=== PATIENT | male | born 1990 | race Caucasian/White ===

== ENCOUNTER 2023-03-13 07:34 | Emergency (ER) | payer OTHER, SELFPAY ==
[2023-03-13 07:37] VITALS: BP 122/94; PULSE 76; RESP 18; TEMP 36.7; O2SAT 99; BMI 24.9
--- NOTE | 2023-03-13 07:55 | XR_ITS ---
The [address] [address] Patient Name: ROSALINE WOODSON MRN: [id number] date: 1990 Sex: M Assigned Patient Location: ED.MAIN Current Patient Location: ER Accession/Order Number: [id number] Exam Date: 03/13/2023 07:48 Report Date: 03/13/2023 08:09 At the request of: MERT PACHECO Procedure: XR hand RT min 3V PROCEDURE: XR hand RT min 3V COMPARISON: None. HISTORY: injury attention rt thumb FINDINGS: BONES:No fracture, acute abnormality, or significant arthropathy. SOFT TISSUES:Negative. No visible soft tissue swelling. EFFUSION:None visible. OTHER: Negative. XR/XR hand RT min 3V IMPRESSION: No acute fracture Electronically authenticated by: GIOVANNA LOZA Date: 03/13/2023 08:09
[2023-03-13] MEDS: IBUPROFEN 600 MG TABLET PO (07:56)
--- NOTE | 2023-03-13 08:48 | ED_ITS ---
HPI - General Adult General Chief complaint: Extremity Injury, Upper Stated complaint: INJURED R THUMB IN CAR DOOR Time Seen by Provider: 03/13/23 08:48 Source: patient Mode of arrival: walk-in Limitations: no limitations History of Present Illness HPI narrative: Patient is a 32-year-old male who is presenting to the Emergency Room today with chief complaint of right thumb pain. At approximately 7 PM last night, patient had a close his right thumb In a car. Patient is right-hand dominant. 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 Patient is taken nothing today for pain. Patient is not been icing it. Patient does have a small subungual hematomas well. Patient had done research on the Internet, and patient was wondering if we really do trephination. Education on the this injury happened at 7 PM last night. The area is small, approximately 2 mm x 4 mm at the base of the nail. Mild swelling. No indication for trephination at this time. Patient understands. . All systems are negative except as noted/marked. All systems reviewed and otherwise negative. . Nurses note and vital signs reviewed and patient is not hypoxic. General: The patient appears well and in no apparent distress. Patient is resting comfortably on cart. Patient is not toxic, lethargic, or listless Skin: Warm, dry, no pallor noted. There is no rash noted. No petechiae, purpura. Head: Normocephalic, atraumatic Eye: Normal conjunctiva, no drainage, EOMI. PERRL Ears, Nose, Mouth, and Throat: oral mucosa is moist. Cardiovascular: Regular Rate and Rhythm, no murmur, gallop, rub Respiratory: Patient is in no distress, no accessory muscle use, lungs are clear to auscultation, no wheezing, rales or rhonchi Musculoskeletal: Patient has full range of motion of all of the extremities Except to the right thumb. Patient has mild pain over the proximal phalanx, moderate test palpation over the distal phalanx of the right thumb. Patient has a small subungual hematoma to the base of the right fingernail, approximately 4 x 2 mm. There is small. This is a 7 PM last night. Patient does have range of motion of the IP joint of the right thumb with mild to moderate pain. No motor, sensory, or focal neurological deficits. Neurological: A&O x3, normal speech Psychiatric: Cooperative Related Data Home Medications Medication Instructions Recorded Confirmed amitriptyline 50 mg tablet 50 mg PO .qhs 03/13/23 03/13/23 Allergies Allergy/AdvReac Type Severity Reaction Status Date / Time No Known Drug Intolerances AdvReac Intermediate Verified 03/13/23 07:37 PFSH PFSH Social History Smoking status: Current every day smoker Exam Constitutional Vital Signs, click to edit/add: Last Vital Signs Temp 98.1 F 03/13/23 07:37 Pulse 76 03/13/23 07:37 Resp 18 03/13/23 07:37 BP 122/94 H 03/13/23 07:37 Pulse Ox 99 03/13/23 07:37 Course Vital Signs Vital signs: Vital Signs Temperature 98.1 F 03/13/23 07:37 Pulse Rate 76 03/13/23 07:37 Respiratory Rate 18 03/13/23 07:37 Blood Pressure 122/94 H 03/13/23 07:37 Pulse Oximetry 99 03/13/23 07:37 Temperature 98.1 F 03/13/23 07:37 Pulse Rate 76 03/13/23 07:37 Respiratory Rate 18 03/13/23 07:37 Blood Pressure 122/94 H 03/13/23 07:37 Pulse Oximetry 99 03/13/23 07:37 Medical Decision Making MDM Narrative Medical decision making narrative: Patient's right thumb x-ray shows no acute fracture, dislocation, or acute abnormality. Patient was placed in a aluminum finger splint to the right thumb. Splint was assisted with . the patient was neurovascularly intact before and after the splint was placed. the affected bones/injured area had proper alignment in a splint. Education on splint care at home was given at bedside. Patient and family have no questions at discharge. Education was done at bedside on trephination on subungual hematoma. This injury occurred at 7 PM last night, the areas very small Subungual hematoma, no indication for trephination at this time. Patient understands. Patient will use anti-inflammatories and ice. Patient will follow-up with PCP, work restriction are given, no questions at discharge. Discharge Plan Discharge Chief Complaint: Extremity Injury, Upper Clinical Impression: Subungual hematoma, Contusion of right thumb Time of Disposition Decision: 08:54 Condition: Fair Prescriptions / Home Meds: No Action amitriptyline 50 mg tablet 50 mg PO .qhs Instructions: Subungual Hematoma (ED), Contusion in Adults (ED) Additional Instructions: Use ice 20 minutes on, 20 minutes off. Alternate Tylenol and Motrin every 6 hours to help with pain. He is aluminum finger splint for the next 2-3 days. A fter 3 days, start performing normal range of motion of flexion and extension of right thumb to get back to normal activity. Work restriction note given. Stand Alone Forms: Portal Instructions Referrals: Kai Lares MD [Primary Care Provider] - 1 week
== END 2023-03-13 09:04 | disposition home or self-care (01) ==
PROVIDERS: Emergency Provider Emergency Medicine; PCP Family Medicine
DX: S60.111A Contusion of right thumb with damage to nail, initial encounter (principal); W23.0XXA Caught, crushed, jammed, or pinched between moving objects, initial encounter; F17.210 Nicotine dependence, cigarettes, uncomplicated
CPT/HCPCS: 29130; 73130; 99283

== ENCOUNTER 2023-04-12 14:08 | Emergency (ER) | payer OTHER, SELFPAY ==
[2023-04-12 14:21] VITALS: BP 139/92; PULSE 94; RESP 20; TEMP 36.9; O2SAT 96; BMI 24.1
[2023-04-12] MEDS: 0.9 % SODIUM CHLORIDE 1,000 ML 1000 ML IV (15:37)
[2023-04-12 15:41] LABS: Basophils Absolute Auto 0.1 10^3/uL (0.0-0.1); Basophils Percent Auto 0.4 % (0.2-2.0); Eosinophils Percent Auto 0.3 % (0.9-7.0); Hematocrit 42.3 % (42.0-54.0); Hemoglobin 14.5 g/dL (14.0-18.0); Immature Granulocytes Abs Auto 0.05 10^3/uL (0.00-0.03); Immature Granulocytes Pct Auto 0.4 % (0.0-0.5); Lymphocytes Absolute Auto 1.8 10^3/uL (1.2-3.8); Lymphocytes Percent Auto 14.4 % (20.5-60.0); Mean Corpuscular HGB Conc 34.3 g/dL (29.9-35.2); Mean Corpuscular Hemoglobin 31.1 pg (25.9-34.0); Mean Corpuscular Volume 90.8 fL (80.0-94.0); Mean Platelet Volume 9.3 fL (9.5-13.5); Monocytes Absolute Auto 0.8 10^3/uL (0.3-0.8); Monocytes Percent Auto 6.3 % (1.7-12.0); Neutrophils Absolute Auto 9.7 10^3/uL (1.4-6.5); Neutrophils Percent Auto 78.2 % (43.0-75.0); Platelet Count 280 10^3/uL (150-450); Red Blood Count 4.66 10^6/uL (4.70-6.10); Red Cell Distribution Width 13.4 % (11.0-15.0); White Blood Count 12.5 10^3/uL (4.0-11.0)
--- NOTE | 2023-04-12 15:44 | PC.NURSE ---
pt presents to ED c/o epigastric pain for the last 3 days and nausea/vomiting. pt states he has thrown up twice today. 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 pt states he has had similar episodes in the past.
--- NOTE | 2023-04-12 15:45 | ED.ABDPAIN1 ---
HPI - Abdominal Pain General Chief Complaint: Abdominal Pain Stated Complaint: ABDOMINAL PAIN Time Seen by Provider: 04/12/23 15:19 Source: patient Mode of arrival: walk-in Limitations: no limitations History of Present Illness HPI narrative: 32-year-old male presents for generalized abdominal pain that started 5 days ago. He states it is getting worse. He complains of nausea no vomiting. Denies frequent alcohol intake. Denies radiation of pain. Denies fever, back pain, v/d, SOB or CP Related Data Home Medications Medication Instructions Recorded Confirmed amitriptyline 50 mg tablet 50 mg PO .qhs 03/13/23 03/13/23 Previous Rx's Medication Instructions Recorded lactulose 10 gram/15 mL (15 mL) 20 g (30 mL) PO DAILY PRN 04/12/23 oral solution constipation 5 days #150 mL Allergies Allergy/AdvReac Type Severity Reaction Status Date / Time No Known Drug Intolerances AdvReac Intermediate Verified 03/13/23 07:37 Review of Systems ROS Status of ROS 10 or more systems reviewed and unremarkable except as noted in history and below [facility] Social History Smoking status: Heavy tobacco smoker Exam Narrative Exam Narrative: General: alert, moderate distress due to pain, talking in full an complete sentences skin: warm, dry, intact head: normocephalic, atraumatic eyes: EOMI nose: nares patent neck: supple, trachea midline respiratory: non-labored extremities: FROM x 4, strength +5/5 abd: soft, generalized tenderness, no guarding or rigidity, no peritoneal signs, normal BS neuro: A&Ox3 psych: appropriate mood and affect, cooperative Constitutional Vital Signs, click to edit/add: Last Vital Signs Temp 98.5 F 04/12/23 14:21 Pulse 115 H 04/12/23 17:55 Resp 20 04/12/23 14:21 BP 115/88 04/12/23 17:55 Pulse Ox 95 04/12/23 17:55 O2 Del Method Room Air 04/12/23 14:21 Course Vital Signs Vital signs: Vital Signs Temperature 98.5 F 04/12/23 14:21 Pulse Rate 94 H 04/12/23 14:21 Respiratory Rate 20 04/12/23 14:21 Blood Pressure 139/92 H 04/12/23 14:21 Pulse Oximetry 96 04/12/23 14:21 Oxygen Delivery Method Room Air 04/12/23 14:21 Temperature 98.5 F 04/12/23 14:21 Pulse Rate 115 H 04/12/23 17:55 Respiratory Rate 20 04/12/23 14:21 Blood Pressure 115/88 04/12/23 17:55 Pulse Oximetry 95 04/12/23 17:55 Oxygen Delivery Method Room Air 04/12/23 14:21 MDM - Abdominal Pain MDM Narrative Medical decision making narrative: Patient's lips appear dry will be given IV fluids and Toradol. Nurse informs me that he declined the Toradol and states that this does not work and the only things that work for him is morphine and Dilaudid. He states that if he does not receive either of these narcotic medications that he is leaving. [facility] reviewed. CAT scan came to get patient and he declined and is requesting nausea medication will be given Zofran. WBC 12.5. Patient is now in agreements to take the Toradol. Patient is continuing to complain of pain and is continuing to threaten to leave if he does not get narcotics. Patient states Dr. Lares had him admitted for a week in the past and gave him narcotics. He states that he knows what works and what does not. I did order Bentyl. He declined this. No acute findings on final read of CT, other than constipation. Dose of lactulose is ordered. Records reviewed from previous admission 6 months ago when he was admitted for dehydration due to hyperemesis secondary to cyclic vomiting syndrome as he does smoke cannabis. Normal lactic and no signs of problems related to SMA. Upon recheck, he is sitting on the bed comfortably and will be given a prescription for lactulose and follow-up with family doctor. repeat pulse 90. afebrile, not tachypneic, not tachycardic, tolerating p.o., not hypoxic, non toxic appearing and hemodynamically stable to be d/c. answered all questions. pt in agreement with tx. educated when to return to ER. Medical Records Attestation: I reviewed the patient's medical records. Lab Data Labs: Lab Results 04/12/23 04/12/23 Range/Units 15:32 17:15 WBC 12.5 H (4.0-11.0) 10^3/uL RBC 4.66 L (4.70-6.10) 10^6/uL Hgb 14.5 (14.0-18.0) g/dL Hct 42.3 (42.0-54.0) % MCV 90.8 (80.0-94.0) fL MCH 31.1 (25.9-34.0) pg MCHC 34.3 (29.9-35.2) g/dL RDW 13.4 (11.0-15.0) % Plt Count 280 (150-450) 10^3/uL MPV 9.3 L (9.5-13.5) fL Neut % (Auto) 78.2 H (43.0-75.0) % Lymph % (Auto) 14.4 L (20.5-60.0) % Luce % (Auto) 6.3 (1.7-12.0) % Eos % (Auto) 0.3 L (0.9-7.0) % Baso % (Auto) 0.4 (0.2-2.0) % Neut # (Auto) 9.7 H (1.4-6.5) 10^3/uL Lymph # (Auto) 1.8 (1.2-3.8) 10^3/uL Luce # (Auto) 0.8 (0.3-0.8) 10^3/uL Eos # (Auto) 0.0 (0.0-0.7) 10^3/uL Baso # (Auto) 0.1 (0.0-0.1) 10^3/uL Abs Immat Gran (auto) 0.05 H (0.00-0.03) 10^3/uL Imm/Tot Granulo (auto) 0.4 (0.0-0.5) % Sodium 136 (136-145) mmol/L Potassium 4.5 (3.5-5.1) mmol/L Chloride 102 (98-107) mmol/L Carbon Dioxide 26.6 (21.0-32.0) mmol/L Anion Gap 11.9 BUN 16.0 (7.0-18.0) mg/dL Creatinine 0.79 (0.70-1.30) mg/dL Est GFR ( Amer) >60 (>=60) Est GFR (Non-Af Amer) >60 (>=60) BUN/Creatinine Ratio 20.3 Glucose 112 H (74-106) mg/dL Lactate 0.5 (0.4-2.0) mmol/L Calcium 10.1 (8.5-10.1) mg/dL Magnesium 2.3 (1.8-2.4) mg/dL Total Bilirubin 0.5 (0.2-1.0) mg/dL AST 20 (15-37) U/L ALT 37 (16-63) U/L Alkaline Phosphatase 94 (46-116) U/L Total Protein 8.1 (6.4-8.2) g/dL Albumin 4.4 (3.4-5.0) g/dL Globulin 3.7 g/dL Albumin/Globulin Ratio 1.2 Urine Color Yellow (YELLOW) Urine Clarity Clear (CLEAR) Urine pH 7.0 (5.0-9.0) Ur Specific [place] 1.015 (1.005-1.025) Urine Protein Trace (NEG/TRACE) mg/dL Urine Glucose (UA) Negative (NEGATIVE) mg/dL Urine Ketones 15 A (NEGATIVE) mg/dL Urine Occult Blood Negative (NEGATIVE) Urine Nitrite Negative (NEGATIVE) Urine Bilirubin Negative (NEGATIVE) Urine Urobilinogen 0.2 (0.2-1.0) EU/dL Ur Leukocyte Esterase Negative (NEGATIVE) Urine RBC 0-2 (0-2) #/HPF Urine WBC None seen (NONE SEEN) #/HPF Ur Squamous Epith Cells None seen (NONE/RARE) #/LPF Urine Crystals None seen (None Seen) #/HPF Urine Bacteria Trace A (NONE SEEN) #/HPF Urine Casts None seen (NONE SEEN) #/LPF Urine Mucus Moderate A (NONE SEEN) Urine Opiates Screen Negative (NEGATIVE) Ur Buprenorphine Scrn Negative (NEGATIVE) Ur Oxycodone Screen Negative (NEGATIVE) Urine Methadone Screen Negative (NEGATIVE) Ur Propoxyphene Screen Negative (NEGATIVE) Ur Barbiturates Screen Negative (NEGATIVE) U Tricyclic Antidepress Positive A (NEGATIVE) Ur Phencyclidine Scrn Negative (NEGATIVE) Ur Amphetamines Screen Negative (NEGATIVE) U Methamphetamines Scrn Negative (NEGATIVE) U Benzodiazepines Scrn Negative (NEGATIVE) Urine Cocaine Screen Negative (NEGATIVE) U Cannabinoids Screen Positive A (NEGATIVE) Discharge Plan Discharge Chief Complaint: Abdominal Pain Clinical Impression: Abdominal pain Qualifiers: Abdominal location: generalized Qualified Code(s): R10.84 - Generalized abdominal pain Constipation Qualifiers: Constipation type: unspecified constipation type Qualified Code(s): K59.00 - Constipation, unspecified Patient Disposition: Home, Self-Care Time of Disposition Decision: 17:59 Condition: Good Mode of Transportation: Private Vehicle Prescriptions / Home Meds: New lactulose 10 gram/15 mL (15 mL) solution 20 g PO DAILY PRN (Reason: constipation) 5 Days Qty: 150 0RF No Action amitriptyline 50 mg tablet 50 mg PO .qhs Instructions: Constipation (ED), Abdominal Pain (ED) Stand Alone Forms: Portal Instructions Referrals: Kai Lares MD [Primary Care Provider] - 1 week
[2023-04-12 15:53] LABS: Anion Gap 11.9; Carbon Dioxide 26.6 mmol/L (21.0-32.0); Chloride 102 mmol/L (98-107); Glucose 112 mg/dL (74-106); Magnesium 2.3 mg/dL (1.8-2.4); Potassium 4.5 mmol/L (3.5-5.1); Sodium 136 mmol/L (136-145)
[2023-04-12 15:54] LABS: Alanine Aminotransferase 37 U/L (16-63); Albumin Globulin Ratio 1.2; Albumin Level 4.4 g/dL (3.4-5.0); Alkaline Phosphatase 94 U/L (46-116); Aspartate Amino Transferase 20 U/L (15-37); BUN Creatinine Ratio 20.3; Bilirubin Total 0.5 mg/dL (0.2-1.0); Calcium 10.1 mg/dL (8.5-10.1); Estimated GFR (African America >60 (>=60); Estimated GFR (Non-African Ame >60 (>=60); Globulin 3.7 g/dL; Total Protein 8.1 g/dL (6.4-8.2)
[2023-04-12 16:27] LABS: Lactate/Lactic Acid 0.5 mmol/L (0.4-2.0)
[2023-04-12 16:30] VITALS: BP 137/93
[2023-04-12] MEDS: KETOROLAC TROMETHAMINE 30 MG/ML VIAL 15 MG IVP (16:30)
[2023-04-12] MEDS: ONDANSETRON PF 4 MG/2 ML VIAL IV (16:30)
--- NOTE | 2023-04-12 16:53 | CT_ITS ---
The [address] [address] Patient Name: ROSALINE WOODSON MRN: [id number] date: 1990 Sex: M Assigned Patient Location: ER Current Patient Location: ER Accession/Order Number: [id number] Exam Date: 04/12/2023 16:48 Report Date: 04/12/2023 17:18 At the request of: MATY SANCHEZ Procedure: CT abdomen pelvis w con EXAM: CT abdomen pelvis w con HISTORY: pain COMPARISON: 08/12/2022 TECHNIQUE: Axial CT imaging was performed through the abdomen and pelvis with intravenous contrast. Multiplanar reformats were performed. Dose reduction techniques were achieved by using automated exposure control and/or adjustment of mA and/or kV according to patient size and/or use of iterative reconstruction technique. FINDINGS: Lung bases: Lung bases are clear. No pleural effusion. GI upper: Unremarkable. Liver: Normal size and contour. Gallbladder: No significant abnormality. No cholelithiasis. Biliary system: No intra or extrahepatic biliary ductal dilatation. Spleen: Normal size. Pancreas: Unremarkable. Adrenal glands: Normal adrenal glands. Kidneys/ureters: Normal contours. No hydronephrosis. No nephrolithiasis or ureterolithiasis. Vessels: No aneurysm. Lymph Nodes: No lymphadenopathy. Small bowel: No wall thickening or dilatation. Colon: No wall thickening or dilatation. Constipation. Appendix: No findings of appendicitis. Peritoneal cavity: No free fluid or pneumoperitoneum. Lower : Unremarkable. Bones: No acute bony abnormality. Soft tissues: No acute finding. Additional findings: None. CT/CT abdomen pelvis w con IMPRESSION: No acute abnormality. Constipation. Electronically authenticated by: RAJENDRA ELLIS Date: 04/12/2023 17:18
[2023-04-12] MEDS: DICYCLOMINE HCL 20 MG/2 ML VIAL IM (17:25)
[2023-04-12 17:36] LABS: Amphetamine Screen Urine NEGATIVE (NEGATIVE); Barbiturates Screen Urine NEGATIVE (NEGATIVE); Benzodiazepines Screen Urine NEGATIVE (NEGATIVE); Buprenorphine Screen Urine NEGATIVE (NEGATIVE); Cannabinoid Screen Urine POSITIVE (NEGATIVE); Cocaine Screen Urine NEGATIVE (NEGATIVE); Methadone Screen Urine NEGATIVE (NEGATIVE); Methamphetamines Screen Urine NEGATIVE (NEGATIVE); Opiate Screen Urine NEGATIVE (NEGATIVE); Oxycodone Screen Urine NEGATIVE (NEGATIVE); Phencyclidine Screen Urine NEGATIVE (NEGATIVE); Tricyclic Antidepressant Urine POSITIVE (NEGATIVE)
[2023-04-12 17:39] LABS: Bilirubin Urine NEGATIVE (NEGATIVE); Blood Urine NEGATIVE (NEGATIVE); Clarity Urine CLEAR (CLEAR); Color Urine YELLOW (YELLOW); Glucose Urine UA NEGATIVE (NEGATIVE); Ketones Urine 15 mg/dL (NEGATIVE); Leukocyte Esterase Urine NEGATIVE (NEGATIVE); Nitrite Urine NEGATIVE (NEGATIVE); Protein Urine TRACE mg/dL (NEG/TRACE); Specific Gravity Urine 1.015 (1.005-1.025); Urobilinogen Urine 0.2 EU/dL (0.2-1.0)
[2023-04-12] MEDS: LACTULOSE 10 GM/15 ML UD CUP 30 GM PO (17:51)
[2023-04-12 17:54] LABS: Bacteria Urine TRACE #/HPF (NONE SEEN); Mucus Urine MODERATE (NONE SEEN); RBC Urine 0-2 #/HPF (0-2); WBC Urine NONE SEEN #/HPF (NONE SEEN)
[2023-04-12 17:55] VITALS: BP 115/88; PULSE 115; O2SAT 95
[2023-04-12 17:55] LABS: Cast Seen? NONE SEEN #/LPF (NONE SEEN); Crystals Seen? None Seen #/HPF (None Seen); Squamous Epithelial Cell Urine NONE SEEN #/LPF (NONE/RARE)
[2023-04-12 18:11] VITALS: PULSE 113
== END 2023-04-12 18:12 | disposition home or self-care (01) ==
PROVIDERS: Physician Assistant; Emergency Provider Emergency Medicine; PCP Family Medicine
DX: R10.84 Generalized abdominal pain (principal); K59.00 Constipation, unspecified; Z79.899 Other long term (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 therapy; F17.210 Nicotine dependence, cigarettes, uncomplicated
CPT/HCPCS: 36415; 74177; 80053; 80307; 81001; 83605; 83735; 85025; 96372; 96374; 96375; 99285; J0500; Q9967

== ENCOUNTER 2023-04-13 02:23 | Observation (INO) | payer OTHER, SELFPAY ==
[2023-04-13 02:24] VITALS: BP 130/70; PULSE 92; RESP 18; TEMP 37.4; O2SAT 99
--- NOTE | 2023-04-13 02:49 | PC.NURSE ---
pt brought in by ems. pt was recently here in ER around 4pm yesterday for similar symptoms nausea/vomiting, and abdominal pain. 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 when patient was here earlier he was given toradol and bentyl and states that they didn't do anything for his pain. patient was diagnosed with constipation and sent home with prescription for lactulose. patient states ever since he got home he has had continuous n/v and abdominal pain. patient is rolling around in bed in pain. patient states he has not had a bowel movement since being discharged.
--- NOTE | 2023-04-13 02:53 | ED_ITS ---
Documented by User: Elsy Aguillon MD 04/13/23 06:30 HPI - Abdominal Pain General Chief Complaint: Abdominal Pain Stated Complaint: ab pain Time Seen by Provider: 04/13/23 02:48 Source: patient Mode of arrival: ambulance Limitations: no limitations History of Present Illness HPI narrative: This 32-year-old male presents for reevaluation. He was seen earlier in this emergency department for abdominal pain with nausea vomiting. When he was not offered morphine or Dilaudid for his pain he threatened to sign out several times. He was given Toradol and Bentyl. He was also given IV fluids and Zofran. He was discharged in stable condition after having a normal CT scan and labs with a normal lactic acid. CT scan showed constipation. 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 He states to me I am not drug-seeking but I need morphine or Dilaudid to control my pain Related Data Home Medications Medication Instructions Recorded Confirmed amitriptyline 50 mg tablet 50 mg PO .qhs 03/13/23 03/13/23 Previous Rx's Medication Instructions Recorded lactulose 10 gram/15 mL (15 mL) 20 g (30 mL) PO DAILY PRN 04/12/23 oral solution constipation 5 days #150 mL Allergies Allergy/AdvReac Type Severity Reaction Status Date / Time No Known Drug Intolerances AdvReac Intermediate Verified 03/13/23 07:37 Review of Systems ROS Status of ROS 10 or more systems reviewed and unremarkable except as noted in history and below PFS PFS Social History Smoking status: Current every day smoker Exam Narrative Exam Narrative: Nurses note and vital signs reviewed and patient is not hypoxic. General: Nontoxic male, he is sitting at the end of the bed dry heaving into an emesis bag, no respiratory distress Skin: Warm, dry, no pallor noted. There is no rash noted. Head: Normocephalic, atraumatic Eye: Normal conjunctiva, no drainage, EOMI. PERRL Cardiovascular: Regular Rate and Rhythm Respiratory: Patient is in no distress, no accessory muscle use, lungs are clear to auscultation, no wheezing, rales or rhonchi Back: non-tender, no CVA tenderness bilaterally to percussion. GI: Soft, flat, generalized abdominal tenderness, no pulsatile masses, mildly hypoactive bowel sounds Musculoskeletal: The patient has no evidence of calf tenderness, no pitting edema, symmetrical pulses noted bilaterally Neurological: A&O x4, normal speech Psychiatric: anxious, demanding Constitutional Vital Signs, click to edit/add: Last Vital Signs Temp 99.4 F 04/13/23 02:24 Pulse 92 H 04/13/23 02:24 Resp 18 04/13/23 02:24 BP 130/70 04/13/23 02:24 Pulse Ox 99 04/13/23 02:24 O2 Del Method Room Air 04/13/23 02:24 Course Vital Signs Vital signs: Vital Signs Temperature 99.4 F 04/13/23 02:24 Pulse Rate 92 H 04/13/23 02:24 Respiratory Rate 18 04/13/23 02:24 Blood Pressure 130/70 04/13/23 02:24 Pulse Oximetry 99 04/13/23 02:24 Oxygen Delivery Method Room Air 04/13/23 02:24 Temperature 99.4 F 04/13/23 02:24 Pulse Rate 92 H 04/13/23 02:24 Respiratory Rate 18 04/13/23 02:24 Blood Pressure 130/70 04/13/23 02:24 Pulse Oximetry 99 04/13/23 02:24 Oxygen Delivery Method Room Air 04/13/23 02:24 MDM - Abdominal Pain MDM Narrative Medical decision making narrative: This 32-year-old male presents for evaluation of ongoing abdominal pain. He was seen in this emergency department yesterday foor abdominal pain with nausea and vomiting. He was demanding narcotics at that time. He does not receive narcotics and was discharged home after he had normal labs and a normal CT scan that otherwise showed constipation. His urine tox was positive for marijuana and tri cyclic antidepressants. He has been prescribed amitriptyline. He was prescribed lactulose for his constipation. He did not fill that prescription. He called EMS in the middle of the night for ongoing abdominal pain with nausea vomiting. Upon arrival he was taken to room 9 and seen and evaluated. His abdomen is soft, bowel sounds are minimally hypoactive, there are no pulsatile masses. The patient is insistent that he has SMA syndrome. I explained to him that the likelihood is that he does not have SMA syndrome in light of the fact that he had a normal lactic acid but I agreed to repeat a lactic acid, routine labs and medicate him with what I felt was appropriate for his presentation including a recent diagnosis of constipation. I explained to him that narcotic analgesics are going to make his constipation worse. The patient has been on the call light approximately every 15-20 minutes demanding medication for his pain. I again explained to him that if I find something in his workup that is indicative of requiring necrotic analgesics I will give him narcotic analgesics. He was given IV Phenergan and IV fluids, IV Zofran, and Levsin. Routine labs were repeated and again are normal with a lactic acid 0.8. He has a normal BUN/Cr and CO2, indicating that he is not severely dehydrated despite his insistence that he cannot stop vomiting. CT angiogram was ordered to rule out SMA syndrome. The CTA is included in the body of this report and does not show any findings that are consistent with her concerning for SMA syndrome, however again it does show a large amount of stool consistent with constipation.. This was extending to the patient. He is still writhing around stating that he does not have any relief of his face. He also states he is having ongoing nausea and vomiting. He does have a history of cyclic vomiting in the past. He has had very minimal vomiting in the emergency department but requested several emesis bags stating that he had filled them up. This was notably not true. I ordered an EKG to review the QT intervals and they are 324ms and QTc 380 ms. He was then medicated for his cyclic vomiting with IM Haldol. Medical Records Medical records narrative: The [address] [address] [address] Scan Report Signed Patient: ROSALINE WOODSON MR#: [id number] : 1990 Acct:[id number] Age/Sex: 32 / M ADM Date: 04/13/23 Loc: ER Attending Dr: Ordering Physician: Elsy Aguillon Date of Service: 04/13/23 Procedure(s): CT angio abdomen pelvis Accession Number(s): [id number] cc: Kai Lares M.D.~ The [address] [address] Patient Name: ROSALINE WOODSON MRN: [id number] date: 1990 Sex: M Assigned Patient Location: ER Current Patient Location: Accession/Order Number: [id number] Exam Date: 04/13/2023 03:25 Report Date: 04/13/2023 05:44 At the request of: ELSY MARKER Procedure: CT angio abdomen pelvis EXAM: CT angio abdomen pelvis HISTORY: Abdominal pain for 4 days; 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 COMPARISON: CT abdomen/pelvis dated 04/12/2023, CTA abdomen/pelvis dated 08/12/[address] abdomen/pelvis dated 08/11/2022. TECHNIQUE: Routine CTA abdomen/pelvis with intravenous contrast. FINDINGS: The abdominal aorta is unremarkable. There is no aneurysm or dissection. The celiac trunk, common hepatic artery, left gastric artery and splenic artery are unremarkable. The aortomesenteric angle is 50 degrees which falls within the realm of normal (normal range 28 to 65 degrees). The aortomesenteric distance is diminished measuring 0.6 cm (normal range 1.0 to 3.4 cm). There is no distention/dilatation of the first and second portions of the duodenum. The renal arteries are unremarkable with a small accessory renal artery bilaterally. The DOLORES is unremarkable. The iliac and common femoral arteries are unremarkable. The IVC is unremarkable. Stable 0.3 cm noncalcified pleural-based nodule lateral right lower chest (series 4 image 20). The liver is unremarkable. There is vicarious excretion of contrast within the gallbladder. The biliary tree is unremarkable. The pancreas and spleen are unremarkable. The bilateral adrenal glands and bilateral kidneys are unremarkable. Nonobstructive bowel gas pattern. There is a moderately large amount of stool within the ascending, transverse and proximal descending colon. The colon, appendix, distal esophagus, stomach and small bowel are unremarkable. As previously indicated there is no distention or dilatation of the duodenum. There is no free air, free fluid or inflammatory reaction. There are no pathologically enlarged lymph nodes within the abdomen/pelvis. The unopacified urinary bladder is unremarkable. The prostate gland is unremarkable. Small fibrocyst proximal femur bilaterally. CT/CT angio abdomen pelvis IMPRESSION: The aortomesenteric distance is diminished measuring 0.6 cm however the aortomesenteric angle is normal and there is no distention/dilatation of the duodenum. Correlate with clinical findings to further assess for SMA syndrome. Nonobstructive bowel gas pattern with a moderately large amount of stool within the ascending, transverse and proximal descending colon. There is no free air, free fluid or inflammatory reaction. Vicarious excretion of contrast within the gallbladder. Lab Data Labs: Lab Results 04/13/23 Range/Units 03:00 Sodium 137 (136-145) mmol/L Potassium 3.7 (3.5-5.1) mmol/L Chloride 103 (98-107) mmol/L Carbon Dioxide 27.3 (21.0-32.0) mmol/L Anion Gap 10.4 BUN 18.0 (7.0-18.0) mg/dL Creatinine 0.85 (0.70-1.30) mg/dL Est GFR ( Amer) >60 (>=60) Est GFR (Non-Af Amer) >60 (>=60) BUN/Creatinine Ratio 21.2 Glucose 131 H (74-106) mg/dL Lactate 0.8 (0.4-2.0) mmol/L Calcium 9.6 (8.5-10.1) mg/dL Total Bilirubin 0.5 (0.2-1.0) mg/dL AST 18 (15-37) U/L ALT 28 (16-63) U/L Alkaline Phosphatase 85 (46-116) U/L Total Protein 7.6 (6.4-8.2) g/dL Albumin 4.2 (3.4-5.0) g/dL Globulin 3.4 g/dL Albumin/Globulin Ratio 1.2 ECG Data Attestation: I personally reviewed and interpreted this ECG as follows: (Sinus rhythm at 99 bpm, normal axis, interpretation limited by patient movement, ID interval 136 ms QT RS duration 114 ms QT intervals 324 ms QTC [address] segment elevation or T-wave inversion) Discharge Plan Discharge Chief Complaint: Abdominal Pain Clinical Impression: Cyclic vomiting syndrome, Constipation Patient Disposition: Still a Patient Time of Disposition Decision: 07:40 Condition: Good Mode of Transportation: Private Vehicle Prescriptions / Home Meds: No Action amitriptyline 50 mg tablet 50 mg PO .qhs lactulose 10 gram/15 mL (15 mL) solution 20 g PO DAILY PRN (Reason: constipation) 5 Days Qty: 150 0RF Instructions: Constipation (ED) Additional Instructions: [id number] MiraLAX. Stand Alone Forms: Portal Instructions Referrals: Kai Lares MD [Primary Care Provider] - 1 week Documented by User: Ernesto Mathias MD 04/13/23 07:41 HPI - Abdominal Pain General Chief Complaint: Abdominal Pain Stated Complaint: ab pain Time Seen by Provider: 04/13/23 02:48 Related Data Home Medications Medication Instructions Recorded Confirmed amitriptyline 50 mg tablet 50 mg PO .qhs 03/13/23 03/13/23 Previous Rx's Medication Instructions Recorded lactulose 10 gram/15 mL (15 mL) 20 g (30 mL) PO DAILY PRN 04/12/23 oral solution constipation 5 days #150 mL Allergies Allergy/AdvReac Type Severity Reaction Status Date / Time No Known Drug Intolerances AdvReac Intermediate Verified 03/13/23 07:37 PFSH PFSH Social History Smoking status: Current every day smoker Exam Constitutional Vital Signs, click to edit/add: Last Vital Signs Temp 99.4 F 04/13/23 02:24 Pulse 92 H 04/13/23 02:24 Resp 18 04/13/23 02:24 BP 130/70 04/13/23 02:24 Pulse Ox 99 04/13/23 02:24 O2 Del Method Room Air 04/13/23 02:24 Course Vital Signs Vital signs: Vital Signs Temperature 99.4 F 04/13/23 02:24 Pulse Rate 92 H 04/13/23 02:24 Respiratory Rate 18 04/13/23 02:24 Blood Pressure 130/70 04/13/23 02:24 Pulse Oximetry 99 04/13/23 02:24 Oxygen Delivery Method Room Air 04/13/23 02:24 Temperature 99.4 F 04/13/23 02:24 Pulse Rate 92 H 04/13/23 02:24 Respiratory Rate 18 04/13/23 02:24 Blood Pressure 130/70 04/13/23 02:24 Pulse Oximetry 99 04/13/23 02:24 Oxygen Delivery Method Room Air 04/13/23 02:24 MDM - Abdominal Pain MDM Narrative Medical decision making narrative: This 32-year-old male presents for evaluation of ongoing abdominal pain. He was seen in this emergency department yesterday foor abdominal pain with nausea and vomiting. He was demanding narcotics at that time. He does not receive narcotics and was discharged home after he had normal labs and a normal CT scan that otherwise showed constipation. His urine tox was positive for marijuana and tricyclic antidepressants. He has been prescribed amitriptyline. He was prescribed lactulose for his constipation. He did not fill that prescription. He called EMS in the middle of the night for ongoing abdominal pain with nausea vomiting. Upon arrival he was taken to room 9 and seen and evaluated. His abdomen is soft, bowel sounds are minimally hypoactive, there are no pulsatile masses. The patient is insistent that he has SMA syndrome. I explained to him that the likelihood is that he does not have SMA syndrome in light of the fact that he had a normal lactic acid but I agreed to repeat a lactic acid, routine labs and medicate him with what I felt was appropriate for his presentation inc luding a recent diagnosis of constipation. I explained to him that narcotic analgesics are going to make his constipation worse. The patient has been on the call light approximately every 15-20 minutes demanding medication for his pain. I again explained to him that if I find something in his workup that is indicative of requiring necrotic analgesics I will give him narcotic analgesics. He was given IV Phenergan and IV fluids, IV Zofran, and Levsin. Routine labs were repeated and again are normal with a lactic acid 0.8. He has a normal BUN/Cr and CO2, indicating that he is not severely dehydrated despite his insistence that he cannot stop vomiting. CT angiogram was ordered to rule out SMA syndrome. The CTA is included in the body of this report and does not show any findings that are consistent with her concerning for SMA syndrome, however again it does show a large amount of stool consistent with constipation.. This was extending to the patient. He is still writhing around stating that he does not have any relief of his face. He also states he is having ongoing nausea and vomiting. He does have a history of cyclic vomiting in the past. He has had very minimal vomiting in the emergency department but requested several emesis bags stating that he had filled them up. This was notably not true. I ordered an EKG to review the QT intervals and they are 324ms and QTc 380 ms. He was then medicated for his cyclic vomiting with IM Haldol. JK 7:[address] from yesterday and CT scan from today were reviewed. It shows significant constipation. He was advised that narcotics are not indicated. He is already been given Haldol here, ordered by Dr. Aguillon. He is being given Dulcolax here and a bottle of magnesium citrate and was recommended MiraLAX as well. Treatment diagnosis and follow-up were discussed with the patient. He was given Dulcolax here and sent home with magnesium citrate. Differential Diagnosis Differential diagnosis: Likely abdominal pain, calculus of kidney, constipation, diverticulitis, gastroenteritis, pancreatitis and small bowel obstruction Lab Data Attestation: I reviewed the patient's lab results. Labs: Lab Results 04/13/23 Range/Units 03:00 Sodium 137 (136-145) mmol/L Potassium 3.7 (3.5-5.1) mmol/L Chloride 103 (98-107) mmol/L Carbon Dioxide 27.3 (21.0-32.0) mmol/L Anion Gap 10.4 BUN 18.0 (7.0-18.0) mg/dL Creatinine 0.85 (0.70-1.30) mg/dL Est GFR ( Amer) >60 (>=60) Est GFR (Non-Af Amer) >60 (>=60) BUN/Creatinine Ratio 21.2 Glucose 131 H (74-106) mg/dL Lactate 0.8 (0.4-2.0) mmol/L Calcium 9.6 (8.5-10.1) mg/dL Total Bilirubin 0.5 (0.2-1.0) mg/dL AST 18 (15-37) U/L ALT 28 (16-63) U/L Alkaline Phosphatase 85 (46-116) U/L Total Protein 7.6 (6.4-8.2) g/dL Albumin 4.2 (3.4-5.0) g/dL Globulin 3.4 g/dL Albumin/Globulin Ratio 1.[address] scan - abdomen: Radiologist's impression: Procedure: CT angio abdomen pelvis EXAM: CT angio abdomen pelvis HISTORY: Abdominal pain for 4 days; 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 COMPARISON: CT abdomen/pelvis dated 04/12/2023, CTA abdomen/pelvis dated 08/12/[address] abdomen/pelvis dated 08/11/2022. TECHNIQUE: Routine CTA abdomen/pelvis with intravenous contrast. FINDINGS: The abdominal aorta is unremarkable. There is no aneurysm or dissection. The celiac trunk, common hepatic artery, left gastric artery and splenic artery are unremarkable. The aortomesenteric angle is 50 degrees which falls within the realm of normal (normal range 28 to 65 degrees). The aortomesenteric distance is diminished measuring 0.6 cm (normal range 1.0 to 3.4 cm). There is no distention/dilatation of the first and second portions of the duodenum. The renal arteries are unremarkable with a small accessory renal artery bilaterally. The DOLORES is unremarkable. The iliac and common femoral arteries are unremarkable. The IVC is unremarkable. Stable 0.3 cm noncalcified pleural-based nodule lateral right lower chest (series 4 image 20). The liver is unremarkable. There is vicarious excretion of contrast within the gallbladder. The biliary tree is unremarkable. The pancreas and spleen are unremarkable. The bilateral adrenal glands and bilateral kidneys are unremarkable. Nonobstructive bowel gas pattern. There is a moderately large amount of stool within the ascending, transverse and proximal descending colon. The colon, appendix, distal esophagus, stomach and small bowel are unremarkable. As previously indicated there is no distention or dilatation of the duodenum. There is no free air, free fluid or inflammatory reaction. There are no pathologically enlarged lymph nodes within the abdomen/pelvis. The unopacified urinary bladder is unremarkable. The prostate gland is unremarkable. Small fibrocyst proximal femur bilaterally. IMPRESSION: The aortomesenteric distance is diminished measuring 0.6 cm however the aortomesenteric angle is normal and there is no distention/dilatation of the duodenum. Correlate with clinical findings to further assess for SMA syndrome. Nonobstructive bowel gas pattern with a moderately large amount of stool within the ascending, transverse and proximal descending colon. There is no free air, free fluid or inflammatory reaction. Vicarious excretion of contrast within the gallbladder. Electronically authenticated by: SAVANNAH STONE Date: 04/13/2023 05:44 Discharge Plan Discharge Chief Complaint: Abdominal Pain Clinical Impression: Cyclic vomiting syndrome, Constipation Patient Disposition: Still a Patient Time of Disposition Decision: 07:40 Condition: Good Mode of Transportation: Private Vehicle Prescriptions / Home Meds: No Action amitriptyline 50 mg tablet 50 mg PO .qhs lactulose 10 gram/15 mL (15 mL) solution 20 g PO DAILY PRN (Reason: constipation) 5 Days Qty: 150 0RF Instructions: Constipation (ED) Additional Instructions: [id number] MiraLAX. Stand Alone Forms: Portal Instructions Referrals: Kai Lares MD [Primary Care Provider] - 1 week
[2023-04-13] MEDS: PROMETHAZINE HCL 25 MG/ML VIAL IV (03:23)
[2023-04-13] MEDS: LACTATED RINGER'S SOLUTION 1,000 ML 1000 ML IV (03:23)
[2023-04-13 03:32] LABS: Alanine Aminotransferase 28 U/L (16-63); Albumin Globulin Ratio 1.2; Albumin Level 4.2 g/dL (3.4-5.0); Alkaline Phosphatase 85 U/L (46-116); Anion Gap 10.4; Aspartate Amino Transferase 18 U/L (15-37); BUN Creatinine Ratio 21.2; Bilirubin Total 0.5 mg/dL (0.2-1.0); Calcium 9.6 mg/dL (8.5-10.1); Carbon Dioxide 27.3 mmol/L (21.0-32.0); Chloride 103 mmol/L (98-107); Estimated GFR (African America >60 (>=60); Estimated GFR (Non-African Ame >60 (>=60); Globulin 3.4 g/dL; Glucose 131 mg/dL (74-106); Potassium 3.7 mmol/L (3.5-5.1); Sodium 137 mmol/L (136-145); Total Protein 7.6 g/dL (6.4-8.2)
[2023-04-13 03:35] LABS: Lactate/Lactic Acid 0.8 mmol/L (0.4-2.0)
[2023-04-13] MEDS: HYOSCYAMINE SULFATE 0.125 MG TAB.SUBL PO (04:02)
--- NOTE | 2023-04-13 05:49 | ECG_ITS ---
The [facility] Test Date: 2023-04-13 Pat Name: ROSALINE WOODSON Department: Room: - Gender: Male [employer]: : 1990 Requested By: ANKUSH CARROLL Order Number: [id number] Reading MD: ANKUSH CARROLL Measurements Intervals [place] Rate: 99 P: 69 IA: 136 QRS: 91 QRSD: 114 T: 61 QT: 324 QTc: 380 Interpretive Statements 1100 Sinus rhythm 2320 Nonspecific intraventricular conduction delay [address] elevation [address] & Twave abnormality 7102 Moderate right axis deviation 0102 ARTIFACT PRESENT 9130 borderline ECG No previous ECG available for comparison Electronically Signed On 04-14-2023 7:25:24 EDT by ANKUSH CARROLL
[2023-04-13] MEDS: ONDANSETRON PF 4 MG/2 ML VIAL IV (06:21)
[2023-04-13] MEDS: HALOPERIDOL LACTATE 5 MG/ML VIAL IM (06:21)
[2023-04-13] MEDS: MAGNESIUM CITRATE 296 ML SOLUTION PO (07:49)
[2023-04-13] MEDS: BISACODYL 5 MG TABLET 10 MG PO (07:49)
--- NOTE | 2023-04-13 08:04 | ED.ABDPAIN1 ---
HPI - Abdominal Pain General Chief Complaint: Abdominal Pain Stated Complaint: ab pain Time Seen by Provider: 04/13/23 02:48 Source: patient Mode of arrival: ambulance Limitations: no limitations History of Present Illness HPI narrative: 32-year-old male presented to the emergency department and was initially seen by Dr. Aguillon. Please see her full history and physical. Related Data Home Medications Medication Instructions Recorded Confirmed amitriptyline 50 mg tablet 50 mg PO .qhs 03/13/23 03/13/23 Previous Rx's Medication Instructions Recorded lactulose 10 gram/15 mL (15 mL) 20 g (30 mL) PO DAILY PRN 04/12/23 oral solution constipation 5 days #150 mL Allergies Allergy/AdvReac Type Severity Reaction Status Date / Time No Known Drug Intolerances AdvReac Intermediate Verified 03/13/23 07:37 PFSH PFSH Social History Smoking status: Current every day smoker Exam Constitutional Vital Signs, click to edit/add: Last Vital Signs Temp 99.4 F 04/13/23 02:24 Pulse 92 H 04/13/23 02:24 Resp 18 04/13/23 02:24 BP 130/70 04/13/23 02:24 Pulse Ox 99 04/13/23 02:24 O2 Del Method Room Air 04/13/23 02:24 Course Vital Signs Vital signs: Vital Signs Temperature 99.4 F 04/13/23 02:24 Pulse Rate 92 H 04/13/23 02:24 Respiratory Rate 18 04/13/23 02:24 Blood Pressure 130/70 04/13/23 02:24 Pulse Oximetry 99 04/13/23 02:24 Oxygen Delivery Method Room Air 04/13/23 02:24 Temperature 99.4 F 04/13/23 02:24 Pulse Rate 92 H 04/13/23 02:24 Respiratory Rate 18 04/13/23 02:24 Blood Pressure 130/70 04/13/23 02:24 Pulse Oximetry 99 04/13/23 02:24 Oxygen Delivery Method Room Air 04/13/23 02:24 MDM - Abdominal Pain MDM Narrative Medical decision making narrative: CAT scan shows constipation and no other acute findings. The rest of his workup is negative. Initial plan was to discharge him home but the patient states that he can't go home side spoken to Dr. Lares and the patient will be admitted for observation. Differential Diagnosis Differential diagnosis: Likely abdominal pain, constipation, diverticulitis, gastroenteritis, pancreatitis and small bowel obstruction Lab Data Attestation: I reviewed the patient's lab results. Labs: Lab Results 04/13/23 Range/Units 03:00 Sodium 137 (136-145) mmol/L Potassium 3.7 (3.5-5.1) mmol/L Chloride 103 (98-107) mmol/L Carbon Dioxide 27.3 (21.0-32.0) mmol/L Anion Gap 10.4 BUN 18.0 (7.0-18.0) mg/dL Creatinine 0.85 (0.70-1.30) mg/dL Est GFR ( Amer) >60 (>=60) Est GFR (Non-Af Amer) >60 (>=60) BUN/Creatinine Ratio 21.2 Glucose 131 H (74-106) mg/dL Lactate 0.8 (0.4-2.0) mmol/L Calcium 9.6 (8.5-10.1) mg/dL Total Bilirubin 0.5 (0.2-1.0) mg/dL AST 18 (15-37) U/L ALT 28 (16-63) U/L Alkaline Phosphatase 85 (46-116) U/L Total Protein 7.6 (6.4-8.2) g/dL Albumin 4.2 (3.4-5.0) g/dL Globulin 3.4 g/dL Albumin/Globulin Ratio 1.[address] scan - abdomen: Radiologist's impression: Procedure: CT angio abdomen pelvis EXAM: CT angio abdomen pelvis HISTORY: Abdominal pain for 4 days; 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 COMPARISON: CT abdomen/pelvis dated 04/12/2023, CTA abdomen/pelvis dated 08/12/[address] abdomen/pelvis dated 08/11/2022. TECHNIQUE: Routine CTA abdomen/pelvis with intravenous contrast. FINDINGS: The abdominal aorta is unremarkable. There is no aneurysm or dissection. The celiac trunk, common hepatic artery, left gastric artery and splenic artery are unremarkable. The aortomesenteric angle is 50 degrees which falls within the realm of normal (normal range 28 to 65 degrees). The aortomesenteric distance is diminished measuring 0.6 cm (normal range 1.0 to 3.4 cm). There is no distention/dilatation of the first and second portions of the duodenum. The renal arteries are unremarkable with a small accessory renal artery bilaterally. The DOLORES is unremarkable. The iliac and common femoral arteries are unremarkable. The IVC is unremarkable. Stable 0.3 cm noncalcified pleural-based nodule lateral right lower chest (series 4 image 20). The liver is unremarkable. There is vicarious excretion of contrast within the gallbladder. The biliary tree is unremarkable. The pancreas and spleen are unremarkable. The bilateral adrenal glands and bilateral kidneys are unremarkable. Nonobstructive bowel gas pattern. There is a moderately large amount of stool within the ascending, transverse and proximal descending colon. The colon, appendix, distal esophagus, stomach and small bowel are unremarkable. As previously indicated there is no distention or dilatation of the duodenum. There is no free air, free fluid or inflammatory reaction. There are no pathologically enlarged lymph nodes within the abdomen/pelvis. The unopacified urinary bladder is unremarkable. The prostate gland is unremarkable. Small fibrocyst proximal femur bilaterally. IMPRESSION: The aortomesenteric distance is diminished measuring 0.6 cm however the aortomesenteric angle is normal and there is no distention/dilatation of the duodenum. Correlate with clinical findings to further assess for SMA syndrome. Nonobstructive bowel gas pattern with a moderately large amount of stool within the ascending, transverse and proximal descending colon. There is no free air, free fluid or inflammatory reaction. Vicarious excretion of contrast within the gallbladder. Electronically authenticated by: SAVANNAH STONE Date: 04/13/2023 05:44 Discharge Plan Discharge Chief Complaint: Abdominal Pain Clinical Impression: Cyclic vomiting syndrome, Constipation Patient Disposition: Admitted as Observation Time of Disposition Decision: 07:40 Condition: Good Mode of Transportation: Private Vehicle Prescriptions / Home Meds: No Action amitriptyline 50 mg tablet 50 mg PO .qhs lactulose 10 gram/15 mL (15 mL) solution 20 g PO DAILY PRN (Reason: constipation) 5 Days Qty: 150 0RF Instructions: Constipation (ED) Stand Alone Forms: Portal Instructions Referrals: Kai Lares MD [Primary Care Provider] - 1 week
--- NOTE | 2023-04-13 08:26 | PM.HP ---
H&P: HPI History of Present Illness Chief complaint: ab pain, constipation, cyclic vomiting Narrative: Patient seen and evaluated and treated in the emergency room on 2 occasions. Increasing nausea vomiting. He does have a history of superior mesenteric artery syndrome. CTA and at of abdomen did show short segment but no change in angle. Patient also tested for marijuana so likely superior mesenteric artery syndrome on top of cyclic vomiting syndrome. Patient will be admitted for work-up and treatment of same Review of Systems ROS Constitutional Denies: fever Eyes Denies: change in vision Ears, nose, mouth, and throat Denies: throat pain Cardiovascular Denies: chest pain Respiratory Denies: shortness of breath Gastrointestinal Reports: abdominal pain, nausea and vomiting PFSH [facility] Social History (Updated 04/13/23 @ 09:13 by Dariela Small) Within the past year, how often did you have a drink containing alcohol: never Score interpretation: A score less than 4 is consistent with normal alcohol consumption. Smoking status: Current every day smoker Non-prescribed substance use: cannabis (any form) Previous occupational history: [employer] Highest level of school completed/degree received: 10th grade Little interest or pleasure in doing things: not at all Feeling down, depressed, or hopeless: not at all Feel stressed/tense/nervous/anxious/difficulty sleeping: not at all Gender Identity: male Meds Home Medications and Allergies Home Medications Medication Instructions Recorded Confirmed Type amitriptyline 50 mg tablet 50 mg PO BEDTIME 03/13/23 04/13/23 History Allergies Allergy/AdvReac Type Severity Reaction Status Date / Time No Known Drug Intolerances AdvReac Intermediate Verified 03/13/23 07:37 Exam Constitutional Vital Signs, click to edit/add: Last Vital Signs Temp 99.4 F 04/13/23 02:24 Pulse 92 H 04/13/23 02:24 Resp 18 04/13/23 02:24 BP 130/70 04/13/23 02:24 Pulse Ox 99 04/13/23 02:24 O2 Del Method Room Air 04/13/23 02:24 Documenting provider has reviewed patient's vital signs: yes Common normals: apparent distress Exam limitations: no altered mental status General appearance: not cooperative HENKY Common normals: normocephalic Chest Common normals: inspection of chest normal Respiratory Common normals: normal respiratory effort Cardio Common normals: regular rate, regular rhythm and no murmurs Results Labs Labs: BMP 04/13/23 03:00 Sodium 137 Potassium 3.7 Chloride 103 Carbon Dioxide 27.3 BUN 18.0 Creatinine 0.85 Glucose 131 H Calcium 9.6 Liver Function 04/13/23 Range/Units 03:00 Total Bilirubin 0.5 (0.2-1.0) mg/dL AST 18 (15-37) U/L ALT 28 (16-63) U/L Alkaline Phosphatase 85 (46-116) U/L Albumin 4.2 (3.4-5.0) g/dL Assessment and Plan Assessment and Plan (1) Abdominal pain: Qualifiers: Abdominal location: generalized Qualified Code(s): R10.84 - Generalized abdominal pain (2) Constipation: Qualifiers: Constipation type: unspecified constipation type Qualified Code(s): K59.00 - Constipation, unspecified (3) Cyclic vomiting syndrome: (4) Superior mesenteric artery syndrome: Plan Tachycardia, low-grade fever, leukocytosis, positive likely secondary to cyclic vomiting syndrome, possible exacerbation of superior mesenteric artery syndrome although CT scan did not show anything significant. Just some mild changes that would be consistent with superior mesenteric artery syndrome but no ischemia. With leukocytosis and low-grade fever we will start patient on IV antibiotics, start patient on routine medications for cyclic vomiting syndrome. Fluid bolus. If improved tomorrow possible discharge.
[2023-04-13 08:30] LABS: Basophils Percent Auto 0.3 % (0.2-2.0); Hematocrit 38.9 % (42.0-54.0); Hemoglobin 13.2 g/dL (14.0-18.0); Immature Granulocytes Abs Auto 0.04 10^3/uL (0.00-0.03); Immature Granulocytes Pct Auto 0.3 % (0.0-0.5); Lymphocytes Absolute Auto 1.5 10^3/uL (1.2-3.8); Mean Corpuscular HGB Conc 33.9 g/dL (29.9-35.2); Mean Corpuscular Hemoglobin 31.1 pg (25.9-34.0); Mean Corpuscular Volume 91.5 fL (80.0-94.0); Mean Platelet Volume 10.6 fL (9.5-13.5); Monocytes Absolute Auto 0.8 10^3/uL (0.3-0.8); Monocytes Percent Auto 5.4 % (1.7-12.0); Neutrophils Absolute Auto 11.6 10^3/uL (1.4-6.5); Platelet Count 273 10^3/uL (150-450); Red Blood Count 4.25 10^6/uL (4.70-6.10); Red Cell Distribution Width 13.6 % (11.0-15.0)
[2023-04-13 08:49] VITALS: BP 137/70; PULSE 69; RESP 20; TEMP 37.3; O2SAT 95; BMI 25.6
--- NOTE | 2023-04-13 08:49 | PC.NURSE ---
pt instructed not to get in shower so can be admitted. Pt does go ahead and get in shower. Nurse opens bathroom door slightly and asks pt to please stop shower and get in gown. Pt verbalizes OK but continues to shower.
[2023-04-13 08:51] LABS: Amylase 63 U/L (25-115)
[2023-04-13] MEDS: PANTOPRAZOLE SODIUM 40 MG VIAL IV (09:44)
[2023-04-13] MEDS: METOCLOPRAMIDE HCL 10 MG/2 ML VIAL IVP ×3 (09:44→21:06)
[2023-04-13] MEDS: 0.9 % SODIUM CHLORIDE 1,000 ML 1000 ML IV (09:44)
[2023-04-13] MEDS: KETOROLAC TROMETHAMINE 30 MG/ML VIAL IVP (09:44)
[2023-04-13] MEDS: DIPHENHYDRAMINE HCL 50 MG/ML (1ML) VIAL 25 MG IV ×3 (09:45→21:05)
[2023-04-13] MEDS: HALOPERIDOL LACTATE 5 MG/ML VIAL 1 MG IV ×4 (10:09→21:06)
[2023-04-13] MEDS: 0.9 % SODIUM CHLORIDE 1,000 ML 999 ML IV (10:46)
[2023-04-13] MEDS: LACTATED RINGER'S SOLUTION 1,000 ML 100 ML IV ×2 (11:43→22:17)
[2023-04-13] MEDS: HYOSCYAMINE SULFATE 0.125 MG TAB.SUBL 0.25 MG SL (11:43)
[2023-04-13] MEDS: AMPICILLIN SODIUM/SULBACTAM NA 1.5 GM in 0.9 % SODIUM CHLORIDE 50 ML IV ×3 (11:43→23:03)
[2023-04-13] MEDS: LACTULOSE 10 GM/15 ML (237ML) SOLUTION 30 GM PO ×2 (13:23→21:06)
[2023-04-13 13:30] VITALS: BP 147/74; PULSE 66; RESP 20; TEMP 36.3; O2SAT 97
--- NOTE | 2023-04-13 14:04 | SWNOTE1 ---
SW met with pt to discuss dc needs. Pt was positive for THC on admission. SW spoke with him in regards to THC use. Pt was able to answer questions, was somewhat lethargic. Pt admits to marijuana use. He does not have his medical marijuana card. Pt smokes marijuana occassionally. SW asked what he uses for, pain? socializing? Pt just closed his eyes and did not really answer that question. SW then asked him if he has ever been to any kind of counseling/rehab before? He stated no. SW asked if he interested in any kind of counseling/rehab? Pt stated no, pt then fell back asleep. At this time pt denies any needs and does not want any resources.
[2023-04-13 19:51] VITALS: O2SAT 96
[2023-04-13] MEDS: AMITRIPTYLINE HCL 50 MG TABLET PO (21:05)
[2023-04-13 21:06] VITALS: BP 134/75
[2023-04-13] MEDS: CLONIDINE HCL 0.1 MG TABLET PO (21:06)
[2023-04-13 21:07] VITALS: BP 134/75; PULSE 97; RESP 18; TEMP 37.3; O2SAT 94
[2023-04-14] MEDS: HALOPERIDOL LACTATE 5 MG/ML VIAL 1 MG IV ×2 (02:13→05:50)
[2023-04-14] MEDS: METOCLOPRAMIDE HCL 10 MG/2 ML VIAL IVP ×2 (02:13→08:10)
[2023-04-14] MEDS: DIPHENHYDRAMINE HCL 50 MG/ML (1ML) VIAL 25 MG IV ×2 (02:13→08:09)
[2023-04-14 04:11] VITALS: O2SAT 95
[2023-04-14 05:12] LABS: Basophils Percent Auto 0.3 % (0.2-2.0); Hematocrit 33.2 % (42.0-54.0); Hemoglobin 11.1 g/dL (14.0-18.0); Immature Granulocytes Abs Auto 0.02 10^3/uL (0.00-0.03); Immature Granulocytes Pct Auto 0.2 % (0.0-0.5); Lymphocytes Absolute Auto 1.5 10^3/uL (1.2-3.8); Lymphocytes Percent Auto 15.1 % (20.5-60.0); Mean Corpuscular HGB Conc 33.4 g/dL (29.9-35.2); Mean Corpuscular Hemoglobin 30.7 pg (25.9-34.0); Monocytes Absolute Auto 0.9 10^3/uL (0.3-0.8); Monocytes Percent Auto 9.1 % (1.7-12.0); Neutrophils Absolute Auto 7.5 10^3/uL (1.4-6.5); Neutrophils Percent Auto 75.3 % (43.0-75.0); Platelet Count 192 10^3/uL (150-450); Red Blood Count 3.61 10^6/uL (4.70-6.10); Red Cell Distribution Width 13.6 % (11.0-15.0); White Blood Count 9.9 10^3/uL (4.0-11.0)
[2023-04-14 05:17] VITALS: BP 113/64; PULSE 86; RESP 18; TEMP 37; O2SAT 93
[2023-04-14 05:34] LABS: Alanine Aminotransferase 29 U/L (16-63); Albumin Globulin Ratio 1.1; Albumin Level 3.2 g/dL (3.4-5.0); Alkaline Phosphatase 62 U/L (46-116); Anion Gap 11.3; Aspartate Amino Transferase 21 U/L (15-37); BUN Creatinine Ratio 14.7; Bilirubin Total 0.4 mg/dL (0.2-1.0); Calcium 7.8 mg/dL (8.5-10.1); Carbon Dioxide 24.5 mmol/L (21.0-32.0); Chloride 107 mmol/L (98-107); Estimated GFR (African America >60 (>=60); Estimated GFR (Non-African Ame >60 (>=60); Globulin 2.8 g/dL; Glucose 119 mg/dL (74-106); Potassium 3.8 mmol/L (3.5-5.1); Sodium 139 mmol/L (136-145)
[2023-04-14] MEDS: LACTULOSE 10 GM/15 ML (237ML) SOLUTION 30 GM PO (05:49)
[2023-04-14] MEDS: AMPICILLIN SODIUM/SULBACTAM NA 1.5 GM in 0.9 % SODIUM CHLORIDE 50 ML IV (05:50)
[2023-04-14] MEDS: LACTATED RINGER'S SOLUTION 1,000 ML 100 ML IV (08:09)
[2023-04-14 08:10] VITALS: BP 133/77
[2023-04-14] MEDS: CLONIDINE HCL 0.1 MG TABLET PO (08:10)
--- NOTE | 2023-04-14 08:20 | P.PN_ITS ---
Progress Note: Subjective Subjective Interval history: Pain is down from 100 down now to 6. No further emesis so far last night or this morning. Exam Constitutional Vital Signs, click to edit/add: Last Vital Signs Temp 98.6 F 04/14/23 05:17 Pulse 86 04/14/23 05:17 Resp 18 04/14/23 05:17 BP 133/77 04/14/23 08:10 Pulse Ox 93 L 04/14/23 05:17 O2 Del Method Room Air 04/14/23 05:17 Documenting provider has reviewed patient's vital signs: yes Common normals: apparent distress Exam limitations: no altered mental status General appearance: not cooperative HENAZ Common normals: normocephalic Chest Common normals: inspection of chest normal Respiratory Common normals: normal respiratory effort Cardio Common normals: regular rate, regular rhythm and no murmurs GI Common normals: soft to palpation Palpation: tender (Improved from previous day) and guarding Progress Note: Objective Labs Labs: Short CBC 04/13/23 04/14/23 Range/Units 03:00 04:35 WBC 14.0 H 9.9 (4.0-11.0) 10^3/uL Hgb 13.2 L 11.1 L (14.0-18.0) g/dL Hct 38.9 L 33.2 L (42.0-54.0) % Plt Count 273 192 (150-450) 10^3/uL BMP 04/14/23 04:35 Sodium 139 Potassium 3.8 Chloride 107 Carbon Dioxide 24.5 BUN 10.0 Creatinine 0.68 L Glucose 119 H Calcium 7.8 L Liver Function 04/14/23 Range/Units 04:35 Total Bilirubin 0.4 (0.2-1.0) mg/dL AST 21 (15-37) U/L ALT 29 (16-63) U/L Alkaline Phosphatase 62 (46-116) U/L Albumin 3.2 L (3.4-5.0) g/dL Progress Note: A&P Assessment and Plan (1) Abdominal pain: Qualifiers: Abdominal location: generalized Qualified Code(s): R10.84 - Generalized abdominal pain (2) Constipation: Qualifiers: Constipation type: unspecified constipation type Qualified Code(s): K59.00 - Constipation, unspecified (3) Cyclic vomiting syndrome: (4) Superior mesenteric artery syndrome: Plan Tachycardia, low-grade fever, leukocytosis, secondary to cyclic vomiting syndrome, possible exacerbation of superior mesenteric artery syndrome although CT scan did not show anything significant. Just some mild changes that would be consistent with superior mesenteric artery syndrome but no ischemia. Patient overall improved. Maintain current antibiotics although will not discharge to home if he is stable later today on antibiotics. He is able to tolerate breakfast or breakfast and lunch he can be discharged home in improving condition. Medications see list. Follow-up in the office as needed. 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 When heme maintain patient as observation status. If unable to be discharged later today secondary to all of the above, will change patient to inpatient status
[2023-04-14 09:45] VITALS: O2SAT 93
--- NOTE | 2023-04-17 12:09 | CM.DCFOLLOWU ---
Called the number [phone], dee answered phone, I asked, is this Tim, dee states It is . I state This is Hoda as social work case manager calling from [facility] to see how you were doing since you were discharged from the hospital? Dee states I don't believe I was ever in your hospital . I confirmed this was Tim and phone number was [phone], person on other end confirmed. I said, ok sorry and ended the call without asking any specific questions.
== END 2023-04-14 11:38 | disposition home or self-care (01) ==
LOC: ER 08:06 → MS 08:34
PROVIDERS: Emergency Medicine; Admitting Provider Family Medicine; Emergency Provider Emergency Medicine; PCP Family Medicine; Visit Provider Family Medicine
DX: R11.15 Cyclical vomiting syndrome unrelated to migraine (principal); K55.1 Chronic vascular disorders of intestine; K59.00 Constipation, unspecified; F17.210 Nicotine dependence, cigarettes, uncomplicated; F12.90 Cannabis use, unspecified, uncomplicated; Z79.899 Other long term (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 therapy; R10.84 Generalized abdominal pain; R00.0 Tachycardia, unspecified; R50.9 Fever, unspecified; D72.829 Elevated white blood cell count, unspecified; E83.51 Hypocalcemia; E44.1 Mild protein-calorie malnutrition; D64.9 Anemia, unspecified; Z68.25 Body mass index [BMI] 25.0-25.9, adult
CPT/HCPCS: 36415; 74174; 80053; 82150; 83605; 83690; 85025; 93005; 94761; 96361; 96365; 96366; 96372; 96375; 96376; 99285; G0378; Q9967

== ENCOUNTER 2023-04-16 03:10 | Emergency (ER) | payer OTHER, SELFPAY ==
[2023-04-16 03:13] VITALS: BP 124/86; PULSE 99; RESP 16; TEMP 37; O2SAT 93; BMI 22.6
--- NOTE | 2023-04-16 03:21 | XR_ITS ---
The [address] [address] Patient Name: ROSALINE WOODSON MRN: [id number] date: 1990 Sex: M Assigned Patient Location: ED.MAIN Current Patient Location: ED.MAIN Accession/Order Number: [id number] Exam Date: 04/16/2023 03:35 Report Date: 04/16/2023 04:40 At the request of: LUCIA POST Procedure: XR abdomen 1V EXAMINATION: XR abdomen 1V HISTORY: possible constipation COMPARISON: XR abdomen with PA chest 10/13/2022 FINDINGS: BOWEL GAS PATTERN: No abnormal dilation or deviation. Moderate amount of stool throughout colon. CALCIFICATIONS: None significant. OTHER: Negative. No abnormal gaseous collections. XR/XR abdomen 1V IMPRESSION: 1. Moderate stool burden. 2. No bowel obstruction, ileus, or suspicious findings. Electronically authenticated by: MISAEL DENNY Date: 04/16/2023 04:40
--- NOTE | 2023-04-16 03:21 | ED_ITS ---
HPI - Abdominal Pain General Chief Complaint: Abdominal Pain Stated Complaint: Abdominal Pain Time Seen by Provider: 04/16/23 03:11 Source: patient Mode of arrival: ambulance Limitations: no limitations History of Present Illness HPI narrative: 32-year-old male presents for abdominal pain. His whole abdomen hurts and he thinks it might be due to constipation. He was admitted here days ago after several emergency department visits and was kept overnight and released the next day. He states he really hasn't had a bowel movement but he's been taking lactulose. No trauma or fever. Related Data Home Medications Medication Instructions Recorded Confirmed amitriptyline 50 mg tablet 50 mg PO BEDTIME 03/13/23 04/16/23 Previous Rx's Medication Instructions Recorded lactulose 10 gram/15 mL oral 30 g (45 mL) PO BID 10 days #900 mL 04/14/23 solution (Constulose) Allergies Allergy/AdvReac Type Severity Reaction Status Date / Time No Known Drug Intolerances AdvReac Intermediate Verified 04/16/23 03:17 Review of Systems ROS Narrative A ten point review of systems is negative except as noted above. [facility] Medical History (Updated 04/16/23 @ 04:45 by Ernesto Mathias MD) Abdominal pain ?R10.9 - Unspecified abdominal pain (ICD-10) Constipation ?K59.00 - Constipation, unspecified (ICD-10) Constipation ?K59.00 - Constipation, unspecified (ICD-10) Cyclic vomiting syndrome ?R11.15 - Cyclical vomiting syndrome unrelated to migraine (ICD-10) Superior mesenteric artery syndrome ?K55.1 - Chronic vascular disorders of intestine (ICD-10) Social History (Updated 04/13/23 @ 09:13 by Dariela Small) Within the past year, how often did you have a drink containing alcohol: never Score interpretation: A score less than 4 is consistent with normal alcohol consumption. Smoking status: Current every day smoker Non-prescribed substance use: cannabis (any form) Previous occupational history: [employer] Highest level of school completed/degree received: 10th grade Little interest or pleasure in doing things: not at all Feeling down, depressed, or hopeless: not at all Feel stressed/tense/nervous/anxious/difficulty sleeping: not at all Gender Identity: male Exam Narrative Exam Narrative: Nurses note and vital signs reviewed and patient is not hypoxic. General: The patient appears well and in no apparent distress. Patient is resting comfortably on cart. Skin: Warm, dry, no pallor noted. There is no rash noted. Head: Normocephalic, atraumatic Eye: Normal conjunctiva, no drainage Ears, Nose, Mouth, and Throat: oral mucosa is moist. Nares patent. Cardiovascular: Regular Rate and Rhythm Respiratory: Patient is in no distress, no accessory muscle use, lungs are clear to auscultation, no wheezing, rales or rhonchi Back: non-tender GI: Normal bowel sounds, mild tenderness to palpation with no distention or mass. Musculoskeletal: The patient has no evidence of calf tenderness, no pitting edema, symmetrical pulses noted bilaterally Neurological: A&O, normal speech Psychiatric: Cooperative Constitutional Vital Signs, click to edit/add: Last Vital Signs Temp 98.6 F 04/16/23 03:13 Pulse 99 H 04/16/23 03:13 Resp 16 04/16/23 03:13 BP 124/86 04/16/23 03:13 Pulse Ox 93 L 04/16/23 03:13 O2 Del Method Room Air 04/16/23 03:13 Course Vital Signs Vital signs: Vital Signs Temperature 98.6 F 04/16/23 03:13 Pulse Rate 99 H 04/16/23 03:13 Respiratory Rate 16 04/16/23 03:13 Blood Pressure 124/86 04/16/23 03:13 Pulse Oximetry 93 L 04/16/23 03:13 Oxygen Delivery Method Room Air 04/16/23 03:13 Temperature 98.6 F 04/16/23 03:13 Pulse Rate 99 H 04/16/23 03:13 Respiratory Rate 16 04/16/23 03:13 Blood Pressure 124/86 04/16/23 03:13 Pulse Oximetry 93 L 04/16/23 03:13 Oxygen Delivery Method Room Air 04/16/23 03:13 MDM - Abdominal Pain MDM Narrative Medical decision making narrative: bloodwork is normal including his WBC and lactic acid. X-ray continues to show constipation. He was given Dulcolax here and was encouraged to drink the bottle of magnesium citrate that he has a home. There is no indication for admission the hospital. Treatment diagnosis and follow-up were discussed with the patient. Differential Diagnosis Differential diagnosis: Likely abdominal pain, constipation, diverticulitis, gastroenteritis and small bowel obstruction Medical Records Attestation: I reviewed the patient's medical records. Lab Data Attestation: I reviewed the patient's lab results. Labs: Lab Results 04/16/23 Range/Units 03:32 WBC 11.4 H (4.0-11.0) 10^3/uL RBC 4.18 L (4.70-6.10) 10^6/uL Hgb 13.1 L (14.0-18.0) g/dL Hct 38.0 L (42.0-54.0) % MCV 90.9 (80.0-94.0) fL MCH 31.3 (25.9-34.0) pg MCHC 34.5 (29.9-35.2) g/dL RDW 13.4 (11.0-15.0) % Plt Count 260 (150-450) 10^3/uL MPV 9.6 (9.5-13.5) fL Neut % (Auto) 82.3 H (43.0-75.0) % Lymph % (Auto) 12.2 L (20.5-60.0) % Bibb % (Auto) 4.5 (1.7-12.0) % Eos % (Auto) 0.2 L (0.9-7.0) % Baso % (Auto) 0.4 (0.2-2.0) % Neut # (Auto) 9.4 H (1.4-6.5) 10^3/uL Lymph # (Auto) 1.4 (1.2-3.8) 10^3/uL Bibb # (Auto) 0.5 (0.3-0.8) 10^3/uL Eos # (Auto) 0.0 (0.0-0.7) 10^3/uL Baso # (Auto) 0.1 (0.0-0.1) 10^3/uL Abs Immat Gran (auto) 0.05 H (0.00-0.03) 10^3/uL Imm/Tot Granulo (auto) 0.4 (0.0-0.5) % Sodium 138 (136-145) mmol/L Potassium 4.1 (3.5-5.1) mmol/L Chloride 102 (98-107) mmol/L Carbon Dioxide 27.5 (21.0-32.0) mmol/L Anion Gap 12.6 BUN 9.0 (7.0-18.0) mg/dL Creatinine 0.71 (0.70-1.30) mg/dL Est GFR ( Amer) >60 (>=60) Est GFR (Non-Af Amer) >60 (>=60) BUN/Creatinine Ratio 12.7 Glucose 118 H (74-106) mg/dL Lactate 0.6 (0.4-2.0) mmol/L Calcium 8.6 (8.5-10.1) mg/dL Imaging Data Abdominal x-ray: Radiologist's impression: Procedure: XR abdomen 1V EXAMINATION: XR abdomen 1V HISTORY: possible constipation COMPARISON: XR abdomen with PA chest 10/13/2022 FINDINGS: BOWEL GAS PATTERN: No abnormal dilation or deviation. Moderate amount of stool throughout colon. CALCIFICATIONS: None significant. OTHER: Negative. No abnormal gaseous collections. IMPRESSION: 1. Moderate stool burden. 2. No bowel obstruction, ileus, or suspicious findings. Electronically authenticated by: MISAEL DENNY Date: 04/16/2023 04:40 Discharge Plan Discharge Chief Complaint: Abdominal Pain Clinical Impression: Constipation Patient Disposition: Home, Self-Care Time of Disposition Decision: 04:45 Condition: Good Mode of Transportation: Private Vehicle Prescriptions / Home Meds: No Action amitriptyline 50 mg tablet 50 mg PO BEDTIME lactulose [Constulose] 10 gram/15 mL Solution 30 g PO BID 10 Days Qty: 900 0RF Instructions: Constipation (ED), High Fiber Diet (ED) Additional Instructions: drink the bottle of magnesium citrate that you have at home. Stand Alone Forms: Portal Instructions Referrals: Kai Laers MD [Primary Care Provider] - 1 week
[2023-04-16 04:00] LABS: Basophils Absolute Auto 0.1 10^3/uL (0.0-0.1); Basophils Percent Auto 0.4 % (0.2-2.0); Eosinophils Percent Auto 0.2 % (0.9-7.0); Hemoglobin 13.1 g/dL (14.0-18.0); Immature Granulocytes Abs Auto 0.05 10^3/uL (0.00-0.03); Immature Granulocytes Pct Auto 0.4 % (0.0-0.5); Lymphocytes Absolute Auto 1.4 10^3/uL (1.2-3.8); Lymphocytes Percent Auto 12.2 % (20.5-60.0); Mean Corpuscular HGB Conc 34.5 g/dL (29.9-35.2); Mean Corpuscular Hemoglobin 31.3 pg (25.9-34.0); Mean Corpuscular Volume 90.9 fL (80.0-94.0); Mean Platelet Volume 9.6 fL (9.5-13.5); Monocytes Absolute Auto 0.5 10^3/uL (0.3-0.8); Monocytes Percent Auto 4.5 % (1.7-12.0); Neutrophils Absolute Auto 9.4 10^3/uL (1.4-6.5); Neutrophils Percent Auto 82.3 % (43.0-75.0); Platelet Count 260 10^3/uL (150-450); Red Blood Count 4.18 10^6/uL (4.70-6.10); Red Cell Distribution Width 13.4 % (11.0-15.0); White Blood Count 11.4 10^3/uL (4.0-11.0)
[2023-04-16 04:03] LABS: Anion Gap 12.6; BUN Creatinine Ratio 12.7; Calcium 8.6 mg/dL (8.5-10.1); Carbon Dioxide 27.5 mmol/L (21.0-32.0); Chloride 102 mmol/L (98-107); Estimated GFR (African America >60 (>=60); Estimated GFR (Non-African Ame >60 (>=60); Glucose 118 mg/dL (74-106); Potassium 4.1 mmol/L (3.5-5.1); Sodium 138 mmol/L (136-145)
[2023-04-16] MEDS: KETOROLAC TROMETHAMINE 60 MG/2 ML VIAL IM (04:07)
[2023-04-16] MEDS: DICYCLOMINE HCL 20 MG/2 ML VIAL IM (04:07)
[2023-04-16 04:11] LABS: Lactate/Lactic Acid 0.6 mmol/L (0.4-2.0)
[2023-04-16] MEDS: BISACODYL 5 MG TABLET 10 MG PO (05:01)
== END 2023-04-16 05:12 | disposition home or self-care (01) ==
PROVIDERS: Emergency Provider Emergency Medicine; PCP Family Medicine
DX: K59.00 Constipation, unspecified (principal); K55.1 Chronic vascular disorders of intestine; F17.210 Nicotine dependence, cigarettes, uncomplicated; Z79.899 Other long term (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 therapy; F12.90 Cannabis use, unspecified, uncomplicated
CPT/HCPCS: 36415; 74018; 80048; 83605; 85025; 96372; 99285; J0500

== ENCOUNTER 2023-10-19 11:46 | Outpatient (OUT) | payer OTHER, SELFPAY ==
--- NOTE | 2023-10-19 11:53 | US_ITS ---
The [address] [address] Patient Name: ROSALINE WOODSON MRN: [id number] date: 1990 Sex: M Assigned Patient Location: RAD Current Patient Location: [facility] Accession/Order Number: [id number] Exam Date: 10/19/2023 11:55 Report Date: 10/19/2023 13:40 At the request of: TITUS HILARIO Procedure: US venous doppler LE LT EXAMINATION: US venous doppler LE LT HISTORY: calf pain, left COMPARISON: No relevant comparison available. FINDINGS: REGION: Left lower extremity THROMBI: None. COMPRESSIBILITY: Normal compressibility. FLOW: Normal waveform and antegrade flow between 5 and 20 cm/s. OTHER: None. US/US venous doppler LE LT IMPRESSION: 1. No deep vein thrombus within the left lower extremity. Electronically authenticated by: MISAEL DENNY Date: 10/19/2023 13:40
== END 2023-10-19 11:47 | disposition home or self-care (01) ==
LOC: RAD 11:48
PROVIDERS: PCP Nurse Practitioner Family; Visit Provider Nurse Practitioner Family
DX: M79.662 Pain in left lower leg (principal)
CPT/HCPCS: 93971

== ENCOUNTER 2023-11-24 00:35 | Observation (INO) | payer SELFPAY ==
[2023-11-24] VITALS (11 sets, daily range): BP systolic 119–169; BP diastolic 67–97; PULSE 42–96; TEMP 36.5–36.9; O2SAT 95–99; BMI 25.7; BMI 23.7
--- NOTE | 2023-11-24 00:42 | ECG_ITS ---
[facility] Test Date: 2023-11-24 Pat Name: ROSALINE WOODSON Department: Room: - Gender: Male [employer]: : 1990 Requested By: TITUS HILARIO Order Number: [id number] Reading MD: NASRA ROSAS Measurements Intervals [place] Rate: 76 P: 64 WA: 128 QRS: 87 QRSD: 98 T: 37 QT: 356 QTc: 387 Interpretive Statements 1100 Sinus rhythm 0102 ARTIFACT PRESENT 9110 normal ECG Compared to ECG 04/13/2023 05:54:49 ST (T wave) deviation no longer present Right-axis deviation no longer present Electronically Signed On 11-24-2023 6:48:03 EDT by NASRA ROSAS
--- NOTE | 2023-11-24 01:05 | ED_ITS ---
HPI - Abdominal Pain General Chief Complaint: Abdominal Pain Stated Complaint: ABD PAIN Time Seen by Provider: 11/24/23 00:45 Source: patient Mode of arrival: ambulance Limitations: no limitations History of Present Illness HPI narrative: patient states he has SMA syndrome. presents complaining of pain for a couple of days and has been vomiting several times tonight. No fever. No diarrhea Related Data Home Medications ?Medication ?Instructions ?Recorded ?Confirmed amitriptyline 50 mg tablet 50 mg PO BEDTIME 03/13/23 11/24/23 Previous Rx's ?Medication ?Instructions ?Recorded lactulose 10 gram/15 mL oral 30 g (45 mL) PO BID 10 days #900 mL 04/14/23 solution (Constulose) Allergies Allergy/AdvReac Type Severity Reaction Status Date / Time No Known Drug Intolerances AdvReac Intermediate Verified 11/24/23 00:37 Review of Systems ROS Status of ROS 10 or more systems reviewed and unremark able except as noted in history and below [facility] Medical History (Updated 11/24/23 @ 12:50 by Basia Kapadia NP) Cannabinoid hyperemesis syndrome ?R11.2 - Nausea with vomiting, unspecified (ICD-10) ?F12.90 - Cannabis use, unspecified, uncomplicated (ICD-10) Superior mesenteric artery syndrome ?K55.1 - Chronic vascular disorders of intestine (ICD-10) Cyclic vomiting syndrome ?R11.15 - Cyclical vomiting syndrome unrelated to migraine (ICD-10) Constipation ?K59.00 - Constipation, unspecified (ICD-10) Abdominal pain ?R10.9 - Unspecified abdominal pain (ICD-10) Social History (Updated 04/13/23 @ 09:13 by Dariela Small) Within the past year, how often did you have a drink containing alcohol: never Score interpretation: A score less than 4 is consistent with normal alcohol consumption. Smoking status: Current every day smoker Non-prescribed substance use: cannabis (any form) Previous occupational history: [employer] Highest level of school completed/degree received: 10th grade Little interest or pleasure in doing things: not at all Feeling down, depressed, or hopeless: not at all Feel stressed/tense/nervous/anxious/difficulty sleeping: not at all Gender Identity: male Exam Constitutional Vital Signs, click to edit/add: Last Vital Signs Temp 97.7 F 11/24/23 07:58 Pulse 57 L 05/24/24 11:56 Resp 18 11/24/23 07:58 BP 119/67 11/24/23 07:58 Pulse Ox 97 11/24/23 11:56 O2 Del Method Room Air 11/24/23 09:21 Common normals: average body habitus, oriented x3, healthy appearing, alert and well nourished General appearance: in distress (mild distress) HENMT Common normals: normocephalic and head/scalp atraumatic Eye Common normals: EOMs intact bilaterally and conjunctivae normal Respiratory Common normals: normal respiratory effort, no retractions, no use of accessory muscles and clear to auscultation bilaterally Cardio Common normals: regular rate, regular rhythm, S1 normal heart sound and S2 normal heart sound GI Other: gen. nonspecific tenderness Extremity Common normals: normal to inspection and full ROM Neuro Common normals: oriented x3, CN's II-XII intact bilaterally, moves all extremities and no focal motor deficits Course Vital Signs Vital signs: Vital Signs Temperature 97.8 F 11/24/23 00:37 Pulse Rate 73 11/24/23 00:37 Respiratory Rate 22 H 11/24/23 00:37 Blood Pressure 158/91 H 11/24/23 00:37 Pulse Oximetry 97 11/24/23 00:37 Oxygen Delivery Method Room Air 11/24/23 00:37 Temperature 97.7 F 11/24/23 07:58 Pulse Rate 57 L 11/24/23 11:56 Respiratory Rate 18 11/24/23 07:58 Blood Pressure 119/67 11/24/23 07:58 Pulse Oximetry 97 11/24/23 11:56 Oxygen Delivery Method Room Air 11/24/23 09:21 MDM - Abdominal Pain MDM Narrative Medical decision making narrative: patient presents complaining of abdominal pain and vomiting. Has history of cyclical vomiting from use of marijuana. States he has pain and vomiting from SMA. CT with findings supporting SMA syndrome. Patient continues to complain of pain. Discussed with the hospitalist and will admit to observation med surgery. High index of suspicion that his presentation is from cyclical vomiting given his past history of marijuana use. Lab Data Labs: Lab Results 11/24/23 Range/Units 01:09 WBC 11.8 H (4.0-11.0) 10^3/uL RBC 4.25 L (4.70-6.10) 10^6/uL Hgb 13.1 L (14.0-18.0) g/dL Hct 38.3 L (42.0-54.0) % MCV 90.1 (80.0-94.0) fL MCH 30.8 (25.9-34.0) pg MCHC 34.2 (29.9-35.2) g/dL RDW 13.1 (11.0-15.0) % Plt Count 262 (150-450) 10^3/uL MPV 10.1 (9.5-13.5) fL Neut % (Auto) 83.5 H (43.0-75.0) % Lymph % (Auto) 11.4 L (20.5-60.0) % [place] % (Auto) 3.9 (1.7-12.0) % Eos % (Auto) 0.4 L (0.9-7.0) % Baso % (Auto) 0.5 (0.2-2.0) % Neut # (Auto) 9.8 H (1.4-6.5) 10^3/uL Lymph # (Auto) 1.3 (1.2-3.8) 10^3/uL [place] # (Auto) 0.5 (0.3-0.8) 10^3/uL Eos # (Auto) 0.1 (0.0-0.7) 10^3/uL Baso # (Auto) 0.1 (0.0-0.1) 10^3/uL Abs Immat Gran (auto) 0.04 H (0.00-0.03) 10^3/uL Imm/Tot Granulo (auto) 0.3 (0.0-0.5) % Sodium 138 (136-145) mmol/L Potassium 3.6 (3.5-5.1) mmol/L Chloride 104 (98-107) mmol/L Carbon Dioxide 25.7 (21.0-32.0) mmol/L Anion Gap 11.9 BUN 13.0 (7.0-18.0) mg/dL Creatinine 0.96 (0.70-1.30) mg/dL Est GFR ( Amer) >60 (>=60) Est GFR (Non-Af Amer) >60 (>=60) BUN/Creatinine Ratio 13.5 Glucose 120 H (74-106) mg/dL Lactate 0.9 (0.4-2.0) mmol/L Calcium 9.0 (8.5-10.1) mg/dL Total Bilirubin 0.6 (0.2-1.0) mg/dL AST 19 (15-37) U/L ALT 35 (16-63) U/L Alkaline Phosphatase 99 (46-116) U/L Total Protein 7.1 (6.4-8.2) g/dL Albumin 4.0 (3.4-5.0) g/dL Globulin 3.1 g/dL Albumin/Globulin Ratio 1.3 Lipase 19.0 (16.0-77.0) U/L Imaging Data Abdominal x-ray: Radiologist's impression: ITS Impressions Abdomen/Pelvis CT 11/24/23 01:08 IMPRESSION: 1. Reduced aortomesenteric distance of 6 mm and aortomesenteric angle of 37 degrees (reference range 28-65 degree). The reduced aortomesenteric distance suggests SMA syndrome in the appropriate clinical presentation. Focal mild narrowing of the left proximal renal vein and the third portion duodenum without yosvany bowel obstruction. 2. Moderate amount of liquid stool and gas scattered throughout the colon. Correlate for any underlying diarrhea. 3. Mild sigmoid diverticula without pericolonic inflammatory stranding. Electronically authenticated by: ALEXX JOHNSON Date: 11/24/2023 03:02 Discharge Plan Discharge Chief Complaint: Abdominal Pain Clinical Impression: Abdominal pain, Vomiting Patient Disposition: Admitted as Observation Discharge Date/Time: 11/24/23 05:20
--- NOTE | 2023-11-24 01:08 | CT_ITS ---
The [address] [address] Patient Name: ROSALINE WOODSON MRN: [id number] date: 1990 Sex: M Assigned Patient Location: ER Current Patient Location: ER Accession/Order Number: [id number] Exam Date: 11/24/2023 01:30 Report Date: 11/24/2023 03:02 At the request of: ERVIN CHAO Procedure: CT abdomen pelvis w con EXAM: CT abdomen pelvis w con HISTORY: abdominal pain. Reports SMA syndrome history COMPARISON: CT abdomen pelvis 04/12/2023, CT angiogram abdomen pelvis 04/13/2023 TECHNIQUE: Multiple axial views CT abdomen pelvis performed after administration of 99 cc Omnipaque 300 IV contrast. Coronal sagittal reformats performed. FINDINGS: Visualized lung bases and cardiac apex are unremarkable. Mild hepatic steatosis. Gallbladder, pancreas, spleen, adrenal glands, kidneys, underdistended urinary bladder, and appendix are unremarkable. Prostate measures 3.7 cm transverse diameter. Moderate amount of liquid stool and gas scattered throughout the colon. Mild sigmoid diverticula without pericolonic inflammatory stranding. Minimal hiatal hernia. Stomach is underdistended. No perigastric extraluminal free fluid/free air. No large ascites or free air. Reduced aortomesenteric distance of 6 mm and aortomesenteric angle of 37 degrees (image 49 series 6). Focal mild narrowing of the left proximal renal vein and the third portion duodenum without yosvany bowel obstruction. Abdominal aorta and inferior vena cava are unremarkable. No acute bony abnormality. CT/CT abdomen pelvis w con IMPRESSION: 1. Reduced aortomesenteric distance of 6 mm and aortomesenteric angle of 37 degrees (reference range 28-65 degree). The reduced aortomesenteric distance suggests SMA syndrome in the appropriate clinical presentation. Focal mild narrowing of the left proximal renal vein and the third portion duodenum without yosvany bowel obstruction. 2. Moderate amount of liquid stool and gas scattered throughout the colon. Correlate for any underlying diarrhea. 3. Mild sigmoid diverticula without pericolonic inflammatory stranding. Electronically authenticated by: ALEXX JOHNSON Date: 11/24/2023 03:02
[2023-11-24 01:20] LABS: Basophils Absolute Auto 0.1 10^3/uL (0.0-0.1); Basophils Percent Auto 0.5 % (0.2-2.0); Eosinophils Absolute Auto 0.1 10^3/uL (0.0-0.7); Eosinophils Percent Auto 0.4 % (0.9-7.0); Hematocrit 38.3 % (42.0-54.0); Hemoglobin 13.1 g/dL (14.0-18.0); Immature Granulocytes Abs Auto 0.04 10^3/uL (0.00-0.03); Immature Granulocytes Pct Auto 0.3 % (0.0-0.5); Lymphocytes Absolute Auto 1.3 10^3/uL (1.2-3.8); Lymphocytes Percent Auto 11.4 % (20.5-60.0); Mean Corpuscular HGB Conc 34.2 g/dL (29.9-35.2); Mean Corpuscular Hemoglobin 30.8 pg (25.9-34.0); Mean Corpuscular Volume 90.1 fL (80.0-94.0); Mean Platelet Volume 10.1 fL (9.5-13.5); Monocytes Absolute Auto 0.5 10^3/uL (0.3-0.8); Monocytes Percent Auto 3.9 % (1.7-12.0); Neutrophils Absolute Auto 9.8 10^3/uL (1.4-6.5); Neutrophils Percent Auto 83.5 % (43.0-75.0); Platelet Count 262 10^3/uL (150-450); Red Blood Count 4.25 10^6/uL (4.70-6.10); Red Cell Distribution Width 13.1 % (11.0-15.0); White Blood Count 11.8 10^3/uL (4.0-11.0)
[2023-11-24 01:34] LABS: Alanine Aminotransferase 35 U/L (16-63); Albumin Globulin Ratio 1.3; Alkaline Phosphatase 99 U/L (46-116); Anion Gap 11.9; Aspartate Amino Transferase 19 U/L (15-37); BUN Creatinine Ratio 13.5; Bilirubin Total 0.6 mg/dL (0.2-1.0); Carbon Dioxide 25.7 mmol/L (21.0-32.0); Chloride 104 mmol/L (98-107); Estimated GFR (African America >60 (>=60); Estimated GFR (Non-African Ame >60 (>=60); Globulin 3.1 g/dL; Glucose 120 mg/dL (74-106); Potassium 3.6 mmol/L (3.5-5.1); Sodium 138 mmol/L (136-145); Total Protein 7.1 g/dL (6.4-8.2)
[2023-11-24 01:36] LABS: Lactate/Lactic Acid 0.9 mmol/L (0.4-2.0)
[2023-11-24] MEDS: 0.9 % SODIUM CHLORIDE 1,000 ML 999 ML IV (01:36)
[2023-11-24] MEDS: DIPHENHYDRAMINE HCL 50 MG/ML VIAL IV (01:38)
[2023-11-24] MEDS: METOCLOPRAMIDE HCL 10 MG/2 ML VIAL IVP ×2 (01:39→06:20)
[2023-11-24] MEDS: FENTANYL CITRATE/PF 100 MCG/2 ML VIAL 50 MCG IV (02:16)
--- NOTE | 2023-11-24 05:49 | PC.NURSE ---
Patient thrashing about bed stating he is in pain. Will not maintain eye contact and is reluctant to answer questions. Abrasions notice on bilateral shins. Questioned patient about them and he said I don't know does it matter
[2023-11-24] MEDS: 0.9 % SODIUM CHLORIDE 1,000 ML 125 ML IV (06:20)
[2023-11-24] MEDS: MORPHINE SULFATE 2 MG/ML SYRINGE IV ×2 (06:28→09:20)
--- NOTE | 2023-11-24 08:32 | CM.NOTE ---
Rounds made with Dr. Lares, pt c/o continued abdominal pain and nausea. Dr. Lares will change medications, no discharge today. Verified with pt that he is true self-pay, no insurance at this time.
[2023-11-24] MEDS: KETOROLAC TROMETHAMINE 30 MG/ML VIAL IVP (09:20)
--- NOTE | 2023-11-24 12:22 | P.HP_ITS ---
<Statement entered by Kai Lares MD - 11/29/23 06:46> This documentation has been reviewed and approved. This documentation has been reviewed and approved. Pt seen and examined at the bedside. No complaints Agree with input and finding s from nurse practitioner Disucsed need to avoid narcotics in SMA and [facility] HPI H&P: HPI History of Present Illness Chief complaint: ABD PAIN Narrative: 11/24/23 0905 This is a 32-year-old male patient with a past medical history significant for SMA syndrome and cannabis hyperemesis syndrome; who presented to the ED early this morning complaining of acute onset of abdominal pain and nausea and vomiting about 3 days ago. He presented to the ED for further evaluation as his symptoms were persistent. Workup in the ED revealed mild leukocytosis (11.8),, labs were otherwise unremarkable. CT of the abdomen and pelvis confirmed SMA syndrome with associated focal mild narrowing of the left proximal renal vein and the third portion of the duodenum without yosvany bowel obstruction. The patient was admitted in observation for symptom management of his abdominal pain and persistent nausea and vomiting. At the time of my exam the patient is resting in bed comfortably with his eyes closed and the covers pulled over his face. Once I began to speak with the patient he began to writhe on the bed in reported pain. He admits to improvement of his pain with frequent hot showers. He reports every other day cannabis use. He adamantly insists that his pain and nausea are due to his SMA syndrome rather than cannabis hyperemesis syndrome. He was advised to pursue complete cessation of cannabis products as they are likely contributing to his symptoms. We will attempt to control his pain with scheduled Toradol and capsaicin cream, with morphine IV push for breakthrough pain. ADDENDUM 0945: After discussing the patient's plan of care with Dr. Lares, attending physician, all narcotic pain medications will be removed from the patient's med regimen. We will give IVP Haldol for improvement of his nausea and pain. We will cancel narcotic pain medications from the MAR that were ordered on admission early this morning. IV Toradol, Capsaicin, Zofran and Reglan will be continued. ADDENDUM 1230: The patient was dissatisfied with the order to discontinue all narcotic pain med administration. He has signed out AGAINST MEDICAL ADVICE and is leaving the hospital. Opioid HPI Opioid Management Most Recent Opioid Data: Last Pain Scale 10 11/24/23 09:20 Last Pain Assessment 11/24/23 11:42 Last MAR Pain Assessment 11/24/23 11:08 Last ORT Total Score 4 11/24/23 05:47 Last ORT Risk Category Moderate Risk 11/24/23 05:47 Ur Phencyclidine Scrn Negative (NEGATIVE) 04/12/23 17:15 Review of Systems ROS Status of ROS 10 or more systems reviewed and unremark able except as noted in history and below PFSH PFS Medical History (Updated 11/24/23 @ 12:50 by Basia Kapadia NP) Cannabinoid hyperemesis syndrome ?R11.2 - Nausea with vomiting, unspecified (ICD-10) ?F12.90 - Cannabis use, unspecified, uncomplicated (ICD-10) Superior mesenteric artery syndrome ?K55.1 - Chronic vascular disorders of intestine (ICD-10) Cyclic vomiting syndrome ?R11.15 - Cyclical vomiting syndrome unrelated to migraine (ICD-10) Constipation ?K59.00 - Constipation, unspecified (ICD-10) Abdominal pain ?R10.9 - Unspecified abdominal pain (ICD-10) Social History (Updated 04/13/23 @ 09:13 by Dariela Small) Within the past year, how often did you have a drink containing alcohol: never Score interpretation: A score less than 4 is consistent with normal alcohol consumption. Smoking status: Current every day smoker Non-prescribed substance use: cannabis (any form) Previous occupational history: [employer] Highest level of school completed/degree received: 10th grade Little interest or pleasure in doing things: not at all Feeling down, depressed, or hopeless: not at all Feel stressed/tense/nervous/anxious/difficulty sleeping: not at all Gender Identity: male Meds Home Medications and Allergies Home Medications ?Medication ?Instructions ?Recorded ?Confirmed ?Type amitriptyline 50 mg tablet 50 mg PO BEDTIME 03/13/23 11/24/23 History lactulose 10 gram/15 mL oral 30 g (45 mL) PO BID 10 days #900 mL 04/14/23 04/16/23 Rx solution (Constulose) Allergies Allergy/AdvReac Type Severity Reaction Status Date / Time No Known Drug Intolerances AdvReac Intermediate Verified 11/24/23 00:37 Exam Constitutional Vital Signs, click to edit/add: Last Vital Signs Temp 97.7 F 11/24/23 07:58 Pulse 57 L 11/24/23 11:56 Resp 18 11/24/23 07:58 BP 119/67 11/24/23 07:58 Pulse Ox 97 11/24/23 11:56 O2 Del Method Room Air 11/24/23 09:21 Common normals: no apparent distress, oriented x3, alert and well nourished General appearance: cooperative Orientation/consciousness: Yes awake HENMT Common normals: normocephalic, head/scalp atraumatic, hearing grossly normal bilaterally, external nose normal and moist oral mucous membranes Eye Common normals: PERRL, EOMs intact bilaterally, conjunctivae normal and no scleral icterus Alignment: alignment normal Eyelid: eyelids normal Neck & C-Spine Common normals: full ROM, supple and no JVD Chest Common normals: inspection of chest normal Chest: symmetrical chest wall rise Respiratory Common normals: normal respiratory effort, no retractions, no use of accessory muscles and clear to auscultation bilaterally Effort & inspection: able to speak in complete sentences Auscultation: diminished lung sounds (BLL) Cardio Common normals: no JVD, regular rate, regular rhythm, S1 normal heart sound, S2 normal heart sound, no gallops, no clicks, no murmurs, no rub and peripheral pulses 2+ throughout GI Common normals: Normal to inspection, nondistended, normoactive bowel sounds present, soft to palpation, no hepatosplenomegaly, no masses and no bruits Palpation: tender (diffuse throughout); no guarding and not rigid Bladder/kidney exam: bladder normal to palpation Back & Pelvis Common normals: thoracic and lumbar spine normal to inspection Extremity Common normals: normal capillary refill and no pedal edema General: normal exam except as noted; no clubbing and no cyanosis Neuro Daiana Coma Scale: GCS not evaluated Common normals: CN's II-XII intact bilaterally, moves all extremities, no focal motor deficits and no sensory deficits noted Speech: speech normal Motor exam: strength 5/5 throughout Psych Common normals: mental status grossly normal, thought process normal and activity/motor behavior normal; negative for affect normal (Flat) Results Labs Labs: Short CBC 11/24/23 Range/Units 01:09 WBC 11.8 H (4.0-11.0) 10^3/uL Hgb 13.1 L (14.0-18.0) g/dL Hct 38.3 L (42.0-54.0) % Plt Count 262 (150-450) 10^3/uL BMP 11/24/23 01:09 Sodium 138 Potassium 3.6 Chloride 104 Carbon Dioxide 25.7 BUN 13.0 Creatinine 0.96 Glucose 120 H Calcium 9.0 Liver Function 11/24/23 Range/Units 01:09 Total Bilirubin 0.6 (0.2-1.0) mg/dL AST 19 (15-37) U/L ALT 35 (16-63) U/L Alkaline Phosphatase 99 (46-116) U/L Albumin 4.0 (3.4-5.0) g/dL Pulse Oximetry Attestation: I have reviewed the pertinent pulse oximetry results. Imaging CT scan - abdomen: Attestation: I have reviewed the pertinent imaging results. Radiologist's impression: IMPRESSION: 1. Reduced aortomesenteric distance of 6 mm and aortomesenteric angle of 37 degrees (reference range 28-65 degree). The reduced aortomesenteric distance suggests SMA syndrome in the appropriate clinical presentation. Focal mild narrowing of the left proximal renal vein and the third portion duodenum without yosvany bowel obstruction. 2. Moderate amount of liquid stool and gas scattered throughout the colon. Correlate for any underlying diarrhea. 3. Mild sigmoid diverticula without pericolonic inflammatory stranding. Assessment and Plan Assessment and Plan (1) Abdominal pain: Assessment and Plan: Acute on chronic * Adm observation * Suspect 2/2 to cannabinoid hyperemesis syndrome (CHS) vs SMA syndrome * As hot showers significantly improve his pain, this is clinically more consistent with CHS * The pt insists his sx are d/t SMA syndrome and that cannabis use is not the source of his pain/vomiting * Toradol IV scheduled q6h * Capsaicin creme QID PRN * Haldol 2.5 mg IVP x 1 * MS IVP initially ordered on admission overnight for breakthrough pain * DC per Dr Lares - narcotics are to be avoided * Cannabis use cessation advised * CBC, CMP daily (2) Vomiting: Assessment and Plan: Acute on Chronic * 2/2 to CHS vs SMA syndrome as above * PRN Zofran and Reglan * Add IVP Haldol for improved symptom control * NS IVF at 125/hr for hydration * clear liquid diet (3) Leukocytosis: Assessment and Plan: Acute on Chronic * Mild, 11.8 * Likely reactive. No evidence of infectious process to date, pt remains afebrile (4) Superior mesenteric artery syndrome: Assessment and Plan: Chronic * Confirmed on CT abdomen imaging, with mild narrowing of the duodenum and no evidence of SBO (5) Cannabinoid hyperemesis syndrome: Assessment and Plan: Chronic * see above
== END 2023-11-24 12:30 | disposition left against medical advice (07) ==
LOC: ER 04:48 → MS 05:26
PROVIDERS: Admitting Provider Family Medicine; Emergency Provider Internal Medicine; PCP Nurse Practitioner Family; Visit Provider Nurse Practitioner
DX: R10.9 Unspecified abdominal pain (principal); G89.29 Other chronic pain; R11.2 Nausea with vomiting, unspecified; F12.90 Cannabis use, unspecified, uncomplicated; K55.1 Chronic vascular disorders of intestine; F17.210 Nicotine dependence, cigarettes, uncomplicated; D72.829 Elevated white blood cell count, unspecified; Z53.29 Procedure and treatment not carried out because of patient's decision for other reasons
CPT/HCPCS: 36415; 74177; 80053; 80307; 83605; 83690; 85025; 93005; 94761; 96361; 96374; 96375; 96376; 99285; G0378; Q9967

== ENCOUNTER 2024-03-26 04:18 | Inpatient (IN) | payer SELFPAY ==
[2024-03-26] VITALS (8 sets, daily range): BP systolic 123–162; BP diastolic 61–99; PULSE 57–128; TEMP 36.7–37.2; O2SAT 94–98; BMI 24.2; BMI 24.0
--- OUTSIDE RECORDS SUMMARY | 2024-03-26 04:24 | XMS_ITS | CCD ---
Author Organization [facility] Care Team Providers Care Wound Care Coordinator Name Role Phone GLEN ., DR LECHUGA Attending Unavailable HOY ., DR LECHUGA Consulting Unavailable HOY ., DR LECHUGA Primary Care Unavailable HOY ., DR LECHUGA Admitting Unavailable ZIEBER, DR MISAEL Laboy Consulting Unavailable HAY ., DR FRAGA Consulting Unavailable ZIEBER, DR MISAEL Laboy Consulting Unavailable HOY ., DR LECHUGA Primary Care Unavailable TITUS HILARIO Admitting Unavailable SULAIMAN, TITUS Attending Unavailable TITUS HILARIO Consulting Unavailable PAY ., DR PAINTING Admitting Unavailable HOY ., DR LECHUGA Primary Care Unavailable PAY ., DR PAINTING Attending Unavailable PAY ., DR PAINTING Consulting Unavailable HOY ., DR LECHUGA Attending Unavailable HOY ., DR LECHUGA Consulting Unavailable HOY ., DR LECHUGA Primary Care Unavailable HOY ., DR LECHUGA Admitting Unavailable MARKER ., DR KELLY Consulting Unavailable ALIYAH LAL Consulting Unavailable HOY ., DR LECHUGA Admanna Unavailable HOY ., DR LECHUGA Attending Unavailable HOY ., DR LECHUGA Consulting Unavailable HOY ., DR LECHUGA Primary Care Unavailable HAY ., DR FRAGA Consulting Unavailable ERVIN CHAO Consulting Unavailable EMILE CRAIG Consulting Unavailable LI SINGH Consulting Unavailable HOY ., DR LECHUGA Attending Unavailable HOY ., DR LECHUGA Consulting Unavailable HOY ., DR LECHUGA Primary Care Unavailable HOY ., DR LECHUGA Admitting Unavailable YANNICK, DR MANUELA Willard Consulting Unavailable ERVIN CHAO Consulting Unavailable GUERA HUNTER Consulting Unavailable Problems Active Problems Problem Classification Problem Date Documented Da te Episodic/Chronic Abdominal pain (1 source) Unspecified abdominal pain; Translations: [UNSPECIFIED ABDOMINAL PAIN] Onset: 10-19-2022 Episodic Diseases of white blood cells (1 source) Elevated white blood cell count, unspecified; Translations: [ELEVATED WHITE BLOOD CELL COUNT UNS] Onset: 10-19-2022 Chronic Essential hypertension (1 source) Essential (primary) hypertension; Translations: [ESSENTIAL PRIMARY HYPERTENSION] Onset: 10-19-2022 Chronic Fluid and electrolyte disorders (1 source) Dehydration; Translations: [DEHYDRATION] Onset: 10-19-2022 Episodic Nausea and vomiting (4 sources) Nausea with vomiting, unspecified; Translations: [NAUSEA WITH VOMITING UNSPECIFIED] Onset: 08-12-2022 Episodic Other aftercare (1 source) Other mcc (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 therapy; Translations: [OTH GROUP HOME CURRENT DRUG THERAPY] Onset: 10-19-2022 Episodic Other aftercare (1 source) intermediate (current) use of aspirin; Translations: [[place]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] Onset: 10-19-2022 Episodic Other connective tissue disease (4 sources) Pain in right forearm; Translations: [PAIN IN RIGHT FOREARM] Onset: 10-07-2022 Episodic Other nervous system disorders (1 source) Other chronic pain; Translations: [OTHER CHRONIC PAIN] Onset: 09-12-2022 Chronic Other nutritional; endocrine; and metabolic disorders (1 source) Disorder of urea cycle metabolism, unspecified; Translations: [DISORDER UREA CYCLE METABOLISM UNS] Onset: 09-12-2022 Chronic Peripheral and visceral atherosclerosis (2 sources) Chronic vascular disorders of intestine; Translations: [Other vascular disorders of intestine] Onset: 09-12-2022 Chronic Substance-related disorders (2 sources) Nicotine dependence, cigarettes, uncomplicated; Translations: [Cannabis abuse, uncomplicated] Onset: 10-19-2022 Chronic Substance-related disorders (1 source) Cannabis use, unspecified, uncomplicated; Translations: [CANNABIS USE UNS UNCOMPLICATED] Onset: 10-18-2022 Episodic Unclassified (4 sources) Cyclical vomiting syndrome unrelated to migraine; Translations: [CYCLICL VOMTNG SYN UNRELTD MIGRAINE] Onset: 10-12-2022 Unclassified (1 source) CONTACT W/AND (SUSP) EXPOS COVID-19; Translations: [CONTACT W/AND (SUSP) EXPOS COVID-19] Onset: 10-19-2022 Past or Other Problems Problem Classification Problem Date Documented Da te Episodic/Chronic Disorders of teeth and jaw (5 sources) Other specified disorders of teeth and supporting structures; Translations: [Dental caries, unspecified] Onset: 08-07-2022 Episodic Other nervous system disorders (1 source) Atypical facial pain; Translations: [ATYPICAL FACIAL PAIN] Onset: 02-07-2022 Episodic Results Test Name Value Interpretation Reference Range Facility COMPLIANCE DRUG SCREENon PDF . [facility] Comment on above: Performed By: #### C VDTB #### [facility] [address] [address] [address] Rosa Tran Summary FINAL Normal [facility] Comment on above: Result Comment: TOXASSURE COMP DRUG ANALYSIS,UR Test Result Flag Units Drug Present Carboxy-THC >546 ng/mg creat Carboxy-THC is a metabolite of tetrahydrocannabinol (THC). Source of THC is most commonly herbal marijuana or marijuana-based products, but THC is also present in a scheduled prescription medication. Trace amounts of THC can be present in hemp and cannabidiol (CBD) products. This test is not intended to distinguish between vrfts-6-luzvlpqwgqofupdjsenn, the predominant form of THC in most herbal or marijuana-based products, and wirsk-2-abmtnfjfklvtdfnftljz. Amitriptyline PRESENT Nortriptyline PRESENT Nortriptyline may be administered as a prescription drug; it is also an expected metabolite of amitriptyline. Acetaminophen PRESENT Diphenhydramine PRESENT Test Result Flag Units Ref Range Creatinine 183 mg/dL >=20 Declared Medications: Medication list was not provided. For clinical consultation, please call . Performed By: #### C VDTBH #### [facility] [address] [place] [address] Dr. Rosa Tran CBC AUTO DIFFon 10-14-2022 BASO # 0.0 103/ul Normal 0.0-0.1 [facility] Comment on above: Performed By: #### C VDTBH #### [facility] [address] [place] [address] Dr. Rosa Tran Basophils/100 WBC (Bld) 0.5 % Normal 0.2-2.0 [facility] Comment on above: Performed By: #### C VDTBH #### [facility] [address] [place] [address] Dr. Rosa Tran EO # 0.0 103/ul Normal 0.0-0.7 [facility] Comment on above: Performed By: #### C VDTBH #### [facility] [address] [place] [address] Dr. Rosa Tran Eosinophils/100 WBC (Bld) 0.2 % Critically low 0.9-7.0 [facility] Comment on above: Performed By: #### C VDTBH #### [facility] [address] [place] [address] Dr. Rosa Tran Erythrocyte distribution width (RBC) [Ratio] 12.5 % Normal 11.0-15.0 [facility] Comment on above: Performed By: #### C VDTBH #### [facility] [address] [place] [address] Dr. Rosa Tran Hematocrit (Bld) [Volume fraction] 39.7 % Critically low 42.0-54.0 [facility] Comment on above: Performed By: #### C VDTBH #### [facility] [address] [place] [address] Dr. Rosa Tran Hemoglobin (Bld) [Mass/Vol] 13.9 g/dL Critically low 14.0-18.0 [facility] Comment on above: Performed By: #### C VDTBH #### [facility] [address] [place] [address] Dr. Rosa Tran IG # 0.02 10e3/ul Normal 0.00-0.03 [facility] Comment on above: Performed By: #### C VDTBH #### [facility] [address] [place] [address] Dr. Rosa Tran IG % 0.2 % Normal 0.0-0.5 [facility] Comment on above: Performed By: #### C VDTBH #### [facility] [address] [place] [address] Dr. Rosa Tran LYMPH # 1.7 103/ul Normal 1.2-3.8 [facility] Comment on above: Performed By: #### C VDTBH #### [facility] [address] [place] [address] Dr. Rosa Tran Lymphocytes/100 WBC (Bld) 19.2 % Critically low 20.5-60.0 [facility] Comment on above: Performed By: #### C VDTBH #### [facility] [address] [place] [address] Dr. Rosa Tran MANUAL DIFF REQ NO Normal [facility] Comment on above: Performed By: #### C VDTBH #### [facility] [address] [place] [address] Dr. Rosa Tran MCH (RBC) [Entitic mass] 30.5 pg Normal 25.9-34.0 [facility] Comment on above: Performed By: #### C VDTBH #### [facility] [address] [place] [address] Dr. Rosa Tran MCHC (RBC) [Mass/Vol] 35.0 g/dL Normal 29.9-35.2 [facility] Comment on above: Performed By: #### C VDTBH #### [facility] [address] [place] [address] Dr. Rosa Tran MCV (RBC) [Entitic vol] 87.1 fL Normal 80.0-94.0 [facility] Comment on above: Performed By: #### C VDTBH #### [facility] [address] [place] [address] Dr. Rosa Tran MONO # 0.6 103/ul Normal 0.3-0.8 [facility] Comment on above: Performed By: #### C VDTBH #### [facility] [address] [place] [address] Dr. Rosa Tran Monocytes/100 WBC (Bld) 7.2 % Normal 1.7-12.0 [facility] Comment on above: Performed By: #### C VDTBH #### [facility] [address] [place] [address] Dr. Rosa Tran NEUT # 6.4 103/ul Normal 1.4-6.5 [facility] Comment on above: Performed By: #### C VDTBH #### [facility] [address] [place] [address] Dr. Rosa Tran Neutrophils/100 WBC (Bld) 72.7 % Normal 43.0-75.0 [facility] Comment on above: Performed By: #### C VDTBH #### [facility] [address] [place] [address] Dr. Rosa Tran Platelet mean volume (Bld) [Entitic vol] 9.6 fL Normal 9.5-13.5 [facility] Comment on above: Performed By: #### C VDTBH #### [facility] [address] [address] [address] Rosa Tran PLT 255 103/ul Normal 150-450 [facility] Comment on above: Performed By: #### C VDTBH #### [facility] [address] [place] [address] Dr. Rosa Tran RBC 4.56 106/ul Critically low 4.70-6.10 [facility] Comment on above: Performed By: #### C VDTBH #### [facility] [address] [place] [address] Dr. Rosa Tran WBC 8.8 103/ul Normal 4.0-11.0 [facility] Comment on above: Performed By: #### C VDTBH #### [facility] [address] [place] [address] Dr. Rosa Tran PROF CHEM 8 (BAS METB)on Anion gap [Moles/Vol] 12.0 mmol/L Normal [facility] Comment on above: Performed By: #### C VDTBH #### [facility] [address] [place] [address] Dr. Rosa Tran Calcium [Mass/Vol] 9.1 mg/dL Normal 8.5-10.1 [facility] Comment on above: Performed By: #### C VDTBH #### [facility] [address] [place] [address] Dr. Rosa Tran Chloride [Moles/Vol] 104 mmol/L Normal 98-107 [facility] Comment on above: Performed By: #### C VDTBH #### [facility] [address] [place] [address] Dr. Rosa Tran CO2 [Moles/Vol] 27.1 mmol/L Normal 21.0-32.0 [facility] Comment on above: Performed By: #### C VDTBH #### [facility] [address] [place] [address] Dr. Rosa Tran Creatinine [Mass/Vol] 0.71 mg/dL Normal 0.70-1.30 [facility] Comment on above: Performed By: #### C VDTBH #### [facility] [address] [place] [address] Dr. Rosa Tran EGFR-AF SENEGALESE >60 Normal >=60 [facility] Comment on above: Performed By: #### C VDTBH #### [facility] [address] [place] [address] Dr. Rosa Tran EGFR-NON AF SENEGALESE >60 Normal >=60 [facility] Comment on above: Performed By: #### C VDTBH #### [facility] [address] [place] [address] Dr. Rosa Tran Glucose [Mass/Vol] 116 mg/dL Critically high 74-106 [facility] Comment on above: Performed By: #### C VDTBH #### [facility] [address] [place] [address] Dr. Rosa Tran Potassium [Moles/Vol] 3.1 mmol/L Critically low 3.5-5.1 [facility] Comment on above: Performed By: #### C VDTBH #### [facility] [address] [place] [address] Dr. Rosa Tran Sodium [Moles/Vol] 140 mmol/L Normal 136-145 [facility] Comment on above: Performed By: #### C VDTBH #### [facility] [address] [place] [address] Dr. Rosa Tran Urea nitrogen [Mass/Vol] 10.0 mg/dL Normal 7.0-18.0 [facility] Comment on above: Performed By: #### C VDTBH #### [facility] [address] [place] [address] Dr. Rosa Tran Urea nitrogen/Creatini ne [Mass ratio] 14.1 mg/mg Normal [facility] Comment on above: Performed By: #### C VDTBH #### [facility] [address] [place] [address] Dr. Rosa Tran CBC AUTO DIFFon 10-13-2022 BASO # 0.1 103/ul Normal 0.0-0.1 [facility] Comment on above: Performed By: #### C BC ####[facility] [address] [address]Dr. Rosa Tran Basophils/100 WBC (Bld) 0.7 % Normal 0.2-2.0 [facility] Comment on above: Performed By: #### C BC ####[facility] [address] [place], [place] [address]Dr. Rosa Tran EO # 0.0 103/ul Normal 0.0-0.7 [facility] Comment on above: Performed By: #### C BC ####[facility] [address] [place], [place] [address]Dr. Rosa Tran Eosinophils/100 WBC (Bld) 0.1 % Critically low 0.9-7.0 [facility] Comment on above: Performed By: #### C BC ####[facility] [address] [place], [place] [address]Dr. Rosa Tran Erythrocyte distribution width (RBC) [Ratio] 12.8 % Normal 11.0-15.0 [facility] Comment on above: Performed By: #### C BC ####[facility] [address] [place], [place] [address]Dr. Rosa Tran Hematocrit (Bld) [Volume fraction] 37.8 % Critically low 42.0-54.0 [facility] Comment on above: Performed By: #### C BC ####[facility] [address] [place], [place] [address]Dr. Rosa Tran Hemoglobin (Bld) [Mass/Vol] 12.7 g/dL Critically low 14.0-18.0 [facility] Comment on above: Performed By: #### C BC ####[facility] [address] [place], [place] [address]Dr. Rosa Tran IG # 0.04 10e3/ul Critically high 0.00-0.03 [facility] Comment on above: Performed By: #### C BC ####[facility] [address] [place], [place] [address]DrArgelia Tran IG % 0.5 % Normal 0.0-0.5 [facility] Comment on above: Performed By: #### C BC ####[facility] [address] [address]DrArgelia Tran LYMPH # 1.8 103/ul Normal 1.2-3.8 [facility] Comment on above: Performed By: #### C BC ####[facility] [address] [address]DrArgelia Tran Lymphocytes/100 WBC (Bld) 23.3 % Normal 20.5-60.0 [facility] Comment on above: Performed By: #### C BC ####[facility] [address] [place], [place] [address]DrArgelia Tran MANUAL DIFF REQ NO Normal [facility] Comment on above: Performed By: #### C BC ####[facility] [address] [place], [place] [address]DrArgelia Tran MCH (RBC) [Entitic mass] 30.4 pg Normal 25.9-34.0 [facility] Comment on above: Performed By: #### C BC ####[facility] [address] [place], [place] [address]DrArgelia Rosa Marc MCHC (RBC) [Mass/Vol] 33.6 g/dL Normal 29.9-35.2 [facility] Comment on above: Performed By: #### C BC ####[facility] [address] [place], [place] [address]DrArgelia Tran MCV (RBC) [Entitic vol] 90.4 fL Normal 80.0-94.0 [facility] Comment on above: Performed By: #### C BC ####[facility] [address] [place], [place] [address]DrArgelia Tran MONO # 0.5 103/ul Normal 0.3-0.8 [facility] Comment on above: Performed By: #### C BC ####[facility] [address] [place], [place] [address]DrArgelia Tran Monocytes/100 WBC (Bld) 6.7 % Normal 1.7-12.0 [facility] Comment on above: Performed By: #### C BC ####[facility] [address] [address]DrArgelia Carlsonyoselin Tran NEUT # 5.3 103/ul Normal 1.4-6.5 [facility] Comment on above: Performed By: #### C BC ####[facility] [address] [address]DrArgelia Tran Neutrophils/100 WBC (Bld) 68.7 % Normal 43.0-75.0 [facility] Comment on above: Performed By: #### C BC ####[facility] [address] [place], [place] [address]DrArgelia Tran Platelet mean volume (Bld) [Entitic vol] 9.4 fL Critically low 9.5-13.5 [facility] Comment on above: Performed By: #### C BC ####[facility] [address] [place], [place] [address]DrArgelia Tran PLT 221 103/ul Normal 150-450 [facility] Comment on above: Performed By: #### C BC ####[facility] [address] [place], [place] [address]DrArgelia Tran RBC 4.18 106/ul Critically low 4.70-6.10 [facility] Comment on above: Performed By: #### C BC ####[facility] [address] [address]DrArgelia Tran WBC 7.6 103/ul Normal 4.0-11.0 [facility] Comment on above: Performed By: #### C BC ####[facility] [address] [place], [place] [address]DrArgelia Tran PROF CHEM 8 (BAS METB)on Anion gap [Moles/Vol] 9.4 mmol/L Normal [facility] Comment on above: Performed By: #### B MP ####[facility] [address] [place], [place] [address]DrArgelia Tran Calcium [Mass/Vol] 8.6 mg/dL Normal 8.5-10.1 [facility] Comment on above: Performed By: #### B MP ####[facility] [address] [address]Dr. Rosa Tran Chloride [Moles/Vol] 105 mmol/L Normal 98-107 [facility] Comment on above: Performed By: #### B MP ####[facility] [address] [address]Dr. Rosa Tran CO2 [Moles/Vol] 26.9 mmol/L Normal 21.0-32.0 [facility] Comment on above: Performed By: #### B MP ####[facility] [address] [place], [place] [address]Dr. Rosa Tran Creatinine [Mass/Vol] 0.61 mg/dL Critically low 0.70-1.30 [facility] Comment on above: Performed By: #### B MP ####[facility] [address] [place], [place] [address]Dr. Rosa Tran EGFR-AF SENEGALESE >60 Normal >=60 [facility] Comment on above: Performed By: #### B MP ####[facility] [address] [place], [place] [address]Dr. Rosa Marc EGFR-NON AF SENEGALESE >60 Normal >=60 [facility] Comment on above: Performed By: #### B MP ####[facility] [address] [address]Dr. Rosa Marc Glucose [Mass/Vol] 124 mg/dL Critically high 74-106 [facility] Comment on above: Performed By: #### B MP ####[facility] [address] [place], [place] [address]Dr. Robynyoselin Marc Potassium [Moles/Vol] 3.3 mmol/L Critically low 3.5-5.1 [facility] Comment on above: Performed By: #### B MP ####[facility] [address] [place], [place] [address]Dr. Rosa Tran Sodium [Moles/Vol] 138 mmol/L Normal 136-145 [facility] Comment on above: Performed By: #### B MP ####[facility] [address] [id number]. Rosa Tran Urea nitrogen [Mass/Vol] 5.0 mg/dL Critically low 7.0-18.0 [facility] Comment on above: Performed By: #### B MP ####[facility] [address] [id number]. Rosa Tran Urea nitrogen/Creatini ne [Mass ratio] 8.2 mg/mg Normal [facility] Comment on above: Performed By: #### B MP ####[facility] [address] [id number]. Rosa Tran XR ABD FLAT UP_PA [facility] 10-13 XR ABD FLAT UP_PA CH EXAM: Acute abdomen series: HISTORY: Abdominal pain with nausea and vomiting. History of SMA syndrome. COMPARISON STUDY: 10/10/2022 FINDINGS: The upright frontal view of the chest shows clear and well-inflated lungs. The heart and mediastinum are normal. Flat and upright views of the abdomen and pelvis show a normal bowel gas pattern. There is mild to moderate amount of stool in the colon. No abnormal calcifications are seen. Osseous structures are normal. IMPRESSION: Grossly negative for an acute intra-abdominal process. Electronically authenticated by: EMILE CRAIG Date: 2022-10-13 09:07 Normal The [facility] CBC AUTO DIFFon 10-12-2022 BASO # 0.0 103/ul Normal 0.0-0.1 The [facility] Comment on above: Performed By: #### C BC #### [facility] Laboratory [address] [address] [address] Rosa Tran Basophils/100 WBC (Bld) 0.4 % Normal 0.2-2.0 The [facility] Comment on above: Performed By: #### C BC #### [facility] Laboratory [address] [address] [address] Rosa Tran EO # 0.0 103/ul Normal 0.0-0.7 The [facility] Comment on above: Performed By: #### C BC #### [facility] Laboratory [address] [place] [address] Dr. Rosa Tran Eosinophils/100 WBC (Bld) 0.0 % Critically low 0.9-7.0 The [facility] Comment on above: Performed By: #### C BC #### [facility] Laboratory [address] [place] [address] Dr. Rosa Tran Erythrocyte distribution width (RBC) [Ratio] 13.2 % Normal 11.0-15.0 The [facility] Comment on above: Performed By: #### C BC #### [facility] Laboratory [address] [place] [address] Dr. Rosa Tran Hematocrit (Bld) [Volume fraction] 34.9 % Critically low 42.0-54.0 The [facility] Comment on above: Performed By: #### C BC #### [facility] Laboratory [address] [place] [address] Dr. Rosa Tran Hemoglobin (Bld) [Mass/Vol] 11.9 g/dL Critically low 14.0-18.0 [facility] Comment on above: Performed By: #### C BC #### [facility] Laboratory [address] [place] [address] Dr. Rosa Tran IG # 0.02 10e3/ul Normal 0.00-0.03 The [facility] Comment on above: Performed By: #### C BC #### [facility] Laboratory [address] [place] [address] Dr. Rosa Tran IG % 0.2 % Normal 0.0-0.5 The [facility] Comment on above: Performed By: #### C BC #### [facility] Laboratory [address] [place] [address] Dr. Rosa Tran LYMPH # 1.3 103/ul Normal 1.2-3.8 The [facility] Comment on above: Performed By: #### C BC #### [facility] Laboratory [address] [place] [address] Dr. Rosa Tran Lymphocytes/100 WBC (Bld) 15.5 % Critically low 20.5-60.0 The [facility] Comment on above: Performed By: #### C BC #### [facility] Laboratory [address] [place] [address] Dr. Rosa Tran MANUAL DIFF REQ NO Normal [facility] Comment on above: Performed By: #### C BC #### [facility] Laboratory [address] [place] [address] Dr. Rosa Tran MCH (RBC) [Entitic mass] 31.0 pg Normal 25.9-34.0 [facility] Comment on above: Performed By: #### C BC #### [facility] Laboratory [address] [place] [address] Dr. Rosa Tran MCHC (RBC) [Mass/Vol] 34.1 g/dL Normal 29.9-35.2 The [facility] Comment on above: Performed By: #### C BC #### [facility] Laboratory [address] [place] [address] Dr. Rosa Tran MCV (RBC) [Entitic vol] 90.9 fL Normal 80.0-94.0 [facility] Comment on above: Performed By: #### C BC #### [facility] Laboratory [address] [place] [address] Dr. Rosa Tran MONO # 0.4 103/ul Normal 0.3-0.8 [facility] Comment on above: Performed By: #### C BC #### [facility] Laboratory [address] [place] [address] Dr. Rosa Tran Monocytes/100 WBC (Bld) 4.9 % Normal 1.7-12.0 [facility] Comment on above: Performed By: #### C BC #### [facility] Laboratory [address] [place] [address] Dr. Rosa Tran NEUT # 6.6 103/ul Critically high 1.4-6.5 [facility] Comment on above: Performed By: #### C BC #### [facility] Laboratory [address] [place] [address] Dr. Rosa Tran Neutrophils/100 WBC (Bld) 79.0 % Critically high 43.0-75.0 [facility] Comment on above: Performed By: #### C BC #### [facility] Laboratory [address] [place] [address] Dr. Rosa Tran Platelet mean volume (Bld) [Entitic vol] 9.9 fL Normal 9.5-13.5 [facility] Comment on above: Performed By: #### C BC #### [facility] Laboratory [address] [address] [address] Rosa Tran PLT 196 103/ul Normal 150-450 [facility] Comment on above: Performed By: #### C BC #### [facility] Laboratory [address] [address] [address] Rosa Tran RBC 3.84 106/ul Critically low 4.70-6.10 [facility] Comment on above: Performed By: #### C BC #### [facility] Laboratory [address] [address] [address] Rosa Tran WBC 8.4 103/ul Normal 4.0-11.0 [facility] Comment on above: Performed By: #### C BC #### [facility] Laboratory [address] [address] [address] Rosa Tran PROF CHEM 8 (BAS METB)on Anion gap [Moles/Vol] 12.1 mmol/L Normal [facility] Comment on above: Performed By: #### B MP ####[facility] [address] [address]DrArgelia Tran Calcium [Mass/Vol] 8.1 mg/dL Critically low 8.5-10.1 [facility] Comment on above: Performed By: #### B MP ####[facility] [address] [address]DrArgelia Tran Chloride [Moles/Vol] 108 mmol/L Critically high 98-107 The [facility] Comment on above: Performed By: #### B MP ####[facility] [address] [address]DrArgelia Tran CO2 [Moles/Vol] 24.5 mmol/L Normal 21.0-32.0 The [facility] Comment on above: Performed By: #### B MP ####[facility] [address] [address]Dr[address] Rosa Tran Creatinine [Mass/Vol] 0.64 mg/dL Critically low 0.70-1.30 [facility] Comment on above: Performed By: #### B MP ####[facility] [address] [address] Robynyoselin Marc EGFR-AF SENEGALESE >60 Normal >=60 The [facility] Comment on above: Performed By: #### B MP ####[facility] [address] [address]Dr. Rosa Tran EGFR-NON AF SENEGALESE >60 Normal >=60 The [facility] Comment on above: Performed By: #### B MP ####[facility] [address] [place], [place] [address]Dr. Rosa Tran Glucose [Mass/Vol] 132 mg/dL Critically high 74-106 The [facility] Comment on above: Performed By: #### B MP ####[facility] [address] [place], [place] [address]Dr. Rosa Tran Potassium [Moles/Vol] 3.6 mmol/L Normal 3.5-5.1 The [facility] Comment on above: Performed By: #### B MP ####[facility] [address] [place], [place] [address]Dr. Rosa Tran Sodium [Moles/Vol] 141 mmol/L Normal 136-145 The [facility] Comment on above: Performed By: #### B MP ####[facility] [address] [place], [place] [address]Dr. Rosa Tran Urea nitrogen [Mass/Vol] 7.0 mg/dL Normal 7.0-18.0 The [facility] Comment on above: Performed By: #### B MP ####[facility] [address] [place], [place] [address]Dr. Rosa Tran Urea nitrogen/Creatini ne [Mass ratio] 10.9 mg/mg Normal The [facility] Comment on above: Performed By: #### B MP ####[facility] [address] [place], [place] [address]Dr. Rosa Tran CBC AUTO DIFFon 10-11-2022 BASO # 0.0 103/ul Normal 0.0-0.1 The [facility] Comment on above: Performed By: #### C VDTBH #### [facility] Laboratory [address] [place] [address] Dr. Rosa Tran Basophils/100 WBC (Bld) 0.4 % Normal 0.2-2.0 [facility] Comment on above: Performed By: #### C VDTBH #### [facility] Laboratory [address] [place] [address] Dr. Rosa Tran EO # 0.0 103/ul Normal 0.0-0.7 [facility] Comment on above: Performed By: #### C VDTBH #### [facility] Laboratory [address] [place] [address] Dr. Rosa Tran Eosinophils/100 WBC (Bld) 0.1 % Critically low 0.9-7.0 [facility] Comment on above: Performed By: #### C VDTBH #### [facility] Laboratory [address] [place] [address] Dr. Rosa Tran Erythrocyte distribution width (RBC) [Ratio] 13.2 % Normal 11.0-15.0 [facility] Comment on above: Performed By: #### C VDTBH #### [facility] Laboratory [address] [place] [address] Dr. Rosa Tran Hematocrit (Bld) [Volume fraction] 36.5 % Critically low 42.0-54.0 [facility] Comment on above: Performed By: #### C VDTBH #### [facility] Laboratory [address] [place] [address] Dr. Rosa Tran Hemoglobin (Bld) [Mass/Vol] 12.5 g/dL Critically low 14.0-18.0 [facility] Comment on above: Performed By: #### C VDTBH #### [facility] Laboratory [address] [place] [address] Dr. Rosa Tran IG # 0.03 10e3/ul Normal 0.00-0.03 [facility] Comment on above: Performed By: #### C VDTBH #### [facility] Laboratory [address] [address] [address] Rosa Tran IG % 0.3 % Normal 0.0-0.5 [facility] Comment on above: Performed By: #### C VDTBH #### [facility] Laboratory [address] [address] [address] Rosa Tran LYMPH # 1.7 103/ul Normal 1.2-3.8 [facility] Comment on above: Performed By: #### C VDTBH #### [facility] Laboratory [address] [address] [address] Rosa Tran Lymphocytes/100 WBC (Bld) 16.2 % Critically low 20.5-60.0 [facility] Comment on above: Performed By: #### C VDTBH #### [facility] Laboratory [address] [place] [address] Dr. Rosa Tran MANUAL DIFF REQ NO Normal [facility] Comment on above: Performed By: #### C VDTBH #### [facility] Laboratory [address] [place] [address] Dr. Rosa Tran MCH (RBC) [Entitic mass] 30.8 pg Normal 25.9-34.0 [facility] Comment on above: Performed By: #### C VDTBH #### [facility] Laboratory [address] [place] [address] Dr. Rosa Tran MCHC (RBC) [Mass/Vol] 34.2 g/dL Normal 29.9-35.2 [facility] Comment on above: Performed By: #### C VDTBH #### [facility] Laboratory [address] [place] [address] Dr. Rosa Tran MCV (RBC) [Entitic vol] 89.9 fL Normal 80.0-94.0 [facility] Comment on above: Performed By: #### C VDTBH #### [facility] Laboratory [address] [place] [address] Dr. Rosa Tran MONO # 0.7 103/ul Normal 0.3-0.8 [facility] Comment on above: Performed By: #### C VDTB #### [facility] Laboratory [address] [place] [address] Dr. Rosa Tran Monocytes/100 WBC (Bld) 7.2 % Normal 1.7-12.0 [facility] Comment on above: Performed By: #### C VDTBH #### [facility] Laboratory [address] [place] [address] Dr. Rosa Tran NEUT # 7.7 103/ul Critically high 1.4-6.5 [facility] Comment on above: Performed By: #### C VDTBH #### [facility] Laboratory [address] [place] [address] Dr. Rosa Tran Neutrophils/100 WBC (Bld) 75.8 % Critically high 43.0-75.0 [facility] Comment on above: Performed By: #### C VDTBH #### [facility] Laboratory [address] [place] [address] Dr. Rosa Tran Platelet mean volume (Bld) [Entitic vol] 9.1 fL Critically low 9.5-13.5 [facility] Comment on above: Performed By: #### C VDTBH #### [facility] Laboratory [address] [place] [address] Dr. Rosa Tran PLT 223 103/ul Normal 150-450 [facility] Comment on above: Performed By: #### C VDTBH #### [facility] Laboratory [address] [place] [address] Dr. Rosa Tran RBC 4.06 106/ul Critically low 4.70-6.10 [facility] Comment on above: Performed By: #### C VDTBH #### [facility] Laboratory [address] [place] [address] Dr. Rosa Tran WBC 10.2 103/ul Normal 4.0-11.0 [facility] Comment on above: Performed By: #### C VDTBH #### [facility] Laboratory [address] [place] [address] Dr. Rosa Tran BASO # 0.0 103/ul Normal 0.0-0.1 [facility] Comment on above: Performed By: #### C BC #### [facility] Laboratory [address] [address] [address] Rosa Tran Basophils/100 WBC (Bld) 0.2 % Normal 0.2-2.0 [facility] Comment on above: Performed By: #### C BC #### [facility] Laboratory [address] [place] [address] Dr. Rosa Tran EO # 0.0 103/ul Normal 0.0-0.7 [facility] Comment on above: Performed By: #### C BC #### [facility] Laboratory [address] [place] [address] Dr. Rosa Tran Eosinophils/100 WBC (Bld) 0.0 % Critically low 0.9-7.0 [facility] Comment on above: Performed By: #### C BC #### [facility] Laboratory [address] [place] [address] Dr. Rosa Tran Erythrocyte distribution width (RBC) [Ratio] 13.2 % Normal 11.0-15.0 [facility] Comment on above: Performed By: #### C BC #### [facility] Laboratory [address] [place] [address] Dr. Rosa Tran Hematocrit (Bld) [Volume fraction] 35.1 % Critically low 42.0-54.0 [facility] Comment on above: Performed By: #### C BC #### [facility] Laboratory [address] [place] [address] Dr. Rosa Tran Hemoglobin (Bld) [Mass/Vol] 11.9 g/dL Critically low 14.0-18.0 [facility] Comment on above: Performed By: #### C BC #### [facility] Laboratory [address] [place] [address] Dr. Rosa Tran IG # 0.03 10e3/ul Normal 0.00-0.03 [facility] Comment on above: Performed By: #### C BC #### [facility] Laboratory [address] [place] [address] Dr. Rosa Tran IG % 0.3 % Normal 0.0-0.5 [facility] Comment on above: Performed By: #### C BC #### [facility] Laboratory [address] [address] [address] Rosa Tran LYMPH # 1.2 103/ul Normal 1.2-3.8 [facility] Comment on above: Performed By: #### C BC #### [facility] Laboratory [address] [place] [address] Dr. Rosa Tran Lymphocytes/100 WBC (Bld) 13.3 % Critically low 20.5-60.0 [facility] Comment on above: Performed By: #### C BC #### [facility] Laboratory [address] [place] [address] Dr. Rosa Tran MANUAL DIFF REQ NO Normal [facility] Comment on above: Performed By: #### C BC #### [facility] Laboratory [address] [place] [address] Dr. Rosa Tran MCH (RBC) [Entitic mass] 30.6 pg Normal 25.9-34.0 [facility] Comment on above: Performed By: #### C BC #### [facility] Laboratory [address] [place] [address] Dr. Rosa Tran MCHC (RBC) [Mass/Vol] 33.9 g/dL Normal 29.9-35.2 [facility] Comment on above: Performed By: #### C BC #### [facility] Laboratory [address] [place] [address] Dr. Rosa Tran MCV (RBC) [Entitic vol] 90.2 fL Normal 80.0-94.0 [facility] Comment on above: Performed By: #### C BC #### [facility] Laboratory [address] [place] [address] Dr. Rosa Tran MONO # 0.5 103/ul Normal 0.3-0.8 [facility] Comment on above: Performed By: #### C BC #### [facility] Laboratory [address] [place] [address] Dr. Rosa Tran Monocytes/100 WBC (Bld) 5.4 % Normal 1.7-12.0 [facility] Comment on above: Performed By: #### C BC #### [facility] Laboratory [address] [place], [place] [address] Dr. Rosa Tran NEUT # 7.3 103/ul Critically high 1.4-6.5 [facility] Comment on above: Performed By: #### C BC #### [facility] Laboratory [address] [place] [address] Dr. Rosa Tran Neutrophils/100 WBC (Bld) 80.8 % Critically high 43.0-75.0 [facility] Comment on above: Performed By: #### C BC #### [facility] Laboratory [address] [place] [address] Dr. Rosa Tran Platelet mean volume (Bld) [Entitic vol] 10.0 fL Normal 9.5-13.5 [facility] Comment on above: Performed By: #### C BC #### [facility] Laboratory [address] [place] [address] Dr. Rosa Tran PLT 225 103/ul Normal 150-450 [facility] Comment on above: Performed By: #### C BC #### [facility] Laboratory [address] [place] [address] Dr. Rosa Tran RBC 3.89 106/ul Critically low 4.70-6.10 [facility] Comment on above: Performed By: #### C BC #### [facility] Laboratory [address] [place] [address] Dr. Rosa Tran WBC 9.1 103/ul Normal 4.0-11.0 [facility] Comment on above: Performed By: #### C BC #### [facility] Laboratory [address] [place] [address] Dr. Rosa Tran [facility]on 10-01 SARS-CoV-2 (COVID-19) RNA VIKAS+probe Ql (Unsp spec) Not detected Normal NOT DETECTED The [facility] Comment on above: Result Comment: When diagnostic testing is negative, the possibility of a false negative should be considered in the context of a patient's recent exposures and the presence of clinical signs and symptoms consistent with SARS-CoV-2. This test is not yet approved or cleared by the [place] FDA. When there are no FDA-approved or cleared tests available, and other criteria are met, FDA can make tests available under an emergency access mechanism called an Emergency Use Authorization (EUA). The EUA for this test is supported by the [employer] of Health and Human Service's declaration that circumstances exist to justify the emergency use of in vitro diagnostics for the detection and/or diagnosis of the virus that causes COVID-19. This EUA will remain in effect for the duration of the COVID-19 declaration justifying emergency of IVDs, unless it is terminated or revoked by the FDA (after which the test may no longer be used). Performed By: #### C VDTBH #### [facility] Laboratory [address] [place] [address] Dr. Rosa Tran DRUG SCREEN RAPID (URINE)on 10-11-2022 AMP Negative Normal NEGATIVE [facility] Comment on above: Performed By: #### C VDTBH #### [facility] Laboratory [address] [place] [address] Dr. Rosa Tran BAR Negative Normal NEGATIVE [facility] Comment on above: Performed By: #### C VDTBH #### [facility] Laboratory [address] [place] [address] Dr. Rosa Tran BUP Negative Normal NEGATIVE [facility] Comment on above: Performed By: #### C VDTBH #### [facility] Laboratory [address] [place] [address] Dr. Rosa Tran BZO Negative Normal NEGATIVE [facility] Comment on above: Performed By: #### C VDTBH #### [facility] Laboratory [address] [place] [address] Dr. Rosa Tran JOSE LUIS Negative Normal NEGATIVE [facility] [facility] Comment on above: Performed By: #### C VDTBH #### [facility] Laboratory [address] [place] [address] Dr. Rosa Tran CUT-OFFS SEE BELOW Normal The [facility] Comment on above: Result Comment: AMP (Amphetamine): 500ng/mL, BAR (Barbituates): 200 ng/mL, BZO (Benzodiazepines): 150 ng/mL, BUP (Buprenorphine): 10 ng/mL, JOSE LUIS (Cocaine): 150 ng/mL, mAMP (Methamphetamine): 500 ng/mL, MTD (Methadone): 200 ng/mL, OPI (Opiates): 100 ng/mL, OXY (Oxycodone): 100 ng/mL, PCP (Phencyclidine): 25 ng/mL, PPX (Propoxyphene): 300 ng/mL, THC (Cannabinoids): 50 ng/mL, TCA (Trycyclic Antidepressants): 300 ng/mL Performed By: #### C VDTBH #### [facility] [address] [place] [address] Dr. Rosa Tran DRUG CUT HEADER DRUG CLASS TEST SYST EM CUT-OFF CONCENTRATIONS ARE FOLLOWS: Normal [facility] Comment on above: Performed By: #### C VDTBH #### [facility] [address] [place] [address] Dr. Rosa Tran mAMP Negative Normal NEGATIVE [facility] Comment on above: Performed By: #### C VDTBH #### [facility] [address] [place] [address] Dr. Rosa Tran MTD Negative Normal NEGATIVE [facility] Comment on above: Performed By: #### C VDTBH #### [facility] [address] [place] [address] Dr. Rosa Tran OPI Negative Normal NEGATIVE [facility] Comment on above: Performed By: #### C VDTBH #### [facility] [address] [place] [address] Dr. Rosa Tran OXY Negative Normal NEGATIVE The [facility] Comment on above: Performed By: #### C VDTBH #### [facility] [address] [place] [address] Dr. Rosa Tran PCP Negative Normal NEGATIVE [facility] Comment on above: Performed By: #### C VDTBH #### [facility] [address] [place] [address] Dr. Rosa Tran PPX Negative Normal NEGATIVE [facility] Comment on above: Performed By: #### C VDTBH #### [facility] [address] [place] [address] Dr. Rosa Tran TCA Positive Abnormal NEGATIVE [facility] Comment on above: Performed By: #### C VDTBH #### [facility] [address] [address] [address] Rosa Tran THC Positive Abnormal NEGATIVE The [facility] Comment on above: Performed By: #### C VDTBH #### [facility] [address] [address] [address] Rosa Tran LACTATE/LACTIC ACIDon 2022 Lactate [Moles/Vol] 1.4 mmol/L Normal 0.4-2.0 The [facility] Comment on above: Performed By: #### C VDTBH #### [facility] [address] [address] [address] Rosa Tran LIPASEon 10-11-2022 Lipase [Catalytic activity/Vol] 56.0 U/L Critically low 73.0-393.0 The [facility] Comment on above: Performed By: #### C MP, LIPA ####[facility] [address] [address]DrArgelia Tran PROF 14(COMP METB)on 023 Albumin [Mass/Vol] 3.5 g/dL Normal 3.4-5.0 The [facility] Comment on above: Performed By: #### C MP, LIPA ####[facility] [address] [address]DrArgelia Tran Albumin/Globulin [Mass ratio] 1.2 {ratio} Normal The [facility] Comment on above: Performed By: #### C MP, LIPA ####[facility] [address] [address]Dr. Rosa Tran ALP [Catalytic activity/Vol] 72 U/L Normal 46-116 The [facility] Comment on above: Performed By: #### C MP, LIPA ####[facility] [address] [address]Dr. Rosa Tran ALT [Catalytic activity/Vol] 27 U/L Normal 16-63 The [facility] Comment on above: Performed By: #### C MP, LIPA ####[facility] [address] [address]DrArgelia Tran Anion gap [Moles/Vol] 11.9 mmol/L Normal The [facility] Comment on above: Performed By: #### C MP, LIPA ####[facility] [address] [place], [place] [address]Dr. Rosa Tran AST [Catalytic activity/Vol] 22 U/L Normal 15-37 The [facility] Comment on above: Performed By: #### C MP, LIPA ####[facility] [address] [place], [place] [address]Dr. Rosa Tran Bilirubin [Mass/Vol] 0.3 mg/dL Normal 0.2-1.0 The [facility] Comment on above: Performed By: #### C MP, LIPA ####[facility] [address] [place], [place] [address]Dr. Rosa Tran Calcium [Mass/Vol] 8.5 mg/dL Normal 8.5-10.1 The [facility] Comment on above: Performed By: #### C LEYDI, LIPA ####[facility] [address] [place], [place] [address]Dr. Rosa Tran Chloride [Moles/Vol] 108 mmol/L Critically high 98-107 The [facility] Comment on above: Performed By: #### C LEYDI, LIPA ####[facility] [address] [place], [place] [address]Dr. Rosa Tran CO2 [Moles/Vol] 26.9 mmol/L Normal 21.0-32.0 The [facility] Comment on above: Performed By: #### C MP, LIPA ####[facility] [address] [place], [place] [address]Dr. Rosa Tran Creatinine [Mass/Vol] 0.69 mg/dL Critically low 0.70-1.30 The [facility] Comment on above: Performed By: #### C MP, LIPA ####[facility] [address] [place], [place] [address]Dr. Rosa Tran EGFR-AF SENEGALESE >60 Normal >=60 The [facility] Comment on above: Performed By: #### C MP, LIPA ####[facility] [address] [place], [place] [address]Dr. Rosa Tran EGFR-NON AF SENEGALESE >60 Normal >=60 The [facility] Comment on above: Performed By: #### C LEYDI, LIPA ####[facility] [address] [address]Dr. Rosa Tran Globulin (S) [Mass/Vol] 2.9 g/dL Normal The [facility] Comment on above: Performed By: #### C MP, LIPA ####[facility] [address] [place], [place] [address]Dr. Rosa Tran Glucose [Mass/Vol] 113 mg/dL Critically high 74-106 The [facility] Comment on above: Performed By: #### C LEYDI, LIPA ####[facility] [address] [place], [place] [address]Dr. Rosa Tran Potassium [Moles/Vol] 3.8 mmol/L Normal 3.5-5.1 The [facility] Comment on above: Performed By: #### C LEYDI, LIPA ####[facility] [address] [place], [place] [address]Dr. Rosa Tran Protein [Mass/Vol] 6.4 g/dL Normal 6.4-8.2 The [facility] Comment on above: Performed By: #### C LEYDI, LIPA ####[facility] [address] [place], [place] [address]Dr. Rosa Tran Sodium [Moles/Vol] 143 mmol/L Normal 136-145 The [facility] Comment on above: Performed By: #### C MP, LIPA ####[facility] [address] [place], [place] [address]Dr. Rosa Tran Urea nitrogen [Mass/Vol] 8.0 mg/dL Normal 7.0-18.0 The [facility] Comment on above: Performed By: #### C MP, LIPA ####[facility] [address] [place], [place] [address]Dr. Rosa Tran Urea nitrogen/Creatini ne [Mass ratio] 11.6 mg/mg Normal The [facility] Comment on above: Performed By: #### C MP, LIPA ####[facility] [address] [place], [place] [address]Dr. Rosa Tran Albumin [Mass/Vol] 3.2 g/dL Critically low 3.4-5.0 The [facility] Comment on above: Performed By: #### C VDTBH #### [facility] [address] [address] [address] Rosa Tran Albumin/Globulin [Mass ratio] 1.2 {ratio} Normal The [facility] Comment on above: Performed By: #### C VDTBH #### [facility] [address] [address] [address] Rosa Tarn ALP [Catalytic activity/Vol] 75 U/L Normal 46-116 The [facility] Comment on above: Performed By: #### C VDTBH #### [facility] [address] [address] [address] Rosa Tran ALT [Catalytic activity/Vol] 24 U/L Normal 16-63 The [facility] Comment on above: Performed By: #### C VDTBH #### [facility] [address] [address] [address] Rosa Tran Anion gap [Moles/Vol] 10.7 mmol/L Normal [facility] Comment on above: Performed By: #### C VDTBH #### [facility] [address] [address] [address] Rosa Tran AST [Catalytic activity/Vol] 18 U/L Normal 15-37 The [facility] Comment on above: Performed By: #### C VDTBH #### [facility] [address] [address] [address] Rosa Tran Bilirubin [Mass/Vol] 0.4 mg/dL Normal 0.2-1.0 The [facility] Comment on above: Performed By: #### C VDTBH #### [facility] [address] [address] [address] Rosa Tran Calcium [Mass/Vol] 8.2 mg/dL Critically low 8.5-10.1 The [facility] Comment on above: Performed By: #### C VDTBH #### [facility] [address] [address] [address] Rosa Tran Chloride [Moles/Vol] 106 mmol/L Normal 98-107 The [facility] Comment on above: Performed By: #### C VDTBH #### [facility] [address] [place] [address] Dr. Rosa Tran CO2 [Moles/Vol] 24.8 mmol/L Normal 21.0-32.0 The [facility] Comment on above: Performed By: #### C VDTBH #### [facility] [address] [place] [address] Dr. Rosa Tran Creatinine [Mass/Vol] 0.74 mg/dL Normal 0.70-1.30 The [facility] Comment on above: Performed By: #### C VDTBH #### [facility] [address] [place] [address] Dr. Rosa Tran EGFR-AF SENEGALESE >60 Normal >=60 The [facility] Comment on above: Performed By: #### C VDTBH #### [facility] [address] [place] [address] Dr. Rosa Tran EGFR-NON AF SENEGALESE >60 Normal >=60 The [facility] Comment on above: Performed By: #### C VDTBH #### [facility] [address] [place] [address] Dr. Rosa Tran Globulin (S) [Mass/Vol] 2.7 g/dL Normal The [facility] Comment on above: Performed By: #### C VDTBH #### [facility] [address] [place] [address] Dr. Rosa Tran Glucose [Mass/Vol] 111 mg/dL Critically high 74-106 The [facility] Comment on above: Performed By: #### C VDTBH #### [facility] [address] [place] [address] Dr. Rosa Tran Potassium [Moles/Vol] 3.5 mmol/L Normal 3.5-5.1 The [facility] Comment on above: Performed By: #### C VDTBH #### [facility] [address] [place] [address] Dr. Rosa Tran Protein [Mass/Vol] 5.9 g/dL Critically low 6.4-8.2 [facility] Comment on above: Performed By: #### C VDTBH #### [facility] [address] [address] [address] Rosa Tran Sodium [Moles/Vol] 138 mmol/L Normal 136-145 The [facility] Comment on above: Performed By: #### C VDTBH #### [facility] [address] [address] [address] Rosa Tran Urea nitrogen [Mass/Vol] 9.0 mg/dL Normal 7.0-18.0 [facility] Comment on above: Performed By: #### C VDTBH #### [facility] [address] [place] [address] Dr. Rosa Tran Urea nitrogen/Creatini ne [Mass ratio] 12.2 mg/mg Normal [facility] Comment on above: Performed By: #### C VDTBH #### [facility] [address] [place] [address] Dr. Rosa Tran AMYLASEon 10-10-2022 Amylase [Catalytic activity/Vol] 75 U/L Normal 25-115 The [facility] Comment on above: Performed By: #### A MY, CMP, LIPA ####[facility] [address] [address]Dr. Rosa Tran CBC AUTO DIFFon 10-10-2022 BASO # 0.1 103/ul Normal 0.0-0.1 [facility] Comment on above: Performed By: #### C BC #### [facility] [address] [place] [address] Dr. Rosa Tran Basophils/100 WBC (Bld) 0.5 % Normal 0.2-2.0 The [facility] Comment on above: Performed By: #### C BC #### [facility] [address] [place] [address] Dr. Rosa Tran EO # 0.2 103/ul Normal 0.0-0.7 The [facility] Comment on above: Performed By: #### C BC #### [facility] [address] [place] [address] Dr. Rosa Tran Eosinophils/100 WBC (Bld) 1.4 % Normal 0.9-7.0 The [facility] Comment on above: Performed By: #### C BC #### [facility] [address] [place] [address] Dr. Rosa Tran Erythrocyte distribution width (RBC) [Ratio] 13.2 % Normal 11.0-15.0 The [facility] Comment on above: Performed By: #### C BC #### [facility] [address] [place] [address] Dr. Rosa Tran Hematocrit (Bld) [Volume fraction] 42.7 % Normal 42.0-54.0 The [facility] Comment on above: Performed By: #### C BC #### [facility] [address] [place] [address] Dr. Rosa Tran Hemoglobin (Bld) [Mass/Vol] 14.5 g/dL Normal 14.0-18.0 The [facility] Comment on above: Performed By: #### C BC #### [facility] [address] [place] [address] Dr. Rosa Tran IG # 0.03 10e3/ul Normal 0.00-0.03 The [facility] Comment on above: Performed By: #### C BC #### [facility] [address] [place] [address] Dr. Rosa Tran IG % 0.2 % Normal 0.0-0.5 The [facility] Comment on above: Performed By: #### C BC #### [facility] [address] [place] [address] Dr. Rosa Tran LYMPH # 2.0 103/ul Normal 1.2-3.8 The [facility] Comment on above: Performed By: #### C BC #### [facility] [address] [place] [address] Dr. Rosa Tran Lymphocytes/100 WBC (Bld) 16.1 % Critically low 20.5-60.0 The [facility] Comment on above: Performed By: #### C BC #### [facility] [address] [place] [address] Dr. Rosa Tran MANUAL DIFF REQ NO Normal [facility] Comment on above: Performed By: #### C BC #### [facility] [address] [place] [address] Dr. Rosa Tran MCH (RBC) [Entitic mass] 30.4 pg Normal 25.9-34.0 [facility] Comment on above: Performed By: #### C BC #### [facility] [address] [place] [address] Dr. Rosa Tran MCHC (RBC) [Mass/Vol] 34.0 g/dL Normal 29.9-35.2 The [facility] Comment on above: Performed By: #### C BC #### [facility] [address] [place] [address] Dr. Rosa Tran MCV (RBC) [Entitic vol] 89.5 fL Normal 80.0-94.0 [facility] Comment on above: Performed By: #### C BC #### [facility] [address] [place] [address] Dr. Rosa Tran MONO # 0.6 103/ul Normal 0.3-0.8 The [facility] Comment on above: Performed By: #### C BC #### [facility] [address] [place] [address] Dr. Rosa Tran Monocytes/100 WBC (Bld) 4.6 % Normal 1.7-12.0 The [facility] Comment on above: Performed By: #### C BC #### [facility] [address] [place] [address] Dr. Rosa Tran NEUT # 9.7 103/ul Critically high 1.4-6.5 The [facility] Comment on above: Performed By: #### C BC #### [facility] [address] [place] [address] Dr. Rosa Tran Neutrophils/100 WBC (Bld) 77.2 % Critically high 43.0-75.0 The [facility] Comment on above: Performed By: #### C BC #### [facility] [address] [place] [address] Dr. Rosa Tran Platelet mean volume (Bld) [Entitic vol] 9.7 fL Normal 9.5-13.5 The [facility] Comment on above: Performed By: #### C BC #### [facility] [address] [place] [address] Dr. Rosa Tran PLT 284 103/ul Normal 150-450 The [facility] Comment on above: Performed By: #### C BC #### [facility] [address] [address] [address] Rosa Tran RBC 4.77 106/ul Normal 4.70-6.10 The [facility] Comment on above: Performed By: #### C BC #### [facility] [address] [place] [address] Dr. Rosa Tran WBC 12.5 103/ul Critically high 4.0-11.0 The [facility] Comment on above: Performed By: #### C BC #### [facility] [address] [place] [address] Dr. Rosa Tran Covid-19 PCR (CVDTB)on 10-01 SARS-CoV-2 (COVID-19) RNA VIKAS+probe Ql (Unsp spec) Not detected Normal NOT DETECTED The [facility] Comment on above: Result Comment: When diagnostic testing is negative, the possibility of a false negative should be considered in the context of a patient's recent exposures and the presence of clinical signs and symptoms consistent with SARS-CoV-2. This test is not yet approved or cleared by the [place] FDA. When there are no FDA-approved or cleared tests available, and other criteria are met, FDA can make tests available under an emergency access mechanism called an Emergency Use Authorization (EUA). The EUA for this test is supported by the [place] of Health and Human Service's declaration that circumstances exist to justify the emergency use of in vitro diagnostics for the detection and/or diagnosis of the virus that causes COVID-19. This EUA will remain in effect for the duration of the COVID-19 declaration justifying emergency of IVDs, unless it is terminated or revoked by the FDA (after which the test may no longer be used). Performed By: #### C VDTBH #### [facility] [address] [address] [address] Rosa Tran DRUG SCREEN RAPID (URINE)on 10-10-2022 AMP Negative Normal NEGATIVE The [facility] Comment on above: Performed By: #### D RUGRPD ####[facility] [address] [address]Dr[address] Rosa Tran BAR Negative Normal NEGATIVE The [facility] Comment on above: Performed By: #### D RUGRPD ####[facility] [address] [address]Dr[address] Rosa Tran BUP Negative Normal NEGATIVE The [facility] Comment on above: Performed By: #### D RUGRPD ####[facility] [address] [address]Dr. Rosa Tran BZO Negative Normal NEGATIVE The [facility] Comment on above: Performed By: #### D RUGRPD ####[facility] [address] [address]Dr. Rosa Tran JOSE LUIS Negative Normal NEGATIVE The [facility] Comment on above: Performed By: #### D RUGRPD ####[facility] [address] [address]Dr[address] Rosa Tran CUT-OFFS SEE BELOW Normal The [facility] Comment on above: Result Comment: AMP (Amphetamine): 500ng/mL, BAR (Barbituates): 200 ng/mL, BZO (Benzodiazepines): 150 ng/mL, BUP (Buprenorphine): 10 ng/mL, JOSE LUIS (Cocaine): 150 ng/mL, mAMP (Methamphetamine): 500 ng/mL, MTD (Methadone): 200 ng/mL, OPI (Opiates): 100 ng/mL, OXY (Oxycodone): 100 ng/mL, PCP (Phencyclidine): 25 ng/mL, PPX (Propoxyphene): 300 ng/mL, THC (Cannabinoids): 50 ng/mL, TCA (Trycyclic Antidepressants): 300 ng/mL Performed By: #### D RUGRPD ####[facility] Kfldrfmu[address] [place], [place] [address]Dr. Rosa Tran DRUG CUT HEADER DRUG CLASS TEST SYST EM CUT-OFF CONCENTRATIONS ARE FOLLOWS: Normal The [facility] Comment on above: Performed By: #### D RUGRPD ####[facility] [address] [address]Dr. Rosa Tran mAMP Negative Normal NEGATIVE The [facility] Comment on above: Performed By: #### D RUGRPD ####[facility] [address] [address]Dr. Rosa Tran MTD Negative Normal NEGATIVE The [facility] Comment on above: Performed By: #### D RUGRPD ####[facility] [address]or[address] [address]Dr. Rosa Tran OPI Negative Normal NEGATIVE The [facility] Comment on above: Performed By: #### D RUGRPD ####[facility] [address] [place], [place] [address]Dr. Rosa Tran OXY Negative Normal NEGATIVE The [facility] Comment on above: Performed By: #### D RUGRPD ####[facility] Gbeeblpnqw[address] [place], [place] [address]Dr. Rosa Tran PCP Negative Normal NEGATIVE The [facility] Comment on above: Performed By: #### D RUGRPD ####[facility] [address] [place], [place] [address]Dr. Rosa Tran PPX Negative Normal NEGATIVE The [facility] Comment on above: Performed By: #### D RUGRPD ####[facility] [address] [place], [place] [address]Dr. Rosa Tran TCA Positive Abnormal NEGATIVE The [facility] Comment on above: Performed By: #### D RUGRPD ####[facility] [address] [address]Dr. Rosa Tran THC Positive Abnormal NEGATIVE The [facility] Comment on above: Performed By: #### D RUGRPD ####[facility] [address] [place], [place] [address]Dr. Rosa Tran LACTATE/LACTIC ACIDon 2022 Lactate [Moles/Vol] 1.8 mmol/L Normal 0.4-2.0 The [facility] Comment on above: Performed By: #### L ACT ####[facility] [address] [address]Dr. Rosa Tran LIPASEon 10-10-2022 Lipase [Catalytic activity/Vol] 84.0 U/L Normal 73.0-393.0 [facility] Comment on above: Performed By: #### A MY, CMP, LIPA ####[facility] [address] [address]Dr. Rosa Tran PROF 14(COMP METB)on 023 Albumin [Mass/Vol] 4.2 g/dL Normal 3.4-5.0 [facility] Comment on above: Performed By: #### C VDTBH #### [facility] Laboratory [address] [place] [address] Dr. Rosa Tran Albumin/Globulin [Mass ratio] 1.3 {ratio} Normal [facility] Comment on above: Performed By: #### C VDTBH #### [facility] Laboratory [address] [place] [address] Dr. Rosa Tran ALP [Catalytic activity/Vol] 104 U/L Normal 46-116 The [facility] Comment on above: Performed By: #### C VDTBH #### [facility] Laboratory [address] [place] [address] Dr. Rosa Tran ALT [Catalytic activity/Vol] 32 U/L Normal 16-63 The [facility] Comment on above: Performed By: #### C VDTBH #### [facility] Laboratory [address] [address] [address] Rosa Tran Anion gap [Moles/Vol] 12.6 mmol/L Normal [facility] Comment on above: Performed By: #### C VDTBH #### [facility] Laboratory [address] [place] [address] Dr. Rosa Tran AST [Catalytic activity/Vol] 18 U/L Normal 15-37 [facility] Comment on above: Performed By: #### C VDTBH #### [facility] Laboratory [address] [place] [address] Dr. Rosa Tran Bilirubin [Mass/Vol] 0.3 mg/dL Normal 0.2-1.0 [facility] Comment on above: Performed By: #### C VDTBH #### [facility] Laboratory [address] [place] [address] Dr. Rosa Tran Calcium [Mass/Vol] 9.3 mg/dL Normal 8.5-10.1 The [facility] Comment on above: Performed By: #### C VDTBH #### [facility] Laboratory [address] [place] [address] Dr. Rosa Tran Chloride [Moles/Vol] 104 mmol/L Normal 98-107 The [facility] Comment on above: Performed By: #### C VDTBH #### [facility] Laboratory [address] [place] [address] Dr. Rosa Tran CO2 [Moles/Vol] 26.2 mmol/L Normal 21.0-32.0 The [facility] Comment on above: Performed By: #### C VDTBH #### [facility] Laboratory [address] [place] [address] Dr. Rosa Tran Creatinine [Mass/Vol] 1.00 mg/dL Normal 0.70-1.30 The [facility] Comment on above: Performed By: #### C VDTBH #### [facility] Laboratory [address] [place] [address] Dr. Rosa Tran EGFR-AF SENEGALESE >60 Normal >=60 The [facility] Comment on above: Performed By: #### C VDTBH #### [facility] Laboratory [address] [place] [address] Dr. Rosa Tran EGFR-NON AF S[place]ESE >60 Normal >=60 The [facility] Comment on above: Performed By: #### C VDTBH #### [facility] Laboratory [address] [place] [address] Dr. Rosa Tran Globulin (S) [Mass/Vol] 3.3 g/dL Normal The [facility] Comment on above: Performed By: #### C VDTBH #### [facility] Laboratory [address] [place] [address] Dr. Rosa Tran Glucose [Mass/Vol] 136 mg/dL Critically high 74-106 The [facility] Comment on above: Performed By: #### C VDTBH #### [facility] Laboratory [address] [address] [address] Rosa Tran Potassium [Moles/Vol] 3.8 mmol/L Normal 3.5-5.1 [facility] Comment on above: Performed By: #### C VDTBH #### [facility] Laboratory [address] [place] [address] Dr. Rosa Tran Protein [Mass/Vol] 7.5 g/dL Normal 6.4-8.2 [facility] Comment on above: Performed By: #### C VDTBH #### [facility] Laboratory [address] [place] [address] Dr. Rosa Tran Sodium [Moles/Vol] 139 mmol/L Normal 136-145 [facility] Comment on above: Performed By: #### C VDTBH #### [facility] Laboratory [address] [place] [address] Dr. Rosa Tran Urea nitrogen [Mass/Vol] 11.0 mg/dL Normal 7.0-18.0 [facility] Comment on above: Performed By: #### C VDTBH #### [facility] Laboratory [address] [place] [address] Dr. Rosa Tran Urea nitrogen/Creatini ne [Mass ratio] 11.0 mg/mg Normal [facility] Comment on above: Performed By: #### C VDTBH #### [facility] Laboratory [address] [place] [address] Dr. Rosa Tran XR ABD FLAT UP_PA Parish 10-10 XR ABD FLAT UP_PA CH EXAM: XR ABD FLAT UP_PA CH HISTORY: NAUSEA WITH VOMITING, UNSPECIFIED COMPARISON: 08/12/2022.. TECHNIQUE: Chest X-ray, 1 view. Abdominal x-ray, 1 view. FINDINGS: Support devices: None. Bowel: Unremarkable bowel gas pattern. No bowel dilatation. Moderate volume stool throughout much the colon. Additional findings: None. IMPRESSION: No acute abnormality on radiographic exam. Moderate volume stool throughout colon. Electronically authenticated by: GUERA HUNTER Date: 2022-10-10 05:31 Normal The [facility] US VENOUS DOPPLER R Jerry US VENOUS DOPPLER R ARM EXAMINATION: US VENOUS DOPPLER R ARM HISTORY: Pain of right forearm ; right forearm pain and swelling since having IV 2 months ago COMPARISON: No relevant comparison available. FINDINGS: REGION: Right upper extremity THROMBI: None within deep system. COMPRESSIBILITY: Normal compressibility of deep system. FLOW: Normal waveform and antegrade flow between 5 and 20 cm/s. OTHER: Small, difficult to evaluate basilic vein within the upper forearm, but suspected to be thrombosed. IMPRESSION: 1. No deep vein thrombus within the right upper extremity. 2. Suspect thrombosis of superficial basilic vein within forearm. Electronically authenticated by: MISAEL DENNY Date: 2022-10-07 11:01 Normal The [facility] AMMONIAon 08-14-2022 Ammonia (P) [Moles/Vol] 50 umol/L Critically high The [facility] Comment on above: Performed By: #### A MM #### [facility] Laboratory [address] [address] [address] Rosa Tran AMYLASEon 08-14-2022 Amylase [Catalytic activity/Vol] 39 U/L Normal 25-115 The [facility] Comment on above: Performed By: #### A MY, CMP, LIPA ####[facility] [address] [address]Dr. Rosa Tran CBC AUTO DIFFon 08-14-2022 BASO # 0.1 103/ul Normal 0.0-0.1 The [facility] Comment on above: Performed By: #### C BC ####[facility] [address] [address]Dr. Rosa Tran Basophils/100 WBC (Bld) 0.7 % Normal 0.2-2.0 The [facility] Comment on above: Performed By: #### C BC ####[facility] [address] [address]Dr. Rosa Tran EO # 0.1 103/ul Normal 0.0-0.7 The [facility] Comment on above: Performed By: #### C BC ####[facility] [address] [address]Dr. Rosa Tran Eosinophils/100 WBC (Bld) 0.7 % Critically low 0.9-7.0 The [facility] Comment on above: Performed By: #### C BC ####[facility] [address] [address]Dr. Rosa Tran Erythrocyte distribution width (RBC) [Ratio] 13.2 % Normal 11.0-15.0 The [facility] Comment on above: Performed By: #### C BC ####[facility] [address] [address]Dr. Rosa Tran Hematocrit (Bld) [Volume fraction] 33.1 % Critically low 42.0-54.0 The [facility] Comment on above: Performed By: #### C BC ####[facility] [address] [place], [place] [address]Dr. Rosa Tran Hemoglobin (Bld) [Mass/Vol] 11.2 g/dL Critically low 14.0-18.0 The [facility] Comment on above: Performed By: #### C BC ####[facility] [address]vwp[address] [place], [place] [address]Dr. Rosa Tran IG # 0.02 10e3/ul Normal 0.00-0.03 The [facility] Comment on above: Performed By: #### C BC ####[facility] Cdqvnzelaf[address] [place], [place] [address]Dr. Rosa Tran IG % 0.3 % Normal 0.0-0.5 The [facility] Comment on above: Performed By: #### C BC ####[facility] Q[address]rzxtj[address] [place], [place] [address]Dr. Rosa Tran LYMPH # 2.9 103/ul Normal 1.2-3.8 The [facility] Comment on above: Performed By: #### C BC ####[facility] [address] [place], [place] [address]Dr. Rosa Tran Lymphocytes/100 WBC (Bld) 39.6 % Normal 20.5-60.0 The [facility] Comment on above: Performed By: #### C BC ####[facility] [address] [address]Dr. Rosa Marc MANUAL DIFF REQ NO Normal [facility] Comment on above: Performed By: #### C BC ####[facility] [address]xcakuz[address] [address]Dr. Rosa Tran MCH (RBC) [Entitic mass] 30.6 pg Normal 25.9-34.0 The [facility] Comment on above: Performed By: #### C BC ####[facility] [address]hrn[address] [place], [place] [address]Dr. Rosa Marc MCHC (RBC) [Mass/Vol] 33.8 g/dL Normal 29.9-35.2 The [facility] Comment on above: Performed By: #### C BC ####[facility] [address]ffx[address] [place], [place] [address]Dr. Robynyoselin Tran MCV (RBC) [Entitic vol] 90.4 fL Normal 80.0-94.0 The [facility] Comment on above: Performed By: #### C BC ####[facility] [address]ow[address] [place], [place] [address]Dr. Rosa Marc MONO # 0.6 103/ul Normal 0.3-0.8 The [facility] Comment on above: Performed By: #### C BC ####[facility] [address] [place], [place] [address]Dr. Rosa Tran Monocytes/100 WBC (Bld) 7.6 % Normal 1.7-12.0 The [facility] Comment on above: Performed By: #### C BC ####[facility] [address] [place], [place] [address]Dr. Robynyoselin Marc NEUT # 3.8 103/ul Normal 1.4-6.5 The [facility] Comment on above: Performed By: #### C BC ####[facility] Ltrnolmmmy[address] [place], [place] [address]Dr. Rosa Tran Neutrophils/100 WBC (Bld) 51.1 % Normal 43.0-75.0 The [facility] Comment on above: Performed By: #### C BC ####[facility] [address] [place], [place] [address]Dr. Rosa Tran Platelet mean volume (Bld) [Entitic vol] 9.7 fL Normal 9.5-13.5 The [facility] Comment on above: Performed By: #### C BC ####[facility] [address] [address]Dr. Rosa Tran PLT 208 103/ul Normal 150-450 The [facility] Comment on above: Performed By: #### C BC ####[facility] [address] [address]Dr. Rosa Tran RBC 3.66 106/ul Critically low 4.70-6.10 [facility] Comment on above: Performed By: #### C BC ####[facility] [address] [address]Dr. Rosa Tran WBC 7.3 103/ul Normal 4.0-11.0 The [facility] Comment on above: Performed By: #### C BC ####[facility] [address]is[address] [address]Dr. Rosa Marc LIPASEon 08-14-2022 Lipase [Catalytic activity/Vol] 60.0 U/L Critically low 73.0-393.0 The [facility] Comment on above: Performed By: #### A MY, CMP, LIPA ####[facility] [address] [address]Dr. Robynyoselin Tran PROF 14(COMP METB)on 023 Albumin [Mass/Vol] 2.9 g/dL Critically low 3.4-5.0 The [facility] Comment on above: Performed By: #### A MY, CMP, LIPA ####[facility] [address] [address]Dr. Rosa Tran Albumin/Globulin [Mass ratio] 1.2 {ratio} Normal The [facility] Comment on above: Performed By: #### A MY, CMP, LIPA ####[facility] [address]rp[address] [address]Dr. Robynyoselin Tran ALP [Catalytic activity/Vol] 64 U/L Normal 46-116 The [facility] Comment on above: Performed By: #### A MY, CMP, LIPA ####[facility] [address] [address]Dr. Rosa Tran ALT [Catalytic activity/Vol] 41 U/L Normal 16-63 The [facility] Comment on above: Performed By: #### A MY, CMP, LIPA ####[facility] [address] [address]Dr. Rosa Tran Anion gap [Moles/Vol] 8.7 mmol/L Normal The [facility] Comment on above: Performed By: #### A MY, CMP, LIPA ####[facility] [address]ip[address] [place], [place] [address]Dr. Rosa Tran AST [Catalytic activity/Vol] 31 U/L Normal 15-37 The [facility] Comment on above: Performed By: #### A MY, CMP, LIPA ####[facility] [address] [place], [place] [address]Dr. Rosa Tran Bilirubin [Mass/Vol] 0.5 mg/dL Normal 0.2-1.0 The [facility] Comment on above: Performed By: #### A MY, CMP, LIPA ####[facility] [address] [place], [place] [address]Dr. Rosa Tran Calcium [Mass/Vol] 8.3 mg/dL Critically low 8.5-10.1 The [facility] Comment on above: Performed By: #### A MY, CMP, LIPA ####[facility] [address] [address]Dr. Rosa Tran Chloride [Moles/Vol] 110 mmol/L Critically high 98-107 The [facility] Comment on above: Performed By: #### A MY, CMP, LIPA ####[facility] [address]ur[address] [place], [place] [address]Dr. Rosa Tran CO2 [Moles/Vol] 27.0 mmol/L Normal 21.0-32.0 The [facility] Comment on above: Performed By: #### A MY, CMP, LIPA ####[facility] [address]bzqsq[address] [place], [place] [address]Dr. Rosa Tran Creatinine [Mass/Vol] 0.77 mg/dL Normal 0.70-1.30 The [facility] Comment on above: Performed By: #### A MY, CMP, LIPA ####[facility] [address] [address]Dr. Rosa Tran EGFR-AF SENEGALESE >60 Normal >=60 The [facility] Comment on above: Performed By: #### A MY, CMP, LIPA ####[facility] [address]irts[address] [address]Dr. Rosa Tran EGFR-NON AF S[place]ESE >60 Normal >=60 The [facility] Comment on above: Performed By: #### A MY, CMP, LIPA ####[facility] [address]we[address] [address]Dr. Rosa Tran Globulin (S) [Mass/Vol] 2.4 g/dL Normal The [facility] Comment on above: Performed By: #### A MY, CMP, LIPA ####[facility] [address]qt[address] [address]Dr. Rosa Tran Glucose [Mass/Vol] 128 mg/dL Critically high 74-106 The [facility] Comment on above: Performed By: #### A MY, CMP, LIPA ####[facility] [address] [address]Dr. Rosa Tran Potassium [Moles/Vol] 3.6 mmol/L Normal 3.5-5.1 The [facility] Comment on above: Performed By: #### A MY, CMP, LIPA ####[facility] [address] [address]Dr. Rosa Tran Protein [Mass/Vol] 5.3 g/dL Critically low 6.4-8.2 The [facility] Comment on above: Performed By: #### A MY, CMP, LIPA ####[facility] [address]ts[address] [address]Dr. Rosa Tran Sodium [Moles/Vol] 142 mmol/L Normal 136-145 The [facility] Comment on above: Performed By: #### A MY, CMP, LIPA ####[facility] [address]fu[address] [address]Dr. Rosa Tran Urea nitrogen [Mass/Vol] 6.0 mg/dL Critically low 7.0-18.0 The [facility] Comment on above: Performed By: #### A MY, CMP, LIPA ####[facility] [address]ies[address] [address]Dr. Rosa Tran Urea nitrogen/Creatini ne [Mass ratio] 7.8 mg/mg Normal The [facility] Comment on above: Performed By: #### A MY, CMP, LIPA ####[facility] [address] [address]Dr. Rosa Tran AMMONIAon 08-13-2022 Ammonia (P) [Moles/Vol] 37 umol/L Critically high -32 [facility] Comment on above: Performed By: #### C VDTB #### [facility] Laboratory [address] [place] [address] Dr. Rosa Tran AMYLASEon 08-13-2022 Amylase [Catalytic activity/Vol] 42 U/L Normal 25-115 The [facility] Comment on above: Performed By: #### A MY, LIPA, CMP ####[facility] [address] [place], [place] [address]Dr. Rosa Tran CBC AUTO DIFFon 08-13-2022 BASO # 0.0 103/ul Normal 0.0-0.1 The [facility] Comment on above: Performed By: #### C VDTBH #### [facility] Laboratory [address] [place] [address] Dr. Rosa Tran Basophils/100 WBC (Bld) 0.3 % Normal 0.2-2.0 The [facility] Comment on above: Performed By: #### C VDTBH #### [facility] Laboratory [address] [place] [address] Dr. Rosa Tran EO # 0.0 103/ul Normal 0.0-0.7 The [facility] Comment on above: Performed By: #### C VDTBH #### [facility] Laboratory [address] [place] [address] Dr. Rosa Tran Eosinophils/100 WBC (Bld) 0.1 % Critically low 0.9-7.0 [facility] Comment on above: Performed By: #### C VDTBH #### [facility] Laboratory [address] [place] [address] Dr. Rosa Tran Erythrocyte distribution width (RBC) [Ratio] 13.2 % Normal 11.0-15.0 The [facility] Comment on above: Performed By: #### C VDTBH #### [facility] Laboratory [address] [place] [address] Dr. Rosa Tran Hematocrit (Bld) [Volume fraction] 32.5 % Critically low 42.0-54.0 [facility] Comment on above: Performed By: #### C VDTBH #### [facility] Laboratory [address] [place] [address] Dr. Rosa Tran Hemoglobin (Bld) [Mass/Vol] 11.3 g/dL Critically low 14.0-18.0 [facility] Comment on above: Performed By: #### C VDTBH #### [facility] Laboratory [address] [place] [address] Dr. Rosa Tran IG # 0.02 10e3/ul Normal 0.00-0.03 [facility] Comment on above: Performed By: #### C VDTBH #### [facility] Laboratory [address] [place] [address] Dr. Rosa Tran IG % 0.3 % Normal 0.0-0.5 The [facility] Comment on above: Performed By: #### C VDTBH #### [facility] Laboratory [address] [place] [address] Dr. Rosa Tran LYMPH # 1.8 103/ul Normal 1.2-3.8 The [facility] Comment on above: Performed By: #### C VDTBH #### [facility] Laboratory [address] [place] [address] Dr. Rosa Tran Lymphocytes/100 WBC (Bld) 23.0 % Normal 20.5-60.0 The [facility] Comment on above: Performed By: #### C VDTBH #### [facility] Laboratory [address] [place] [address] Dr. Rosa Tran MANUAL DIFF REQ NO Normal [facility] Comment on above: Performed By: #### C VDTBH #### [facility] Laboratory [address] [place] [address] Dr. Rosa Tran MCH (RBC) [Entitic mass] 31.5 pg Normal 25.9-34.0 [facility] Comment on above: Performed By: #### C VDTBH #### [facility] Laboratory [address] [place] [address] Dr. Rosa Tran MCHC (RBC) [Mass/Vol] 34.8 g/dL Normal 29.9-35.2 The [facility] Comment on above: Performed By: #### C VDTBH #### [facility] Laboratory [address] [place] [address] Dr. Rosa Tran MCV (RBC) [Entitic vol] 90.5 fL Normal 80.0-94.0 [facility] Comment on above: Performed By: #### C VDTBH #### [facility] Laboratory [address] [place] [address] Dr. Rosa Tran MONO # 0.5 103/ul Normal 0.3-0.8 [facility] Comment on above: Performed By: #### C VDTBH #### [facility] Laboratory [address] [place] [address] Dr. Rosa Tran Monocytes/100 WBC (Bld) 6.8 % Normal 1.7-12.0 [facility] Comment on above: Performed By: #### C VDTBH #### [facility] Laboratory [address] [place] [address] Dr. Rosa Tran NEUT # 5.4 103/ul Normal 1.4-6.5 The [facility] Comment on above: Performed By: #### C VDTBH #### [facility] Laboratory [address] [place] [address] Dr. Rosa Tran Neutrophils/100 WBC (Bld) 69.5 % Normal 43.0-75.0 The [facility] Comment on above: Performed By: #### C VDTBH #### [facility] Laboratory [address] [address] [address] Rosa Tran Platelet mean volume (Bld) [Entitic vol] 9.9 fL Normal 9.5-13.5 [facility] Comment on above: Performed By: #### C VDTBH #### [facility] Laboratory [address] [address] [address] Rosa Tran PLT 197 103/ul Normal 150-450 [facility] Comment on above: Performed By: #### C VDTBH #### [facility] Laboratory [address] [address] [address] Rosa Tran RBC 3.59 106/ul Critically low 4.70-6.10 [facility] Comment on above: Performed By: #### C VDTBH #### [facility] Laboratory [address] [address] [address] Rosa Tran WBC 7.8 103/ul Normal 4.0-11.0 [facility] Comment on above: Performed By: #### C VDTBH #### [facility] Laboratory [address] [address] [address] Rosa Tran LIPASEon 08-13-2022 Lipase [Catalytic activity/Vol] 52.0 U/L Critically low 73.0-393.0 [facility] Comment on above: Performed By: #### A CARMEN LIPA, CMP ####[facility] [address] [address]Dr. Rosa Tran PROF 14(COMP METB)on 023 Albumin [Mass/Vol] 3.3 g/dL Critically low 3.4-5.0 [facility] Comment on above: Performed By: #### A MY, LIPA, CMP ####[facility] [address] [address]Dr. Rosa Tran Albumin/Globulin [Mass ratio] 1.4 {ratio} Normal [facility] Comment on above: Performed By: #### A MY, LIPA, CMP ####[facility] [address] [address]Dr. Rosa Tran ALP [Catalytic activity/Vol] 70 U/L Normal 46-116 The [facility] Comment on above: Performed By: #### A ADRIANO MORALES, CMP ####[facility] [address] [address]Dr. Rosa Tran ALT [Catalytic activity/Vol] 31 U/L Normal 16-63 The [facility] Comment on above: Performed By: #### A CARMEN LIPA, CMP ####[facility] [address] [address]Dr. Rosa Tran Anion gap [Moles/Vol] 12.0 mmol/L Normal The [facility] Comment on above: Performed By: #### A CARMEN LIPA, CMP ####[facility] [address] [address]Dr. Rosa Tran AST [Catalytic activity/Vol] 30 U/L Normal 15-37 The [facility] Comment on above: Performed By: #### A CARMEN LIPA, CMP ####[facility] [address] [address]Dr. Rosa Tran Bilirubin [Mass/Vol] 0.5 mg/dL Normal 0.2-1.0 The [facility] Comment on above: Performed By: #### A ADRIANO MORALES, CMP ####[facility] [address] [address]Dr. Rosa Tran Calcium [Mass/Vol] 8.2 mg/dL Critically low 8.5-10.1 The [facility] Comment on above: Performed By: #### A CARMEN LIPA, CMP ####[facility] [address] [address]Dr. Rosa Tran Chloride [Moles/Vol] 108 mmol/L Critically high 98-107 The [facility] Comment on above: Performed By: #### A CARMEN LIPA, CMP ####[facility] [address] [address]Dr. Rosa Tran CO2 [Moles/Vol] 25.5 mmol/L Normal 21.0-32.0 The [facility] Comment on above: Performed By: #### A CARMEN LIPA, CMP ####[facility] [address] [id number]. Rosa Tran Creatinine [Mass/Vol] 0.68 mg/dL Critically low 0.70-1.30 The [facility] Comment on above: Performed By: #### A MY, LIPA, CMP ####[facility] [address] [id number]. Rosa Tran EGFR-AF SENEGALESE >60 Normal >=60 The [facility] Comment on above: Performed By: #### A MY, LIPA, CMP ####[facility] [address] [id number]. Rosa Tran EGFR-NON AF SENEGALESE >60 Normal >=60 The [facility] Comment on above: Performed By: #### A MY, LIPA, CMP ####[facility] [address] [place], [place] [address]Dr. Rosa Tran Globulin (S) [Mass/Vol] 2.4 g/dL Normal The [facility] Comment on above: Performed By: #### A MY, LIPA, CMP ####[facility] [address] [address]Dr. Rosa Tran Glucose [Mass/Vol] 109 mg/dL Critically high 74-106 The [facility] Comment on above: Performed By: #### A MY, LIPA, CMP ####[facility] [address] [place], [place] [address]Dr. Rosa Tran Potassium [Moles/Vol] 3.5 mmol/L Normal 3.5-5.1 The [facility] Comment on above: Performed By: #### A MY, LIPA, CMP ####[facility] [address] [place], [place] [address]Dr. Rosa Tran Protein [Mass/Vol] 5.7 g/dL Critically low 6.4-8.2 The [facility] Comment on above: Performed By: #### A MY, LIPA, CMP ####[facility] [address] [address]Dr. Rosa Tran Sodium [Moles/Vol] 142 mmol/L Normal 136-145 The [facility] Comment on above: Performed By: #### A CARMEN LIPA, CMP ####[facility] [address] [address]Dr. Rosa Tran Urea nitrogen [Mass/Vol] 9.0 mg/dL Normal 7.0-18.0 [facility] Comment on above: Performed By: #### A MY LIPA, CMP ####[facility] [address] [address]DrArgelia Tran Urea nitrogen/Creatini ne [Mass ratio] 13.2 mg/mg Normal [facility] Comment on above: Performed By: #### A ADRIANO MORALES, CMP ####[facility] [address] [address]DrArgelia Tran CBC AUTO DIFFon 08-12-2022 BASO # 0.0 103/ul Normal 0.0-0.1 [facility] Comment on above: Performed By: #### C VDTB #### [facility] Laboratory [address] [place] [address] Dr. Rosa Tran Basophils/100 WBC (Bld) 0.3 % Normal 0.2-2.0 [facility] Comment on above: Performed By: #### C VDTBH #### [facility] Laboratory [address] [place] [address] Dr. Rosa Tran EO # 0.0 103/ul Normal 0.0-0.7 The [facility] Comment on above: Performed By: #### C VDTBH #### [facility] Laboratory [address] [place] [address] Dr. Rosa Tran Eosinophils/100 WBC (Bld) 0.0 % Critically low 0.9-7.0 [facility] Comment on above: Performed By: #### C VDTBH #### [facility] Laboratory [address] [place] [address] Dr. Rosa Tran Erythrocyte distribution width (RBC) [Ratio] 13.0 % Normal 11.0-15.0 [facility] Comment on above: Performed By: #### C VDTBH #### [facility] Laboratory [address] [place] [address] Dr. Rosa Tran Hematocrit (Bld) [Volume fraction] 36.9 % Critically low 42.0-54.0 [facility] Comment on above: Performed By: #### C VDTBH #### [facility] Laboratory [address] [place] [address] Dr. Rosa Tran Hemoglobin (Bld) [Mass/Vol] 12.9 g/dL Critically low 14.0-18.0 [facility] Comment on above: Performed By: #### C VDTBH #### [facility] Laboratory [address] [place] [address] Dr. Rosa Tran IG # 0.04 10e3/ul Critically high 0.00-0.03 [facility] Comment on above: Performed By: #### C VDTBH #### [facility] Laboratory [address] [place] [address] Dr. Rosa Tran IG % 0.3 % Normal 0.0-0.5 [facility] Comment on above: Performed By: #### C VDTBH #### [facility] Laboratory [address] [place] [address] Dr. Rosa Tran LYMPH # 1.4 103/ul Normal 1.2-3.8 [facility] Comment on above: Performed By: #### C VDTBH #### [facility] Laboratory [address] [place] [address] Dr. Rosa Tran Lymphocytes/100 WBC (Bld) 11.4 % Critically low 20.5-60.0 [facility] Comment on above: Performed By: #### C VDTBH #### [facility] Laboratory [address] [place] [address] Dr. Rosa Tran MANUAL DIFF REQ NO Normal [facility] Comment on above: Performed By: #### C VDTBH #### [facility] Laboratory [address] [place] [address] Dr. Rosa Tran MCH (RBC) [Entitic mass] 30.8 pg Normal 25.9-34.0 [facility] Comment on above: Performed By: #### C VDTBH #### [facility] Laboratory [address] [place] [address] Dr. Rosa Tran MCHC (RBC) [Mass/Vol] 35.0 g/dL Normal 29.9-35.2 [facility] Comment on above: Performed By: #### C VDTBH #### [facility] Laboratory [address] [place] [address] Dr. Rosa Tran MCV (RBC) [Entitic vol] 88.1 fL Normal 80.0-94.0 [facility] Comment on above: Performed By: #### C VDTBH #### [facility] Laboratory [address] [place] [address] Dr. Rosa Tran MONO # 0.3 103/ul Normal 0.3-0.8 [facility] Comment on above: Performed By: #### C VDTBH #### [facility] Laboratory [address] [place] [address] Dr. Rosa Tran Monocytes/100 WBC (Bld) 2.7 % Normal 1.7-12.0 [facility] Comment on above: Performed By: #### C VDTBH #### [facility] Laboratory [address] [place] [address] Dr. Rosa Tran NEUT # 10.1 103/ul Critically high 1.4-6.5 [facility] Comment on above: Performed By: #### C VDTBH #### [facility] Laboratory [address] [place] [address] Dr. Rosa Tran Neutrophils/100 WBC (Bld) 85.3 % Critically high 43.0-75.0 [facility] Comment on above: Performed By: #### C VDTBH #### [facility] Laboratory [address] [place] [address] Dr. Rosa Tran Platelet mean volume (Bld) [Entitic vol] 10.2 fL Normal 9.5-13.5 [facility] Comment on above: Performed By: #### C VDTBH #### [facility] Laboratory [address] [place] [address] Dr. Rosa Tran PLT 248 103/ul Normal 150-450 The [facility] Comment on above: Performed By: #### C VDTBH #### [facility] Laboratory [address] [place], [place] [address] Dr. Rosa Tran RBC 4.19 106/ul Critically low 4.70-6.10 [facility] Comment on above: Performed By: #### C VDTBH #### [facility] Laboratory [address] [place], [place] [address] Dr. Rosa Tran WBC 11.8 103/ul Critically high 4.0-11.0 [facility] Comment on above: Performed By: #### C VDTBH #### [facility] Laboratory [address] [place], [place] [address] Dr. Rosa Tran CTA ABD/PELVIS WO W CONon CTA ABD/PELVIS WO W CON EXAMINATION: CTA ABD/PELVIS WO W CON, 08/12/2022 7:51 AM EST HISTORY: Superior mesenteric artery syndrome COMPARISON: 08/11/2022 TECHNIQUE: CTA of the abdomen, and pelvis was performed following administration of IV contrast. Oral contrast was not administered prior to the examination. Coronal and sagittal MIPS, and three-dimensional reconstructions were created on separate workstation and saved to PACS. Dose reduction techniques were achieved by using automated exposure control and/or adjustment of mA and/or kV according to patient size and/or use of iterative reconstruction technique. FINDINGS: Lung Bases: Few pulmonary nodules include a 4 mm right lower lobe pulmonary nodule (image 2 series 9), not definitely changed since 08/27/2020 suggesting benignity. Liver: Normal. Biliary tree: Normal. Gallbladder: No findings of acute cholecystitis. Intraluminal density likely relates to vicarious contrast excretion. Spleen: Normal. Pancreas: Normal. Adrenal glands: Normal. Kidneys and ureters: Normal. Bladder: Normal. Reproductive organs: Prostate and seminal vesicles are grossly unremarkable. Gastrointestinal tract: Nondilated. The appendix is normal. Peritoneum/retroperitoneu m: No free fluid or gas. Vasculature: Patent. No abdominal aortic aneurysm. There is a normal aortomesenteric angle of approximately 50 degrees, although reduced aortomesenteric distance of approximately 7 mm. Lymph nodes: Normal. Abdominal wall: No acute findings Musculoskeletal: No acute findings IMPRESSION: 1. No acute findings within the abdomen and pelvis. Specifically, no findings of small bowel/duodenal obstruction. 2. Reduced aortomesenteric distance is a nonspecific finding that can be seen in superior mesenteric artery syndrome in the appropriate clinical context. Electronically authenticated by: ALIYAH LAL Date: 2022-08-12 08:48 Normal The [facility] Covid-19 PCR (CVDTB)on 08-03 SARS-CoV-2 (COVID-19) RNA VIKAS+probe Ql (Unsp spec) Not detected Normal NOT DETECTED The [facility] Comment on above: Result Comment: When diagnostic testing is negative, the possibility of a false negative should be considered in the context of a patient's recent exposures and the presence of clinical signs and symptoms consistent with SARS-CoV-2. This test is not yet approved or cleared by the [place] FDA. When there are no FDA-approved or cleared tests available, and other criteria are met, FDA can make tests available under an emergency access mechanism called an Emergency Use Authorization (EUA). The EUA for this test is supported by the [place] of Health and Human Service's declaration that circumstances exist to justify the emergency use of in vitro diagnostics for the detection and/or diagnosis of the virus that causes COVID-19. This EUA will remain in effect for the duration of the COVID-19 declaration justifying emergency of IVDs, unless it is terminated or revoked by the FDA (after which the test may no longer be used). Performed By: #### C VDTBH #### [facility] Laboratory [address] [place] [address] Dr. Rosa Tran DRUG SCREEN RAPID (URINE)on 08-12-2022 AMP Negative Normal NEGATIVE The [facility] Comment on above: Performed By: #### D RUGRPD #### [facility] Laboratory [address] [address] [address] Rosa Tran BAR Negative Normal NEGATIVE The [facility] Comment on above: Performed By: #### D RUGRPD #### [facility] Laboratory [address] [address] [address] Rosa Tran BUP Negative Normal NEGATIVE The [facility] Comment on above: Performed By: #### D RUGRPD #### [facility] Laboratory [address] [address] [address] Rosa Tran BZO Negative Normal NEGATIVE The [facility] Comment on above: Performed By: #### D RUGRPD #### [facility] Laboratory [address] [address] [address] Rosa Tran JOSE LUIS Negative Normal NEGATIVE The [facility] Comment on above: Performed By: #### D RUGRPD #### [facility] Laboratory [address] [place] [address] Dr. Rosa Tran CUT-OFFS SEE BELOW Normal [facility] Comment on above: Result Comment: AMP (Amphetamine): 500ng/mL, BAR (Barbituates): 200 ng/mL, BZO (Benzodiazepines): 150 ng/mL, BUP (Buprenorphine): 10 ng/mL, JOSE LUIS (Cocaine): 150 ng/mL, mAMP (Methamphetamine): 500 ng/mL, MTD (Methadone): 200 ng/mL, OPI (Opiates): 100 ng/mL, OXY (Oxycodone): 100 ng/mL, PCP (Phencyclidine): 25 ng/mL, PPX (Propoxyphene): 300 ng/mL, THC (Cannabinoids): 50 ng/mL, TCA (Trycyclic Antidepressants): 300 ng/mL Performed By: #### D RUGRPD #### [facility] Laboratory [address] [place] [address] Dr. Rosa Tran DRUG CUT HEADER DRUG CLASS TEST SYST EM CUT-OFF CONCENTRATIONS ARE FOLLOWS: Normal The [facility] Comment on above: Performed By: #### D RUGRPD #### [facility] Laboratory [address] [place] [address] Dr. Rosa Tran mAMP Negative Normal NEGATIVE The [facility] Comment on above: Performed By: #### D RUGRPD #### [facility] Laboratory [address] [place] [address] Dr. Rosa Tran MTD Negative Normal NEGATIVE The [facility] Comment on above: Performed By: #### D RUGRPD #### [facility] Laboratory [address] [place] [address] Dr. Rosa Tran OPI Negative Normal NEGATIVE The [facility] Comment on above: Performed By: #### D RUGRPD #### [facility] Laboratory [address] [place] [address] Dr. Rosa Tran OXY Negative Normal NEGATIVE The [facility] Comment on above: Performed By: #### D RUGRPD #### [facility] Laboratory [address] [address] [address] Rosa Tran PCP Negative Normal NEGATIVE The [facility] Comment on above: Performed By: #### D RUGRPD #### [facility] Laboratory [address] [place] [address] Dr. Rosa Tran PPX Negative Normal NEGATIVE The [facility] Comment on above: Performed By: #### D RUGRPD #### [facility] Laboratory [address] [address] [address] Rosa Tran TCA Positive Abnormal NEGATIVE The [facility] Comment on above: Performed By: #### D RUGRPD #### [facility] Laboratory [address] [place] [address] Dr. Rosa Tran THC Positive Abnormal NEGATIVE The [facility] Comment on above: Performed By: #### D RUGRPD #### [facility] [facility] [address] [place] [address] Dr. Rosa Tran LACTATE/LACTIC ACIDon 2022 Lactate [Moles/Vol] 1.1 mmol/L Normal 0.4-1.9 [facility] Comment on above: Performed By: #### L ACT ####[facility] [id number] [id number]. Rosa Tran LIPASEon 08-12-2022 Lipase [Catalytic activity/Vol] 55.0 U/L Critically low 73.0-393.0 [facility] Comment on above: Performed By: #### C VDTBH #### [facility] [address] [place] [address] Dr. Rosa Tran PROF 14(COMP METB)on 023 Albumin [Mass/Vol] 4.0 g/dL Normal 3.4-5.0 [facility] Comment on above: Performed By: #### C VDTBH #### [facility] [address] [place] [address] Dr. Rosa Tran Albumin/Globulin [Mass ratio] 1.3 {ratio} Normal [facility] Comment on above: Performed By: #### C VDTBH #### [facility] [address] [place] [address] Dr. Rosa Tran ALP [Catalytic activity/Vol] 94 U/L Normal 46-116 [facility] Comment on above: Performed By: #### C VDTBH #### [facility] [address] [place] [address] Dr. Rosa Tran ALT [Catalytic activity/Vol] 32 U/L Normal 16-63 [facility] Comment on above: Performed By: #### C VDTBH #### [facility] [address] [address] [address] Rosa Tran Anion gap [Moles/Vol] 12.2 mmol/L Normal [facility] Comment on above: Performed By: #### C VDTBH #### [facility] [address] [place] [address] Dr. Rosa Tran AST [Catalytic activity/Vol] 23 U/L Normal 15-37 [facility] Comment on above: Performed By: #### C VDTBH #### [facility] [address] [place] [address] Dr. Rosa Tran Bilirubin [Mass/Vol] 0.5 mg/dL Normal 0.2-1.0 [facility] Comment on above: Performed By: #### C VDTBH #### [facility] [address] [place] [address] Dr. Rosa Tran Calcium [Mass/Vol] 9.4 mg/dL Normal 8.5-10.1 [facility] Comment on above: Performed By: #### C VDTBH #### [facility] [address] [place] [address] Dr. Rosa Tran Chloride [Moles/Vol] 106 mmol/L Normal 98-107 [facility] Comment on above: Performed By: #### C VDTBH #### [facility] [address] [place] [address] Dr. Rosa Tran CO2 [Moles/Vol] 25.3 mmol/L Normal 21.0-32.0 [facility] Comment on above: Performed By: #### C VDTBH #### [facility] [address] [address] [address] Rosa Tran Creatinine [Mass/Vol] 0.76 mg/dL Normal 0.70-1.30 [facility] Comment on above: Performed By: #### C VDTBH #### [facility] [address] [address] [address] Rosa Tran EGFR-AF SENEGALESE >60 Normal >=60 [facility] Comment on above: Performed By: #### C VDTBH #### [facility] [address] [address] [address] Rosa Tran EGFR-NON AF SENEGALESE >60 Normal >=60 [facility] Comment on above: Performed By: #### C VDTBH #### [facility] [address] [place] [address] Dr. Rosa Tran Globulin (S) [Mass/Vol] 3.0 g/dL Normal [facility] Comment on above: Performed By: #### C VDTBH #### [facility] [address] [place] [address] Dr. Rosa Tran Glucose [Mass/Vol] 129 mg/dL Critically high 74-106 [facility] Comment on above: Performed By: #### C VDTBH #### [facility] [address] [place] [address] Dr. Rosa Tran Potassium [Moles/Vol] 3.5 mmol/L Normal 3.5-5.1 [facility] Comment on above: Performed By: #### C VDTBH #### [facility] [address] [place] [address] Dr. Rosa Tran Protein [Mass/Vol] 7.0 g/dL Normal 6.4-8.2 [facility] Comment on above: Performed By: #### C VDTBH #### [facility] [address] [place] [address] Dr. Rosa Tran Sodium [Moles/Vol] 140 mmol/L Normal 136-145 [facility] Comment on above: Performed By: #### C VDTBH #### [facility] [address] [place] [address] Dr. Rosa Tran Urea nitrogen [Mass/Vol] 11.0 mg/dL Normal 7.0-18.0 [facility] Comment on above: Performed By: #### C VDTBH #### [facility] [address] [place] [address] Dr. Rosa Tran Urea nitrogen/Creatini ne [Mass ratio] 14.5 mg/mg Normal [facility] Comment on above: Performed By: #### C VDTBH #### [facility] [address] [place] [address] Dr. Rosa Tran AMYLASEon 08-11-2022 Amylase [Catalytic activity/Vol] 67 U/L Normal 25-115 [facility] Comment on above: Performed By: #### C VDTBH #### [facility] [address] [place] [address] Dr. Rosa Tran CBC AUTO DIFFon 08-11-2022 BASO # 0.1 103/ul Normal 0.0-0.1 [facility] Comment on above: Performed By: #### C VDTBH #### [facility] [address] [place] [address] Dr. Rosa Tran Basophils/100 WBC (Bld) 0.4 % Normal 0.2-2.0 [facility] Comment on above: Performed By: #### C VDTBH #### [facility] [address] [place] [address] Dr. Rosa Tran EO # 0.1 103/ul Normal 0.0-0.7 [facility] Comment on above: Performed By: #### C VDTBH #### [facility] [address] [place] [address] Dr. Rosa Tran Eosinophils/100 WBC (Bld) 0.6 % Critically low 0.9-7.0 [facility] Comment on above: Performed By: #### C VDTBH #### [facility] [address] [place] [address] Dr. Rosa Tran Erythrocyte distribution width (RBC) [Ratio] 12.9 % Normal 11.0-15.0 [facility] Comment on above: Performed By: #### C VDTBH #### [facility] [address] [place] [address] Dr. Rosa Tran Hematocrit (Bld) [Volume fraction] 38.4 % Critically low 42.0-54.0 [facility] Comment on above: Performed By: #### C VDTBH #### [facility] [address] [place] [address] Dr. Rosa Tran Hemoglobin (Bld) [Mass/Vol] 13.1 g/dL Critically low 14.0-18.0 [facility] Comment on above: Performed By: #### C VDTBH #### [facility] [address] [place] [address] Dr. Rosa Tran IG # 0.05 10e3/ul Critically high 0.00-0.03 [facility] Comment on above: Performed By: #### C VDTBH #### [facility] [address] [place] [address] Dr. Rosa Tran IG % 0.4 % Normal 0.0-0.5 [facility] Comment on above: Performed By: #### C VDTBH #### [facility] [address] [place] [address] Dr. Rosa Tran LYMPH # 1.6 103/ul Normal 1.2-3.8 [facility] Comment on above: Performed By: #### C VDTBH #### [facility] [address] [place] [address] Dr. Rosa Tran Lymphocytes/100 WBC (Bld) 12.2 % Critically low 20.5-60.0 [facility] Comment on above: Performed By: #### C VDTBH #### [facility] [address] [place] [address] Dr. Rosa Tran MCH (RBC) [Entitic mass] 30.3 pg Normal 25.9-34.0 [facility] Comment on above: Performed By: #### C VDTBH #### [facility] [address] [place] [address] Dr. Rosa Tran MCHC (RBC) [Mass/Vol] 34.1 g/dL Normal 29.9-35.2 [facility] Comment on above: Performed By: #### C VDTBH #### [facility] [address] [place] [address] Dr. Rosa Tran MCV (RBC) [Entitic vol] 88.9 fL Normal 80.0-94.0 [facility] Comment on above: Performed By: #### C VDTBH #### [facility] [address] [place] [address] Dr. Rosa Tran MONO # 0.6 103/ul Normal 0.3-0.8 [facility] Comment on above: Performed By: #### C VDTBH #### [facility] [address] [place] [address] Dr. Rosa Tran Monocytes/100 WBC (Bld) 4.6 % Normal 1.7-12.0 [facility] Comment on above: Performed By: #### C VDTBH #### [facility] [address] [place] [address] Dr. Rosa Tran NEUT # 11.0 103/ul Critically high 1.4-6.5 [facility] Comment on above: Performed By: #### C VDTBH #### [facility] [address] [place] [address] Dr. Rosa Tran Neutrophils/100 WBC (Bld) 81.8 % Critically high 43.0-75.0 [facility] Comment on above: Performed By: #### C VDTBH #### [facility] [address] [place] [address] Dr. Rosa Tran Platelet mean volume (Bld) [Entitic vol] 10.0 fL Normal 9.5-13.5 [facility] Comment on above: Performed By: #### C VDTBH #### [facility] [address] [place] [address] Dr. Rosa Tran PLT 226 103/ul Normal 150-450 [facility] Comment on above: Performed By: #### C VDTBH #### [facility] [address] [place] [address] Dr. Rosa Tran RBC 4.32 106/ul Critically low 4.70-6.10 [facility] Comment on above: Performed By: #### C VDTB #### [facility] [address] [address] [address] Rosa Tran WBC 13.4 103/ul Critically high 4.0-11.0 [facility] Comment on above: Performed By: #### C VDTB #### [facility] [address] [address] [address] ABD/PELV W CONon 08-11-19 CT ABD/PELV W CON EXAMINATION: CT ABD/ PELV W CON HISTORY: Spinal muscular atrophy ; abdominal pain, nausea, vomiting COMPARISON: CTA abdomen pelvis 08/27/2020 TECHNIQUE: Axial, Coronal, and Sagittal images were obtained without and/or with IV contrast as indicated by examination type. Dose reduction techniques were achieved by using automated exposure control and/or adjustment of mA and/or kV according to patient size and/or use of iterative reconstruction technique. FINDINGS: LUNG BASES: No visible pulmonary or pleural disease. LIVER: No enlargement, atrophy, suspicious density, or significant focal lesion. BILIARY: No dilatation or calcification. PANCREAS: No lesion, fluid collection, or abnormal duct dilatation. SPLEEN: No enlargement or focal lesion. ADRENALS: No mass or enlargement. KIDNEYS: No mass, obstruction, or calcification. BOWEL/MESENTERY: No visible mass, obstruction, or bowel wall thickening. AORTA/VASCULAR: No aneurysm or dissection. RETROPERITONEUM: No mass or adenopathy. LYMPH NODES: No adenopathy. URINARY BLADDER: No visible focal wall thickening, lesion, or calculus. PELVIC ORGANS: No visible mass. Pelvic organs appropriate for patient age. ABDOMINAL WALL: No mass or hernia. BONES: No bony lesion or fracture. OTHER: Negative. IMPRESSION: 1.No acute or suspicious findings to account for patient's symptoms. Electronically authenticated by: MISAEL DENNY Date: 2022-08-11 08:55 Normal The [facility] Covid-19 PCR (CVDTB)on SARS-CoV-2 (COVID-19) RNA VIKAS+probe Ql (Unsp spec) Not detected Normal NOT DETECTED The [facility] Comment on above: Result Comment: When diagnostic testing is negative, the possibility of a false negative should be considered in the context of a patient's recent exposures and the presence of clinical signs and symptoms consistent with SARS-CoV-2. This test is not yet approved or cleared by the [place] FDA. When there are no FDA-approved or cleared tests available, and other criteria are met, FDA can make tests available under an emergency access mechanism called an Emergency Use Authorization (EUA). The EUA for this test is supported by the [employer] of Health and Human Service's declaration that circumstances exist to justify the emergency use of in vitro diagnostics for the detection and/or diagnosis of the virus that causes COVID-19. This EUA will remain in effect for the duration of the COVID-19 declaration justifying emergency of IVDs, unless it is terminated or revoked by the FDA (after which the test may no longer be used). Performed By: #### C VDTBH #### [facility] [address] [place] [address] Dr. Rosa Tran LACTATE/LACTIC ACIDon 2022 Lactate [Moles/Vol] 0.5 mmol/L Normal 0.4-1.9 [facility] Comment on above: Performed By: #### C VDTBH #### [facility] [address] [place] [address] Dr. Rosa Tran LIPASEon 08-11-2022 Lipase [Catalytic activity/Vol] 73.0 U/L Normal 73.0-393.0 [facility] Comment on above: Performed By: #### C VDTBH #### [facility] [address] [place] [address] Dr. Rosa Tran PROF 14(COMP METB)on 023 Albumin [Mass/Vol] 3.9 g/dL Normal 3.4-5.0 [facility] Comment on above: Performed By: #### C VDTBH #### [facility] [address] [place] [address] Dr. Rosa Tran ALP [Catalytic activity/Vol] 91 U/L Normal 46-116 [facility] Comment on above: Performed By: #### C VDTBH #### [facility] [address] [address] [address] Rosa Tran ALT [Catalytic activity/Vol] 34 U/L Normal 16-63 [facility] Comment on above: Performed By: #### C VDTBH #### [facility] [address] [address] [address] Rosa Tran Anion gap [Moles/Vol] 12.6 mmol/L Normal [facility] Comment on above: Performed By: #### C VDTBH #### [facility] [address] [address] [address] Rosa Tran AST [Catalytic activity/Vol] 20 U/L Normal 15-37 [facility] Comment on above: Performed By: #### C VDTBH #### [facility] [address] [place] [address] Dr. Rosa Tran Bilirubin [Mass/Vol] 0.3 mg/dL Normal 0.2-1.0 [facility] Comment on above: Performed By: #### C VDTBH #### [facility] [address] [place] [address] Dr. Rosa Tran Calcium [Mass/Vol] 9.0 mg/dL Normal 8.5-10.1 [facility] Comment on above: Performed By: #### C VDTBH #### [facility] [address] [place] [address] Dr. Rosa Tran Chloride [Moles/Vol] 105 mmol/L Normal 98-107 [facility] Comment on above: Performed By: #### C VDTBH #### [facility] [address] [address] [address] Rosa Tran CO2 [Moles/Vol] 26.9 mmol/L Normal 21.0-32.0 [facility] Comment on above: Performed By: #### C VDTBH #### [facility] [address] [place] [address] Dr. Rosa Tran Creatinine [Mass/Vol] 0.72 mg/dL Normal 0.70-1.30 [facility] Comment on above: Performed By: #### C VDTBH #### [facility] [address] [address] [address] Rosa Tran Globulin (S) [Mass/Vol] 2.9 g/dL Normal [facility] Comment on above: Performed By: #### C VDTBH #### [facility] [address] [address] [address] Rosa Tran Glucose [Mass/Vol] 125 mg/dL Critically high 74-106 [facility] Comment on above: Performed By: #### C VDTBH #### [facility] [address] [address] [address] Rosa Tran Protein [Mass/Vol] 6.8 g/dL Normal 6.4-8.2 [facility] Comment on above: Performed By: #### C VDTBH #### [facility] [address] [address] [address] Rosa Tran Sodium [Moles/Vol] 141 mmol/L Normal 136-145 [facility] Comment on above: Performed By: #### C VDTBH #### [facility] [address] [address] [address] Rosa Tran Urea nitrogen/Creatini ne [Mass ratio] 15.3 mg/mg Normal [facility] Comment on above: Performed By: #### C VDTBH #### [facility] [address] [address] [address] Rosa Feliciano 04-09-2021 [facility] Office Visit ([facility] ) ----- TIM CASTELLON ([id number]) 1990 M Date Time Provider Department 04/09/21 2:15 PM KAR[facility] ISABEL [facility] During your visit today, we recorded the following information about you: Pulse Blood pressure Weight Height 66/minute 133/79 58.4 kg 1.678 m Karma Isabel MD 05/21/2021 8:57 AM Signed HISTORY AND PHYSICAL EXAMINATION SERVICE DATE: 04/09/2021 SERVICE TIME: today PRIMARY CARE PHYSICIAN: No primary care provider on file. Subjective CHIEF COMPLAINT: pain HPI: This is a 30 year old male who presents with pain, US NML, needs UGISBFT, GES FUNCTIONAL STATUS: Independent No past medical history on file. No past surgical history on file. No family history on file. Social History Tobacco Use - Smoking status: Current Every Day Smoker - Smokeless tobacco: Never Used Vaping Use - Vaping Use: Never used Substance Use Topics - Alcohol use: Never - Drug use: Never (Not in a hospital admission) ALLERGIES No Known Allergies COMPLETE REVIEW OF SYSTEMS: PAIN ASSESSMENT: CURRENTLY HAVING PAIN; see HPI Objective PHYSICAL EXAM: Physical Exam Performed: Well appearing, NAD BP 133/79 Pulse 66 Ht 5' 6.05 (1.68m) Wt 128 lb 11.2 oz (58.4kg) BMI 20.73 kg/(m2). DATA: Diagnostic tests reviewed for today's visit: Most recent labs and imaging results. Assessment/Plan Active Problems: * No active hospital problems. * Resolved Problems: * No resolved hospital problems. * Medication and Non-Pharmacologic VTE Prophylaxis/Anticoagulant s SIGNATURE: Karma Isabel MD PATIENT NAME: Tim Castellon DATE: April 09, 2021 TIME: 2:16 PM PAGER/CONTACT #: Naun Rodrigues PA-C 05/21/2021 8:57 AM Signed HISTORY AND PHYSICAL EXAMINATION SERVICE DATE: 04/09/2021 SERVICE TIME: PRIMARY CARE PHYSICIAN: No primary care provider on file. Subjective CHIEF COMPLAINT: Chronic abdominal pain, nausea, vomiting HPI: This is a 30 year old male who presents to outpatient clinic for evaluation of chronic nausea, vomiting, epigastric pain for past 10 years. He is her for further evaluation and work up FUNCTIONAL STATUS: Independent No past medical history on file. No past surgical history on file. No family history on file. Social History Tobacco Use - Smoking status: Current Every Day Smoker - Smokeless tobacco: Never Used Vaping Use - Vaping Use: Never used Substance Use Topics - Alcohol use: Never - Drug use: Never (Not in a hospital admission) ALLERGIES No Known Allergies COMPLETE REVIEW OF SYSTEMS: As per HPI Objective PHYSICAL EXAM: Physical Exam Performed: BP 133/79 Pulse 66 Ht 5' 6.05 (1.68m) Wt 128 lb 11.2 oz (58.4kg) BMI 20.73 kg/(m2). DATA: Diagnostic tests reviewed for today's visit: CT angiogram abdomen and pelvis Result Date: 01/17/2021 Narrative: CLINICAL INFORMATION: Mesenteric ischemia. Abdominal pain. Superior mesenteric artery syndrome.. COMPARISON: 10/09/2020. PROCEDURE: Routine CT Angiography of the abdomen and pelvis obtained after the uncomplicated intravenous administration of 120 cc Omnipaque-350. Sagittal and coronal reformatted images with 3-D Maximum intensity projection reconstructions constructed under concurrent physician supervision on a independent workstation for evaluation of aorta and mesenteric arteries. Automated exposure control was utilized. FINDINGS: Vascular findings: Aorta: Normal in course and caliber. No evidence of aneurysm or dissection. Celiac: There is stenosis at the origin of the celiac trunk with hairpin configuration compatible with median arcuate ligament stenosis. The celiac vascular territories are well opacified. SMA: The ostium of the SMA is within normal limits. There is a narrow aorto SMA angle of approximately 10 degrees with narrowing of the left renal vein as it passes between the aorta and SMA. There is mild dilatation of proximal SMA branch measuring up to 4 mm. Distal SMA territory is within normal limits. Renal arteries: Within normal limits. DOLORES: Within normal limits. Iliac arteries: Within normal limits. Visualized femoral arteries: Within normal limits. Other findings: The lung bases are clear. The liver and gallbladder are unremarkable. The pancreas, spleen, and adrenal glands are unremarkable. The kidneys enhance symmetrically. No hydronephrosis or urinary collecting system obstruction. Urinary bladder contour is unremarkable. Small bowel is normal in caliber, no evidence of bowel obstruction. The colon appears unremarkable. 3-D reformatted images confirm the source data findings. IMPRESSION: 1. No acute abnormalities on CTA abdomen and pelvis. 2. 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 3. There is a narrow aorto SMA angle which can be seen with SMA syndrome. Narrowing of the left renal vein a (more content not included)... Normal [facility] 04-09-2021 [facility] Telephone (GENN) ----- CHINTANJORDYTIM E ([id number]) 1990 Date Time Provider Department 04/09/21 MELANI BRANCH During your visit today, we recorded the following information about you: Melani Branch RN 04/09/2021 10:40 AM Signed Shayla GUADARRAMA had attempted to call patient regarding the incorrect appt. She left a VM yesterday. I called today and it states that patient is not accepting calls at this time, so I was not able to leave a message. He does have an appt. today with a different doctor. Allergies As of Date: 04/09/2021 (Not on File) Date Reviewed: Never Reviewed Reason for Visit: Incorrectly scheduled appt [Other] Problem List As Of Date: 04/09/2021 (None) Encounter Status:Closed by MELANI BRANCH on 04/09/21 Normal [facility] Encounters Encounter Date Encounter Type Care Provider Facility Start: 10-12-2022 End: 10-14-[address] ANKUSH CARROLL . Facility:[facility] Start: 10-10-2022 End: 10-11-[address] ANKUSH CARROLL . Facility:[facility] Start: 10-07-2022 End: 10-08-[address] MISAEL DENNY Facility:[facility] Start: 08-12-2022 End: 08-14-[address] ANKUSH CARROLL . Facility:[facility] Start: 08-11-2022 End: 08-11-[address] ANKUSH CARROLL . Facility:[facility] Start: 02-06-2022 End: 02-06-[address] MERT PACHECO . Facility:[facility] Payers Date Payer Category Payer Unknown [id number] 2.16.84 [id number] 1990 Unknown [id number] 2.16.84 [id number] 1990 Unknown [id number] 2.16.84 [id number] 1990 Unknown [id number] 2.16.84 [id number] 1990 Unknown [id number] 2.16.84 [id number] 1990 Unknown [id number] 2.16.84 [id number] 1959 Unknown [id number] Progress note 04-09-2021 Note Date & Type Note Facility 04-09-2021 Note HNO ID: [id number] Author: Naun Rodrigues PA-C Service: ? Author Type: Physician Hospital Medicine Director Type: Progress Notes Filed: 05/21/2021 8:57 AM Note Text: HISTORY AND PHYSICAL EXAMINATION SERVICE DATE: 04/09/2021 SERVICE TIME: PRIMARY CARE PHYSICIAN: No primary care provider on file. Subjective CHIEF COMPLAINT: Chronic abdominal pain, nausea, vomiting HPI: This is a 30 year old male who presents to outpatient clinic for evaluation of chronic nausea, vomiting, epigastric pain for past 10 years. He is her for further evaluation and work up FUNCTIONAL STATUS: Independent No past medical history on file. No past surgical history on file. No family history on file. Social History Tobacco Use - Smoking status: Current Every Day Smoker - Smokeless tobacco: Never Used Vaping Use - Vaping Use: Never used Substance Use Topics - Alcohol use: Never - Drug use: Never (Not in a hospital admission) ALLERGIES No Known Allergies COMPLETE REVIEW OF SYSTEMS: As per HPI Objective PHYSICAL EXAM: Physical Exam Performed: BP 133/79 Pulse 66 Ht 5' 6.05 (1.68m) Wt 128 lb 11.2 oz (58.4kg) BMI 20.73 kg/(m2). DATA: Diagnostic tests reviewed for today's visit: CT angiogram abdomen and pelvis Result Date: 01/17/2021 Narrative: CLINICAL INFORMATION: Mesenteric ischemia. Abdominal pain. Superior mesenteric artery syndrome.. COMPARISON: 10/09/2020. PROCEDURE: Routine CT Angiography of the abdomen and pelvis obtained after the uncomplicated intravenous administration of 120 cc Omnipaque-350. Sagittal and coronal reformatted images with 3-D Maximum intensity projection reconstructions constructed under concurrent physician supervision on a independent workstation for evaluation of aorta and mesenteric arteries. Automated exposure control was utilized. FINDINGS: Vascular findings: Aorta: Normal in course and caliber. No evidence of aneurysm or dissection. Celiac: There is stenosis at the origin of the celiac trunk with hairpin configuration compatible with median arcuate ligament stenosis. The celiac vascular territories are well opacified. SMA: The ostium of the SMA is within normal limits. There is a narrow aorto SMA angle of approximately 10 degrees with narrowing of the left renal vein as it passes between the aorta and SMA. There is mild dilatation of proximal SMA branch measuring up to 4 mm. Distal SMA territory is within normal limits. Renal arteries: Within normal limits. DOLORES: Within normal limits. Iliac arteries: Within normal limits. Visualized femoral arteries: Within normal limits. Other findings: The lung bases are clear. The liver and gallbladder are unremarkable. The pancreas, spleen, and adrenal glands are unremarkable. The kidneys enhance symmetrically. No hydronephrosis or urinary collecting system obstruction. Urinary bladder contour is unremarkable. Small bowel is normal in caliber, no evidence of bowel obstruction. The colon appears unremarkable. 3-D reformatted images confirm the source data findings. IMPRESSION: 1. No acute abnormalities on CTA abdomen and pelvis. 2. 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 3. There is a narrow aorto SMA angle which can be seen with SMA syndrome. Narrowing of the left renal vein as it passes between the SMA and aorta. No gastric or proximal duodenal dilatation or obstruction on this CT. 4. Stable dilated branch of the SMA measuring 4 mm in diameter, unchanged from prior studies. All CT scans at this facility use dose modulation, iterative reconstruction, and/or weight based dosing when appropriate to reduce radiation dose to as low as reasonably achievable. Finalized by Braden Kendall MD on 01/17/2021 3:07 AM Assessment/Plan 1) Upper GI small bowel follow thru 2) gastric emptying access Gastroparesis SIGNATURE: Naun Rodrigues PA-C PATIENT NAME: Tim Castellon DATE: April 09, 2021 TIME: 2:24 PM PAGER/CONTACT #: [facility] Progress note 04-09-2021 Note Date & Type Note Facility 04-09-2021 Note HNO ID: [id number] Author: Karma Isabel MD Service: ? Author Type: Physician Type: Progress Notes Filed: 05/21/2021 8:57 AM Note Text: HISTORY AND PHYSICAL EXAMINATION SERVICE DATE: 04/09/2021 SERVICE TIME: today PRIMARY CARE PHYSICIAN: No primary care provider on file. Subjective CHIEF COMPLAINT: pain HPI: This is a 30 year old male who presents with pain, US NML, needs UGISBFT, GES FUNCTIONAL STATUS: Independent No past medical history on file. No past surgical history on file. No family history on file. Social History Tobacco Use - Smoking status: Current Every Day Smoker - Smokeless tobacco: Never Used Vaping Use - Vaping Use: Never used Substance Use Topics - Alcohol use: Never - Drug use: Never (Not in a hospital admission) ALLERGIES No Known Allergies COMPLETE REVIEW OF SYSTEMS: PAIN ASSESSMENT: CURRENTLY HAVING PAIN; see HPI Objective PHYSICAL EXAM: Physical Exam Performed: Well appearing, NAD BP 133/79 Pulse 66 Ht 5' 6.05 (1.68m) Wt 128 lb 11.2 oz (58.4kg) BMI 20.73 kg/(m2). DATA: Diagnostic tests reviewed for today's visit: Most recent labs and imaging results. Assessment/Plan Active Problems: * No active hospital problems. * Resolved Problems: * No resolved hospital problems. * Medication and Non-Pharmacologic VTE Prophylaxis/Anticoagulants SIGNATURE: Karma Isabel MD PATIENT NAME: Tim Castellon DATE: April 09, 2021 TIME: 2:16 PM PAGER/CONTACT #: [facility] Summary Purpose Family History No Family History Records FoundNo Family History Records Found Advance Directives No Advanced Directives Records FoundNo Advanced Directives Records Found Additional Source Comments (unrecognized sect ion and content) No Status Records FoundNo Status Records Found INFORMATION SOURCE (unrecogn ized section and content) DATE CREATED AUTHOR 08/07/2021 [facility] DATE CREATED AUTHOR AUTHOR'S ORGANIZ ATION 10/21/2022 [facility] FOR RECORDS PERTAINING TO PATIENTS WHO ARE OR HAVE BEEN ENROLLED IN A CHEMICAL DEPENDENCY/SUBSTANCEABUSE PROGRAM, SOME INFORMATION MAY BE OMITTED. This clinical summary was aggregated from multiple sources. Caution should be exercised in using it in the provision of clinical care. This summary normalizes information from multiple sources, and as a consequence, information in this document may materially change the coding, format and clinical context of patient data. In addition, data may be omitted in some cases. CLINICAL DECISIONS SHOULD BE BASED ON THE PRIMARY CLINICAL RECORDS. [facility]. provides no warranty or guarantee of the accuracy or completeness of information in this document.
--- NOTE | 2024-03-26 04:42 | ED_ITS ---
HPI HPI - General Adult General Chief complaint: Abdominal Pain Stated complaint: ABD PAIN Time Seen by Provider: 03/26/24 04:32 Source: patient Mode of arrival: ambulance Limitations: no limitations History of Present Illness HPI narrative: 33-year-old male presents to the emergency department for abdominal pain and vomiting. He states discharge yesterday afternoon. 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 He has had no hematemesis or fever or trauma. The pain is severe and continuous. Related Data Home Medications ?Medication ?Instructions ?Recorded ?Confirmed amitriptyline 50 mg tablet 50 mg PO BEDTIME 03/13/23 03/26/24 Previous Rx's ?Medication ?Instructions ?Recorded lactulose 10 gram/15 mL oral 30 g (45 mL) PO BID 10 days #900 mL 04/14/23 solution (Constulose) Allergies Allergy/AdvReac Type Severity Reaction Status Date / Time No Known Drug Allergies Allergy Verified 03/26/24 04:26 Opioid HPI Opioid Management Most Recent Opioid Data: Last Pain Scale 10 03/26/24 05:37 Last ED Pain Assessment 03/26/24 05:37 Last MAR Pain Assessment 03/26/24 05:34 Last ORT Total Score 4 11/24/23 05:47 Last ORT Risk Category Moderate Risk 11/24/23 05:47 Ur Phencyclidine Scrn Negative (NEGATIVE) 04/12/23 17:15 Review of Systems ROS Narrative A ten point review of systems is negative except as noted above. [facility] Medical History (Updated 03/26/24 @ 06:43 by Ernesto Mathias MD) Cannabinoid hyperemesis syndrome ?R11.2 - Nausea with vomiting, unspecified (ICD-10) ?F12.90 - Cannabis use, unspecified, uncomplicated (ICD-10) Superior mesenteric artery syndrome ?K55.1 - Chronic vascular disorders of intestine (ICD-10) Cyclic vomiting syndrome ?R11.15 - Cyclical vomiting syndrome unrelated to migraine (ICD-10) Constipation ?K59.00 - Constipation, unspecified (ICD-10) Abdominal pain ?R10.9 - Unspecified abdominal pain (ICD-10) Social History (Updated 04/13/23 @ 09:13 by Dariela Small) Within the past year, how often did you have a drink containing alcohol: never Score interpretation: A score less than 4 is consistent with normal alcohol consumption. Smoking status: Current every day smoker Non-prescribed substance use: cannabis (any form) Previous occupational history: [employer] Highest level of school completed/degree received: 10th grade Little interest or pleasure in doing things: not at all Feeling down, depressed, or hopeless: not at all Feel stressed/tense/nervous/anxious/difficulty sleeping: not at all Gender Identity: male Exam Narrative Exam Narrative: Nurses note and vital signs reviewed and patient is not hypoxic. General: The patient appears is vomiting into a bag when I walked into the room. Skin: Warm, dry, no pallor noted. There is no rash noted. Head: Normocephalic, atraumatic Eye: Normal conjunctiva, no drainage Ears, Nose, Mouth, and Throat: oral mucosa is moist. Nares patent. Cardiovascular: Regular Rate and Rhythm Respiratory: Patient is in no distress, no accessory muscle use, lungs are clear to auscultation, no wheezing, rales or rhonchi Back: non-tender GI: Nondistended. Minimal diffuse tenderness Musculoskeletal: The patient has no evidence of calf tenderness, no pitting edema, symmetrical pulses noted bilaterally Neurological: A&O, normal speech Psychiatric: Cooperative Constitutional Vital Signs, click to edit/add: Last Vital Signs Temp 98.1 F 03/26/24 04:21 Pulse 57 L 03/26/24 05:39 Resp 16 03/26/24 05:39 BP 134/75 03/26/24 05:39 Pulse Ox 98 03/26/24 05:39 O2 Del Method Room Air 03/26/24 05:39 Course Vital Signs Vital signs: Vital Signs Temperature 98.1 F 03/26/24 04:21 Pulse Rate 67 03/26/24 04:21 Respiratory Rate 16 03/26/24 04:21 Blood Pressure 150/99 H 03/26/24 04:21 Pulse Oximetry 97 03/26/24 04:21 Oxygen Delivery Method Room Air 03/26/24 04:21 Temperature 98.1 F 03/26/24 04:21 Pulse Rate 57 L 03/26/24 05:39 Respiratory Rate 16 03/26/24 05:39 Blood Pressure 134/75 03/26/24 05:39 Pulse Oximetry 98 03/26/24 05:39 Oxygen Delivery Method Room Air 03/26/24 05:39 Medical Decision Making MDM Narrative Medical decision making narrative: The patient presented with vomiting and abdominal pain. Labs are normal. He was given several doses of pain medicine and continues to have symptoms so he will be admitted for observation. CAT scan and I do not feel is indicated. He has had several in the past and they are all negative. He has a history of cyclic vomiting syndrome which appears to be secondary to marijuana use. Treatment diagnosis and disposition were discussed with the patient. Differential Diagnosis Differential Diagnosis: Cyclic vomiting syndrome, nonspecific abdominal pain, pancreatitis Lab Data Lab results reviewed: Yes I reviewed the patient's lab results Labs: Lab Results 03/26/24 Range/Units 04:23 WBC 10.4 (4.0-11.0) 10^3/uL RBC 5.26 (4.70-6.10) 10^6/uL Hgb 15.9 (14.0-18.0) g/dL Hct 46.1 (42.0-54.0) % MCV 87.6 (80.0-94.0) fL MCH 30.2 (25.9-34.0) pg MCHC 34.5 (29.9-35.2) g/dL RDW 13.0 (11.0-15.0) % Plt Count 277 (150-450) 10^3/uL MPV 10.1 (9.5-13.5) fL Neut % (Auto) 83.1 H (43.0-75.0) % Lymph % (Auto) 11.5 L (20.5-60.0) % [place] % (Auto) 4.6 (1.7-12.0) % Eos % (Auto) 0.0 L (0.9-7.0) % Baso % (Auto) 0.5 (0.2-2.0) % Neut # (Auto) 8.6 H (1.4-6.5) 10^3/uL Lymph # (Auto) 1.2 (1.2-3.8) 10^3/uL [place] # (Auto) 0.5 (0.3-0.8) 10^3/uL Eos # (Auto) 0.0 (0.0-0.7) 10^3/uL Baso # (Auto) 0.1 (0.0-0.1) 10^3/uL Abs Immat Gran (auto) 0.03 (0.00-0.03) 10^3/uL Imm/Tot Granulo (auto) 0.3 (0.0-0.5) % Sodium 136 (136-145) mmol/L Potassium 4.1 (3.5-5.1) mmol/L Chloride 100 (98-107) mmol/L Carbon Dioxide 22.4 (21.0-32.0) mmol/L Anion Gap 17.7 BUN 17.0 (7.0-18.0) mg/dL Creatinine 1.33 H (0.70-1.30) mg/dL Est GFR ( Amer) >60 (>=60) Est GFR (Non-Af Amer) >60 (>=60) BUN/Creatinine Ratio 12.8 Glucose 179 H (74-106) mg/dL Calcium 10.9 H (8.5-10.1) mg/dL Total Bilirubin 0.6 (0.2-1.0) mg/dL Direct Bilirubin 0.1 (0.0-0.2) mg/dL AST 21 (15-37) U/L ALT 41 (16-63) U/L Alkaline Phosphatase 113 (46-116) U/L Total Protein 8.6 H (6.4-8.2) g/dL Albumin 4.8 (3.4-5.0) g/dL Globulin 3.8 g/dL Albumin/Globulin Ratio 1.3 Amylase 63 (25-115) U/L Lipase 24.0 (16.0-77.0) U/L Discharge Plan Discharge Chief Complaint: Abdominal Pain Clinical Impression: Cyclic vomiting syndrome Patient Disposition: Admitted as Observation Time of Disposition Decision: 06:43 Condition: Fair
[2024-03-26] MEDS: 0.9 % SODIUM CHLORIDE 1,000 ML 1000 ML IV (04:54)
[2024-03-26] MEDS: KETOROLAC TROMETHAMINE 30 MG/ML VIAL IVP (04:55)
[2024-03-26] MEDS: ONDANSETRON PF 4 MG/2 ML VIAL IV (04:55)
[2024-03-26] MEDS: METOCLOPRAMIDE HCL 10 MG/2 ML VIAL IVP ×4 (04:55→22:02)
[2024-03-26 04:59] LABS: Basophils Absolute Auto 0.1 10^3/uL (0.0-0.1); Basophils Percent Auto 0.5 % (0.2-2.0); Hematocrit 46.1 % (42.0-54.0); Hemoglobin 15.9 g/dL (14.0-18.0); Immature Granulocytes Abs Auto 0.03 10^3/uL (0.00-0.03); Immature Granulocytes Pct Auto 0.3 % (0.0-0.5); Lymphocytes Absolute Auto 1.2 10^3/uL (1.2-3.8); Lymphocytes Percent Auto 11.5 % (20.5-60.0); Mean Corpuscular HGB Conc 34.5 g/dL (29.9-35.2); Mean Corpuscular Hemoglobin 30.2 pg (25.9-34.0); Mean Corpuscular Volume 87.6 fL (80.0-94.0); Mean Platelet Volume 10.1 fL (9.5-13.5); Monocytes Absolute Auto 0.5 10^3/uL (0.3-0.8); Monocytes Percent Auto 4.6 % (1.7-12.0); Neutrophils Absolute Auto 8.6 10^3/uL (1.4-6.5); Neutrophils Percent Auto 83.1 % (43.0-75.0); Platelet Count 277 10^3/uL (150-450); Red Blood Count 5.26 10^6/uL (4.70-6.10); White Blood Count 10.4 10^3/uL (4.0-11.0)
[2024-03-26 05:06] LABS: Anion Gap 17.7; BUN Creatinine Ratio 12.8; Calcium 10.9 mg/dL (8.5-10.1); Carbon Dioxide 22.4 mmol/L (21.0-32.0); Chloride 100 mmol/L (98-107); Estimated GFR (African America >60 (>=60); Estimated GFR (Non-African Ame >60 (>=60); Glucose 179 mg/dL (74-106); Potassium 4.1 mmol/L (3.5-5.1); Sodium 136 mmol/L (136-145)
[2024-03-26 05:27] LABS: Bilirubin Total 0.6 mg/dL (0.2-1.0); Total Protein 8.6 g/dL (6.4-8.2)
[2024-03-26 05:28] LABS: Albumin Globulin Ratio 1.3; Amylase 63 U/L (25-115); Globulin 3.8 g/dL
[2024-03-26 05:29] LABS: Alanine Aminotransferase 41 U/L (16-63); Albumin Level 4.8 g/dL (3.4-5.0); Alkaline Phosphatase 113 U/L (46-116); Aspartate Amino Transferase 21 U/L (15-37); Bilirubin Direct 0.1 mg/dL (0.0-0.2)
[2024-03-26] MEDS: MORPHINE SULFATE 4 MG/ML VIAL IV ×2 (05:34→07:33)
--- NOTE | 2024-03-26 07:14 | P.HP_ITS ---
HPI H&P: HPI History of Present Illness Chief complaint: ABD PAIN/ cyclic vomiting Narrative: Patient with a history of cyclic vomiting syndrome presented to the emergency room with increasing abdominal pain nausea vomiting unable to keep any food down over the last 2 to 3 days. When I saw patient in the emergency room he was very uncomfortable secondary to pain. No emesis as well as in the room. Patient denies cough or shortness of breath or chest pain. Opioid HPI Opioid Management Most Recent Pain and Opioid Data: Last Pain Scale 10 03/26/24 07:51 Last Pain Assessment 03/26/24 07:51 Last ED Pain Assessment 03/26/24 05:37 Last MAR Pain Assessment 03/26/24 07:33 Last ORT Total Score 5 03/26/24 07:51 Last ORT Risk Category Moderate Risk 03/26/24 07:51 Ur Phencyclidine Scrn Negative (NEGATIVE) 04/12/23 17:15 Review of Systems ROS Status of ROS 10 or more systems reviewed and unremark able except as noted in history and below PFSH PFS Medical History (Updated 03/26/24 @ 06:43 by Ernesto Mathias MD) Cannabinoid hyperemesis syndrome ?R11.2 - Nausea with vomiting, unspecified (ICD-10) ?F12.90 - Cannabis use, unspecified, uncomplicated (ICD-10) Superior mesenteric artery syndrome ?K55.1 - Chronic vascular disorders of intestine (ICD-10) Cyclic vomiting syndrome ?R11.15 - Cyclical vomiting syndrome unrelated to migraine (ICD-10) Constipation ?K59.00 - Constipation, unspecified (ICD-10) Abdominal pain ?R10.9 - Unspecified abdominal pain (ICD-10) Social History (Updated 04/13/23 @ 09:13 by Dariela Small) Within the past year, how often did you have a drink containing alcohol: never Score interpretation: A score less than 4 is consistent with normal alcohol consumption. Smoking status: Current every day smoker Non-prescribed substance use: cannabis (any form) Previous occupational history: [employer] Highest level of school completed/degree received: 10th grade Little interest or pleasure in doing things: not at all Feeling down, depressed, or hopeless: not at all Feel stressed/tense/nervous/anxious/difficulty sleeping: not at all Gender Identity: male Meds Home Medications and Allergies Home Medications ?Medication ?Instructions ?Recorded ?Confirmed ?Type amitriptyline 50 mg tablet 50 mg PO BEDTIME 03/13/23 03/26/24 History Allergies Allergy/AdvReac Type Severity Reaction Status Date / Time No Known Drug Allergies Allergy Verified 03/26/24 04:26 Exam Constitutional Vital Signs, click to edit/add: Last Vital Signs Temp 98.1 F 03/26/24 04:21 Pulse 57 L 03/26/24 05:39 Resp 16 03/26/24 05:39 BP 134/75 03/26/24 05:39 Pulse Ox 98 03/26/24 05:39 O2 Del Method Room Air 03/26/24 05:39 Documenting provider has reviewed patient's vital signs: yes Common normals: apparent distress (Severe abdominal discomfort) HENMT Other: Dry mucous membranes Chest Common normals: inspection of chest normal and palpation of chest normal Respiratory Common normals: normal respiratory effort, no retractions and clear to auscultation bilaterally Cardio Common normals: regular rate, regular rhythm and no murmurs GI Common normals: Normal to inspection, nondistended, normoactive bowel sounds present and soft to palpation; tender (Diffusely tender, no rebound tenderness) Results Labs Labs: Short CBC 03/26/24 Range/Units 04:23 WBC 10.4 (4.0-11.0) 10^3/uL Hgb 15.9 (14.0-18.0) g/dL Hct 46.1 (42.0-54.0) % Plt Count 277 (150-450) 10^3/uL BMP 03/26/24 04:23 Sodium 136 Potassium 4.1 Chloride 100 Carbon Dioxide 22.4 BUN 17.0 Creatinine 1.33 H Glucose 179 H Calcium 10.9 H Liver Function 03/26/24 Range/Units 04:23 Total Bilirubin 0.6 (0.2-1.0) mg/dL Direct Bilirubin 0.1 (0.0-0.2) mg/dL AST 21 (15-37) U/L ALT 41 (16-63) U/L Alkaline Phosphatase 113 (46-116) U/L Albumin 4.8 (3.4-5.0) g/dL Assessment and Plan Assessment and Plan (1) Cyclic vomiting syndrome: (2) Vomiting: Plan Admission findings: Severe hyperemesis with significant dehydration resulting in acute kidney injury-stage 2 (STEFF/KDIGO) (has a baseline creatinine of last year of 0.6 at his last April, creatinine on admission 1.33 which is 220% above baseline), lactic acidosis, severe abdominal pain and recurrent emesis unable to control in the emergency room. Dehydration with acute kidney injury as outlined above and lactic acidosis-IV fluids. Reglan for nausea, Protonix for nausea, Haldol for cyclic vomiting syndrome, consider adding phenobarbital Hyperglycemia-this is likely secondary to the above-will monitor daily History constipation - will continue with patient on lactulose History of insomnia-continue with amitriptyline Admission status: Patient with a history of cyclic vomiting syndrome, reoccurrence, drug screen is pending, acute abdominal series is pending, lactate is positive, this is likely secondary just to the dehydration medically necessary treatment likely to span 1 midnight. Observation status
--- NOTE | 2024-03-26 07:18 | XR_ITS ---
The [address] [address] Patient Name: ROSALINE WOODSON MRN: [id number] date: 1990 Sex: M Assigned Patient Location: ER Current Patient Location: [place] Accession/Order Number: [id number] Exam Date: 03/26/2024 07:38 Report Date: 03/26/2024 07:52 At the request of: ANKUSH CARROLL Procedure: XR acute abdomen series EXAMINATION: XR acute abdomen series HISTORY: Abd Pain COMPARISON: No relevant comparison available. FINDINGS: LUNGS: No infiltrate, pneumothorax, or pleural effusion. MEDIASTINUM: No abnormal widening. BOWEL GAS PATTERN: Non-obstructed. FREE AIR: None. CALCIFICATIONS: None significant. BONES: Mild left convex curvature of lumbar spine. No fracture or visible bone lesion. OTHER: Negative. XR/XR acute abdomen series IMPRESSION: 1. No acute cardiac pulmonary process. 2. No acute or suspicious abdominal or pelvic findings to account for patient's symptoms. Electronically authenticated by: MISAEL DENNY Date: 03/26/2024 07:52
--- OUTSIDE RECORDS SUMMARY | 2024-03-26 07:50 | XMS_ITS | CCD ---
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 [facility] Comment on above: Performed By: #### C VDTB #### [facility] [address] [address] [address] Rosa Tran Summary FINAL Normal [facility] Comment on above: Result Comment: TOXASSURE [...] test is not intended to distinguish between wguiz-5-utwzqalnvqjvoodokklg, the predominant form of THC in most herbal or marijuana-based products, and xhhrg-7-xxseafehvhepueniwsns. Amitriptyline PRESENT Nortriptyline PRESENT Nortriptyline may be administered as a prescription drug; it is also an expected metabolite of amitriptyline. Acetaminophen PRESENT Diphenhydramine PRESENT Test Result Flag Units Ref Range Creatinine 183 mg/dL >=20 Declared Medications: Medication list was not provided. For clinical consultation, please call . Performed By: #### C VDTBH #### [facility] [address] [place] [address] Dr. Rosa Tran CBC AUTO DIFFon 10-14-2022 BASO # 0.0 103/ul Normal 0.0-0.1 [facility] Comment on above: Performed By: #### C VDTBH #### [facility] [address] [place] [address] Dr. Rosa Tran Basophils/100 WBC (Bld) 0.5 % Normal 0.2-2.0 [facility] Comment on above: Performed By: #### C VDTBH #### [facility] [address] [place] [address] Dr. Rosa Tran EO # 0.0 103/ul Normal 0.0-0.7 [facility] Comment on above: Performed By: #### C VDTBH #### [facility] [address] [place] [address] Dr. Rosa Tran Eosinophils/100 WBC (Bld) 0.2 % Critically low 0.9-7.0 [facility] Comment on above: Performed By: #### C VDTBH #### [facility] [address] [place] [address] Dr. Rosa Tran Erythrocyte distribution width (RBC) [Ratio] 12.5 % Normal 11.0-15.0 [facility] Comment on above: Performed By: #### C VDTBH #### [facility] [address] [place] [address] Dr. Rosa Tran Hematocrit (Bld) [Volume fraction] 39.7 % Critically low 42.0-54.0 [facility] Comment on above: Performed By: #### C VDTBH #### [facility] [address] [place] [address] Dr. Rosa Tran Hemoglobin (Bld) [Mass/Vol] 13.9 g/dL Critically low 14.0-18.0 [facility] Comment on above: Performed By: #### C VDTBH #### [facility] [address] [place] [address] Dr. Rosa Tran IG # 0.02 10e3/ul Normal 0.00-0.03 [facility] Comment on above: Performed By: #### C VDTBH #### [facility] [address] [place] [address] Dr. Rosa Tran IG % 0.2 % Normal 0.0-0.5 [facility] Comment on above: Performed By: #### C VDTBH #### [facility] [address] [place] [address] Dr. Rosa Tran LYMPH # 1.7 103/ul Normal 1.2-3.8 [facility] Comment on above: Performed By: #### C VDTBH #### [facility] [address] [place] [address] Dr. Rosa Tran Lymphocytes/100 WBC (Bld) 19.2 % Critically low 20.5-60.0 [facility] Comment on above: Performed By: #### C VDTBH #### [facility] [address] [place] [address] Dr. Rosa Tran MANUAL DIFF REQ NO Normal [facility] Comment on above: Performed By: #### C VDTBH #### [facility] [address] [place] [address] Dr. Rosa Tran MCH (RBC) [Entitic mass] 30.5 pg Normal 25.9-34.0 [facility] Comment on above: Performed By: #### C VDTBH #### [facility] [address] [place] [address] Dr. Rosa Tran MCHC (RBC) [Mass/Vol] 35.0 g/dL Normal 29.9-35.2 [facility] Comment on above: Performed By: #### C VDTBH #### [facility] [address] [place] [address] Dr. Rosa Tran MCV (RBC) [Entitic vol] 87.1 fL Normal 80.0-94.0 [facility] Comment on above: Performed By: #### C VDTBH #### [facility] [address] [place] [address] Dr. Rosa Tran MONO # 0.6 103/ul Normal 0.3-0.8 [facility] Comment on above: Performed By: #### C VDTBH #### [facility] [address] [place] [address] Dr. Rosa Tran Monocytes/100 WBC (Bld) 7.2 % Normal 1.7-12.0 [facility] Comment on above: Performed By: #### C VDTBH #### [facility] [address] [place] [address] Dr. Rosa Tran NEUT # 6.4 103/ul Normal 1.4-6.5 [facility] Comment on above: Performed By: #### C VDTBH #### [facility] [address] [place] [address] Dr. Rosa Tran Neutrophils/100 WBC (Bld) 72.7 % Normal 43.0-75.0 [facility] Comment on above: Performed By: #### C VDTBH #### [facility] [address] [place] [address] Dr. Rosa Tran Platelet mean volume (Bld) [Entitic vol] 9.6 fL Normal 9.5-13.5 [facility] Comment on above: Performed By: #### C VDTBH #### [facility] [address] [address] [address] Rosa Tran PLT 255 103/ul Normal 150-450 [facility] Comment on above: Performed By: #### C VDTBH #### [facility] [address] [place] [address] Dr. Rosa Tran RBC 4.56 106/ul Critically low 4.70-6.[address] [facility] Comment on above: Performed By: #### C VDTBH #### [facility] [address] [place] [address] Dr. Rosa Tran WBC 8.8 103/ul Normal 4.0-11.0 [facility] Comment on above: Performed By: #### C VDTBH #### [facility] [address] [place] [address] Dr. Rosa Tran PROF CHEM 8 (BAS METB)on Anion gap [Moles/Vol] 12.0 mmol/L Normal [facility] Comment on above: Performed By: #### C VDTBH #### [facility] [address] [place] [address] Dr. Rosa Tran Calcium [Mass/Vol] 9.1 mg/dL Normal 8.5-10.1 [facility] Comment on above: Performed By: #### C VDTBH #### [facility] [address] [place] [address] Dr. Rosa Tran Chloride [Moles/Vol] 104 mmol/L Normal 98-107 [facility] Comment on above: Performed By: #### C VDTBH #### [facility] [address] [place] [address] Dr. Rosa Tran CO2 [Moles/Vol] 27.1 mmol/L Normal 21.0-32.0 [facility] Comment on above: Performed By: #### C VDTBH #### [facility] [address] [place] [address] Dr. Rosa Tran Creatinine [Mass/Vol] 0.71 mg/dL Normal 0.70-1.30 [facility] Comment on above: Performed By: #### C VDTBH #### [facility] [address] [place] [address] Dr. Rosa Tran EGFR-AF PARAGUAYAN >60 Normal >=60 [facility] Comment on above: Performed By: #### C VDTBH #### [facility] [address] [place] [address] Dr. Rosa Tran EGFR-NON AF PARAGUAYAN >60 Normal >=60 [facility] Comment on above: Performed By: #### C VDTBH #### [facility] [address] [place] [address] Dr. Rosa Tran Glucose [Mass/Vol] 116 mg/dL Critically high 74-106 [facility] Comment on above: Performed By: #### C VDTBH #### [facility] [address] [place] [address] Dr. Rosa Tran Potassium [Moles/Vol] 3.1 mmol/L Critically low 3.5-5.1 [facility] Comment on above: Performed By: #### C VDTBH #### [facility] [address] [place] [address] Dr. Rosa Tran Sodium [Moles/Vol] 140 mmol/L Normal 136-145 [facility] Comment on above: Performed By: #### C VDTBH #### [facility] [address] [place] [address] Dr. Rosa Tran Urea nitrogen [Mass/Vol] 10.0 mg/dL Normal 7.0-18.0 [facility] Comment on above: Performed By: #### C VDTBH #### [facility] [address] [place] [address] Dr. Rosa Tran Urea nitrogen/Creatini ne [Mass ratio] 14.1 mg/mg Normal [facility] Comment on above: Performed By: #### C VDTBH #### [facility] [address] [place] [address] Dr. Rosa Tran CBC AUTO DIFFon 10-13-2022 BASO # 0.1 103/ul Normal 0.0-0.1 [facility] Comment on above: Performed By: #### C BC ####[facility] [address] [address]Dr. Rosa Tran Basophils/100 WBC (Bld) 0.7 % Normal 0.2-2.0 [facility] Comment on above: Performed By: #### C BC ####[facility] [address] [place], [place] [address]Dr. Rosa Tran EO # 0.0 103/ul Normal 0.0-0.7 [facility] Comment on above: Performed By: #### C BC ####[facility] [address] [place], [place] [address]Dr. Rosa Tran Eosinophils/100 WBC (Bld) 0.1 % Critically low 0.9-7.0 [facility] Comment on above: Performed By: #### C BC ####[facility] [address] [place], [place] [address]Dr. Rosa Tran Erythrocyte distribution width (RBC) [Ratio] 12.8 % Normal 11.0-15.0 [facility] Comment on above: Performed By: #### C BC ####[facility] [address] [place], [place] [address]Dr. Rosa Tran Hematocrit (Bld) [Volume fraction] 37.8 % Critically low 42.0-54.0 [facility] Comment on above: Performed By: #### C BC ####[facility] [address] [place], [place] [address]Dr. Rosa Tran Hemoglobin (Bld) [Mass/Vol] 12.7 g/dL Critically low 14.0-18.0 [facility] Comment on above: Performed By: #### C BC ####[facility] [address] [place], [place] [address]Dr. Rosa Tran IG # 0.04 10e3/ul Critically high 0.00-0.[address] [facility] Comment on above: Performed By: #### C BC ####[facility] [address] [place], [place] [address]DrArgelia Tran IG % 0.5 % Normal 0.0-0.5 [facility] Comment on above: Performed By: #### C BC ####[facility] [address] [address]DrArgelia Tran LYMPH # 1.8 103/ul Normal 1.2-3.8 [facility] Comment on above: Performed By: #### C BC ####[facility] [address] [address]DrArgelia Tran Lymphocytes/100 WBC (Bld) 23.3 % Normal 20.5-60.0 [facility] Comment on above: Performed By: #### C BC ####[facility] [address] [place], [place] [address]DrArgelia Tran MANUAL DIFF REQ NO Normal [facility] Comment on above: Performed By: #### C BC ####[facility] [address] [place], [place] [address]DrArgelia Tran MCH (RBC) [Entitic mass] 30.4 pg Normal 25.9-34.0 [facility] Comment on above: Performed By: #### C BC ####[facility] [address] [place], [place] [address]DrArgelia Rosa Marc MCHC (RBC) [Mass/Vol] 33.6 g/dL Normal 29.9-35.2 [facility] Comment on above: Performed By: #### C BC ####[facility] [address] [place], [place] [address]DrArgelia Tran MCV (RBC) [Entitic vol] 90.4 fL Normal 80.0-94.0 [facility] Comment on above: Performed By: #### C BC ####[facility] [address] [place], [place] [address]DrArgelia Tran MONO # 0.5 103/ul Normal 0.3-0.8 [facility] Comment on above: Performed By: #### C BC ####[facility] [address] [place], [place] [address]DrArgelia Tran Monocytes/100 WBC (Bld) 6.7 % Normal 1.7-12.0 [facility] Comment on above: Performed By: #### C BC ####[facility] [address] [address]DrArgelia Carlsonyoselin Tran NEUT # 5.3 103/ul Normal 1.4-6.5 [facility] Comment on above: Performed By: #### C BC ####[facility] [address] [address]DrArgelia Tran Neutrophils/100 WBC (Bld) 68.7 % Normal 43.0-75.0 [facility] Comment on above: Performed By: #### C BC ####[facility] [address] [place], [place] [address]DrArgelia Tran Platelet mean volume (Bld) [Entitic vol] 9.4 fL Critically low 9.5-13.5 [facility] Comment on above: Performed By: #### C BC ####[facility] [address] [place], [place] [address]DrArgelia Tran PLT 221 103/ul Normal 150-450 [facility] Comment on above: Performed By: #### C BC ####[facility] [address] [place], [place] [address]DrArgelia Tran RBC 4.18 106/ul Critically low 4.70-6.[address] [facility] Comment on above: Performed By: #### C BC ####[facility] [address] [address]DrArgelia Tran WBC 7.6 103/ul Normal 4.0-11.0 [facility] Comment on above: Performed By: #### C BC ####[facility] [address] [place], [place] [address]DrArgelia Tran PROF CHEM 8 (BAS METB)on Anion gap [Moles/Vol] 9.4 mmol/L Normal [facility] Comment on above: Performed By: #### B MP ####[facility] [address] [place], [place] [address]DrArgelia Tran Calcium [Mass/Vol] 8.6 mg/dL Normal 8.5-10.1 [facility] Comment on above: Performed By: #### B MP ####[facility] [address] [address]Dr. Rosa Tran Chloride [Moles/Vol] 105 mmol/L Normal 98-107 [facility] Comment on above: Performed By: #### B MP ####[facility] [address] [address]Dr. Rosa Tran CO2 [Moles/Vol] 26.9 mmol/L Normal 21.0-32.0 [facility] Comment on above: Performed By: #### B MP ####[facility] [address] [place], [place] [address]Dr. Rosa Tran Creatinine [Mass/Vol] 0.61 mg/dL Critically low 0.70-1.30 [facility] Comment on above: Performed By: #### B MP ####[facility] [address] [place], [place] [address]Dr. Rosa Tran EGFR-AF PARAGUAYAN >60 Normal >=60 [facility] Comment on above: Performed By: #### B MP ####[facility] [address] [place], [place] [address]Dr. Rosa Marc EGFR-NON AF PARAGUAYAN >60 Normal >=60 [facility] Comment on above: Performed By: #### B MP ####[facility] [address] [address]Dr. Rosa Marc Glucose [Mass/Vol] 124 mg/dL Critically high 74-106 [facility] Comment on above: Performed By: #### B MP ####[facility] [address] [place], [place] [address]Dr. Robynyoselin Marc Potassium [Moles/Vol] 3.3 mmol/L Critically low 3.5-5.1 [facility] Comment on above: Performed By: #### B MP ####[facility] [address] [place], [place] [address]Dr. Rosa Tran Sodium [Moles/Vol] 138 mmol/L Normal 136-145 [facility] Comment on above: Performed By: #### B MP ####[facility] [address] [id number]. Rosa Tran Urea nitrogen [Mass/Vol] 5.0 mg/dL Critically low 7.0-18.0 [facility] Comment on above: Performed By: #### B MP ####[facility] [address] [id number]. Rosa Tran Urea nitrogen/Creatini ne [Mass ratio] 8.2 mg/mg Normal [facility] Comment on above: Performed By: #### B MP ####[facility] [address] [id number]. Rosa Tran XR ABD FLAT UP_[place] [...] EMILE CRAIG Date: 2022-10-13 09:07 Normal [facility] CBC AUTO DIFFon 10-12-2022 BASO # 0.0 103/ul Normal 0.0-0.1 [facility] Comment on above: Performed By: #### C BC #### [facility] [address] [address] [address] Rosa Tran Basophils/100 WBC (Bld) 0.4 % Normal 0.2-2.0 [facility] Comment on above: Performed By: #### C BC #### [facility] [address] [address] [address] Rosa Tran EO # 0.0 103/ul Normal 0.0-0.7 [facility] Comment on above: Performed By: #### C BC #### [facility] [address] [place] [address] Dr. Rosa Tran Eosinophils/100 WBC (Bld) 0.0 % Critically low 0.9-7.0 [facility] Comment on above: Performed By: #### C BC #### [facility] [address] [place] [address] Dr. Rosa Tran Erythrocyte distribution width (RBC) [Ratio] 13.2 % Normal 11.0-15.0 [facility] Comment on above: Performed By: #### C BC #### [facility] [address] [place] [address] Dr. Rosa Tran Hematocrit (Bld) [Volume fraction] 34.9 % Critically low 42.0-54.0 [facility] Comment on above: Performed By: #### C BC #### [facility] [address] [place] [address] Dr. Rosa Tran Hemoglobin (Bld) [Mass/Vol] 11.9 g/dL Critically low 14.0-18.0 [facility] Comment on above: Performed By: #### C BC #### [facility] [address] [place] [address] Dr. Rosa Tran IG # 0.02 10e3/ul Normal 0.00-0.03 [facility] Comment on above: Performed By: #### C BC #### [facility] [address] [place] [address] Dr. Rosa Tran IG % 0.2 % Normal 0.0-0.5 [facility] Comment on above: Performed By: #### C BC #### [facility] [address] [place] [address] Dr. Rosa Tran LYMPH # 1.3 103/ul Normal 1.2-3.8 [facility] Comment on above: Performed By: #### C BC #### [facility] [address] [place] [address] Dr. Rosa Tran Lymphocytes/100 WBC (Bld) 15.5 % Critically low 20.5-60.0 [facility] Comment on above: Performed By: #### C BC #### [facility] [address] [place] [address] Dr. Rosa Tran MANUAL DIFF REQ NO Normal [facility] Comment on above: Performed By: #### C BC #### [facility] [address] [place] [address] Dr. Rosa Tran MCH (RBC) [Entitic mass] 31.0 pg Normal 25.9-34.0 [facility] Comment on above: Performed By: #### C BC #### [facility] [address] [place] [address] Dr. Rosa Tran MCHC (RBC) [Mass/Vol] 34.1 g/dL Normal 29.9-35.2 [facility] Comment on above: Performed By: #### C BC #### [facility] [address] [place] [address] Dr. Rosa Tran MCV (RBC) [Entitic vol] 90.9 fL Normal 80.0-94.0 [facility] Comment on above: Performed By: #### C BC #### [facility] [address] [place] [address] Dr. Rosa Tran MONO # 0.4 103/ul Normal 0.3-0.8 [facility] Comment on above: Performed By: #### C BC #### [facility] [address] [place] [address] Dr. Rosa Tran Monocytes/100 WBC (Bld) 4.9 % Normal 1.7-12.0 [facility] Comment on above: Performed By: #### C BC #### [facility] [address] [place] [address] Dr. Rosa Tran NEUT # 6.6 103/ul Critically high 1.4-6.[address] [facility] Comment on above: Performed By: #### C BC #### [facility] [address] [place] [address] Dr. Rosa Tran Neutrophils/100 WBC (Bld) 79.0 % Critically high 43.0-75.0 [facility] Comment on above: Performed By: #### C BC #### [facility] [address] [place] [address] Dr. Rosa Tran Platelet mean volume (Bld) [Entitic vol] 9.9 fL Normal 9.5-13.5 [facility] Comment on above: Performed By: #### C BC #### [facility] [address] [address] [address] Rosa Tran PLT 196 103/ul Normal 150-450 [facility] Comment on above: Performed By: #### C BC #### [facility] [address] [address] [address] Rosa Tran RBC 3.84 106/ul Critically low 4.70-6.[address] [facility] Comment on above: Performed By: #### C BC #### [facility] [address] [address] [address] Rosa Tran WBC 8.4 103/ul Normal 4.0-11.0 [facility] Comment on above: Performed By: #### C BC #### [facility] [address] [address] [address] Rosa Tran PROF CHEM 8 (BAS METB)on Anion gap [Moles/Vol] 12.1 mmol/L Normal [facility] Comment on above: Performed By: #### B MP ####[facility] [address] [address]DrArgelia Tran Calcium [Mass/Vol] 8.1 mg/dL Critically low 8.5-10.1 [facility] Comment on above: Performed By: #### B MP ####[facility] [address] [address]DrArgelia Tran Chloride [Moles/Vol] 108 mmol/L Critically high 98-107 [facility] Comment on above: Performed By: #### B MP ####[facility] [address] [address]DrArgelia Tran CO2 [Moles/Vol] 24.5 mmol/L Normal 21.0-32.0 [facility] Comment on above: Performed By: #### B MP ####[facility] [address] [address]Dr. Rosa Tran Creatinine [Mass/Vol] 0.64 mg/dL Critically low 0.70-1.30 [facility] Comment on above: Performed By: #### B MP ####[facility] [address] [address]Dr. Robynyoselin Marc EGFR-AF PARAGUAYAN >60 Normal >=60 [facility] Comment on above: Performed By: #### B MP ####[facility] [address] [address]Dr. Rosa Tran EGFR-NON AF PARAGUAYAN >60 Normal >=60 [facility] Comment on above: Performed By: #### B MP ####[facility] [address] [place], [place] [address]Dr. Rosa Tran Glucose [Mass/Vol] 132 mg/dL Critically high 74-106 [facility] Comment on above: Performed By: #### B MP ####[facility] [address] [place], [place] [address]Dr. Rosa Tran Potassium [Moles/Vol] 3.6 mmol/L Normal 3.5-5.1 [facility] [facility] Comment on above: Performed By: #### B MP ####[facility] [address] [place], [place] [address]Dr. Rosa Tran Sodium [Moles/Vol] 141 mmol/L Normal 136-145 [facility] Comment on above: Performed By: #### B MP ####[facility] [address] [place], [place] [address]Dr. Rosa Tran Urea nitrogen [Mass/Vol] 7.0 mg/dL Normal 7.0-18.0 [facility] Comment on above: Performed By: #### B MP ####[facility] [address] [place], [place] [address]Dr. Rosa Tran Urea nitrogen/Creatini ne [Mass ratio] 10.9 mg/mg Normal [facility] Comment on above: Performed By: #### B MP ####[facility] [address] [place], [place] [address]Dr. Rosa Tran CBC AUTO DIFFon 10-11-2022 BASO # 0.0 103/ul Normal 0.0-0.1 [facility] Comment on above: Performed By: #### C VDTBH #### [facility] [address] [place] [address] Dr. Rosa Tran Basophils/100 WBC (Bld) 0.4 % Normal 0.2-2.0 [facility] Comment on above: Performed By: #### C VDTBH #### [facility] [address] [place] [address] Dr. Rosa Tran EO # 0.0 103/ul Normal 0.0-0.7 [facility] Comment on above: Performed By: #### C VDTBH #### [facility] [address] [place] [address] Dr. Rosa Tran Eosinophils/100 WBC (Bld) 0.1 % Critically low 0.9-7.0 [facility] Comment on above: Performed By: #### C VDTBH #### [facility] [address] [place] [address] Dr. Rosa Tran Erythrocyte distribution width (RBC) [Ratio] 13.2 % Normal 11.0-15.0 [facility] Comment on above: Performed By: #### C VDTBH #### [facility] [address] [place] [address] Dr. Rosa Tran Hematocrit (Bld) [Volume fraction] 36.5 % Critically low 42.0-54.0 [facility] Comment on above: Performed By: #### C VDTBH #### [facility] [address] [place] [address] Dr. Rosa Tran Hemoglobin (Bld) [Mass/Vol] 12.5 g/dL Critically low 14.0-18.0 [facility] Comment on above: Performed By: #### C VDTBH #### [facility] [address] [place] [address] Dr. Rosa Tran IG # 0.03 10e3/ul Normal 0.00-0.03 [facility] Comment on above: Performed By: #### C VDTBH #### [facility] [address] [address] [address] Rosa Tran IG % 0.3 % Normal 0.0-0.5 [facility] Comment on above: Performed By: #### C VDTBH #### [facility] [address] [address] [address] Rosa Tran LYMPH # 1.7 103/ul Normal 1.2-3.8 [facility] Comment on above: Performed By: #### C VDTBH #### [facility] [address] [address] [address] Rosa Tran Lymphocytes/100 WBC (Bld) 16.2 % Critically low 20.5-60.0 [facility] Comment on above: Performed By: #### C VDTBH #### [facility] [address] [place] [address] Dr. Rosa Tran MANUAL DIFF REQ NO Normal [facility] Comment on above: Performed By: #### C VDTBH #### [facility] [address] [place] [address] Dr. Rosa Tran MCH (RBC) [Entitic mass] 30.8 pg Normal 25.9-34.0 [facility] Comment on above: Performed By: #### C VDTBH #### [facility] [address] [place] [address] Dr. Rosa Tran MCHC (RBC) [Mass/Vol] 34.2 g/dL Normal 29.9-35.2 [facility] Comment on above: Performed By: #### C VDTBH #### [facility] [address] [place] [address] Dr. Rosa Tran MCV (RBC) [Entitic vol] 89.9 fL Normal 80.0-94.0 [facility] Comment on above: Performed By: #### C VDTBH #### [facility] [address] [place] [address] Dr. Rosa Tran MONO # 0.7 103/ul Normal 0.3-0.8 [facility] Comment on above: Performed By: #### C VDTB #### [facility] [address] [place] [address] Dr. Rosa Tran Monocytes/100 WBC (Bld) 7.2 % Normal 1.7-12.0 [facility] Comment on above: Performed By: #### C VDTBH #### [facility] [address] [place] [address] Dr. Rosa Tran NEUT # 7.7 103/ul Critically high 1.4-6.[address] [facility] Comment on above: Performed By: #### C VDTBH #### [facility] [address] [place] [address] Dr. Rosa Tran Neutrophils/100 WBC (Bld) 75.8 % Critically high 43.0-75.0 [facility] Comment on above: Performed By: #### C VDTBH #### [facility] [address] [place] [address] Dr. Rosa Tran Platelet mean volume (Bld) [Entitic vol] 9.1 fL Critically low 9.5-13.5 [facility] Comment on above: Performed By: #### C VDTBH #### [facility] [address] [place] [address] Dr. Rosa Tran PLT 223 103/ul Normal 150-450 [facility] Comment on above: Performed By: #### C VDTBH #### [facility] [address] [place] [address] Dr. Rosa Tran RBC 4.06 106/ul Critically low 4.70-6.[address] [facility] Comment on above: Performed By: #### C VDTBH #### [facility] [address] [place] [address] Dr. Rosa Tran WBC 10.2 103/ul Normal 4.0-11.0 [facility] Comment on above: Performed By: #### C VDTBH #### [facility] [address] [place] [address] Dr. Rosa Tran BASO # 0.0 103/ul Normal 0.0-0.1 [facility] Comment on above: Performed By: #### C BC #### [facility] [address] [address] [address] Rosa Tran Basophils/100 WBC (Bld) 0.2 % Normal 0.2-2.0 [facility] Comment on above: Performed By: #### C BC #### [facility] [address] [place] [address] Dr. Rosa Tran EO # 0.0 103/ul Normal 0.0-0.7 [facility] Comment on above: Performed By: #### C BC #### [facility] [address] [place] [address] Dr. Rosa Tran Eosinophils/100 WBC (Bld) 0.0 % Critically low 0.9-7.0 [facility] Comment on above: Performed By: #### C BC #### [facility] [address] [place] [address] Dr. Rosa Tran Erythrocyte distribution width (RBC) [Ratio] 13.2 % Normal 11.0-15.0 [facility] Comment on above: Performed By: #### C BC #### [facility] [address] [place] [address] Dr. Rosa Tran Hematocrit (Bld) [Volume fraction] 35.1 % Critically low 42.0-54.0 [facility] Comment on above: Performed By: #### C BC #### [facility] [address] [place] [address] Dr. Rosa Tran Hemoglobin (Bld) [Mass/Vol] 11.9 g/dL Critically low 14.0-18.0 [facility] Comment on above: Performed By: #### C BC #### [facility] [address] [place] [address] Dr. Rosa Tran IG # 0.03 10e3/ul Normal 0.00-0.03 [facility] Comment on above: Performed By: #### C BC #### [facility] [address] [place] [address] Dr. Rosa Tran IG % 0.3 % Normal 0.0-0.5 [facility] Comment on above: Performed By: #### C BC #### [facility] [address] [address] [address] Rosa Tran LYMPH # 1.2 103/ul Normal 1.2-3.8 [facility] Comment on above: Performed By: #### C BC #### [facility] [address] [place] [address] Dr. Rosa Tran Lymphocytes/100 WBC (Bld) 13.3 % Critically low 20.5-60.0 [facility] Comment on above: Performed By: #### C BC #### [facility] [address] [place] [address] Dr. Rosa Tran MANUAL DIFF REQ NO Normal [facility] Comment on above: Performed By: #### C BC #### [facility] [address] [place] [address] Dr. Rosa Tran MCH (RBC) [Entitic mass] 30.6 pg Normal 25.9-34.0 [facility] Comment on above: Performed By: #### C BC #### [facility] [address] [place] [address] Dr. Rosa Tran MCHC (RBC) [Mass/Vol] 33.9 g/dL Normal 29.9-35.2 [facility] Comment on above: Performed By: #### C BC #### [facility] [address] [place] [address] Dr. Rosa Tran MCV (RBC) [Entitic vol] 90.2 fL Normal 80.0-94.0 [facility] Comment on above: Performed By: #### C BC #### [facility] [address] [place] [address] Dr. Rosa Tran MONO # 0.5 103/ul Normal 0.3-0.8 [facility] Comment on above: Performed By: #### C BC #### [facility] [address] [place] [address] Dr. Rosa Tran Monocytes/100 WBC (Bld) 5.4 % Normal 1.7-12.0 [facility] Comment on above: Performed By: #### C BC #### [facility] [address] [place], [place] [id number] Dr. Rosa Tran NEUT # 7.3 103/ul Critically high 1.4-6.[address] [facility] Comment on above: Performed By: #### C BC #### [facility] [address] [place] [address] Dr. Rosa Tran Neutrophils/100 WBC (Bld) 80.8 % Critically high 43.0-75.0 [facility] Comment on above: Performed By: #### C BC #### [facility] [address] [place] [address] Dr. Rosa Tran Platelet mean volume (Bld) [Entitic vol] 10.0 fL Normal 9.5-13.5 [facility] Comment on above: Performed By: #### C BC #### [facility] [address] [place] [address] Dr. Rosa Tran PLT 225 103/ul Normal 150-450 [facility] Comment on above: Performed By: #### C BC #### [facility] [address] [place] [address] Dr. Rosa Tran RBC 3.89 106/ul Critically low 4.70-6.[address] [facility] Comment on above: Performed By: #### C BC #### [facility] [address] [place] [address] Dr. Rosa Tran WBC 9.1 103/ul Normal 4.0-11.0 [facility] Comment on above: Performed By: #### C BC #### [facility] [address] [place] [address] Dr. Rosa Tran [facility] SARS-CoV-2 (COVID-19) RNA VIKAS+probe Ql (Unsp spec) Not detected Normal NOT DETECTED [facility] Comment on above: Result Comment: When diagnostic [...] for this test is supported by the [employer] and Human Service's declaration that [...] used). Performed By: #### C VDTBH #### [facility] [address] [place] [address] Dr. Rosa Tran DRUG SCREEN RAPID (URINE)on 10-11-2022 AMP Negative Normal NEGATIVE [facility] Comment on above: Performed By: #### C VDTBH #### [facility] [address] [place] [address] Dr. Rosa Tran BAR Negative Normal NEGATIVE [facility] Comment on above: Performed By: #### C VDTBH #### [facility] [address] [place] [address] Dr. Rosa Tran BUP Negative Normal NEGATIVE [facility] Comment on above: Performed By: #### C VDTBH #### [facility] [address] [place] [address] Dr. Rosa Tran BZO Negative Normal NEGATIVE [facility] Comment on above: Performed By: #### C VDTBH #### [facility] [address] [place] [address] Dr. Rosa Tran JOSE LUIS Negative Normal NEGATIVE [facility] Comment on above: Performed By: #### C VDTBH #### [facility] [address] [place] [address] Dr. Rosa Tran CUT-OFFS SEE BELOW Normal [facility] Comment on above: Result Comment: AMP [...] ng/mL Performed By: #### C VDTBH #### [facility] [address] [place] [address] Dr. Rosa Tran DRUG CUT HEADER DRUG CLASS TEST SYST EM CUT-OFF CONCENTRATIONS ARE FOLLOWS: Normal [facility] Comment on above: Performed By: #### C VDTBH #### [facility] [address] [place] [address] Dr. Rosa Tran mAMP Negative Normal NEGATIVE [facility] Comment on above: Performed By: #### C VDTBH #### [facility] [address] [place] [address] Dr. Rosa Tran MTD Negative Normal NEGATIVE [facility] Comment on above: Performed By: #### C VDTBH #### [facility] [address] [place] [address] Dr. Rosa Tran OPI Negative Normal NEGATIVE [facility] Comment on above: Performed By: #### C VDTBH #### [facility] [address] [place] [address] Dr. Rosa Tran OXY Negative Normal NEGATIVE [facility] Comment on above: Performed By: #### C VDTBH #### [facility] [address] [place] [address] Dr. Rosa Tran PCP Negative Normal NEGATIVE [facility] Comment on above: Performed By: #### C VDTBH #### [facility] [address] [place] [address] Dr. Rosa Tran PPX Negative Normal NEGATIVE [facility] Comment on above: Performed By: #### C VDTBH #### [facility] [address] [place] [address] Dr. Rosa Tran TCA Positive Abnormal NEGATIVE [facility] Comment on above: Performed By: #### C VDTBH #### [facility] [address] [address] [address] Rosa Tran THC Positive Abnormal NEGATIVE [facility] Comment on above: Performed By: #### C VDTBH #### [facility] [address] [address] [address] Rosa Tran LACTATE/LACTIC ACIDon 2022 Lactate [Moles/Vol] 1.4 mmol/L Normal 0.4-2.0 [facility] Comment on above: Performed By: #### C VDTBH #### [facility] [address] [address] [address] Rosa Tran LIPASEon 10-11-2022 Lipase [Catalytic activity/Vol] 56.0 U/L Critically low 73.0-393.0 [facility] Comment on above: Performed By: #### C MP, LIPA ####[facility] [address] [address]DrArgelia Tran PROF 14(COMP METB)on 023 Albumin [Mass/Vol] 3.5 g/dL Normal 3.4-5.0 [facility] Comment on above: Performed By: #### C MP, LIPA ####[facility] [address] [address]DrArgelia Tran Albumin/Globulin [Mass ratio] 1.2 {ratio} Normal [facility] Comment on above: Performed By: #### C MP, LIPA ####[facility] [address] [address]Dr. Rosa Tran ALP [Catalytic activity/Vol] 72 U/L Normal 46-116 [facility] Comment on above: Performed By: #### C MP, LIPA ####[facility] [address] [address]Dr. Rosa Tran ALT [Catalytic activity/Vol] 27 U/L Normal 16-63 [facility] Comment on above: Performed By: #### C MP, LIPA ####[facility] [address] [address]DrArgelia Tran Anion gap [Moles/Vol] 11.9 mmol/L Normal [facility] Comment on above: Performed By: #### C MP, LIPA ####[facility] [address] [place], [place] [address]Dr. Rosa Tran AST [Catalytic activity/Vol] 22 U/L Normal 15-37 [facility] Comment on above: Performed By: #### C MP, LIPA ####[facility] [address] [place], [place] [address]Dr. Rosa Tran Bilirubin [Mass/Vol] 0.3 mg/dL Normal 0.2-1.0 [facility] Comment on above: Performed By: #### C MP, LIPA ####[facility] [address] [place], [place] [address]Dr. Rosa Tran Calcium [Mass/Vol] 8.5 mg/dL Normal 8.5-10.1 [facility] Comment on above: Performed By: #### C LEYDI, LIPA ####[facility] [address] [place], [place] [address]Dr. Rosa Tran Chloride [Moles/Vol] 108 mmol/L Critically high 98-107 [facility] Comment on above: Performed By: #### C LEYDI, LIPA ####[facility] [address] [place], [place] [address]Dr. Rosa Tran CO2 [Moles/Vol] 26.9 mmol/L Normal 21.0-32.0 [facility] Comment on above: Performed By: #### C MP, LIPA ####[facility] [address] [place], [place] [address]Dr. Rosa Tran Creatinine [Mass/Vol] 0.69 mg/dL Critically low 0.70-1.30 [facility] Comment on above: Performed By: #### C MP, LIPA ####[facility] [address] [place], [place] [address]Dr. Rosa Tran EGFR-AF PARAGUAYAN >60 Normal >=60 [facility] Comment on above: Performed By: #### C MP, LIPA ####[facility] [address] [place], [place] [address]Dr. Rosa Tran EGFR-NON AF PARAGUAYAN >60 Normal >=60 [facility] Comment on above: Performed By: #### C LEYDI, LIPA ####[facility] [address] [address]Dr. Rosa Tran Globulin (S) [Mass/Vol] 2.9 g/dL Normal [facility] Comment on above: Performed By: #### C MP, LIPA ####[facility] [address] [place], [place] [address]Dr. Rosa Tran Glucose [Mass/Vol] 113 mg/dL Critically high 74-106 [facility] Comment on above: Performed By: #### C LEYDI, LIPA ####[facility] [address] [place], [place] [address]Dr. Rosa Tran Potassium [Moles/Vol] 3.8 mmol/L Normal 3.5-5.1 [facility] Comment on above: Performed By: #### C LEYDI, LIPA ####[facility] [address] [place], [place] [address]Dr. Rosa Tran Protein [Mass/Vol] 6.4 g/dL Normal 6.4-8.2 [facility] Comment on above: Performed By: #### C LEYDI, LIPA ####[facility] [address] [place], [place] [address]Dr. Rosa Tran Sodium [Moles/Vol] 143 mmol/L Normal 136-145 [facility] Comment on above: Performed By: #### C MP, LIPA ####[facility] [address] [place], [place] [address]Dr. Rosa Tran Urea nitrogen [Mass/Vol] 8.0 mg/dL Normal 7.0-18.0 [facility] Comment on above: Performed By: #### C MP, LIPA ####[facility] [address] [place], [place] [address]Dr. Rosa Tran Urea nitrogen/Creatini ne [Mass ratio] 11.6 mg/mg Normal [facility] Comment on above: Performed By: #### C MP, LIPA ####[facility] [address] [place], [place] [address]Dr. Rosa Tran Albumin [Mass/Vol] 3.2 g/dL Critically low 3.4-5.0 [facility] Comment on above: Performed By: #### C VDTBH #### [facility] [address] [address] [address] Rosa Tran Albumin/Globulin [Mass ratio] 1.2 {ratio} Normal [facility] Comment on above: Performed By: #### C VDTBH #### [facility] [address] [address] [address] Rosa Tran ALP [Catalytic activity/Vol] 75 U/L Normal 46-116 [facility] Comment on above: Performed By: #### C VDTBH #### [facility] [address] [address] [address] Rosa Tran ALT [Catalytic activity/Vol] 24 U/L Normal 16-63 [facility] Comment on above: Performed By: #### C VDTBH #### [facility] [address] [address] [address] Rosa Tran Anion gap [Moles/Vol] 10.7 mmol/L Normal [facility] Comment on above: Performed By: #### C VDTBH #### [facility] [address] [address] [address] Rosa Tran AST [Catalytic activity/Vol] 18 U/L Normal 15-37 [facility] Comment on above: Performed By: #### C VDTBH #### [facility] [address] [address] [address] Rosa Tran Bilirubin [Mass/Vol] 0.4 mg/dL Normal 0.2-1.0 [facility] Comment on above: Performed By: #### C VDTBH #### [facility] [address] [address] [address] Rosa Tran Calcium [Mass/Vol] 8.2 mg/dL Critically low 8.5-10.1 [facility] Comment on above: Performed By: #### C VDTBH #### [facility] [address] [address] [address] Rosa Tran Chloride [Moles/Vol] 106 mmol/L Normal 98-107 [facility] Comment on above: Performed By: #### C VDTBH #### [facility] [address] [place] [address] Dr. Rosa Tran CO2 [Moles/Vol] 24.8 mmol/L Normal 21.0-32.0 [facility] Comment on above: Performed By: #### C VDTBH #### [facility] [address] [place] [address] Dr. Rosa Tran Creatinine [Mass/Vol] 0.74 mg/dL Normal 0.70-1.30 [facility] Comment on above: Performed By: #### C VDTBH #### [facility] [address] [place] [address] Dr. Rosa Tran EGFR-AF PARAGUAYAN >60 Normal >=60 [facility] Comment on above: Performed By: #### C VDTBH #### [facility] [address] [place] [address] Dr. Rosa Tran EGFR-NON AF PARAGUAYAN >60 Normal >=60 [facility] Comment on above: Performed By: #### C VDTBH #### [facility] [address] [place] [address] Dr. Rosa Tran Globulin (S) [Mass/Vol] 2.7 g/dL Normal [facility] Comment on above: Performed By: #### C VDTBH #### [facility] [address] [place] [address] Dr. Rosa Tran Glucose [Mass/Vol] 111 mg/dL Critically high 74-106 [facility] Comment on above: Performed By: #### C VDTBH #### [facility] [address] [place] [address] Dr. Rosa Tran Potassium [Moles/Vol] 3.5 mmol/L Normal 3.5-5.1 [facility] Comment on above: Performed By: #### C VDTBH #### [facility] [address] [place] [address] Dr. Rosa Tran Protein [Mass/Vol] 5.9 g/dL Critically low 6.4-8.2 [facility] Comment on above: Performed By: #### C VDTBH #### [facility] [address] [address] [address] Rosa Tran Sodium [Moles/Vol] 138 mmol/L Normal 136-145 [facility] Comment on above: Performed By: #### C VDTBH #### [facility] [address] [address] [address] Rosa Tran Urea nitrogen [Mass/Vol] 9.0 mg/dL Normal 7.0-18.0 [facility] Comment on above: Performed By: #### C VDTBH #### [facility] [address] [place] [address] Dr. Rosa Tran Urea nitrogen/Creatini ne [Mass ratio] 12.2 mg/mg Normal [facility] Comment on above: Performed By: #### C VDTBH #### [facility] [address] [place] [address] Dr. Rosa Tran AMYLASEon 10-10-2022 Amylase [Catalytic activity/Vol] 75 U/L Normal 25-115 [facility] Comment on above: Performed By: #### A MY, CMP, LIPA ####[facility] [facility] [address] [address]Dr. Rosa Tran CBC AUTO DIFFon 10-10-2022 BASO # 0.1 103/ul Normal 0.0-0.1 [facility] Comment on above: Performed By: #### C BC #### [facility] [address] [place] [address] Dr. Rosa Tran Basophils/100 WBC (Bld) 0.5 % Normal 0.2-2.0 [facility] Comment on above: Performed By: #### C BC #### [facility] [address] [place] [address] Dr. Rosa Tran EO # 0.2 103/ul Normal 0.0-0.7 [facility] Comment on above: Performed By: #### C BC #### [facility] [address] [place] [address] Dr. Rosa Tran Eosinophils/100 WBC (Bld) 1.4 % Normal 0.9-7.0 [facility] Comment on above: Performed By: #### C BC #### [facility] [address] [place] [address] Dr. Rosa Tran Erythrocyte distribution width (RBC) [Ratio] 13.2 % Normal 11.0-15.0 [facility] Comment on above: Performed By: #### C BC #### [facility] [address] [place] [address] Dr. Rosa Tran Hematocrit (Bld) [Volume fraction] 42.7 % Normal 42.0-54.0 [facility] Comment on above: Performed By: #### C BC #### [facility] [address] [place] [address] Dr. Rosa Tran Hemoglobin (Bld) [Mass/Vol] 14.5 g/dL Normal 14.0-18.0 [facility] Comment on above: Performed By: #### C BC #### [facility] [address] [place] [address] Dr. Rosa Tran IG # 0.03 10e3/ul Normal 0.00-0.03 [facility] Comment on above: Performed By: #### C BC #### [facility] [address] [place] [address] Dr. Rosa Tran IG % 0.2 % Normal 0.0-0.5 [facility] Comment on above: Performed By: #### C BC #### [facility] [address] [place] [address] Dr. Rosa Tran LYMPH # 2.0 103/ul Normal 1.2-3.8 [facility] Comment on above: Performed By: #### C BC #### [facility] [address] [place] [address] Dr. Rosa Tran Lymphocytes/100 WBC (Bld) 16.1 % Critically low 20.5-60.0 [facility] Comment on above: Performed By: #### C BC #### [facility] [address] [place] [address] Dr. Rosa Tran MANUAL DIFF REQ NO Normal [facility] Comment on above: Performed By: #### C BC #### [facility] [address] [place] [address] Dr. Rosa Tran MCH (RBC) [Entitic mass] 30.4 pg Normal 25.9-34.0 [facility] Comment on above: Performed By: #### C BC #### [facility] [address] [place] [address] Dr. Rosa Tran MCHC (RBC) [Mass/Vol] 34.0 g/dL Normal 29.9-35.2 [facility] Comment on above: Performed By: #### C BC #### [facility] [address] [place] [address] Dr. Rosa Tran MCV (RBC) [Entitic vol] 89.5 fL Normal 80.0-94.0 [facility] Comment on above: Performed By: #### C BC #### [facility] [address] [place] [address] Dr. Rosa Tran MONO # 0.6 103/ul Normal 0.3-0.8 [facility] Comment on above: Performed By: #### C BC #### [facility] [address] [place] [address] Dr. Rosa Tran Monocytes/100 WBC (Bld) 4.6 % Normal 1.7-12.0 [facility] Comment on above: Performed By: #### C BC #### [facility] [address] [place] [address] Dr. Rosa Tran NEUT # 9.7 103/ul Critically high 1.4-6.[address] [facility] Comment on above: Performed By: #### C BC #### [facility] [address] [place] [address] Dr. oRsa Tran Neutrophils/100 WBC (Bld) 77.2 % Critically high 43.0-75.0 [facility] Comment on above: Performed By: #### C BC #### [facility] [address] [place] [address] Dr. Rosa Tran Platelet mean volume (Bld) [Entitic vol] 9.7 fL Normal 9.5-13.5 [facility] Comment on above: Performed By: #### C BC #### [facility] [address] [place] [address] Dr. Rosa Tran PLT 284 103/ul Normal 150-450 [facility] Comment on above: Performed By: #### C BC #### [facility] [address] [address] [address] Rosa Tran RBC 4.77 106/ul Normal 4.70-6.10 [facility] Comment on above: Performed By: #### C BC #### [facility] [address] [place] [address] Dr. Rosa Tran WBC 12.5 103/ul Critically high 4.0-11.0 [facility] Comment on above: Performed By: #### C BC #### [facility] [address] [place] [address] Dr. Rosa Tran Covid-19 PCR (CVDTB)on 10-01 SARS-CoV-2 (COVID-19) RNA VIKAS+probe Ql (Unsp spec) Not detected Normal NOT DETECTED [facility] Comment on above: Result Comment: When diagnostic [...] for this test is supported by the [place] of Health and Human Service's declaration that [...] used). Performed By: #### C VDTBH #### [facility] [address] [address] [address] Rosa Tran DRUG SCREEN RAPID (URINE)on 10-10-2022 AMP Negative Normal NEGATIVE [facility] Comment on above: Performed By: #### D RUGRPD ####[facility] [address] [address]Dr. Rosa Tran BAR Negative Normal NEGATIVE [facility] Comment on above: Performed By: #### D RUGRPD ####[facility] [address] [address]Dr. Rosa Tran BUP Negative Normal NEGATIVE [facility] Comment on above: Performed By: #### D RUGRPD ####[facility] [address] [address]Dr. Rosa Tran BZO Negative Normal NEGATIVE [facility] Comment on above: Performed By: #### D RUGRPD ####[facility] [address] [address]Dr. Rosa Tran JOSE LUIS Negative Normal NEGATIVE [facility] Comment on above: Performed By: #### D RUGRPD ####[facility] [address] [address]Dr. Rosa Tran CUT-OFFS SEE BELOW Normal [facility] Comment on above: Result Comment: AMP [...] 300 ng/mL Performed By: #### D RUGRPD ####[facility] [address] [place], [place] [address]Dr. Rosa Tran DRUG CUT HEADER DRUG CLASS TEST SYST EM CUT-OFF CONCENTRATIONS ARE FOLLOWS: Normal [facility] Comment on above: Performed By: #### D RUGRPD ####[facility] [address] [address]Dr. Roas Tran mAMP Negative Normal NEGATIVE [facility] Comment on above: Performed By: #### D RUGRPD ####[facility] [address] [address]Dr. Rosa Tran MTD Negative Normal NEGATIVE [facility] Comment on above: Performed By: #### D RUGRPD ####[facility] [address] [address]Dr. Rosa Tran OPI Negative Normal NEGATIVE [facility] Comment on above: Performed By: #### D RUGRPD ####[facility] [address] [place], [place] [address]Dr. Rosa Tran OXY Negative Normal NEGATIVE [facility] Comment on above: Performed By: #### D RUGRPD ####[facility] [address] [place], [place] [address]Dr. Rosa Tran PCP Negative Normal NEGATIVE [facility] Comment on above: Performed By: #### D RUGRPD ####[facility] [address] [place], [place] [address]Dr. Rosa Tran PPX Negative Normal NEGATIVE [facility] Comment on above: Performed By: #### D RUGRPD ####[facility] [address] [place], [place] [address]Dr. Rosa Tran TCA Positive Abnormal NEGATIVE [facility] Comment on above: Performed By: #### D RUGRPD ####[facility] [address] [address]Dr. Rosa Tran THC Positive Abnormal NEGATIVE [facility] Comment on above: Performed By: #### D RUGRPD ####[facility] [address] [place], [place] [address]Dr. Rosa Tran LACTATE/LACTIC ACIDon 2022 Lactate [Moles/Vol] 1.8 mmol/L Normal 0.4-2.0 [facility] Comment on above: Performed By: #### L ACT ####[facility] [address] [address]Dr. Rosa Tran LIPASEon 10-10-2022 Lipase [Catalytic activity/Vol] 84.0 U/L Normal 73.0-393.0 [facility] Comment on above: Performed By: #### A MY, CMP, LIPA ####[facility] [address] [address]Dr. Rosa Tran PROF 14(COMP METB)on 023 Albumin [Mass/Vol] 4.2 g/dL Normal 3.4-5.0 [facility] Comment on above: Performed By: #### C VDTBH #### [facility] [address] [place] [address] Dr. Rosa Tran Albumin/Globulin [Mass ratio] 1.3 {ratio} Normal [facility] Comment on above: Performed By: #### C VDTBH #### [facility] [address] [place] [address] Dr. Rosa Tran ALP [Catalytic activity/Vol] 104 U/L Normal 46-116 [facility] Comment on above: Performed By: #### C VDTBH #### [facility] [address] [place] [address] Dr. Rosa Tran ALT [Catalytic activity/Vol] 32 U/L Normal 16-63 [facility] Comment on above: Performed By: #### C VDTBH #### [facility] [address] [address] [address] Rosa Tran Anion gap [Moles/Vol] 12.6 mmol/L Normal [facility] Comment on above: Performed By: #### C VDTBH #### [facility] [address] [place] [address] Dr. Rosa Tran AST [Catalytic activity/Vol] 18 U/L Normal 15-37 [facility] Comment on above: Performed By: #### C VDTBH #### [facility] [address] [place] [address] Dr. Rosa Tran Bilirubin [Mass/Vol] 0.3 mg/dL Normal 0.2-1.0 [facility] Comment on above: Performed By: #### C VDTBH #### [facility] [address] [place] [address] Dr. Rosa Tran Calcium [Mass/Vol] 9.3 mg/dL Normal 8.5-10.1 [facility] Comment on above: Performed By: #### C VDTBH #### [facility] [address] [place] [address] Dr. Rosa Tran Chloride [Moles/Vol] 104 mmol/L Normal 98-107 [facility] Comment on above: Performed By: #### C VDTBH #### [facility] [address] [place] [address] Dr. Rosa Tran CO2 [Moles/Vol] 26.2 mmol/L Normal 21.0-32.0 [facility] Comment on above: Performed By: #### C VDTBH #### [facility] [address] [place] [address] Dr. Rosa Tran Creatinine [Mass/Vol] 1.00 mg/dL Normal 0.70-1.30 [facility] Comment on above: Performed By: #### C VDTBH #### [facility] [address] [place] [address] Dr. Rosa Tran EGFR-AF PARAGUAYAN >60 Normal >=60 [facility] Comment on above: Performed By: #### C VDTBH #### [facility] [address] [place] [address] Dr. Rosa Tran EGFR-NON AF PARAGUAYAN >60 Normal >=60 [facility] Comment on above: Performed By: #### C VDTBH #### [facility] [address] [place] [address] Dr. Rosa Tran Globulin (S) [Mass/Vol] 3.3 g/dL Normal [facility] Comment on above: Performed By: #### C VDTBH #### [facility] [address] [place] [address] Dr. Rosa Tran Glucose [Mass/Vol] 136 mg/dL Critically high 74-106 [facility] Comment on above: Performed By: #### C VDTBH #### [facility] [address] [address] [address] Rosa Tran Potassium [Moles/Vol] 3.8 mmol/L Normal 3.5-5.1 [facility] Comment on above: Performed By: #### C VDTBH #### [facility] [address] [place] [address] Dr. Rosa Tran Protein [Mass/Vol] 7.5 g/dL Normal 6.4-8.2 [facility] Comment on above: Performed By: #### C VDTBH #### [facility] [address] [place] [address] Dr. Rosa Tran Sodium [Moles/Vol] 139 mmol/L Normal 136-145 [facility] Comment on above: Performed By: #### C VDTBH #### [facility] [address] [place] [address] Dr. Rosa Tran Urea nitrogen [Mass/Vol] 11.0 mg/dL Normal 7.0-18.0 [facility] Comment on above: Performed By: #### C VDTBH #### [facility] [address] [place] [address] Dr. Rosa Tran Urea nitrogen/Creatini ne [Mass ratio] 11.0 mg/mg Normal [facility] Comment on above: Performed By: #### C VDTBH #### [facility] [address] [place] [address] Dr. Rosa Tran XR ABD FLAT UP_PA [...] GUERA HUNTER Date: 2022-10-10 05:31 Normal [facility] US VENOUS DOPPLER R Jerry US VENOUS [...] MISAEL DENNY Date: 2022-10-07 11:01 Normal [facility] AMMONIAon 08-14-2022 Ammonia (P) [Moles/Vol] 50 umol/L Critically high [facility] Comment on above: Performed By: #### A MM #### [facility] [address] [address] [address] Rosa Tran AMYLASEon 08-14-2022 Amylase [Catalytic activity/Vol] 39 U/L Normal 25-115 [facility] Comment on above: Performed By: #### A MY, CMP, LIPA ####[facility] [address] [address]Dr. Rosa Tran CBC AUTO DIFFon 08-14-2022 BASO # 0.1 103/ul Normal 0.0-0.1 [facility] Comment on above: Performed By: #### C BC ####[facility] [address] [address]Dr. Rosa Tran Basophils/100 WBC (Bld) 0.7 % Normal 0.2-2.0 [facility] Comment on above: Performed By: #### C BC ####[facility] [address] [address]Dr. Rosa Tran EO # 0.1 103/ul Normal 0.0-0.7 [facility] Comment on above: Performed By: #### C BC ####[facility] [address] [address]Dr. Rosa Tran Eosinophils/100 WBC (Bld) 0.7 % Critically low 0.9-7.0 [facility] Comment on above: Performed By: #### C BC ####[facility] [address] [address]Dr. Rosa Tran Erythrocyte distribution width (RBC) [Ratio] 13.2 % Normal 11.0-15.0 [facility] Comment on above: Performed By: #### C BC ####[facility] [address] [address]Dr. Rosa Tran Hematocrit (Bld) [Volume fraction] 33.1 % Critically low 42.0-54.0 [facility] Comment on above: Performed By: #### C BC ####[facility] [address] [place], [place] [address]Dr. Rosa Tran Hemoglobin (Bld) [Mass/Vol] 11.2 g/dL Critically low 14.0-18.0 [facility] Comment on above: Performed By: #### C BC ####[facility] [address] [place], [place] [address]Dr. Rosa Tran IG # 0.02 10e3/ul Normal 0.00-0.03 [facility] Comment on above: Performed By: #### C BC ####[facility] [address] [place], [place] [address]Dr. Rosa Tran IG % 0.3 % Normal 0.0-0.5 [facility] Comment on above: Performed By: #### C BC ####[facility] [address] [place], [place] [address]Dr. Rosa Tran LYMPH # 2.9 103/ul Normal 1.2-3.8 [facility] Comment on above: Performed By: #### C BC ####[facility] [address]uc[address] [place], [place] [address]Dr. Rosa Tran Lymphocytes/100 WBC (Bld) 39.6 % Normal 20.5-60.0 [facility] Comment on above: Performed By: #### C BC ####[facility] [address] [address]Dr. Rosa Marc MANUAL DIFF REQ NO Normal [facility] Comment on above: Performed By: #### C BC ####[facility] [address] [address]Dr. Rosa Tran MCH (RBC) [Entitic mass] 30.6 pg Normal 25.9-34.0 [facility] Comment on above: Performed By: #### C BC ####[facility] [address] [place], [place] [address]Dr. Rosa Marc MCHC (RBC) [Mass/Vol] 33.8 g/dL Normal 29.9-35.2 [facility] Comment on above: Performed By: #### C BC ####[facility] Tue[address]fungrv[address] [place], [place] [address]Dr. Robynyoselin Tran MCV (RBC) [Entitic vol] 90.4 fL Normal 80.0-94.0 [facility] Comment on above: Performed By: #### C BC ####[facility] [address] [place], [place] [address]Dr. Rosa Marc MONO # 0.6 103/ul Normal 0.3-0.8 [facility] Comment on above: Performed By: #### C BC ####[facility] [address] [place], [place] [address]Dr. Rosa Tran Monocytes/100 WBC (Bld) 7.6 % Normal 1.7-12.0 [facility] Comment on above: Performed By: #### C BC ####[facility] [address] [place], [place] [address]Dr. Robynyoselin Marc NEUT # 3.8 103/ul Normal 1.4-6.5 [facility] Comment on above: Performed By: #### C BC ####[facility] [address]ef[address]ab[address] [place], [place] [address]Dr. Rosa Tran Neutrophils/100 WBC (Bld) 51.1 % Normal 43.0-75.0 [facility] Comment on above: Performed By: #### C BC ####[facility] Cf[address]kt[address] [place], [place] [address]Dr. oRsa Tran Platelet mean volume (Bld) [Entitic vol] 9.7 fL Normal 9.5-13.5 [facility] Comment on above: Performed By: #### C BC ####[facility] [address] [address]Dr. Rosa Tran PLT 208 103/ul Normal 150-450 [facility] Comment on above: Performed By: #### C BC ####[facility] Rx[address]ivuk[address] [address]Dr. Rosa Tran RBC 3.66 106/ul Critically low 4.70-6.[address] [facility] Comment on above: Performed By: #### C BC ####[facility] [address] [address]Dr. Rosa Tran WBC 7.3 103/ul Normal 4.0-11.0 [facility] Comment on above: Performed By: #### C BC ####[facility] [address] [address]Dr. Rosa Marc LIPASEon 08-14-2022 Lipase [Catalytic activity/Vol] 60.0 U/L Critically low 73.0-393.0 [facility] Comment on above: Performed By: #### A MY, CMP, LIPA ####[facility] [address] [address]Dr. Robynyoselin Tran PROF 14(COMP METB)on 023 Albumin [Mass/Vol] 2.9 g/dL Critically low 3.4-5.0 [facility] Comment on above: Performed By: #### A MY, CMP, LIPA ####[facility] [address] [address]Dr. Rosa Tran Albumin/Globulin [Mass ratio] 1.2 {ratio} Normal [facility] Comment on above: Performed By: #### A MY, CMP, LIPA ####[facility] [address] [address]Dr. Robynyoselin Tran ALP [Catalytic activity/Vol] 64 U/L Normal 46-116 [facility] Comment on above: Performed By: #### A MY, CMP, LIPA ####[facility] [address] [address]Dr. Rosa Tran ALT [Catalytic activity/Vol] 41 U/L Normal 16-63 [facility] Comment on above: Performed By: #### A MY, CMP, LIPA ####[facility] [address]laata[address] [address]Dr. Rosa Tran Anion gap [Moles/Vol] 8.7 mmol/L Normal [facility] Comment on above: Performed By: #### A MY, CMP, LIPA ####[facility] [address] [place], [place] [address]Dr. Rosa Tran AST [Catalytic activity/Vol] 31 U/L Normal 15-37 [facility] Comment on above: Performed By: #### A MY, CMP, LIPA ####[facility] [address] [place], [place] [address]Dr. Rosa Tran Bilirubin [Mass/Vol] 0.5 mg/dL Normal 0.2-1.0 [facility] Comment on above: Performed By: #### A MY, CMP, LIPA ####[facility] [address]ft[address] [place], [place] [address]Dr. Rosa Tran Calcium [Mass/Vol] 8.3 mg/dL Critically low 8.5-10.1 [facility] Comment on above: Performed By: #### A MY, CMP, LIPA ####[facility] [address] [address]Dr. Rosa Tran Chloride [Moles/Vol] 110 mmol/L Critically high 98-107 [facility] Comment on above: Performed By: #### A MY, CMP, LIPA ####[facility] [address] [place], [place] [address]Dr. Rosa Tran CO2 [Moles/Vol] 27.0 mmol/L Normal 21.0-32.0 [facility] Comment on above: Performed By: #### A MY, CMP, LIPA ####[facility] [address] [place], [place] [address]Dr. Rosa Tran Creatinine [Mass/Vol] 0.77 mg/dL Normal 0.70-1.30 [facility] Comment on above: Performed By: #### A MY, CMP, LIPA ####[facility] [address] [address]Dr. Rosa Tran EGFR-AF PARAGUAYAN >60 Normal >=60 [facility] Comment on above: Performed By: #### A MY, CMP, LIPA ####[facility] [address] [address]Dr. Rosa Tran EGFR-NON AF PARAGUAYAN >60 Normal >=60 [facility] Comment on above: Performed By: #### A MY, CMP, LIPA ####[facility] [address] [address]Dr. Rosa Tran Globulin (S) [Mass/Vol] 2.4 g/dL Normal [facility] Comment on above: Performed By: #### A MY, CMP, LIPA ####[facility] [address]uz[address]ne[address] [address]Dr. Rosa Tran Glucose [Mass/Vol] 128 mg/dL Critically high 74-106 [facility] Comment on above: Performed By: #### A MY, CMP, LIPA ####[facility] [address]ftalypiqi[address] [address]Dr. Rosa Tran Potassium [Moles/Vol] 3.6 mmol/L Normal 3.5-5.1 [facility] Comment on above: Performed By: #### A MY, CMP, LIPA ####[facility] [address]tr[address] [address]Dr. Rosa Tran Protein [Mass/Vol] 5.3 g/dL Critically low 6.4-8.2 [facility] Comment on above: Performed By: #### A MY, CMP, LIPA ####[facility] [address]xmcwnzm[address] [address]Dr. Rosa Tran Sodium [Moles/Vol] 142 mmol/L Normal 136-145 [facility] Comment on above: Performed By: #### A MY, CMP, LIPA ####[facility] E[address]ibkyq[address] [address]Dr. Rosa Tran Urea nitrogen [Mass/Vol] 6.0 mg/dL Critically low 7.0-18.0 [facility] Comment on above: Performed By: #### A MY, CMP, LIPA ####[facility] [address]xpmfbpe[address] [address]Dr. Rosa Tran Urea nitrogen/Creatini ne [Mass ratio] 7.8 mg/mg Normal [facility] Comment on above: Performed By: #### A MY, CMP, LIPA ####[facility] [address] [address]Dr. Rosa Tran AMMONIAon 08-13-2022 Ammonia (P) [Moles/Vol] 37 umol/L Critically high -32 [facility] Comment on above: Performed By: #### C VDTB #### [facility] [address] [place] [address] Dr. Rosa Tran AMYLASEon 08-13-2022 Amylase [Catalytic activity/Vol] 42 U/L Normal 25-115 [facility] Comment on above: Performed By: #### A MY, LIPA, CMP ####[facility] [address] [place], [place] [address]Dr. Rosa Tran CBC AUTO DIFFon 08-13-2022 BASO # 0.0 103/ul Normal 0.0-0.1 [facility] Comment on above: Performed By: #### C VDTBH #### [facility] [address] [place] [address] Dr. Rosa Tran Basophils/100 WBC (Bld) 0.3 % Normal 0.2-2.0 [facility] Comment on above: Performed By: #### C VDTBH #### [facility] [address] [place] [address] Dr. Rosa Tran EO # 0.0 103/ul Normal 0.0-0.7 [facility] Comment on above: Performed By: #### C VDTBH #### [facility] [address] [place] [address] Dr. Rosa Tran Eosinophils/100 WBC (Bld) 0.1 % Critically low 0.9-7.0 [facility] Comment on above: Performed By: #### C VDTBH #### [facility] [address] [place] [address] Dr. Rosa Tran Erythrocyte distribution width (RBC) [Ratio] 13.2 % Normal 11.0-15.0 [facility] Comment on above: Performed By: #### C VDTBH #### [facility] [address] [place] [address] Dr. Rosa Tran Hematocrit (Bld) [Volume fraction] 32.5 % Critically low 42.0-54.0 [facility] Comment on above: Performed By: #### C VDTBH #### [facility] [address] [place] [address] Dr. Rosa Tran Hemoglobin (Bld) [Mass/Vol] 11.3 g/dL Critically low 14.0-18.0 [facility] Comment on above: Performed By: #### C VDTBH #### [facility] [address] [place] [address] Dr. Rosa Tran IG # 0.02 10e3/ul Normal 0.00-0.03 [facility] Comment on above: Performed By: #### C VDTBH #### [facility] [address] [place] [address] Dr. Rosa Tran IG % 0.3 % Normal 0.0-0.5 [facility] Comment on above: Performed By: #### C VDTBH #### [facility] [address] [place] [address] Dr. Rosa Tran LYMPH # 1.8 103/ul Normal 1.2-3.8 [facility] Comment on above: Performed By: #### C VDTBH #### [facility] [address] [place] [address] Dr. Rosa Tran Lymphocytes/100 WBC (Bld) 23.0 % Normal 20.5-60.0 [facility] Comment on above: Performed By: #### C VDTBH #### [facility] [address] [place] [address] Dr. Rosa Tran MANUAL DIFF REQ NO Normal [facility] Comment on above: Performed By: #### C VDTBH #### [facility] [address] [place] [address] Dr. Rosa Tran MCH (RBC) [Entitic mass] 31.5 pg Normal 25.9-34.0 [facility] Comment on above: Performed By: #### C VDTBH #### [facility] [address] [place] [address] Dr. Rosa Tran MCHC (RBC) [Mass/Vol] 34.8 g/dL Normal 29.9-35.2 [facility] Comment on above: Performed By: #### C VDTBH #### [facility] [address] [place] [address] Dr. Rosa Tran MCV (RBC) [Entitic vol] 90.5 fL Normal 80.0-94.0 [facility] Comment on above: Performed By: #### C VDTBH #### [facility] [address] [place] [address] Dr. Rosa Tran MONO # 0.5 103/ul Normal 0.3-0.8 [facility] Comment on above: Performed By: #### C VDTBH #### [facility] [address] [place] [address] Dr. Rosa Tran Monocytes/100 WBC (Bld) 6.8 % Normal 1.7-12.0 [facility] Comment on above: Performed By: #### C VDTBH #### [facility] [address] [place] [address] Dr. Rosa Tran NEUT # 5.4 103/ul Normal 1.4-6.5 [facility] Comment on above: Performed By: #### C VDTBH #### [facility] [address] [place] [address] Dr. Rosa Tran Neutrophils/100 WBC (Bld) 69.5 % Normal 43.0-75.0 [facility] Comment on above: Performed By: #### C VDTBH #### [facility] [address] [address] [address] Rosa Tran Platelet mean volume (Bld) [Entitic vol] 9.9 fL Normal 9.5-13.5 [facility] Comment on above: Performed By: #### C VDTBH #### [facility] [address] [address] [address] Rosa Tran PLT 197 103/ul Normal 150-450 [facility] Comment on above: Performed By: #### C VDTBH #### [facility] [address] [address] [address] Rosa Tran RBC 3.59 106/ul Critically low 4.70-6.[address] [facility] Comment on above: Performed By: #### C VDTBH #### [facility] [address] [address] [address] Rosa Tran WBC 7.8 103/ul Normal 4.0-11.0 [facility] Comment on above: Performed By: #### C VDTBH #### [facility] [address] [address] [address] Rosa Tran LIPASEon 08-13-2022 Lipase [Catalytic activity/Vol] 52.0 U/L Critically low 73.0-393.0 [facility] Comment on above: Performed By: #### A CARMEN LIPA, CMP ####[facility] [address] [address]Dr. Rosa Tran PROF 14(COMP METB)on 023 Albumin [Mass/Vol] 3.3 g/dL Critically low 3.4-5.0 [facility] Comment on above: Performed By: #### A MY, LIPA, CMP ####[facility] [address] [address]Dr. Rosa Tran Albumin/Globulin [Mass ratio] 1.4 {ratio} Normal [facility] Comment on above: Performed By: #### A MY, LIPA, CMP ####[facility] [address] [address]Dr. Rosa Tran ALP [Catalytic activity/Vol] 70 U/L Normal 46-116 [facility] Comment on above: Performed By: #### A ADRIANO MORALES, CMP ####[facility] [address] [address]Dr. Rosa Tran ALT [Catalytic activity/Vol] 31 U/L Normal 16-63 [facility] Comment on above: Performed By: #### A CARMEN LIPA, CMP ####[facility] [address] [address]Dr. Rosa Tran Anion gap [Moles/Vol] 12.0 mmol/L Normal [facility] Comment on above: Performed By: #### A CARMEN LIPA, CMP ####[facility] [address] [address]Dr. Rosa Tran AST [Catalytic activity/Vol] 30 U/L Normal 15-37 [facility] Comment on above: Performed By: #### A CARMEN LIPA, CMP ####[facility] [address] [address]Dr. Rosa Tran Bilirubin [Mass/Vol] 0.5 mg/dL Normal 0.2-1.0 [facility] Comment on above: Performed By: #### A ADRIANO MORALES, CMP ####[facility] [address] [address]Dr. Rosa Tran Calcium [Mass/Vol] 8.2 mg/dL Critically low 8.5-10.1 [facility] Comment on above: Performed By: #### A CARMEN LIPA, CMP ####[facility] [address] [address]Dr. Rosa Tran Chloride [Moles/Vol] 108 mmol/L Critically high 98-107 [facility] Comment on above: Performed By: #### A CARMEN LIPA, CMP ####[facility] [address] [address]Dr. Rosa Tran CO2 [Moles/Vol] 25.5 mmol/L Normal 21.0-32.0 [facility] Comment on above: Performed By: #### A CARMEN LIPA, CMP ####[facility] [address] [id number]. Rosa Tran Creatinine [Mass/Vol] 0.68 mg/dL Critically low 0.70-1.30 [facility] Comment on above: Performed By: #### A MY, LIPA, CMP ####[facility] [address] [id number]. Rosa Tran EGFR-AF PARAGUAYAN >60 Normal >=60 [facility] Comment on above: Performed By: #### A MY, LIPA, CMP ####[facility] [address] [id number]. Rosa Tran EGFR-NON AF PARAGUAYAN >60 Normal >=60 [facility] Comment on above: Performed By: #### A MY, LIPA, CMP ####[facility] [address] [place], [place] [address]Dr. Rosa Tran Globulin (S) [Mass/Vol] 2.4 g/dL Normal [facility] Comment on above: Performed By: #### A MY, LIPA, CMP ####[facility] [address] [address]Dr. Rosa Tran Glucose [Mass/Vol] 109 mg/dL Critically high 74-106 [facility] Comment on above: Performed By: #### A MY, LIPA, CMP ####[facility] [address] [place], [place] [address]Dr. Rosa Tran Potassium [Moles/Vol] 3.5 mmol/L Normal 3.5-5.1 [facility] Comment on above: Performed By: #### A MY, LIPA, CMP ####[facility] [address] [place], [place] [address]Dr. Rosa Tran Protein [Mass/Vol] 5.7 g/dL Critically low 6.4-8.2 [facility] Comment on above: Performed By: #### A MY, LIPA, CMP ####[facility] [address] [address]Dr. Rosa Tran Sodium [Moles/Vol] 142 mmol/L Normal 136-145 [facility] Comment on above: Performed By: #### A CARMEN LIPA, CMP ####[facility] [address] [address]Dr. Rosa Tran Urea nitrogen [Mass/Vol] 9.0 mg/dL Normal 7.0-18.0 [facility] Comment on above: Performed By: #### A MY LIPA, CMP ####[facility] [address] [address]DrArgelia Tran Urea nitrogen/Creatini ne [Mass ratio] 13.2 mg/mg Normal [facility] Comment on above: Performed By: #### A ADRIANO MORALES, CMP ####[facility] [address] [address]DrArgelia Tran CBC AUTO DIFFon 08-12-2022 BASO # 0.0 103/ul Normal 0.0-0.1 [facility] Comment on above: Performed By: #### C VDTB #### [facility] [address] [place] [address] Dr. Rosa Tran Basophils/100 WBC (Bld) 0.3 % Normal 0.2-2.0 [facility] Comment on above: Performed By: #### C VDTBH #### [facility] [address] [place] [address] Dr. Rosa Tran EO # 0.0 103/ul Normal 0.0-0.7 [facility] Comment on above: Performed By: #### C VDTBH #### [facility] [address] [place] [address] Dr. Rosa Tran Eosinophils/100 WBC (Bld) 0.0 % Critically low 0.9-7.0 [facility] Comment on above: Performed By: #### C VDTBH #### [facility] [address] [place] [address] Dr. Rosa Tran Erythrocyte distribution width (RBC) [Ratio] 13.0 % Normal 11.0-15.0 [facility] Comment on above: Performed By: #### C VDTBH #### [facility] [address] [place] [address] Dr. Rosa Tran Hematocrit (Bld) [Volume fraction] 36.9 % Critically low 42.0-54.0 [facility] Comment on above: Performed By: #### C VDTBH #### [facility] [address] [place] [address] Dr. Rosa Tran Hemoglobin (Bld) [Mass/Vol] 12.9 g/dL Critically low 14.0-18.0 [facility] Comment on above: Performed By: #### C VDTBH #### [facility] [address] [place] [address] Dr. Rosa Tran IG # 0.04 10e3/ul Critically high 0.00-0.[address] [facility] Comment on above: Performed By: #### C VDTBH #### [facility] [address] [place] [address] Dr. Rosa Tran IG % 0.3 % Normal 0.0-0.5 [facility] Comment on above: Performed By: #### C VDTBH #### [facility] [address] [place] [address] Dr. Rosa Tran LYMPH # 1.4 103/ul Normal 1.2-3.8 [facility] Comment on above: Performed By: #### C VDTBH #### [facility] [address] [place] [address] Dr. Rosa Tran Lymphocytes/100 WBC (Bld) 11.4 % Critically low 20.5-60.0 [facility] Comment on above: Performed By: #### C VDTBH #### [facility] [address] [place] [address] Dr. Rosa Tran MANUAL DIFF REQ NO Normal [facility] Comment on above: Performed By: #### C VDTBH #### [facility] [address] [place] [address] Dr. Rosa Tran MCH (RBC) [Entitic mass] 30.8 pg Normal 25.9-34.0 [facility] Comment on above: Performed By: #### C VDTBH #### [facility] [address] [place] [address] Dr. Rosa Tran MCHC (RBC) [Mass/Vol] 35.0 g/dL Normal 29.9-35.2 [facility] Comment on above: Performed By: #### C VDTBH #### [facility] [address] [place] [address] Dr. Rosa Tran MCV (RBC) [Entitic vol] 88.1 fL Normal 80.0-94.0 [facility] Comment on above: Performed By: #### C VDTBH #### [facility] [address] [place] [address] Dr. Rosa rTan MONO # 0.3 103/ul Normal 0.3-0.8 [facility] Comment on above: Performed By: #### C VDTBH #### [facility] [address] [place] [address] Dr. Rosa Tran Monocytes/100 WBC (Bld) 2.7 % Normal 1.7-12.0 [facility] Comment on above: Performed By: #### C VDTBH #### [facility] [address] [place] [address] Dr. Rosa Tran NEUT # 10.1 103/ul Critically high 1.4-6.5 [facility] Comment on above: Performed By: #### C VDTBH #### [facility] [address] [place] [address] Dr. Rosa Tran Neutrophils/100 WBC (Bld) 85.3 % Critically high 43.0-75.0 [facility] Comment on above: Performed By: #### C VDTBH #### [facility] [address] [place] [address] Dr. Rosa Tran Platelet mean volume (Bld) [Entitic vol] 10.2 fL Normal 9.5-13.5 [facility] Comment on above: Performed By: #### C VDTBH #### [facility] [address] [place] [address] Dr. Rosa Tran PLT 248 103/ul Normal 150-450 [facility] Comment on above: Performed By: #### C VDTBH #### [facility] [address] [place], [place] [address] Dr. Rosa Tran RBC 4.19 106/ul Critically low 4.70-6.10 [facility] Comment on above: Performed By: #### C VDTBH #### [facility] [address] [place], [place] [address] Dr. Rosa Tran WBC 11.8 103/ul Critically high 4.0-11.0 [facility] Comment on above: Performed By: #### C VDTBH #### [facility] [address] [place], [place] [address] Dr. Rosa Tran CTA ABD/PELVIS WO W [...] ALIYAH LAL Date: 2022-08-12 08:48 Normal [facility] Covid-19 PCR (CVDTB)on 08-03 SARS-CoV-2 (COVID-19) RNA VIKAS+probe Ql (Unsp spec) Not detected Normal NOT DETECTED [facility] Comment on above: Result Comment: When diagnostic [...] for this test is supported by the [place] of Health and Human Service's declaration that [...] used). Performed By: #### C VDTBH #### [facility] [address] [place] [address] Dr. Rosa Tran DRUG SCREEN RAPID (URINE)on 08-12-2022 AMP Negative Normal NEGATIVE [facility] Comment on above: Performed By: #### D RUGRPD #### [facility] [address] [address] [address] Rosa Tran BAR Negative Normal NEGATIVE [facility] Comment on above: Performed By: #### D RUGRPD #### [facility] [address] [address] [address] Rosa Tran BUP Negative Normal NEGATIVE [facility] Comment on above: Performed By: #### D RUGRPD #### [facility] [address] [address] [address] Rosa Tran BZO Negative Normal NEGATIVE [facility] Comment on above: Performed By: #### D RUGRPD #### [facility] [address] [address] [address] Rosa Tran JOSE LUIS Negative Normal NEGATIVE [facility] Comment on above: Performed By: #### D RUGRPD #### [facility] [address] [place] [address] Dr. Rosa Tran CUT-OFFS SEE BELOW Normal [facility] Comment on above: Result Comment: AMP [...] ng/mL Performed By: #### D RUGRPD #### [facility] [address] [place] [address] Dr. Rosa Tran DRUG CUT HEADER DRUG CLASS TEST SYST EM CUT-OFF CONCENTRATIONS ARE FOLLOWS: Normal [facility] Comment on above: Performed By: #### D RUGRPD #### [facility] [address] [place] [address] Dr. Rosa Tran mAMP Negative Normal NEGATIVE [facility] Comment on above: Performed By: #### D RUGRPD #### [facility] [address] [place] [address] Dr. Rosa Tran MTD Negative Normal NEGATIVE [facility] Comment on above: Performed By: #### D RUGRPD #### [facility] [address] [place] [address] Dr. Rosa Tran OPI Negative Normal NEGATIVE [facility] Comment on above: Performed By: #### D RUGRPD #### [facility] [address] [place] [address] Dr. Rosa Tran OXY Negative Normal NEGATIVE [facility] Comment on above: Performed By: #### D RUGRPD #### [facility] [address] [address] [address] Rosa Tran PCP Negative Normal NEGATIVE [facility] Comment on above: Performed By: #### D RUGRPD #### [facility] [address] [place] [address] Dr. Rosa Tran PPX Negative Normal NEGATIVE [facility] Comment on above: Performed By: #### D RUGRPD #### [facility] [address] [address] [address] Rosa Tran TCA Positive Abnormal NEGATIVE [facility] Comment on above: Performed By: #### D RUGRPD #### [facility] [address] [place] [address] Dr. Rosa Tran THC Positive Abnormal NEGATIVE [facility] Comment on above: Performed By: #### D RUGRPD #### [facility] [address] [place] [address] Dr. Rosa Tran LACTATE/LACTIC ACIDon 2022 Lactate [Moles/Vol] 1.1 mmol/L Normal 0.4-1.9 [facility] Comment on above: Performed By: #### L ACT ####[facility] [address] [address]Dr. Rosa Tran LIPASEon 08-12-2022 Lipase [Catalytic activity/Vol] 55.0 U/L Critically low 73.0-393.0 [facility] Comment on above: Performed By: #### C VDTBH #### [facility] [address] [place] [address] Dr. Rosa Tran PROF 14(COMP METB)on 023 Albumin [Mass/Vol] 4.0 g/dL Normal 3.4-5.0 [facility] Comment on above: Performed By: #### C VDTBH #### [facility] [address] [place] [address] Dr. Rosa Tran Albumin/Globulin [Mass ratio] 1.3 {ratio} Normal [facility] Comment on above: Performed By: #### C VDTBH #### [facility] [address] [place] [address] Dr. Rosa Tran ALP [Catalytic activity/Vol] 94 U/L Normal 46-116 [facility] Comment on above: Performed By: #### C VDTBH #### [facility] [address] [place] [address] Dr. Rosa Tran ALT [Catalytic activity/Vol] 32 U/L Normal 16-63 [facility] Comment on above: Performed By: #### C VDTBH #### [facility] [address] [address] [address] Rosa Tran Anion gap [Moles/Vol] 12.2 mmol/L Normal [facility] Comment on above: Performed By: #### C VDTBH #### [facility] [address] [place] [address] Dr. Rosa Tran AST [Catalytic activity/Vol] 23 U/L Normal 15-37 [facility] Comment on above: Performed By: #### C VDTBH #### [facility] [address] [place] [address] Dr. Rosa Tran Bilirubin [Mass/Vol] 0.5 mg/dL Normal 0.2-1.0 [facility] Comment on above: Performed By: #### C VDTBH #### [facility] [address] [place] [address] Dr. Rosa Tran Calcium [Mass/Vol] 9.4 mg/dL Normal 8.5-10.1 [facility] Comment on above: Performed By: #### C VDTBH #### [facility] [address] [place] [address] Dr. Rosa Tran Chloride [Moles/Vol] 106 mmol/L Normal 98-107 [facility] Comment on above: Performed By: #### C VDTBH #### [facility] [address] [place] [address] Dr. Rosa Tran CO2 [Moles/Vol] 25.3 mmol/L Normal 21.0-32.0 [facility] Comment on above: Performed By: #### C VDTBH #### [facility] [address] [address] [address] Rosa Tran Creatinine [Mass/Vol] 0.76 mg/dL Normal 0.70-1.30 [facility] Comment on above: Performed By: #### C VDTBH #### [facility] [address] [address] [address] Rosa Tran EGFR-AF PARAGUAYAN >60 Normal >=60 [facility] Comment on above: Performed By: #### C VDTBH #### [facility] [address] [address] [address] Rosa Tran EGFR-NON AF PARAGUAYAN >60 Normal >=60 [facility] Comment on above: Performed By: #### C VDTBH #### [facility] [address] [place] [address] Dr. Rosa Tran Globulin (S) [Mass/Vol] 3.0 g/dL Normal [facility] Comment on above: Performed By: #### C VDTBH #### [facility] [address] [place] [address] Dr. Rosa Tran Glucose [Mass/Vol] 129 mg/dL Critically high 74-106 [facility] Comment on above: Performed By: #### C VDTBH #### [facility] [address] [place] [address] Dr. Rosa Tran Potassium [Moles/Vol] 3.5 mmol/L Normal 3.5-5.1 [facility] Comment on above: Performed By: #### C VDTBH #### [facility] [address] [place] [address] Dr. Rosa Tran Protein [Mass/Vol] 7.0 g/dL Normal 6.4-8.2 [facility] Comment on above: Performed By: #### C VDTBH #### [facility] [address] [place] [address] Dr. Rosa Tran Sodium [Moles/Vol] 140 mmol/L Normal 136-145 [facility] Comment on above: Performed By: #### C VDTBH #### [facility] [address] [place] [address] Dr. Rosa Tran Urea nitrogen [Mass/Vol] 11.0 mg/dL Normal 7.0-18.0 [facility] Comment on above: Performed By: #### C VDTBH #### [facility] [address] [place] [address] Dr. Rosa Tran Urea nitrogen/Creatini ne [Mass ratio] 14.5 mg/mg Normal [facility] Comment on above: Performed By: #### C VDTBH #### [facility] [address] [place] [address] Dr. Rosa Tran AMYLASEon 08-11-2022 Amylase [Catalytic activity/Vol] 67 U/L Normal 25-115 [facility] Comment on above: Performed By: #### C VDTBH #### [facility] [address] [place] [address] Dr. Rosa Tran CBC AUTO DIFFon 08-11-2022 BASO # 0.1 103/ul Normal 0.0-0.1 [facility] Comment on above: Performed By: #### C VDTBH #### [facility] [address] [place] [address] Dr. Rosa Tran Basophils/100 WBC (Bld) 0.4 % Normal 0.2-2.0 [facility] [facility] Comment on above: Performed By: #### C VDTBH #### [facility] [address] [place] [address] Dr. Rosa Tran EO # 0.1 103/ul Normal 0.0-0.7 [facility] Comment on above: Performed By: #### C VDTBH #### [facility] [address] [place] [address] Dr. Rosa Tran Eosinophils/100 WBC (Bld) 0.6 % Critically low 0.9-7.0 [facility] Comment on above: Performed By: #### C VDTBH #### [facility] [address] [place] [address] Dr. Rosa Tran Erythrocyte distribution width (RBC) [Ratio] 12.9 % Normal 11.0-15.0 [facility] Comment on above: Performed By: #### C VDTBH #### [facility] [address] [place] [address] Dr. Rosa Tran Hematocrit (Bld) [Volume fraction] 38.4 % Critically low 42.0-54.0 [facility] Comment on above: Performed By: #### C VDTBH #### [facility] [address] [place] [address] Dr. Rosa Tran Hemoglobin (Bld) [Mass/Vol] 13.1 g/dL Critically low 14.0-18.0 [facility] Comment on above: Performed By: #### C VDTBH #### [facility] [address] [place] [address] Dr. Rosa Tran IG # 0.05 10e3/ul Critically high 0.00-0.[address] [facility] Comment on above: Performed By: #### C VDTBH #### [facility] [address] [place] [address] Dr. Rosa Tran IG % 0.4 % Normal 0.0-0.5 [facility] Comment on above: Performed By: #### C VDTBH #### [facility] [address] [place] [address] Dr. Rosa Tran LYMPH # 1.6 103/ul Normal 1.2-3.8 [facility] Comment on above: Performed By: #### C VDTBH #### [facility] [address] [place] [address] Dr. Rosa Tran Lymphocytes/100 WBC (Bld) 12.2 % Critically low 20.5-60.0 [facility] Comment on above: Performed By: #### C VDTBH #### [facility] [address] [place] [address] Dr. Rosa Tran MCH (RBC) [Entitic mass] 30.3 pg Normal 25.9-34.0 [facility] Comment on above: Performed By: #### C VDTBH #### [facility] [address] [place] [address] Dr. Rosa Tran MCHC (RBC) [Mass/Vol] 34.1 g/dL Normal 29.9-35.2 [facility] Comment on above: Performed By: #### C VDTBH #### [facility] [address] [place] [address] Dr. Rosa Tran MCV (RBC) [Entitic vol] 88.9 fL Normal 80.0-94.0 [facility] Comment on above: Performed By: #### C VDTBH #### [facility] [address] [place] [address] Dr. Rosa Tran MONO # 0.6 103/ul Normal 0.3-0.8 [facility] Comment on above: Performed By: #### C VDTBH #### [facility] [address] [place] [address] Dr. Rosa Tran Monocytes/100 WBC (Bld) 4.6 % Normal 1.7-12.0 [facility] Comment on above: Performed By: #### C VDTBH #### [facility] [address] [place] [address] Dr. Rosa Tran NEUT # 11.0 103/ul Critically high 1.4-6.5 [facility] Comment on above: Performed By: #### C VDTBH #### [facility] [address] [place] [address] Dr. Rosa Tran Neutrophils/100 WBC (Bld) 81.8 % Critically high 43.0-75.0 [facility] Comment on above: Performed By: #### C VDTBH #### [facility] [address] [place] [address] Dr. Rosa Tran Platelet mean volume (Bld) [Entitic vol] 10.0 fL Normal 9.5-13.5 [facility] Comment on above: Performed By: #### C VDTBH #### [facility] [address] [place] [address] Dr. Rosa Tran PLT 226 103/ul Normal 150-450 [facility] Comment on above: Performed By: #### C VDTBH #### [facility] [address] [place] [address] Dr. Rosa Tran RBC 4.32 106/ul Critically low 4.70-6.[address] [facility] Comment on above: Performed By: #### C VDTB #### [facility] [address] [address] [address] Rosa Tran WBC 13.4 103/ul Critically high 4.0-11.0 [facility] Comment on above: Performed By: #### C VDTB #### [facility] [address] [address] ABD/PELV W CONon [...] MISAEL DENNY Date: 2022-08-11 08:55 Normal [facility] Covid-19 PCR (CVDTB)on SARS-CoV-2 (COVID-19) RNA VIKAS+probe Ql (Unsp spec) Not detected Normal NOT DETECTED [facility] Comment on above: Result Comment: When diagnostic [...] for this test is supported by the [employer] and Human Service's declaration that [...] used). Performed By: #### C VDTBH #### [facility] [address] [place] [address] Dr. Rosa Tran LACTATE/LACTIC ACIDon 2022 Lactate [Moles/Vol] 0.5 mmol/L Normal 0.4-1.9 [facility] Comment on above: Performed By: #### C VDTBH #### [facility] [address] [place] [address] Dr. Rosa Tran LIPASEon 08-11-2022 Lipase [Catalytic activity/Vol] 73.0 U/L Normal 73.0-393.0 [facility] Comment on above: Performed By: #### C VDTBH #### [facility] [address] [place] [address] Dr. Rosa Tran PROF 14(COMP METB)on 023 Albumin [Mass/Vol] 3.9 g/dL Normal 3.4-5.0 [facility] Comment on above: Performed By: #### C VDTBH #### [facility] [address] [place] [address] Dr. Rosa Tran ALP [Catalytic activity/Vol] 91 U/L Normal 46-116 [facility] Comment on above: Performed By: #### C VDTBH #### [facility] [address] [address] [address] Rosa Tran ALT [Catalytic activity/Vol] 34 U/L Normal 16-63 [facility] Comment on above: Performed By: #### C VDTBH #### [facility] [address] [address] [address] Rosa Tran Anion gap [Moles/Vol] 12.6 mmol/L Normal [facility] Comment on above: Performed By: #### C VDTBH #### [facility] [address] [address] [address] Rosa Tran AST [Catalytic activity/Vol] 20 U/L Normal 15-37 [facility] Comment on above: Performed By: #### C VDTBH #### [facility] [address] [place] [address] Dr. Rosa Tran Bilirubin [Mass/Vol] 0.3 mg/dL Normal 0.2-1.0 [facility] Comment on above: Performed By: #### C VDTBH #### [facility] [address] [place] [address] Dr. Rosa Tran Calcium [Mass/Vol] 9.0 mg/dL Normal 8.5-10.1 [facility] Comment on above: Performed By: #### C VDTBH #### [facility] [address] [place] [address] Dr. Rosa Tran Chloride [Moles/Vol] 105 mmol/L Normal 98-107 [facility] Comment on above: Performed By: #### C VDTBH #### [facility] [address] [address] [address] Rosa Tran CO2 [Moles/Vol] 26.9 mmol/L Normal 21.0-32.0 [facility] Comment on above: Performed By: #### C VDTBH #### [facility] [address] [place] [address] Dr. Rosa Tran Creatinine [Mass/Vol] 0.72 mg/dL Normal 0.70-1.30 [facility] Comment on above: Performed By: #### C VDTBH #### [facility] [address] [address] [address] Rosa Tran Globulin (S) [Mass/Vol] 2.9 g/dL Normal [facility] Comment on above: Performed By: #### C VDTBH #### [facility] [address] [address] [address] Rosa Tran Glucose [Mass/Vol] 125 mg/dL Critically high 74-106 [facility] Comment on above: Performed By: #### C VDTBH #### [facility] [address] [address] [address] Rosa Tran Protein [Mass/Vol] 6.8 g/dL Normal 6.4-8.2 [facility] Comment on above: Performed By: #### C VDTBH #### [facility] [address] [address] [address] Rosa Tran Sodium [Moles/Vol] 141 mmol/L Normal 136-145 [facility] Comment on above: Performed By: #### C VDTBH #### [facility] [address] [address] [address] Rosa Tran Urea nitrogen/Creatini ne [Mass ratio] 15.3 mg/mg Normal [facility] Comment on above: Performed By: #### C VDTBH #### [facility] [address] [address] [address] Rosa Feliciano 04-09-2021 [facility] Office Visit (GENBMI ) ----- TIM CASTELLON ([id number]) 1990 M Date Time Provider Department 04/09/21 [...] vein a (more content not included)... Normal [facility] Kaycee 04-09-2021 [facility] Telephone (GENN) ----- CHINTANJORDYTIM E ([id number]) 1990 Date Time Provider Department 04/09/21 MELANI [...] Status:Closed by MELANI BRANCH on 04/09/21 Normal [facility] Encounters Encounter Date Encounter Type Care Provider [...] Facility:[facility] Payers Date Payer Category Payer Unknown [id number] 2.16.84 [id number] 1990 Unknown [id number] 2.16.84 [id number] 1990 Unknown [id number] 2.16.84 [id number] 1990 Unknown [id number] 2.16.84 [id number] 1990 Unknown [id number] 2.16.84 [id number] 1990 Unknown [id number] 2.16.84 [id number] 1959 Unknown [id number] Progress note 04-09-2021 Note Date & Type Note Facility 04-09-2021 Note HNO ID: [id number] Author: Naun Rodrigues PA-C Service: ? Author Type: Physician Wagon Person Type: Progress Notes Filed: 05/21/2021 8:57 AM [...] 09, 2021 TIME: 2:24 PM PAGER/CONTACT #: [facility] Progress note 04-09-2021 Note Date & Type Note Facility 04-09-2021 Note HNO ID: [id number] Author: Karma Isabel MD Service: ? Author [...] 09, 2021 TIME: 2:16 PM PAGER/CONTACT #: [facility] Summary Purpose Family History No Family History Records FoundNo Family History Records Found Advance Directives No Advanced Directives Records FoundNo Advanced Directives Records Found Additional Source Comments (unrecognized sect ion and content) No Status Records FoundNo Status Records Found INFORMATION SOURCE (unrecogn ized section and content) DATE CREATED AUTHOR 08/07/2021 [facility] DATE CREATED AUTHOR AUTHOR'S ORGANIZ ATION 10/21/2022 [...] BE BASED ON THE PRIMARY CLINICAL RECORDS. [employer] [facility]. provides no warranty or guarantee of the accuracy or completeness of information in this document.
[2024-03-26 08:30] LABS: Lactate/Lactic Acid 2.2 mmol/L (0.4-2.0)
[2024-03-26 09:03] LABS: Lactate/Lactic Acid 0.7 mmol/L (0.4-2.0)
[2024-03-26] MEDS: HALOPERIDOL LACTATE 5 MG/ML VIAL IV ×3 (10:28→21:10)
[2024-03-26] MEDS: PANTOPRAZOLE SODIUM 40 MG VIAL IV (10:28)
[2024-03-26] MEDS: 0.9 % SODIUM CHLORIDE 1,000 ML 125 ML IV ×2 (10:28→17:18)
[2024-03-26] MEDS: HYOSCYAMINE SULFATE 0.125 MG TAB.SUBL 0.25 MG SL ×3 (12:06→21:09)
[2024-03-26] MEDS: AMITRIPTYLINE HCL 50 MG TABLET PO (21:09)
[2024-03-27] VITALS (8 sets, daily range): BP systolic 124–165; BP diastolic 74–95; PULSE 57–90; TEMP 36.6–37.6; O2SAT 95–100
[2024-03-27] MEDS: 0.9 % SODIUM CHLORIDE 1,000 ML 125 ML IV ×3 (01:12→19:10)
[2024-03-27] MEDS: METOCLOPRAMIDE HCL 10 MG/2 ML VIAL IVP ×4 (05:00→22:06)
[2024-03-27] MEDS: HYOSCYAMINE SULFATE 0.125 MG TAB.SUBL 0.25 MG SL ×3 (05:00→21:42)
[2024-03-27] MEDS: HALOPERIDOL LACTATE 5 MG/ML VIAL IV ×4 (05:01→21:42)
[2024-03-27 05:51] LABS: Basophils Percent Auto 0.2 % (0.2-2.0); Hematocrit 37.7 % (42.0-54.0); Hemoglobin 12.6 g/dL (14.0-18.0); Immature Granulocytes Abs Auto 0.04 10^3/uL (0.00-0.03); Immature Granulocytes Pct Auto 0.4 % (0.0-0.5); Lymphocytes Absolute Auto 1.7 10^3/uL (1.2-3.8); Lymphocytes Percent Auto 17.5 % (20.5-60.0); Mean Corpuscular HGB Conc 33.4 g/dL (29.9-35.2); Mean Corpuscular Hemoglobin 30.7 pg (25.9-34.0); Mean Platelet Volume 9.8 fL (9.5-13.5); Monocytes Absolute Auto 0.7 10^3/uL (0.3-0.8); Monocytes Percent Auto 6.8 % (1.7-12.0); Neutrophils Absolute Auto 7.4 10^3/uL (1.4-6.5); Neutrophils Percent Auto 75.1 % (43.0-75.0); Platelet Count 209 10^3/uL (150-450); Red Cell Distribution Width 13.5 % (11.0-15.0); White Blood Count 9.8 10^3/uL (4.0-11.0)
[2024-03-27 06:09] LABS: Anion Gap 12.4; Calcium 7.8 mg/dL (8.5-10.1); Carbon Dioxide 22.2 mmol/L (21.0-32.0); Chloride 106 mmol/L (98-107); Estimated GFR (African America >60 (>=60); Estimated GFR (Non-African Ame >60 (>=60); Glucose 159 mg/dL (74-106); Potassium 3.6 mmol/L (3.5-5.1); Sodium 137 mmol/L (136-145)
--- NOTE | 2024-03-27 07:29 | P.DS_ITS ---
DS: Providers Provider Date of admission: 03/26/24 07:41 Primary care physician: TITUS HILARIO Consults: 03/26/24 07:14 Consult to Pharmacy Routine Consulting Provider: Reason for consultation: Please Anthony me when Med Rec is Updated Has provider been notified: No DS: Diagnosis Discharge Diagnosis (1) Cyclic vomiting syndrome: (2) Vomiting: Plan Admission findings: Severe hyperemesis with significant dehydration resulting in acute kidney injury-stage 2 (STEFF/KDIGO) (has a baseline creatinine of last year of 0.6 at his last April, creatinine on admission 1.33 which is 220% above baseline), lactic acidosis, severe abdominal pain and recurrent emesis unable to control in the emergency room. Dehydration with acute kidney injury as outlined above and lactic acidosis- proved at the time of discharge Hyperglycemia-improving at the time of discharge History constipation -stable at discharge History of insomnia-continue with amitriptyline Admission status: Patient with a history of cyclic vomiting syndrome, reoccurrence, drug screen is pending, acute abdominal series is pending, lactate is positive, this is likely secondary just to the dehydration medically necessary treatment likely to span 1 midnight. Observation status DS: Summary Hospital Course Hospital Course: Patient admitted after 2 to 3-day course of increasing nausea vomiting and abdominal pain consistent with his previous diagnosis of cyclic vomiting syndro me. Acute abdominal series showed no obstruction. He was treated with IV fluids, Reglan, Zofran, Haldol IV. Patient is improved this morning. He did not eat much yesterday. The plan is to have him eat breakfast and lunch, if tolerates that without significant increase in his pain and no emesis, he can be discharged to home in improving condition. Medications see list. Follow-up with his PCP within the week. Status at Discharge Overall status at discharge: patient is not back to baseline Time Spent with Patient Time attestation: Total time spent providing and/or coordinating discharge services: Time spent: greater than 30 minutes Exam Constitutional Vital Signs, click to edit/add: Last Vital Signs Temp 98.7 F 03/27/24 04:00 Pulse 57 L 03/27/24 04:00 Resp 18 03/27/24 07:24 BP 148/90 H 03/27/24 04:00 Pulse Ox 96 03/27/24 04:27 O2 Del Method Room Air 03/27/24 04:27 Documenting provider has reviewed patient's vital signs: yes Common normals: no apparent distress Respiratory Common normals: normal respiratory effort Cardio Common normals: regular rate and regular rhythm GI Common normals: Normal to inspection, nondistended, normoactive bowel sounds present and soft to palpation; tender (Minimal tenderness but much improved) DS: Data Data Completed and Pending Labs on day of discharge: Labs from last 24 hours 03/27/24 03/26/24 03/26/24 05:30 08:41 04:23 WBC 9.8 RBC 4.10 L Hgb 12.6 L Hct 37.7 L MCV 92.0 MCH 30.7 MCHC 33.4 RDW 13.5 Plt Count 209 MPV 9.8 Neut % (Auto) 75.1 H Lymph % (Auto) 17.5 L [place] % (Auto) 6.8 Eos % (Auto) 0.0 L Baso % (Auto) 0.2 Neut # (Auto) 7.4 H Lymph # (Auto) 1.7 [place] # (Auto) 0.7 Eos # (Auto) 0.0 Baso # (Auto) 0.0 Abs Immat Gran (auto) 0.04 H Imm/Tot Granulo (auto) 0.4 Sodium 137 Potassium 3.6 Chloride 106 Carbon Dioxide 22.2 Anion Gap 12.4 BUN 15.0 Creatinine 0.75 Est GFR ( Amer) >60 Est GFR (Non-Af Amer) >60 BUN/Creatinine Ratio 20.0 Glucose 159 H Lactate 0.7 2.2 H* Calcium 7.8 L Discharge Plan Discharge Disposition: Home, Self-Care Condition: Fair Discharge Medications: New ondansetron 4 mg tablet,disintegrating 4 mg PO Q6H PRN (Reason: nausea and vomiting) Qty: 30 7RF Continued amitriptyline 50 mg tablet 50 mg PO BEDTIME Print Language: Croatian Forms: Portal Instructions
[2024-03-27] MEDS: PANTOPRAZOLE SODIUM 40 MG VIAL IV (09:17)
[2024-03-27] MEDS: LACTULOSE 10 GM/15 ML (237ML) SOLUTION 30 GM PO ×2 (09:18→21:42)
[2024-03-27] MEDS: AMITRIPTYLINE HCL 50 MG TABLET PO (21:41)
[2024-03-28] MEDS: 0.9 % SODIUM CHLORIDE 1,000 ML 125 ML IV (02:43)
[2024-03-28 04:25] VITALS: O2SAT 97
[2024-03-28 04:59] VITALS: BP 154/88; PULSE 74; TEMP 36.7; O2SAT 96
[2024-03-28] MEDS: HYOSCYAMINE SULFATE 0.125 MG TAB.SUBL 0.25 MG SL (05:00)
[2024-03-28] MEDS: METOCLOPRAMIDE HCL 10 MG/2 ML VIAL IVP (05:00)
[2024-03-28] MEDS: HALOPERIDOL LACTATE 5 MG/ML VIAL IV (05:01)
[2024-03-28 05:22] LABS: Basophils Percent Auto 0.4 % (0.2-2.0); Hematocrit 36.7 % (42.0-54.0); Hemoglobin 12.2 g/dL (14.0-18.0); Immature Granulocytes Abs Auto 0.04 10^3/uL (0.00-0.03); Immature Granulocytes Pct Auto 0.4 % (0.0-0.5); Lymphocytes Absolute Auto 1.7 10^3/uL (1.2-3.8); Lymphocytes Percent Auto 16.5 % (20.5-60.0); Mean Corpuscular HGB Conc 33.2 g/dL (29.9-35.2); Mean Corpuscular Volume 90.2 fL (80.0-94.0); Mean Platelet Volume 10.2 fL (9.5-13.5); Monocytes Absolute Auto 0.8 10^3/uL (0.3-0.8); Monocytes Percent Auto 7.6 % (1.7-12.0); Neutrophils Absolute Auto 7.8 10^3/uL (1.4-6.5); Neutrophils Percent Auto 75.1 % (43.0-75.0); Platelet Count 183 10^3/uL (150-450); Red Blood Count 4.07 10^6/uL (4.70-6.10); Red Cell Distribution Width 13.2 % (11.0-15.0); White Blood Count 10.3 10^3/uL (4.0-11.0)
[2024-03-28 05:43] LABS: Anion Gap 9.5; BUN Creatinine Ratio 11.7; Carbon Dioxide 25.9 mmol/L (21.0-32.0); Chloride 104 mmol/L (98-107); Estimated GFR (African America >60 (>=60); Estimated GFR (Non-African Ame >60 (>=60); Glucose 114 mg/dL (74-106); Potassium 3.4 mmol/L (3.5-5.1); Sodium 136 mmol/L (136-145)
[2024-03-28 07:20] VITALS: BP 141/86; PULSE 62; TEMP 36.8; O2SAT 95
--- NOTE | 2024-03-28 07:36 | CT_ITS ---
[address] [address] Patient Name: ROSALINE WOODSON MRN: [id number] date: 1990 Sex: M Assigned Patient Location: MS Current Patient Location: Accession/Order Number: [id number] Exam Date: 03/28/2024 08:43 Report Date: 03/28/2024 09:30 At the request of: ANKUSH CARROLL Procedure: CT abdomen pelvis w con EXAM: CT abdomen pelvis w con HISTORY: SMA syndrome. COMPARISON: CT abdomen/pelvis 11/24/2023. TECHNIQUE: Multiple axial CT images of the abdomen and pelvis were performed with IV contrast. 2D coronal and sagittal reformations were submitted for review. Dose reduction techniques were achieved by using automated exposure control and/or adjustment of mA and/or kV according to patient size and/or use of iterative reconstruction technique. FINDINGS: LUNGS: Bibasilar streak-like atelectasis is seen, left greater than right. No pleural effusion. ABDOMINAL AORTA: No aortic aneurysm identified. The angle at the superior mesenteric artery takeoff to the course of the aorta measures 65 degrees on today's study. 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 Poststenotic dilatation measures 10 mm. LYMPH NODES: No retroperitoneal, mesenteric or pelvic lymphadenopathy. LIVER: Liver contour appears smooth. No focal liver parenchymal mass identified. BILIARY TREE AND GALLBLADDER: No intrahepatic or extrahepatic bile duct dilatation. Gallbladder is fluid distended without calcified gallstones. PANCREAS: Normal in size without masses or ductal dilatation. No peripancreatic inflammatory changes. SPLEEN: Normal in size without focal lesions. ADRENAL GLANDS: Normal bilaterally, without nodules. KIDNEYS/URINARY BLADDER: Kidneys enhance in a symmetric fashion. No parenchymal lesions identified. No KUB stones or hydronephrosis identified. The urinary bladder appears unremarkable. GASTROINTESTINAL TRACT: The stomach and duodenum appear unremarkable. No bowel obstruction is seen. Appendix is not seen with certainty. No pericecal inflammation identified. PERITONEAL CAVITY AND SURFACES: No free fluid. No free intraperitoneal air. REPRODUCTIVE ORGANS: Prostate gland appears normal. ABDOMINAL WALL: No abdominal hernias are seen. OSSEOUS STRUCTURES: No aggressive appearing osseous lesions. No compression fracture is identified. Minor bilateral hip joint osteoarthritis. Bilateral synovial herniation pits along the anterosuperior femoral head neck junctions. CT/CT abdomen pelvis w con IMPRESSION: 1. SMA-aortic angle is normal on today's study. 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 2. Bilateral basilar atelectasis. Electronically authenticated by: KARMA ZAMORA Date: 03/28/2024 09:30
--- NOTE | 2024-03-28 07:40 | P.DS_ITS ---
DS: Providers Provider Date of admission: 03/27/24 14:46 Primary care physician: TITUS HILARIO Consults: 03/26/24 07:14 Consult to Pharmacy Routine Consulting Provider: Reason for consultation: Please Ponce me when Med Rec is Updated Has provider been notified: No DS: Diagnosis Discharge Diagnosis (1) Cyclic vomiting syndrome: (2) Vomiting: (3) Superior mesenteric artery syndrome: Plan Admission findings: Severe hyperemesis with significant dehydration resulting in acute kidney injury-stage 2 (STEFF/KDIGO) (has a baseline creatinine of last year of 0.6 at his last April, creatinine on admission 1.33 which is 220% above baseline), lactic acidosis, severe abdominal pain and recurrent emesis unable to control in the emergency room. Dehydration with acute kidney injury as outlined above and lactic acidosis- improved at the time of discharge Hyperglycemia-improving at the time of discharge Hypokalemia - supplemented History constipation -stable at discharge History of insomnia-continue with amitriptyline Admission status: Patient with a history of cyclic vomiting syndrome, reoccurrence, drug screen is pending, acute abdominal series is pending, lactate is positive, this is likely secondary just to the dehydration medically necessary treatment likely to span 1 midnight. Observation statu DS: Summary Hospital Course Hospital Course: Patient admitted after 2 to 3-day course of increasing nausea vomiting and abdominal pain consistent with his previous diagnosis of cyclic vomiting syndrome complicated by his superior mesenteric artery syndrome. Acute abdominal series showed no obstruction. He was treated with IV fluids, Reglan, Zofran, Haldol IV. Patient is improved this morning. He did not eat much yesterday. Pain was worse after eating yesterday so he did stay an additional day. Obtaining CT scan this morning to ensure no other findings, if CT scan is negative and he can eat without increase in pain, will discharge to home later today. Medications see list. Follow-up with PCP within the next week Time Spent with Patient Time attestation: Total time spent providing and/or coordinating discharge services: Exam Constitutional Vital Signs, click to edit/add: Last Vital Signs Temp 98.3 F 03/28/24 07:20 Pulse 62 03/28/24 07:20 Resp 16 03/28/24 07:20 BP 141/86 03/28/24 07:20 Pulse Ox 95 03/28/24 07:20 O2 Del Method Room Air 03/28/24 07:20 Documenting provider has reviewed patient's vital signs: yes Common normals: no apparent distress (Resting in bed comfortably, much improved from admission) Respiratory Common normals: normal respiratory effort Cardio Common normals: regular rate and regular rhythm GI Common normals: Normal to inspection, nondistended, normoactive bowel sounds present and soft to palpation; tender (Still with persisting tenderness but still much improved from admission) DS: Data Data Completed and Pending Labs on day of discharge: Labs from last 24 hours 03/28/24 04:50 WBC 10.3 RBC 4.07 L Hgb 12.2 L Hct 36.7 L MCV 90.2 MCH 30.0 MCHC 33.2 RDW 13.2 Plt Count 183 MPV 10.2 Neut % (Auto) 75.1 H Lymph % (Auto) 16.5 L [place] % (Auto) 7.6 Eos % (Auto) 0.0 L Baso % (Auto) 0.4 Neut # (Auto) 7.8 H Lymph # (Auto) 1.7 [place] # (Auto) 0.8 Eos # (Auto) 0.0 Baso # (Auto) 0.0 Abs Immat Gran (auto) 0.04 H Imm/Tot Granulo (auto) 0.4 Sodium 136 Potassium 3.4 L Chloride 104 Carbon Dioxide 25.9 Anion Gap 9.5 BUN 7.0 Creatinine 0.60 L Est GFR ( Amer) >60 Est GFR (Non-Af Amer) >60 BUN/Creatinine Ratio 11.7 Glucose 114 H Calcium 8.0 L Discharge Plan Discharge Disposition: Home, Self-Care Condition: Fair Discharge Medications: New ondansetron 4 mg tablet,disintegrating 4 mg PO Q6H PRN (Reason: nausea and vomiting) Qty: 30 7RF Continued amitriptyline 50 mg tablet 50 mg PO BEDTIME Activity: increase activity as tolerated Print Language: Faroese Patient Instructions: Ondansetron (By mouth), Acute Abdominal Pain (DC) Forms: Portal Instructions Follow Up Appointments: Apr.02 @ 10am with Titus Hilario NP [phone] Discharge Date/Time: 03/28/24 09:27
[2024-03-28] MEDS: PANTOPRAZOLE SODIUM 40 MG VIAL IV (08:13)
[2024-03-28] MEDS: POTASSIUM CHLORIDE 10 MEQ ER TABLET 20 MEQ PO (09:20)
--- NOTE | 2024-04-01 15:26 | CM.DCFOLLOWU ---
Person spoke with: Tim How are you feeling? Better How is your pain? No pain Did you understand your discharge instructions? Yes Do you have any questions about your discharge instructions? No Were you given any prescriptions at discharge? Yes Were you able to get your prescriptions filled? Did not pick them up Do you understand how to take your medications as ordered? Yes Do you have any questions about your follow up appointment and do you plan to keep your follow up appointment? I will keep appt Is there anything else that you would like to discuss? No Questions/Comments/Concerns/Other:
== END 2024-03-28 09:27 | disposition home or self-care (01) | DRG 394 ==
LOC: ER 07:43 → MS 07:45
PROVIDERS: Admitting Provider Family Medicine; Emergency Provider Emergency Medicine; PCP Nurse Practitioner Family; Visit Provider Family Medicine
DX: R11.15 Cyclical vomiting syndrome unrelated to migraine (principal); E87.20 Acidosis, unspecified; N17.9 Acute kidney failure, unspecified; K55.1 Chronic vascular disorders of intestine; E86.0 Dehydration; R10.9 Unspecified abdominal pain; R73.9 Hyperglycemia, unspecified; F12.90 Cannabis use, unspecified, uncomplicated; Z87.898 Personal history of other specified conditions; F17.200 Nicotine dependence, unspecified, uncomplicated; Z79.899 Other long term (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 therapy
CPT/HCPCS: 36415; 74022; 74177; 80048; 80076; 80307; 81001; 82150; 83605; 83690; 85025; 94761; 99285; J1630; J1885; J2270; J2405; J2765; Q9967

== ENCOUNTER 2024-08-27 08:43 | Emergency (ER) | payer SELFPAY ==
[2024-08-27 08:48] VITALS: BP 133/86; PULSE 89; TEMP 36.7; O2SAT 95; BMI 23.0
--- OUTSIDE RECORDS SUMMARY | 2024-08-27 09:04 | XMS_ITS | CCD ---
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 [facility] Comment on above: Performed By: #### C VDTB #### [facility] [address] [address] [address] Rosa Tran Summary FINAL Normal [facility] Comment on above: Result Comment: TOXASSURE COMP [...] test is not intended to distinguish between rqszj-3-kkrzqiktuwyyklodvhhb, the predominant form of THC in most herbal or marijuana-based products, and lsabb-4-cqklusimzateysppnkic. Amitriptyline PRESENT Nortriptyline PRESENT Nortriptyline may be administered as a prescription drug; it is also an expected metabolite of amitriptyline. Acetaminophen PRESENT Diphenhydramine PRESENT Test Result Flag Units Ref Range Creatinine 183 mg/dL >=20 Declared Medications: Medication list was not provided. For clinical consultation, please call . Performed By: #### C VDTBH #### [facility] [address] [place] [address] Dr. Rosa Tran CBC AUTO DIFFon 10-14-2022 BASO # 0.0 103/ul Normal 0.0-0.1 [facility] Comment on above: Performed By: #### C VDTBH #### [facility] [address] [place] [address] Dr. Rosa Tran Basophils/100 WBC (Bld) 0.5 % Normal 0.2-2.0 [facility] Comment on above: Performed By: #### C VDTBH #### [facility] [address] [place] [address] Dr. Rosa Tran EO # 0.0 103/ul Normal 0.0-0.7 [facility] Comment on above: Performed By: #### C VDTBH #### [facility] [address] [place] [address] Dr. Rosa Tran Eosinophils/100 WBC (Bld) 0.2 % Critically low 0.9-7.0 [facility] Comment on above: Performed By: #### C VDTBH #### [facility] [address] [place] [address] Dr. Rosa Tran Erythrocyte distribution width (RBC) [Ratio] 12.5 % Normal 11.0-15.0 [facility] Comment on above: Performed By: #### C VDTBH #### [facility] [address] [place] [address] Dr. Rosa Tran Hematocrit (Bld) [Volume fraction] 39.7 % Critically low 42.0-54.0 [facility] Comment on above: Performed By: #### C VDTBH #### [facility] [address] [place] [address] Dr. Rosa Tran Hemoglobin (Bld) [Mass/Vol] 13.9 g/dL Critically low 14.0-18.0 [facility] Comment on above: Performed By: #### C VDTBH #### [facility] [address] [place] [address] Dr. Rosa Tran IG # 0.02 10e3/ul Normal 0.00-0.03 [facility] Comment on above: Performed By: #### C VDTBH #### [facility] [address] [place] [address] Dr. Rosa Tran IG % 0.2 % Normal 0.0-0.5 [facility] Comment on above: Performed By: #### C VDTBH #### [facility] [address] [place] [address] Dr. Rosa Tran LYMPH # 1.7 103/ul Normal 1.2-3.8 [facility] Comment on above: Performed By: #### C VDTBH #### [facility] [address] [place] [address] Dr. Rosa Tran Lymphocytes/100 WBC (Bld) 19.2 % Critically low 20.5-60.0 [facility] Comment on above: Performed By: #### C VDTBH #### [facility] [address] [place] [address] Dr. Rosa Tran MANUAL DIFF REQ NO Normal [facility] Comment on above: Performed By: #### C VDTBH #### [facility] [address] [place] [address] Dr. Rosa Tran MCH (RBC) [Entitic mass] 30.5 pg Normal 25.9-34.0 [facility] Comment on above: Performed By: #### C VDTBH #### [facility] [address] [place] [address] Dr. Rosa Tran MCHC (RBC) [Mass/Vol] 35.0 g/dL Normal 29.9-35.2 [facility] Comment on above: Performed By: #### C VDTBH #### [facility] [address] [place] [address] Dr. Rosa Tran MCV (RBC) [Entitic vol] 87.1 fL Normal 80.0-94.0 [facility] Comment on above: Performed By: #### C VDTBH #### [facility] [address] [place] [address] Dr. Rosa Tran MONO # 0.6 103/ul Normal 0.3-0.8 The [facility] Comment on above: Performed By: #### C VDTBH #### [facility] [address] [place] [address] Dr. Rosa Tran Monocytes/100 WBC (Bld) 7.2 % Normal 1.7-12.0 [facility] Comment on above: Performed By: #### C VDTBH #### [facility] [address] [place] [address] Dr. Rosa Tran NEUT # 6.4 103/ul Normal 1.4-6.5 [facility] Comment on above: Performed By: #### C VDTBH #### [facility] [address] [place] [address] Dr. Rosa Tran Neutrophils/100 WBC (Bld) 72.7 % Normal 43.0-75.0 [facility] Comment on above: Performed By: #### C VDTBH #### [facility] [address] [place] [address] Dr. Rosa Tran Platelet mean volume (Bld) [Entitic vol] 9.6 fL Normal 9.5-13.5 [facility] Comment on above: Performed By: #### C VDTBH #### [facility] [address] [address] [address] Rosa Tran PLT 255 103/ul Normal 150-450 [facility] Comment on above: Performed By: #### C VDTBH #### [facility] [address] [place] [address] Dr. Rosa Tran RBC 4.56 106/ul Critically low 4.70-6.10 [facility] Comment on above: Performed By: #### C VDTBH #### [facility] [address] [place] [address] Dr. Rosa Tran WBC 8.8 103/ul Normal 4.0-11.0 [facility] Comment on above: Performed By: #### C VDTBH #### [facility] [address] [place] [address] Dr. Rosa Tran PROF CHEM 8 (BAS METB)on Anion gap [Moles/Vol] 12.0 mmol/L Normal [facility] Comment on above: Performed By: #### C VDTBH #### [facility] [address] [place] [address] Dr. Rosa Tran Calcium [Mass/Vol] 9.1 mg/dL Normal 8.5-10.1 [facility] Comment on above: Performed By: #### C VDTBH #### [facility] [address] [place] [address] Dr. Rosa Tran Chloride [Moles/Vol] 104 mmol/L Normal 98-107 [facility] Comment on above: Performed By: #### C VDTBH #### [facility] [address] [place] [address] Dr. Rosa Tran CO2 [Moles/Vol] 27.1 mmol/L Normal 21.0-32.0 [facility] Comment on above: Performed By: #### C VDTBH #### [facility] [address] [place] [address] Dr. Rosa Tran Creatinine [Mass/Vol] 0.71 mg/dL Normal 0.70-1.30 [facility] Comment on above: Performed By: #### C VDTBH #### [facility] [address] [place] [address] Dr. Rosa Tran EGFR-AF BAHRAINI >60 Normal >=60 [facility] Comment on above: Performed By: #### C VDTBH #### [facility] [address] [place] [address] Dr. Rosa Tran EGFR-NON AF BAHRAINI >60 Normal >=60 [facility] Comment on above: Performed By: #### C VDTBH #### [facility] [address] [place] [address] Dr. Rosa Tran Glucose [Mass/Vol] 116 mg/dL Critically high 74-106 [facility] Comment on above: Performed By: #### C VDTBH #### [facility] [address] [place] [address] Dr. Rosa Tran Potassium [Moles/Vol] 3.1 mmol/L Critically low 3.5-5.1 [facility] Comment on above: Performed By: #### C VDTBH #### [facility] [address] [place] [address] Dr. Rosa Tran Sodium [Moles/Vol] 140 mmol/L Normal 136-145 [facility] Comment on above: Performed By: #### C VDTBH #### [facility] [address] [place] [address] Dr. Rosa Tran Urea nitrogen [Mass/Vol] 10.0 mg/dL Normal 7.0-18.0 [facility] Comment on above: Performed By: #### C VDTBH #### [facility] [address] [place] [address] Dr. Rosa Tran Urea nitrogen/Creatini ne [Mass ratio] 14.1 mg/mg Normal [facility] Comment on above: Performed By: #### C VDTBH #### [facility] [address] [place] [address] Dr. Rosa Tran CBC AUTO DIFFon 10-13-2022 BASO # 0.1 103/ul Normal 0.0-0.1 [facility] Comment on above: Performed By: #### C BC ####[facility] [address] [address]Dr. Rosa Tran Basophils/100 WBC (Bld) 0.7 % Normal 0.2-2.0 [facility] Comment on above: Performed By: #### C BC ####[facility] [address] [place], [place] [address]Dr. Rosa Tran EO # 0.0 103/ul Normal 0.0-0.7 The [facility] Comment on above: Performed By: #### C BC ####[facility] [address] [place], [place] [address]Dr. Rosa Tran Eosinophils/100 WBC (Bld) 0.1 % Critically low 0.9-7.0 [facility] Comment on above: Performed By: #### C BC ####[facility] [address] [place], [place] [address]Dr. Rosa Tran Erythrocyte distribution width (RBC) [Ratio] 12.8 % Normal 11.0-15.0 [facility] Comment on above: Performed By: #### C BC ####[facility] [address] [place], [place] [address]Dr. Rosa Tran Hematocrit (Bld) [Volume fraction] 37.8 % Critically low 42.0-54.0 [facility] Comment on above: Performed By: #### C BC ####[facility] [address] [place], [place] [address]Dr. Rosa Tran Hemoglobin (Bld) [Mass/Vol] 12.7 g/dL Critically low 14.0-18.0 The [facility] Comment on above: Performed By: #### C BC ####[facility] [address] [place], [place] [address]Dr. Rosa Tran IG # 0.04 10e3/ul Critically high 0.00-0.03 [facility] Comment on above: Performed By: #### C BC ####[facility] [address] [place], [place] [address]DrArgelia Tran IG % 0.5 % Normal 0.0-0.5 [facility] Comment on above: Performed By: #### C BC ####[facility] [address] [address]DrArgelia Tran LYMPH # 1.8 103/ul Normal 1.2-3.8 The [facility] Comment on above: Performed By: #### C BC ####[facility] [address] [address]DrArgelia Tran Lymphocytes/100 WBC (Bld) 23.3 % Normal 20.5-60.0 The [facility] Comment on above: Performed By: #### C BC ####[facility] [address] [place], [place] [address]DrArgelia Tran MANUAL DIFF REQ NO Normal [facility] Comment on above: Performed By: #### C BC ####[facility] [address] [place], [place] [address]DrArgelia Tran MCH (RBC) [Entitic mass] 30.4 pg Normal 25.9-34.0 [facility] Comment on above: Performed By: #### C BC ####[facility] [address] [place], [place] [address]DrArgelia Rosa Marc MCHC (RBC) [Mass/Vol] 33.6 g/dL Normal 29.9-35.2 The [facility] Comment on above: Performed By: #### C BC ####[facility] [address] [place], [place] [address]DrArgelia Tran MCV (RBC) [Entitic vol] 90.4 fL Normal 80.0-94.0 The [facility] Comment on above: Performed By: #### C BC ####[facility] [address] [place], [place] [address]DrArgelia Tran MONO # 0.5 103/ul Normal 0.3-0.8 [facility] Comment on above: Performed By: #### C BC ####[facility] [address] [place], [place] [address]DrArgelia Tran Monocytes/100 WBC (Bld) 6.7 % Normal 1.7-12.0 [facility] Comment on above: Performed By: #### C BC ####[facility] [address] [address]DrArgelia Carlsonyoselin Tran NEUT # 5.3 103/ul Normal 1.4-6.5 The [facility] Comment on above: Performed By: #### C BC ####[facility] [address] [address]DrArgelia Tran Neutrophils/100 WBC (Bld) 68.7 % Normal 43.0-75.0 The [facility] Comment on above: Performed By: #### C BC ####[facility] [address] [place], [place] [address]DrArgelia Tran Platelet mean volume (Bld) [Entitic vol] 9.4 fL Critically low 9.5-13.5 The [facility] Comment on above: Performed By: #### C BC ####[facility] [address] [place], [place] [address]DrArgelia Tran PLT 221 103/ul Normal 150-450 The [facility] Comment on above: Performed By: #### C BC ####[facility] [address] [place], [place] [address]DrArgelia Tran RBC 4.18 106/ul Critically low 4.70-6.10 [facility] Comment on above: Performed By: #### C BC ####[facility] [address] [address]DrArgelia Tran WBC 7.6 103/ul Normal 4.0-11.0 The [facility] Comment on above: Performed By: #### C BC ####[facility] [address] [place], [place] [address]DrArgelia Tran PROF CHEM 8 (BAS METB)on Anion gap [Moles/Vol] 9.4 mmol/L Normal [facility] Comment on above: Performed By: #### B MP ####[facility] [address] [place], [place] [address]DrArgelia Tran Calcium [Mass/Vol] 8.6 mg/dL Normal 8.5-10.1 The [facility] Comment on above: Performed By: #### B MP ####[facility] [address] [address]Dr. Rosa Tran Chloride [Moles/Vol] 105 mmol/L Normal 98-107 The [facility] Comment on above: Performed By: #### B MP ####[facility] [address] [address]Dr. Rosa Tran CO2 [Moles/Vol] 26.9 mmol/L Normal 21.0-32.0 [facility] Comment on above: Performed By: #### B MP ####[facility] [address] [place], [place] [address]Dr. Rosa Tran Creatinine [Mass/Vol] 0.61 mg/dL Critically low 0.70-1.30 The [facility] Comment on above: Performed By: #### B MP ####[facility] [address] [place], [place] [address]Dr. Rosa Tran EGFR-AF BAHRAINI >60 Normal >=60 [facility] Comment on above: Performed By: #### B MP ####[facility] [address] [place], [place] [address]Dr. Rosa Marc EGFR-NON AF BAHRAINI >60 Normal >=60 The [facility] Comment on above: Performed By: #### B MP ####[facility] [address] [address]Dr. Rosa Marc Glucose [Mass/Vol] 124 mg/dL Critically high 74-106 The [facility] Comment on above: Performed By: #### B MP ####[facility] [address] [place], [place] [address]Dr. Robynyoselin Marc Potassium [Moles/Vol] 3.3 mmol/L Critically low 3.5-5.1 The [facility] Comment on above: Performed By: #### B MP ####[facility] [address] [place], [place] [address]Dr. Rosa Tran Sodium [Moles/Vol] 138 mmol/L Normal 136-145 The [facility] Comment on above: Performed By: #### B MP ####[facility] [address] [id number][address] Rosa Tran Urea nitrogen [Mass/Vol] 5.0 mg/dL Critically low 7.0-18.0 [facility] Comment on above: Performed By: #### B MP ####[facility] [address] [id number]. Rosa Tran Urea nitrogen/Creatini ne [Mass ratio] 8.2 mg/mg Normal [facility] Comment on above: Performed By: #### B MP ####[facility] [address] [id number]. Rosa Tran XR ABD FLAT UP_[place] [...] [facility] [address] [address] [address] Rosa Tran Basophils/100 WBC (Bld) 0.4 % Normal 0.2-2.0 The [facility] Comment on above: Performed By: #### C BC #### [facility] [address] [address] [address] Rosa Tran EO # 0.0 103/ul Normal 0.0-0.7 The [facility] Comment on above: Performed By: #### C BC #### [facility] [address] [place] [address] Dr. Rosa Tran Eosinophils/100 WBC (Bld) 0.0 % Critically low 0.9-7.0 The [facility] Comment on above: Performed By: #### C BC #### [facility] [address] [place] [address] Dr. Rosa Tran Erythrocyte distribution width (RBC) [Ratio] 13.2 % Normal 11.0-15.0 The [facility] Comment on above: Performed By: #### C BC #### [facility] [address] [place] [address] Dr. Rosa Tran Hematocrit (Bld) [Volume fraction] 34.9 % Critically low 42.0-54.0 The [facility] Comment on above: Performed By: #### C BC #### [facility] [address] [place] [address] Dr. Rosa Tran Hemoglobin (Bld) [Mass/Vol] 11.9 g/dL Critically low 14.0-18.0 [facility] Comment on above: Performed By: #### C BC #### [facility] [address] [place] [address] Dr. Rosa Tran IG # 0.02 10e3/ul Normal 0.00-0.03 The [facility] Comment on above: Performed By: #### C BC #### [facility] [address] [place] [address] Dr. Rosa Tran IG % 0.2 % Normal 0.0-0.5 The [facility] Comment on above: Performed By: #### C BC #### [facility] [address] [place] [address] Dr. Rosa Tran LYMPH # 1.3 103/ul Normal 1.2-3.8 The [facility] Comment on above: Performed By: #### C BC #### [facility] [address] [place] [address] Dr. Rosa Tran Lymphocytes/100 WBC (Bld) 15.5 % Critically low 20.5-60.0 The [facility] Comment on above: Performed By: #### C BC #### [facility] [address] [place] [address] Dr. Rosa Tran MANUAL DIFF REQ NO Normal [facility] Comment on above: Performed By: #### C BC #### [facility] [address] [place] [address] Dr. Rosa Tran MCH (RBC) [Entitic mass] 31.0 pg Normal 25.9-34.0 [facility] Comment on above: Performed By: #### C BC #### [facility] [address] [place] [address] Dr. Rosa Tran MCHC (RBC) [Mass/Vol] 34.1 g/dL Normal 29.9-35.2 [facility] Comment on above: Performed By: #### C BC #### [facility] [address] [place] [address] Dr. Rosa Tran MCV (RBC) [Entitic vol] 90.9 fL Normal 80.0-94.0 [facility] Comment on above: Performed By: #### C BC #### [facility] [address] [place] [address] Dr. Rosa Tran MONO # 0.4 103/ul Normal 0.3-0.8 The [facility] Comment on above: Performed By: #### C BC #### [facility] Laboratory [address] [place] [address] Dr. Rosa Tran Monocytes/100 WBC (Bld) 4.9 % Normal 1.7-12.0 The [facility] Comment on above: Performed By: #### C BC #### [facility] Laboratory [address] [place] [address] Dr. Rosa Tran NEUT # 6.6 103/ul Critically high 1.4-6.5 The [facility] Comment on above: Performed By: #### C BC #### [facility] Laboratory [address] [place] [address] Dr. Rosa Tran Neutrophils/100 WBC (Bld) 79.0 % Critically high 43.0-75.0 The [facility] Comment on above: Performed By: #### C BC #### [facility] Laboratory [address] [place] [address] Dr. Rosa Tran Platelet mean volume (Bld) [Entitic vol] 9.9 fL Normal 9.5-13.5 The [facility] Comment on above: Performed By: #### C BC #### [facility] Laboratory [address] [address] [address] Rosa Tran PLT 196 103/ul Normal 150-450 The [facility] Comment on above: Performed By: #### C BC #### [facility] Laboratory [address] [address] [address] Rosa Tran RBC 3.84 106/ul Critically low 4.70-6.10 The [facility] Comment on above: Performed By: #### C BC #### [facility] Laboratory [address] [address] [address] Rosa Tran WBC 8.4 103/ul Normal 4.0-11.0 The [facility] Comment on above: Performed By: #### C BC #### [facility] Laboratory [address] [address] [address] Rosa Tran PROF CHEM 8 (BAS METB)on Anion gap [Moles/Vol] 12.1 mmol/L Normal [facility] Comment on above: Performed By: #### B MP ####[facility] [address] [address]DrArgelia Tran Calcium [Mass/Vol] 8.1 mg/dL Critically low 8.5-10.1 The [facility] Comment on above: Performed By: #### B MP ####[facility] [address] [address]DrArgelia Tran Chloride [Moles/Vol] 108 mmol/L Critically high 98-107 The [facility] Comment on above: Performed By: #### B MP ####[facility] [address] [address]DrArgelia Tran CO2 [Moles/Vol] 24.5 mmol/L Normal 21.0-32.0 The [facility] Comment on above: Performed By: #### B MP ####[facility] [address] [address]Dr. Rosa Tran Creatinine [Mass/Vol] 0.64 mg/dL Critically low 0.70-1.30 [facility] Comment on above: Performed By: #### B MP ####[facility] [address] [address]Dr. Robynyoselin Marc EGFR-AF BAHRAINI >60 Normal >=60 The [facility] Comment on above: Performed By: #### B MP ####[facility] [address] [address]Dr. Rosa Tran EGFR-NON AF BAHRAINI >60 Normal >=60 The [facility] Comment on above: Performed By: #### B MP ####[facility] [address] [place], [place] [address]Dr. Rosa Tran Glucose [Mass/Vol] 132 mg/dL Critically high 74-106 The [facility] Comment on above: Performed By: #### B MP ####[facility] [address] [place], [place] [address]Dr. Rosa Tran Potassium [Moles/Vol] 3.6 mmol/L Normal 3.5-5.1 The [facility] Comment on above: Performed By: #### B MP ####[facility] [address] [place], [place] [address]Dr. Rosa Tran Sodium [Moles/Vol] 141 mmol/L Normal 136-145 The [facility] Comment on above: Performed By: #### B MP ####[facility] [address] [place], [place] [address]Dr. Rosa Tran Urea nitrogen [Mass/Vol] 7.0 mg/dL Normal 7.0-18.0 The [facility] Comment on above: Performed By: #### B MP ####[facility] [address] [place], [place] [address]Dr. Rosa Tran Urea nitrogen/Creatini ne [Mass ratio] 10.9 mg/mg Normal The [facility] Comment on above: Performed By: #### B MP ####[facility] [address] [place], [place] [address]Dr. Rosa Tran CBC AUTO DIFFon 10-11-2022 BASO # 0.0 103/ul Normal 0.0-0.1 The [facility] Comment on above: Performed By: #### C VDTBH #### [facility] Laboratory [address] [place] [address] Dr. Rosa Tran Basophils/100 WBC (Bld) 0.4 % Normal 0.2-2.0 [facility] Comment on above: Performed By: #### C VDTBH #### [facility] Laboratory [address] [place] [address] Dr. Rosa Tran EO # 0.0 103/ul Normal 0.0-0.7 The [facility] Comment on above: Performed By: #### C VDTBH #### [facility] Laboratory [address] [place] [address] Dr. Rosa Tran Eosinophils/100 WBC (Bld) 0.1 % Critically low 0.9-7.0 [facility] Comment on above: Performed By: #### C VDTBH #### [facility] Laboratory [address] [place] [address] Dr. Rosa Tran Erythrocyte distribution width (RBC) [Ratio] 13.2 % Normal 11.0-15.0 [facility] Comment on above: Performed By: #### C VDTBH #### [facility] Laboratory [address] [place] [address] Dr. Rosa Tran Hematocrit (Bld) [Volume fraction] 36.5 % Critically low 42.0-54.0 [facility] Comment on above: Performed By: #### C VDTBH #### [facility] Laboratory [address] [place] [address] Dr. Rosa Tran Hemoglobin (Bld) [Mass/Vol] 12.5 g/dL Critically low 14.0-18.0 The [facility] Comment on above: Performed By: #### C VDTBH #### [facility] Laboratory [address] [place] [address] Dr. Rosa Tran IG # 0.03 10e3/ul Normal 0.00-0.03 [facility] Comment on above: Performed By: #### C VDTBH #### [facility] Laboratory [address] [address] [address] Rosa Tran IG % 0.3 % Normal 0.0-0.5 The [facility] Comment on above: Performed By: #### C VDTBH #### [facility] Laboratory [address] [address] [address] Rosa Tran LYMPH # 1.7 103/ul Normal 1.2-3.8 The [facility] Comment on above: Performed By: #### C VDTBH #### [facility] Laboratory [address] [address] [address] Rosa Tran Lymphocytes/100 WBC (Bld) 16.2 % Critically low 20.5-60.0 The [facility] Comment on above: Performed By: #### C VDTBH #### [facility] Laboratory [address] [place] [address] Dr. Rosa Tran MANUAL DIFF REQ NO Normal The [facility] Comment on above: Performed By: #### C VDTBH #### [facility] Laboratory [address] [place] [address] Dr. Rosa Tran MCH (RBC) [Entitic mass] 30.8 pg Normal 25.9-34.0 The [facility] Comment on above: Performed By: #### C VDTBH #### [facility] Laboratory [address] [place] [address] Dr. Rosa Tran MCHC (RBC) [Mass/Vol] 34.2 g/dL Normal 29.9-35.2 The [facility] Comment on above: Performed By: #### C VDTBH #### [facility] Laboratory [address] [place] [address] Dr. Rosa Tran MCV (RBC) [Entitic vol] 89.9 fL Normal 80.0-94.0 The [facility] Comment on above: Performed By: #### C VDTBH #### [facility] Laboratory [address] [place] [address] Dr. Rosa Tran MONO # 0.7 103/ul Normal 0.3-0.8 The [facility] Comment on above: Performed By: #### C VDTB #### [facility] Laboratory [address] [place] [address] Dr. Rosa Tran Monocytes/100 WBC (Bld) 7.2 % Normal 1.7-12.0 The [facility] Comment on above: Performed By: #### C VDTBH #### [facility] Laboratory [address] [place] [address] Dr. Rosa Tran NEUT # 7.7 103/ul Critically high 1.4-6.5 The [facility] Comment on above: Performed By: #### C VDTBH #### [facility] Laboratory [address] [place] [address] Dr. Rosa Tran Neutrophils/100 WBC (Bld) 75.8 % Critically high 43.0-75.0 [facility] Comment on above: Performed By: #### C VDTBH #### [facility] Laboratory [address] [place] [address] Dr. Rosa Tran Platelet mean volume (Bld) [Entitic vol] 9.1 fL Critically low 9.5-13.5 [facility] Comment on above: Performed By: #### C VDTBH #### [facility] Laboratory [address] [place] [address] Dr. Rosa Tran PLT 223 103/ul Normal 150-450 The [facility] Comment on above: Performed By: #### C VDTBH #### [facility] Laboratory [address] [place] [address] Dr. Rosa Tran RBC 4.06 106/ul Critically low 4.70-6.10 The [facility] Comment on above: Performed By: #### C VDTBH #### [facility] Laboratory [address] [place] [address] Dr. Rosa Tran WBC 10.2 103/ul Normal 4.0-11.0 The [facility] Comment on above: Performed By: #### C VDTBH #### [facility] Laboratory [address] [place] [address] Dr. Rosa Tran BASO # 0.0 103/ul Normal 0.0-0.1 The [facility] Comment on above: Performed By: #### C BC #### [facility] Laboratory [address] [address] [address] Rosa Tran Basophils/100 WBC (Bld) 0.2 % Normal 0.2-2.0 [facility] Comment on above: Performed By: #### C BC #### [facility] Laboratory [address] [place] [address] Dr. Rosa Tran EO # 0.0 103/ul Normal 0.0-0.7 The [facility] Comment on above: Performed By: #### C BC #### [facility] Laboratory [address] [place] [address] Dr. Rosa Tran Eosinophils/100 WBC (Bld) 0.0 % Critically low 0.9-7.0 The [facility] Comment on above: Performed By: #### C BC #### [facility] Laboratory [address] [place] [address] Dr. Rosa Tran Erythrocyte distribution width (RBC) [Ratio] 13.2 % Normal 11.0-15.0 [facility] Comment on above: Performed By: #### C BC #### [facility] Laboratory [address] [place] [address] Dr. Rosa Tran Hematocrit (Bld) [Volume fraction] 35.1 % Critically low 42.0-54.0 [facility] Comment on above: Performed By: #### C BC #### [facility] Laboratory [address] [place] [address] Dr. Rosa Tran Hemoglobin (Bld) [Mass/Vol] 11.9 g/dL Critically low 14.0-18.0 The [facility] Comment on above: Performed By: #### C BC #### [facility] Laboratory [address] [place] [address] Dr. Rosa Tran IG # 0.03 10e3/ul Normal 0.00-0.03 The [facility] Comment on above: Performed By: #### C BC #### [facility] Laboratory [address] [place] [address] Dr. Rosa Tran IG % 0.3 % Normal 0.0-0.5 The [facility] Comment on above: Performed By: #### C BC #### [facility] Laboratory [address] [address] [address] Rosa Tran LYMPH # 1.2 103/ul Normal 1.2-3.8 The [facility] Comment on above: Performed By: #### C BC #### [facility] Laboratory [address] [place] [address] Dr. Rosa Tran Lymphocytes/100 WBC (Bld) 13.3 % Critically low 20.5-60.0 [facility] Comment on above: Performed By: #### C BC #### [facility] Laboratory [address] [place] [address] Dr. Rosa Tran MANUAL DIFF REQ NO Normal [facility] Comment on above: Performed By: #### C BC #### [facility] Laboratory [address] [place] [address] Dr. Rosa Tran MCH (RBC) [Entitic mass] 30.6 pg Normal 25.9-34.0 [facility] Comment on above: Performed By: #### C BC #### [facility] Laboratory [address] [place] [address] Dr. Rosa Tran MCHC (RBC) [Mass/Vol] 33.9 g/dL Normal 29.9-35.2 [facility] Comment on above: Performed By: #### C BC #### [facility] Laboratory [address] [place] [address] Dr. Rosa Tran MCV (RBC) [Entitic vol] 90.2 fL Normal 80.0-94.0 [facility] Comment on above: Performed By: #### C BC #### [facility] Laboratory [address] [place] [address] Dr. Rosa Tran MONO # 0.5 103/ul Normal 0.3-0.8 The [facility] Comment on above: Performed By: #### C BC #### [facility] Laboratory [address] [place] [address] Dr. Rosa Tran Monocytes/100 WBC (Bld) 5.4 % Normal 1.7-12.0 [facility] Comment on above: Performed By: #### C BC #### [facility] Laboratory [address] [place], [place] [address] Dr. Rosa Tran NEUT # 7.3 103/ul Critically high 1.4-6.5 The [facility] Comment on above: Performed By: #### C BC #### [facility] Laboratory [address] [place] [address] Dr. Rosa Tran Neutrophils/100 WBC (Bld) 80.8 % Critically high 43.0-75.0 [facility] Comment on above: Performed By: #### C BC #### [facility] Laboratory [address] [place] [address] Dr. Rosa Tran Platelet mean volume (Bld) [Entitic vol] 10.0 fL Normal 9.5-13.5 The [facility] Comment on above: Performed By: #### C BC #### [facility] Laboratory [address] [place] [address] Dr. Rosa Tran PLT 225 103/ul Normal 150-450 The [facility] Comment on above: Performed By: #### C BC #### [facility] Laboratory [address] [place] [address] Dr. Rosa Tran RBC 3.89 106/ul Critically low 4.70-6.10 The [facility] Comment on above: Performed By: #### C BC #### [facility] Laboratory [address] [place] [address] Dr. Rosa Tran WBC 9.1 103/ul Normal 4.0-11.0 The [facility] Comment on above: Performed By: #### C BC #### [facility] Laboratory [address] [place] [address] Dr. Rosa Tran [facility]-01 SARS-CoV-2 (COVID-19) RNA VIKAS+probe Ql (Unsp [...] for this test is supported by the Radiation Officer of Health and Human Service's declaration that [...] [facility] [address] [place] [address] Dr. Rosa Tran DRUG SCREEN RAPID (URINE)on 10-11-2022 AMP Negative Normal NEGATIVE [facility] Comment on above: Performed By: #### C VDTBH #### [facility] Laboratory [address] [place] [address] Dr. Rosa Tran BAR Negative Normal NEGATIVE [facility] Comment on above: Performed By: #### C VDTBH #### [facility] Laboratory [address] [place] [address] Dr. Rosa Tran BUP Negative Normal NEGATIVE [facility] Comment on above: Performed By: #### C VDTBH #### [facility] Laboratory [address] [place] [address] Dr. Rosa Tran BZO Negative Normal NEGATIVE [facility] Comment on above: Performed By: #### C VDTBH #### [facility] Laboratory [address] [place] [address] Dr. Rosa Tran JOSE LUIS Negative Normal NEGATIVE [facility] Comment on above: Performed By: #### C VDTBH #### [facility] Laboratory [address] [place] [address] Dr. Rosa Tran CUT-OFFS SEE BELOW Normal [...] [facility] [address] [place] [address] Dr. Rosa Tran DRUG CUT HEADER DRUG CLASS TEST SYST EM CUT-OFF CONCENTRATIONS ARE FOLLOWS: Normal [facility] Comment on above: Performed By: #### C VDTBH #### [facility] Laboratory [address] [place] [address] Dr. Rosa Tran mAMP Negative Normal NEGATIVE [facility] Comment on above: Performed By: #### C VDTBH #### [facility] Laboratory [address] [place] [address] Dr. Rosa Tran MTD Negative Normal NEGATIVE [facility] Comment on above: Performed By: #### C VDTBH #### [facility] Laboratory [address] [place] [address] Dr. Rosa Tran OPI Negative Normal NEGATIVE [facility] Comment on above: Performed By: #### C VDTBH #### [facility] Laboratory [address] [place] [address] Dr. Rosa Tran OXY Negative Normal NEGATIVE The [facility] Comment on above: Performed By: #### C VDTBH #### [facility] Laboratory [address] [place] [address] Dr. Rosa Tran PCP Negative Normal NEGATIVE [facility] Comment on above: Performed By: #### C VDTBH #### [facility] Laboratory [address] [place] [address] Dr. Rosa Tran PPX Negative Normal NEGATIVE [facility] Comment on above: Performed By: #### C VDTBH #### [facility] Laboratory [address] [place] [address] Dr. Rosa Tran TCA Positive Abnormal NEGATIVE [facility] Comment on above: Performed By: #### C VDTBH #### [facility] Laboratory [address] [address] [address] Rosa Tran THC Positive Abnormal NEGATIVE The [facility] Comment on above: Performed By: #### C VDTBH #### [facility] Laboratory [address] [address] [address] Rosa Tran LACTATE/LACTIC ACIDon 2022 Lactate [Moles/Vol] 1.4 mmol/L Normal 0.4-2.0 The [facility] Comment on above: Performed By: #### C VDTBH #### [facility] Laboratory [address] [address] [address] Rosa Tran LIPASEon 10-11-2022 Lipase [Catalytic activity/Vol] 56.0 U/L Critically low 73.0-393.0 The [facility] Comment on above: Performed By: #### C MP, LIPA ####[facility] [address] [address]DrArgelia Tran PROF 14(COMP METB)on 023 Albumin [Mass/Vol] 3.5 g/dL Normal 3.4-5.0 The [facility] Comment on above: Performed By: #### C MP, LIPA ####[facility] [address] [address]DrArgelia Tran Albumin/Globulin [Mass ratio] 1.2 {ratio} Normal The [facility] Comment on above: Performed By: #### C MP, LIPA ####[facility] [address] [address] Roas Tran ALP [Catalytic activity/Vol] 72 U/L Normal 46-116 The [facility] Comment on above: Performed By: #### C MP, LIPA ####[facility] [address] [address]Dr. Rosa Tran ALT [Catalytic activity/Vol] 27 U/L Normal 16-63 The [facility] Comment on above: Performed By: #### C MP, LIPA ####[facility] [address] [address]DrArgelia Tran Anion gap [Moles/Vol] 11.9 mmol/L Normal The [facility] Comment on above: Performed By: #### C MP, LIPA ####[facility] [address] [place], [place] [address]Dr. Rosa Tran AST [Catalytic activity/Vol] 22 U/L Normal 15-37 The [facility] Comment on above: Performed By: #### C MP, LIPA ####[facility] [address] [place], [place] [address]Dr. Rosa Tran Bilirubin [Mass/Vol] 0.3 mg/dL Normal 0.2-1.0 The [facility] Comment on above: Performed By: #### C MP, LIPA ####[facility] [facility] [address] [place], [place] [address]Dr. Rosa Tran Calcium [Mass/Vol] 8.5 mg/dL Normal 8.5-10.1 The [facility] Comment on above: Performed By: #### C LEYDI, LIPA ####[facility] Mort[address] [place], [place] [address]Dr. Rosa Tran Chloride [Moles/Vol] 108 mmol/L Critically high 98-107 The [facility] Comment on above: Performed By: #### C LEYDI, LIPA ####[facility] Cl[address] [place], [place] [address]Dr. Rosa Tran CO2 [Moles/Vol] 26.9 mmol/L Normal 21.0-32.0 The [facility] Comment on above: Performed By: #### C MP, LIPA ####[facility] [address] [place], [place] [address]Dr. Rosa Tran Creatinine [Mass/Vol] 0.69 mg/dL Critically low 0.70-1.30 The [facility] Comment on above: Performed By: #### C MP, LIPA ####[facility] [address] [place], [place] [address]Dr. Rosa Tran EGFR-AF BAHRAINI >60 Normal >=60 The [facility] Comment on above: Performed By: #### C MP, LIPA ####[facility] [address] [place], [place] [address]Dr. Rosa Tran EGFR-NON AF BAHRAINI >60 Normal >=60 The [facility] Comment on above: Performed By: #### C LEYDI, LIPA ####[facility] [address] [address]Dr. Rosa Tran Globulin (S) [Mass/Vol] 2.9 g/dL Normal The [facility] Comment on above: Performed By: #### C MP, LIPA ####[facility] [address] [place], [place] [address]Dr. Rosa Tran Glucose [Mass/Vol] 113 mg/dL Critically high 74-106 The [facility] Comment on above: Performed By: #### C LEYDI, LIPA ####[facility] [address] [place], [place] [address]Dr. Rosa Tran Potassium [Moles/Vol] 3.8 mmol/L Normal 3.5-5.1 The [facility] Comment on above: Performed By: #### C LEYDI, LIPA ####[facility] [address] [place], [place] [address]Dr. Rosa Tran Protein [Mass/Vol] 6.4 g/dL Normal 6.4-8.2 The [facility] Comment on above: Performed By: #### C LEYDI, LIPA ####[facility] [address] [place], [place] [address]Dr. Rosa Tran Sodium [Moles/Vol] 143 mmol/L Normal 136-145 The [facility] Comment on above: Performed By: #### C MP, LIPA ####[facility] [address] [place], [place] [address]Dr. Rosa Tran Urea nitrogen [Mass/Vol] 8.0 mg/dL Normal 7.0-18.0 The [facility] Comment on above: Performed By: #### C MP, LIPA ####[facility] [address] [place], [place] [address]Dr. Rosa Tran Urea nitrogen/Creatini ne [Mass ratio] 11.6 mg/mg Normal The [facility] Comment on above: Performed By: #### C MP, LIPA ####[facility] [address] [place], [place] [address]CnDr. Rosa Tran Albumin [Mass/Vol] 3.2 g/dL Critically low 3.4-5.0 The [facility] Comment on above: Performed By: #### C VDTBH #### [facility] Laboratory [address] [address] [address] Rosa Tran Albumin/Globulin [Mass ratio] 1.2 {ratio} Normal The [facility] Comment on above: Performed By: #### C VDTBH #### [facility] Laboratory [address] [address] [address] Rosa Tran ALP [Catalytic activity/Vol] 75 U/L Normal 46-116 The [facility] Comment on above: Performed By: #### C VDTBH #### [facility] Laboratory [address] [address] [address] Rosa Tran ALT [Catalytic activity/Vol] 24 U/L Normal 16-63 The [facility] Comment on above: Performed By: #### C VDTBH #### [facility] Laboratory [address] [address] [address] Rosa Tran Anion gap [Moles/Vol] 10.7 mmol/L Normal [facility] Comment on above: Performed By: #### C VDTBH #### [facility] Laboratory [address] [address] [address] Rosa Tran AST [Catalytic activity/Vol] 18 U/L Normal 15-37 The [facility] Comment on above: Performed By: #### C VDTBH #### [facility] Laboratory [address] [address] [address] Rosa Tran Bilirubin [Mass/Vol] 0.4 mg/dL Normal 0.2-1.0 The [facility] Comment on above: Performed By: #### C VDTBH #### [facility] Laboratory [address] [address] [address] Rosa Tran Calcium [Mass/Vol] 8.2 mg/dL Critically low 8.5-10.1 The [facility] Comment on above: Performed By: #### C VDTBH #### [facility] Laboratory [address] [address] [address] Rosa Tran Chloride [Moles/Vol] 106 mmol/L Normal 98-107 The [facility] Comment on above: Performed By: #### C VDTBH #### [facility] Laboratory [address] [place] [address] Dr. Rosa Tran CO2 [Moles/Vol] 24.8 mmol/L Normal 21.0-32.0 The [facility] Comment on above: Performed By: #### C VDTBH #### [facility] Laboratory [address] [place] [address] Dr. Rosa Tran Creatinine [Mass/Vol] 0.74 mg/dL Normal 0.70-1.30 The [facility] Comment on above: Performed By: #### C VDTBH #### [facility] Laboratory [address] [place] [address] Dr. Rosa Tran EGFR-AF BAHRAINI >60 Normal >=60 The [facility] Comment on above: Performed By: #### C VDTBH #### [facility] Laboratory [address] [place] [address] Dr. Rosa Tran EGFR-NON AF BAHRAINI >60 Normal >=60 The [facility] Comment on above: Performed By: #### C VDTBH #### [facility] Laboratory [address] [place] [address] Dr. Rosa Tran Globulin (S) [Mass/Vol] 2.7 g/dL Normal The [facility] Comment on above: Performed By: #### C VDTBH #### [facility] Laboratory [address] [place] [address] Dr. Rosa Tran Glucose [Mass/Vol] 111 mg/dL Critically high 74-106 The [facility] Comment on above: Performed By: #### C VDTBH #### [facility] Laboratory [address] [place] [address] Dr. Rosa Tran Potassium [Moles/Vol] 3.5 mmol/L Normal 3.5-5.1 The [facility] Comment on above: Performed By: #### C VDTBH #### [facility] Laboratory [address] [place] [address] Dr. Rosa Tran Protein [Mass/Vol] 5.9 g/dL Critically low 6.4-8.2 [facility] Comment on above: Performed By: #### C VDTBH #### [facility] Laboratory [address] [address] [address] Rosa Tran Sodium [Moles/Vol] 138 mmol/L Normal 136-145 The [facility] Comment on above: Performed By: #### C VDTBH #### [facility] Laboratory [address] [address] [address] Rosa Tran Urea nitrogen [Mass/Vol] 9.0 mg/dL Normal 7.0-18.0 [facility] Comment on above: Performed By: #### C VDTBH #### [facility] Laboratory [address] [place] [address] Dr. Rosa Tran Urea nitrogen/Creatini ne [Mass ratio] 12.2 mg/mg Normal [facility] Comment on above: Performed By: #### C VDTBH #### [facility] Laboratory [address] [place] [address] Dr. Rosa Tran AMYLASEon 10-10-2022 Amylase [Catalytic activity/Vol] 75 U/L Normal 25-115 The [facility] Comment on above: Performed By: #### A MY, CMP, LIPA ####[facility] [address] [address]Dr. Rosa Tran CBC AUTO DIFFon 10-10-2022 BASO # 0.1 103/ul Normal 0.0-0.1 [facility] Comment on above: Performed By: #### C BC #### [facility] Laboratory [address] [place] [address] Dr. Rosa Tran Basophils/100 WBC (Bld) 0.5 % Normal 0.2-2.0 The [facility] Comment on above: Performed By: #### C BC #### [facility] Laboratory [address] [place] [address] Dr. Rosa Tran EO # 0.2 103/ul Normal 0.0-0.7 The [facility] Comment on above: Performed By: #### C BC #### [facility] Laboratory [address] [place] [address] Dr. Rosa Tran Eosinophils/100 WBC (Bld) 1.4 % Normal 0.9-7.0 The [facility] Comment on above: Performed By: #### C BC #### [facility] Laboratory [address] [place] [address] Dr. Rosa Tran Erythrocyte distribution width (RBC) [Ratio] 13.2 % Normal 11.0-15.0 The [facility] Comment on above: Performed By: #### C BC #### [facility] Laboratory [address] [place] [address] Dr. Rosa Tran Hematocrit (Bld) [Volume fraction] 42.7 % Normal 42.0-54.0 The [facility] Comment on above: Performed By: #### C BC #### [facility] Laboratory [address] [place] [address] Dr. Rosa Tran Hemoglobin (Bld) [Mass/Vol] 14.5 g/dL Normal 14.0-18.0 The [facility] Comment on above: Performed By: #### C BC #### [facility] Laboratory [address] [place] [address] Dr. Rosa Tran IG # 0.03 10e3/ul Normal 0.00-0.03 The [facility] Comment on above: Performed By: #### C BC #### [facility] Laboratory [address] [place] [address] Dr. Rosa Tran IG % 0.2 % Normal 0.0-0.5 The [facility] Comment on above: Performed By: #### C BC #### [facility] Laboratory [address] [place] [address] Dr. Rosa Tran LYMPH # 2.0 103/ul Normal 1.2-3.8 The [facility] Comment on above: Performed By: #### C BC #### [facility] Laboratory [address] [place] [address] Dr. Rosa Tarn Lymphocytes/100 WBC (Bld) 16.1 % Critically low 20.5-60.0 The [facility] Comment on above: Performed By: #### C BC #### [facility] Laboratory [address] [place] [address] Dr. Rosa Tran MANUAL DIFF REQ NO Normal The [facility] Comment on above: Performed By: #### C BC #### [facility] Laboratory [address] [place] [address] Dr. Rosa Tran MCH (RBC) [Entitic mass] 30.4 pg Normal 25.9-34.0 [facility] Comment on above: Performed By: #### C BC #### [facility] Laboratory [address] [place] [address] Dr. Rosa Tran MCHC (RBC) [Mass/Vol] 34.0 g/dL Normal 29.9-35.2 The [facility] Comment on above: Performed By: #### C BC #### [facility] Laboratory [address] [place] [address] Dr. Rosa Tran MCV (RBC) [Entitic vol] 89.5 fL Normal 80.0-94.0 [facility] Comment on above: Performed By: #### C BC #### [facility] Laboratory [address] [place] [address] Dr. Rosa Tran MONO # 0.6 103/ul Normal 0.3-0.8 The [facility] Comment on above: Performed By: #### C BC #### [facility] Laboratory [address] [place] [address] Dr. Rosa Tran Monocytes/100 WBC (Bld) 4.6 % Normal 1.7-12.0 The [facility] Comment on above: Performed By: #### C BC #### [facility] Laboratory [address] [place] [address] Dr. Rosa Tran NEUT # 9.7 103/ul Critically high 1.4-6.5 The [facility] Comment on above: Performed By: #### C BC #### [facility] Laboratory [address] [place] [address] Dr. Rosa Tran Neutrophils/100 WBC (Bld) 77.2 % Critically high 43.0-75.0 The [facility] Comment on above: Performed By: #### C BC #### [facility] Laboratory [address] [place] [address] Dr. Rosa Tran Platelet mean volume (Bld) [Entitic vol] 9.7 fL Normal 9.5-13.5 The [facility] Comment on above: Performed By: #### C BC #### [facility] Laboratory [address] [place] [address] Dr. Rosa Tran PLT 284 103/ul Normal 150-450 The [facility] Comment on above: Performed By: #### C BC #### [facility] Laboratory [address] [address] [address] Rosa Tran RBC 4.77 106/ul Normal 4.70-6.10 The [facility] Comment on above: Performed By: #### C BC #### [facility] Laboratory [address] [place] [address] Dr. Rosa Tran WBC 12.5 103/ul Critically high 4.0-11.0 The [facility] Comment on above: Performed By: #### C BC #### [facility] Laboratory [address] [place] [address] Dr. Rosa Tran Covid-19 PCR (CVDTB)on 10-01 [...] for this test is supported by the Radiation Officer of Health and Human Service's declaration that [...] [facility] [address] [address] [address] Rosa Tran DRUG SCREEN RAPID (URINE)on 10-10-2022 AMP Negative Normal NEGATIVE The [facility] Comment on above: Performed By: #### D RUGRPD ####[facility] [address] [address]Dr. Rosa Tran BAR Negative Normal NEGATIVE The [facility] Comment on above: Performed By: #### D RUGRPD ####[facility] [address] [address]Dr. Rosa Tran BUP Negative Normal NEGATIVE The [facility] Comment on above: Performed By: #### D RUGRPD ####[facility] [address] [address]Dr. Rosa Tran BZO Negative Normal NEGATIVE The [facility] Comment on above: Performed By: #### D RUGRPD ####[facility] [address] [address]Dr. Rosa Tran JOSE LUIS Negative Normal NEGATIVE The [facility] Comment on above: Performed By: #### D RUGRPD ####[facility] [address] [address]Dr. Rosa Tran CUT-OFFS SEE BELOW Normal The [...] ####[facility] [address] [place], [place] [address]Dr. Rosa Tran DRUG CUT HEADER DRUG CLASS TEST SYST EM CUT-OFF CONCENTRATIONS ARE FOLLOWS: Normal The [facility] Comment on above: Performed By: #### D RUGRPD ####[facility] [address] [address]Dr. Rosa Tran mAMP Negative Normal NEGATIVE The [facility] Comment on above: Performed By: #### D RUGRPD ####[facility] [address] [address]Dr. Rosa Tran MTD Negative Normal NEGATIVE The [facility] Comment on above: Performed By: #### D RUGRPD ####[facility] [address] [address]Dr. Rosa Tran OPI Negative Normal NEGATIVE The [facility] Comment on above: Performed By: #### D RUGRPD ####[facility] [address] [place], [place] [address]Dr. Rosa Tran OXY Negative Normal NEGATIVE The [facility] Comment on above: Performed By: #### D RUGRPD ####[facility] [address] [place], [place] [address]Dr. Rosa Tran PCP Negative Normal NEGATIVE The [facility] Comment on above: Performed By: #### D RUGRPD ####[facility] [address] [place], [place] [address]Dr. Rosa Tran PPX Negative Normal NEGATIVE The [facility] Comment on above: Performed By: #### D RUGRPD ####[facility] [address] [place], [place] [address]Dr. Rosa Tran TCA Positive Abnormal NEGATIVE The [facility] Comment on above: Performed By: #### D RUGRPD ####[facility] [address] [address]Dr. Rosa Tran THC Positive Abnormal NEGATIVE The [facility] Comment on above: Performed By: #### D RUGRPD ####[facility] [address] [place], [place] [address]Dr. Rosa Tran LACTATE/LACTIC ACIDon 2022 Lactate [Moles/Vol] 1.8 mmol/L Normal 0.4-2.0 The [facility] Comment on above: Performed By: #### L ACT ####[facility] [address] [address]Dr. Rosa Tran LIPASEon 10-10-2022 Lipase [Catalytic activity/Vol] 84.0 U/L Normal 73.0-393.0 [facility] Comment on above: Performed By: #### A MY, CMP, LIPA ####[facility] [address] [address]Dr. Rosa Tran PROF 14(COMP METB)on 023 Albumin [Mass/Vol] 4.2 g/dL Normal 3.4-5.0 [facility] Comment on above: Performed By: #### C VDTBH #### [facility] Laboratory [address] [place] [address] Dr. Rosa Tran Albumin/Globulin [Mass ratio] 1.3 {ratio} Normal [facility] Comment on above: Performed By: #### C VDTBH #### [facility] Laboratory [address] [place] [address] Dr. Rosa Tran ALP [Catalytic activity/Vol] 104 U/L Normal 46-116 The [facility] Comment on above: Performed By: #### C VDTBH #### [facility] Laboratory [address] [place] [address] Dr. Rosa Tran ALT [Catalytic activity/Vol] 32 U/L Normal 16-63 The [facility] Comment on above: Performed By: #### C VDTBH #### [facility] Laboratory [address] [address] [address] Rosa Tran Anion gap [Moles/Vol] 12.6 mmol/L Normal [facility] Comment on above: Performed By: #### C VDTBH #### [facility] Laboratory [address] [place] [address] Dr. Rosa Tran AST [Catalytic activity/Vol] 18 U/L Normal 15-37 [facility] Comment on above: Performed By: #### C VDTBH #### [facility] Laboratory [address] [place] [address] Dr. Rosa Tran Bilirubin [Mass/Vol] 0.3 mg/dL Normal 0.2-1.0 [facility] Comment on above: Performed By: #### C VDTBH #### [facility] Laboratory [address] [place] [address] Dr. Rosa Tran Calcium [Mass/Vol] 9.3 mg/dL Normal 8.5-10.1 The [facility] Comment on above: Performed By: #### C VDTBH #### [facility] Laboratory [address] [place] [address] Dr. Rosa Tran Chloride [Moles/Vol] 104 mmol/L Normal 98-107 The [facility] Comment on above: Performed By: #### C VDTBH #### [facility] Laboratory [address] [place] [address] Dr. Rosa Tran CO2 [Moles/Vol] 26.2 mmol/L Normal 21.0-32.0 [facility] Comment on above: Performed By: #### C VDTBH #### [facility] Laboratory [address] [place] [address] Dr. Rosa Tran Creatinine [Mass/Vol] 1.00 mg/dL Normal 0.70-1.30 The [facility] Comment on above: Performed By: #### C VDTBH #### [facility] Laboratory [address] [place] [address] Dr. Rosa Tran EGFR-AF BAHRAINI >60 Normal >=60 The [facility] Comment on above: Performed By: #### C VDTBH #### [facility] Laboratory [address] [place] [address] Dr. Rosa Tran EGFR-NON AF BAHRAINI >60 Normal >=60 The [facility] Comment on above: Performed By: #### C VDTBH #### [facility] Laboratory [address] [place] [address] Dr. Rosa Tran Globulin (S) [Mass/Vol] 3.3 g/dL Normal The [facility] Comment on above: Performed By: #### C VDTBH #### [facility] Laboratory [address] [place] [address] Dr. Rosa Tran Glucose [Mass/Vol] 136 mg/dL Critically high 74-106 [facility] Comment on above: Performed By: #### C VDTBH #### [facility] Laboratory [address] [address] [address] Rosa Tran Potassium [Moles/Vol] 3.8 mmol/L Normal 3.5-5.1 [facility] Comment on above: Performed By: #### C VDTBH #### [facility] Laboratory [address] [place] [address] Dr. Rosa Tran Protein [Mass/Vol] 7.5 g/dL Normal 6.4-8.2 [facility] Comment on above: Performed By: #### C VDTBH #### [facility] Laboratory [address] [place] [address] Dr. Rosa Tran Sodium [Moles/Vol] 139 mmol/L Normal 136-145 [facility] Comment on above: Performed By: #### C VDTBH #### [facility] Laboratory [address] [place] [address] Dr. Rosa Tran Urea nitrogen [Mass/Vol] 11.0 mg/dL Normal 7.0-18.0 [facility] Comment on above: Performed By: #### C VDTBH #### [facility] Laboratory [address] [place] [address] Dr. Rosa Tran Urea nitrogen/Creatini ne [Mass ratio] 11.0 mg/mg Normal [facility] Comment on above: Performed By: #### C VDTBH #### [facility] Laboratory [address] [place] [address] Dr. Rosa Tran XR ABD FLAT UP_PA [...] [facility] [address] [address] [address] Rosa Tran AMYLASEon 08-14-2022 Amylase [Catalytic activity/Vol] 39 U/L Normal 25-115 [facility] Comment on above: Performed By: #### A MY, CMP, LIPA ####[facility] [address] [address]Dr. Rosa Tran CBC AUTO DIFFon 08-14-2022 BASO # 0.1 103/ul Normal 0.0-0.1 [facility] Comment on above: Performed By: #### C BC ####[facility] [address] [address]Dr. Rosa Tran Basophils/100 WBC (Bld) 0.7 % Normal 0.2-2.0 [facility] Comment on above: Performed By: #### C BC ####[facility] [address] [address]Dr. Rosa Tran EO # 0.1 103/ul Normal 0.0-0.7 [facility] Comment on above: Performed By: #### C BC ####[facility] [address] [address]Dr. Rosa Tran Eosinophils/100 WBC (Bld) 0.7 % Critically low 0.9-7.0 The [facility] Comment on above: Performed By: #### C BC ####[facility] [address] [address]Dr. Rosa Tran Erythrocyte distribution width (RBC) [Ratio] 13.2 % Normal 11.0-15.0 [facility] Comment on above: Performed By: #### C BC ####[facility] [address] [address]Dr. Rosa Tran Hematocrit (Bld) [Volume fraction] 33.1 % Critically low 42.0-54.0 [facility] Comment on above: Performed By: #### C BC ####[facility] [address] [place], [place] [address]Dr. Rosa Tran Hemoglobin (Bld) [Mass/Vol] 11.2 g/dL Critically low 14.0-18.0 [facility] Comment on above: Performed By: #### C BC ####[facility] [address] [place], [place] [address]Dr. Rosa Tran IG # 0.02 10e3/ul Normal 0.00-0.03 [facility] Comment on above: Performed By: #### C BC ####[facility] [address] [place], [place] [address]Dr. Rosa Tran IG % 0.3 % Normal 0.0-0.5 [facility] Comment on above: Performed By: #### C BC ####[facility] R[address] [place], [place] [address]Dr. Rosa Tran LYMPH # 2.9 103/ul Normal 1.2-3.8 [facility] Comment on above: Performed By: #### C BC ####[facility] [address] [place], [place] [address]Dr. Rosa Tran Lymphocytes/100 WBC (Bld) 39.6 % Normal 20.5-60.0 [facility] Comment on above: Performed By: #### C BC ####[facility] [address] [address]Dr. Rosa Marc MANUAL DIFF REQ NO Normal [facility] Comment on above: Performed By: #### C BC ####[facility] [address] [address]Dr. Rosa Tran MCH (RBC) [Entitic mass] 30.6 pg Normal 25.9-34.0 [facility] Comment on above: Performed By: #### C BC ####[facility] [address] [place], [place] [address]Dr. Rosa Marc MCHC (RBC) [Mass/Vol] 33.8 g/dL Normal 29.9-35.2 [facility] Comment on above: Performed By: #### C BC ####[facility] [address] [place], [place] [address]Dr. Robynyoselin Tran MCV (RBC) [Entitic vol] 90.4 fL Normal 80.0-94.0 [facility] Comment on above: Performed By: #### C BC ####[facility] [address] [place], [place] [address]Dr. Rosa Marc MONO # 0.6 103/ul Normal 0.3-0.8 [facility] Comment on above: Performed By: #### C BC ####[facility] Buf[address]stp[address] [place], [place] [address]Dr. Rosa Tran Monocytes/100 WBC (Bld) 7.6 % Normal 1.7-12.0 [facility] Comment on above: Performed By: #### C BC ####[facility] [address] [place], [place] [address]Dr. Robynyoselin Marc NEUT # 3.8 103/ul Normal 1.4-6.5 [facility] Comment on above: Performed By: #### C BC ####[facility] [address] [place], [place] [address]Dr. Rosa Tran Neutrophils/100 WBC (Bld) 51.1 % Normal 43.0-75.0 [facility] Comment on above: Performed By: #### C BC ####[facility] [address] [place], [place] [address]Dr. Rosa Tran Platelet mean volume (Bld) [Entitic vol] 9.7 fL Normal 9.5-13.5 [facility] Comment on above: Performed By: #### C BC ####[facility] [address] [address]Dr. Rosa Tran PLT 208 103/ul Normal 150-450 [facility] Comment on above: Performed By: #### C BC ####[facility] [address] [address]Dr. Rosa Tran RBC 3.66 106/ul Critically low 4.70-6.10 The [facility] Comment on above: Performed By: #### C BC ####[facility] [address] [address]Dr. Rosa Tran WBC 7.3 103/ul Normal 4.0-11.0 [facility] Comment on above: Performed By: #### C BC ####[facility] [address] [address]Dr. Rosa Marc LIPASEon 08-14-2022 Lipase [Catalytic activity/Vol] 60.0 U/L Critically low 73.0-393.0 The [facility] Comment on above: Performed By: #### A MY, CMP, LIPA ####[facility] [address] [address]Dr. Robynyoselin Tran PROF 14(COMP METB)on 023 Albumin [Mass/Vol] 2.9 g/dL Critically low 3.4-5.0 [facility] Comment on above: Performed By: #### A MY, CMP, LIPA ####[facility] [address] [address]Dr. Rosa Tran Albumin/Globulin [Mass ratio] 1.2 {ratio} Normal The [facility] Comment on above: Performed By: #### A MY, CMP, LIPA ####[facility] [address] [address]Dr. Robynyoselin Tran ALP [Catalytic activity/Vol] 64 U/L Normal 46-116 The [facility] Comment on above: Performed By: #### A MY, CMP, LIPA ####[facility] [address] [address]Dr. Rosa Tran ALT [Catalytic activity/Vol] 41 U/L Normal 16-63 The [facility] Comment on above: Performed By: #### A MY, CMP, LIPA ####[facility] [address] [address]Dr. Rosa Tran Anion gap [Moles/Vol] 8.7 mmol/L Normal The [facility] Comment on above: Performed By: #### A MY, CMP, LIPA ####[facility] [address] [place], [place] [address]Dr. Rosa Tran AST [Catalytic activity/Vol] 31 U/L Normal 15-37 The [facility] Comment on above: Performed By: #### A MY, CMP, LIPA ####[facility] [address] [place], [place] [address]Dr. Rosa Tran Bilirubin [Mass/Vol] 0.5 mg/dL Normal 0.2-1.0 The [facility] Comment on above: Performed By: #### A MY, CMP, LIPA ####[facility] [address] [place], [place] [address]Dr. Rosa Tran Calcium [Mass/Vol] 8.3 mg/dL Critically low 8.5-10.1 [facility] Comment on above: Performed By: #### A MY, CMP, LIPA ####[facility] [address] [address]Dr. Rosa Tran Chloride [Moles/Vol] 110 mmol/L Critically high 98-107 The [facility] Comment on above: Performed By: #### A MY, CMP, LIPA ####[facility] [address] [place], [place] [address]Dr. Rosa Tran CO2 [Moles/Vol] 27.0 mmol/L Normal 21.0-32.0 The [facility] Comment on above: Performed By: #### A MY, CMP, LIPA ####[facility] [address] [place], [place] [address]Dr. Rosa Tran Creatinine [Mass/Vol] 0.77 mg/dL Normal 0.70-1.30 The [facility] Comment on above: Performed By: #### A MY, CMP, LIPA ####[facility] [address] [address]Dr. Rosa Tran EGFR-AF BAHRAINI >60 Normal >=60 The [facility] Comment on above: Performed By: #### A MY, CMP, LIPA ####[facility] [address] [address]Dr. Rosa Tran EGFR-NON AF BAHRAINI >60 Normal >=60 The [facility] Comment on above: Performed By: #### A MY, CMP, LIPA ####[facility] [address] [address]Dr. Rosa Tran Globulin (S) [Mass/Vol] 2.4 g/dL Normal The [facility] Comment on above: Performed By: #### A MY, CMP, LIPA ####[facility] [address] [address]Dr. Rosa Tran Glucose [Mass/Vol] 128 mg/dL Critically high 74-106 The [facility] Comment on above: Performed By: #### A MY, CMP, LIPA ####[facility] [address] [address]Dr. Rosa Tran Potassium [Moles/Vol] 3.6 mmol/L Normal 3.5-5.1 [facility] Comment on above: Performed By: #### A MY, CMP, LIPA ####[facility] [address] [address]Dr. Rosa Tran Protein [Mass/Vol] 5.3 g/dL Critically low 6.4-8.2 The [facility] Comment on above: Performed By: #### A MY, CMP, LIPA ####[facility] [address] [address]Dr. Rosa Tran Sodium [Moles/Vol] 142 mmol/L Normal 136-145 The [facility] Comment on above: Performed By: #### A MY, CMP, LIPA ####[facility] [address] [address]Dr. Rosa Tran Urea nitrogen [Mass/Vol] 6.0 mg/dL Critically low 7.0-18.0 The [facility] Comment on above: Performed By: #### A MY, CMP, LIPA ####[facility] [address] [address]Dr. Rosa Tran Urea nitrogen/Creatini ne [Mass ratio] 7.8 mg/mg Normal The [facility] Comment on above: Performed By: #### A MY, CMP, LIPA ####[facility] [address] [address]Dr. Rosa Tran AMMONIAon 08-13-2022 Ammonia (P) [Moles/Vol] 37 umol/L Critically high -32 [facility] Comment on above: Performed By: #### C VDTB #### [facility] Laboratory [address] [place] [address] Dr. Rosa Tran AMYLASEon 08-13-2022 Amylase [Catalytic activity/Vol] 42 U/L Normal 25-115 The [facility] Comment on above: Performed By: #### A MY, LIPA, CMP ####[facility] [address] [place], [place] [address]Dr. Rosa Tran CBC AUTO DIFFon 08-13-2022 BASO # 0.0 103/ul Normal 0.0-0.1 The [facility] Comment on above: Performed By: #### C VDTBH #### [facility] Laboratory [address] [place] [address] Dr. Rosa Tran Basophils/100 WBC (Bld) 0.3 % Normal 0.2-2.0 The [facility] Comment on above: Performed By: #### C VDTBH #### [facility] Laboratory [address] [place] [address] Dr. Rosa Tran EO # 0.0 103/ul Normal 0.0-0.7 [facility] Comment on above: Performed By: #### C VDTBH #### [facility] Laboratory [address] [place] [address] Dr. Rosa Tran Eosinophils/100 WBC (Bld) 0.1 % Critically low 0.9-7.0 [facility] Comment on above: Performed By: #### C VDTBH #### [facility] Laboratory [address] [place] [address] Dr. Rosa Tran Erythrocyte distribution width (RBC) [Ratio] 13.2 % Normal 11.0-15.0 [facility] Comment on above: Performed By: #### C VDTBH #### [facility] Laboratory [address] [place] [address] Dr. Rosa Tran Hematocrit (Bld) [Volume fraction] 32.5 % Critically low 42.0-54.0 [facility] Comment on above: Performed By: #### C VDTBH #### [facility] Laboratory [address] [place] [address] Dr. Rosa Tran Hemoglobin (Bld) [Mass/Vol] 11.3 g/dL Critically low 14.0-18.0 [facility] Comment on above: Performed By: #### C VDTBH #### [facility] Laboratory [address] [place] [address] Dr. Rosa Tran IG # 0.02 10e3/ul Normal 0.00-0.03 [facility] Comment on above: Performed By: #### C VDTBH #### [facility] Laboratory [address] [place] [address] Dr. Rosa Tran IG % 0.3 % Normal 0.0-0.5 [facility] Comment on above: Performed By: #### C VDTBH #### [facility] Laboratory [address] [place] [address] Dr. Rosa Tran LYMPH # 1.8 103/ul Normal 1.2-3.8 The [facility] Comment on above: Performed By: #### C VDTBH #### [facility] Laboratory [address] [place] [address] Dr. Rosa Tran Lymphocytes/100 WBC (Bld) 23.0 % Normal 20.5-60.0 The [facility] Comment on above: Performed By: #### C VDTBH #### [facility] Laboratory [address] [place] [address] Dr. Rosa Tran MANUAL DIFF REQ NO Normal The [facility] Comment on above: Performed By: #### C VDTBH #### [facility] Laboratory [address] [place] [address] Dr. Rosa Tran MCH (RBC) [Entitic mass] 31.5 pg Normal 25.9-34.0 [facility] Comment on above: Performed By: #### C VDTBH #### [facility] Laboratory [address] [place] [address] Dr. Rosa Tran MCHC (RBC) [Mass/Vol] 34.8 g/dL Normal 29.9-35.2 The [facility] Comment on above: Performed By: #### C VDTBH #### [facility] Laboratory [address] [place] [address] Dr. Rosa Tran MCV (RBC) [Entitic vol] 90.5 fL Normal 80.0-94.0 [facility] Comment on above: Performed By: #### C VDTBH #### [facility] Laboratory [address] [place] [address] Dr. Rosa Tran MONO # 0.5 103/ul Normal 0.3-0.8 [facility] Comment on above: Performed By: #### C VDTBH #### [facility] Laboratory [address] [place] [address] Dr. Rosa Tran Monocytes/100 WBC (Bld) 6.8 % Normal 1.7-12.0 [facility] Comment on above: Performed By: #### C VDTBH #### [facility] Laboratory [address] [place] [address] Dr. Rosa Tran NEUT # 5.4 103/ul Normal 1.4-6.5 The [facility] Comment on above: Performed By: #### C VDTBH #### [facility] Laboratory [address] [place] [address] Dr. Rosa Tran Neutrophils/100 WBC (Bld) 69.5 % Normal 43.0-75.0 [facility] Comment on above: Performed By: #### C VDTBH #### [facility] Laboratory [address] [address] [address] Rosa Tran Platelet mean volume (Bld) [Entitic vol] 9.9 fL Normal 9.5-13.5 [facility] Comment on above: Performed By: #### C VDTBH #### [facility] Laboratory [address] [address] [address] Rosa Tran PLT 197 103/ul Normal 150-450 The [facility] Comment on above: Performed By: #### C VDTBH #### [facility] Laboratory [address] [address] [address] Rosa Tran RBC 3.59 106/ul Critically low 4.70-6.10 [facility] Comment on above: Performed By: #### C VDTBH #### [facility] Laboratory [address] [address] [address] Rosa Tran WBC 7.8 103/ul Normal 4.0-11.0 [facility] Comment on above: Performed By: #### C VDTBH #### [facility] Laboratory [address] [address] [address] Rosa Tran LIPASEon 08-13-2022 Lipase [Catalytic activity/Vol] 52.0 U/L Critically low 73.0-393.0 [facility] Comment on above: Performed By: #### A CARMEN LIPA, CMP ####[facility] [address] [address]Dr. Rosa Tran PROF 14(COMP METB)on 023 Albumin [Mass/Vol] 3.3 g/dL Critically low 3.4-5.0 [facility] Comment on above: Performed By: #### A MY, LIPA, CMP ####[facility] [address] [address]Dr. Rosa Tran Albumin/Globulin [Mass ratio] 1.4 {ratio} Normal [facility] Comment on above: Performed By: #### A MY, LIPA, CMP ####[facility] [address] [address]Dr. Rosa Tran ALP [Catalytic activity/Vol] 70 U/L Normal 46-116 The [facility] Comment on above: Performed By: #### A ADRIANO MORALES, CMP ####[facility] [address] [address]Dr. Rosa Tran ALT [Catalytic activity/Vol] 31 U/L Normal 16-63 The [facility] Comment on above: Performed By: #### A CARMEN LIPA, CMP ####[facility] [address] [address]Dr. Rosa Tran Anion gap [Moles/Vol] 12.0 mmol/L Normal The [facility] Comment on above: Performed By: #### A CARMEN LIPA, CMP ####[facility] [address] [address]Dr. Rosa Tran AST [Catalytic activity/Vol] 30 U/L Normal 15-37 The [facility] Comment on above: Performed By: #### A CARMEN LIPA, CMP ####[facility] [address] [address]Dr. Rosa Tran Bilirubin [Mass/Vol] 0.5 mg/dL Normal 0.2-1.0 The [facility] Comment on above: Performed By: #### A ADRIANO MORALES, CMP ####[facility] [address] [address]Dr. oRsa Tran Calcium [Mass/Vol] 8.2 mg/dL Critically low 8.5-10.1 [facility] Comment on above: Performed By: #### A CARMEN LIPA, CMP ####[facility] [address] [address]Dr. Rosa Tran Chloride [Moles/Vol] 108 mmol/L Critically high 98-107 The [facility] Comment on above: Performed By: #### A CARMEN LIPA, CMP ####[facility] [address] [address]Dr. Rosa Tran CO2 [Moles/Vol] 25.5 mmol/L Normal 21.0-32.0 [facility] Comment on above: Performed By: #### A CARMEN LIPA, CMP ####[facility] [address] [id number]. Rosa Tran Creatinine [Mass/Vol] 0.68 mg/dL Critically low 0.70-1.30 The [facility] Comment on above: Performed By: #### A MY, LIPA, CMP ####[facility] [address] [id number]. Rosa Tran EGFR-AF BAHRAINI >60 Normal >=60 [facility] Comment on above: Performed By: #### A MY, LIPA, CMP ####[facility] [id number] [id number]. Rosa Tran EGFR-NON AF BAHRAINI >60 Normal >=60 The [facility] Comment on above: Performed By: #### A MY, LIPA, CMP ####[facility] [address] [place], [place] [address]Dr. Rosa Tran Globulin (S) [Mass/Vol] 2.4 g/dL Normal The [facility] Comment on above: Performed By: #### A MY, LIPA, CMP ####[facility] [id number] [place] [address]Dr. Rosa Tran Glucose [Mass/Vol] 109 mg/dL Critically high 74-106 The [facility] Comment on above: Performed By: #### A MY, LIPA, CMP ####[facility] [id number] [place], [place] [address]Dr. Rosa Tran Potassium [Moles/Vol] 3.5 mmol/L Normal 3.5-5.1 The [facility] Comment on above: Performed By: #### A MY, LIPA, CMP ####[facility] [id number] [place], [place] [address]Dr. Rosa Tran Protein [Mass/Vol] 5.7 g/dL Critically low 6.4-8.2 The [facility] Comment on above: Performed By: #### A MY, LIPA, CMP ####[facility] [id number] [place] [address]Dr. Rosa Tran Sodium [Moles/Vol] 142 mmol/L Normal 136-145 [facility] Comment on above: Performed By: #### A CARMEN LIPA, CMP ####[facility] [id number] [address]Dr. Rosa Tran Urea nitrogen [Mass/Vol] 9.0 mg/dL Normal 7.0-18.0 [facility] Comment on above: Performed By: #### A MY LIPA, CMP ####[facility] [id number] [place] [address]DrArgelia Tran Urea nitrogen/Creatini ne [Mass ratio] 13.2 mg/mg Normal [facility] Comment on above: Performed By: #### A ADRIANO MORALES, CMP ####[facility] [id number] [address]DrArgelia Tran CBC AUTO DIFFon 08-12-2022 BASO # 0.0 103/ul Normal 0.0-0.1 [facility] Comment on above: Performed By: #### C VDTB #### [facility] Laboratory [address] [place] [address] Dr. Rosa Tran Basophils/100 WBC (Bld) 0.3 % Normal 0.2-2.0 [facility] Comment on above: Performed By: #### C VDTBH #### [facility] Laboratory [address] [place] [address] Dr. Rosa Tran EO # 0.0 103/ul Normal 0.0-0.7 The [facility] Comment on above: Performed By: #### C VDTBH #### [facility] Laboratory [address] [place] [address] Dr. Rosa Tran Eosinophils/100 WBC (Bld) 0.0 % Critically low 0.9-7.0 The [facility] Comment on above: Performed By: #### C VDTBH #### [facility] Laboratory [address] [place] [address] Dr. Rosa Tran Erythrocyte distribution width (RBC) [Ratio] 13.0 % Normal 11.0-15.0 [facility] Comment on above: Performed By: #### C VDTBH #### [facility] Laboratory [address] [place] [address] Dr. Rosa Tran Hematocrit (Bld) [Volume fraction] 36.9 % Critically low 42.0-54.0 [facility] Comment on above: Performed By: #### C VDTBH #### [facility] Laboratory [address] [place] [address] Dr. Rosa Tran Hemoglobin (Bld) [Mass/Vol] 12.9 g/dL Critically low 14.0-18.0 [facility] Comment on above: Performed By: #### C VDTBH #### [facility] Laboratory [address] [place] [address] Dr. Rosa Tran IG # 0.04 10e3/ul Critically high 0.00-0.03 [facility] Comment on above: Performed By: #### C VDTBH #### [facility] Laboratory [address] [place] [address] Dr. Rosa Tran IG % 0.3 % Normal 0.0-0.5 [facility] Comment on above: Performed By: #### C VDTBH #### [facility] Laboratory [address] [place] [address] Dr. Rosa Tran LYMPH # 1.4 103/ul Normal 1.2-3.8 [facility] Comment on above: Performed By: #### C VDTBH #### [facility] Laboratory [address] [place] [address] Dr. Rosa Tran Lymphocytes/100 WBC (Bld) 11.4 % Critically low 20.5-60.0 [facility] Comment on above: Performed By: #### C VDTBH #### [facility] Laboratory [address] [place] [address] Dr. Rosa Tran MANUAL DIFF REQ NO Normal The [facility] Comment on above: Performed By: #### C VDTBH #### [facility] Laboratory [address] [place] [address] Dr. Rosa Tran MCH (RBC) [Entitic mass] 30.8 pg Normal 25.9-34.0 [facility] Comment on above: Performed By: #### C VDTBH #### [facility] Laboratory [address] [place] [address] Dr. Rosa Tran MCHC (RBC) [Mass/Vol] 35.0 g/dL Normal 29.9-35.2 The [facility] Comment on above: Performed By: #### C VDTBH #### [facility] Laboratory [address] [place] [address] Dr. Rosa Tran MCV (RBC) [Entitic vol] 88.1 fL Normal 80.0-94.0 The [facility] Comment on above: Performed By: #### C VDTBH #### [facility] Laboratory [address] [place] [address] Dr. Rosa Tran MONO # 0.3 103/ul Normal 0.3-0.8 [facility] Comment on above: Performed By: #### C VDTBH #### [facility] Laboratory [address] [place] [address] Dr. Rosa Tran Monocytes/100 WBC (Bld) 2.7 % Normal 1.7-12.0 [facility] Comment on above: Performed By: #### C VDTBH #### [facility] Laboratory [address] [place] [address] Dr. Rosa Tran NEUT # 10.1 103/ul Critically high 1.4-6.5 [facility] Comment on above: Performed By: #### C VDTBH #### [facility] Laboratory [address] [place] [address] Dr. Rosa Tran Neutrophils/100 WBC (Bld) 85.3 % Critically high 43.0-75.0 [facility] Comment on above: Performed By: #### C VDTBH #### [facility] Laboratory [address] [place] [address] Dr. Rosa Tran Platelet mean volume (Bld) [Entitic vol] 10.2 fL Normal 9.5-13.5 The [facility] Comment on above: Performed By: #### C VDTBH #### [facility] Laboratory [address] [place] [address] Dr. Rosa Tran PLT 248 103/ul Normal 150-450 The [facility] Comment on above: Performed By: #### C VDTBH #### [facility] Laboratory [address] [place], [place] [address] Dr. Rosa Tran RBC 4.19 106/ul Critically low 4.70-6.10 [facility] Comment on above: Performed By: #### C VDTBH #### [facility] Laboratory [address] [place], [place] [address] Dr. Rosa Tran WBC 11.8 103/ul Critically high 4.0-11.0 [facility] Comment on above: Performed By: #### C VDTBH #### [facility] Laboratory [address] [place], [place] [address] Dr. Rosa Tran CTA ABD/PELVIS WO W [...] for this test is supported by the Radiation Officer of Health and Human Service's declaration that [...] [facility] [address] [place] [address] Dr. Rosa Tran DRUG SCREEN RAPID (URINE)on 08-12-2022 AMP Negative Normal NEGATIVE The [facility] Comment on above: Performed By: #### D RUGRPD #### [facility] Laboratory [address] [address] [address] Rosa Tran BAR Negative Normal NEGATIVE The [facility] Comment on above: Performed By: #### D RUGRPD #### [facility] Laboratory [address] [address] [address] Rosa Tran BUP Negative Normal NEGATIVE The [facility] Comment on above: Performed By: #### D RUGRPD #### [facility] Laboratory [address] [address] [address] Rosa Tran BZO Negative Normal NEGATIVE The [facility] Comment on above: Performed By: #### D RUGRPD #### [facility] Laboratory [address] [address] [address] Rosa Tran JOSE LUIS Negative Normal NEGATIVE The [facility] Comment on above: Performed By: #### D RUGRPD #### [facility] Laboratory [address] [place] [address] Dr. Rosa Tran CUT-OFFS SEE BELOW Normal [facility] Comment on above: Result Comment: AMP (Amphetamine): [...] [facility] Laboratory [address] [place] [address] Dr. Rosa Tran DRUG CUT HEADER DRUG CLASS TEST SYST EM CUT-OFF CONCENTRATIONS ARE FOLLOWS: Normal The [facility] Comment on above: Performed By: #### D RUGRPD #### [facility] Laboratory [address] [place] [address] Dr. Rosa Tran mAMP Negative Normal NEGATIVE The [facility] Comment on above: Performed By: #### D RUGRPD #### [facility] Laboratory [address] [place] [address] Dr. Rosa Tran MTD Negative Normal NEGATIVE The [facility] Comment on above: Performed By: #### D RUGRPD #### [facility] Laboratory [address] [place] [address] Dr. Rosa Tran OPI Negative Normal NEGATIVE The [facility] Comment on above: Performed By: #### D RUGRPD #### [facility] Laboratory [address] [place] [address] Dr. Rosa Tran OXY Negative Normal NEGATIVE The [facility] Comment on above: Performed By: #### D RUGRPD #### [facility] Laboratory [address] [address] [address] Rosa Tran PCP Negative Normal NEGATIVE The [facility] Comment on above: Performed By: #### D RUGRPD #### [facility] Laboratory [address] [place] [address] Dr. Rosa Tran PPX Negative Normal NEGATIVE The [facility] Comment on above: Performed By: #### D RUGRPD #### [facility] Laboratory [address] [address] [address] Rosa Tran TCA Positive Abnormal NEGATIVE The [facility] Comment on above: Performed By: #### D RUGRPD #### [facility] Laboratory [address] [place] [address] Dr. Rosa Tran THC Positive Abnormal NEGATIVE The [facility] Comment on above: Performed By: #### D RUGRPD #### [facility] Laboratory [address] [place] [address] Dr. Rosa Tran LACTATE/LACTIC ACIDon 2022 Lactate [Moles/Vol] 1.1 mmol/L Normal 0.4-1.9 [facility] Comment on above: Performed By: #### L ACT ####[facility] [id number] [address]Dr. Rosa Tran LIPASEon 08-12-2022 Lipase [Catalytic activity/Vol] 55.0 U/L Critically low 73.0-393.0 The [facility] Comment on above: Performed By: #### C VDTBH #### [facility] Laboratory [address] [place] [address] Dr. Rosa Tran PROF 14(COMP METB)on 023 Albumin [Mass/Vol] 4.0 g/dL Normal 3.4-5.0 [facility] Comment on above: Performed By: #### C VDTBH #### [facility] Laboratory [address] [place] [address] Dr. Rosa Tran Albumin/Globulin [Mass ratio] 1.3 {ratio} Normal The [facility] Comment on above: Performed By: #### C VDTBH #### [facility] Laboratory [address] [place] [address] Dr. Rosa Tran ALP [Catalytic activity/Vol] 94 U/L Normal 46-116 [facility] Comment on above: Performed By: #### C VDTBH #### [facility] Laboratory [address] [place] [address] Dr. Rosa Tran ALT [Catalytic activity/Vol] 32 U/L Normal 16-63 The [facility] Comment on above: Performed By: #### C VDTBH #### [facility] Laboratory [address] [address] [address] Rosa Tran Anion gap [Moles/Vol] 12.2 mmol/L Normal [facility] Comment on above: Performed By: #### C VDTBH #### [facility] Laboratory [address] [place] [address] Dr. Rosa Tran AST [Catalytic activity/Vol] 23 U/L Normal 15-37 [facility] Comment on above: Performed By: #### C VDTBH #### [facility] Laboratory [address] [place] [address] Dr. Rosa Tran Bilirubin [Mass/Vol] 0.5 mg/dL Normal 0.2-1.0 [facility] Comment on above: Performed By: #### C VDTBH #### [facility] Laboratory [address] [place] [address] Dr. Rosa Tran Calcium [Mass/Vol] 9.4 mg/dL Normal 8.5-10.1 The [facility] Comment on above: Performed By: #### C VDTBH #### [facility] Laboratory [address] [place] [address] Dr. Rosa Tran Chloride [Moles/Vol] 106 mmol/L Normal 98-107 The [facility] Comment on above: Performed By: #### C VDTBH #### [facility] Laboratory [address] [place] [address] Dr. Rosa Tran CO2 [Moles/Vol] 25.3 mmol/L Normal 21.0-32.0 [facility] Comment on above: Performed By: #### C VDTBH #### [facility] Laboratory [address] [address] [address] Rosa Tran Creatinine [Mass/Vol] 0.76 mg/dL Normal 0.70-1.30 The [facility] Comment on above: Performed By: #### C VDTBH #### [facility] Laboratory [address] [address] [address] Rosa Tran EGFR-AF BAHRAINI >60 Normal >=60 [facility] Comment on above: Performed By: #### C VDTBH #### [facility] Laboratory [address] [address] [address] Rosa Tran EGFR-NON AF BAHRAINI >60 Normal >=60 The [facility] Comment on above: Performed By: #### C VDTBH #### [facility] Laboratory [address] [place] [address] Dr. Rosa Tran Globulin (S) [Mass/Vol] 3.0 g/dL Normal The [facility] Comment on above: Performed By: #### C VDTBH #### [facility] Laboratory [address] [place] [address] Dr. Rosa Tran Glucose [Mass/Vol] 129 mg/dL Critically high 74-106 The [facility] Comment on above: Performed By: #### C VDTBH #### [facility] Laboratory [address] [place] [address] Dr. Rosa Tran Potassium [Moles/Vol] 3.5 mmol/L Normal 3.5-5.1 The [facility] Comment on above: Performed By: #### C VDTBH #### [facility] Laboratory [address] [place] [address] Dr. Rosa Tran Protein [Mass/Vol] 7.0 g/dL Normal 6.4-8.2 The [facility] Comment on above: Performed By: #### C VDTBH #### [facility] Laboratory [address] [place] [address] Dr. Rosa Tran Sodium [Moles/Vol] 140 mmol/L Normal 136-145 The [facility] Comment on above: Performed By: #### C VDTBH #### [facility] Laboratory [address] [place] [address] Dr. Rosa Tran Urea nitrogen [Mass/Vol] 11.0 mg/dL Normal 7.0-18.0 [facility] Comment on above: Performed By: #### C VDTBH #### [facility] Laboratory [address] [place] [address] Dr. Rosa Tran Urea nitrogen/Creatini ne [Mass ratio] 14.5 mg/mg Normal [facility] Comment on above: Performed By: #### C VDTBH #### [facility] Laboratory [address] [place] [address] Dr. Rosa Tran AMYLASEon 08-11-2022 Amylase [Catalytic activity/Vol] 67 U/L Normal 25-115 The [facility] Comment on above: Performed By: #### C VDTBH #### [facility] Laboratory [address] [place] [address] Dr. Rosa Tran CBC AUTO DIFFon 08-11-2022 BASO # 0.1 103/ul Normal 0.0-0.1 [facility] Comment on above: Performed By: #### C VDTBH #### [facility] Laboratory [address] [place] [address] Dr. Rosa Tran Basophils/100 WBC (Bld) 0.4 % Normal 0.2-2.0 [facility] Comment on above: Performed By: #### C VDTBH #### [facility] Laboratory [address] [place] [address] Dr. Rosa Tran EO # 0.1 103/ul Normal 0.0-0.7 The [facility] Comment on above: Performed By: #### C VDTBH #### [facility] Laboratory [address] [place] [address] Dr. Rosa Tran Eosinophils/100 WBC (Bld) 0.6 % Critically low 0.9-7.0 The [facility] Comment on above: Performed By: #### C VDTBH #### [facility] Laboratory [address] [place] [address] Dr. Rosa Tran Erythrocyte distribution width (RBC) [Ratio] 12.9 % Normal 11.0-15.0 [facility] Comment on above: Performed By: #### C VDTBH #### [facility] Laboratory [address] [place] [address] Dr. Rosa Tran Hematocrit (Bld) [Volume fraction] 38.4 % Critically low 42.0-54.0 [facility] Comment on above: Performed By: #### C VDTBH #### [facility] Laboratory [address] [place] [address] Dr. Rosa Tran Hemoglobin (Bld) [Mass/Vol] 13.1 g/dL Critically low 14.0-18.0 [facility] Comment on above: Performed By: #### C VDTBH #### [facility] Laboratory [address] [place] [address] Dr. Rosa Tran IG # 0.05 10e3/ul Critically high 0.00-0.03 [facility] Comment on above: Performed By: #### C VDTBH #### [facility] Laboratory [address] [place] [address] Dr. Rosa Tran IG % 0.4 % Normal 0.0-0.5 [facility] Comment on above: Performed By: #### C VDTBH #### [facility] Laboratory [address] [place] [address] Dr. Rosa Tran LYMPH # 1.6 103/ul Normal 1.2-3.8 [facility] Comment on above: Performed By: #### C VDTBH #### [facility] Laboratory [address] [place] [address] Dr. Rosa Tran Lymphocytes/100 WBC (Bld) 12.2 % Critically low 20.5-60.0 [facility] Comment on above: Performed By: #### C VDTBH #### [facility] Laboratory [address] [place] [address] Dr. Rosa Tran MCH (RBC) [Entitic mass] 30.3 pg Normal 25.9-34.0 [facility] Comment on above: Performed By: #### C VDTBH #### [facility] Laboratory [address] [place] [address] Dr. Rosa Tran MCHC (RBC) [Mass/Vol] 34.1 g/dL Normal 29.9-35.2 The [facility] Comment on above: Performed By: #### C VDTBH #### [facility] Laboratory [address] [place] [address] Dr. Rosa Tran MCV (RBC) [Entitic vol] 88.9 fL Normal 80.0-94.0 The [facility] Comment on above: Performed By: #### C VDTBH #### [facility] Laboratory [address] [place] [address] Dr. Rosa Tran MONO # 0.6 103/ul Normal 0.3-0.8 The [facility] Comment on above: Performed By: #### C VDTBH #### [facility] Laboratory [address] [place] [address] Dr. Rosa Tran Monocytes/100 WBC (Bld) 4.6 % Normal 1.7-12.0 [facility] Comment on above: Performed By: #### C VDTBH #### [facility] Laboratory [address] [place] [address] Dr. Rosa Tran NEUT # 11.0 103/ul Critically high 1.4-6.5 [facility] Comment on above: Performed By: #### C VDTBH #### [facility] Laboratory [address] [place] [address] Dr. Rosa Tran Neutrophils/100 WBC (Bld) 81.8 % Critically high 43.0-75.0 [facility] Comment on above: Performed By: #### C VDTBH #### [facility] Laboratory [address] [place] [address] Dr. Rosa Tran Platelet mean volume (Bld) [Entitic vol] 10.0 fL Normal 9.5-13.5 The [facility] Comment on above: Performed By: #### C VDTBH #### [facility] [facility] [address] [place] [address] Dr. Rosa Tran PLT 226 103/ul Normal 150-450 The [facility] Comment on above: Performed By: #### C VDTBH #### [facility] [address] [place] [address] Dr. Rosa Tran RBC 4.32 106/ul Critically low 4.70-6.10 The [facility] Comment on above: Performed By: #### C VDTB #### [facility] [address] [address] [address] Rosa Tran WBC 13.4 103/ul Critically high 4.0-11.0 The [facility] Comment on above: Performed By: #### C VDTB #### [facility] [address] [address] [address] ABD/PELV W CONon [...] for this test is supported by the Radiation Officer of Health and Human Service's declaration that [...] [facility] [address] [place] [address] Dr. Rosa Tran LACTATE/LACTIC ACIDon 2022 Lactate [Moles/Vol] 0.5 mmol/L Normal 0.4-1.9 The [facility] Comment on above: Performed By: #### C VDTBH #### [facility] [address] [place] [address] Dr. Rosa Tran LIPASEon 08-11-2022 Lipase [Catalytic activity/Vol] 73.0 U/L Normal 73.0-393.0 The [facility] Comment on above: Performed By: #### C VDTBH #### [facility] [address] [place] [address] Dr. Rosa Tran PROF 14(COMP METB)on 023 Albumin [Mass/Vol] 3.9 g/dL Normal 3.4-5.0 The [facility] Comment on above: Performed By: #### C VDTBH #### [facility] [address] [place] [address] Dr. Rosa Tran ALP [Catalytic activity/Vol] 91 U/L Normal 46-116 The [facility] Comment on above: Performed By: #### C VDTBH #### [facility] [address] [address] [address] Rosa Tran ALT [Catalytic activity/Vol] 34 U/L Normal 16-63 The [facility] Comment on above: Performed By: #### C VDTBH #### [facility] [address] [address] [address] Rosa Tran Anion gap [Moles/Vol] 12.6 mmol/L Normal [facility] Comment on above: Performed By: #### C VDTBH #### [facility] [address] [address] [address] Rosa Tran AST [Catalytic activity/Vol] 20 U/L Normal 15-37 The [facility] Comment on above: Performed By: #### C VDTBH #### [facility] [address] [place] [address] Dr. Rosa Tran Bilirubin [Mass/Vol] 0.3 mg/dL Normal 0.2-1.0 The [facility] Comment on above: Performed By: #### C VDTBH #### [facility] [address] [place] [address] Dr. Rosa Tran Calcium [Mass/Vol] 9.0 mg/dL Normal 8.5-10.1 The [facility] Comment on above: Performed By: #### C VDTBH #### [facility] [address] [place] [address] Dr. Rosa Tran Chloride [Moles/Vol] 105 mmol/L Normal 98-107 The [facility] Comment on above: Performed By: #### C VDTBH #### [facility] [address] [address] [address] Rosa Tran CO2 [Moles/Vol] 26.9 mmol/L Normal 21.0-32.0 The [facility] Comment on above: Performed By: #### C VDTBH #### [facility] [address] [place] [address] Dr. Rosa Tran Creatinine [Mass/Vol] 0.72 mg/dL Normal 0.70-1.30 The [facility] Comment on above: Performed By: #### C VDTBH #### [facility] [address] [address] [address] Rosa Tran Globulin (S) [Mass/Vol] 2.9 g/dL Normal [facility] Comment on above: Performed By: #### C VDTBH #### [facility] [address] [address] [address] Rosa Tran Glucose [Mass/Vol] 125 mg/dL Critically high 74-106 [facility] Comment on above: Performed By: #### C VDTBH #### [facility] [address] [address] [address] Rosa Tran Protein [Mass/Vol] 6.8 g/dL Normal 6.4-8.2 [facility] Comment on above: Performed By: #### C VDTBH #### [facility] [address] [address] [address] Rosa Tran Sodium [Moles/Vol] 141 mmol/L Normal 136-145 [facility] Comment on above: Performed By: #### C VDTBH #### [facility] [address] [address] [address] Rosa Tran Urea nitrogen/Creatini ne [Mass ratio] 15.3 mg/mg Normal [facility] Comment on above: Performed By: #### C VDTBH #### [facility] [address] [address] [address] Rosa Feliciano 04-09-2021 [facility] Office Visit (GENBMI ) ----- TIM CASTELLON ([id number]) 1990 M Date Time Provider Department 04/09/21 [...] vein a (more content not included)... Normal [facility] Kaycee 04-09-2021 [facility] Telephone (GENN) ----- CHINTANJORDYTIM E ([id number]) 1990 Date Time Provider Department 04/09/21 MELANI BRANCH During your visit today, we recorded the following information about you: Melani rBanch RN 04/09/2021 10:40 AM Signed Shayla GUADARRAMA [...] Status:Closed by MELANI BRANCH on 04/09/21 Normal [facility] Encounters Encounter Date Encounter Type [...] Facility:[facility] Payers Date Payer Category Payer Unknown [id number] 2.16.84 [id number] 1990 Unknown [id number] 2.16.84 [id number] 1990 Unknown [id number] 2.16.84 [id number] 1990 Unknown [id number] 2.16.84 [id number] 1990 Unknown [id number] 2.16.84 [id number] 1990 Unknown [id number] 2.16.84 [id number] 1959 Unknown [id number] Progress note 04-09-2021 Note Date & Type Note Facility 04-09-2021 Note HNO ID: [id number] Author: Naun Rodrigues PA-C Service: ? Author Type: Physician Space Buyer Type: Progress Notes Filed: 05/21/2021 8:57 AM [...] 09, 2021 TIME: 2:24 PM PAGER/CONTACT #: [facility] Progress note 04-09-2021 Note Date & Type Note Facility 04-09-2021 Note HNO ID: [id number] Author: Karma Isabel MD Service: ? Author [...] 09, 2021 TIME: 2:16 PM PAGER/CONTACT #: [facility] Summary Purpose Family History No Family History Records FoundNo Family History Records Found Advance Directives No Advanced Directives Records FoundNo Advanced Directives Records Found Additional Source Comments (unrecognized sect ion and content) No Status Records FoundNo Status Records Found INFORMATION SOURCE (unrecogn ized section and content) DATE CREATED AUTHOR 08/07/2021 [facility] DATE CREATED AUTHOR AUTHOR'S ORGANIZ [...] BE BASED ON THE PRIMARY CLINICAL RECORDS. [employer] [facility]. provides no warranty or guarantee of the accuracy or completeness of information in this document.
[2024-08-27] MEDS: KETOROLAC TROMETHAMINE 30 MG/ML VIAL 15 MG IVP (09:13)
[2024-08-27] MEDS: DIPHENHYDRAMINE HCL 50 MG/ML VIAL 25 MG IVP (09:13)
[2024-08-27] MEDS: PROCHLORPERAZINE 10 MG/2 ML VIAL IV (09:14)
[2024-08-27] MEDS: FAMOTIDINE/PF 20 MG/2 ML VIAL IV (09:14)
[2024-08-27 09:18] LABS: Basophils Absolute Auto 0.1 10^3/uL (0.0-0.1); Basophils Percent Auto 0.6 % (0.2-2.0); Eosinophils Percent Auto 0.4 % (0.9-7.0); Hematocrit 42.4 % (42.0-54.0); Hemoglobin 14.9 g/dL (14.0-18.0); Immature Granulocytes Abs Auto 0.02 10^3/uL (0.00-0.03); Immature Granulocytes Pct Auto 0.2 % (0.0-0.5); Lymphocytes Absolute Auto 1.3 10^3/uL (1.2-3.8); Lymphocytes Percent Auto 13.9 % (20.5-60.0); Mean Corpuscular HGB Conc 35.1 g/dL (29.9-35.2); Mean Corpuscular Hemoglobin 30.7 pg (25.9-34.0); Mean Corpuscular Volume 87.4 fL (80.0-94.0); Mean Platelet Volume 9.4 fL (9.5-13.5); Monocytes Absolute Auto 0.7 10^3/uL (0.3-0.8); Monocytes Percent Auto 7.6 % (1.7-12.0); Neutrophils Percent Auto 77.3 % (43.0-75.0); Platelet Count 281 10^3/uL (150-450); Red Blood Count 4.85 10^6/uL (4.70-6.10)
[2024-08-27 09:28] LABS: Influenza Virus A Antigen Negative; Influenza Virus B Antigen Negative; Internal Control Within Normal Limits
[2024-08-27 09:39] LABS: Alanine Aminotransferase 41 U/L (16-63); Albumin Globulin Ratio 1.3; Albumin Level 4.4 g/dL (3.4-5.0); Alkaline Phosphatase 99 U/L (46-116); Anion Gap 17.8; Aspartate Amino Transferase 26 U/L (15-37); BUN Creatinine Ratio 12.7; Bilirubin Total 0.7 mg/dL (0.2-1.0); Carbon Dioxide 21.1 mmol/L (21.0-32.0); Chloride 103 mmol/L (98-107); Estimated GFR (African America >60 (>=60 mL/min/1.73m^2); Estimated GFR (Non-African Ame >60 (>=60 mL/min/1.73m^2); Globulin 3.4 g/dL; Glucose 120 mg/dL (74-106); Potassium 3.9 mmol/L (3.5-5.1); Sodium 138 mmol/L (136-145); Total Protein 7.8 g/dL (6.4-8.2)
--- NOTE | 2024-08-27 10:59 | ED_ITS ---
HPI HPI - General Adult General Chief complaint: Abdominal Pain Stated complaint: ABDOMINAL PAIN Time Seen by Provider: 08/27/24 08:52 Source: patient Mode of arrival: walk-in Limitations: no limitations History of Present Illness HPI narrative: Patient was evaluated in the ER multiple times for cyclic vomiting is coming to the ER with nausea vomiting that started this morning. The patient is complaining of some pain although he did not specify where that pain is. He mentioned that it is because of his inflammation that he is finding it hard to explain Related Data Home Medications ?Medication ?Instructions ?Recorded ?Confirmed amitriptyline 50 mg tablet 50 mg PO BEDTIME 03/13/23 03/26/24 Previous Rx's ?Medication ?Instructions ?Recorded ondansetron 4 mg disintegrating 4 mg PO Q6H PRN nausea and 03/27/24 tablet vomiting #30 tabs Allergies Allergy/AdvReac Type Severity Reaction Status Date / Time No Known Drug Allergies Allergy Verified 08/27/24 08:48 Opioid HPI Opioid Management Most Recent Opioid Data: Last Pain Scale 9 08/27/24 08:52 08/27/24 Last ORT Total Score 5 03/26/24 07:51 03/26/24 Last ORT Risk Category Moderate Risk 03/26/24 07:51 03/26/24 Ur Phencyclidine Scrn Negative (NEGATIVE) 04/12/23 17:15 04/02 07/25 Review of Systems ROS Status of ROS 10 or more systems reviewed and unremark able except as noted in history and below PFSH PFSH Medical History (Updated 04/01/24 @ 00:00 by ) Cyclic vomiting syndrome ?R11.15 - Cyclical vomiting syndrome unrelated to migraine (ICD-10) Vomiting ?R11.10 - Vomiting, unspecified (ICD-10) Cannabinoid hyperemesis syndrome ?R11.2 - Nausea with vomiting, unspecified (ICD-10) ?F12.90 - Cannabis use, unspecified, uncomplicated (ICD-10) Superior mesenteric artery syndrome ?K55.1 - Chronic vascular disorders of intestine (ICD-10) Cyclic vomiting syndrome ?R11.15 - Cyclical vomiting syndrome unrelated to migraine (ICD-10) Constipation ?K59.00 - Constipation, unspecified (ICD-10) Abdominal pain ?R10.9 - Unspecified abdominal pain (ICD-10) Social History (Updated 04/13/23 @ 09:13 by Dariela Small) Within the past year, how often did you have a drink containing alcohol: never Score interpretation: A score less than 4 is consistent with normal alcohol consumption. Smoking status: Current every day smoker Non-prescribed substance use: cannabis (any form) Previous occupational history: [employer] Highest level of school completed/degree received: 10th grade Little interest or pleasure in doing things: not at all Feeling down, depressed, or hopeless: not at all Feel stressed/tense/nervous/anxious/difficulty sleeping: not at all Gender Identity: male Exam Narrative Exam Narrative: Nurses notes and vital signs reviewed and patient is not hypoxic. General: Well-appearing and in no apparent distress. Skin: Warm, dry, no pallor noted. No rash. Head: Normocephalic, atraumatic. Neck: Supple, non-tender. Eye: Pupils are equal, round and EOMI. No scleral icterus. Ears, Nose, Mouth, and Throat: TM are clear, no nasal mucosal hypertrophy. Oral mucosa is moist, no posterior oropharynx erythema, uvula is mid-line Cardiovascular: Regular Rate and Rhythm without murmur, gallop or rub. Respiratory: No accessory muscle use or respiratory distress. Lungs are clear to auscultation, no wheezing, rales or rhonchi Chest Wall: no tenderness Back: No midline thoracic or lumbar vertebral tenderness. No CVA tenderness Musculoskeletal: normal ROM, no calf or popliteal tenderness, no lower extremity edema/swelling GI: Abdomen is soft, non-distended. Normal bowel sounds. No masses appreciated. No tenderness to palpation. No rebound, guarding, or rigidity noted. Neurological: A&O x4. No cranial nerve dysfunction observed. Constitutional Vital Signs, click to edit/add: Last Vital Signs Temp 98.1 F 08/27/24 08:48 Pulse 89 08/27/24 08:48 Resp 18 08/27/24 08:48 BP 133/86 08/27/24 08:48 Pulse Ox 95 08/27/24 08:48 O2 Del Method Room Air 08/27/24 08:48 Course Vital Signs Vital signs: Vital Signs Temperature 98.1 F 08/27/24 08:48 Pulse Rate 89 08/27/24 08:48 Respiratory Rate 18 08/27/24 08:48 Blood Pressure 133/86 08/27/24 08:48 Pulse Oximetry 95 08/27/24 08:48 Oxygen Delivery Method Room Air 08/27/24 08:48 Temperature 98.1 F 08/27/24 08:48 Pulse Rate 89 08/27/24 08:48 Respiratory Rate 18 08/27/24 08:48 Blood Pressure 133/86 08/27/24 08:48 Pulse Oximetry 95 08/27/24 08:48 Oxygen Delivery Method Room Air 08/27/24 08:48 Medical Decision Making MDM Narrative Medical decision making narrative: The patient CBC and chemistry showed no acute pathology and initially his abdomen examination also was benign He was provided with supportive care with Toradol, Phenergan and Pepcid to control his nausea and vomiting The patient yet was asking for pain for medication, I did explain to the bedside after reviewing his medication and his previous presentation I ordered a CAT scan awaiting to evaluate more the pain and also added Haldol But the patient signed AMA and left because he wants pain medication Patient is leaving knowing that he will be putting himself at risk by not having full diagnosis although the patient did have a history previously of cyclic vomiting and he is not convinced that this presentation secondary to marijuana Lab Data Labs: Lab Results 08/27/24 08/27/24 Range/Units 09:10 09:12 WBC 9.0 (4.0-11.0) 10^3/uL RBC 4.85 (4.70-6.10) 10^6/uL Hgb 14.9 (14.0-18.0) g/dL Hct 42.4 (42.0-54.0) % MCV 87.4 (80.0-94.0) fL MCH 30.7 (25.9-34.0) pg MCHC 35.1 (29.9-35.2) g/dL RDW 13.0 (11.0-15.0) % Plt Count 281 (150-450) 10^3/uL MPV 9.4 L (9.5-13.5) fL Neut % (Auto) 77.3 H (43.0-75.0) % Lymph % (Auto) 13.9 L (20.5-60.0) % Caldwell % (Auto) 7.6 (1.7-12.0) % Eos % (Auto) 0.4 L (0.9-7.0) % Baso % (Auto) 0.6 (0.2-2.0) % Neut # (Auto) 7.0 H (1.4-6.5) 10^3/uL Lymph # (Auto) 1.3 (1.2-3.8) 10^3/uL Caldwell # (Auto) 0.7 (0.3-0.8) 10^3/uL Eos # (Auto) 0.0 (0.0-0.7) 10^3/uL Baso # (Auto) 0.1 (0.0-0.1) 10^3/uL Abs Immat Gran (auto) 0.02 (0.00-0.03) 10^3/uL Imm/Tot Granulo (auto) 0.2 (0.0-0.5) % Sodium 138 (136-145) mmol/L Potassium 3.9 (3.5-5.1) mmol/L Chloride 103 (98-107) mmol/L Carbon Dioxide 21.1 (21.0-32.0) mmol/L Anion Gap 17.8 BUN 13.0 (7.0-18.0) mg/dL Creatinine 1.02 (0.70-1.30) mg/dL Est GFR ( Amer) >60 (>=60 mL/min/1.73m^2) Est GFR (Non-Af Amer) >60 (>=60 mL/min/1.73m^2) BUN/Creatinine Ratio 12.7 Glucose 120 H (74-106) mg/dL Calcium 10.0 (8.5-10.1) mg/dL Total Bilirubin 0.7 (0.2-1.0) mg/dL AST 26 (15-37) U/L ALT 41 (16-63) U/L Alkaline Phosphatase 99 (46-116) U/L Total Protein 7.8 (6.4-8.2) g/dL Albumin 4.4 (3.4-5.0) g/dL Globulin 3.4 g/dL Albumin/Globulin Ratio 1.3 Lipase 30.0 (16.0-77.0) U/L Influenza Type A Ag Negative Influenza Type B Ag Negative Discharge Plan Discharge Stand Alone Forms: Portal Instructions Chief Complaint: Abdominal Pain Patient Disposition: Left Against Medical Advice Mode of Transportation: Private Vehicle Prescriptions / Home Meds: No Action amitriptyline 50 mg tablet 50 mg PO BEDTIME ondansetron 4 mg tablet,disintegrating 4 mg PO Q6H PRN (Reason: nausea and vomiting) Qty: 30 7RF Print Language: Nigerian Referrals: TITUS HILARIO [Primary Care Provider] - 1 week Discharge Date/Time: 08/27/24 11:02
== END 2024-08-27 11:02 | disposition left against medical advice (07) ==
PROVIDERS: Emergency Provider Emergency Medicine; PCP Nurse Practitioner Family
DX: R11.2 Nausea with vomiting, unspecified (principal); Z53.29 Procedure and treatment not carried out because of patient's decision for other reasons; F17.200 Nicotine dependence, unspecified, uncomplicated
CPT/HCPCS: 36415; 80053; 83690; 85025; 87804; 96374; 96375; 99284; J0780; J1200; J1885; J3490

== ENCOUNTER 2024-08-30 08:54 | Emergency (ER) | payer SELFPAY ==
[2024-08-30 08:58] VITALS: BP 130/95; PULSE 78; TEMP 36.8; O2SAT 95; BMI 51.4
--- NOTE | 2024-08-30 09:11 | ED_ITS ---
HPI HPI - General Adult General Chief complaint: Abdominal Pain Stated complaint: ABDOMINAL PAIN Time Seen by Provider: 08/30/24 09:04 Source: patient Mode of arrival: ambulance Limitations: no limitations History of Present Illness HPI narrative: Patient is a 33-year-old male who is presenting to the ER Chief Complaint: Of midepigastric pain, right upper quadrant pain, abdominal cramping, nausea and vomiting. Patient was in the ER on Monday at [place], patient was in the hospital 2 days ago at [facility]. Patient had CBC with differential, lactate, electrolytes done, no acute abnormalities besides potassium of 3.3. Patient was sent home with prescription for Compazine and Bentyl. This is her third ER visit this week. Patient has been told to stop smoking marijuana in the past but he has not. Patient has no sick contacts. No recent traveling. 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 Patient was here on Monday, chart was reviewed from Dr. Mcfadden. Patient left AGAINST MEDICAL ADVICE on Monday. Patient has not seen a GI physician in the past, patient does have a appointment with a vascular surgeon on September 14 in [place]. Patient has history of superior mesenteric artery syndrome. Patient's lab work showed no significant change on Monday and Monday [facility]. Patient is prescribed amitriptyline and Zofran. Patient's PCP is Dr. Lares. Patient was at home with his parents. Patient was having nausea vomiting. Patient called 911 himself to be brought back to the emergency room for evaluation. No new antibiotics, no sick contacts. Patient still has his gallbladder and appendix. Patient admits to marijuana use occasionally. All systems are negative except as noted/marked. All systems reviewed and otherwise negative. Nurses note and vital signs reviewed and patient is not hypoxic. General: The patient appears well and in no apparent distress. Patient is resting comfortably on cart. Patient is not toxic, lethargic, or listless Skin: Warm, dry, no pallor noted. There is no rash noted. No petechiae, purpura. Head: Normocephalic, atraumatic Eye: Normal conjunctiva, no drainage, EOMI. PERRL Ears, Nose, Mouth, and Throat: oral mucosa is moist. Poor dentition, no atypical facial abnormalities, chronic dental caries. Nares patent. Mouth without vesicles. Cardiovascular: Regular Rate and Rhythm, no murmur, gallop, rub Respiratory: Patient is in no distress, no accessory muscle use, lungs are clear to auscultation, no wheezing, rales or rhonchi Back: non-tender, no CVA tenderness bilaterally to percussion. No CT LS midline pain GI: Mild to moderate midepigastric, right and left upper quadrant tenderness to palpation, mild diffuse periumbilical no tenderness to palpation, no pain to McBurney's point ; no pulsatile masses appreciated. No rebound, guarding, or rigidity noted. No distention Musculoskeletal: Patient has full range of motion of all of the extremities, no motor, sensory, or focal neurological deficits Neurological: A&O x4, normal speech Psychiatric: Cooperative Related Data Home Medications ?Medication ?Instructions ?Recorded ?Confirmed amitriptyline 50 mg tablet 50 mg PO BEDTIME 03/13/23 08/30/24 Previous Rx's ?Medication ?Instructions ?Recorded ondansetron 4 mg disintegrating 4 mg PO Q6H PRN nausea and 03/27/24 tablet vomiting #30 tabs promethazine 25 mg rectal 25 mg VT Q6H PRN nausea and 08/30/24 suppository vomiting #6 ea Allergies Allergy/AdvReac Type Severity Reaction Status Date / Time No Known Drug Allergies Allergy Verified 08/30/24 08:57 Opioid HPI Opioid Management Most Recent Opioid Data: Last Pain Scale 10 08/30/24 09:54 08/30/24 Last ORT Total Score 5 03/26/24 07:51 03/26/24 Last ORT Risk Category Moderate Risk 03/26/24 07:51 03/26/24 Ur Phencyclidine Scrn Negative (NEGATIVE) 08/30/24 09:58 02/02/24 [facility] Medical History (Updated 08/30/24 @ 11:20 by Miguel Vu MD) Cyclic vomiting syndrome ?R11.15 - Cyclical vomiting syndrome unrelated to migraine (ICD-10) Vomiting ?R11.10 - Vomiting, unspecified (ICD-10) Cannabinoid hyperemesis syndrome ?R11.2 - Nausea with vomiting, unspecified (ICD-10) ?F12.90 - Cannabis use, unspecified, uncomplicated (ICD-10) Superior mesenteric artery syndrome ?K55.1 - Chronic vascular disorders of intestine (ICD-10) Cyclic vomiting syndrome ?R11.15 - Cyclical vomiting syndrome unrelated to migraine (ICD-10) Constipation ?K59.00 - Constipation, unspecified (ICD-10) Abdominal pain ?R10.9 - Unspecified abdominal pain (ICD-10) Social History (Updated 04/13/23 @ 09:13 by Dariela Small) Within the past year, how often did you have a drink containing alcohol: never Score interpretation: A score less than 4 is consistent with normal alcohol consumption. Smoking status: Current every day smoker Non-prescribed substance use: cannabis (any form) Previous occupational history: [employer] Highest level of school completed/degree received: 10th grade Little interest or pleasure in doing things: not at all Feeling down, depressed, or hopeless: not at all Feel stressed/tense/nervous/anxious/difficulty sleeping: not at all Gender Identity: male Exam Constitutional Vital Signs, click to edit/add: Last Vital Signs Temp 98.2 F 08/30/24 08:58 Pulse 82 08/30/24 10:50 Resp 16 08/30/24 10:50 BP 140/94 H 08/30/24 10:50 Pulse Ox 97 08/30/24 10:50 O2 Del Method Room Air 08/30/24 10:50 Course Vital Signs Vital signs: Vital Signs Temperature 98.2 F 08/30/24 08:58 Pulse Rate 78 08/30/24 08:58 Respiratory Rate 16 08/30/24 08:58 Blood Pressure 130/95 H 08/30/24 08:58 Pulse Oximetry 95 08/30/24 08:58 Oxygen Delivery Method Room Air 08/30/24 08:58 Temperature 98.2 F 08/30/24 08:58 Pulse Rate 82 08/30/24 10:50 Respiratory Rate 16 08/30/24 10:50 Blood Pressure 140/94 H 08/30/24 10:50 Pulse Oximetry 97 08/30/24 10:50 Oxygen Delivery Method Room Air 08/30/24 10:50 Medical Decision Making MDM Narrative Medical decision making narrative: Patient has IV established, patient was given Toradol, Zofran, Compazine, Pepcid; and 1 L of lactated ringers. after I mention all the medications that I will be giving him to help relieve his symptoms, patient asked me what I am giving him for pain. I repeated the orders that I am giving him, and patient looked at me with a blank stare and did not see anything in addition. There is no acute indication for narcotics initially, patient is not displaying a dilshad gical abdomen 1030 patient nausea has improved minimally, pain has helped somewhat. Patient told Erich GUADARRAMA that he is having acid reflux-like symptoms when he burps. Patient will be given a GI cocktail. Patient will be given additional dose of Valium to help with Nausea, vomiting, and abdominal cramping. No acute indication for admission, however patient has been in the ER 3 times this week. Education on marijuana abuse and cyclic nausea vomiting has been done at bedside. Patient is aware that marijuana could cause cyclic nausea vomiting 7 weeks after patient has stopped smoking. Patient is aware of this. I have paged Dr. Lares to speak to him about patient's 3 ER visits this week. 1[address] I have spoken to Dr. Lares. He is aware of patient's ER visits. He agrees with discharge and will follow-up in the office. No acute new findings on patient's lab test. Patient was given IV fluids and multiple medications to help with his symptoms. However patient very well could be causing his own problems with marijuana abuse and cyclic nausea vomiting. Patient understands I cannot prove that, but patient continues to smoke marijuana, continues to be seen in the ER for intractable nausea, vomiting, pain, gastroparesis. Patient understands he can return back to the ER anytime as her symptoms worsen. Patient understands he must stop smoking marijuana. No question at discharge. Patient was prescribed Compazine and Bentyl from [facility] Lab Data Labs: Lab Results 08/30/24 08/30/24 Range/Units 09:30 09:58 WBC 7.1 (4.0-11.0) 10^3/uL RBC 4.24 L (4.70-6.10) 10^6/uL Hgb 13.3 L (14.0-18.0) g/dL Hct 38.1 L (42.0-54.0) % MCV 89.9 (80.0-94.0) fL MCH 31.4 (25.9-34.0) pg MCHC 34.9 (29.9-35.2) g/dL RDW 13.0 (11.0-15.0) % Plt Count 227 (150-450) 10^3/uL MPV 9.6 (9.5-13.5) fL Neut % (Auto) 69.3 (43.0-75.0) % Lymph % (Auto) 21.5 (20.5-60.0) % [place] % (Auto) 8.6 (1.7-12.0) % Eos % (Auto) 0.1 L (0.9-7.0) % Baso % (Auto) 0.4 (0.2-2.0) % Neut # (Auto) 4.9 (1.4-6.5) 10^3/uL Lymph # (Auto) 1.5 (1.2-3.8) 10^3/uL [place] # (Auto) 0.6 (0.3-0.8) 10^3/uL Eos # (Auto) 0.0 (0.0-0.7) 10^3/uL Baso # (Auto) 0.0 (0.0-0.1) 10^3/uL Abs Immat Gran (auto) 0.01 (0.00-0.03) 10^3/uL Imm/Tot Granulo (auto) 0.1 (0.0-0.5) % Sodium 139 (136-145) mmol/L Potassium 3.7 (3.5-5.1) mmol/L Chloride 103 (98-107) mmol/L Carbon Dioxide 27.2 (21.0-32.0) mmol/L Anion Gap 12.5 BUN 11.0 (7.0-18.0) mg/dL Creatinine 0.75 (0.70-1.30) mg/dL Est GFR ( Amer) >60 (>=60 mL/min/1.73m^2) Est GFR (Non-Af Amer) >60 (>=60 mL/min/1.73m^2) BUN/Creatinine Ratio 14.7 Glucose 115 H (74-106) mg/dL Lactate 1.1 (0.4-2.0) mmol/L Calcium 8.9 (8.5-10.1) mg/dL Total Bilirubin 0.5 (0.2-1.0) mg/dL AST 34 (15-37) U/L ALT 42 (16-63) U/L Alkaline Phosphatase 73 (46-116) U/L Total Protein 6.6 (6.4-8.2) g/dL Albumin 3.8 (3.4-5.0) g/dL Globulin 2.8 g/dL Albumin/Globulin Ratio 1.4 Lipase 25.0 (16.0-77.0) U/L Urine Color Lt. yellow (YELLOW) Urine Clarity Clear (CLEAR) Urine pH 7.5 (5.0-9.0) Ur Specific [place] 1.010 (1.005-1.025) Urine Protein Negative (NEG/TRACE) mg/dL Urine Glucose (UA) Negative (NEGATIVE) mg/dL Urine Ketones Negative (NEGATIVE) mg/dL Urine Occult Blood Negative (NEGATIVE) Urine Nitrite Negative (NEGATIVE) Urine Bilirubin Negative (NEGATIVE) Urine Urobilinogen 0.2 (0.2-1.0) EU/dL Ur Leukocyte Esterase Negative (NEGATIVE) Urine RBC None seen (0-2) #/HPF Urine WBC None seen (NONE SEEN) #/HPF Ur Squamous Epith Cells Rare (NONE/RARE) #/LPF Urine Crystals Seen A (None Seen) #/HPF Amorphous Sediment Moderate Urine Bacteria Moderate A (NONE SEEN) #/HPF Urine Casts None seen (NONE SEEN) #/LPF Urine Mucus None seen (NONE SEEN) Ur Culture Indicated? Yes-[facility] Urine Opiates Screen Negative (NEGATIVE) Ur Buprenorphine Scrn Negative (NEGATIVE) Ur Oxycodone Screen Negative (NEGATIVE) Urine Methadone Screen Negative (NEGATIVE) Ur Barbiturates Screen Negative (NEGATIVE) U Tricyclic Antidepress Positive A (NEGATIVE) Ur Phencyclidine Scrn Negative (NEGATIVE) Ur Amphetamines Screen Negative (NEGATIVE) U Methamphetamines Scrn Negative (NEGATIVE) U Benzodiazepines Scrn Negative (NEGATIVE) Urine Cocaine Screen Negative (NEGATIVE) U Cannabinoids Screen Positive A (NEGATIVE) Discharge Plan Discharge Chief Complaint: Abdominal Pain Clinical Impression: Abdominal pain, Nausea & vomiting, Cyclic vomiting syndrome, Marijuana abuse, Gastritis Patient Disposition: Home, Self-Care Time of Disposition Decision: 11:21 Condition: Fair Prescriptions / Home Meds: New promethazine 25 mg suppository 25 mg VT Q6H PRN (Reason: nausea and vomiting) Qty: 6 0RF No Action amitriptyline 50 mg tablet 50 mg PO BEDTIME ondansetron 4 mg tablet,disintegrating 4 mg PO Q6H PRN (Reason: nausea and vomiting) Qty: 30 7RF Print Language: Upper Sorbian Instructions: Gastritis (ED), GERD (Gastroesophageal Reflux Disease) (ED), Cannabis Use Disorder (ED), Abdominal Pain (ED), Cyclic Vomiting Syndrome (ED) Additional Instructions: Use medication prescribed from [facility] Compazine and Bentyl to help with your symptoms. Phenergan suppository has been prescribed as well to help with your symptoms. Call Dr. Lares today and follow-up in the office next week. Return back to the ER if intractable pain, nausea or vomiting. Stop smoking marijuana. Cyclic nausea vomiting occurs with marijuana abuse. If you stop smoking marijuana, that could still be in your system for 7 weeks. Referrals: TITUS HILARIO [Primary Care Provider] - 1 week
[2024-08-30] MEDS: LACTATED RINGER'S SOLUTION 1,000 ML 1000 ML IV (09:19)
[2024-08-30] MEDS: FAMOTIDINE/PF 20 MG/2 ML VIAL IV (09:19)
[2024-08-30] MEDS: PROCHLORPERAZINE 10 MG/2 ML VIAL IV (09:19)
[2024-08-30] MEDS: KETOROLAC TROMETHAMINE 30 MG/ML VIAL 15 MG IVP (09:19)
[2024-08-30] MEDS: ONDANSETRON PF 4 MG/2 ML VIAL IV (09:19)
--- OUTSIDE RECORDS SUMMARY | 2024-08-30 09:29 | XMS_ITS | CCD ---
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 [facility] Comment on above: Performed By: #### C VDTB #### [facility] [address] [address] [address] Rosa Tran Summary FINAL Normal [facility] Comment on above: Result Comment: TOXASSURE [...] test is not intended to distinguish between qnazy-0-pexdxnakezhpxhmkxnno, the predominant form of THC in most herbal or marijuana-based products, and zoaqv-8-oiowpxeyvcxijnspfnjr. Amitriptyline PRESENT Nortriptyline PRESENT Nortriptyline may be administered as a prescription drug; it is also an expected metabolite of amitriptyline. Acetaminophen PRESENT Diphenhydramine PRESENT Test Result Flag Units Ref Range Creatinine 183 mg/dL >=20 Declared Medications: Medication list was not provided. For clinical consultation, please call . Performed By: #### C VDTBH #### [facility] [address] [place] [address] Dr. Rosa Tran CBC AUTO DIFFon 10-14-2022 BASO # 0.0 103/ul Normal 0.0-0.1 [facility] Comment on above: Performed By: #### C VDTBH #### [facility] [address] [place] [address] Dr. Rosa Tran Basophils/100 WBC (Bld) 0.5 % Normal 0.2-2.0 [facility] Comment on above: Performed By: #### C VDTBH #### [facility] [address] [place] [address] Dr. Rosa Tran EO # 0.0 103/ul Normal 0.0-0.7 [facility] Comment on above: Performed By: #### C VDTBH #### [facility] [address] [place] [address] Dr. Rosa Tran Eosinophils/100 WBC (Bld) 0.2 % Critically low 0.9-7.0 [facility] Comment on above: Performed By: #### C VDTBH #### [facility] [address] [place] [address] Dr. Rosa Tran Erythrocyte distribution width (RBC) [Ratio] 12.5 % Normal 11.0-15.0 [facility] Comment on above: Performed By: #### C VDTBH #### [facility] [address] [place] [address] Dr. Rosa Tran Hematocrit (Bld) [Volume fraction] 39.7 % Critically low 42.0-54.0 [facility] Comment on above: Performed By: #### C VDTBH #### [facility] [address] [place] [address] Dr. Rosa Tran Hemoglobin (Bld) [Mass/Vol] 13.9 g/dL Critically low 14.0-18.0 [facility] Comment on above: Performed By: #### C VDTBH #### [facility] [address] [place] [address] Dr. Rosa Tran IG # 0.02 10e3/ul Normal 0.00-0.03 [facility] Comment on above: Performed By: #### C VDTBH #### [facility] [address] [place] [address] Dr. Rosa Tran IG % 0.2 % Normal 0.0-0.5 [facility] Comment on above: Performed By: #### C VDTBH #### [facility] [address] [place] [address] Dr. Rosa Tran LYMPH # 1.7 103/ul Normal 1.2-3.8 [facility] Comment on above: Performed By: #### C VDTBH #### [facility] [address] [place] [address] Dr. Rosa Tran Lymphocytes/100 WBC (Bld) 19.2 % Critically low 20.5-60.0 [facility] Comment on above: Performed By: #### C VDTBH #### [facility] [address] [place] [address] Dr. Rosa Tran MANUAL DIFF REQ NO Normal [facility] Comment on above: Performed By: #### C VDTBH #### [facility] [address] [place] [address] Dr. Rosa Tran MCH (RBC) [Entitic mass] 30.5 pg Normal 25.9-34.0 [facility] Comment on above: Performed By: #### C VDTBH #### [facility] [address] [place] [address] Dr. Rosa Tran MCHC (RBC) [Mass/Vol] 35.0 g/dL Normal 29.9-35.2 [facility] Comment on above: Performed By: #### C VDTBH #### [facility] [address] [place] [address] Dr. Rosa Tran MCV (RBC) [Entitic vol] 87.1 fL Normal 80.0-94.0 [facility] Comment on above: Performed By: #### C VDTBH #### [facility] [address] [place] [address] Dr. Rosa Tran MONO # 0.6 103/ul Normal 0.3-0.8 [facility] Comment on above: Performed By: #### C VDTBH #### [facility] [address] [place] [address] Dr. Rosa Tran Monocytes/100 WBC (Bld) 7.2 % Normal 1.7-12.0 [facility] Comment on above: Performed By: #### C VDTBH #### [facility] [address] [place] [address] Dr. Rosa Tran NEUT # 6.4 103/ul Normal 1.4-6.5 [facility] Comment on above: Performed By: #### C VDTBH #### [facility] [address] [place] [address] Dr. Rosa Tran Neutrophils/100 WBC (Bld) 72.7 % Normal 43.0-75.0 [facility] Comment on above: Performed By: #### C VDTBH #### [facility] [address] [place] [address] Dr. Rosa Tran Platelet mean volume (Bld) [Entitic vol] 9.6 fL Normal 9.5-13.5 [facility] Comment on above: Performed By: #### C VDTBH #### [facility] [address] [address] [address] Rosa Tran PLT 255 103/ul Normal 150-450 [facility] Comment on above: Performed By: #### C VDTBH #### [facility] [address] [place] [address] Dr. Rosa Tran RBC 4.56 106/ul Critically low 4.70-6.10 [facility] Comment on above: Performed By: #### C VDTBH #### [facility] [address] [place] [address] Dr. Rosa Tran WBC 8.8 103/ul Normal 4.0-11.0 [facility] Comment on above: Performed By: #### C VDTBH #### [facility] [address] [place] [address] Dr. Rosa Tran PROF CHEM 8 (BAS METB)on Anion gap [Moles/Vol] 12.0 mmol/L Normal [facility] Comment on above: Performed By: #### C VDTBH #### [facility] [address] [place] [address] Dr. Rosa Tran Calcium [Mass/Vol] 9.1 mg/dL Normal 8.5-10.1 [facility] Comment on above: Performed By: #### C VDTBH #### [facility] [address] [place] [address] Dr. Rosa Tran Chloride [Moles/Vol] 104 mmol/L Normal 98-107 [facility] Comment on above: Performed By: #### C VDTBH #### [facility] [address] [place] [address] Dr. Rosa Tran CO2 [Moles/Vol] 27.1 mmol/L Normal 21.0-32.0 [facility] Comment on above: Performed By: #### C VDTBH #### [facility] [address] [place] [address] Dr. Rosa Tran Creatinine [Mass/Vol] 0.71 mg/dL Normal 0.70-1.30 [facility] Comment on above: Performed By: #### C VDTBH #### [facility] [address] [place] [address] Dr. Rosa Tran EGFR-AF ECUADOREAN >60 Normal >=60 [facility] Comment on above: Performed By: #### C VDTBH #### [facility] [address] [place] [address] Dr. Rosa Tran EGFR-NON AF ECUADOREAN >60 Normal >=60 [facility] Comment on above: Performed By: #### C VDTBH #### [facility] [address] [place] [address] Dr. Rosa Tran Glucose [Mass/Vol] 116 mg/dL Critically high 74-106 [facility] Comment on above: Performed By: #### C VDTBH #### [facility] [address] [place] [address] Dr. Rosa Tran Potassium [Moles/Vol] 3.1 mmol/L Critically low 3.5-5.1 [facility] Comment on above: Performed By: #### C VDTBH #### [facility] [address] [place] [address] Dr. Rosa Tran Sodium [Moles/Vol] 140 mmol/L Normal 136-145 [facility] Comment on above: Performed By: #### C VDTBH #### [facility] [address] [place] [address] Dr. Rosa Tran Urea nitrogen [Mass/Vol] 10.0 mg/dL Normal 7.0-18.0 [facility] Comment on above: Performed By: #### C VDTBH #### [facility] [address] [place] [address] Dr. Rosa Tran Urea nitrogen/Creatini ne [Mass ratio] 14.1 mg/mg Normal [facility] Comment on above: Performed By: #### C VDTBH #### [facility] [address] [place] [address] Dr. Rosa Tran CBC AUTO DIFFon 10-13-2022 BASO # 0.1 103/ul Normal 0.0-0.1 [facility] Comment on above: Performed By: #### C BC ####[facility] [address] [address]Dr. Rosa Tran Basophils/100 WBC (Bld) 0.7 % Normal 0.2-2.0 [facility] Comment on above: Performed By: #### C BC ####[facility] [address] [place], [place] [address]Dr. Rosa Tran EO # 0.0 103/ul Normal 0.0-0.7 [facility] Comment on above: Performed By: #### C BC ####[facility] [address] [place], [place] [address]Dr. Rosa Tran Eosinophils/100 WBC (Bld) 0.1 % Critically low 0.9-7.0 [facility] Comment on above: Performed By: #### C BC ####[facility] [address] [place], [place] [address]Dr. Rosa Tran Erythrocyte distribution width (RBC) [Ratio] 12.8 % Normal 11.0-15.0 [facility] Comment on above: Performed By: #### C BC ####[facility] [address] [place], [place] [address]Dr. Rosa Tran Hematocrit (Bld) [Volume fraction] 37.8 % Critically low 42.0-54.0 [facility] Comment on above: Performed By: #### C BC ####[facility] [address] [place], [place] [address]Dr. Rosa Tran Hemoglobin (Bld) [Mass/Vol] 12.7 g/dL Critically low 14.0-18.0 [facility] Comment on above: Performed By: #### C BC ####[facility] [address] [place], [place] [address]Dr. Rosa Tran IG # 0.04 10e3/ul Critically high 0.00-0.03 [facility] Comment on above: Performed By: #### C BC ####[facility] [address] [place], [place] [address]DrArgelia Tran IG % 0.5 % Normal 0.0-0.5 [facility] Comment on above: Performed By: #### C BC ####[facility] [address] [address]DrArgelia Tran LYMPH # 1.8 103/ul Normal 1.2-3.8 [facility] Comment on above: Performed By: #### C BC ####[facility] [address] [address]DrArgelia Tran Lymphocytes/100 WBC (Bld) 23.3 % Normal 20.5-60.0 [facility] Comment on above: Performed By: #### C BC ####[facility] [address] [place], [place] [address]DrArgelia Tran MANUAL DIFF REQ NO Normal [facility] Comment on above: Performed By: #### C BC ####[facility] C[address] [place], [place] [address]DrArgelia Tarn MCH (RBC) [Entitic mass] 30.4 pg Normal 25.9-34.0 [facility] Comment on above: Performed By: #### C BC ####[facility] [address] [place], [place] [address]DrArgelia Rosa Marc MCHC (RBC) [Mass/Vol] 33.6 g/dL Normal 29.9-35.2 [facility] Comment on above: Performed By: #### C BC ####[facility] [address] [place], [place] [address]DrArgelia Tran MCV (RBC) [Entitic vol] 90.4 fL Normal 80.0-94.0 [facility] Comment on above: Performed By: #### C BC ####[facility] [address] [place], [place] [address]DrArgelia Tran MONO # 0.5 103/ul Normal 0.3-0.8 [facility] Comment on above: Performed By: #### C BC ####[facility] Conemx[address] [place], [place] [address]DrArgelia Tran Monocytes/100 WBC (Bld) 6.7 % Normal 1.7-12.0 [facility] Comment on above: Performed By: #### C BC ####[facility] [address] [address]DrArgelia Carlsonyoselin Tran NEUT # 5.3 103/ul Normal 1.4-6.5 [facility] Comment on above: Performed By: #### C BC ####[facility] [address] [address]DrArgelia Tran Neutrophils/100 WBC (Bld) 68.7 % Normal 43.0-75.0 [facility] Comment on above: Performed By: #### C BC ####[facility] [address] [place], [place] [address]DrArgelia Tran Platelet mean volume (Bld) [Entitic vol] 9.4 fL Critically low 9.5-13.5 [facility] Comment on above: Performed By: #### C BC ####[facility] [address] [place], [place] [address]DrArgelia Tran PLT 221 103/ul Normal 150-450 [facility] Comment on above: Performed By: #### C BC ####[facility] [address] [place], [place] [address]DrArgelia Tran RBC 4.18 106/ul Critically low 4.70-6.10 [facility] Comment on above: Performed By: #### C BC ####[facility] [address] [address]DrArgelia Tran WBC 7.6 103/ul Normal 4.0-11.0 [facility] Comment on above: Performed By: #### C BC ####[facility] C[address] [place], [place] [address]DrArgelia Tran PROF CHEM 8 (BAS METB)on Anion gap [Moles/Vol] 9.4 mmol/L Normal [facility] Comment on above: Performed By: #### B MP ####[facility] [address] [place], [place] [address]DrArgelia Tran Calcium [Mass/Vol] 8.6 mg/dL Normal 8.5-10.1 [facility] Comment on above: Performed By: #### B MP ####[facility] [address] [address]Dr. Rosa Tran Chloride [Moles/Vol] 105 mmol/L Normal 98-107 [facility] Comment on above: Performed By: #### B MP ####[facility] [address] [address]Dr. Rosa Tran CO2 [Moles/Vol] 26.9 mmol/L Normal 21.0-32.0 [facility] Comment on above: Performed By: #### B MP ####[facility] Ps[address]ifkgnn[address] [place], [place] [address]Dr. Rosa Tran Creatinine [Mass/Vol] 0.61 mg/dL Critically low 0.70-1.30 [facility] Comment on above: Performed By: #### B MP ####[facility] [address] [place], [place] [address]Dr. Rosa Tran EGFR-AF ECUADOREAN >60 Normal >=60 [facility] Comment on above: Performed By: #### B MP ####[facility] [address] [place], [place] [address]Dr. Rosa Marc EGFR-NON AF ECUADOREAN >60 Normal >=60 [facility] Comment on above: Performed By: #### B MP ####[facility] [address] [address]Dr. Rosa Marc Glucose [Mass/Vol] 124 mg/dL Critically high 74-106 [facility] Comment on above: Performed By: #### B MP ####[facility] [address] [place], [place] [address]Dr. Robynyoselin Marc Potassium [Moles/Vol] 3.3 mmol/L Critically low 3.5-5.1 [facility] Comment on above: Performed By: #### B MP ####[facility] [address] [place], [place] [address]Dr. Rosa Tran Sodium [Moles/Vol] 138 mmol/L Normal 136-145 [facility] Comment on above: Performed By: #### B MP ####[facility] [address] [id number]. Rosa Tran Urea nitrogen [Mass/Vol] 5.0 mg/dL Critically low 7.0-18.0 [facility] Comment on above: Performed By: #### B MP ####[facility] [address] [id number]. Rosa Tran Urea nitrogen/Creatini ne [Mass ratio] 8.2 mg/mg Normal [facility] Comment on above: Performed By: #### B MP ####[facility] [address] [id number]. Rosa Tran XR ABD FLAT UP_[place] [...] EMILE CRAIG Date: 2022-10-13 09:07 Normal [facility] CBC AUTO DIFFon 10-12-2022 BASO # 0.0 103/ul Normal 0.0-0.1 [facility] Comment on above: Performed By: #### C BC #### [facility] [address] [address] [address] Rosa Tran Basophils/100 WBC (Bld) 0.4 % Normal 0.2-2.0 [facility] Comment on above: Performed By: #### C BC #### [facility] [address] [address] [address] Rosa Tran EO # 0.0 103/ul Normal 0.0-0.7 [facility] Comment on above: Performed By: #### C BC #### [facility] [address] [place] [address] Dr. Rosa Tran Eosinophils/100 WBC (Bld) 0.0 % Critically low 0.9-7.0 [facility] Comment on above: Performed By: #### C BC #### [facility] [address] [place] [address] Dr. Rosa Tran Erythrocyte distribution width (RBC) [Ratio] 13.2 % Normal 11.0-15.0 [facility] Comment on above: Performed By: #### C BC #### [facility] [address] [place] [address] Dr. Rosa Tran Hematocrit (Bld) [Volume fraction] 34.9 % Critically low 42.0-54.0 [facility] Comment on above: Performed By: #### C BC #### [facility] [address] [place] [address] Dr. Rosa Tran Hemoglobin (Bld) [Mass/Vol] 11.9 g/dL Critically low 14.0-18.0 [facility] Comment on above: Performed By: #### C BC #### [facility] [address] [place] [address] Dr. Rosa Tran IG # 0.02 10e3/ul Normal 0.00-0.03 [facility] Comment on above: Performed By: #### C BC #### [facility] [address] [place] [address] Dr. Rosa Tran IG % 0.2 % Normal 0.0-0.5 [facility] Comment on above: Performed By: #### C BC #### [facility] [address] [place] [address] Dr. Rosa Tran LYMPH # 1.3 103/ul Normal 1.2-3.8 [facility] Comment on above: Performed By: #### C BC #### [facility] [address] [place] [address] Dr. Rosa Tran Lymphocytes/100 WBC (Bld) 15.5 % Critically low 20.5-60.0 [facility] Comment on above: Performed By: #### C BC #### [facility] [address] [place] [address] Dr. Rosa Tran MANUAL DIFF REQ NO Normal [facility] Comment on above: Performed By: #### C BC #### [facility] [address] [place] [address] Dr. Rosa Tran MCH (RBC) [Entitic mass] 31.0 pg Normal 25.9-34.0 [facility] Comment on above: Performed By: #### C BC #### [facility] [address] [place] [address] Dr. Rosa Tran MCHC (RBC) [Mass/Vol] 34.1 g/dL Normal 29.9-35.2 [facility] Comment on above: Performed By: #### C BC #### [facility] [address] [place] [address] Dr. Rosa Tran MCV (RBC) [Entitic vol] 90.9 fL Normal 80.0-94.0 [facility] Comment on above: Performed By: #### C BC #### [facility] [address] [place] [address] Dr. Rosa Tran MONO # 0.4 103/ul Normal 0.3-0.8 [facility] Comment on above: Performed By: #### C BC #### [facility] [address] [place] [address] Dr. Rosa Tran Monocytes/100 WBC (Bld) 4.9 % Normal 1.7-12.0 [facility] Comment on above: Performed By: #### C BC #### [facility] [address] [place] [address] Dr. Rosa Tran NEUT # 6.6 103/ul Critically high 1.4-6.5 [facility] Comment on above: Performed By: #### C BC #### [facility] [address] [place] [address] Dr. Rosa Tran Neutrophils/100 WBC (Bld) 79.0 % Critically high 43.0-75.0 [facility] Comment on above: Performed By: #### C BC #### [facility] [address] [place] [address] Dr. Rosa Tran Platelet mean volume (Bld) [Entitic vol] 9.9 fL Normal 9.5-13.5 [facility] Comment on above: Performed By: #### C BC #### [facility] [address] [address] [address] Rosa Tran PLT 196 103/ul Normal 150-450 [facility] Comment on above: Performed By: #### C BC #### [facility] [address] [address] [address] Rosa Tran RBC 3.84 106/ul Critically low 4.70-6.10 [facility] Comment on above: Performed By: #### C BC #### [facility] [address] [address] [address] Rosa Tran WBC 8.4 103/ul Normal 4.0-11.0 [facility] Comment on above: Performed By: #### C BC #### [facility] [address] [address] [address] Rosa Tran PROF CHEM 8 (BAS METB)on Anion gap [Moles/Vol] 12.1 mmol/L Normal [facility] Comment on above: Performed By: #### B MP ####[facility] [address] [address]DrArgelia Tran Calcium [Mass/Vol] 8.1 mg/dL Critically low 8.5-10.1 [facility] Comment on above: Performed By: #### B MP ####[facility] [address] [address]DrArgelia Tran Chloride [Moles/Vol] 108 mmol/L Critically high 98-107 [facility] Comment on above: Performed By: #### B MP ####[facility] [address] [address]DrArgelia Tran CO2 [Moles/Vol] 24.5 mmol/L Normal 21.0-32.0 [facility] Comment on above: Performed By: #### B MP ####[facility] [address] [address]Dr. Rosa Tran Creatinine [Mass/Vol] 0.64 mg/dL Critically low 0.70-1.30 [facility] Comment on above: Performed By: #### B MP ####[facility] [address] [address]Dr. Robynyoselin Marc EGFR-AF ECUADOREAN >60 Normal >=60 [facility] Comment on above: Performed By: #### B MP ####[facility] [address] [address]Dr. Rosa Tran EGFR-NON AF ECUADOREAN >60 Normal >=60 [facility] Comment on above: Performed By: #### B MP ####[facility] [address] [place], [place] [address]Dr. Rosa Tran Glucose [Mass/Vol] 132 mg/dL Critically high 74-106 [facility] Comment on above: Performed By: #### B MP ####[facility] [address] [place], [place] [address]Dr. Rosa Tran Potassium [Moles/Vol] 3.6 mmol/L Normal 3.5-5.1 [facility] Comment on above: Performed By: #### B MP ####[facility] [address] [place], [place] [address]Dr. Rosa Tran Sodium [Moles/Vol] 141 mmol/L Normal 136-145 [facility] Comment on above: Performed By: #### B MP ####[facility] [address] [place], [place] [address]Dr. Rosa Tran Urea nitrogen [Mass/Vol] 7.0 mg/dL Normal 7.0-18.0 [facility] Comment on above: Performed By: #### B MP ####[facility] [address] [place], [place] [address]Dr. Rosa Tran Urea nitrogen/Creatini ne [Mass ratio] 10.9 mg/mg Normal [facility] Comment on above: Performed By: #### B MP ####[facility] [address] [place], [place] [address]Dr. Rosa Tran CBC AUTO DIFFon 10-11-2022 BASO # 0.0 103/ul Normal 0.0-0.1 [facility] Comment on above: Performed By: #### C VDTBH #### [facility] [address] [place] [address] Dr. Rosa Tran Basophils/100 WBC (Bld) 0.4 % Normal 0.2-2.0 [facility] Comment on above: Performed By: #### C VDTBH #### [facility] [address] [place] [address] Dr. Rosa Tran EO # 0.0 103/ul Normal 0.0-0.7 [facility] Comment on above: Performed By: #### C VDTBH #### [facility] [address] [place] [address] Dr. Rosa Tran Eosinophils/100 WBC (Bld) 0.1 % Critically low 0.9-7.0 [facility] Comment on above: Performed By: #### C VDTBH #### [facility] [address] [place] [address] Dr. Rosa Tran Erythrocyte distribution width (RBC) [Ratio] 13.2 % Normal 11.0-15.0 [facility] Comment on above: Performed By: #### C VDTBH #### [facility] [address] [place] [address] Dr. Rosa Tran Hematocrit (Bld) [Volume fraction] 36.5 % Critically low 42.0-54.0 [facility] Comment on above: Performed By: #### C VDTBH #### [facility] [address] [place] [address] Dr. Rosa Tran Hemoglobin (Bld) [Mass/Vol] 12.5 g/dL Critically low 14.0-18.0 [facility] Comment on above: Performed By: #### C VDTBH #### [facility] [address] [place] [address] Dr. Rosa Tran IG # 0.03 10e3/ul Normal 0.00-0.03 [facility] Comment on above: Performed By: #### C VDTBH #### [facility] [address] [address] [address] Rosa Tran IG % 0.3 % Normal 0.0-0.5 [facility] Comment on above: Performed By: #### C VDTBH #### [facility] [address] [address] [address] Rosa Tran LYMPH # 1.7 103/ul Normal 1.2-3.8 [facility] Comment on above: Performed By: #### C VDTBH #### [facility] [address] [address] [address] Rosa Tran Lymphocytes/100 WBC (Bld) 16.2 % Critically low 20.5-60.0 [facility] Comment on above: Performed By: #### C VDTBH #### [facility] [address] [place] [address] Dr. Rosa Tran MANUAL DIFF REQ NO Normal [facility] Comment on above: Performed By: #### C VDTBH #### [facility] [address] [place] [address] Dr. Rosa Tran MCH (RBC) [Entitic mass] 30.8 pg Normal 25.9-34.0 [facility] Comment on above: Performed By: #### C VDTBH #### [facility] [address] [place] [address] Dr. Rosa Tran MCHC (RBC) [Mass/Vol] 34.2 g/dL Normal 29.9-35.2 [facility] Comment on above: Performed By: #### C VDTBH #### [facility] [address] [place] [address] Dr. Rosa Tran MCV (RBC) [Entitic vol] 89.9 fL Normal 80.0-94.0 [facility] Comment on above: Performed By: #### C VDTBH #### [facility] [address] [place] [address] Dr. Rosa Tran MONO # 0.7 103/ul Normal 0.3-0.8 [facility] Comment on above: Performed By: #### C VDTB #### [facility] [address] [place] [address] Dr. Rosa Tran Monocytes/100 WBC (Bld) 7.2 % Normal 1.7-12.0 [facility] Comment on above: Performed By: #### C VDTBH #### [facility] [address] [place] [address] Dr. Rosa Tran NEUT # 7.7 103/ul Critically high 1.4-6.5 [facility] Comment on above: Performed By: #### C VDTBH #### [facility] [address] [place] [address] Dr. Rosa Tran Neutrophils/100 WBC (Bld) 75.8 % Critically high 43.0-75.0 [facility] Comment on above: Performed By: #### C VDTBH #### [facility] [address] [place] [address] Dr. Rosa Tran Platelet mean volume (Bld) [Entitic vol] 9.1 fL Critically low 9.5-13.5 [facility] Comment on above: Performed By: #### C VDTBH #### [facility] [address] [place] [address] Dr. Rosa Tran PLT 223 103/ul Normal 150-450 [facility] Comment on above: Performed By: #### C VDTBH #### [facility] [address] [place] [address] Dr. Rosa Tran RBC 4.06 106/ul Critically low 4.70-6.10 [facility] Comment on above: Performed By: #### C VDTBH #### [facility] [address] [place] [address] Dr. Rosa Tran WBC 10.2 103/ul Normal 4.0-11.0 [facility] Comment on above: Performed By: #### C VDTBH #### [facility] [address] [place] [address] Dr. Rosa Tran BASO # 0.0 103/ul Normal 0.0-0.1 [facility] Comment on above: Performed By: #### C BC #### [facility] [address] [address] [address] Rosa Tran Basophils/100 WBC (Bld) 0.2 % Normal 0.2-2.0 [facility] Comment on above: Performed By: #### C BC #### [facility] [address] [place] [address] Dr. Rosa Tran EO # 0.0 103/ul Normal 0.0-0.7 [facility] Comment on above: Performed By: #### C BC #### [facility] [address] [place] [address] Dr. Rosa Tran Eosinophils/100 WBC (Bld) 0.0 % Critically low 0.9-7.0 [facility] Comment on above: Performed By: #### C BC #### [facility] [address] [place] [address] Dr. Rosa Tran Erythrocyte distribution width (RBC) [Ratio] 13.2 % Normal 11.0-15.0 [facility] Comment on above: Performed By: #### C BC #### [facility] [address] [place] [address] Dr. Rosa Tran Hematocrit (Bld) [Volume fraction] 35.1 % Critically low 42.0-54.0 [facility] Comment on above: Performed By: #### C BC #### [facility] [address] [place] [address] Dr. Rosa Tran Hemoglobin (Bld) [Mass/Vol] 11.9 g/dL Critically low 14.0-18.0 [facility] Comment on above: Performed By: #### C BC #### [facility] [address] [place] [address] Dr. Rosa Tran IG # 0.03 10e3/ul Normal 0.00-0.03 [facility] Comment on above: Performed By: #### C BC #### [facility] [address] [place] [address] Dr. Rosa Tran IG % 0.3 % Normal 0.0-0.5 [facility] Comment on above: Performed By: #### C BC #### [facility] [address] [address] [address] Rosa Tran LYMPH # 1.2 103/ul Normal 1.2-3.8 [facility] Comment on above: Performed By: #### C BC #### [facility] [address] [place] [address] Dr. Rosa Tran Lymphocytes/100 WBC (Bld) 13.3 % Critically low 20.5-60.0 [facility] Comment on above: Performed By: #### C BC #### [facility] [address] [place] [address] Dr. Rosa Tran MANUAL DIFF REQ NO Normal [facility] Comment on above: Performed By: #### C BC #### [facility] [address] [place] [address] Dr. Rosa Tran MCH (RBC) [Entitic mass] 30.6 pg Normal 25.9-34.0 [facility] Comment on above: Performed By: #### C BC #### [facility] [address] [place] [address] Dr. Rosa Tran MCHC (RBC) [Mass/Vol] 33.9 g/dL Normal 29.9-35.2 [facility] Comment on above: Performed By: #### C BC #### [facility] [address] [place] [address] Dr. Rosa Tran MCV (RBC) [Entitic vol] 90.2 fL Normal 80.0-94.0 [facility] Comment on above: Performed By: #### C BC #### [facility] [address] [place] [address] Dr. Rosa Tran MONO # 0.5 103/ul Normal 0.3-0.8 [facility] Comment on above: Performed By: #### C BC #### [facility] [address] [place] [address] Dr. Rosa Tran Monocytes/100 WBC (Bld) 5.4 % Normal 1.7-12.0 [facility] Comment on above: Performed By: #### C BC #### [facility] [address] [place] [employer], [place] [id number] Dr. Rosa Tran NEUT # 7.3 103/ul Critically high 1.4-6.5 [facility] Comment on above: Performed By: #### C BC #### [facility] [address] [place] [address] Dr. Rosa Tran Neutrophils/100 WBC (Bld) 80.8 % Critically high 43.0-75.0 [facility] Comment on above: Performed By: #### C BC #### [facility] [address] [place] [address] Dr. Rosa Tran Platelet mean volume (Bld) [Entitic vol] 10.0 fL Normal 9.5-13.5 [facility] Comment on above: Performed By: #### C BC #### [facility] [address] [place] [address] Dr. Rosa Tran PLT 225 103/ul Normal 150-450 [facility] Comment on above: Performed By: #### C BC #### [facility] [address] [place] [address] Dr. Rosa Tran RBC 3.89 106/ul Critically low 4.70-6.10 [facility] Comment on above: Performed By: #### C BC #### [facility] [address] [place] [address] Dr. Rosa Tran WBC 9.1 103/ul Normal 4.0-11.0 [facility] Comment on above: Performed By: #### C BC #### [facility] [address] [place] [address] Dr. Rosa Tran [facility] SARS-CoV-2 (COVID-19) RNA VIKAS+probe Ql (Unsp spec) Not detected Normal NOT DETECTED [facility] Comment on above: Result Comment: When [...] for this test is supported by the [employer] Manager of Health and Human Service's declaration that [...] used). Performed By: #### C VDTBH #### [facility] [address] [place] [address] Dr. Rosa Tran DRUG SCREEN RAPID (URINE)on 10-11-2022 AMP Negative Normal NEGATIVE [facility] Comment on above: Performed By: #### C VDTBH #### [facility] [address] [place] [address] Dr. Rosa Tran BAR Negative Normal NEGATIVE [facility] Comment on above: Performed By: #### C VDTBH #### [facility] [address] [place] [address] Dr. Rosa Tran BUP Negative Normal NEGATIVE [facility] Comment on above: Performed By: #### C VDTBH #### [facility] [address] [place] [address] Dr. Rosa Tran BZO Negative Normal NEGATIVE [facility] Comment on above: Performed By: #### C VDTBH #### [facility] [address] [place] [address] Dr. Rosa Tran JOSE LUIS Negative Normal NEGATIVE [facility] Comment on above: Performed By: #### C VDTBH #### [facility] [address] [place] [address] Dr. Rosa Tran CUT-OFFS SEE BELOW Normal [facility] Comment on above: Result Comment: AMP [...] ng/mL Performed By: #### C VDTBH #### [facility] [address] [place] [address] Dr. Rosa Tran DRUG CUT HEADER DRUG CLASS TEST SYST EM CUT-OFF CONCENTRATIONS ARE FOLLOWS: Normal [facility] Comment on above: Performed By: #### C VDTBH #### [facility] [address] [place] [address] Dr. Rosa Tran mAMP Negative Normal NEGATIVE [facility] Comment on above: Performed By: #### C VDTBH #### [facility] [address] [place] [address] Dr. Rosa Tran MTD Negative Normal NEGATIVE [facility] Comment on above: Performed By: #### C VDTBH #### [facility] [address] [place] [address] Dr. Rosa Tran OPI Negative Normal NEGATIVE [facility] Comment on above: Performed By: #### C VDTBH #### [facility] [address] [place] [address] Dr. Rosa Tran OXY Negative Normal NEGATIVE [facility] Comment on above: Performed By: #### C VDTBH #### [facility] [address] [place] [address] Dr. Rosa Tran PCP Negative Normal NEGATIVE [facility] Comment on above: Performed By: #### C VDTBH #### [facility] [address] [place] [address] Dr. Rosa Tran PPX Negative Normal NEGATIVE [facility] Comment on above: Performed By: #### C VDTBH #### [facility] [address] [place] [address] Dr. Rosa Tran TCA Positive Abnormal NEGATIVE [facility] Comment on above: Performed By: #### C VDTBH #### [facility] [address] [address] [address] Rosa Tran THC Positive Abnormal NEGATIVE [facility] Comment on above: Performed By: #### C VDTBH #### [facility] [address] [address] [address] Rosa Tran LACTATE/LACTIC ACIDon 2022 Lactate [Moles/Vol] 1.4 mmol/L Normal 0.4-2.0 [facility] Comment on above: Performed By: #### C VDTBH #### [facility] [address] [address] [address] Rosa Tran LIPASEon 10-11-2022 Lipase [Catalytic activity/Vol] 56.0 U/L Critically low 73.0-393.0 [facility] Comment on above: Performed By: #### C MP, LIPA ####[facility] [address] [address]DrArgelia Tran PROF 14(COMP METB)on 023 Albumin [Mass/Vol] 3.5 g/dL Normal 3.4-5.0 [facility] Comment on above: Performed By: #### C MP, LIPA ####[facility] [address] [address]DrArgelia Tran Albumin/Globulin [Mass ratio] 1.2 {ratio} Normal [facility] Comment on above: Performed By: #### C MP, LIPA ####[facility] [address] [address]Dr. Rosa Tran ALP [Catalytic activity/Vol] 72 U/L Normal 46-116 [facility] Comment on above: Performed By: #### C MP, LIPA ####[facility] [address] [address]Dr. Rosa Tran ALT [Catalytic activity/Vol] 27 U/L Normal 16-63 [facility] Comment on above: Performed By: #### C MP, LIPA ####[facility] [address] [address]DrArgelia Tran Anion gap [Moles/Vol] 11.9 mmol/L Normal [facility] Comment on above: Performed By: #### C MP, LIPA ####[facility] [address] [place], [place] [address]Dr. Rosa Tran AST [Catalytic activity/Vol] 22 U/L Normal 15-37 [facility] Comment on above: Performed By: #### C MP, LIPA ####[facility] [address] [place], [place] [address]Dr. Rosa Tran Bilirubin [Mass/Vol] 0.3 mg/dL Normal 0.2-1.0 [facility] Comment on above: Performed By: #### C MP, LIPA ####[facility] [address] [place], [place] [address]Dr. Rosa Tran Calcium [Mass/Vol] 8.5 mg/dL Normal 8.5-10.1 [facility] Comment on above: Performed By: #### C LEYDI, LIPA ####[facility] [address] [place], [place] [address]Dr. Rosa Tran Chloride [Moles/Vol] 108 mmol/L Critically high 98-107 [facility] Comment on above: Performed By: #### C LEYDI, LIPA ####[facility] [address] [place], [place] [address]Dr. Rosa Tran CO2 [Moles/Vol] 26.9 mmol/L Normal 21.0-32.0 [facility] Comment on above: Performed By: #### C MP, LIPA ####[facility] [address] [place], [place] [address]Dr. Rosa Tran Creatinine [Mass/Vol] 0.69 mg/dL Critically low 0.70-1.30 [facility] Comment on above: Performed By: #### C MP, LIPA ####[facility] [address] [place], [place] [address]Dr. Rosa Tran EGFR-AF ECUADOREAN >60 Normal >=60 [facility] Comment on above: Performed By: #### C MP, LIPA ####[facility] [address] [place], [place] [address]Dr. Rosa Tran EGFR-NON AF ECUADOREAN >60 Normal >=60 [facility] Comment on above: Performed By: #### C LEYDI, LIPA ####[facility] [address] [address]Dr. Rosa Tran Globulin (S) [Mass/Vol] 2.9 g/dL Normal [facility] Comment on above: Performed By: #### C MP, LIPA ####[facility] [address] [place], [place] [address]Dr. Rosa Tran Glucose [Mass/Vol] 113 mg/dL Critically high 74-106 [facility] Comment on above: Performed By: #### C LEYDI, LIPA ####[facility] [address] [place], [place] [address]Dr. Rosa Tran Potassium [Moles/Vol] 3.8 mmol/L Normal 3.5-5.1 [facility] Comment on above: Performed By: #### C LEYDI, LIPA ####[facility] [address] [place], [place] [address]Dr. Rosa Tran Protein [Mass/Vol] 6.4 g/dL Normal 6.4-8.2 [facility] Comment on above: Performed By: #### C LEYDI, LIPA ####[facility] [address] [place], [place] [address]Dr. Rosa Tran Sodium [Moles/Vol] 143 mmol/L Normal 136-145 [facility] Comment on above: Performed By: #### C MP, LIPA ####[facility] [address] [place], [place] [address]Dr. Rosa Tran Urea nitrogen [Mass/Vol] 8.0 mg/dL Normal 7.0-18.0 [facility] Comment on above: Performed By: #### C MP, LIPA ####[facility] [address] [place], [place] [address]Dr. Rosa Tran Urea nitrogen/Creatini ne [Mass ratio] 11.6 mg/mg Normal [facility] Comment on above: Performed By: #### C MP, LIPA ####[facility] [address] [place], [place] [address]Dr. Rosa Tran Albumin [Mass/Vol] 3.2 g/dL Critically low 3.4-5.0 [facility] Comment on above: Performed By: #### C VDTBH #### [facility] [address] [address] [address] Rosa Tran Albumin/Globulin [Mass ratio] 1.2 {ratio} Normal [facility] Comment on above: Performed By: #### C VDTBH #### [facility] [address] [address] [address] Rosa Tran ALP [Catalytic activity/Vol] 75 U/L Normal 46-116 [facility] Comment on above: Performed By: #### C VDTBH #### [facility] [address] [address] [address] Rosa Tran ALT [Catalytic activity/Vol] 24 U/L Normal 16-63 [facility] Comment on above: Performed By: #### C VDTBH #### [facility] [address] [address] [address] Rosa Tran Anion gap [Moles/Vol] 10.7 mmol/L Normal [facility] Comment on above: Performed By: #### C VDTBH #### [facility] [address] [address] [address] Rosa Tran AST [Catalytic activity/Vol] 18 U/L Normal 15-37 [facility] Comment on above: Performed By: #### C VDTBH #### [facility] [address] [address] [address] Rosa Tran Bilirubin [Mass/Vol] 0.4 mg/dL Normal 0.2-1.0 [facility] Comment on above: Performed By: #### C VDTBH #### [facility] [address] [address] [address] Rosa Tran Calcium [Mass/Vol] 8.2 mg/dL Critically low 8.5-10.1 [facility] Comment on above: Performed By: #### C VDTBH #### [facility] [address] [address] [address] Rosa Tran Chloride [Moles/Vol] 106 mmol/L Normal 98-107 [facility] Comment on above: Performed By: #### C VDTBH #### [facility] [address] [place] [address] Dr. Rosa Tran CO2 [Moles/Vol] 24.8 mmol/L Normal 21.0-32.0 [facility] Comment on above: Performed By: #### C VDTBH #### [facility] [address] [place] [address] Dr. Rosa Tran Creatinine [Mass/Vol] 0.74 mg/dL Normal 0.70-1.30 [facility] Comment on above: Performed By: #### C VDTBH #### [facility] [address] [place] [address] Dr. Rosa Tran EGFR-AF ECUADOREAN >60 Normal >=60 [facility] Comment on above: Performed By: #### C VDTBH #### [facility] [address] [place] [address] Dr. Rosa Tran EGFR-NON AF ECUADOREAN >60 Normal >=60 [facility] Comment on above: Performed By: #### C VDTBH #### [facility] [address] [place] [address] Dr. Rosa Tran Globulin (S) [Mass/Vol] 2.7 g/dL Normal [facility] Comment on above: Performed By: #### C VDTBH #### [facility] [address] [place] [address] Dr. Rosa Tran Glucose [Mass/Vol] 111 mg/dL Critically high 74-106 [facility] Comment on above: Performed By: #### C VDTBH #### [facility] [address] [place] [address] Dr. Rosa Tran Potassium [Moles/Vol] 3.5 mmol/L Normal 3.5-5.1 [facility] Comment on above: Performed By: #### C VDTBH #### [facility] [address] [place] [address] Dr. Rosa Tran Protein [Mass/Vol] 5.9 g/dL Critically low 6.4-8.2 [facility] Comment on above: Performed By: #### C VDTBH #### [facility] [address] [address] [address] Rosa Tran Sodium [Moles/Vol] 138 mmol/L Normal 136-145 [facility] Comment on above: Performed By: #### C VDTBH #### [facility] [address] [address] [address] Rosa Tran Urea nitrogen [Mass/Vol] 9.0 mg/dL Normal 7.0-18.0 [facility] Comment on above: Performed By: #### C VDTBH #### [facility] [address] [place] [address] Dr. Rosa Tran Urea nitrogen/Creatini ne [Mass ratio] 12.2 mg/mg Normal [facility] Comment on above: Performed By: #### C VDTBH #### [facility] [address] [place] [address] Dr. Rosa Tran AMYLASEon 10-10-2022 Amylase [Catalytic activity/Vol] 75 U/L Normal 25-115 [facility] Comment on above: Performed By: #### A MY, CMP, LIPA ####[facility] [address] [address]Dr. Rosa Tran CBC AUTO DIFFon 10-10-2022 BASO # 0.1 103/ul Normal 0.0-0.1 [facility] Comment on above: Performed By: #### C BC #### [facility] [address] [place] [address] Dr. Rosa Tran Basophils/100 WBC (Bld) 0.5 % Normal 0.2-2.0 [facility] Comment on above: Performed By: #### C BC #### [facility] [address] [place] [address] Dr. Rosa Tran EO # 0.2 103/ul Normal 0.0-0.7 [facility] Comment on above: Performed By: #### C BC #### [facility] [address] [place] [address] Dr. Rosa Tran Eosinophils/100 WBC (Bld) 1.4 % Normal 0.9-7.0 [facility] Comment on above: Performed By: #### C BC #### [facility] [address] [place] [address] Dr. Rosa Tran Erythrocyte distribution width (RBC) [Ratio] 13.2 % Normal 11.0-15.0 [facility] Comment on above: Performed By: #### C BC #### [facility] [address] [place] [address] Dr. Rosa Tran Hematocrit (Bld) [Volume fraction] 42.7 % Normal 42.0-54.0 [facility] Comment on above: Performed By: #### C BC #### [facility] [address] [place] [address] Dr. Rosa Tran Hemoglobin (Bld) [Mass/Vol] 14.5 g/dL Normal 14.0-18.0 [facility] Comment on above: Performed By: #### C BC #### [facility] [address] [place] [address] Dr. Rosa Tran IG # 0.03 10e3/ul Normal 0.00-0.03 [facility] Comment on above: Performed By: #### C BC #### [facility] [address] [place] [address] Dr. Rosa Tran IG % 0.2 % Normal 0.0-0.5 [facility] Comment on above: Performed By: #### C BC #### [facility] [address] [place] [address] Dr. Rosa Tran LYMPH # 2.0 103/ul Normal 1.2-3.8 [facility] Comment on above: Performed By: #### C BC #### [facility] [address] [place] [address] Dr. Rosa Tran Lymphocytes/100 WBC (Bld) 16.1 % Critically low 20.5-60.0 [facility] Comment on above: Performed By: #### C BC #### [facility] [address] [place] [address] Dr. Rosa Tran MANUAL DIFF REQ NO Normal [facility] Comment on above: Performed By: #### C BC #### [facility] [address] [place] [address] Dr. Rosa Tran MCH (RBC) [Entitic mass] 30.4 pg Normal 25.9-34.0 [facility] Comment on above: Performed By: #### C BC #### [facility] [address] [place] [address] Dr. Rosa Tran MCHC (RBC) [Mass/Vol] 34.0 g/dL Normal 29.9-35.2 [facility] Comment on above: Performed By: #### C BC #### [facility] [address] [place] [address] Dr. Rosa Tran MCV (RBC) [Entitic vol] 89.5 fL Normal 80.0-94.0 [facility] Comment on above: Performed By: #### C BC #### [facility] [address] [place] [address] Dr. Rosa Tran MONO # 0.6 103/ul Normal 0.3-0.8 [facility] Comment on above: Performed By: #### C BC #### [facility] [address] [place] [address] Dr. Rosa Tran Monocytes/100 WBC (Bld) 4.6 % Normal 1.7-12.0 [facility] Comment on above: Performed By: #### C BC #### [facility] [address] [place] [address] Dr. Rosa Tran NEUT # 9.7 103/ul Critically high 1.4-6.5 [facility] Comment on above: Performed By: #### C BC #### [facility] [address] [place] [address] Dr. Rosa Tran Neutrophils/100 WBC (Bld) 77.2 % Critically high 43.0-75.0 [facility] Comment on above: Performed By: #### C BC #### [facility] [address] [place] [address] Dr. Rosa Tran Platelet mean volume (Bld) [Entitic vol] 9.7 fL Normal 9.5-13.5 [facility] Comment on above: Performed By: #### C BC #### [facility] [address] [place] [address] Dr. Rosa Tran PLT 284 103/ul Normal 150-450 [facility] Comment on above: Performed By: #### C BC #### [facility] [address] [address] [address] Rosa Tran RBC 4.77 106/ul Normal 4.70-6.10 [facility] Comment on above: Performed By: #### C BC #### [facility] [address] [place] [address] Dr. Rosa Tran WBC 12.5 103/ul Critically high 4.0-11.0 [facility] Comment on above: Performed By: #### C BC #### [facility] [address] [place] [address] Dr. Rosa Tran Covid-19 PCR (CVDTB)on 10-01 SARS-CoV-2 (COVID-19) RNA VIKAS+probe Ql (Unsp spec) Not detected Normal NOT DETECTED [facility] Comment on above: Result Comment: When [...] for this test is supported by the [place] [place] Manager of Health and Human Service's declaration that [...] used). Performed By: #### C VDTBH #### [facility] [address] [address] [address] Rosa Tran DRUG SCREEN RAPID (URINE)on 10-10-2022 AMP Negative Normal NEGATIVE [facility] Comment on above: Performed By: #### D RUGRPD ####[facility] [address] [address]Dr. Rosa Tran BAR Negative Normal NEGATIVE [facility] Comment on above: Performed By: #### D RUGRPD ####[facility] [address] [address]Dr. Rosa Tran BUP Negative Normal NEGATIVE [facility] Comment on above: Performed By: #### D RUGRPD ####[facility] [address] [address]Dr. Rosa Tran BZO Negative Normal NEGATIVE [facility] Comment on above: Performed By: #### D RUGRPD ####[facility] [address] [address]Dr. Rosa Tran JOSE LUIS Negative Normal NEGATIVE [facility] Comment on above: Performed By: #### D RUGRPD ####[facility] [address] [address]Dr. Rosa Tran CUT-OFFS SEE BELOW Normal [facility] Comment on above: Result Comment: AMP [...] 300 ng/mL Performed By: #### D RUGRPD ####[facility] [address] [place], [place] [address]Dr. Rosa Tran DRUG CUT HEADER DRUG CLASS TEST SYST EM CUT-OFF CONCENTRATIONS ARE FOLLOWS: Normal [facility] Comment on above: Performed By: #### D RUGRPD ####[facility] [address] [address]Dr. Rosa Tran mAMP Negative Normal NEGATIVE [facility] Comment on above: Performed By: #### D RUGRPD ####[facility] [address] [address]Dr. Rosa Tran MTD Negative Normal NEGATIVE [facility] Comment on above: Performed By: #### D RUGRPD ####[facility] [address] [address]Dr. Rosa Tran OPI Negative Normal NEGATIVE [facility] Comment on above: Performed By: #### D RUGRPD ####[facility] [address] [place], [place] [address]Dr. Rosa Tran OXY Negative Normal NEGATIVE [facility] Comment on above: Performed By: #### D RUGRPD ####[facility] [address] [place], [place] [address]Dr. Rosa Tran PCP Negative Normal NEGATIVE [facility] Comment on above: Performed By: #### D RUGRPD ####[facility] [address] [place], [place] [address]Dr. Rosa Tran PPX Negative Normal NEGATIVE [facility] Comment on above: Performed By: #### D RUGRPD ####[facility] [address] [place], [place] [address]Dr. Rosa Tran TCA Positive Abnormal NEGATIVE [facility] Comment on above: Performed By: #### D RUGRPD ####[facility] [address] [address]Dr. Rosa Tran THC Positive Abnormal NEGATIVE [facility] Comment on above: Performed By: #### D RUGRPD ####[facility] [address] [place], [place] [address]Dr. Rosa Tran LACTATE/LACTIC ACIDon 2022 Lactate [Moles/Vol] 1.8 mmol/L Normal 0.4-2.0 [facility] Comment on above: Performed By: #### L ACT ####[facility] [address] [address]Dr. Rosa Tran LIPASEon 10-10-2022 Lipase [Catalytic activity/Vol] 84.0 U/L Normal 73.0-393.0 [facility] Comment on above: Performed By: #### A MY, CMP, LIPA ####[facility] [address] [address]Dr. Rosa Tran PROF 14(COMP METB)on 023 Albumin [Mass/Vol] 4.2 g/dL Normal 3.4-5.0 [facility] Comment on above: Performed By: #### C VDTBH #### [facility] [address] [place] [address] Dr. Rosa Tran Albumin/Globulin [Mass ratio] 1.3 {ratio} Normal [facility] Comment on above: Performed By: #### C VDTBH #### [facility] [address] [place] [address] Dr. Rosa Tran ALP [Catalytic activity/Vol] 104 U/L Normal 46-116 [facility] Comment on above: Performed By: #### C VDTBH #### [facility] [address] [place] [address] Dr. Rosa Tran ALT [Catalytic activity/Vol] 32 U/L Normal 16-63 [facility] Comment on above: Performed By: #### C VDTBH #### [facility] [address] [address] [address] Rosa Tran Anion gap [Moles/Vol] 12.6 mmol/L Normal [facility] Comment on above: Performed By: #### C VDTBH #### [facility] [address] [place] [address] Dr. Rosa Tran AST [Catalytic activity/Vol] 18 U/L Normal 15-37 [facility] Comment on above: Performed By: #### C VDTBH #### [facility] [address] [place] [address] Dr. Rosa Tran Bilirubin [Mass/Vol] 0.3 mg/dL Normal 0.2-1.0 [facility] Comment on above: Performed By: #### C VDTBH #### [facility] [address] [place] [address] Dr. Rosa Tran Calcium [Mass/Vol] 9.3 mg/dL Normal 8.5-10.1 [facility] Comment on above: Performed By: #### C VDTBH #### [facility] [address] [place] [address] Dr. Rosa Tran Chloride [Moles/Vol] 104 mmol/L Normal 98-107 [facility] Comment on above: Performed By: #### C VDTBH #### [facility] [address] [place] [address] Dr. Rosa Tran CO2 [Moles/Vol] 26.2 mmol/L Normal 21.0-32.0 [facility] Comment on above: Performed By: #### C VDTBH #### [facility] [address] [place] [address] Dr. Rosa Tran Creatinine [Mass/Vol] 1.00 mg/dL Normal 0.70-1.30 [facility] Comment on above: Performed By: #### C VDTBH #### [facility] [address] [place] [address] Dr. Rosa Tran EGFR-AF ECUADOREAN >60 Normal >=60 [facility] Comment on above: Performed By: #### C VDTBH #### [facility] [address] [place] [address] Dr. Rosa Tran EGFR-NON AF ECUADOREAN >60 Normal >=60 [facility] Comment on above: Performed By: #### C VDTBH #### [facility] [address] [place] [address] Dr. Rosa Tran Globulin (S) [Mass/Vol] 3.3 g/dL Normal [facility] Comment on above: Performed By: #### C VDTBH #### [facility] [address] [place] [address] Dr. Rosa Tran Glucose [Mass/Vol] 136 mg/dL Critically high 74-106 [facility] Comment on above: Performed By: #### C VDTBH #### [facility] [address] [address] [address] Rosa Tran Potassium [Moles/Vol] 3.8 mmol/L Normal 3.5-5.1 [facility] Comment on above: Performed By: #### C VDTBH #### [facility] [address] [place] [address] Dr. Rosa Tran Protein [Mass/Vol] 7.5 g/dL Normal 6.4-8.2 [facility] Comment on above: Performed By: #### C VDTBH #### [facility] [address] [place] [address] Dr. Rosa Tran Sodium [Moles/Vol] 139 mmol/L Normal 136-145 [facility] Comment on above: Performed By: #### C VDTBH #### [facility] [address] [place] [address] Dr. Rosa Tran Urea nitrogen [Mass/Vol] 11.0 mg/dL Normal 7.0-18.0 [facility] Comment on above: Performed By: #### C VDTBH #### [facility] [address] [place] [address] Dr. Rosa Tran Urea nitrogen/Creatini ne [Mass ratio] 11.0 mg/mg Normal [facility] Comment on above: Performed By: #### C VDTBH #### [facility] [address] [place] [address] Dr. Rosa Tran XR ABD FLAT UP_PA [...] GUERA HUNTER Date: 2022-10-10 05:31 Normal [facility] US VENOUS DOPPLER R Jerry US [...] MISAEL DENNY Date: 2022-10-07 11:01 Normal [facility] AMMONIAon 08-14-2022 Ammonia (P) [Moles/Vol] 50 umol/L Critically high [facility] Comment on above: Performed By: #### A MM #### [facility] [address] [address] [address] Rosa Tran AMYLASEon 08-14-2022 Amylase [Catalytic activity/Vol] 39 U/L Normal 25-115 [facility] Comment on above: Performed By: #### A MY, CMP, LIPA ####[facility] [address] [address]Dr. Rosa Tran CBC AUTO DIFFon 08-14-2022 BASO # 0.1 103/ul Normal 0.0-0.1 [facility] Comment on above: Performed By: #### C BC ####[facility] [address] [address]Dr. Rosa Tran Basophils/100 WBC (Bld) 0.7 % Normal 0.2-2.0 [facility] Comment on above: Performed By: #### C BC ####[facility] [address] [address]Dr. Rosa Tran EO # 0.1 103/ul Normal 0.0-0.7 [facility] Comment on above: Performed By: #### C BC ####[facility] [address] [address]Dr. Rosa Tran Eosinophils/100 WBC (Bld) 0.7 % Critically low 0.9-7.0 [facility] Comment on above: Performed By: #### C BC ####[facility] [address] [address]Dr. Rosa Tran Erythrocyte distribution width (RBC) [Ratio] 13.2 % Normal 11.0-15.0 [facility] Comment on above: Performed By: #### C BC ####[facility] [address] [address]Dr. Rosa Tran Hematocrit (Bld) [Volume fraction] 33.1 % Critically low 42.0-54.0 [facility] Comment on above: Performed By: #### C BC ####[facility] [address] [place], [place] [address]Dr. Rosa Tran Hemoglobin (Bld) [Mass/Vol] 11.2 g/dL Critically low 14.0-18.0 [facility] Comment on above: Performed By: #### C BC ####[facility] E[address]so[address] [place], [place] [address]Dr. Rosa Tran IG # 0.02 10e3/ul Normal 0.00-0.03 [facility] Comment on above: Performed By: #### C BC ####[facility] Bybrqxzq[address] [place], [place] [address]Dr. Rosa Tran IG % 0.3 % Normal 0.0-0.5 [facility] Comment on above: Performed By: #### C BC ####[facility] [address] [place], [place] [address]Dr. Rosa Tran LYMPH # 2.9 103/ul Normal 1.2-3.8 [facility] Comment on above: Performed By: #### C BC ####[facility] [address]wkpfgkim[address] [place], [place] [address]Dr. Rosa Tran Lymphocytes/100 WBC (Bld) 39.6 % Normal 20.5-60.0 [facility] Comment on above: Performed By: #### C BC ####[facility] [address] [address]Dr. Rosa Marc MANUAL DIFF REQ NO Normal [facility] Comment on above: Performed By: #### C BC ####[facility] [address] [address]Dr. Rosa Tran MCH (RBC) [Entitic mass] 30.6 pg Normal 25.9-34.0 [facility] Comment on above: Performed By: #### C BC ####[facility] [address] [place], [place] [address]Dr. Rosa Marc MCHC (RBC) [Mass/Vol] 33.8 g/dL Normal 29.9-35.2 [facility] Comment on above: Performed By: #### C BC ####[facility] [address]tw[address] [place], [place] [address]Dr. Robynyoselin Tran MCV (RBC) [Entitic vol] 90.4 fL Normal 80.0-94.0 [facility] Comment on above: Performed By: #### C BC ####[facility] [address] [place], [place] [address]Dr. Rosa Marc MONO # 0.6 103/ul Normal 0.3-0.8 [facility] Comment on above: Performed By: #### C BC ####[facility] [address] [place], [place] [address]Dr. Rosa Tran Monocytes/100 WBC (Bld) 7.6 % Normal 1.7-12.0 [facility] Comment on above: Performed By: #### C BC ####[facility] H[address]xl[address] [place], [place] [address]Dr. Robynyoselin Marc NEUT # 3.8 103/ul Normal 1.4-6.5 [facility] Comment on above: Performed By: #### C BC ####[facility] S[address]aruif[address] [place], [place] [address]Dr. Rosa Tran Neutrophils/100 WBC (Bld) 51.1 % Normal 43.0-75.0 [facility] Comment on above: Performed By: #### C BC ####[facility] Eh[address]xsu[address] [place], [place] [address]Dr. Rosa Tran Platelet mean volume (Bld) [Entitic vol] 9.7 fL Normal 9.5-13.5 [facility] Comment on above: Performed By: #### C BC ####[facility] [address] [address]Dr. Rosa Tran PLT 208 103/ul Normal 150-450 [facility] Comment on above: Performed By: #### C BC ####[facility] [address] [address]Dr. Rosa Tran RBC 3.66 106/ul Critically low 4.70-6.10 [facility] Comment on above: Performed By: #### C BC ####[facility] [address] [address]Dr. Rosa Tran WBC 7.3 103/ul Normal 4.0-11.0 [facility] Comment on above: Performed By: #### C BC ####[facility] [address] [address]Dr. Rosa Marc LIPASEon 08-14-2022 Lipase [Catalytic activity/Vol] 60.0 U/L Critically low 73.0-393.0 [facility] Comment on above: Performed By: #### A MY, CMP, LIPA ####[facility] [address] [address]Dr. Robynyoselin Tran PROF 14(COMP METB)on 023 Albumin [Mass/Vol] 2.9 g/dL Critically low 3.4-5.0 [facility] Comment on above: Performed By: #### A MY, CMP, LIPA ####[facility] Q[address] [address]Dr. Rosa Tran Albumin/Globulin [Mass ratio] 1.2 {ratio} Normal [facility] Comment on above: Performed By: #### A MY, CMP, LIPA ####[facility] [address]rand[address] [address]Dr. Robynyoselin Tran ALP [Catalytic activity/Vol] 64 U/L Normal 46-116 [facility] Comment on above: Performed By: #### A MY, CMP, LIPA ####[facility] [address]iildz[address] [address]Dr. Rosa Tran ALT [Catalytic activity/Vol] 41 U/L Normal 16-63 [facility] Comment on above: Performed By: #### A MY, CMP, LIPA ####[facility] [address] [address]Dr. Rosa Tran Anion gap [Moles/Vol] 8.7 mmol/L Normal [facility] Comment on above: Performed By: #### A MY, CMP, LIPA ####[facility] [address]zc[address] [place], [place] [address]Dr. Rosa Tran AST [Catalytic activity/Vol] 31 U/L Normal 15-37 [facility] Comment on above: Performed By: #### A MY, CMP, LIPA ####[facility] K[address] [place], [place] [address]Dr. Rosa Tran Bilirubin [Mass/Vol] 0.5 mg/dL Normal 0.2-1.0 [facility] Comment on above: Performed By: #### A MY, CMP, LIPA ####[facility] [address] [place], [place] [address]Dr. Rosa Tran Calcium [Mass/Vol] 8.3 mg/dL Critically low 8.5-10.1 [facility] Comment on above: Performed By: #### A MY, CMP, LIPA ####[facility] [address] [address]Dr. Rosa Tran Chloride [Moles/Vol] 110 mmol/L Critically high 98-107 [facility] Comment on above: Performed By: #### A MY, CMP, LIPA ####[facility] [address]xy[address] [place], [place] [address]Dr. Rosa Tran CO2 [Moles/Vol] 27.0 mmol/L Normal 21.0-32.0 [facility] Comment on above: Performed By: #### A MY, CMP, LIPA ####[facility] [address]ju[address] [place], [place] [address]Dr. Rosa Tran Creatinine [Mass/Vol] 0.77 mg/dL Normal 0.70-1.30 [facility] Comment on above: Performed By: #### A MY, CMP, LIPA ####[facility] [address] [address]Dr. Rosa Tran EGFR-AF ECUADOREAN >60 Normal >=60 [facility] Comment on above: Performed By: #### A MY, CMP, LIPA ####[facility] [address] [address]Dr. Rosa Tran EGFR-NON AF ECUADOREAN >60 Normal >=60 [facility] Comment on above: Performed By: #### A MY, CMP, LIPA ####[facility] [address] [address]Dr. Rosa Tran Globulin (S) [Mass/Vol] 2.4 g/dL Normal [facility] Comment on above: Performed By: #### A MY, CMP, LIPA ####[facility] [address] [address]Dr. Rosa Tran Glucose [Mass/Vol] 128 mg/dL Critically high 74-106 [facility] Comment on above: Performed By: #### A MY, CMP, LIPA ####[facility] [address] [address]Dr. Rosa Tran Potassium [Moles/Vol] 3.6 mmol/L Normal 3.5-5.1 [facility] Comment on above: Performed By: #### A MY, CMP, LIPA ####[facility] [address] [address]Dr. Rosa Tran Protein [Mass/Vol] 5.3 g/dL Critically low 6.4-8.2 [facility] Comment on above: Performed By: #### A MY, CMP, LIPA ####[facility] [address] [address]Dr. Rosa Tran Sodium [Moles/Vol] 142 mmol/L Normal 136-145 [facility] Comment on above: Performed By: #### A MY, CMP, LIPA ####[facility] [address] [address]Dr. Rosa Tran Urea nitrogen [Mass/Vol] 6.0 mg/dL Critically low 7.0-18.0 [facility] Comment on above: Performed By: #### A MY, CMP, LIPA ####[facility] [address] [address]Dr. Rosa Tran Urea nitrogen/Creatini ne [Mass ratio] 7.8 mg/mg Normal [facility] Comment on above: Performed By: #### A MY, CMP, LIPA ####[facility] [address] [address]Dr. Rosa Tran AMMONIAon 08-13-2022 Ammonia (P) [Moles/Vol] 37 umol/L Critically high -32 [facility] Comment on above: Performed By: #### C VDTB #### [facility] [address] [place] [address] Dr. Rosa Tran AMYLASEon 08-13-2022 Amylase [Catalytic activity/Vol] 42 U/L Normal 25-115 [facility] Comment on above: Performed By: #### A MY, LIPA, CMP ####[facility] [address] [place], [place] [address]Dr. Rosa Tran CBC AUTO DIFFon 08-13-2022 BASO # 0.0 103/ul Normal 0.0-0.1 [facility] Comment on above: Performed By: #### C VDTBH #### [facility] [address] [place] [address] Dr. Rosa Tran Basophils/100 WBC (Bld) 0.3 % Normal 0.2-2.0 [facility] Comment on above: Performed By: #### C VDTBH #### [facility] [address] [place] [address] Dr. Rosa Tran EO # 0.0 103/ul Normal 0.0-0.7 [facility] Comment on above: Performed By: #### C VDTBH #### [facility] [address] [place] [address] Dr. Rosa Tran Eosinophils/100 WBC (Bld) 0.1 % Critically low 0.9-7.0 [facility] Comment on above: Performed By: #### C VDTBH #### [facility] [address] [place] [address] Dr. Rosa Tran Erythrocyte distribution width (RBC) [Ratio] 13.2 % Normal 11.0-15.0 [facility] Comment on above: Performed By: #### C VDTBH #### [facility] [address] [place] [address] Dr. Rosa Tran Hematocrit (Bld) [Volume fraction] 32.5 % Critically low 42.0-54.0 [facility] Comment on above: Performed By: #### C VDTBH #### [facility] [address] [place] [address] Dr. Rosa Tran Hemoglobin (Bld) [Mass/Vol] 11.3 g/dL Critically low 14.0-18.0 [facility] Comment on above: Performed By: #### C VDTBH #### [facility] [address] [place] [address] Dr. Rosa Tran IG # 0.02 10e3/ul Normal 0.00-0.03 [facility] Comment on above: Performed By: #### C VDTBH #### [facility] [address] [place] [address] Dr. Rosa Tran IG % 0.3 % Normal 0.0-0.5 [facility] Comment on above: Performed By: #### C VDTBH #### [facility] [address] [place] [address] Dr. Rosa Tran LYMPH # 1.8 103/ul Normal 1.2-3.8 [facility] Comment on above: Performed By: #### C VDTBH #### [facility] [address] [place] [address] Dr. Rosa Tran Lymphocytes/100 WBC (Bld) 23.0 % Normal 20.5-60.0 [facility] Comment on above: Performed By: #### C VDTBH #### [facility] [address] [place] [address] Dr. Rosa Tran MANUAL DIFF REQ NO Normal [facility] Comment on above: Performed By: #### C VDTBH #### [facility] [address] [place] [address] Dr. Rosa Tran MCH (RBC) [Entitic mass] 31.5 pg Normal 25.9-34.0 [facility] Comment on above: Performed By: #### C VDTBH #### [facility] [address] [place] [address] Dr. Rosa Tran MCHC (RBC) [Mass/Vol] 34.8 g/dL Normal 29.9-35.2 [facility] Comment on above: Performed By: #### C VDTBH #### [facility] [address] [place] [address] Dr. Rosa Tran MCV (RBC) [Entitic vol] 90.5 fL Normal 80.0-94.0 [facility] Comment on above: Performed By: #### C VDTBH #### [facility] [address] [place] [address] Dr. Rosa Tran MONO # 0.5 103/ul Normal 0.3-0.8 [facility] Comment on above: Performed By: #### C VDTBH #### [facility] [address] [place] [address] Dr. Rosa Tran Monocytes/100 WBC (Bld) 6.8 % Normal 1.7-12.0 [facility] Comment on above: Performed By: #### C VDTBH #### [facility] [address] [place] [address] Dr. Rosa Tran NEUT # 5.4 103/ul Normal 1.4-6.5 [facility] Comment on above: Performed By: #### C VDTBH #### [facility] [address] [place] [address] Dr. Rosa Tran Neutrophils/100 WBC (Bld) 69.5 % Normal 43.0-75.0 [facility] Comment on above: Performed By: #### C VDTBH #### [facility] [address] [address] [address] Rosa Tran Platelet mean volume (Bld) [Entitic vol] 9.9 fL Normal 9.5-13.5 [facility] Comment on above: Performed By: #### C VDTBH #### [facility] [address] [address] [address] Rosa Tran PLT 197 103/ul Normal 150-450 [facility] Comment on above: Performed By: #### C VDTBH #### [facility] [address] [address] [address] Rosa Tran RBC 3.59 106/ul Critically low 4.70-6.10 [facility] Comment on above: Performed By: #### C VDTBH #### [facility] [address] [address] [address] Rosa Tran WBC 7.8 103/ul Normal 4.0-11.0 [facility] Comment on above: Performed By: #### C VDTBH #### [facility] [address] [address] [address] Rosa Tran LIPASEon 08-13-2022 Lipase [Catalytic activity/Vol] 52.0 U/L Critically low 73.0-393.0 [facility] Comment on above: Performed By: #### A CARMEN LIPA, CMP ####[facility] [address] [address]Dr. Rosa Tran PROF 14(COMP METB)on 023 Albumin [Mass/Vol] 3.3 g/dL Critically low 3.4-5.0 [facility] Comment on above: Performed By: #### A MY, LIPA, CMP ####[facility] [address] [address]Dr. Rosa Tran Albumin/Globulin [Mass ratio] 1.4 {ratio} Normal [facility] Comment on above: Performed By: #### A MY, LIPA, CMP ####[facility] [address] [address]Dr. Rosa Tran ALP [Catalytic activity/Vol] 70 U/L Normal 46-116 [facility] Comment on above: Performed By: #### A ADRIANO MORALES, CMP ####[facility] [address] [address]Dr. Rosa Tran ALT [Catalytic activity/Vol] 31 U/L Normal 16-63 [facility] Comment on above: Performed By: #### A CARMEN LIPA, CMP ####[facility] [address] [address]Dr. Rosa Tran Anion gap [Moles/Vol] 12.0 mmol/L Normal [facility] Comment on above: Performed By: #### A CARMEN LIPA, CMP ####[facility] [address] [address]Dr. Rosa Tran AST [Catalytic activity/Vol] 30 U/L Normal 15-37 [facility] Comment on above: Performed By: #### A CARMEN LIPA, CMP ####[facility] [address] [address]Dr. Rosa Tran Bilirubin [Mass/Vol] 0.5 mg/dL Normal 0.2-1.0 [facility] Comment on above: Performed By: #### A ADRIANO MORALES, CMP ####[facility] [address] [address]Dr. Rosa Tran Calcium [Mass/Vol] 8.2 mg/dL Critically low 8.5-10.1 [facility] Comment on above: Performed By: #### A CARMEN LIPA, CMP ####[facility] Xogyliflfr3758 [place] [address]Dr. Rosa Tran Chloride [Moles/Vol] 108 mmol/L Critically high 98-107 [facility] Comment on above: Performed By: #### A CARMEN LIPA, CMP ####[facility] [address] [place] [address]Dr. Rosa Tran CO2 [Moles/Vol] 25.5 mmol/L Normal 21.0-32.0 [facility] Comment on above: Performed By: #### A CARMEN LIPA, CMP ####[facility] [address] [place] [id number]. Rosa Tran Creatinine [Mass/Vol] 0.68 mg/dL Critically low 0.70-1.30 [facility] Comment on above: Performed By: #### A MY, LIPA, CMP ####[facility] [address] [place] [id number]. Rosa Tran EGFR-AF ECUADOREAN >60 Normal >=60 [facility] Comment on above: Performed By: #### A MY, LIPA, CMP ####[facility] [address] [place] [id number]. Rosa Tran EGFR-NON AF ECUADOREAN >60 Normal >=60 [facility] Comment on above: Performed By: #### A MY, LIPA, CMP ####[facility] [address] [place], [place] [address]Dr. Rosa Tran Globulin (S) [Mass/Vol] 2.4 g/dL Normal [facility] Comment on above: Performed By: #### A MY, LIPA, CMP ####[facility] [address] [place] [address]Dr. Rosa Tran Glucose [Mass/Vol] 109 mg/dL Critically high 74-106 [facility] Comment on above: Performed By: #### A MY, LIPA, CMP ####[facility] [address] [place], [place] [address]Dr. Rosa Tran Potassium [Moles/Vol] 3.5 mmol/L Normal 3.5-5.1 [facility] Comment on above: Performed By: #### A MY, LIPA, CMP ####[facility] [address] [place], [place] [address]Dr. Rosa Tran Protein [Mass/Vol] 5.7 g/dL Critically low 6.4-8.2 [facility] Comment on above: Performed By: #### A MY, LIPA, CMP ####[facility] [address] [place] [address]Dr. Rosa Tran Sodium [Moles/Vol] 142 mmol/L Normal 136-145 [facility] Comment on above: Performed By: #### A CARMEN LIPA, CMP ####[facility] [address] [place] [address]Dr. Rosa Tran Urea nitrogen [Mass/Vol] 9.0 mg/dL Normal 7.0-18.0 [facility] Comment on above: Performed By: #### A MY LIPA, CMP ####[facility] [address] [place] [address]DrArgelia Tran Urea nitrogen/Creatini ne [Mass ratio] 13.2 mg/mg Normal [facility] Comment on above: Performed By: #### A ADRIANO MORALES, CMP ####[facility] [address] [place] [address]DrArgelia Tran CBC AUTO DIFFon 08-12-2022 BASO # 0.0 103/ul Normal 0.0-0.1 [facility] Comment on above: Performed By: #### C VDTB #### [facility] [address] [place] [address] Dr. Rosa Tran Basophils/100 WBC (Bld) 0.3 % Normal 0.2-2.0 [facility] Comment on above: Performed By: #### C VDTBH #### [facility] [address] [place] [address] Dr. Rosa Tran EO # 0.0 103/ul Normal 0.0-0.7 [facility] Comment on above: Performed By: #### C VDTBH #### [facility] [address] [place] [address] Dr. Rosa Tran Eosinophils/100 WBC (Bld) 0.0 % Critically low 0.9-7.0 [facility] Comment on above: Performed By: #### C VDTBH #### [facility] [address] [place] [address] Dr. Rosa Tran Erythrocyte distribution width (RBC) [Ratio] 13.0 % Normal 11.0-15.0 [facility] Comment on above: Performed By: #### C VDTBH #### [facility] [address] [place] [address] Dr. Rosa Tran Hematocrit (Bld) [Volume fraction] 36.9 % Critically low 42.0-54.0 [facility] Comment on above: Performed By: #### C VDTBH #### [facility] [address] [place] [address] Dr. Rosa Tran Hemoglobin (Bld) [Mass/Vol] 12.9 g/dL Critically low 14.0-18.0 [facility] Comment on above: Performed By: #### C VDTBH #### [facility] [address] [place] [address] Dr. Rosa Tran IG # 0.04 10e3/ul Critically high 0.00-0.03 [facility] Comment on above: Performed By: #### C VDTBH #### [facility] [address] [place] [address] Dr. Rosa Tran IG % 0.3 % Normal 0.0-0.5 [facility] Comment on above: Performed By: #### C VDTBH #### [facility] [address] [place] [address] Dr. Rosa Tran LYMPH # 1.4 103/ul Normal 1.2-3.8 [facility] Comment on above: Performed By: #### C VDTBH #### [facility] [address] [place] [address] Dr. Rosa Tran Lymphocytes/100 WBC (Bld) 11.4 % Critically low 20.5-60.0 [facility] Comment on above: Performed By: #### C VDTBH #### [facility] [address] [place] [address] Dr. Rosa Tran MANUAL DIFF REQ NO Normal [facility] Comment on above: Performed By: #### C VDTBH #### [facility] [address] [place] [address] Dr. Rosa Tran MCH (RBC) [Entitic mass] 30.8 pg Normal 25.9-34.0 [facility] Comment on above: Performed By: #### C VDTBH #### [facility] [address] [place] [address] Dr. Rosa Tran MCHC (RBC) [Mass/Vol] 35.0 g/dL Normal 29.9-35.2 [facility] Comment on above: Performed By: #### C VDTBH #### [facility] [address] [place] [address] Dr. Rosa Tran MCV (RBC) [Entitic vol] 88.1 fL Normal 80.0-94.0 [facility] Comment on above: Performed By: #### C VDTBH #### [facility] [address] [place] [address] Dr. Rosa Tran MONO # 0.3 103/ul Normal 0.3-0.8 [facility] Comment on above: Performed By: #### C VDTBH #### [facility] [address] [place] [address] Dr. Rosa Tran Monocytes/100 WBC (Bld) 2.7 % Normal 1.7-12.0 [facility] Comment on above: Performed By: #### C VDTBH #### [facility] [address] [place] [address] Dr. Rosa Tran NEUT # 10.1 103/ul Critically high 1.4-6.5 [facility] Comment on above: Performed By: #### C VDTBH #### [facility] [address] [place] [address] Dr. Rosa Tran Neutrophils/100 WBC (Bld) 85.3 % Critically high 43.0-75.0 [facility] Comment on above: Performed By: #### C VDTBH #### [facility] [address] [place] [address] Dr. Rosa Tran Platelet mean volume (Bld) [Entitic vol] 10.2 fL Normal 9.5-13.5 [facility] Comment on above: Performed By: #### C VDTBH #### [facility] [address] [place] [address] Dr. Rosa Tran PLT 248 103/ul Normal 150-450 [facility] Comment on above: Performed By: #### C VDTBH #### [facility] [address] [place], [place] [address] Dr. Rosa Tran RBC 4.19 106/ul Critically low 4.70-6.10 [facility] Comment on above: Performed By: #### C VDTBH #### [facility] [address] [place], [place] [address] Dr. Rosa Tran WBC 11.8 103/ul Critically high 4.0-11.0 [facility] Comment on above: Performed By: #### C VDTBH #### [facility] [address] [place], [place] [address] Dr. Rosa Tran CTA ABD/PELVIS WO W [...] ALIYAH LAL Date: 2022-08-12 08:48 Normal [facility] Covid-19 PCR (CVDTB)on 08-03 SARS-CoV-2 (COVID-19) RNA VIKAS+probe Ql (Unsp spec) Not detected Normal NOT DETECTED [facility] Comment on above: Result Comment: When [...] for this test is supported by the [employer] Manager of Health and Human Service's declaration that [...] used). Performed By: #### C VDTBH #### [facility] [address] [place] [address] Dr. Rosa Tran DRUG SCREEN RAPID (URINE)on 08-12-2022 AMP Negative Normal NEGATIVE [facility] Comment on above: Performed By: #### D RUGRPD #### [facility] [address] [place] [address] [address] Rosa Tran BAR Negative Normal NEGATIVE [facility] Comment on above: Performed By: #### D RUGRPD #### [facility] [address] [place] [address] [address] Rosa Tran BUP Negative Normal NEGATIVE [facility] Comment on above: Performed By: #### D RUGRPD #### [facility] [address] [place] [address] [address] Rosa Tran BZO Negative Normal NEGATIVE [facility] Comment on above: Performed By: #### D RUGRPD #### [facility] [address] [place] [address] [address] Rosa Tran JOSE LUIS Negative Normal NEGATIVE [facility] Comment on above: Performed By: #### D RUGRPD #### [facility] [address] [place] [address] Dr. Rosa Tran CUT-OFFS SEE BELOW Normal [facility] Comment on above: Result Comment: AMP [...] ng/mL Performed By: #### D RUGRPD #### [facility] [address] [place] [address] Dr. Rosa Tran DRUG CUT HEADER DRUG CLASS TEST SYST EM CUT-OFF CONCENTRATIONS ARE FOLLOWS: Normal [facility] Comment on above: Performed By: #### D RUGRPD #### [facility] [address] [place] [address] Dr. Rosa Tran mAMP Negative Normal NEGATIVE [facility] Comment on above: Performed By: #### D RUGRPD #### [facility] [address] [place] [address] Dr. Rosa Tran MTD Negative Normal NEGATIVE [facility] Comment on above: Performed By: #### D RUGRPD #### [facility] [address] [place] [address] Dr. Rosa Tran OPI Negative Normal NEGATIVE [facility] Comment on above: Performed By: #### D RUGRPD #### [facility] [address] [place] [address] Dr. Rosa Tran OXY Negative Normal NEGATIVE [facility] Comment on above: Performed By: #### D RUGRPD #### [facility] [address] [place] [address] [address] Rosa Tran PCP Negative Normal NEGATIVE [facility] Comment on above: Performed By: #### D RUGRPD #### [facility] [address] [place] [address] Dr. Rosa Tran PPX Negative Normal NEGATIVE [facility] Comment on above: Performed By: #### D RUGRPD #### [facility] [address] [place] [address] [address] Rosa Tran TCA Positive Abnormal NEGATIVE [facility] Comment on above: Performed By: #### D RUGRPD #### [facility] [address] [place] [address] Dr. Rosa Tran THC Positive Abnormal NEGATIVE [facility] Comment on above: Performed By: #### D RUGRPD #### [facility] [address] [place] [address] Dr. Rosa Tran LACTATE/LACTIC ACIDon 2022 Lactate [Moles/Vol] 1.1 mmol/L Normal 0.4-1.9 [facility] Comment on above: Performed By: #### L ACT ####[facility] [address] [place] [address]Dr. Rosa Tran LIPASEon 08-12-2022 Lipase [Catalytic activity/Vol] 55.0 U/L Critically low 73.0-393.0 [facility] Comment on above: Performed By: #### C VDTBH #### [facility] [address] [place] [address] Dr. Rosa Tran PROF 14(COMP METB)on 023 Albumin [Mass/Vol] 4.0 g/dL Normal 3.4-5.0 [facility] Comment on above: Performed By: #### C VDTBH #### [facility] [address] [place] [address] Dr. Rosa Tran Albumin/Globulin [Mass ratio] 1.3 {ratio} Normal [facility] Comment on above: Performed By: #### C VDTBH #### [facility] [address] [place] [address] Dr. Rosa Tran ALP [Catalytic activity/Vol] 94 U/L Normal 46-116 [facility] Comment on above: Performed By: #### C VDTBH #### [facility] [address] [place] [address] Dr. Rosa Tran ALT [Catalytic activity/Vol] 32 U/L Normal 16-63 [facility] Comment on above: Performed By: #### C VDTBH #### [facility] [address] [place] [address] [address] Rosa Tran Anion gap [Moles/Vol] 12.2 mmol/L Normal [facility] Comment on above: Performed By: #### C VDTBH #### [facility] [address] [place] [address] Dr. Rosa Tran AST [Catalytic activity/Vol] 23 U/L Normal 15-37 [facility] Comment on above: Performed By: #### C VDTBH #### [facility] [address] [place] [address] Dr. Rosa Tran Bilirubin [Mass/Vol] 0.5 mg/dL Normal 0.2-1.0 [facility] Comment on above: Performed By: #### C VDTBH #### [facility] [address] [place] [address] Dr. Rosa Tran Calcium [Mass/Vol] 9.4 mg/dL Normal 8.5-10.1 [facility] Comment on above: Performed By: #### C VDTBH #### [facility] [address] [place] [address] Dr. Rosa Tran Chloride [Moles/Vol] 106 mmol/L Normal 98-107 [facility] Comment on above: Performed By: #### C VDTBH #### [facility] [address] [place] [address] Dr. Rosa Tran CO2 [Moles/Vol] 25.3 mmol/L Normal 21.0-32.0 [facility] Comment on above: Performed By: #### C VDTBH #### [facility] [address] [place] [address] [address] Rosa Tran Creatinine [Mass/Vol] 0.76 mg/dL Normal 0.70-1.30 [facility] Comment on above: Performed By: #### C VDTBH #### [facility] [address] [place] [address] [address] Rosa Tran EGFR-AF ECUADOREAN >60 Normal >=60 [facility] Comment on above: Performed By: #### C VDTBH #### [facility] [address] [place] [address] [address] Rosa Tran EGFR-NON AF ECUADOREAN >60 Normal >=60 [facility] Comment on above: Performed By: #### C VDTBH #### [facility] [address] [place] [address] Dr. Rosa Tran Globulin (S) [Mass/Vol] 3.0 g/dL Normal [facility] Comment on above: Performed By: #### C VDTBH #### [facility] [address] [place] [address] Dr. Rosa Tran Glucose [Mass/Vol] 129 mg/dL Critically high 74-106 [facility] Comment on above: Performed By: #### C VDTBH #### [facility] [address] [place] [address] Dr. Rosa Tran Potassium [Moles/Vol] 3.5 mmol/L Normal 3.5-5.1 [facility] Comment on above: Performed By: #### C VDTBH #### [facility] [address] [place] [address] Dr. Rosa Tran Protein [Mass/Vol] 7.0 g/dL Normal 6.4-8.2 [facility] Comment on above: Performed By: #### C VDTBH #### [facility] [address] [place] [address] Dr. Rosa Tran Sodium [Moles/Vol] 140 mmol/L Normal 136-145 [facility] Comment on above: Performed By: #### C VDTBH #### [facility] [address] [place] [address] Dr. Rosa Tran Urea nitrogen [Mass/Vol] 11.0 mg/dL Normal 7.0-18.0 [facility] Comment on above: Performed By: #### C VDTBH #### [facility] [address] [place] [address] Dr. Rosa Tran Urea nitrogen/Creatini ne [Mass ratio] 14.5 mg/mg Normal [facility] Comment on above: Performed By: #### C VDTBH #### [facility] [address] [place] [address] Dr. Rosa Tran AMYLASEon 08-11-2022 Amylase [Catalytic activity/Vol] 67 U/L Normal 25-115 [facility] Comment on above: Performed By: #### C VDTBH #### [facility] [address] [place] [address] Dr. Rosa Tran CBC AUTO DIFFon 08-11-2022 BASO # 0.1 103/ul Normal 0.0-0.1 [facility] Comment on above: Performed By: #### C VDTBH #### [facility] [address] [place] [address] Dr. Rosa Tran Basophils/100 WBC (Bld) 0.4 % Normal 0.2-2.0 [facility] Comment on above: Performed By: #### C VDTBH #### [facility] [address] [place] [address] Dr. Rosa Tran EO # 0.1 103/ul Normal 0.0-0.7 [facility] Comment on above: Performed By: #### C VDTBH #### [facility] [address] [place] [address] Dr. Rosa Tran Eosinophils/100 WBC (Bld) 0.6 % Critically low 0.9-7.0 [facility] Comment on above: Performed By: #### C VDTBH #### [facility] [address] [place] [address] Dr. Rosa Tran Erythrocyte distribution width (RBC) [Ratio] 12.9 % Normal 11.0-15.0 [facility] Comment on above: Performed By: #### C VDTBH #### [facility] [address] [place] [address] Dr. Rosa Tran Hematocrit (Bld) [Volume fraction] 38.4 % Critically low 42.0-54.0 [facility] Comment on above: Performed By: #### C VDTBH #### [facility] [address] [place] [address] Dr. Rosa Tran Hemoglobin (Bld) [Mass/Vol] 13.1 g/dL Critically low 14.0-18.0 [facility] Comment on above: Performed By: #### C VDTBH #### [facility] [address] [place] [address] Dr. Rosa Tran IG # 0.05 10e3/ul Critically high 0.00-0.03 [facility] Comment on above: Performed By: #### C VDTBH #### [facility] [address] [place] [address] Dr. Rosa Tran IG % 0.4 % Normal 0.0-0.5 [facility] Comment on above: Performed By: #### C VDTBH #### [facility] [address] [place] [address] Dr. Rosa Tran LYMPH # 1.6 103/ul Normal 1.2-3.8 [facility] Comment on above: Performed By: #### C VDTBH #### [facility] [address] [place] [address] Dr. Rosa Tran Lymphocytes/100 WBC (Bld) 12.2 % Critically low 20.5-60.0 [facility] Comment on above: Performed By: #### C VDTBH #### [facility] [address] [place] [address] Dr. Rosa Tran MCH (RBC) [Entitic mass] 30.3 pg Normal 25.9-34.0 [facility] Comment on above: Performed By: #### C VDTBH #### [facility] [address] [place] [address] Dr. Rosa Tran MCHC (RBC) [Mass/Vol] 34.1 g/dL Normal 29.9-35.2 [facility] Comment on above: Performed By: #### C VDTBH #### [facility] [address] [place] [address] Dr. Rosa Tran MCV (RBC) [Entitic vol] 88.9 fL Normal 80.0-94.0 [facility] Comment on above: Performed By: #### C VDTBH #### [facility] [address] [place] [address] Dr. Rosa Tran MONO # 0.6 103/ul Normal 0.3-0.8 [facility] Comment on above: Performed By: #### C VDTBH #### [facility] [address] [place] [address] Dr. Rosa Tran Monocytes/100 WBC (Bld) 4.6 % Normal 1.7-12.0 [facility] Comment on above: Performed By: #### C VDTBH #### [facility] [address] [place] [address] Dr. Rosa Tran NEUT # 11.0 103/ul Critically high 1.4-6.5 [facility] Comment on above: Performed By: #### C VDTBH #### [facility] [address] [place] [address] Dr. Rosa Tran Neutrophils/100 WBC (Bld) 81.8 % Critically high 43.0-75.0 [facility] Comment on above: Performed By: #### C VDTBH #### [facility] [address] [place] [address] Dr. Rosa Tran Platelet mean volume (Bld) [Entitic vol] 10.0 fL Normal 9.5-13.5 [facility] Comment on above: Performed By: #### C VDTBH #### [facility] [address] [place] [address] Dr. Rosa Tran PLT 226 103/ul Normal 150-450 [facility] Comment on above: Performed By: #### C VDTBH #### [facility] [address] [place] [address] Dr. Rosa Tran RBC 4.32 106/ul Critically low 4.70-6.10 [facility] Comment on above: Performed By: #### C VDTB #### [facility] [address] [place] [address] [address] Rosa Tran WBC 13.4 103/ul Critically high 4.0-11.0 [facility] Comment on above: Performed By: #### C VDTB #### [facility] [address] [place] [address] [address] ABD/PELV W CONon [...] MISAEL DENNY Date: 2022-08-11 08:55 Normal [facility] Covid-19 PCR (CVDTB)on SARS-CoV-2 (COVID-19) RNA VIKAS+probe Ql (Unsp spec) Not detected Normal NOT DETECTED [facility] Comment on above: Result Comment: When [...] for this test is supported by the [employer] Manager of Health and Human Service's declaration that [...] used). Performed By: #### C VDTBH #### [facility] [address] [place] [address] Dr. Rosa Tran LACTATE/LACTIC ACIDon 2022 Lactate [Moles/Vol] 0.5 mmol/L Normal 0.4-1.9 [facility] Comment on above: Performed By: #### C VDTBH #### [facility] [address] [place] [address] Dr. Rosa Tran LIPASEon 08-11-2022 Lipase [Catalytic activity/Vol] 73.0 U/L Normal 73.0-393.0 [facility] Comment on above: Performed By: #### C VDTBH #### [facility] [address] [place] [address] Dr. Rosa Tran PROF 14(COMP METB)on 023 Albumin [Mass/Vol] 3.9 g/dL Normal 3.4-5.0 [facility] Comment on above: Performed By: #### C VDTBH #### [facility] [address] [place] [address] Dr. Rosa Tran ALP [Catalytic activity/Vol] 91 U/L Normal 46-116 [facility] Comment on above: Performed By: #### C VDTBH #### [facility] [address] [place] [address] [address] Rosa Tran ALT [Catalytic activity/Vol] 34 U/L Normal 16-63 [facility] Comment on above: Performed By: #### C VDTBH #### [facility] [address] [place] [address] [address] Rosa Tran Anion gap [Moles/Vol] 12.6 mmol/L Normal [facility] Comment on above: Performed By: #### C VDTBH #### [facility] [address] [place] [address] [address] Rosa Tran AST [Catalytic activity/Vol] 20 U/L Normal 15-37 [facility] Comment on above: Performed By: #### C VDTBH #### [facility] [address] [place] [address] Dr. Rosa Tran Bilirubin [Mass/Vol] 0.3 mg/dL Normal 0.2-1.0 [facility] Comment on above: Performed By: #### C VDTBH #### [facility] [address] [place] [address] Dr. Rosa Tran Calcium [Mass/Vol] 9.0 mg/dL Normal 8.5-10.1 [facility] Comment on above: Performed By: #### C VDTBH #### [facility] [address] [place] [address] Dr. Rosa Tran Chloride [Moles/Vol] 105 mmol/L Normal 98-107 [facility] Comment on above: Performed By: #### C VDTBH #### [facility] [address] [place] [address] [address] Rosa Tran CO2 [Moles/Vol] 26.9 mmol/L Normal 21.0-32.0 [facility] Comment on above: Performed By: #### C VDTBH #### [facility] [address] [place] [address] Dr. Rosa Tran Creatinine [Mass/Vol] 0.72 mg/dL Normal 0.70-1.30 [facility] Comment on above: Performed By: #### C VDTBH #### [facility] [address] [place] [address] [address] Rsoa Tran Globulin (S) [Mass/Vol] 2.9 g/dL Normal [facility] Comment on above: Performed By: #### C VDTBH #### [facility] [address] [place] [address] [address] Rosa Tran Glucose [Mass/Vol] 125 mg/dL Critically high 74-106 [facility] Comment on above: Performed By: #### C VDTBH #### [facility] [address] [place] [address] [address] Rosa Tran Protein [Mass/Vol] 6.8 g/dL Normal 6.4-8.2 [facility] Comment on above: Performed By: #### C VDTBH #### [facility] [address] [place] [address] [address] Rosa Tran Sodium [Moles/Vol] 141 mmol/L Normal 136-145 [facility] Comment on above: Performed By: #### C VDTBH #### [facility] [address] [place] [address] [address] Rosa Tran Urea nitrogen/Creatini ne [Mass ratio] 15.3 mg/mg Normal [facility] Comment on above: Performed By: #### C VDTBH #### [facility] [address] [place] [address] [address] Rosa Feliciano 04-09-2021 [facility] Office Visit (GENBMI ) ----- TIM CASTELLON ([id number]) 1990 M Date Time Provider Department 04/09/21 [...] vein a (more content not included)... Normal [facility] Kaycee 04-09-2021 [facility] Telephone (GENN) ----- CHINTANJORDYTIM E ([id number]) 1990 Date Time Provider Department 04/09/21 MELANI [...] Status:Closed by MELANI BRANCH on 04/09/21 Normal [place] [facility] Encounters Encounter Date Encounter Type [...] Facility:[facility] Payers Date Payer Category Payer Unknown [id number] 2.16.84 [id number] 1990 Unknown [id number] 2.16.84 [id number] 1990 Unknown [id number] 2.16.84 [id number] 1990 Unknown [id number] 2.16.84 [id number] 1990 Unknown [id number] 2.16.84 [id number] 1990 Unknown [id number] 2.16.84 [id number] 1959 Unknown [id number] Progress note 04-09-2021 Note Date & Type Note Facility 04-09-2021 Note HNO ID: [id number] Author: Naun Rodrigues PA-C Service: ? 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 Author [...] 09, 2021 TIME: 2:16 PM PAGER/CONTACT #: [facility] Summary Purpose Family History No Family History Records FoundNo Family History Records Found Advance Directives No Advanced Directives Records FoundNo Advanced Directives Records Found Additional Source Comments (unrecognized sect ion and content) No Status Records FoundNo Status Records Found INFORMATION SOURCE (unrecogn ized section and content) DATE CREATED AUTHOR 08/07/2021 [facility] DATE CREATED AUTHOR AUTHOR'S ORGANIZ [...] BE BASED ON THE PRIMARY CLINICAL RECORDS. [employer] [facility]. provides no warranty or guarantee of the accuracy or completeness of information in this document.
[2024-08-30 09:38] LABS: Basophils Percent Auto 0.4 % (0.2-2.0); Eosinophils Percent Auto 0.1 % (0.9-7.0); Hematocrit 38.1 % (42.0-54.0); Hemoglobin 13.3 g/dL (14.0-18.0); Immature Granulocytes Abs Auto 0.01 10^3/uL (0.00-0.03); Immature Granulocytes Pct Auto 0.1 % (0.0-0.5); Lymphocytes Absolute Auto 1.5 10^3/uL (1.2-3.8); Lymphocytes Percent Auto 21.5 % (20.5-60.0); Mean Corpuscular HGB Conc 34.9 g/dL (29.9-35.2); Mean Corpuscular Hemoglobin 31.4 pg (25.9-34.0); Mean Corpuscular Volume 89.9 fL (80.0-94.0); Mean Platelet Volume 9.6 fL (9.5-13.5); Monocytes Absolute Auto 0.6 10^3/uL (0.3-0.8); Monocytes Percent Auto 8.6 % (1.7-12.0); Neutrophils Absolute Auto 4.9 10^3/uL (1.4-6.5); Neutrophils Percent Auto 69.3 % (43.0-75.0); Platelet Count 227 10^3/uL (150-450); Red Blood Count 4.24 10^6/uL (4.70-6.10); White Blood Count 7.1 10^3/uL (4.0-11.0)
[2024-08-30 10:01] LABS: Alanine Aminotransferase 42 U/L (16-63); Albumin Globulin Ratio 1.4; Albumin Level 3.8 g/dL (3.4-5.0); Alkaline Phosphatase 73 U/L (46-116); Anion Gap 12.5; Aspartate Amino Transferase 34 U/L (15-37); BUN Creatinine Ratio 14.7; Bilirubin Total 0.5 mg/dL (0.2-1.0); Calcium 8.9 mg/dL (8.5-10.1); Carbon Dioxide 27.2 mmol/L (21.0-32.0); Chloride 103 mmol/L (98-107); Estimated GFR (African America >60 (>=60 mL/min/1.73m^2); Estimated GFR (Non-African Ame >60 (>=60 mL/min/1.73m^2); Globulin 2.8 g/dL; Glucose 115 mg/dL (74-106); Potassium 3.7 mmol/L (3.5-5.1); Sodium 139 mmol/L (136-145); Total Protein 6.6 g/dL (6.4-8.2)
[2024-08-30 10:09] LABS: Lactate/Lactic Acid 1.1 mmol/L (0.4-2.0)
[2024-08-30 10:12] LABS: Bilirubin Urine NEGATIVE (NEGATIVE); Blood Urine NEGATIVE (NEGATIVE); Clarity Urine CLEAR (CLEAR); Color Urine LT. YELLOW (YELLOW); Glucose Urine UA NEGATIVE (NEGATIVE); Ketones Urine NEGATIVE (NEGATIVE); Leukocyte Esterase Urine NEGATIVE (NEGATIVE); Nitrite Urine NEGATIVE (NEGATIVE); Protein Urine NEGATIVE (NEG/TRACE); Urobilinogen Urine 0.2 EU/dL (0.2-1.0); pH Urine 7.5 (5.0-9.0)
[2024-08-30 10:20] LABS: Amphetamine Screen Urine NEGATIVE (NEGATIVE); Barbiturates Screen Urine NEGATIVE (NEGATIVE); Benzodiazepines Screen Urine NEGATIVE (NEGATIVE); Buprenorphine Screen Urine NEGATIVE (NEGATIVE); Cannabinoid Screen Urine POSITIVE (NEGATIVE); Cocaine Screen Urine NEGATIVE (NEGATIVE); Methadone Screen Urine NEGATIVE (NEGATIVE); Methamphetamines Screen Urine NEGATIVE (NEGATIVE); Opiate Screen Urine NEGATIVE (NEGATIVE); Oxycodone Screen Urine NEGATIVE (NEGATIVE); Phencyclidine Screen Urine NEGATIVE (NEGATIVE); Tricyclic Antidepressant Urine POSITIVE (NEGATIVE)
[2024-08-30 10:34] LABS: Bacteria Urine MODERATE #/HPF (NONE SEEN); Mucus Urine NONE SEEN (NONE SEEN); RBC Urine NONE SEEN #/HPF (0-2); WBC Urine NONE SEEN #/HPF (NONE SEEN)
[2024-08-30 10:35] LABS: Amorphous Sediment Urine MODERATE; Cast Seen? NONE SEEN #/LPF (NONE SEEN); Crystals Seen? Seen #/HPF (None Seen); Squamous Epithelial Cell Urine RARE #/LPF (NONE/RARE); Urine Culture Indicated YES-FRMC
[2024-08-30] MEDS: DIAZEPAM 10 MG/2 ML SYRINGE 2 MG IV (10:43)
[2024-08-30] MEDS: lidocaine HCL 15 ML, MAG HYDROX/ALUMINUM HYD/SIMETH 30 ML, HYOSCYAMINE SULFATE 0.25 MG PO (10:43)
[2024-08-30 10:50] VITALS: BP 140/94; PULSE 82; O2SAT 97
== END 2024-08-30 11:29 | disposition home or self-care (01) ==
PROVIDERS: Emergency Provider Emergency Medicine; PCP Nurse Practitioner Family
DX: R10.11 Right upper quadrant pain (principal); R10.13 Epigastric pain; K55.1 Chronic vascular disorders of intestine; F17.200 Nicotine dependence, unspecified, uncomplicated; R11.15 Cyclical vomiting syndrome unrelated to migraine; K29.70 Gastritis, unspecified, without bleeding; F12.10 Cannabis abuse, uncomplicated
CPT/HCPCS: 36415; 80053; 80307; 81001; 83605; 83690; 85025; 87086; 96361; 96374; 96375; 99284; J0780; J1885; J2405; J3360; J3490

== ENCOUNTER 2024-09-14 11:13 | Emergency (ER) | payer OTHER, SELFPAY ==
[2024-09-14 11:17] VITALS: BP 149/95; PULSE 96; TEMP 37; O2SAT 99; BMI 23.3
--- NOTE | 2024-09-14 11:20 | PC.NURSE ---
Dental pain to left upper and lower jaw, has broken teeth. Patient given list of dental provider as patient called dentist and was unable to get appointment for > 30 days.
--- OUTSIDE RECORDS SUMMARY | 2024-09-14 11:20 | XMS_ITS | CCD ---
Author Organization [facility] Care Team Providers Care Parking Officer Name Role Phone GLEN ., DR LECHUGA Attending Unavailable HOY ., DR LECHUGA Consulting Unavailable HOY ., DR LECHUGA Primary Care Unavailable HOY ., DR LECHUGA Admanna Unavailable ZIEBER, DR MISAEL Laboy Consulting Unavailable HAY ., DR FRAGA Consulting Unavailable ZIEBER, DR MISAEL Laboy Consulting Unavailable HOY ., DR LECHUGA Primary Care Unavailable SULAIMAN, TITUS Admitting Unavailable TITUS HILARIO Attending Unavailable TITUS HILARIO Consulting Unavailable PAY [...] LAL Consulting Unavailable HOY ., DR LECHUGA Admitting Unavailable HOY ., DR LECHUGA Attending Unavailable HOY ., DR LECHUGA Consulting Unavailable HOY ., DR LECHUGA Primary Care Unavailable HAY ., DR FRAGA Consulting Unavailable ERVIN CHAO Consulting Unavailable EMILE CRAIG Consulting Unavailable LI SINGH Consulting Unavailable HOY ., DR LECHUGA Attending Unavailable HOY ., DR LECHUGA Consulting Unavailable HOY ., DR LECHUGA Primary Care Unavailable HOY ., DR LECHUGA Admanna Unavailable NADERER, DR MANUELA Willard Consulting Unavailable ERVIN CHAO Consulting Unavailable GUERA HUNTER Consulting Unavailable TITUS HILARIO Primary Care Unavailable KARL DIAZ Attending Unavailable Pay Mert PERRY Attending Provider PayMert Admitting Unavailable PayMert Attending Unavailable Problems Active Problems Problem Classification Problem Date Documented Da te Episodic/Chronic Abdominal pain (3 sources) Unspecified abdominal pain; Translations: [Abdominal pain] Onset: 10-19-2022 Episodic Diseases of white blood [...] 08-12-2022 Episodic Other aftercare (1 source) 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; Translations: [OTH MANAGEMENT SCIENTIST CURRENT DRUG THERAPY] Onset: 10-19-2022 Episodic Other aftercare (1 source) local company intermodal truck driver (current) use of aspirin; Translations: [MANAGEMENT SCIENTIST CURRENT USE OF ASPIRIN] Onset: 10-19-2022 Episodic Other connective tissue disease (4 sources) Pain in right forearm; Translations: [PAIN IN RIGHT FOREARM] Onset: 10-07-2022 Episodic Other nervous system disorders (2 sources) Other chronic pain; Translations: [OTHER CHRONIC PAIN] [...] [CONTACT W/AND (SUSP) EXPOS COVID-19] Onset: 10-19-2022 Unclassified (1 source) ill Onset: 08-28-2024 Past or Other Problems Problem Classification Problem Date Documented Da te Episodic/Chronic Disorders of teeth and jaw (5 sources) Other specified disorders of teeth and supporting structures; Translations: [Dental caries, unspecified] Onset: 02-06-2022 Episodic Other nervous system disorders (1 source) Atypical facial pain; Translations: [ATYPICAL FACIAL PAIN] Onset: 02-07-2022 Episodic Results Test Name Value Interpretation Reference Range Facility Urine Cultureon 08-30-2024 Bacteria identified Cx Nom (U) No Growth 2 Days PERFORMED BY: [facility] [address] [place] [address] PATHOLOGIST [employer] JUAN DASILVA M.D. Normal [facility] Comment on above: Performed By: #### C UU #### [facility] [address] CBC AND AUTO DIFFon 08-28-19 25 ABSOLUTE BASOPHIL 0.1 X10E9/L Normal 0.0-0.2 [facility] Comment on above: Performed By: #### C CONNOR CMP, 3040-3 #### [facility] ([id number]) [address] [place] [address] 83648 ABSOLUTE NEUTROPHIL 6.3 X10E9/L Normal 1.5-6.6 [facility] Comment on above: Performed By: #### C CONNOR CMP, 3040-3 #### [facility] ([id number]) [address] [place] [address] 29176 Basophils/100 WBC (Bld) 0.9 % Normal [facility] Comment on above: Performed By: #### C BCA CMP, 3040-3 #### [facility] ([id number]) [address] [place] [address] 58370 Eosinophils (Bld) [#/Vol] 0.0 10*3/uL Normal 0.0-0.4 [facility] Comment on above: Performed By: #### C BCA, CMP, 3040-3 #### [facility] ([id number]) [address] [place] [address] 17060 Eosinophils/100 WBC (Bld) 0.0 % Normal [facility] Comment on above: Performed By: #### Soco RYAN CMP, 3 #### [facility] ([id number]) [address] [place] [address] 71199 Erythrocyte distribution width (RBC) [Ratio] 13.6 % Normal 11.5-15.0 [facility] Comment on above: Performed By: #### Soco RYAN [facility], 3039-09 #### [facility] ([id number]) [address] [place] [address] 70884 Hematocrit (Bld) [Volume fraction] 39.2 % Normal 39-49 [facility] Comment on above: Performed By: #### Soco RYAN CMP, 3039-09 #### [facility] ([id number]) [address] [place] [address] 34342 Hemoglobin (Bld) [Mass/Vol] 13.8 g/dL Normal 13.0-17.0 [facility] Comment on above: Performed By: #### Soco RYAN [facility], 3039-09 #### [facility] ([id number]) [address] [place] [address] 54561 Lymphocytes (Bld) [#/Vol] 1.9 10*3/uL Normal 1.0-3.5 [facility] Comment on above: Performed By: #### Soco RYAN CMP, 3039-09 #### [facility] ([id number]) [address] [place] [address] 02399 Lymphocytes/100 WBC (Bld) 20.3 % Normal [facility] Comment on above: Performed By: #### Soco RYAN CMP, 3039-09 #### [facility] ([id number]) [address] [place] [address] 93934 MCH (RBC) [Entitic mass] 31.2 pg Normal 27-34 [facility] Comment on above: Performed By: #### Soco RYAN CMP, 3039-3 #### [facility] ([id number]) [address] [place] [address] 59954 MCHC (RBC) [Mass/Vol] 35.2 g/dL Normal 32-36 [facility] Comment on above: Performed By: #### Soco RYAN CMP, 3 #### [facility] ([id number]) [address] [place] [address] 65240 MCV (RBC) [Entitic vol] 88 fL Normal 80-100 [facility] Comment on above: Performed By: #### Soco RYAN CMP, 3039-09 #### [facility] ([id number]) [address] [place] [address] 96305 Monocytes (Bld) [#/Vol] 0.9 10*3/uL Normal 0-0.9 [facility] Comment on above: Performed By: #### Soco RYAN CMP, 3039-09 #### [facility] ([id number]) [address] [place] [address] 59126 Monocytes/100 WBC (Bld) 10.3 % Normal [facility] Comment on above: Performed By: #### Soco RYAN CMP, 3039-09 #### [facility] ([id number]) [address] [place] [address] 51871 Neutrophils/100 WBC (Bld) 68.5 % Normal [facility] Comment on above: Performed By: #### Soco RYAN CMP, 3 #### [facility] ([id number]) [address] [place] [address] 12527 Platelet mean volume (Bld) [Entitic vol] 8.2 fL Normal 7-12 [facility] Comment on above: Performed By: #### Soco RYAN CMP, 3039-3 #### [facility] ([id number]) [address] [place] [address] 15011 Platelets (Bld) [#/Vol] 259 10*3/uL Normal 150-450 [facility] Comment on above: Performed By: #### C BCA, CMP, 3040-3 #### [facility] ([id number]) [address] [place] [address] 17834 RBC COUNT 4.43 X10E12/L Normal 4.10-5.70 [facility] Comment on above: Performed By: #### C BCA, CMP, 3039-3 #### [facility] ([id number]) [address] [place] [address] 09066 WBC (Bld) [#/Vol] 9.2 10*3/uL Normal 4.0-11.0 [facility] Comment on above: Performed By: #### C BCA, CMP, 3039-3 #### [facility] ([id number]) [address] [place] [address] 41364 COMPREHENSIVE METABOLIC PANE Jai 08-28-2024 Albumin [Mass/Vol] 4.6 g/dL Normal 3.2-5.3 [facility] Comment on above: Performed By: #### C BCA, CMP, 0-3 #### [facility] ([id number]) [address] [place] [address] 24015 ALP [Catalytic activity/Vol] 71 U/L Normal 39-130 [facility] Comment on above: Performed By: #### C BCA, CMP, 0-3 #### [facility] ([id number]) [address] [place] [address] 54383 ALT [Catalytic activity/Vol] 36 U/L Normal 0-40 [facility] Comment on above: Performed By: #### C BCA, CMP, 0-3 #### [facility] ([id number]) [address] [place] [address] 87795 Anion gap [Moles/Vol] 9 mmol/L Normal 5-15 [facility] Comment on above: Performed By: #### C CONNOR CMP, 3039-3 #### [facility] ([id number]) [address] [place] [address] 57758 AST [Catalytic activity/Vol] 41 U/L Normal 0-41 [facility] Comment on above: Performed By: #### C CONNOR CMP, 3039-09 #### [facility] ([id number]) [address] [place] [address] 62929 Bilirubin [Mass/Vol] 0.8 mg/dL Normal 0.3-1.2 [facility] Comment on above: Performed By: #### C CONNOR CMP, 3 #### [facility] ([id number]) [address] [place] [address] 07610 Calcium [Mass/Vol] 9.1 mg/dL Normal 8.5-10.5 [facility] Comment on above: Performed By: #### C CONNOR CMP, 3 #### [facility] ([id number]) [address] [place] [address] 98393 Chloride [Moles/Vol] 98 mmol/L Normal 98-109 [facility] Comment on above: Performed By: #### C BCA CMP, 3 #### [facility] ([id number]) [address] [place] [address] 66744 CO2 [Moles/Vol] 24 mmol/L Normal 22-32 [facility] Comment on above: Performed By: #### C BCA, CMP, 3039-3 #### [facility] ([id number]) [address] [place] [address] 28917 Creatinine [Mass/Vol] 0.91 mg/dL Normal 0.70-1.20 [facility] Comment on above: Result Comment: METH OD TRACEABLE TO IDMS STANDARD Performed By: #### C CARLOS RYAN, 0-3 #### [facility] ([id number]) [address] [place] [address] 35821 eGFR (CKD-EPI) NON-RACE DEPENDENT >90 Normal >59 [facility] Comment on above: Result Comment: Reported eGFR is based on the CKD-EPI 2020 equation that does not use a race coefficient. Performed By: #### C CARLOS RYAN, 3039-3 #### [facility] ([id number]) [address] [place] [address] 00829 Glucose [Mass/Vol] 127 mg/dL High 65-99 [facility] Comment on above: Performed By: #### Soco RYAN CMP, 3039-3 #### [facility] ([id number]) [address] [place] [address] 00699 Potassium [Moles/Vol] 3.3 mmol/L Low 3.5-5.0 [facility] Comment on above: Performed By: #### Soco RYAN [facility], 3 #### [facility] ([id number]) [address] [place] [address] 97595 Protein [Mass/Vol] 7.6 g/dL Normal 6.0-8.0 [facility] Comment on above: Performed By: #### Soco RYAN [facility], 3039-3 #### [facility] ([id number]) [address] [place] [address] 80027 Sodium [Moles/Vol] 131 mmol/L Low 134-146 [facility] Comment on above: Performed By: #### Soco RYAN CMP, 3039-3 #### [facility] ([id number]) [address] [place] [address] 74054 Urea nitrogen [Mass/Vol] 26 mg/dL High 5-23 [facility] Comment on above: Performed By: #### C CONNOR, CMP, 3040-3 #### [facility] ([id number]) [address] [place] [address] 80008 LIPASEon 08-28-2024 Lipase [Catalytic activity/Vol] 28 U/L Normal 17-40 [facility] Comment on above: Performed By: #### C CONNOR, CMP, 3040-3 #### [facility] ([id number]) [address] [place] [address] 45203 Lactate (P rui) [Moles/Vol]o n 08-28-2024 LACTATE W/REFLEX 1.7 mmol/L Normal 0.4-2.0 [facility] Comment on above: Result Comment: Result did not trigger repeat Lactate, re-order if needed. Performed By: #### 3 2133-1 #### [facility] ([id number]) [address] [place] [address] 91987 COMPLIANCE DRUG SCREENon PDF . Normal [facility] Comment on above: Performed By: #### C VDTB #### [facility] [address] [place] [address] Dr. Rosa Tran Summary FINAL Normal [facility] Comment on above: Result Comment: = TOXASSURE COMP DRUG ANALYSIS,UR = Test Result Flag Units Drug Present Carboxy-THC >546 ng/mg creat Carboxy-THC is a metabolite of tetrahydrocannabinol (THC). Source of THC is most commonly herbal marijuana or marijuana-based products, but THC is also present in a scheduled prescription medication. Trace amounts of THC can be present in hemp and cannabidiol (CBD) products. This test is not intended to distinguish between vhhzz-7-ajfwapcmxuhilvlfoqec, the predominant form of THC in most herbal or marijuana-based products, and osfgw-7-benrkcgoyqpamnnilffw. Amitriptyline PRESENT Nortriptyline PRESENT Nortriptyline may be administered as a prescription drug; it is also an expected metabolite of amitriptyline. Acetaminophen PRESENT Diphenhydramine PRESENT = Test Result Flag Units Ref Range Creatinine 183 mg/dL >=20 = Declared Medications: Medication list was not provided. = For clinical consultation, please call . = Performed By: #### C VDTBH #### [facility] [address] [place] [address] Dr. Rosa Tran CBC AUTO DIFFon 10-14-2022 BASO # 0.0 103/ul Normal 0.0-0.1 [facility] Comment on above: Performed By: #### C VDTBH #### [facility] [address] [place] [address] Dr. Rosa Tran Basophils/100 WBC (Bld) 0.5 % Normal 0.2-2.0 [facility] Comment on above: Performed By: #### C VDTBH #### [facility] [address] [place] [address] Dr. Rosa Tran EO # 0.0 103/ul Normal 0.0-0.7 [facility] Comment on above: Performed By: #### C VDTBH #### [facility] [address] [place] [address] Dr. Rosa Tran Eosinophils/100 WBC (Bld) 0.2 % Critically low 0.9-7.0 [facility] Comment on above: Performed By: #### C VDTBH #### [facility] [address] [place] [address] Dr. Rosa Tran Erythrocyte distribution width (RBC) [Ratio] 12.5 % Normal 11.0-15.0 [facility] Comment on above: Performed By: #### C VDTBH #### [facility] [address] [place] [address] Dr. Rosa Tran Hematocrit (Bld) [Volume fraction] 39.7 % Critically low 42.0-54.0 [facility] Comment on above: Performed By: #### C VDTBH #### [facility] [address] [place] [address] Dr. Rosa Tran Hemoglobin (Bld) [Mass/Vol] 13.9 g/dL Critically low 14.0-18.0 [facility] Comment on above: Performed By: #### C VDTBH #### [facility] [address] [place] [address] Dr. Rosa Tran IG # 0.02 10e3/ul Normal 0.00-0.03 [facility] Comment on above: Performed By: #### C VDTBH #### [facility] [address] [place] [address] Dr. Rosa Tran IG % 0.2 % Normal 0.0-0.5 [facility] Comment on above: Performed By: #### C VDTBH #### [facility] [address] [place] [address] Dr. Rosa Tran LYMPH # 1.7 103/ul Normal 1.2-3.8 [facility] Comment on above: Performed By: #### C VDTBH #### [facility] [address] [place] [address] Dr. Rosa Tran Lymphocytes/100 WBC (Bld) 19.2 % Critically low 20.5-60.0 [facility] Comment on above: Performed By: #### C VDTBH #### [facility] [address] [place] [address] Dr. Rosa Tran MANUAL DIFF REQ NO Normal [facility] Comment on above: Performed By: #### C VDTBH #### [facility] [address] [place] [address] Dr. Rosa Tran MCH (RBC) [Entitic mass] 30.5 pg Normal 25.9-34.0 [facility] Comment on above: Performed By: #### C VDTBH #### [facility] [address] [place] [address] Dr. Rosa Tran MCHC (RBC) [Mass/Vol] 35.0 g/dL Normal 29.9-35.2 [facility] Comment on above: Performed By: #### C VDTBH #### [facility] [address] [place] [address] Dr. Rosa Tran MCV (RBC) [Entitic vol] 87.1 fL Normal 80.0-94.0 [facility] Comment on above: Performed By: #### C VDTBH #### [facility] [address] [place] [address] Dr. Rosa Tran MONO # 0.6 103/ul Normal 0.3-0.8 [facility] Comment on above: Performed By: #### C VDTBH #### [facility] [address] [place] [address] Dr. Rosa Tran Monocytes/100 WBC (Bld) 7.2 % Normal 1.7-12.0 [facility] Comment on above: Performed By: #### C VDTBH #### [facility] [address] [place] [address] Dr. Rosa Tran NEUT # 6.4 103/ul Normal 1.4-6.5 [facility] Comment on above: Performed By: #### C VDTBH #### [facility] [address] [place] [address] Dr. Rosa Tran Neutrophils/100 WBC (Bld) 72.7 % Normal 43.0-75.0 [facility] Comment on above: Performed By: #### C VDTBH #### [facility] [address] [place] [address] Dr. Rosa Tran Platelet mean volume (Bld) [Entitic vol] 9.6 fL Normal 9.5-13.5 [facility] Comment on above: Performed By: #### C VDTBH #### [facility] [address] [place] [address] Dr. Rosa Tran PLT 255 103/ul Normal 150-450 [facility] Comment on above: Performed By: #### C VDTBH #### [facility] [address] [place] [address] Dr. Rosa Tran RBC 4.56 106/ul Critically low 4.70-6.10 [facility] Comment on above: Performed By: #### C VDTBH #### [facility] [address] [place] [address] Dr. Rosa Tran WBC 8.8 103/ul Normal 4.0-11.0 [facility] Comment on above: Performed By: #### C VDTBH #### [facility] [address] [place] [address] Dr. Rosa Tran PROF CHEM 8 (BAS METB)on Anion gap [Moles/Vol] 12.0 mmol/L Normal [facility] Comment on above: Performed By: #### C VDTBH #### [facility] [address] [place] [address] Dr. Rosa Tran Calcium [Mass/Vol] 9.1 mg/dL Normal 8.5-10.1 [facility] Comment on above: Performed By: #### C VDTBH #### [facility] [address] [place] [address] Dr. Rosa Tran Chloride [Moles/Vol] 104 mmol/L Normal 98-107 [facility] Comment on above: Performed By: #### C VDTBH #### [facility] [address] [place] [address] Dr. Rosa Tran CO2 [Moles/Vol] 27.1 mmol/L Normal 21.0-32.0 [facility] Comment on above: Performed By: #### C VDTBH #### [facility] [address] [place] [address] Dr. Rosa Tran Creatinine [Mass/Vol] 0.71 mg/dL Normal 0.70-1.30 [facility] Comment on above: Performed By: #### C VDTBH #### [facility] [address] [place] [address] Dr. Rosa Tran EGFR-AF MOSOTHO >60 Normal >=60 [facility] Comment on above: Performed By: #### C VDTBH #### [facility] [address] [place] [address] Dr. Rosa Tran EGFR-NON AF [place]HO >60 Normal >=60 [facility] Comment on above: Performed By: #### C VDTBH #### [facility] [address] [place] [address] Dr. Rosa Tran Glucose [Mass/Vol] 116 mg/dL Critically high 74-106 [facility] Comment on above: Performed By: #### C VDTBH #### [facility] [address] [place] [address] Dr. Rosa Tran Potassium [Moles/Vol] 3.1 mmol/L Critically low 3.5-5.1 [facility] Comment on above: Performed By: #### C VDTBH #### [facility] [address] [place] [address] Dr. Rosa Tran Sodium [Moles/Vol] 140 mmol/L Normal 136-145 [facility] Comment on above: Performed By: #### C VDTBH #### [facility] [address] [place] [address] Dr. Rosa Tran Urea nitrogen [Mass/Vol] 10.0 mg/dL Normal 7.0-18.0 [facility] Comment on above: Performed By: #### C VDTBH #### [facility] [address] [address] [address] Rosa Tran Urea nitrogen/Creatinin e [Mass ratio] 14.1 mg/mg Normal [facility] Comment on above: Performed By: #### C VDTBH #### [facility] [address] [place] [address] Dr. Rosa Tran CBC AUTO DIFFon 10-13-2022 BASO # 0.1 103/ul Normal 0.0-0.1 [facility] Comment on above: Performed By: #### C BC ####[facility] [id number] [address]DrArgelia Tran Basophils/100 WBC (Bld) 0.7 % Normal 0.2-2.0 [facility] Comment on above: Performed By: #### C BC ####[facility] [address] [place], [place] [address]Dr. Rosa Tran EO # 0.0 103/ul Normal 0.0-0.7 [facility] Comment on above: Performed By: #### C BC ####[facility] [address] [address]DrArgelia Tran Eosinophils/100 WBC (Bld) 0.1 % Critically low 0.9-7.0 [facility] Comment on above: Performed By: #### C BC ####[facility] [address] [address]DrArgelia Tran Erythrocyte distribution width (RBC) [Ratio] 12.8 % Normal 11.0-15.0 [facility] Comment on above: Performed By: #### C BC ####[facility] [address] [address]Dr. Rosa Tran Hematocrit (Bld) [Volume fraction] 37.8 % Critically low 42.0-54.0 [facility] Comment on above: Performed By: #### C BC ####[facility] [address] [address]Dr. Robynyoselin Marc Hemoglobin (Bld) [Mass/Vol] 12.7 g/dL Critically low 14.0-18.0 [facility] Comment on above: Performed By: #### C BC ####[facility] [address] [address]Dr. Rosa Tran IG # 0.04 10e3/ul Critically high 0.00-0.[address] [facility] Comment on above: Performed By: #### C BC ####[facility] [address] [address]Dr. Rosa Tran IG % 0.5 % Normal 0.0-0.5 [facility] Comment on above: Performed By: #### C BC ####[facility] [address] [address]Dr. Rosa Tran LYMPH # 1.8 103/ul Normal 1.2-3.8 [facility] Comment on above: Performed By: #### C BC ####[facility] [address] [address]Dr. Rosa Tran Lymphocytes/100 WBC (Bld) 23.3 % Normal 20.5-60.0 [facility] Comment on above: Performed By: #### C BC ####[facility] [address] [place] [address]Dr. Rosa Tran MANUAL DIFF REQ NO Normal [facility] Comment on above: Performed By: #### C BC ####[facility] L[address]kiytmr[address] [place], [place] [address]Dr. Robynyoselin Tran MCH (RBC) [Entitic mass] 30.4 pg Normal 25.9-34.0 [facility] Comment on above: Performed By: #### C BC ####[facility] [address] [place] [id number]. Rosa Tran MCHC (RBC) [Mass/Vol] 33.6 g/dL Normal 29.9-35.2 [facility] Comment on above: Performed By: #### C BC ####[facility] Cdxcwsfopt4[address] [place] [id number]. Rosa Tran MCV (RBC) [Entitic vol] 90.4 fL Normal 80.0-94.0 [facility] Comment on above: Performed By: #### C BC ####[facility] S[address]xbugv8[address] [place] [id number]. Rosa Tran MONO # 0.5 103/ul Normal 0.3-0.8 [facility] Comment on above: Performed By: #### C BC ####[facility] C[address]de[address] [place], [place] [address]Dr. Rosa Tran Monocytes/100 WBC (Bld) 6.7 % Normal 1.7-12.0 [facility] Comment on above: Performed By: #### C BC ####[facility] V[address] [place], [place] [id number]. Rosa Tran NEUT # 5.3 103/ul Normal 1.4-6.5 [facility] Comment on above: Performed By: #### C BC ####[facility] Ty[address]fe[address] [place], [place] [id number]. Rosa Tran Neutrophils/100 WBC (Bld) 68.7 % Normal 43.0-75.0 [facility] Comment on above: Performed By: #### C BC ####[facility] Fo[address]avjcke[address] [place] [id number]. Rosa Tran Platelet mean volume (Bld) [Entitic vol] 9.4 fL Critically low 9.5-13.5 [facility] Comment on above: Performed By: #### C BC ####[facility] [address] [place], [place] [id number]. Rosa Marc PLT 221 103/ul Normal 150-450 [facility] Comment on above: Performed By: #### C BC ####[facility] [address]smvnj[address] [place] [address]Dr. Rosa Tran RBC 4.18 106/ul Critically low 4.70-6.10 [facility] Comment on above: Performed By: #### C BC ####[facility] [address]qccs[address] [place] [address]Dr. Rosa Tran WBC 7.6 103/ul Normal 4.0-11.0 [facility] Comment on above: Performed By: #### C BC ####[facility] [address]dtxoj[address] [place] [address]Dr. Rosa Tran PROF CHEM 8 (BAS METB)on Anion gap [Moles/Vol] 9.4 mmol/L Normal [facility] Comment on above: Performed By: #### B MP ####[facility] Ttxkxeb[address]vx[address] [place], [place] [address]Dr. Rosa Tran Calcium [Mass/Vol] 8.6 mg/dL Normal 8.5-10.1 [facility] Comment on above: Performed By: #### B MP ####[facility] Jatrwrem[address] [place], [place] [address]Dr. Rosa Tran Chloride [Moles/Vol] 105 mmol/L Normal 98-107 [facility] Comment on above: Performed By: #### B MP ####[facility] Ksysaf[address]xy[address] [place], [place] [address]Dr. Rosa Tran CO2 [Moles/Vol] 26.9 mmol/L Normal 21.0-32.0 [facility] Comment on above: Performed By: #### B MP ####[facility] P[address] [place], [place] [address]Dr. Rosa Tran Creatinine [Mass/Vol] 0.61 mg/dL Critically low 0.70-1.30 [facility] Comment on above: Performed By: #### B MP ####[facility] [address]jcq[address] [place], [place] [address]Dr. Rosa Tran EGFR-AF MOSOTHO >60 Normal >=60 [facility] Comment on above: Performed By: #### B MP ####[facility] Dewk[address]pqvq[address] [place] [id number]. Rosa Tran EGFR-NON AF MOSOTHO >60 Normal >=60 [facility] Comment on above: Performed By: #### B MP ####[facility] Qkr[address]ndzmnp[address] [place] [address]Dr. Rosa Tran Glucose [Mass/Vol] 124 mg/dL Critically high 74-106 [facility] Comment on above: Performed By: #### B MP ####[facility] T[address]staovvge[address] [place] [address]Dr. Rosa Tran Potassium [Moles/Vol] 3.3 mmol/L Critically low 3.5-5.1 [facility] Comment on above: Performed By: #### B MP ####[facility] Fx[address]ibpxfg[address] [place] [address]Dr. Rosa Tran Sodium [Moles/Vol] 138 mmol/L Normal 136-145 [facility] Comment on above: Performed By: #### B MP ####[facility] Bmo[address]ssqgbl[address] [place] [address]Dr. Rosa Tran Urea nitrogen [Mass/Vol] 5.0 mg/dL Critically low 7.0-18.0 [facility] Comment on above: Performed By: #### B MP ####[facility] [address] [place] [address]Dr. Rosa Tran Urea nitrogen/Creatinin e [Mass ratio] 8.2 mg/mg Normal [facility] Comment on above: Performed By: #### B MP ####[facility] [address] [place] [address]Dr. Rosa Tran XR ABD FLAT UP_[place] [facility] [...] EMILE CRAIG Date: 2022-10-13 09:07 Normal [facility] CBC AUTO DIFFon 10-12-2022 BASO # 0.0 103/ul Normal 0.0-0.1 [facility] Comment on above: Performed By: #### C BC #### [facility] [address] [place] [address] [address] Rosa Tran Basophils/100 WBC (Bld) 0.4 % Normal 0.2-2.0 [facility] Comment on above: Performed By: #### C BC #### [facility] [address] [address] [address] Rosa Tran EO # 0.0 103/ul Normal 0.0-0.7 [facility] Comment on above: Performed By: #### C BC #### [facility] [address] [address] [address] Rosa Tran Eosinophils/100 WBC (Bld) 0.0 % Critically low 0.9-7.0 [facility] Comment on above: Performed By: #### C BC #### [facility] [address] [address] [address] Rosa Tran Erythrocyte distribution width (RBC) [Ratio] 13.2 % Normal 11.0-15.0 [facility] Comment on above: Performed By: #### C BC #### [facility] [address] [address] [address] Rosa Tran Hematocrit (Bld) [Volume fraction] 34.9 % Critically low 42.0-54.0 [facility] Comment on above: Performed By: #### C BC #### [facility] [address] [address] [address] Rosa Tran Hemoglobin (Bld) [Mass/Vol] 11.9 g/dL Critically low 14.0-18.0 [facility] Comment on above: Performed By: #### C BC #### [facility] [address] [address] [address] Rosa Tran IG # 0.02 10e3/ul Normal 0.00-0.03 [facility] Comment on above: Performed By: #### C BC #### [facility] [address] [place] [address] Dr. Rosa Tran IG % 0.2 % Normal 0.0-0.5 [facility] Comment on above: Performed By: #### C BC #### [facility] [address] [place] [address] Dr. Rosa Tran LYMPH # 1.3 103/ul Normal 1.2-3.8 [facility] Comment on above: Performed By: #### C BC #### [facility] [address] [place] [address] Dr. Rosa Tran Lymphocytes/100 WBC (Bld) 15.5 % Critically low 20.5-60.0 [facility] Comment on above: Performed By: #### C BC #### [facility] [address] [place] [address] Dr. Rosa Tran MANUAL DIFF REQ NO Normal [facility] Comment on above: Performed By: #### C BC #### [facility] [address] [place] [address] Dr. Rosa Tran MCH (RBC) [Entitic mass] 31.0 pg Normal 25.9-34.0 [facility] Comment on above: Performed By: #### C BC #### [facility] [address] [place] [address] Dr. Rosa Tran MCHC (RBC) [Mass/Vol] 34.1 g/dL Normal 29.9-35.2 [facility] Comment on above: Performed By: #### C BC #### [facility] [address] [place] [address] Dr. Rosa Tran MCV (RBC) [Entitic vol] 90.9 fL Normal 80.0-94.0 [facility] Comment on above: Performed By: #### C BC #### [facility] [address] [place] [address] Dr. Rosa Tran MONO # 0.4 103/ul Normal 0.3-0.8 [facility] Comment on above: Performed By: #### C BC #### [facility] [address] [place] [address] [address] Rosa Tran Monocytes/100 WBC (Bld) 4.9 % Normal 1.7-12.0 [facility] Comment on above: Performed By: #### C BC #### [facility] [address] [place] [address] [address] Rosa Tran NEUT # 6.6 103/ul Critically high 1.4-6.5 [facility] Comment on above: Performed By: #### C BC #### [facility] [address] [place] [address] [address] Rosa Tran Neutrophils/100 WBC (Bld) 79.0 % Critically high 43.0-75.0 [facility] Comment on above: Performed By: #### C BC #### [facility] [address] [place] [address] Dr. Rosa Tran Platelet mean volume (Bld) [Entitic vol] 9.9 fL Normal 9.5-13.5 [facility] Comment on above: Performed By: #### C BC #### [facility] [address] [place] [address] [address] Rosa Tran PLT 196 103/ul Normal 150-450 [facility] Comment on above: Performed By: #### C BC #### [facility] [address] [place] [address] Dr. Rosa Tran RBC 3.84 106/ul Critically low 4.70-6.10 [facility] Comment on above: Performed By: #### C BC #### [facility] [address] [place] [address] Dr. Rosa Tran WBC 8.4 103/ul Normal 4.0-11.0 [facility] Comment on above: Performed By: #### C BC #### [facility] [address] [place] [address] Dr. Rosa Tran PROF CHEM 8 (BAS METB)on Anion gap [Moles/Vol] 12.1 mmol/L Normal [facility] Comment on above: Performed By: #### B MP ####[facility] [address] [place] [address]Dr. Rosa Tran Calcium [Mass/Vol] 8.1 mg/dL Critically low 8.5-10.1 [facility] Comment on above: Performed By: #### B MP ####[facility] [address] [place] [address]Dr. Rosa Tran Chloride [Moles/Vol] 108 mmol/L Critically high 98-107 [facility] Comment on above: Performed By: #### B MP ####[facility] [address] [place] [address]Dr. Rosa Tran CO2 [Moles/Vol] 24.5 mmol/L Normal 21.0-32.0 [facility] Comment on above: Performed By: #### B MP ####[facility] Xyj[address]avy[address] [place], [place] [address]Dr. Rosa Tran Creatinine [Mass/Vol] 0.64 mg/dL Critically low 0.70-1.30 [facility] Comment on above: Performed By: #### B MP ####[facility] [address] [place] [address]Dr. Rosa Tran EGFR-AF MOSOTHO >60 Normal >=60 [facility] Comment on above: Performed By: #### B MP ####[facility] [address]cf[address]fs[address] [place], [place] [address]Dr. Rosa Tran EGFR-NON AF MOSOTHO >60 Normal >=60 [facility] Comment on above: Performed By: #### B MP ####[facility] [address]ie[address] [place] [address]Dr. Rosa Tran Glucose [Mass/Vol] 132 mg/dL Critically high 74-106 [facility] Comment on above: Performed By: #### B MP ####[facility] [address]tmcmjddz[address] [place] [address]Dr. Rosa Tran Potassium [Moles/Vol] 3.6 mmol/L Normal 3.5-5.1 [facility] Comment on above: Performed By: #### B MP ####[facility] [address] [place], [place] [address]CjArgelia Tran Sodium [Moles/Vol] 141 mmol/L Normal 136-145 [facility] Comment on above: Performed By: #### B MP ####[facility] [address] [place], [place] [address]VwArgelia Tran Urea nitrogen [Mass/Vol] 7.0 mg/dL Normal 7.0-18.0 [facility] Comment on above: Performed By: #### B MP ####[facility] [address]ptlcmm[address] [place] [address]DrArgelia Tran Urea nitrogen/Creatinin e [Mass ratio] 10.9 mg/mg Normal [facility] Comment on above: Performed By: #### B MP ####[facility] [address]wm[address] [place] [address]DrArgelia Tran CBC AUTO DIFFon 10-11-2022 BASO # 0.0 103/ul Normal 0.0-0.1 [facility] Comment on above: Performed By: #### C VDTBH #### [facility] [address] [place] [address] [address] Rosa Tran Basophils/100 WBC (Bld) 0.4 % Normal 0.2-2.0 [facility] Comment on above: Performed By: #### C VDTBH #### [facility] [address] [place] [address] [address] Rosa Tran EO # 0.0 103/ul Normal 0.0-0.7 [facility] Comment on above: Performed By: #### C VDTBH #### [facility] [address] [place] [address] [address] Rosa Tran Eosinophils/100 WBC (Bld) 0.1 % Critically low 0.9-7.0 [facility] Comment on above: Performed By: #### C VDTBH #### [facility] [address] [address] [address] Rosa Tran Erythrocyte distribution width (RBC) [Ratio] 13.2 % Normal 11.0-15.0 [facility] Comment on above: Performed By: #### C VDTBH #### [facility] [address] [place] [address] Dr. Rosa Tran Hematocrit (Bld) [Volume fraction] 36.5 % Critically low 42.0-54.0 [facility] Comment on above: Performed By: #### C VDTBH #### [facility] [address] [place] [address] Dr. Rosa Tran Hemoglobin (Bld) [Mass/Vol] 12.5 g/dL Critically low 14.0-18.0 [facility] Comment on above: Performed By: #### C VDTBH #### [facility] [address] [place] [address] Dr. Rosa Tran IG # 0.03 10e3/ul Normal 0.00-0.03 [facility] Comment on above: Performed By: #### C VDTBH #### [facility] [address] [place] [address] Dr. Rosa Tran IG % 0.3 % Normal 0.0-0.5 [facility] Comment on above: Performed By: #### C VDTBH #### [facility] [address] [place] [address] Dr. Rosa Tran LYMPH # 1.7 103/ul Normal 1.2-3.8 [facility] Comment on above: Performed By: #### C VDTBH #### [facility] [address] [place] [address] Dr. Rosa Tran Lymphocytes/100 WBC (Bld) 16.2 % Critically low 20.5-60.0 [facility] Comment on above: Performed By: #### C VDTBH #### [facility] [address] [place] [address] Dr. Rosa Tran MANUAL DIFF REQ NO Normal [facility] Comment on above: Performed By: #### C VDTBH #### [facility] [address] [place] [address] Dr. Rosa Tran MCH (RBC) [Entitic mass] 30.8 pg Normal 25.9-34.0 [facility] Comment on above: Performed By: #### C VDTBH #### [facility] [address] [place] [address] Dr. Rosa Tran MCHC (RBC) [Mass/Vol] 34.2 g/dL Normal 29.9-35.2 [facility] Comment on above: Performed By: #### C VDTBH #### [facility] [address] [place] [address] Dr. Rosa Tran MCV (RBC) [Entitic vol] 89.9 fL Normal 80.0-94.0 [facility] Comment on above: Performed By: #### C VDTBH #### [facility] [address] [place] [address] Dr. Rosa Tran MONO # 0.7 103/ul Normal 0.3-0.8 [facility] Comment on above: Performed By: #### C VDTBH #### [facility] [address] [place] [address] Dr. Rosa Tran Monocytes/100 WBC (Bld) 7.2 % Normal 1.7-12.0 [facility] Comment on above: Performed By: #### C VDTBH #### [facility] [address] [place] [address] Dr. Rosa Tran NEUT # 7.7 103/ul Critically high 1.4-6.5 [facility] Comment on above: Performed By: #### C VDTBH #### [facility] [address] [place] [address] Dr. Rosa Tran Neutrophils/100 WBC (Bld) 75.8 % Critically high 43.0-75.0 [facility] Comment on above: Performed By: #### C VDTBH #### [facility] [address] [place] [address] Dr. Rosa Tran Platelet mean volume (Bld) [Entitic vol] 9.1 fL Critically low 9.5-13.5 [facility] Comment on above: Performed By: #### C VDTBH #### [facility] [address] [place] [address] Dr. Rosa Tran PLT 223 103/ul Normal 150-450 [facility] Comment on above: Performed By: #### C VDTBH #### [facility] [address] [place] [address] Dr. Rosa Tran RBC 4.06 106/ul Critically low 4.70-6.10 [facility] Comment on above: Performed By: #### C VDTBH #### [facility] [address] [place] [address] Dr. Rosa Tran WBC 10.2 103/ul Normal 4.0-11.0 [facility] Comment on above: Performed By: #### C VDTBH #### [facility] [address] [place] [address] Dr. Rosa Tran BASO # 0.0 103/ul Normal 0.0-0.1 [facility] Comment on above: Performed By: #### C BC #### [facility] [address] [place] [address] Dr. Rosa Tran Basophils/100 WBC (Bld) 0.2 % Normal 0.2-2.0 [facility] Comment on above: Performed By: #### C BC #### [facility] [address] [place] [address] Dr. Rosa Tran EO # 0.0 103/ul Normal 0.0-0.7 [facility] Comment on above: Performed By: #### C BC #### [facility] [address] [place] [address] Dr. Rosa Tran Eosinophils/100 WBC (Bld) 0.0 % Critically low 0.9-7.0 [facility] Comment on above: Performed By: #### C BC #### [facility] [address] [place] [address] Dr. Rosa Tran Erythrocyte distribution width (RBC) [Ratio] 13.2 % Normal 11.0-15.0 [facility] Comment on above: Performed By: #### C BC #### [facility] [address] [place] [address] Dr. Rosa Tran Hematocrit (Bld) [Volume fraction] 35.1 % Critically low 42.0-54.0 [facility] Comment on above: Performed By: #### C BC #### [facility] [address] [place] [address] Dr. Rosa Tran Hemoglobin (Bld) [Mass/Vol] 11.9 g/dL Critically low 14.0-18.0 [facility] Comment on above: Performed By: #### C BC #### [facility] [address] [place] [address] Dr. Rosa Tran IG # 0.03 10e3/ul Normal 0.00-0.03 [facility] Comment on above: Performed By: #### C BC #### [facility] [address] [place] [address] Dr. Rosa Tran IG % 0.3 % Normal 0.0-0.5 [facility] Comment on above: Performed By: #### C BC #### [facility] [address] [place] [address] Dr. Rosa Tran LYMPH # 1.2 103/ul Normal 1.2-3.8 [facility] Comment on above: Performed By: #### C BC #### [facility] [address] [place] [address] Dr. Rosa Tran Lymphocytes/100 WBC (Bld) 13.3 % Critically low 20.5-60.0 [facility] Comment on above: Performed By: #### C BC #### [facility] [address] [place] [address] Dr. Rosa Tran MANUAL DIFF REQ NO Normal [facility] Comment on above: Performed By: #### C BC #### [facility] [address] [place] [address] Dr. Rosa Tran MCH (RBC) [Entitic mass] 30.6 pg Normal 25.9-34.0 [facility] Comment on above: Performed By: #### C BC #### [facility] [address] [place] [address] Dr. Rosa Tran MCHC (RBC) [Mass/Vol] 33.9 g/dL Normal 29.9-35.2 [facility] Comment on above: Performed By: #### C BC #### [facility] [address] [address] [address] Rosa Tran MCV (RBC) [Entitic vol] 90.2 fL Normal 80.0-94.0 [facility] Comment on above: Performed By: #### C BC #### [facility] [address] [address] [address] Rosa Tran MONO # 0.5 103/ul Normal 0.3-0.8 [facility] Comment on above: Performed By: #### C BC #### [facility] [address] [address] [address] Rosa Tran Monocytes/100 WBC (Bld) 5.4 % Normal 1.7-12.0 [facility] Comment on above: Performed By: #### C BC #### [facility] [address] [address] [address] Rosa Tran NEUT # 7.3 103/ul Critically high 1.4-6.5 [facility] Comment on above: Performed By: #### C BC #### [facility] [address] [address] [address] Rosa Tran Neutrophils/100 WBC (Bld) 80.8 % Critically high 43.0-75.0 [facility] Comment on above: Performed By: #### C BC #### [facility] [address] [address] [address] Rosa Tran Platelet mean volume (Bld) [Entitic vol] 10.0 fL Normal 9.5-13.5 [facility] Comment on above: Performed By: #### C BC #### [facility] [address] [address] [address] Rosa Tran PLT 225 103/ul Normal 150-450 [facility] Comment on above: Performed By: #### C BC #### [facility] [address] [address] [address] Rosa Tran RBC 3.89 106/ul Critically low 4.70-6.10 [facility] Comment on above: Performed By: #### C BC #### [facility] [address] [place] [address] Dr. Rosa Tran WBC 9.1 103/ul Normal 4.0-11.0 [facility] Comment on above: Performed By: #### C BC #### [facility] [address] [place] [address] Dr. Rosa Tran Covid-19 PCR ([facility])on 10-01 SARS-CoV-2 (COVID-19) RNA VIKAS+probe Ql (Unsp spec) Not detected Normal NOT DETECTED [facility] Comment on above: Result Comment: When [...] for this test is supported by the [place] of Health and Human Service's declaration that [...] longer be used). Performed By: #### C VDTB #### [facility] [address] [place] [address] Dr. Rosa Tran DRUG SCREEN RAPID (URINE)on 10-11-2022 AMP Negative Normal NEGATIVE [facility] Comment on above: Performed By: #### C VDTBH #### [facility] [address] [place] [address] Dr. Rosa Tran BAR Negative Normal NEGATIVE [facility] Comment on above: Performed By: #### C VDTBH #### [facility] [address] [place] [address] Dr. Rosa Tran BUP Negative Normal NEGATIVE [facility] Comment on above: Performed By: #### C VDTBH #### [facility] [address] [place] [address] Dr. Rosa Tran BZO Negative Normal NEGATIVE [facility] Comment on above: Performed By: #### C VDTBH #### [facility] [address] [place] [address] Dr. Rosa Tran JOSE LUIS Negative Normal NEGATIVE [facility] Comment on above: Performed By: #### C VDTBH #### [facility] [address] [place] [address] Dr. Rosa Tran CUT-OFFS SEE BELOW Normal [facility] Comment on above: Result Comment: AMP (Amphetamine): [...] ng/mL Performed By: #### C VDTBH #### [facility] [address] [place] [address] Dr. Rosa Tran DRUG CUT HEADER DRUG CLASS TEST SYST EM CUT-OFF CONCENTRATIONS ARE FOLLOWS: Normal [facility] Comment on above: Performed By: #### C VDTBH #### [facility] [address] [place] [address] Dr. Rosa Tran mAMP Negative Normal NEGATIVE [facility] Comment on above: Performed By: #### C VDTBH #### [facility] [address] [place] [address] Dr. Rosa Tran MTD Negative Normal NEGATIVE [facility] Comment on above: Performed By: #### C VDTBH #### [facility] [address] [place] [address] Dr. Rosa Tran OPI Negative Normal NEGATIVE [facility] Comment on above: Performed By: #### C VDTBH #### [facility] [address] [address] [address] Rosa Tran OXY Negative Normal NEGATIVE [facility] Comment on above: Performed By: #### C VDTBH #### [facility] [address] [address] [address] Rosa Tran PCP Negative Normal NEGATIVE [facility] Comment on above: Performed By: #### C VDTBH #### [facility] [address] [address] [address] Rosa Tran PPX Negative Normal NEGATIVE [facility] Comment on above: Performed By: #### C VDTBH #### [facility] [address] [place] [address] Dr. Rosa Tran TCA Positive Abnormal NEGATIVE [facility] Comment on above: Performed By: #### C VDTBH #### [facility] [address] [place] [address] Dr. Rosa Tran THC Positive Abnormal NEGATIVE [facility] Comment on above: Performed By: #### C VDTBH #### [facility] [address] [place] [address] Dr. Rosa Tran LACTATE/LACTIC ACIDon 2022 Lactate [Moles/Vol] 1.4 mmol/L Normal 0.4-2.0 [facility] Comment on above: Performed By: #### C VDTBH #### [facility] [address] [place] [address] Dr. Rosa Tran LIPASEon 10-11-2022 Lipase [Catalytic activity/Vol] 56.0 U/L Critically low 73.0-393.0 [facility] Comment on above: Performed By: #### C MP, LIPA ####[facility] [address] [address]Dr. oRsa Tran PROF 14(COMP METB)on 023 Albumin [Mass/Vol] 3.5 g/dL Normal 3.4-5.0 [facility] Comment on above: Performed By: #### C MP, LIPA ####[facility] [address] [phone]. Rosa Tran Albumin/Globulin [Mass ratio] 1.2 {ratio} Normal [facility] Comment on above: Performed By: #### C MP, LIPA ####[facility] [address] [phone]. Rosa Tran ALP [Catalytic activity/Vol] 72 U/L Normal 46-116 [facility] Comment on above: Performed By: #### C MP, LIPA ####[facility] [address] [phone]. Rosa Tran ALT [Catalytic activity/Vol] 27 U/L Normal 16-63 [facility] Comment on above: Performed By: #### C MP, LIPA ####[facility] [address] [address]Dr. Rosa Tran Anion gap [Moles/Vol] 11.9 mmol/L Normal [facility] Comment on above: Performed By: #### C MP, LIPA ####[facility] [address] [address]Dr. Rosa Tran AST [Catalytic activity/Vol] 22 U/L Normal 15-37 [facility] Comment on above: Performed By: #### C MP, LIPA ####[facility] [address] [phone]. Rosa Tran Bilirubin [Mass/Vol] 0.3 mg/dL Normal 0.2-1.0 [facility] Comment on above: Performed By: #### C MP, LIPA ####[facility] [address] [phone]. Rosa Tran Calcium [Mass/Vol] 8.5 mg/dL Normal 8.5-10.1 [facility] Comment on above: Performed By: #### C MP, LIPA ####[facility] [address] [phone]. Rosa Tran Chloride [Moles/Vol] 108 mmol/L Critically high 98-107 [facility] Comment on above: Performed By: #### C MP, LIPA ####[facility] [address] [phone]. Rosa Tran CO2 [Moles/Vol] 26.9 mmol/L Normal 21.0-32.0 [facility] Comment on above: Performed By: #### C MP, LIPA ####[facility] [address] [place] [phone]. oRsa Tran Creatinine [Mass/Vol] 0.69 mg/dL Critically low 0.70-1.30 [facility] Comment on above: Performed By: #### C MP, LIPA ####[facility] [address] [address]Dr. Rosa Tran EGFR-AF MOSOTHO >60 Normal >=60 [facility] Comment on above: Performed By: #### C MP, LIPA ####[facility] [address] [place] [address]Dr. Rosa Tran EGFR-NON AF MOSOTHO >60 Normal >=60 [facility] Comment on above: Performed By: #### C MP, LIPA ####[facility] [address] [address]Dr. Rosa Tran Globulin (S) [Mass/Vol] 2.9 g/dL Normal [facility] Comment on above: Performed By: #### C MP, LIPA ####[facility] [address] [address]Dr. Rosa Tran Glucose [Mass/Vol] 113 mg/dL Critically high 74-106 [facility] Comment on above: Performed By: #### C MP, LIPA ####[facility] [address] [address]Dr. Rosa Tran Potassium [Moles/Vol] 3.8 mmol/L Normal 3.5-5.1 [facility] Comment on above: Performed By: #### C MP, LIPA ####[facility] [address] [address]Dr. Rosa Tran Protein [Mass/Vol] 6.4 g/dL Normal 6.4-8.2 [facility] Comment on above: Performed By: #### C MP, LIPA ####[facility] [address] [address]DrArgelia Tran Sodium [Moles/Vol] 143 mmol/L Normal 136-145 [facility] Comment on above: Performed By: #### C MP, LIPA ####[facility] [address] [place] [address]DrArgelia Tran Urea nitrogen [Mass/Vol] 8.0 mg/dL Normal 7.0-18.0 [facility] Comment on above: Performed By: #### C LEYDI, LIPA ####[facility] [address] [place] [address]DrArgelia Tran Urea nitrogen/Creatinin e [Mass ratio] 11.6 mg/mg Normal [facility] Comment on above: Performed By: #### C LEYDI, LIPA ####[facility] [address] [place] [address]DrArgelia Tran Albumin [Mass/Vol] 3.2 g/dL Critically low 3.4-5.0 [facility] Comment on above: Performed By: #### C VDTBH #### [facility] [address] [place] [address] Dr. Rosa Tran Albumin/Globulin [Mass ratio] 1.2 {ratio} Normal [facility] Comment on above: Performed By: #### C VDTBH #### [facility] [address] [address] [address] Rosa Tran ALP [Catalytic activity/Vol] 75 U/L Normal 46-116 [facility] Comment on above: Performed By: #### C VDTBH #### [facility] [address] [address] [address] Rosa Tran ALT [Catalytic activity/Vol] 24 U/L Normal 16-63 [facility] Comment on above: Performed By: #### C VDTBH #### [facility] [address] [address] [address] Rosa Tran Anion gap [Moles/Vol] 10.7 mmol/L Normal [facility] Comment on above: Performed By: #### C VDTBH #### [facility] [address] [place] [address] Dr. Rosa Tran AST [Catalytic activity/Vol] 18 U/L Normal 15-37 [facility] Comment on above: Performed By: #### C VDTBH #### [facility] [address] [place] [address] Dr. Rosa Tran Bilirubin [Mass/Vol] 0.4 mg/dL Normal 0.2-1.0 [facility] Comment on above: Performed By: #### C VDTBH #### [facility] [address] [place] [address] Dr. Rosa Tran Calcium [Mass/Vol] 8.2 mg/dL Critically low 8.5-10.1 [facility] Comment on above: Performed By: #### C VDTBH #### [facility] [address] [place] [address] Dr. Rosa Tran Chloride [Moles/Vol] 106 mmol/L Normal 98-107 [facility] Comment on above: Performed By: #### C VDTBH #### [facility] [address] [place] [address] Dr. Rosa Tran CO2 [Moles/Vol] 24.8 mmol/L Normal 21.0-32.0 [facility] Comment on above: Performed By: #### C VDTBH #### [facility] [address] [place] [address] Dr. Rosa Tran Creatinine [Mass/Vol] 0.74 mg/dL Normal 0.70-1.30 [facility] Comment on above: Performed By: #### C VDTBH #### [facility] [address] [place] [address] Dr. Rosa Tran EGFR-AF MOSOTHO >60 Normal >=60 [facility] Comment on above: Performed By: #### C VDTBH #### [facility] [address] [place] [address] Dr. Rosa Tran EGFR-NON AF MOSOTHO >60 Normal >=60 [facility] Comment on above: Performed By: #### C VDTBH #### [facility] [address] [address] [address] Rosa Tran Globulin (S) [Mass/Vol] 2.7 g/dL Normal [facility] Comment on above: Performed By: #### C VDTBH #### [facility] [address] [address] [address] Rosa Tran Glucose [Mass/Vol] 111 mg/dL Critically high 74-106 [facility] Comment on above: Performed By: #### C VDTBH #### [facility] [address] [address] [address] Rosa Tran Potassium [Moles/Vol] 3.5 mmol/L Normal 3.5-5.1 [facility] Comment on above: Performed By: #### C VDTBH #### [facility] [address] [address] [address] Rosa Tran Protein [Mass/Vol] 5.9 g/dL Critically low 6.4-8.2 [facility] Comment on above: Performed By: #### C VDTBH #### [facility] [address] [address] [address] Rosa Tran Sodium [Moles/Vol] 138 mmol/L Normal 136-145 [facility] Comment on above: Performed By: #### C VDTBH #### [facility] [address] [place] [address] Dr. Rosa Tran Urea nitrogen [Mass/Vol] 9.0 mg/dL Normal 7.0-18.0 [facility] Comment on above: Performed By: #### C VDTBH #### [facility] [address] [address] [address] Rosa Tran Urea nitrogen/Creatinin e [Mass ratio] 12.2 mg/mg Normal [facility] Comment on above: Performed By: #### C VDTBH #### [facility] [address] [place] [address] Dr. Rosa Tran AMYLASEon 10-10-2022 Amylase [Catalytic activity/Vol] 75 U/L Normal 25-115 [facility] Comment on above: Performed By: #### A MY, CMP, LIPA ####[facility] [address] [place] [phone]. Rosa Tran CBC AUTO DIFFon 10-10-2022 BASO # 0.1 103/ul Normal 0.0-0.1 [facility] Comment on above: Performed By: #### C BC #### [facility] [address] [address] [address] Rosa Tran Basophils/100 WBC (Bld) 0.5 % Normal 0.2-2.0 [facility] Comment on above: Performed By: #### C BC #### [facility] [address] [address] [address] Rosa Tran EO # 0.2 103/ul Normal 0.0-0.7 [facility] Comment on above: Performed By: #### C BC #### [facility] [address] [address] [address] Rosa Tran Eosinophils/100 WBC (Bld) 1.4 % Normal 0.9-7.0 [facility] Comment on above: Performed By: #### C BC #### [facility] [address] [address] [address] Rosa Tran Erythrocyte distribution width (RBC) [Ratio] 13.2 % Normal 11.0-15.0 [facility] Comment on above: Performed By: #### C BC #### [facility] [address] [address] [address] Rosa Tran Hematocrit (Bld) [Volume fraction] 42.7 % Normal 42.0-54.0 [facility] Comment on above: Performed By: #### C BC #### [facility] [address] [address] [address] Rosa Tran Hemoglobin (Bld) [Mass/Vol] 14.5 g/dL Normal 14.0-18.0 [facility] Comment on above: Performed By: #### C BC #### [facility] [address] [place] [address] Dr. Rosa Tran IG # 0.03 10e3/ul Normal 0.00-0.03 [facility] Comment on above: Performed By: #### C BC #### [facility] [address] [place] [address] Dr. Rosa Tran IG % 0.2 % Normal 0.0-0.5 [facility] Comment on above: Performed By: #### C BC #### [facility] [address] [place] [address] Dr. Rosa Tran LYMPH # 2.0 103/ul Normal 1.2-3.8 [facility] Comment on above: Performed By: #### C BC #### [facility] [address] [place] [address] Dr. oRsa Tran Lymphocytes/100 WBC (Bld) 16.1 % Critically low 20.5-60.0 [facility] Comment on above: Performed By: #### C BC #### [facility] [address] [place] [address] Dr. Rosa Tran MANUAL DIFF REQ NO Normal [facility] Comment on above: Performed By: #### C BC #### [facility] [address] [place] [address] Dr. Rosa Tran MCH (RBC) [Entitic mass] 30.4 pg Normal 25.9-34.0 [facility] Comment on above: Performed By: #### C BC #### [facility] [address] [place] [address] Dr. Rosa Tran MCHC (RBC) [Mass/Vol] 34.0 g/dL Normal 29.9-35.2 [facility] Comment on above: Performed By: #### C BC #### [facility] [address] [place] [address] Dr. Rosa Tran MCV (RBC) [Entitic vol] 89.5 fL Normal 80.0-94.0 [facility] Comment on above: Performed By: #### C BC #### [facility] [address] [place] [address] Dr. Rosa Tran MONO # 0.6 103/ul Normal 0.3-0.8 [facility] Comment on above: Performed By: #### C BC #### [facility] [address] [place] [address] Dr. Rosa Tran Monocytes/100 WBC (Bld) 4.6 % Normal 1.7-12.0 [facility] Comment on above: Performed By: #### C BC #### [facility] [address] [place] [address] Dr. Rosa Tran NEUT # 9.7 103/ul Critically high 1.4-6.5 [facility] Comment on above: Performed By: #### C BC #### [facility] [address] [place] [address] Dr. Rosa Tran Neutrophils/100 WBC (Bld) 77.2 % Critically high 43.0-75.0 [facility] Comment on above: Performed By: #### C BC #### [facility] [address] [place] [address] Dr. Rosa Tran Platelet mean volume (Bld) [Entitic vol] 9.7 fL Normal 9.5-13.5 [facility] Comment on above: Performed By: #### C BC #### [facility] [address] [place] [address] Dr. Rosa Tran PLT 284 103/ul Normal 150-450 [facility] Comment on above: Performed By: #### C BC #### [facility] [address] [place] [address] Dr. Rosa Tran RBC 4.77 106/ul Normal 4.70-6.10 [facility] Comment on above: Performed By: #### C BC #### [facility] [address] [place] [address] Dr. Rosa Tran WBC 12.5 103/ul Critically high 4.0-11.0 [facility] Comment on above: Performed By: #### C BC #### [facility] [address] [place] [address] Dr. Rosa Tran [facility]on [facility]-01 SARS-CoV-2 (COVID-19) RNA VIKAS+probe Ql (Unsp spec) Not detected Normal NOT DETECTED [facility] Comment on above: Result Comment: When [...] for this test is supported by the Drill Sharpen[employer] Operator of Health and Human Service's declaration that [...] used). Performed By: #### C VDTBH #### [facility] [address] [address] [address] Rosa Tran DRUG SCREEN RAPID (URINE)on 10-10-2022 AMP Negative Normal NEGATIVE [facility] Comment on above: Performed By: #### D RUGRPD ####[facility] [address] [address]Dr. Rosa Tran BAR Negative Normal NEGATIVE [facility] Comment on above: Performed By: #### D RUGRPD ####[facility] [address] [address]Dr. Rosa Tran BUP Negative Normal NEGATIVE [facility] Comment on above: Performed By: #### D RUGRPD ####[facility] [address] [place] [address]Dr. Rosa Tran BZO Negative Normal NEGATIVE [facility] Comment on above: Performed By: #### D RUGRPD ####[facility] [address] [address]Dr. Rosa Tran JOSE LUIS Negative Normal NEGATIVE [facility] Comment on above: Performed By: #### D RUGRPD ####[facility] [address] [place], [place] [address]Dr. Rosa Tran CUT-OFFS SEE BELOW Normal [facility] Comment on above: Result Comment: AMP [...] 300 ng/mL Performed By: #### D RUGRPD ####[facility] [address] [place], [place] [address]Dr. Rosa Tran DRUG CUT HEADER DRUG CLASS TEST SYST EM CUT-OFF CONCENTRATIONS ARE FOLLOWS: Normal [facility] Comment on above: Performed By: #### D RUGRPD ####[facility] [address] [place], [place] [address]Dr. Rosa Tran mAMP Negative Normal NEGATIVE [facility] Comment on above: Performed By: #### D RUGRPD ####[facility] [address] [place], [place] [address]Dr. Rosa Tran MTD Negative Normal NEGATIVE [facility] Comment on above: Performed By: #### D RUGRPD ####[facility] [address] [place], [place] [address]Dr. Rosa Tran OPI Negative Normal NEGATIVE [facility] Comment on above: Performed By: #### D RUGRPD ####[facility] [address] [place], [place] [address]Dr. Rosa Tran OXY Negative Normal NEGATIVE [facility] Comment on above: Performed By: #### D RUGRPD ####[facility] [address] [place], [place] [address]Dr. Rosa Tran PCP Negative Normal NEGATIVE [facility] Comment on above: Performed By: #### D RUGRPD ####[facility] [address] [address]Dr. Rosa Tran PPX Negative Normal NEGATIVE [facility] Comment on above: Performed By: #### D RUGRPD ####[facility] [address] [place] [address]Dr. Rosa Tran TCA Positive Abnormal NEGATIVE [facility] Comment on above: Performed By: #### D RUGRPD ####[facility] [address] [place] [address]Dr. Rosa Tran THC Positive Abnormal NEGATIVE [facility] Comment on above: Performed By: #### D RUGRPD ####[facility] [address] [place] [address]Dr. Rosa Tran LACTATE/LACTIC ACIDon 2022 Lactate [Moles/Vol] 1.8 mmol/L Normal 0.4-2.0 [facility] Comment on above: Performed By: #### L ACT ####[facility] [address] [place] [address]Dr. Rosa Tran LIPASEon 10-10-2022 Lipase [Catalytic activity/Vol] 84.0 U/L Normal 73.0-393.0 [facility] Comment on above: Performed By: #### A MY, CMP, LIPA ####[facility] [address] [address]Dr. Rosa Tran PROF 14(COMP METB)on 023 Albumin [Mass/Vol] 4.2 g/dL Normal 3.4-5.0 [facility] Comment on above: Performed By: #### C VDTBH #### [facility] [address] [address] [address] Rosa Tran Albumin/Globulin [Mass ratio] 1.3 {ratio} Normal [facility] Comment on above: Performed By: #### C VDTBH #### [facility] [address] [address] [address] Rosa Tran ALP [Catalytic activity/Vol] 104 U/L Normal 46-116 [facility] Comment on above: Performed By: #### C VDTBH #### [facility] [address] [address] [address] Rosa Tran ALT [Catalytic activity/Vol] 32 U/L Normal 16-63 [facility] Comment on above: Performed By: #### C VDTBH #### [facility] [address] [address] [address] Rosa Tran Anion gap [Moles/Vol] 12.6 mmol/L Normal [facility] Comment on above: Performed By: #### C VDTBH #### [facility] [address] [address] [address] Rosa Tran AST [Catalytic activity/Vol] 18 U/L Normal 15-37 [facility] Comment on above: Performed By: #### C VDTBH #### [facility] [address] [place] [address] Dr. Rosa Tran Bilirubin [Mass/Vol] 0.3 mg/dL Normal 0.2-1.0 [facility] Comment on above: Performed By: #### C VDTBH #### [facility] [address] [place] [address] [address] Rosa Tran Calcium [Mass/Vol] 9.3 mg/dL Normal 8.5-10.1 [facility] Comment on above: Performed By: #### C VDTBH #### [facility] [address] [place] [address] [address] Rosa Tran Chloride [Moles/Vol] 104 mmol/L Normal 98-107 [facility] Comment on above: Performed By: #### C VDTBH #### [facility] [address] [place] [address] [address] Rosa Tran CO2 [Moles/Vol] 26.2 mmol/L Normal 21.0-32.0 [facility] Comment on above: Performed By: #### C VDTBH #### [facility] [address] [place] [address] [address] Rosa Tran Creatinine [Mass/Vol] 1.00 mg/dL Normal 0.70-1.30 [facility] Comment on above: Performed By: #### C VDTBH #### [facility] [address] [place] [address] [address] Rosa Tran EGFR-AF MOSOTHO >60 Normal >=60 [facility] Comment on above: Performed By: #### C VDTBH #### [facility] [address] [place] [address] [address] Rosa Tran EGFR-NON AF MOSOTHO >60 Normal >=60 [facility] Comment on above: Performed By: #### C VDTBH #### [facility] [address] [place] [address] [address] Rosa Tran Globulin (S) [Mass/Vol] 3.3 g/dL Normal [facility] Comment on above: Performed By: #### C VDTBH #### [facility] [address] [place] [address] Dr. Rosa Tran Glucose [Mass/Vol] 136 mg/dL Critically high 74-106 [facility] Comment on above: Performed By: #### C VDTBH #### [facility] [address] [place] [address] Dr. Rosa Tran Potassium [Moles/Vol] 3.8 mmol/L Normal 3.5-5.1 [facility] Comment on above: Performed By: #### C VDTBH #### [facility] [address] [place] [address] Dr. Rosa Tran Protein [Mass/Vol] 7.5 g/dL Normal 6.4-8.2 [facility] Comment on above: Performed By: #### C VDTBH #### [facility] [address] [place] [address] Dr. Rosa Tran Sodium [Moles/Vol] 139 mmol/L Normal 136-145 [facility] Comment on above: Performed By: #### C VDTBH #### [facility] [address] [place] [address] [address] Rosa Tran Urea nitrogen [Mass/Vol] 11.0 mg/dL Normal 7.0-18.0 [facility] Comment on above: Performed By: #### C VDTBH #### [facility] [address] [place] [address] [address] Rosa Tran Urea nitrogen/Creatinin e [Mass ratio] 11.0 mg/mg Normal [facility] Comment on above: Performed By: #### C VDTBH #### [facility] [address] [place] [address] [address] Rosa Tran XR ABD FLAT UP_PA [...] by: GUERA HUNTER Date: 2022-10-10 05:31 Normal [facility] US VENOUS DOPPLER R Jerry US VENOUS [...] by: MISAEL DENNY Date: 2022-10-07 11:01 Normal [facility] AMMONIAon 08-14-2022 Ammonia (P) [Moles/Vol] 50 umol/L Critically high 11-32 [facility] Comment on above: Performed By: #### A MM #### [facility] [address] [place] [address] [address] Rosa Tran AMYLASEon 08-14-2022 Amylase [Catalytic activity/Vol] 39 U/L Normal 25-115 [facility] Comment on above: Performed By: #### A MY, CMP, LIPA ####[facility] [address] [place] [address]Dr. Rosa Tran CBC AUTO DIFFon 08-14-2022 BASO # 0.1 103/ul Normal 0.0-0.1 [facility] Comment on above: Performed By: #### C BC ####[facility] [address] [place] [address]Dr. Rosa Tran Basophils/100 WBC (Bld) 0.7 % Normal 0.2-2.0 [facility] Comment on above: Performed By: #### C BC ####[facility] [address] [place], [place] [address]Dr. Rosa Tran EO # 0.1 103/ul Normal 0.0-0.7 [facility] Comment on above: Performed By: #### C BC ####[facility] [address] [place], [place] [address]Dr. Rosa Tran Eosinophils/100 WBC (Bld) 0.7 % Critically low 0.9-7.0 The [facility] Comment on above: Performed By: #### C BC ####[facility] U[address] [place], [place] [address]Dr. Rosa Tran Erythrocyte distribution width (RBC) [Ratio] 13.2 % Normal 11.0-15.0 [facility] Comment on above: Performed By: #### C BC ####[facility] F[address] [place], [place] [address]Dr. Rosa Tran Hematocrit (Bld) [Volume fraction] 33.1 % Critically low 42.0-54.0 The [facility] Comment on above: Performed By: #### C BC ####[facility] [address] [place], [place] [address]Dr. Rosa Tran Hemoglobin (Bld) [Mass/Vol] 11.2 g/dL Critically low 14.0-18.0 The [facility] Comment on above: Performed By: #### C BC ####[facility] Ulvogxt[address] [place], [place] [address]Dr. Rosa Tran IG # 0.02 10e3/ul Normal 0.00-0.03 [facility] Comment on above: Performed By: #### C BC ####[facility] [address]qstcyt[address] [place] [address]Dr. Rosa Tran IG % 0.3 % Normal 0.0-0.5 [facility] Comment on above: Performed By: #### C BC ####[facility] B[address]mhdsqof[address] [place] [address]DrArgelia Tran LYMPH # 2.9 103/ul Normal 1.2-3.8 [facility] Comment on above: Performed By: #### C BC ####[facility] Wwcnofnhgp4836 [place] [address]DrArgelia Tran Lymphocytes/100 WBC (Bld) 39.6 % Normal 20.5-60.0 [facility] Comment on above: Performed By: #### C BC ####[facility] [address] [place], [place] [address]DrArgelia Tran MANUAL DIFF REQ NO Normal [facility] Comment on above: Performed By: #### C BC ####[facility] [address]ukdvjda[address] [place] [address]DrArgelia Tran MCH (RBC) [Entitic mass] 30.6 pg Normal 25.9-34.0 [facility] Comment on above: Performed By: #### C BC ####[facility] B[address]mlll[address] [place] [address]DrArgelia Tran MCHC (RBC) [Mass/Vol] 33.8 g/dL Normal 29.9-35.2 The [facility] Comment on above: Performed By: #### C BC ####[facility] Y[address]uiijliq[address] [place] [address]DrArgelia Tran MCV (RBC) [Entitic vol] 90.4 fL Normal 80.0-94.0 [facility] Comment on above: Performed By: #### C BC ####[facility] C[address] [place], [place] [address]DrArgelia Tran MONO # 0.6 103/ul Normal 0.3-0.8 The [facility] Comment on above: Performed By: #### C BC ####[facility] [address]rzrnqdb[address] [place] [address]Dr. Rosa Tran Monocytes/100 WBC (Bld) 7.6 % Normal 1.7-12.0 The [facility] Comment on above: Performed By: #### C BC ####[facility] V[address]vpcsnp[address] [place] [address]Dr. Rosa Tran NEUT # 3.8 103/ul Normal 1.4-6.5 [facility] Comment on above: Performed By: #### C BC ####[facility] Dzls[address]qswdx76[address] [place] [address]Dr. Rosa Tran Neutrophils/100 WBC (Bld) 51.1 % Normal 43.0-75.0 The [facility] Comment on above: Performed By: #### C BC ####[facility] Nnjyoom[address] [place], [place] [address]Dr. Rosa Tran Platelet mean volume (Bld) [Entitic vol] 9.7 fL Normal 9.5-13.5 The [facility] Comment on above: Performed By: #### C BC ####[facility] U[address]quzug[address] [place] [address]Dr. Rosa Tran PLT 208 103/ul Normal 150-450 [facility] Comment on above: Performed By: #### C BC ####[facility] H[address]pmrfrnz[address] [place] [address]Dr. Rosa Tran RBC 3.66 106/ul Critically low 4.70-6.10 The [facility] Comment on above: Performed By: #### C BC ####[facility] [address]vg[address] [place] [id number]. Rosa Tran WBC 7.3 103/ul Normal 4.0-11.0 The [facility] Comment on above: Performed By: #### C BC ####[facility] [address] [place] [id number]. Rosa Tran LIPASEon 08-14-2022 Lipase [Catalytic activity/Vol] 60.0 U/L Critically low 73.0-393.0 [facility] Comment on above: Performed By: #### A MY, CMP, LIPA ####[facility] [address]lslhfgimi[address] [place] [address]Dr. Rosa Tran PROF 14(COMP METB)on 023 Albumin [Mass/Vol] 2.9 g/dL Critically low 3.4-5.0 [facility] Comment on above: Performed By: #### A MY, CMP, LIPA ####[facility] [address]fwl[address] [place] [address]Dr. Rosa Tran Albumin/Globulin [Mass ratio] 1.2 {ratio} Normal [facility] Comment on above: Performed By: #### A MY, CMP, LIPA ####[facility] T[address]ftoavnm4[address] [place] [address]Dr. Rosa Tran ALP [Catalytic activity/Vol] 64 U/L Normal 46-116 [facility] Comment on above: Performed By: #### A MY, CMP, LIPA ####[facility] Yond[address]xuhxj[address] [place] [address]Dr. Rosa Tran ALT [Catalytic activity/Vol] 41 U/L Normal 16-63 [facility] Comment on above: Performed By: #### A MY, CMP, LIPA ####[facility] Fzivqvyprq80[address] [place] [address]Dr. Rosa Tran Anion gap [Moles/Vol] 8.7 mmol/L Normal [facility] Comment on above: Performed By: #### A MY, CMP, LIPA ####[facility] M[address]xushyqh[address] [place] [address]Dr. Rosa Tran AST [Catalytic activity/Vol] 31 U/L Normal 15-37 [facility] Comment on above: Performed By: #### A MY, CMP, LIPA ####[facility] X[address]uycqxuy[address] [place] [address]Dr. Rosa Tran Bilirubin [Mass/Vol] 0.5 mg/dL Normal 0.2-1.0 The [facility] Comment on above: Performed By: #### A MY, CMP, LIPA ####[facility] Fstcmqbhyy54[address] [place] [address]Dr. Rosa Tran Calcium [Mass/Vol] 8.3 mg/dL Critically low 8.5-10.1 Th e [facility] Comment on above: Performed By: #### A MY, CMP, LIPA ####[facility] [address]zjdewroxy[address] [place], [place] [address]Dr. Rosa Tran Chloride [Moles/Vol] 110 mmol/L Critically high 98-107 [facility] Comment on above: Performed By: #### A MY, CMP, LIPA ####[facility] Cuylpdjgfl[address] [place], [place] [address]Dr. Rosa Tran CO2 [Moles/Vol] 27.0 mmol/L Normal 21.0-32.0 The [facility] Comment on above: Performed By: #### A MY, CMP, LIPA ####[facility] Kfdcmbzxt[address] [place], [place] [address]Dr. Rosa Tran Creatinine [Mass/Vol] 0.77 mg/dL Normal 0.70-1.30 The [facility] Comment on above: Performed By: #### A MY, CMP, LIPA ####[facility] Zhombozhey[address] [place], [place] [address]Dr. Rosa Tran EGFR-AF MOSOTHO >60 Normal >=60 [facility] Comment on above: Performed By: #### A MY, CMP, LIPA ####[facility] [address]iqxdbuzkz[address] [place], [place] [address]Dr. Rosa Tran EGFR-NON AF MOSOTHO >60 Normal >=60 The [facility] Comment on above: Performed By: #### A MY, CMP, LIPA ####[facility] Ajicdvxwwx[address] [place], [place] [address]Dr. Rosa Tran Globulin (S) [Mass/Vol] 2.4 g/dL Normal [facility] Comment on above: Performed By: #### A MY, CMP, LIPA ####[facility] Fxbueafecz[address] [place], [place] [address]Dr. Rosa Tran Glucose [Mass/Vol] 128 mg/dL Critically high 74-106 [facility] Comment on above: Performed By: #### A MY, CMP, LIPA ####[facility] V[address]alpxbx4[address] [place] [address]Dr. Robynyoselin Tran Potassium [Moles/Vol] 3.6 mmol/L Normal 3.5-5.1 [facility] Comment on above: Performed By: #### A MY, CMP, LIPA ####[facility] Rxcrngwiyy[address]47 [place] [address]Dr. Rosa Tran Protein [Mass/Vol] 5.3 g/dL Critically low 6.4-8.2 Th [facility] Comment on above: Performed By: #### A MY, CMP, LIPA ####[facility] Ytvwbdqxng25[address] [place] [address]Dr. Rosa Tran Sodium [Moles/Vol] 142 mmol/L Normal 136-145 [facility] Comment on above: Performed By: #### A MY, CMP, LIPA ####[facility] X[address]feplyxh[address]65 [place] [address]Dr. Rosa Tran Urea nitrogen [Mass/Vol] 6.0 mg/dL Critically low 7.0-18.0 [facility] Comment on above: Performed By: #### A MY, CMP, LIPA ####[facility] Pvsxciivkc[address] [place] [address]Dr. Rosa Tran Urea nitrogen/Creatinin e [Mass ratio] 7.8 mg/mg Normal [facility] Comment on above: Performed By: #### A MY, CMP, LIPA ####[facility] Z[address]rosmexrq[address] [place] [address]Dr. Rosa Tran AMMONIAon 08-13-2022 Ammonia (P) [Moles/Vol] 37 umol/L Critically high 11-32 [facility] Comment on above: Performed By: #### C VDTBH #### [facility] [address] [place] [address] [address] Rosa Tran AMYLASEon 08-13-2022 Amylase [Catalytic activity/Vol] 42 U/L Normal 25-115 The [facility] Comment on above: Performed By: #### A MY, LIPA, CMP ####[facility] [address]xvger[address] [place] [address]Dr. Rosa Tran CBC AUTO DIFFon 08-13-2022 BASO # 0.0 103/ul Normal 0.0-0.1 The [facility] Comment on above: Performed By: #### C VDTBH #### [facility] [address] [place] [address] [address] Rosa Tran Basophils/100 WBC (Bld) 0.3 % Normal 0.2-2.0 The [facility] Comment on above: Performed By: #### C VDTBH #### [facility] [address] [place] [address] Dr. Rosa Tran EO # 0.0 103/ul Normal 0.0-0.7 [facility] Comment on above: Performed By: #### C VDTBH #### [facility] [address] [place] [address] Dr. Rosa Tran Eosinophils/100 WBC (Bld) 0.1 % Critically low 0.9-7.0 [facility] Comment on above: Performed By: #### C VDTBH #### [facility] [address] [place] [address] Dr. Rosa Tran Erythrocyte distribution width (RBC) [Ratio] 13.2 % Normal 11.0-15.0 [facility] Comment on above: Performed By: #### C VDTBH #### [facility] [address] [place] [address] Dr. Rosa Tran Hematocrit (Bld) [Volume fraction] 32.5 % Critically low 42.0-54.0 [facility] Comment on above: Performed By: #### C VDTBH #### [facility] [address] [place] [address] Dr. Rosa Tran Hemoglobin (Bld) [Mass/Vol] 11.3 g/dL Critically low 14.0-18.0 [facility] Comment on above: Performed By: #### C VDTBH #### [facility] [address] [place] [address] Dr. Rosa Tran IG # 0.02 10e3/ul Normal 0.00-0.03 [facility] Comment on above: Performed By: #### C VDTBH #### [facility] [address] [place] [address] Dr. Rosa Tran IG % 0.3 % Normal 0.0-0.5 [facility] Comment on above: Performed By: #### C VDTBH #### [facility] [address] [place] [address] Dr. Rosa Tran LYMPH # 1.8 103/ul Normal 1.2-3.8 [facility] Comment on above: Performed By: #### C VDTBH #### [facility] [address] [place] [address] Dr. Rosa Tran Lymphocytes/100 WBC (Bld) 23.0 % Normal 20.5-60.0 [facility] Comment on above: Performed By: #### C VDTBH #### [facility] [address] [place] [address] Dr. Rosa Tran MANUAL DIFF REQ NO Normal [facility] Comment on above: Performed By: #### C VDTBH #### [facility] [address] [place] [address] Dr. Rosa Tran MCH (RBC) [Entitic mass] 31.5 pg Normal 25.9-34.0 [facility] Comment on above: Performed By: #### C VDTBH #### [facility] [address] [place] [address] Dr. Rosa Tran MCHC (RBC) [Mass/Vol] 34.8 g/dL Normal 29.9-35.2 [facility] Comment on above: Performed By: #### C VDTBH #### [facility] [address] [place] [address] Dr. Rosa Tran MCV (RBC) [Entitic vol] 90.5 fL Normal 80.0-94.0 [facility] Comment on above: Performed By: #### C VDTBH #### [facility] [address] [place] [address] [address] Rosa Tran MONO # 0.5 103/ul Normal 0.3-0.8 [facility] Comment on above: Performed By: #### C VDTBH #### [facility] [address] [place] [address] [address] Rosa Tran Monocytes/100 WBC (Bld) 6.8 % Normal 1.7-12.0 [facility] Comment on above: Performed By: #### C VDTBH #### [facility] [address] [place] [address] Dr. Rosa Tran NEUT # 5.4 103/ul Normal 1.4-6.5 [facility] Comment on above: Performed By: #### C VDTBH #### [facility] [address] [place] [address] Dr. Rosa Tran Neutrophils/100 WBC (Bld) 69.5 % Normal 43.0-75.0 [facility] Comment on above: Performed By: #### C VDTBH #### [facility] [address] [place] [address] Dr. Rosa Tran Platelet mean volume (Bld) [Entitic vol] 9.9 fL Normal 9.5-13.5 [facility] Comment on above: Performed By: #### C VDTBH #### [facility] [address] [place] [address] Dr. Rosa Tran PLT 197 103/ul Normal 150-450 [facility] Comment on above: Performed By: #### C VDTBH #### [facility] [address] [place] [address] Dr. Rosa Tran RBC 3.59 106/ul Critically low 4.70-6.10 [facility] Comment on above: Performed By: #### C VDTBH #### [facility] [address] [place] [address] Dr. Rosa Tran WBC 7.8 103/ul Normal 4.0-11.0 [facility] Comment on above: Performed By: #### C VDTBH #### [facility] [address] [place] [address] [address] Rosa Tran LIPASEon 08-13-2022 Lipase [Catalytic activity/Vol] 52.0 U/L Critically low 73.0-393.0 [facility] Comment on above: Performed By: #### A MY, LIPA, CMP ####[facility] [address]te[address]gfq[address] [place] [address]DrArgelia Tran PROF 14(COMP METB)on 023 Albumin [Mass/Vol] 3.3 g/dL Critically low 3.4-5.0 Th [facility] Comment on above: Performed By: #### A MY, LIPA, CMP ####[facility] Z[address]ghxzsfq12[address] [place] [address]DrArgelia Tran Albumin/Globulin [Mass ratio] 1.4 {ratio} Normal [facility] Comment on above: Performed By: #### A MY, LIPA, CMP ####[facility] Kh[address]ftwork[address] [place] [address]Dr. Rosa Tran ALP [Catalytic activity/Vol] 70 U/L Normal 46-116 [facility] Comment on above: Performed By: #### A MY, LIPA, CMP ####[facility] [address]mymsiswiy[address] [place], [place] [address]Dr. Rosa Tran ALT [Catalytic activity/Vol] 31 U/L Normal 16-63 [facility] Comment on above: Performed By: #### A MY, LIPA, CMP ####[facility] Canaxxmiyu[address] [place] [address]Dr. Rosa Tran Anion gap [Moles/Vol] 12.0 mmol/L Normal [facility] Comment on above: Performed By: #### A MY, LIPA, CMP ####[facility] Vjhqqqfesc[address] [place] [address]Dr. Rosa Tran AST [Catalytic activity/Vol] 30 U/L Normal 15-37 [facility] Comment on above: Performed By: #### A MY, LIPA, CMP ####[facility] Tbqhrubgko[address] [place] [address]Dr. Rosa Tran Bilirubin [Mass/Vol] 0.5 mg/dL Normal 0.2-1.0 [facility] Comment on above: Performed By: #### A ADRIANO MORALES, CMP ####[facility] Lergtfhwdf[address] [place] [address]Dr. Rosa Tran Calcium [Mass/Vol] 8.2 mg/dL Critically low 8.5-10.1 Th e [facility] Comment on above: Performed By: #### A ADRIANO MORALES, CMP ####[facility] [address]ss[address]wea[address] [place], [place] [address]Dr. Rosa Tran Chloride [Moles/Vol] 108 mmol/L Critically high 98-107 [facility] Comment on above: Performed By: #### A ADRIANO MORALES, CMP ####[facility] [address]kkifbvck[address] [place], [place] [address]Dr. Rosa Tran CO2 [Moles/Vol] 25.5 mmol/L Normal 21.0-32.0 The [facility] Comment on above: Performed By: #### A ADRIANO MORALES, CMP ####[facility] Evfenzemqy[address] [place], [place] [address]Dr. Rosa Tran Creatinine [Mass/Vol] 0.68 mg/dL Critically low 0.70-1.30 [facility] Comment on above: Performed By: #### A ADRIANO MORALES, CMP ####[facility] Xuxghbyvnv[address] [place], [place] [address]Dr. Rosa Tran EGFR-AF MOSOTHO >60 Normal >=60 [facility] Comment on above: Performed By: #### A PAWEL MORALESA, CMP ####[facility] Gxobqadand[address] [place], [place] [address]Dr. Rosa Tran EGFR-NON AF MOSOTHO >60 Normal >=60 [facility] Comment on above: Performed By: #### A ADRIANO MORALES, CMP ####[facility] Ihlvaqngnk[address] [place], [place] [address]Dr. Rosa Tran Globulin (S) [Mass/Vol] 2.4 g/dL Normal [facility] Comment on above: Performed By: #### A MY, LIPA, CMP ####[facility] Xouaoprzkz[address] [place] [address]Dr. Rosa Tran Glucose [Mass/Vol] 109 mg/dL Critically high 74-106 T [facility] Comment on above: Performed By: #### A MY, LIPA, CMP ####[facility] Cyegrmdzhs[address] [place] [address]Dr. Rosa Tran Potassium [Moles/Vol] 3.5 mmol/L Normal 3.5-5.1 [facility] System Comment on above: Performed By: #### A MY, LIPA, CMP ####[facility] [id number] [address]Dr. Rosa Tran Protein [Mass/Vol] 5.7 g/dL Critically low 6.4-8.2 [facility] Comment on above: Performed By: #### A MY, LIPA, CMP ####[facility] [id number] [address]Dr. Rosa Tran Sodium [Moles/Vol] 142 mmol/L Normal 136-145 [facility] Comment on above: Performed By: #### A MY, LIPA, CMP ####[facility] [address] [address]Dr. Rosa Tran Urea nitrogen [Mass/Vol] 9.0 mg/dL Normal 7.0-18.0 [facility] Comment on above: Performed By: #### A MY, LIPA, CMP ####[facility] [id number] [address]Dr. Rosa Tran Urea nitrogen/Creatinin e [Mass ratio] 13.2 mg/mg Normal [facility] Comment on above: Performed By: #### A MY, LIPA, CMP ####[facility] [id number] [address]DrArgelia Tran CBC AUTO DIFFon 08-12-2022 BASO # 0.0 103/ul Normal 0.0-0.1 [facility] Comment on above: Performed By: #### C VDTB #### [facility] [address] [address] [address] Rosa Tran Basophils/100 WBC (Bld) 0.3 % Normal 0.2-2.0 [facility] Comment on above: Performed By: #### C VDTBH #### [facility] [address] [place] [address] Dr. Rosa Tran EO # 0.0 103/ul Normal 0.0-0.7 [facility] Comment on above: Performed By: #### C VDTBH #### [facility] [address] [place] [address] Dr. Rosa Tran Eosinophils/100 WBC (Bld) 0.0 % Critically low 0.9-7.0 [facility] Comment on above: Performed By: #### C VDTBH #### [facility] [address] [place] [address] Dr. Rosa Tran Erythrocyte distribution width (RBC) [Ratio] 13.0 % Normal 11.0-15.0 [facility] Comment on above: Performed By: #### C VDTBH #### [facility] [address] [place] [address] Dr. Rosa Tran Hematocrit (Bld) [Volume fraction] 36.9 % Critically low 42.0-54.0 [facility] Comment on above: Performed By: #### C VDTBH #### [facility] [address] [place] [address] Dr. Rosa Tran Hemoglobin (Bld) [Mass/Vol] 12.9 g/dL Critically low 14.0-18.0 [facility] Comment on above: Performed By: #### C VDTBH #### [facility] [address] [place] [address] Dr. Rosa Tran IG # 0.04 10e3/ul Critically high 0.00-0.[address] [facility] Comment on above: Performed By: #### C VDTBH #### [facility] [address] [place] [address] Dr. Rosa Tran IG % 0.3 % Normal 0.0-0.5 [facility] Comment on above: Performed By: #### C VDTBH #### [facility] [address] [address] [address] Rosa Tran LYMPH # 1.4 103/ul Normal 1.2-3.8 [facility] Comment on above: Performed By: #### C VDTBH #### [facility] [address] [address] [address] Rosa Tran Lymphocytes/100 WBC (Bld) 11.4 % Critically low 20.5-60.0 [facility] Comment on above: Performed By: #### C VDTBH #### [facility] [address] [place] [address] Dr. Rosa Tran MANUAL DIFF REQ NO Normal [facility] Comment on above: Performed By: #### C VDTBH #### [facility] [address] [place] [address] Dr. Rosa Tran MCH (RBC) [Entitic mass] 30.8 pg Normal 25.9-34.0 [facility] Comment on above: Performed By: #### C VDTBH #### [facility] [address] [place] [address] Dr. Rosa Tran MCHC (RBC) [Mass/Vol] 35.0 g/dL Normal 29.9-35.2 [facility] Comment on above: Performed By: #### C VDTBH #### [facility] [address] [place] [address] Dr. Rosa Tran MCV (RBC) [Entitic vol] 88.1 fL Normal 80.0-94.0 [facility] Comment on above: Performed By: #### C VDTBH #### [facility] [address] [place] [address] Dr. Rosa Tran MONO # 0.3 103/ul Normal 0.3-0.8 [facility] Comment on above: Performed By: #### C VDTBH #### [facility] [address] [place] [address] Dr. Rosa Tran Monocytes/100 WBC (Bld) 2.7 % Normal 1.7-12.0 [facility] Comment on above: Performed By: #### C VDTBH #### [facility] [address] [address] [address] Rosa Tran NEUT # 10.1 103/ul Critically high 1.4-6.5 [facility] Comment on above: Performed By: #### C VDTBH #### [facility] [address] [address] [address] Rosa Tran Neutrophils/100 WBC (Bld) 85.3 % Critically high 43.0-75.0 [facility] Comment on above: Performed By: #### C VDTBH #### [facility] [address] [address] [address] Rosa Tran Platelet mean volume (Bld) [Entitic vol] 10.2 fL Normal 9.5-13.5 [facility] Comment on above: Performed By: #### C VDTBH #### [facility] [address] [place] [address] Dr. Rosa Tran PLT 248 103/ul Normal 150-450 [facility] Comment on above: Performed By: #### C VDTBH #### [facility] [address] [place] [address] Dr. Rosa Tran RBC 4.19 106/ul Critically low 4.70-6.10 [facility] Comment on above: Performed By: #### C VDTBH #### [facility] [address] [place] [address] Dr. Rosa Tran WBC 11.8 103/ul Critically high 4.0-11.0 [facility] Comment on above: Performed By: #### C VDTBH #### [facility] [address] [place] [address] Dr. Rosa Tran CTA ABD/PELVIS WO W [...] ALIYAH LAL Date: 2022-08-12 08:48 Normal [facility]on 08-03 SARS-CoV-2 (COVID-19) RNA VIKAS+probe Ql (Unsp spec) Not detected Normal NOT DETECTED [facility] Comment on above: Result Comment: When [...] for this test is supported by the [place] [employer] and Human Service's declaration that [...] used). Performed By: #### C VDTBH #### [facility] [address] [place] [address] Dr. Rosa Tran DRUG SCREEN RAPID (URINE)on 08-12-2022 AMP Negative Normal NEGATIVE [facility] Comment on above: Performed By: #### D RUGRPD #### [facility] [address] [place] [address] Dr. Rosa Tran BAR Negative Normal NEGATIVE [facility] Comment on above: Performed By: #### D RUGRPD #### [facility] [address] [place] [address] Dr. Rosa Tran BUP Negative Normal NEGATIVE [facility] Comment on above: Performed By: #### D RUGRPD #### [facility] [address] [place] [address] Dr. Rosa Tran BZO Negative Normal NEGATIVE [facility] Comment on above: Performed By: #### D RUGRPD #### [facility] [address] [place] [address] Dr. Rosa Tran JOSE LUIS Negative Normal NEGATIVE [facility] Comment on above: Performed By: #### D RUGRPD #### [facility] [address] [place] [address] Dr. Rosa Tran CUT-OFFS SEE BELOW Normal [facility] Comment on above: Result Comment: AMP [...] ng/mL Performed By: #### D RUGRPD #### [facility] [address] [place] [address] Dr. Rosa Tran DRUG CUT HEADER DRUG CLASS TEST SYST EM CUT-OFF CONCENTRATIONS ARE FOLLOWS: Normal [facility] Comment on above: Performed By: #### D RUGRPD #### [facility] [address] [place] [address] Dr. Rosa Tran mAMP Negative Normal NEGATIVE [facility] Comment on above: Performed By: #### D RUGRPD #### [facility] [address] [address] [address] Rosa Tran MTD Negative Normal NEGATIVE [facility] Comment on above: Performed By: #### D RUGRPD #### [facility] [address] [place] [address] Dr. Rosa Tran OPI Negative Normal NEGATIVE [facility] Comment on above: Performed By: #### D RUGRPD #### [facility] [address] [place] [address] Dr. Rosa Tran OXY Negative Normal NEGATIVE [facility] Comment on above: Performed By: #### D RUGRPD #### [facility] [address] [address] [address] Rosa Tran PCP Negative Normal NEGATIVE [facility] Comment on above: Performed By: #### D RUGRPD #### [facility] [address] [place] [address] Dr. Rosa Tran PPX Negative Normal NEGATIVE [facility] Comment on above: Performed By: #### D RUGRPD #### [facility] [address] [place] [address] Dr. Rosa Tran TCA Positive Abnormal NEGATIVE [facility] Comment on above: Performed By: #### D RUGRPD #### [facility] [address] [place] [address] Dr. Rosa Tran THC Positive Abnormal NEGATIVE [facility] Comment on above: Performed By: #### D RUGRPD #### [facility] [address] [address] [address] Rosa Tran LACTATE/LACTIC ACIDon 2022 Lactate [Moles/Vol] 1.1 mmol/L Normal 0.4-1.9 [facility] Comment on above: Performed By: #### L ACT ####[facility] [address] [address]Dr. Rosa Tran LIPASEon 08-12-2022 Lipase [Catalytic activity/Vol] 55.0 U/L Critically low 73.0-393.0 [facility] Comment on above: Performed By: #### C VDTBH #### [facility] [address] [place] [address] Dr. Rosa Tran PROF 14(COMP METB)on 023 Albumin [Mass/Vol] 4.0 g/dL Normal 3.4-5.0 [facility] Comment on above: Performed By: #### C VDTBH #### [facility] [address] [place] [address] Dr. Rosa Tran Albumin/Globulin [Mass ratio] 1.3 {ratio} Normal [facility] Comment on above: Performed By: #### C VDTBH #### [facility] [address] [place] [address] Dr. Rosa Tran ALP [Catalytic activity/Vol] 94 U/L Normal 46-116 [facility] Comment on above: Performed By: #### C VDTBH #### [facility] [address] [place] [address] Dr. Rosa Tran ALT [Catalytic activity/Vol] 32 U/L Normal 16-63 [facility] Comment on above: Performed By: #### C VDTBH #### [facility] [address] [place] [address] Dr. Rosa Tran Anion gap [Moles/Vol] 12.2 mmol/L Normal [facility] Comment on above: Performed By: #### C VDTBH #### [facility] [address] [place] [address] Dr. Rosa Tran AST [Catalytic activity/Vol] 23 U/L Normal 15-37 [facility] Comment on above: Performed By: #### C VDTBH #### [facility] [address] [address] [address] Rosa Tran Bilirubin [Mass/Vol] 0.5 mg/dL Normal 0.2-1.0 [facility] Comment on above: Performed By: #### C VDTBH #### [facility] [address] [place] [address] Dr. Rosa Tran Calcium [Mass/Vol] 9.4 mg/dL Normal 8.5-10.1 [facility] Comment on above: Performed By: #### C VDTBH #### [facility] [address] [place] [address] Dr. Rosa Tran Chloride [Moles/Vol] 106 mmol/L Normal 98-107 [facility] Comment on above: Performed By: #### C VDTBH #### [facility] [address] [place] [address] Dr. Rosa Tran CO2 [Moles/Vol] 25.3 mmol/L Normal 21.0-32.0 [facility] Comment on above: Performed By: #### C VDTBH #### [facility] [address] [place] [address] Dr. Rosa Tran Creatinine [Mass/Vol] 0.76 mg/dL Normal 0.70-1.30 [facility] Comment on above: Performed By: #### C VDTBH #### [facility] [address] [place] [address] Dr. Rosa Tran EGFR-AF [place] >60 Normal >=60 [facility] Comment on above: Performed By: #### C VDTBH #### [facility] [address] [place] [address] Dr. Rosa Tran EGFR-NON AF [place] >60 Normal >=60 [facility] Comment on above: Performed By: #### C VDTBH #### [facility] [address] [place] [address] Dr. Rosa Tran Globulin (S) [Mass/Vol] 3.0 g/dL Normal [facility] Comment on above: Performed By: #### C VDTBH #### [facility] [address] [address] [address] Rosa Tran Glucose [Mass/Vol] 129 mg/dL Critically high 74-106 [facility] Comment on above: Performed By: #### C VDTBH #### [facility] [address] [place] [address] Dr. Rosa Tran Potassium [Moles/Vol] 3.5 mmol/L Normal 3.5-5.1 [facility] Comment on above: Performed By: #### C VDTBH #### [facility] [address] [place] [address] Dr. Rosa Tran Protein [Mass/Vol] 7.0 g/dL Normal 6.4-8.2 [facility] Comment on above: Performed By: #### C VDTBH #### [facility] [address] [place] [address] Dr. Rosa Tran Sodium [Moles/Vol] 140 mmol/L Normal 136-145 [facility] Comment on above: Performed By: #### C VDTBH #### [facility] [address] [place] [address] Dr. Rosa Tran Urea nitrogen [Mass/Vol] 11.0 mg/dL Normal 7.0-18.0 [facility] Comment on above: Performed By: #### C VDTBH #### [facility] [address] [place] [address] Dr. Rosa Tran Urea nitrogen/Creatinin e [Mass ratio] 14.5 mg/mg Normal [facility] Comment on above: Performed By: #### C VDTBH #### [facility] [address] [place] [address] Dr. Rosa Tran AMYLASEon 08-11-2022 Amylase [Catalytic activity/Vol] 67 U/L Normal 25-115 [facility] Comment on above: Performed By: #### C VDTBH #### [facility] [address] [place] [address] Dr. Rosa Tran CBC AUTO DIFFon 08-11-2022 BASO # 0.1 103/ul Normal 0.0-0.1 [facility] Comment on above: Performed By: #### C VDTBH #### [facility] [address] [place] [address] Dr. Rosa Tran Basophils/100 WBC (Bld) 0.4 % Normal 0.2-2.0 [facility] Comment on above: Performed By: #### C VDTBH #### [facility] [address] [place] [address] Dr. Rosa Tran EO # 0.1 103/ul Normal 0.0-0.7 [facility] Comment on above: Performed By: #### C VDTBH #### [facility] [address] [place] [address] Dr. Rosa Tran Eosinophils/100 WBC (Bld) 0.6 % Critically low 0.9-7.0 [facility] Comment on above: Performed By: #### C VDTBH #### [facility] [address] [place] [address] Dr. Rosa Tran Erythrocyte distribution width (RBC) [Ratio] 12.9 % Normal 11.0-15.0 [facility] Comment on above: Performed By: #### C VDTBH #### [facility] [address] [place] [address] Dr. Rosa Tran Hematocrit (Bld) [Volume fraction] 38.4 % Critically low 42.0-54.0 [facility] Comment on above: Performed By: #### C VDTBH #### [facility] [address] [place] [address] Dr. Rosa Tran Hemoglobin (Bld) [Mass/Vol] 13.1 g/dL Critically low 14.0-18.0 [facility] Comment on above: Performed By: #### C VDTBH #### [facility] [address] [place] [address] Dr. Rosa Tran IG # 0.05 10e3/ul Critically high 0.00-0.[address] [facility] Comment on above: Performed By: #### C VDTBH #### [facility] [address] [place] [address] Dr. Rosa Tran IG % 0.4 % Normal 0.0-0.5 [facility] Comment on above: Performed By: #### C VDTBH #### [facility] [address] [place] [address] Dr. Rosa Tran LYMPH # 1.6 103/ul Normal 1.2-3.8 [facility] Comment on above: Performed By: #### C VDTBH #### [facility] [address] [place] [address] Dr. Rosa Tran Lymphocytes/100 WBC (Bld) 12.2 % Critically low 20.5-60.0 [facility] Comment on above: Performed By: #### C VDTBH #### [facility] [address] [place] [address] Dr. Rosa Tran MCH (RBC) [Entitic mass] 30.3 pg Normal 25.9-34.0 [facility] Comment on above: Performed By: #### C VDTBH #### [facility] [address] [place] [address] Dr. Rosa Tran MCHC (RBC) [Mass/Vol] 34.1 g/dL Normal 29.9-35.2 [facility] Comment on above: Performed By: #### C VDTBH #### [facility] [address] [place] [address] Dr. Rosa Tran MCV (RBC) [Entitic vol] 88.9 fL Normal 80.0-94.0 [facility] Comment on above: Performed By: #### C VDTBH #### [facility] [address] [place] [address] Dr. Rosa Tran MONO # 0.6 103/ul Normal 0.3-0.8 [facility] Comment on above: Performed By: #### C VDTBH #### [facility] [address] [place] [address] Dr. Rosa Tran Monocytes/100 WBC (Bld) 4.6 % Normal 1.7-12.0 [facility] Comment on above: Performed By: #### C VDTBH #### [facility] [address] [place] [address] Dr. Rosa Tran NEUT # 11.0 103/ul Critically high 1.4-6.5 [facility] Comment on above: Performed By: #### C VDTBH #### [facility] [address] [place] [address] Dr. Rosa Tran Neutrophils/100 WBC (Bld) 81.8 % Critically high 43.0-75.0 [facility] Comment on above: Performed By: #### C VDTBH #### [facility] [address] [place] [address] Dr. Rosa Tran Platelet mean volume (Bld) [Entitic vol] 10.0 fL Normal 9.5-13.5 [facility] Comment on above: Performed By: #### C VDTBH #### [facility] [address] [place] [address] Dr. Rosa Tran PLT 226 103/ul Normal 150-450 [facility] Comment on above: Performed By: #### C VDTBH #### [facility] [address] [place] [address] Dr. Rosa Tran RBC 4.32 106/ul Critically low 4.70-6.10 [facility] Comment on above: Performed By: #### C VDTBH #### [facility] [address] [place] [address] Dr. Rosa Tran WBC 13.4 103/ul Critically high 4.0-11.0 [facility] Comment on above: Performed By: #### C VDTBH #### [facility] [address] [place] [address] ABD/PELV W CONon 08-11-[address] ABD/PELV W CON EXAMINATION: CT ABD/ [...] MISAEL DENNY Date: 2022-08-11 08:55 Normal [facility] Covid-19 PCR (CVD[facility])on SARS-CoV-2 (COVID-19) RNA VIKAS+probe Ql (Unsp spec) Not detected Normal NOT DETECTED [facility] Comment on above: Result Comment: When [...] for this test is supported by the [place] [employer] and Human Service's declaration that [...] longer be used). Performed By: #### [facility] #### [facility] [address] [place] [address] Dr. Rosa Tran LACTATE/LACTIC ACIDon 2022 Lactate [Moles/Vol] 0.5 mmol/L Normal 0.4-1.9 [facility] Comment on above: Performed By: #### C VDTBH #### [facility] [address] [place] [address] Dr. Rosa Tran LIPASEon 08-11-2022 Lipase [Catalytic activity/Vol] 73.0 U/L Normal 73.0-393.0 [facility] Comment on above: Performed By: #### C VDTBH #### [facility] [address] [place] [address] Dr. Rosa Tran PROF 14(COMP METB)on 023 Albumin [Mass/Vol] 3.9 g/dL Normal 3.4-5.0 [facility] Comment on above: Performed By: #### C VDTBH #### [facility] [address] [place] [address] Dr. Rosa Tran ALP [Catalytic activity/Vol] 91 U/L Normal 46-116 [facility] Comment on above: Performed By: #### C VDTBH #### [facility] [address] [place] [address] Dr. Rosa Tran ALT [Catalytic activity/Vol] 34 U/L Normal 16-63 [facility] Comment on above: Performed By: #### C VDTBH #### [facility] [address] [place] [address] Dr. Rosa Tran Anion gap [Moles/Vol] 12.6 mmol/L Normal [facility] Comment on above: Performed By: #### C VDTBH #### [facility] [address] [place] [address] Dr. Rosa Tran AST [Catalytic activity/Vol] 20 U/L Normal 15-37 [facility] Comment on above: Performed By: #### C VDTBH #### [facility] [address] [place] [address] Dr. Rosa Tran Bilirubin [Mass/Vol] 0.3 mg/dL Normal 0.2-1.0 [facility] Comment on above: Performed By: #### C VDTBH #### [facility] [address] [address] [address] Rosa Tran Calcium [Mass/Vol] 9.0 mg/dL Normal 8.5-10.1 [facility] Comment on above: Performed By: #### C VDTBH #### [facility] [address] [address] [address] Rosa Tran Chloride [Moles/Vol] 105 mmol/L Normal 98-107 [facility] Comment on above: Performed By: #### C VDTBH #### [facility] [address] [address] [address] Rosa Tran CO2 [Moles/Vol] 26.9 mmol/L Normal 21.0-32.0 [facility] Comment on above: Performed By: #### C VDTBH #### [facility] [address] [address] [address] Rosa Tran Creatinine [Mass/Vol] 0.72 mg/dL Normal 0.70-1.30 [facility] Comment on above: Performed By: #### C VDTBH #### [facility] [address] [address] [address] Rosa Tran Globulin (S) [Mass/Vol] 2.9 g/dL Normal [facility] Comment on above: Performed By: #### C VDTBH #### [facility] [address] [address] [address] Rosa Tran Glucose [Mass/Vol] 125 mg/dL Critically high 74-106 [facility] Comment on above: Performed By: #### C VDTBH #### [facility] [address] [address] [address] Rosa Tran Protein [Mass/Vol] 6.8 g/dL Normal 6.4-8.2 [facility] Comment on above: Performed By: #### C VDTBH #### [facility] [address] [address] [address] Rosa Tran Sodium [Moles/Vol] 141 mmol/L Normal 136-145 [facility] Comment on above: Performed By: #### C VDTBH #### [facility] [address] [address] [address] Rosa Tran Urea nitrogen/Creatinin e [Mass ratio] 15.3 mg/mg Normal [facility] Comment on above: Performed By: #### C PENDING SALE TO [facility] #### [facility] [address] [place], [place] [address] Dr. Rosa Feliciano 04-09-2021 CNOV Office Visit (GENBMI ) ----- TIM CASTELLON ([id number]) 1990 M Date Time Provider Department 04/09/21 2:15 PM KARMA ISABEL GENI During your visit today, we recorded the [...] 09, 2021 TIME: 2:16 PM PAGER/CONTACT #: Karl Rodrigues PA-C 05/21/2021 8:57 AM Signed HISTORY [...] vein a (more content not included)... [facility] ----- TIM CASTELLON ([id number]) 1990 M Date Time Provider Department 04/09/21 MELANI BRANCH [...] Date: 04/09/2021 (None) Encounter Status:Closed by MELANI BRNACH on 04/09/21 Normal [facility] Encounters Encounter Date Encounter Type Care Provider Facility Start: 08-30-2024 End: 08-30-2024 ambulatory Mert Vu [facility] Work Phone: Start: 08-30-2024 End: 08-30-2024 Departed Referred Mert Horace DO Work Phone: [facility] Start: 08-28-2024 End: 08-28-2024 Emergency department patient visit TITUS HILARIO [facility] Start: 10-12-2022 End: 10-14-[address] ANKUSH CARROLL . Facility:[facility] Start: 10-10-2022 End: 10-11-[address] ANKUSH CARROLL . Facility:[facility] Start: 10-07-2022 End: 10-08-[address] MISAEL DENNY Facility:[facility] Start: 08-12-2022 End: 08-14-[address] ANKUSH CARROLL . Facility:[facility] Start: 08-11-2022 End: 08-11-[address] ANKUSH CARROLL . Facility:[facility] Start: 02-06-2022 End: 02-06-[address] MERT VU . Facility:[facility] Plan of Treatment Date Care Activity Detail Author Start: 08-30-2024 Bacteria identified in Urine by Culture Urine Culture [facility] Start: 08-30-2024 Urine culture [facility] Immunizations Immunization Date Immunization Notes Care Provider Sarah patten 09-10-2018 tetanus toxoid, redu marquis diphtheria toxoid, and acellular pertussis vaccine, adsorbed Mert Vu DO Work Phone: [facility] Payers Date Payer Category Payer Self-pay 1990 Unknown [id number] 2.16.84 [id number] 1990 Unknown [id number] 2.16.84 [id number] 1990 Unknown [id number] 2.16.84 [id number] 1990 Unknown [id number] 2.16.84 [id number] 1990 Unknown [id number] 2.16.84 [id number] 1990 Unknown [id number] 2.16.84 [id number] 1990 Unknown [id number] 2.16. [id number] 1959 Unknown [id number] Unknown [id number] Unknown [id number] 2.16.8 [id number] Social History Date Type Detail Facility Tobacco smoking stat [facility] Unknown if ever smoked [facility] Work Phone: Start: 08-31-2024 Sex Male (finding) [facility] Start: 1990 Sex Assigned At Male F [facility] Progress note 04-09-2021 Note Date & Type Note Facility 04-09-2021 Note HNO ID: [id number] Author: Karl Rodrigues PA-C Service: ? Author Type: Physician Cake Winder Type: Progress Notes Filed: 05/21/2021 8:57 AM [...] thru 2) gastric emptying access Gastroparesis SIGNATURE: Karl Rodrigues PA-C PATIENT NAME: Tim Castellon DATE: April 09, 2021 TIME: 2:24 PM PAGER/CONTACT #: [facility] Progress note 04-09-2021 Note Date & Type Note Facility 04-09-2021 Note HNO ID: [id number] Author: Karma Isabel MD Service: ? Author [...] 09, 2021 TIME: 2:16 PM PAGER/CONTACT #: [facility] Evaluation note Note Date & Type Note Facility Evaluation note No assessment information [facility] Work Phone: Summary Purpose Family History No Family History Records FoundNo Family History Records FoundNo Family History Records FoundNo Family History Records Found Advance Directives No Advanced Directives Records Found Advance Directive Response Recorded Date/ Time Advance Directives No February 20, 2024 12:14pm Additional Source Comments (unrecognized sect ion and content) No Status Records FoundNo Status Records FoundNo Status Records FoundNo Status Records Found INFORMATION SOURCE (unrecogn ized section and content) DATE CREATED AUTHOR 08/07/2021 [facility] DATE CREATED AUTHOR AUTHOR'S ORGANIZ ATION 10/21/2022 [facility] DATE CREATED AUTHOR AUTHOR'S ORGANIZ ATION 08/30/2024 [facility] DATE CREATED AUTHOR AUTHOR'S ORGANIZ ATION 09/01/2024 [facility] Care Teams (unrecognized sec tion and content) Team Status: Inactive Member Role Status Dates Mert Vu DO Attending Provider Active Start : August 30, 2024 End: August 30, 2024 Goals (unrecognized section and content) Goals may be documented in a n alternate section FOR RECORDS PERTAINING TO PATIENTS WHO ARE [...] BE BASED ON THE PRIMARY CLINICAL RECORDS. [employer] provides no warranty or guarantee of the accuracy or completeness of information in this document.
--- NOTE | 2024-09-14 11:30 | ED_ITS ---
HPI - Dental/Oral General Chief complaint: Dental/Oral Stated complaint: DENTAL PAIN Time Seen by Provider: 09/14/24 11:23 Source: patient Mode of arrival: walk-in Limitations: no limitations History of Present Illness HPI Narrative: The patient comes to the ER with the few days history of left-sided dental pain he mentioned that he already have a history of dental procedure done before and he have a history of multiple teeth problem, he denies any other complaints Related Data Home Medications ?Medication ?Instructions ?Recorded ?Confirmed amitriptyline 50 mg tablet 50 mg PO BEDTIME 03/13/23 09/14/24 Previous Rx's ?Medication ?Instructions ?Recorded ondansetron 4 mg disintegrating 4 mg PO Q6H PRN nausea and 03/27/24 tablet vomiting #30 tabs promethazine 25 mg rectal 25 mg WI Q6H PRN nausea and 08/30/24 suppository vomiting #6 ea amoxicillin 875 mg-potassium 1 tab PO BID #14 tabs 09/14/24 clavulanate 125 mg tablet famotidine 20 mg tablet (Pepcid) 20 mg PO BID #10 tabs 09/14/24 ibuprofen 600 mg tablet 600 mg PO Q8H PRN pain #20 tabs 09/14/24 Allergies Allergy/AdvReac Type Severity Reaction Status Date / Time No Known Drug Allergies Allergy Verified 09/14/24 11:19 Review of Systems ROS Status of ROS 10 or more systems reviewed and unremark able except as noted in history and below PFSH PFSH Medical History (Updated 09/14/24 @ 11:28 by Lindsey Mcfadden MD) Cyclic vomiting syndrome ?R11.15 - Cyclical vomiting syndrome unrelated to migraine (ICD-10) Vomiting ?R11.10 - Vomiting, unspecified (ICD-10) Cannabinoid hyperemesis syndrome ?R11.2 - Nausea with vomiting, unspecified (ICD-10) ?F12.90 - Cannabis use, unspecified, uncomplicated (ICD-10) Superior mesenteric artery syndrome ?K55.1 - Chronic vascular disorders of intestine (ICD-10) Cyclic vomiting syndrome ?R11.15 - Cyclical vomiting syndrome unrelated to migraine (ICD-10) Constipation ?K59.00 - Constipation, unspecified (ICD-10) Abdominal pain ?R10.9 - Unspecified abdominal pain (ICD-10) Social History (Updated 04/13/23 @ 09:13 by Dariela Small) Within the past year, how often did you have a drink containing alcohol: never Score interpretation: A score less than 4 is consistent with normal alcohol consumption. Smoking status: Current every day smoker Non-prescribed substance use: cannabis (any form) Previous occupational history: [employer] Highest level of school completed/degree received: 10th grade Little interest or pleasure in doing things: not at all Feeling down, depressed, or hopeless: not at all Feel stressed/tense/nervous/anxious/difficulty sleeping: not at all Gender Identity: male Exam Narrative Exam Narrative: nurses notes and vital signs reviewed and patient is not hypoxic. General: Well-appearing and in no apparent distress. Skin: Warm, dry, no pallor noted. ENT: The oropharynx is normal. No pharyngeal erythema, uvular edema, tonsillar exudates, asymmetry or trismus. Uvula is midline. The patient have multiple decayed tooth including the tooth #13 and the tooth #17 that are very tender when palpated ,there is no evidence of facial asymmetry or abscess formation. Floor of the mouth is soft. No tenderness in the submental or submandibular spa ce. No tongue elevation or deviation. The patient has no evidence of periapical abscess, gingivitis, . Airway is patent. Head: Normocephalic, atraumatic. Neck: Supple, non-tender. Constitutional Vital Signs, click to edit/add: Last Vital Signs Temp 98.6 F 09/14/24 11:17 Pulse 96 H 09/14/24 11:17 Resp 20 09/14/24 11:17 BP 149/95 H 09/14/24 11:17 Pulse Ox 99 09/14/24 11:17 Course Vital Signs Vital signs: Vital Signs Temperature 98.6 F 09/14/24 11:17 Pulse Rate 96 H 09/14/24 11:17 Respiratory Rate 20 09/14/24 11:17 Blood Pressure 149/95 H 09/14/24 11:17 Pulse Oximetry 99 09/14/24 11:17 Temperature 98.6 F 09/14/24 11:17 Pulse Rate 96 H 09/14/24 11:17 Respiratory Rate 20 09/14/24 11:17 Blood Pressure 149/95 H 09/14/24 11:17 Pulse Oximetry 99 09/14/24 11:17 MDM - Dental/Oral MDM Narrative Medical decision making narrative: The patient presented to us with a dental infection mostly secondary to dental decay causing the patient pain The patient was started on Augmentin in addition to starting the patient on ibuprofen with Pepcid due to the his history of gastritis The patient is to follow up with primary care physician in next 2-3 days or to return to the emergency department should any of the signs or symptoms worsen or new symptoms develop. The patient agrees with the following Diagnosis and Treatment plan and the patient will be discharged home. Discharge Plan Discharge Chief Complaint: Dental/Oral Clinical Impression: Dental infection Patient Disposition: Home, Self-Care Time of Disposition Decision: 11:28 Condition: Good Prescriptions / Home Meds: New amoxicillin-pot clavulanate 875-125 mg tablet 1 tab PO BID Qty: 14 0RF ibuprofen 600 mg tablet 600 mg PO Q8H PRN (Reason: pain) Qty: 20 0RF famotidine [Pepcid] 20 mg tablet 20 mg PO BID Qty: 10 0RF No Action amitriptyline 50 mg tablet 50 mg PO BEDTIME ondansetron 4 mg tablet,disintegrating 4 mg PO Q6H PRN (Reason: nausea and vomiting) Qty: 30 7RF promethazine 25 mg suppository 25 mg WI Q6H PRN (Reason: nausea and vomiting) Qty: 6 0RF Print Language: British Instructions: Dental Abscess (ED), Toothache (ED) Referrals: TITUS HILARIO [Primary Care Provider] - 1 week
[2024-09-14] MEDS: BENZOCAINE 30 ML, lidocaine HCL 15 ML MM (11:39)
== END 2024-09-14 11:42 | disposition home or self-care (01) ==
PROVIDERS: Emergency Provider Emergency Medicine; PCP Nurse Practitioner Family
DX: K04.7 Periapical abscess without sinus (principal); F17.200 Nicotine dependence, unspecified, uncomplicated
CPT/HCPCS: 99284

== ENCOUNTER 2025-05-27 08:43 | Emergency (ER) | payer OTHER, SELFPAY ==
[2025-05-27 08:48] VITALS: BP 139/88; PULSE 100; TEMP 36.8; O2SAT 99; BMI 23.6
--- NOTE | 2025-05-27 09:02 | ED_ITS ---
HPI HPI - General Adult General Chief complaint: Burn/Smoke Inhalation Stated complaint: BWC BURNT HAND Time Seen by Provider: 05/27/25 08:55 Source: patient Mode of arrival: walk-in History of Present Illness HPI narrative: 34-year-old male presented to the emergency department for burn. He was at work today when he accidentally spilled sausage gravy onto his right hand. He is right-handed. It has been about 6 years since he has had a tetanus shot and this was updated today. No other injury was sustained. Related Data Home Medications ?Medication ?Instructions ?Recorded ?Confirmed amitriptyline 50 mg tablet 50 mg PO BEDTIME 03/13/23 1 07/27/24 Previous Rx's ?Medication ?Instructions ?Recorded ibuprofen 800 mg tablet 800 mg PO Q8H PRN pain #20 t abs 05/27/25 Allergies Allergy/AdvReac Type Severity Reaction Status Date / Time No Known Drug Allergies Allergy Verified 05/27/25 08:47 Opioid HPI Opioid Management Most Recent Opioid Data: Last Pain Scale 5 Today, 08:48 Last ORT Total Score 5 03/26/24, 07:51 Last ORT Risk Category Moderate Risk 03/26/24, 07:51 Ur Phencyclidine Scrn, (NEGATIVE) Negative , 09:58 Review of Systems ROS Narrative A ten point review of systems is negative except as noted above. PFSH [facility] Medical History (Updated 05/27/25 @ 09:00 by Ernesto Mathias MD) Cyclic vomiting syndrome ?R11.15 - Cyclical vomiting syndrome unrelated to migraine (ICD-10) Vomiting ?R11.10 - Vomiting, unspecified (ICD-10) Cannabinoid hyperemesis syndrome ?R11.2 - Nausea with vomiting, unspecified (ICD-10) ?F12.90 - Cannabis use, unspecified, uncomplicated (ICD-10) Superior mesenteric artery syndrome ?K55.1 - Chronic vascular disorders of intestine (ICD-10) Cyclic vomiting syndrome ?R11.15 - Cyclical vomiting syndrome unrelated to migraine (ICD-10) Constipation ?K59.00 - Constipation, unspecified (ICD-10) Abdominal pain ?R10.9 - Unspecified abdominal pain (ICD-10) Social History (Updated 04/13/23 @ 09:13 by Dariela Small) Within the past year, how often did you have a drink containing alcohol: never Score interpretation: A score less than 4 is consistent with normal alcohol consumption. Smoking status: Current every day smoker Non-prescribed substance use: cannabis (any form) Previous occupational history: [employer] Highest level of school completed/degree received: 10th grade Little interest or pleasure in doing things: not at all Feeling down, depressed, or hopeless: not at all Feel stressed/tense/nervous/anxious/difficulty sleeping: not at all Gender Identity: male Exam Narrative Exam Narrative: Nurses note and vital signs reviewed General:The patient appears well and in no apparent distress.Patient is resting comfortably on cart. Skin:Warm, dry, no pallor noted.There is first-degree burn present on his right wrist and at the base of the right thumb. No circumferential burn present. No blistering. Fingers have full range of motion. Head:Normocephalic, atraumatic Eye: Normal conjunctiva, no drainage Ears, Nose, Mouth, and Throat: oral mucosa is moist. Nares patent. Cardiovascular:Regular Rate and Rhythm Respiratory:Patient is in no distress, no accessory muscle use, lungs are clear to auscultation, no wheezing, rales or rhonchi Back:non-tender GI: Soft and nontender Musculoskeletal: No joint swelling Neurological: Awake and alert Psychiatric:Cooperative Constitutional Vital Signs, click to edit/add: Last Vital Signs Temp 98.2 F 05/27/25 08:48 Pulse 100 H 05/27/25 08:48 Resp 16 05/27/25 08:48 BP 139/88 05/27/25 08:48 Pulse Ox 99 05/27/25 08:48 O2 Del Method Room Air 05/27/25 08:48 Course Vital Signs Vital signs: Vital Signs Temperature 98.2 F 05/27/25 08:48 Pulse Rate 100 H 05/27/25 08:48 Respiratory Rate 16 05/27/25 08:48 Blood Pressure 139/88 05/27/25 08:48 Pulse Oximetry 99 05/27/25 08:48 Oxygen Delivery Method Room Air 05/27/25 08:48 Temperature 98.2 F 05/27/25 08:48 Pulse Rate 100 H 05/27/25 08:48 Respiratory Rate 16 05/27/25 08:48 Blood Pressure 139/88 05/27/25 08:48 Pulse Oximetry 99 05/27/25 08:48 Oxygen Delivery Method Room Air 05/27/25 08:48 Medical Decision Making MDM Narrative Medical decision making narrative: He has first-degree burn and bacitracin was applied. Tetanus updated and he was given ibuprofen and prescribed ibuprofen. Treatment diagnosis and follow-up were discussed with the patient. Discharge Plan Discharge Chief Complaint: Burn/Smoke Inhalation Clinical Impression: First degree burn Patient Disposition: Home, Self-Care Time of Disposition Decision: 09:00 Condition: Good Mode of Transportation: Private Vehicle Prescriptions / Home Meds: New ibuprofen 800 mg tablet 800 mg PO Q8H PRN (Reason: pain) Qty: 20 0RF No Action amitriptyline 50 mg tablet 50 mg PO BEDTIME Print Language: Egyptian Instructions: Superficial Burn (ED) Additional Instructions: Apply bacitracin twice a day. Referrals: TITUS HILARIO [Primary Care Provider, Family Practice] - 1 week
[2025-05-27] MEDS: IBUPROFEN 400 MG TABLET 800 MG PO (09:08)
[2025-05-27] MEDS: BACITRACIN OINTMENT 28.4 GM TUBE 1 APPLIC TOPICAL (09:09)
[2025-05-27] MEDS: DIPHTH,PERTUSS(ACELL),TET VAC 0.5 ML SYRINGE IM (09:10)
--- OUTSIDE RECORDS SUMMARY | 2025-05-27 09:23 | XMS_ITS | Clinical Summary ---
Author Organization [employer] [facility] tem Address [id number] 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 20 tablet 5Active prochlorperazine (COMPAZINE) 10 mg tablet Take 1 tablet (10 mg total) by mouth 2 (two) times a day as needed for nausea or vomiting. 10 tablet 5Active Active Problems ProblemNoted DateDiagnosed DateAcute kidney zevtqc1410/10/2020Intractable abdominal pain01/24/2020Superior mesenteric artery xlonnvbl65/24/2020Upper GI bleed01/24/2020Foreign body in left auditory canal01/25/2017 Immunizations ImmunizationAdministration DatesNext DueCOVID-19 Vaccine, vector-nr, rS-Ad26, PF, 0.5mL01/22/2021Tdap09/10/2018 Family History Medical HistoryRelationNameCommentsHeart diseaseMaternal GrandfatherHeart diseaseMaternal GrandmotherHeart diseaseMaternal UncleRelationNameStatusComments Maternal GrandfatherMaternal GrandmotherMaternal Uncle Social History Tobacco UseTypesPacks/DayYears UsedDateSmoking Tobacco: Every ImyUrqthonzox535 Smokeless Tobacco: Never Tobacco Cessation:Ready to Q uit: Yes; Counseling Given: No Comments:patient refused Alcohol UseStandard Drinks/WeekCommentsNot Currently0 (1 standard drink = 0.6 oz pure alcohol)Social Connection and Isolation PanelAnswerDate RecordedIn a typical week, how many times do you talk on the phone with family, friends, or neighbors?More than three times a week10/10/2020How often do you get together with friends or relatives?Once a week10/10/2020How often do you attend rastafari or restorationism services?Never10/10/2020o you belong to any clubs or organizations such as rastafari groups, unions, fraternal or athletic groups, or school groups?No 10/10/2020How often do you attend meetings of the clubs or organizations you belong to?Never10/10/2020re you , , , , never , or living with a partner?Never eqdhbrl3110/10/2020Overall Financial Resource Strain (CARDIA)AnswerDate RecordedHow hard is it for you to pay for the very basics like food, housing, medical care, and heating?Not hard at all 01/24/2020PHQ-2AnswerDate RecordedTotal Jhhqm572Fin[facility] [place] of Occupational Health - Occupational Stress QuestionnaireAnswerDate RecordedDo you feel stress - tense, restless, nervous, or anxious, or unable to sleep at night because yourmind is troubled all the time - these days?To some krhklk3810/10/2020 Exercise Vital SignAnswerDate RecordedOn average, how many days per week do you engage in moderate to strenuous exercise (like a brisk walk)?3 days10/10/2020On average, how many minutes do you engage in exercise at this level?30 min 10/10/2020RAPARE - TransportationAnswerDate RecordedIn the past 12 months, has lack of transportation kept you from medical appointments or from getting medications?No01/24/2020In the past 12 months, has lack of transportation kept you from meetings, work, or from getting things needed for daily living?No 01/24/2020ChildcareAnswerDate RecordedDo problems getting children's service supervisor make it difficult for you to work or study?No01/24/2020EmploymentAnswerDate RecordedDo you need help finding a local career center and/or a training program?No 01/24/2020Purpose - LifeAnswerDate RecordedPurpose and direction in lifeUnknown 08/13/2020ex and Gender InformationValueDate RecordedSex Assigned at BirthNot on fileLegal OxtFnxu3602/05/2015 11:45 AM EDTGender IdentityNot on fileSexual OrientationNot on file Last Filed Vital Signs Vital SignReadingTime TakenCommentsBlood Afucycbq223/8808/28/2024 10:15 PM EST Wughk80687/26/2025 10:15 PM MOUXtjbybbnkuw25.9 ??C (98.5 ??F)08/28/2024 8:12 PM ESTRespiratory Erug042108/28/2024 10:15 PM ESTOxygen Sadrbinhzp62%08/28/2024 10:15 PM ESTInhaled Oxygen Concentration--Cyppaf40.4 kg (142 lb)08/28/2024 8:12 PM EST Sdurtv210.1 cm (5' 5 )08/28/2024 8:12 PM ESTBody Mass Index23.63008/28/2024 8:12 PM EST Plan of Treatment Health MaintenanceDue DateLast DoneCommentsTobacco Dxuudmllfj57/27/1991 Depression Amkiibgfe51/27/2003COVID-19 Vaccine ( - season)2025 01/22/2021Influenza Dgiriwj0703/03/2025dult BMI Wvhtdqzmc75/26/ Tobacco Fxlalixim06/26/DTaP,Tdap and Td Vaccines (2 - Td or Tdap) Goals GoalPatient Goal TypeAssociated ProblemsRecent ProgressPatient-Stated?Author home Nelly Keane RN Note: Evaluation of progress towards goal: Patient plans to discharge home with self care and with assistance from family. Medical Devices Not on file Insurance * Guarantor: Tim Castellon TypeRelation to PatientDate of PhoneBilling AddressPersonal/DgloebQkcn46/27/[address] [address] Advance Directives * Full Code (Latest Code Status on File) Date ActivatedDate InactivatedComments01/22/2021 3:07 PM01/25/2021 5:03 PM * Full Code Date ActivatedDate InactivatedComments01/18/2021 12:41 PM01/19/2021 6:20 PM * Full Code Date ActivatedDate InactivatedComments10/10/2020 5:30 AM10/11/2020 6:25 PM * Full Code Date ActivatedDate InactivatedComments01/27/2020 8:39 AM02/02/2020 1:21 PM * Full Code Date ActivatedDate InactivatedComments01/25/2020 10:51 AM01/27/2020 7:44 AM Care Teams Team MemberRelationshipSpecialtyStart DateEnd Date Sara Carnes APRN-[employer]UST VAULT CUSTODIAN [address] [facility] [place] [id number] PCP - GeneralFamily Medicine08/28/24
--- OUTSIDE RECORDS SUMMARY | 2025-05-27 09:23 | XMS_ITS | Clinical Summary ---
Author Organization [facility] Address [address] [place] [id number] Care Team Providers Care Post Acute Care Nurse Name Role Phone Kyle Fischer MD Unavailable Unavail able Sara Carnes [employer] Unavailable [phone] Allergies No known active allergies Medications No known medications Social History Tobacco UseTypesPacks/DayYears UsedDateSmoking Tobacco: Every DaySmokeless Tobacco: NeverAlcohol UseStandard Drinks/WeekCommentsNever0 (1 standard drink = 0.6 oz pure alcohol)Area Deprivation IndexAnswerDate RecordedNational Score (1- 100), lower number is lower riskNot on file04/09/2021tate Score (1-10), lower number is lower riskNot on file04/09/2021ata from: https://www.neighborhoodatlas.medicine.[facility].edu/. Last address used for calculationNot on file04/09/2021ex and Gender InformationValueDate RecordedSex Assigned at BirthNot on fileLegal AfvEqki5403/23/2021 4:51 PM EDTGender Identity Not on fileSexual OrientationNot on file Last Filed Vital Signs Vital SignReadingTime TakenCommentsBlood Zegnabku596/7910 2:08 PM EDT Avuku246204/09/2021 2:08 PM EDTTemperature--Respiratory Rate--Oxygen Saturation-- Inhaled Oxygen Concentration--[place]92.4 kg (128 lb 11.2 oz)04/09/2021 2:08 PM CKSXbakmw240.8 cm (5' 6.05 )04/09/2021 2:08 PM EDTBody Mass Index20.7410 2:08 PM EDT Plan of Treatment Health MaintenanceDue DateLast DoneCommentsAnxiety Dhyqfnutp52/27/2009Depression Invohjfcq54/27/2009HIV Ewdyjrlvv19/27/2009Hepatitis C Zwswlwtos60/27/2009 Hepatitis B Vaccine (1 of 3 - 19+ 3-dose series)2009HPV Vaccine (1 - 3- dose SCDM series)2017Covid-19 Vaccine (2 - 2024- season)2025 01/22/2021Influenza Vaccine (#1)2025DTaP,Tdap,Td Vaccine (2 - Td [place]ap[place] [address] Care Teams Team MemberRelationshipSpecialtyStart DateEnd Date Kyle Fischer MD ReferringVascular Surgery03/23/21 Sara Carnes, [employer] [address] [place] [address] ReferringInternal Medicine08/18/22
--- OUTSIDE RECORDS SUMMARY | 2025-05-27 09:24 | XMS_ITS | CCD ---
Author Organization [facility] CliniSywv Care Team Providers Care Chief Resource Officer Name Role Phone GLEN ., DR LECHUGA Attending Unavailable HOY ., DR LECHUGA Consulting Unavailable HOY ., DR LECHUGA Primary Care Unavailable HOY ., DR LECHUGA Admanna Unavailable ZIEBER, DR MISAEL Laboy Consulting Unavailable HAY ., DR FRAGA Consulting Unavailable ZIEBER, DR MISAEL Laboy Consulting Unavailable HOY ., DR LECHUGA Primary Care Unavailable SARA HILARIO Admitting Unavailable SARA HILARIO Attending Unavailable SARA HILARIO Consulting Unavailable PAY ., DR PAINTING Admitting Unavailable HOY ., DR LECHUGA Primary Care Unavailable PAY ., DR PAINTING Attending Unavailable PAY ., DR PAINTING Consulting Unavailable HOY ., DR LECHUGA Attending Unavailable HOY ., DR LECHUGA Consulting Unavailable HOY ., DR LECHUGA Primary Care Unavailable HOY ., DR LECHUGA Admanna Unavailable MARKER ., DR KELLY Consulting Unavailable ALIYAH LAL Consulting Unavailable HOY ., DR LECHUGA Admitting Unavailable HOY ., DR LECHUGA Attending Unavailable HOY ., DR LECHUGA Consulting Unavailable HOY ., DR LECHUGA Primary Care Unavailable HAY ., DR FRAGA Consulting Unavailable ERVIN CHAO Consulting Unavailable EMILE CRAIG Consulting Unavailable LI SINGH Consulting Unavailable HOY ., DR LECHUGA Attending Unavailable HOY ., DR LECHUAG Consulting Unavailable HOY ., DR LECHUGA Primary Care Unavailable HOY ., DR LECHUGA Admanna Unavailable NADERER, DR MANUELA Willard Consulting Unavailable ERVIN CHAO Consulting Unavailable GUERA HUNTER Consulting Unavailable SARA HILARIO Primary Care Unavailable KARL DIAZ Attending Unavailable Pay Mert PERRY Attending Provider [phone] PayMert Admitting Unavailable Mert Vu Attending Unavailable Deyvi SPRINKLER FITTER HELPER-MANAGER TRUCKSara S Primary Care Provider Medications Current Medications MedicationDrug Class(es)DatesSig (Normalized)Sig (Original)amitriptyline hydrochloride 25 mg oral tablet (1 source)Tricyclic Antidepressanttake 1 tablet by mouth once dailyamitriptyline (ELAVIL) 25 mg tablet Take 1 tablet (25 mg total) by mouth nightly. Active dicyclomine hydrochloride 20 mg oral tablet (1 source)AnticholinergicStart: 42-08-9268xugx 1 tablet by mouth in the morning, then take 1 tablet by mouth at bedtimedicyclomine (BENTYL) 20 mg tablet Take 1 tablet (20 mg total) by mouth in the morning and 1 tablet (20 mg total) before bedtime. 20 tablet 08/28/2024 Activeprochlorperazine 10 mg oral tablet (1 source)PhenothiazineStart: 52-72-1516zgbw 1 tablet by mouth twice daily as needed for nauseaprochlorperazine (COMPAZINE) 10 mg tablet Take 1 tablet (10 mg total) by mouth 2 (two) times a day as needed for nausea or vomiting. 10 tablet 08/28/2024 Active Problems Active Problems Problem ClassificationProblemDateDocumented DateEpisodic/ChronicDiseases of white blood cells (1 source)Elevated white blood cell count, unspecified; Translations: [ELEVATED WHITE BLOOD CELL COUNT UNS]Onset: 05-81-5205VxcpkvmOtpccffsi hypertension (1 source)Essential (primary) hypertension; Translations: [ESSENTIAL PRIMARY HYPERTENSION]Onset: 94-60-9623VlrxcweJkrgq and electrolyte disorders (1 source)Dehydration; Translations: [DEHYDRATION]Onset: 20-01-0557Cajwiscm Nausea and vomiting (4 sources)Nausea with vomiting, unspecified; Translations: [NAUSEA WITH VOMITING UNSPECIFIED]Onset: 85-30-9498UswlxzraUtjet aftercare (1 source)Other terminal gauger (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 therapy; Translations: [OTH PENITENTIARY CURRENT DRUG THERAPY]Onset: 02-89-9889EzofmoniOlfqm aftercare (1 source)emt intermediate (current) use of aspirin; Translations: [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]Onset: 70-57-9879EswrqwpkJxbve connective tissue disease (4 sources)Pain in right forearm; Translations: [PAIN IN RIGHT FOREARM]Onset: 62-84-4215IkvkwrvsMcmhf nervous system disorders (2 sources)Other chronic pain; Translations: [OTHER CHRONIC PAIN]Onset: 04-74-2912VeywcaoZkuib nutritional; endocrine; and metabolic disorders (1 source)Disorder of urea cycle metabolism, unspecified; Translations: [DISORDER UREA CYCLE METABOLISM UNS]Onset: 95-41-9056YrsqzvoCxhralzavb and visceral atherosclerosis (3 sources)Chronic vascular disorders of intestine; Translations: [Other vascular disorders of intestine]Onset: 082992-22-6859LqpeipaMvknsqljr- related disorders (2 sources)Nicotine dependence, cigarettes, uncomplicated; Translations: [Cannabis abuse, uncomplicated]Onset: 42-56-0250NapnfsrVvfmrrzip-related disorders (1 source)Cannabis use, unspecified, uncomplicated; Translations: [CANNABIS USE UNS UNCOMPLICATED]Onset: 29-87-9450GfiggrjsTxrdmntslzzp (4 sources)Cyclical vomiting syndrome unrelated to migraine; Translations: [CYCLICL VOMTNG SYN UNRELTD MIGRAINE]Onset: 62-68-2226Ccjvkixehrsy (1 source)CONTACT W/AND (SUSP) EXPOS COVID-19; Translations: [CONTACT W/AND (SUSP) EXPOS COVID-19]Onset: 02-63-4351Swmorqeunwoh (1 source)illOnset: 08-28-2024 Past or Other Problems Problem ClassificationProblemDateDocumented DateEpisodic/ChronicAbdominal pain (4 sources)Unspecified abdominal pain; Translations: [Abdominal pain]Onset: 555055-29-2126IinlevheFvntl and unspecified renal failure (1 source)Acute renal failure syndrome; Translations: [Acute kidney failure, unspecified]Onset: 396128-03-1753DjxoczwqJkutawnev of teeth and jaw (5 sources)Other specified disorders of teeth and supporting structures; Translations: [Dental caries, unspecified]Onset: 95-49-4156Prxywrcp Gastrointestinal hemorrhage (1 source)Upper gastrointestinal bleeding; Translations: [Gastrointestinal hemorrhage, unspecified]Onset: 882179-61-8932FwmdlmezWwmm disorders (1 source)Mood disordersOnset: Other injuries and conditions due to external causes (1 source)Foreign body in left ear, initial encounter; Translations: [Foreign body in ear]Onset: 571984-50-0013BkfziuhzRgjme nervous system disorders (1 source)Atypical facial pain; Translations: [ATYPICAL FACIAL PAIN]Onset: 26-44-7448Jyssergl Results Test NameValueInterpretationReference RangeFacilityUrine Cultureon 08-30-2024 Bacteria identified Cx Nom (U)No Growth 2 Days PERFORMED BY: [facility] [address] [facility] [place] [address] PATHOLOGIST WOOD BARKER JUAN DASILVA M.D.NormalOrlando Health South Seminole Hospital Physician GroupComment on above: Performed By: #### CUU #### [facility] [address] [place] [address] USACBC AND AUTO DIFFon 51-48-6148DGKMGLRQ BASOPHIL0.1 X10E9/L Normal0.0-0.2ProMedEl Camino HospitalComment on above:Performed By: #### CBCA, CMP, 0-3 #### [facility] ([id number]) [address] [place] [address] 46162EEUWDRLW NEUTROPHIL6.3 X10E9/LNormal1.5-6.6ProSaint Mark'S Medical CenterComment on above:Performed By: #### CBCA, CMP, 3040-3 #### [facility] ([id number]) [address] [place] [address] 72993Nmgvzfrfu/100 WBC (Bld)0.9 %NormalProSaint Mark'S Medical Center Comment on above:Performed By: #### CBCA, CMP, 3040-3 #### [facility] ([id number]) [address] [place] [address] 25129Cvbxfwqnyzq (Bld) [#/Vol]0.0 10*3/uLNormal0.0-0.4[facility] HospitalComment on above:Performed By: #### CBCA, CMP, 3040-3 #### [facility] ([id number]) [address] [place] [address] 59159Damdvlxraka/100 WBC (Bld)0.0 %NormalMercy Health Clermont Hospital Comment on above:Performed By: #### CARLOS BEVERLY, 304-3 #### [facility] ([id number]) [address] [place] [address] 29179Womrqobremj distribution width (RBC) [Ratio]13.6 %Normal 11.5-15.0Mer[facility] Clerm[facility] HospitalComment on above:Performed By: #### CBCSudheer, CMP, 3039-3 #### [facility] ([id number]) [address] [place] [address] 60446Yqssqsdknt (Bld) [Volume fraction]39.2 %Qvghom14-71ZkrPkjtvvMercy Health Clermont HospitalComment on above:Performed By: #### RUSH CMP, 3039-3 #### [facility] ([id number]) [address] [place] [address] 59637Uguiwkfzvp (Bld) [Mass/Vol]13.8 g/qNKpisnl58.0-17.0Mer[facility] HospitalComment on above:Performed By: #### CBCSudheer, CMP, 3039-3 #### [facility] ([id number]) [address] [place] [address] 17720Uensrpozemh (Bld) [#/Vol]1.9 10*3/uLNormal1.0-3.5PEast Liverpool City HospitalComment on above:Performed By: #### CBCA, CMP, 3039-3 #### [facility] ([id number]) [address] [place] [address] 27447Gngyxpolncj/100 WBC (Bld)20.3 %NormalMercy Health Clermont Hospital Comment on above:Performed By: #### CBCA, CMP, 3039-3 #### [facility] ([id number]) [address] [place] [address] [place] [address]CMH (RBC) [Entitic mass]31.2 owZjenni91-45OosSjddbxMercy Health Clermont HospitalComment on above:Performed By: #### CARLOS BEVERLY, 0-3 #### [facility] ([id number]) [address] [place] [address] 32426KNAS (RBC) [Mass/Vol]35.2 g/mGZmzonf31-82HwgGwgtijSaint Mark'S Medical CenterComment on above:Performed By: #### CBCCARLOS Willard, 0-3 #### [facility] ([id number]) [address] [place] [address] 73191TUD (RBC) [Entitic vol]88 fKEuyuxu21-157EtoMbyatw [place] HospitalComment on above:Performed By: #### CARLOS BEVERLY, 3039-3 #### [facility] ([id number]) [address] [place] [address] 51611Oyqxdhxlp (Bld) [#/Vol]0.9 10*3/uLNormal0-0.9Mer[facility] HospitalComment on above:Performed By: #### CARLOS BEVERLY, 3039-3 #### [facility] ([id number]) [address] [place] [address] 30154Btklcwsje/100 WBC (Bld)10.3 %[facility] Comment on above:Performed By: #### CBCA, CMP, 3039-3 #### [facility] ([id number]) [address] [place] [address] 60748Oewydfwqyrx/100 WBC (Bld)68.5 %[facility] Comment on above:Performed By: #### CBCA, CMP, 0-3 #### [facility] ([id number]) [address] [place] [address] 68599Wfiffkwj mean volume (Bld) [Entitic vol]8.2 fLNormal7-12 [facility] HospitalComment on above:Performed By: #### CARLOS BEVERLY, 3040-3 #### [facility] ([id number]) [address] [place] [address] 79216Anonwxqbw (Bld) [#/Vol]259 10*3/hNHpsuyv407-002JykTznuzf [place] HospitalComment on above:Performed By: #### CARLOS BEVERLY, 3039-3 #### [facility] ([id number]) [address] [place] [address] 54790YZD COUNT4.43 X10E12/LNormal4.10-5.70[facility] Comment on above:Performed By: #### CARLOS BEVERLY, 3039-3 #### [facility] ([id number]) [address] [place] [address] 55740TXB (Bld) [#/Vol]9.2 10*3/uLNormal4.0-11.0ProSaint Mark'S Medical CenterComment on above:Performed By: #### CARLOS BEVERLY, 3039-3 #### [facility] ([id number]) [address] [place] [address] 10269WHKIZIVGCHTLV METABOLIC PANELon 19-19-8156Sbeimee [Mass/Vol]4.6 g/dLNormal3.2-5.3PEast Liverpool City HospitalComment on above:Performed By: #### CARLOS BEVERLY, 0-3 #### [facility] ([id number]) [address] [place] [address] 56307FXT [Catalytic activity/Vol]71 U/DAczymd99-737XpgVblhspSaint Mark'S Medical CenterComment on above:Performed By: #### CARLOS BEVERLY, 0-3 #### [facility] ([id number]) [address] FLO[address] [place], [place] [address]WRZ [Catalytic activity/Vol]36 U/LNormal0-40ProSaint Mark'S Medical CenterComment on above:Performed By: #### CARLOS BEVERLY, 3040-3 #### [facility] ([id number]) [address] [place] [address], [place] [address]Hnlyv gap [Moles/Vol]9 mmol/LNormal5-15ProSaint Mark'S Medical CenterComment on above:Performed By: #### CARLOS BEVERLY, 0-3 #### [facility] ([id number]) [address] [place] [address], [place] [address]VDI [Catalytic activity/Vol]41 U/LNormal0-41ProSaint Mark'S Medical CenterComment on above:Performed By: #### CARLOS BEVERLY, 0-3 #### [facility] ([id number]) [address] [place] [address], [place] [address]Tvasxfjxm [Mass/Vol]0.8 mg/dLNormal0.3-1.2PEast Liverpool City HospitalComment on above:Performed By: #### CARLOS BEVERLY, 0-3 #### [facility] ([id number]) [address] [place] [address], [place] [address]Oitrdpj [Mass/Vol]9.1 mg/dLNormal8.5-10.5PEast Liverpool City HospitalComment on above:Performed By: #### CARLOS BEVERLY, 3040-3 #### [facility] ([id number]) [address] [place] [address], [place] [address]Buldbohw [Moles/Vol]98 mmol/KZdslgo43-352JluBzfqxgSaint Mark'S Medical CenterComment on above:Performed By: #### CARLOS BEVRELY, 0-3 #### [facility] ([id number]) [address] [place] [address], [place] [address]TJ9 [Moles/Vol]24 mmol/JGrcpqq10-52ByyBedjgwEast [facility] City Hospital Comment on above:Performed By: #### CARLOS BEVERLY, 3040-3 #### [facility] ([id number]) [address] [place] [address] 08000Hrzvzawbje [Mass/Vol]0.91 mg/dLNormal0.70-1.20ProSaint Mark'S Medical CenterComment on above:Result Comment: METHOD TRACEABLE TO IDMS STANDARD Performed By: #### CARLOS BEVERLY, 0-3 #### [facility] ([id number]) [address] [place] [address] 76997nPSA (CKD-EPI) NON-RACE DEPENDENT>90Normal>59ProSaint Mark'S Medical CenterComment on above:Result Comment: Reported eGFR is based on the CKD-EPI 2020 equation that does not use a race coefficient.Performed By: #### CARLOS BEVERLY, 3040-3 #### [facility] ([id number]) [address] [place] [address] 99083Stprewh [Mass/Vol]127 mg/pBOqtm37-31OmcIamelhSaint Mark'S Medical Center Comment on above:Performed By: #### CARLOS BEVERLY, 3040-3 #### [facility] ([id number]) [address] [place] [address] 28693Dfnhsuklg [Moles/Vol]3.3 mmol/LLow3.5-5.0ProSaint Mark'S Medical CenterComment on above:Performed By: #### CARLOS BEVERLY, 0-3 #### [facility] ([id number]) [address] [place] [address] 14873Ydnpjxx [Mass/Vol]7.6 g/dLNormal6.0-8.0ProSaint Mark'S Medical CenterComment on above:Performed By: #### CARLOS BEVERLY, 3040-3 #### [facility] ([id number]) [address] [place] [address] 86383Mvvfth [Moles/Vol]131 mmol/XPuj347-218GkfHuglngSaint Mark'S Medical CenterComment on above:Performed By: #### CARLOS BEVERLY, 3040-3 #### [facility] ([id number]) [address] [place] [address] 21445Jsmh nitrogen [Mass/Vol]26 mg/dLHigh5-ProSaint Mark'S Medical CenterComformerly [facility] on above:Performed By: #### CARLOS BEVERLY, 3040-3 #### [facility] ([id number]) [address] [place] [address] 76534UIRJBGjs 45-48-2814Walled [Catalytic activity/Vol]28 U/LNormal 17-40Mer[facility] HospitalComformerly [facility] on above:Performed By: #### CARLOS BEVERLY, 3040-3 #### [facility] ([id number]) [address] [place] [address] 62316Rnggaub (P rui) [Moles/Vol]on 88-22-9144TAZHAZB W/REFLEX1.7 mmol/LNormal0.4-2.0Mer[facility] HospitalComformerly [facility] on above:Result Comment: Result did not trigger repeat Lactate, re-order if needed.Performed By: #### 10188-8 #### [facility] ([id number]) [address] [place] [address] 89573MJHTWZNMWS DRUG SCREENon 05-42-3190EFS.NormalThe St. [facility] HospitalComformerly [facility] on above:Performed By: #### CVDTBH #### [facility] [address] [place] [address] [address] Anne HospitalComformerly [facility] on above:Result Comment: TOXASSURE COMP DRUG ANALYSIS,UR Test Result [...] test is not intended to distinguish between fswbu-9-wrvagtaxlowkzsvnpgye, the predominant form of THC in most herbal or marijuana-based products, and abqfp-1-mgxacbfxyddcrrgnshds. Amitriptyline PRESENT Nortriptyline PRESENT Nortriptyline may be administered as a prescription drug; it is also an expected metabolite of amitriptyline. Acetaminophen PRESENT Diphenhydramine PRESENT Test Result Flag Units Ref Range Creatinine 183 mg/dL >=20 Declared Medications: Medication list was not provided. For clinical consultation, please call . Performed By: #### CVDTBH #### [facility] [address] [place] [address] Dr. Rosa Gardner AUTO DIFFon [id number] #0.0 103/ulNormal0.0-0.1The [facility] Cleveland-Fairhillment on above:Performed By: #### CVDTBH #### [facility] [address] [place] [address] Dr. Rosa TranBasophils/100 WBC (Bld)0.5 %Normal0.2-2.0[facility] Comment on above:Performed By: #### CVDTBH #### [facility] [address] [place] [address] Dr. Rosa Carbajal #0.0 103/ulNormal0.0-0.7The St. Vincent HospitalComment on above: Performed By: #### CVDTBH #### [facility] [address] [place] [address] Dr. Rosa Dejesusosinophils/100 WBC (Bld)0.2 %Critically low0.9-7.0The [facility]ment on above:Performed By: #### CVDTBH #### [facility] [address] [place] [address] Dr. Rsoa Dejesusrythrocyte distribution width (RBC) [Ratio]12.5 %Fxiljk78.0-15.0 [facility] Hospitalment on above:Performed By: #### CVDTBH #### [facility] [address] [place] [address] Dr. Rosa TranHematocrit (Bld) [Volume fraction]39.7 %Critically low42.0-54.0 [facility] on above:Performed By: #### CVDTBH #### [facility] [address] [place] [address] Dr. Rosa TranHemoglobin (Bld) [Mass/Vol]13.9 g/dLCritically low14.0-18.0The St. Vincent HospitalComment on above:Performed By: #### CVDTBH #### [facility] [address] [place] [address] Dr. Rosa Sanchez #0.02 10e3/ulNormal0.00-0.03The St. Vincent HospitalComment on above:Performed By: #### CVDTBH #### [facility] [address] [place] [address] Dr. Rosa Sanchez %0.2 %Normal0.0-0.5The St. Vincent HospitalComment on above: Performed By: #### CVDTBH #### [facility] [address] [place] [address] Dr. Rosa Martinez #1.7 103/ulNormal1.2-3.8The St. Vincent HospitalComment on above:Performed By: #### CVDTBH #### [facility] [address] [place] [address] Dr. Rosa Bolandhocytes/100 WBC (Bld)19.2 %Critically low20.5-60.0The St. Vincent HospitalComment on above:Performed By: #### CVDTBH #### [facility] [address] [place] [address] Dr. Rosa Encarnacion DIFF REQNONormalThe St. Vincent HospitalComment on above: Performed By: #### CVDTBH #### [facility] [address] [place] [address] Dr. Rosa Delacruz (RBC) [Entitic mass]30.5 veIiuzsx19.9-34.0The St. Vincent HospitalComment on above:Performed By: #### CVDTBH #### [facility] [address] [place] [address] Dr. Rosa Pinzon (RBC) [Mass/Vol]35.0 g/pOMkpfdy69.9-35.2The [facility]. Vincent HospitalComment on above:Performed By: #### CVDTBH #### [facility] [address] [place] [address] Dr. Rosa Stone (RBC) [Entitic vol]87.[address]GJpfjkn20.0-94.0The [facility] Vincent HospitalComment on above:Performed By: #### CVDTBH #### [facility] [address] [place] [address] Dr. Rosa Hatch #0.6 103/ulNormal0.3-0.8The St. Vincent HospitalComment on above:Performed By: #### CVDTBH #### [facility] [address] [place] [address] Dr. Rosa Staffordocytes/100 WBC (Bld)7.2 %Normal1.7-12.0The [facility] Comment on above:Performed By: #### CVDTBH #### [facility] [address] [place] [address] Dr. Rosa Nevarez #6.4 103/ulNormal1.4-6.5The St. Vincent HospitalComment on above:Performed By: #### CVDTBH #### [facility] [address] [place] [address] Dr. Rosa Vargasutrophils/100 WBC (Bld)72.7 %Nakdqe00.0-75.0The St. Vincent HospitalComment on above:Performed By: #### CVDTBH #### [facility] [address] [place] [address] Dr. Rosa Valerolet mean volume (Bld) [Entitic vol]9.6 fLNormal9.5-13.5The St. Vincent HospitalComment on above:Performed By: #### CVDTBH #### [facility] [address] [place] [address] Dr. Rosa TranPLT255 103/xgFosqgx559-145Eeb St. Vincent HospitalComment on above: Performed By: #### CVDTBH #### [facility] [address] [place] [address] Dr. Rosa TranRBC4.56 106/ulCritically low4.70-6.10The St. Vincent HospitalComment on above:Performed By: #### CVDTBH #### [facility] [address] [address] [address] Rosa TranWBC8.8 103/ulNormal4.0-11.0The St. Vincent HospitalComment on above: Performed By: #### CVDTBH #### [facility] [address] [address] [address] Rosa TranPROF CHEM 8 (BAS METB)on 75-54-5167Mhkmu gap [Moles/Vol]12.0 mmol/LNormalThe St. Vincent HospitalComment on above:Performed By: #### CVDTBH #### [facility] [address] [address] [address] Rosa TranCalcium [Mass/Vol]9.1 mg/dLNormal8.5-10.1[facility] Comment on above:Performed By: #### CVDTBH #### [facility] [address] [address] [address] Rosa TranChloride [Moles/Vol]104 mmol/SEdxbgy54-158YnlDayton Osteopathic Hospital Comment on above:Performed By: #### CVDTBH #### [facility] [address] [address] [address] Rosa TranCO2 [Moles/Vol]27.1 mmol/WNwoovo82.0-32.0[facility] Comment on above:Performed By: #### CVDTBH #### [facility] [address] [address] [address] Rosa TranCreatinine [Mass/Vol]0.71 mg/dLNormal0.70-1.30The St. Vincent HospitalComment on above:Performed By: #### CVDTBH #### [facility] [address] [address] [address] Lee ChangEGFR-AF YEMENI>60Normal>=60The St. Vincent HospitalComment on above:Performed By: #### CVDTBH #### [facility] [address] [address] [address] Rosa DejesusGFR-NON AF YEMENI>60Normal>=60The St. Vincent HospitalComment on above:Performed By: #### CVDTBH #### [facility] [address] [address] [address] Rosa TranGlucose [Mass/Vol]116 mg/dLCritically gday08-249Qfi St. Vincent HospitalComment on above:Performed By: #### CVDTBH #### [facility] [address] [address] [address] Rosa TranPotassium [Moles/Vol]3.1 mmol/LCritically low3.5-5.1The St. Vincent HospitalComment on above:Performed By: #### CVDTBH #### [facility] [address] [address] [address] Rosa TranSodium [Moles/Vol]140 mmol/JKfcgog235-280Vyo [facility] Comment on above:Performed By: #### CVDTBH #### [facility] [address] [address] [address] Rosa TranUrea nitrogen [Mass/Vol]10.0 mg/dLNormal7.0-18.0The St. Vincent HospitalComment on above:Performed By: #### CVDTBH #### [facility] [address] [place] [address] Dr. Rosa Doan nitrogen/Creatinine [Mass ratio]14.1 mg/mgNormalThe St. Vincent HospitalComment on above:Performed By: #### CVDTBH #### [facility] [address] [place] [address] Dr. Rosa Gardner AUTO DIFFon [id number] #0.1 103/ulNormal0.0-0.1The St. Vincent HospitalComment on above:Performed By: #### CBC ####[facility] [address] [place], [place] [address]Dr.Yilan TranBasophils/100 WBC (Bld)0.7 %Normal0.2-2.0The St. Vincent HospitalComment on above:Performed By: #### CBC ####[facility] [address]B[place], [place] [address]Cu.Yilan ChangEO #0.0 103/ulNormal0.0-0.7The St. Vincent HospitalComment on above:Performed By: #### CBC ####[facility] [address] [place], [place] [address]Dr.Robynlan ChangEosinophils/100 WBC (Bld)0.1 %Critically low0.9-7.0The [facility]. [facility] HospitalComment on above:Performed By: #### CBC ####[facility] Wlvkcrmoje[address] [place], [place] [address]Dr. Yilan ChangErythrocyte distribution width (RBC) [Ratio]12.8 %Zpyzhg94.0-15.0The [facility] HospitalComment on above:Performed By: #### CBC ####[facility] Vmqviizlub8[address] [place], [place] [address]Dr.Rosa ChangHematocrit (Bld) [Volume fraction]37.8 %Critically low42.0-54.0The [facility] HospitalComment on above:Performed By: #### CBC ####[facility] Sduicqtbzs35[address] [place], [place] [address]Dr.Rosa ChangHemoglobin (Bld) [Mass/Vol]12.7 g/dL Critically low14.0-18.0The [facility] HospitalComment on above:Performed By: #### CBC ####[facility] Pfzygiqvos187[address] [place], [place] [address]Dr. Yilan ChangIG #0.04 10e3/ulCritically high0.00-0.03The [facility] HospitalComment on above:Performed By: #### CBC ####[facility] Oirqmcddfe[address] [place], [place] [address]Dr.Yilan ChangIG %0.5 %Normal0.0-0.5The [facility] HospitalComment on above:Performed By: #### CBC ####[facility] Jhrfspqurb628[address] [place], [place] [address]Dr.Yilan ChangLYMPH #1.8 103/ulNormal1.2-3.8The [facility] HospitalComment on above:Performed By: #### CBC ####[facility] [address] [place] [address]Dr. Rosa TranLymphocytes/100 WBC (Bld)23.3 %Xpcbpf47.5-60.0The [facility] Comment on above:Performed By: #### CBC ####[facility] Lohzcsaagd00[address] [place], [place] [address]Dr.Rosa TranMANUAL DIFF REQNONormalThe St. Vincent HospitalComment on above:Performed By: #### CBC ####[facility] Vfjqwlntcm[address] [place], [place] [address]Dr.Rosa TranH (RBC) [Entitic mass]30.4 xlTobjac61.9-34.0The [facility] HospitalComment on above: Performed By: #### CBC ####[facility] Meebtwwnfd8085[address] [place], [place] [address]Dr.Rosa TranMCHC (RBC) [Mass/Vol]33.6 g/dLNormal 29.9-35.2The [facility] HospitalComment on above:Performed By: #### CBC ####[facility] Cbsyicprdt5729[address] [place], [place] [address]Dr. Rosa TranMCV (RBC) [Entitic vol]90.4 qUNnhbsv80.0-94.0The [facility] Comment on above:Performed By: #### CBC ####[facility] Oqfocnwoek7940[address] [place], [place] [address]Dr.Rosa TranMONO #0.5 103/ulNormal0.3-0.[address] [facility] HospitalComment on above:Performed By: #### CBC ####[facility] Ahirkpdvwe7617[address] [place], [place] [address]Dr.Rosa Tran Monocytes/100 WBC (Bld)6.7 %Normal1.7-12.0The [facility] HospitalComment on above: Performed By: #### CBC ####[facility] Cgeltqubrq615[address] [place], [place] [address]Dr.Rosa MarcNEUT #5.3 103/ulNormal1.4-6.5The [facility] HospitalComment on above:Performed By: #### CBC ####[facility] [address]izxievg[address] [place] [address]Dr.Rosa TranNeutrophils/100 WBC (Bld)68.7 %Arejrg84.0-75.0The [facility] HospitalComment on above:Performed By: #### CBC ####[facility] [address]irm[address] [place] [address]Dr.Rosa TranPlatelet mean volume (Bld) [Entitic vol]9.4 fLCritically low 9.5-13.5The [facility] HospitalComment on above:Performed By: #### CBC ####[facility] Bxmzhpkzzo745342 [address] [place], [place] [address]Dr. Rosa TranPLT221 103/jlYwipdm620-623Izx St. [facility] HospitalComment on above: Performed By: #### CBC ####[facility] Lxpjtaawgc909[address] [place], [place] [address]Dr.Rosa TranRBC4.18 106/ulCritically low4.70-6.10The [facility] HospitalComment on above:Performed By: #### CBC ####[facility] Jqkpypocvm9618[address] [place], [place] [address]Dr.Rosa TranWBC7.6 103/ul Normal4.0-11.0The [facility] HospitalComment on above:Performed By: #### CBC ####[facility] Atglsfyxnw007042 [address] [place], [place] [address]Dr. Robynyoselin TranPROF CHEM 8 (BAS METB)on 96-01-4182Vpkhy gap [Moles/Vol]9.4 mmol/L NormalThe St. Vincent HospitalComment on above:Performed By: #### BMP ####[facility] Ppvafuxmyj3745[address] [place], [place] [address]Dr.Rosa Tran Calcium [Mass/Vol]8.6 mg/dLNormal8.5-10.1The [facility] HospitalComment on above: Performed By: #### BMP ####[facility] Qbwlmlwshs023[address] [place], [place] [address]Dr.Rosa TranChloride [Moles/Vol]105 mmol/LNormal 98-107The [facility] HospitalComment on above:Performed By: #### BMP ####[facility] Bazlllkspy378[address] [place], [place] [address]Dr.Yilan ChangCO2 [Moles/Vol]26.9 mmol/TVduhzv55.0-32.0The [facility] HospitalComment on above: Performed By: #### BMP ####[facility] Aosnvqqsix348242 [address] [place], [place] [address]Dr.Yilan ChangCreatinine [Mass/Vol]0.61 mg/dL Critically low0.70-1.30The [facility] HospitalComment on above:Performed By: #### BMP ####[facility] Rwwcxhtpej2412[address] [place], [place] [address]Dr. Yilan ChangEGFR-AF YEMENI>60Normal>=60The [facility] HospitalComformerly [facility] on above: Performed By: #### BMP ####[facility] Xuwjoyzcea2297[address] [place], [place] [address]Dr.Yilan ChangEGFR-NON AF YEMENI>60Normal>=60The [facility] HospitalComment on above:Performed By: #### BMP ####[facility] Xsusznpajm5813[address] [place], [place] [address]Dr.Yilan ChangGlucose [Mass/Vol]124 mg/dLCritically mnrk75-646Ykg St. [facility] HospitalComment on above: Performed By: #### BMP ####[facility] Lubxascuyt0859[address] [place], [place] [address]Dr.Yilan ChangPotassium [Moles/Vol]3.3 mmol/L Critically low3.5-5.1The [facility] HospitalComment on above:Performed By: #### BMP ####[facility] Tqebkanuyp1820[address] [place], [place] [address]Dr. Yilan ChangSodium [Moles/Vol]138 mmol/AGspick031-194Gjs St. Vincent HospitalComment on above:Performed By: #### BMP ####[facility] Kbwkvzbanh125[address] [place], [place] [address]Dr.Yilan ChangUrea nitrogen [Mass/Vol]5.0 mg/dL Critically low7.0-18.0The [facility] HospitalComment on above:Performed By: #### BMP ####[facility] [address]rxemqp[address] [place] [address]Dr. Rosa TranUrea nitrogen/Creatinine [Mass ratio]8.2 mg/mgNoAvita Health System Ontario HospitalComment on above:Performed By: #### BMP ####[facility] [address]vhbi[address] [place] [address]Dr.Yilan TranXR ABD FLAT UP_PA [place] 01-45-1838OL ABD FLAT UP_PA CHEXAM: Acute abdomen series: HISTORY: Abdominal pain with [...] Electronically authenticated by: EMILE CRAIG Date: 2022-10-13 09:07[facility] AUTO DIFFon [id number] #0.0 103/ulNormal0.0-0.1The [facility] HospitalComment on above:Performed By: #### CBC #### [facility] [address] [address] [address] Rosa TranBasophils/100 WBC (Bld)0.4 %Normal0.2-2.0The [facility] Comment on above:Performed By: #### CBC #### [facility] [address] [address] [address] Rosa Carbajal #0.0 103/ulNormal0.0-0.7The [facility] HospitalComment on above: Performed By: #### CBC #### [facility] [address] [address] [address] Rosa Dejesusosinophils/100 WBC (Bld)0.0 %Critically low0.9-7.0The [facility] HospitalComment on above:Performed By: #### CBC #### [facility] [address] [place] [address] Dr. Rosa Dejesusrythrocyte distribution width (RBC) [Ratio]13.2 %Qqadsb85.0-15.0 [facility] HospitalComformerly [facility] on above:Performed By: #### CBC #### [facility] [address] [place] [address] Dr. Rosa TranHematocrit (Bld) [Volume fraction]34.9 %Critically low42.0-54.[address] [facility] HospitalComformerly [facility] on above:Performed By: #### CBC #### [facility] [address] [place] [address] Dr. Rosa TranHemoglobin (Bld) [Mass/Vol]11.9 g/dLCritically low14.0-18.0[facility] HospitalComment on above:Performed By: #### CBC #### [facility] [address] [place] [address] Dr. Rosa Sanchez #0.02 10e3/ulNormal0.00-0.03The [facility] HospitalComment on above:Performed By: #### CBC #### [facility] [address] [place] [address] Dr. Rosa Sanchez %0.2 %Normal0.0-0.5The [facility] on above: Performed By: #### CBC #### [facility] [address] [place] [address] Dr. Rosa BolandH #1.3 103/ulNormal1.2-3.8The [facility] HospitalComment on above:Performed By: #### CBC #### [facility] [address] [place] [address] Dr. Rosa Almeidamphocytes/100 WBC (Bld)15.5 %Critically low20.5-60.0The [facility] HospitalComment on above:Performed By: #### CBC #### [facility] [address] [place] [address] Dr. Rosa SanchezUAL DIFF REQNONormalThe [facility] HospitalComment on above: Performed By: #### CBC #### [facility] [address] [address] [address] Rosa Peterson (RBC) [Entitic mass]31.0 vuOackuf81.9-34.0The [facility] HospitalComment on above:Performed By: #### CBC #### [facility] [address] [place] [address] Dr. Rosa Peterson (RBC) [Mass/Vol]34.1 g/oFIxepor73.9-35.2The [facility] HospitalComment on above:Performed By: #### CBC #### [facility] [address] [place] [address] Dr. Rosa Peterson (RBC) [Entitic vol]90.9 uTKxxzap85.0-94.0The [facility] HospitalComment on above:Performed By: #### CBC #### [facility] [address] [place] [address] Dr. Rosa Hatch #0.4 103/ulNormal0.3-0.8The [facility] HospitalComment on above:Performed By: #### CBC #### [facility] [address] [place] [address] Dr. Rosa Staffordocytes/100 WBC (Bld)4.9 %Normal1.7-12.0[facility] Comment on above:Performed By: #### CBC #### [facility] [address] [place] [address] Dr. Rosa Nevarez #6.6 103/ulCritically high1.4-6.5The [facility] Comment on above:Performed By: #### CBC #### [facility] [address] [place] [address] Dr. Rosa Vargasutrophils/100 WBC (Bld)79.0 %Critically high43.0-75.0The [facility] HospitalComment on above:Performed By: #### CBC #### [facility] [address] [place] [address] Dr. Rosa Wilson mean volume (Bld) [Entitic vol]9.9 fLNormal9.5-13.5The [facility] HospitalComment on above:Performed By: #### CBC #### [facility] [address] [place] [address] Dr. Rosa TranPLT196 103/nxWazdsd297-321Duv St. [facility] HospitalComment on above: Performed By: #### CBC #### [facility] [address] [address] [address] Rosa TranRBC3.84 106/ulCritically low4.70-6.10The [facility] [place] HospitalComment on above:Performed By: #### CBC #### [facility] [address] [place] [address] Dr. Rosa TranWBC8.4 103/ulNormal4.0-11.0The [facility] HospitalComment on above: Performed By: #### CBC #### [facility] [address] [place] [address] Dr. Rosa TranPROF CHEM 8 (BAS METB)on 64-01-2217Crbud gap [Moles/Vol]12.1 mmol/LNormalThe St. Vincent HospitalComment on above:Performed By: #### BMP ####[facility] Epphglcrtw[address] [place], [place] [address]Dr. Rosa TranCalcium [Mass/Vol]8.1 mg/dLCritically low8.5-10.1The [facility] HospitalComment on above:Performed By: #### BMP ####[facility] Fdtduharsh7920[address] [place] [address] ChangChloride [Moles/Vol]108 mmol/LCritically lzyz88-912Aul St[facility] HospitalComment on above: Performed By: #### BMP ####[facility] Hngoxhsbsj[address] [place] [address] ChangCO2 [Moles/Vol]24.5 mmol/LNormal 21.0-32.0The [facility] HospitalComment on above:Performed By: #### BMP ####[facility] Sgnzpnpsvk812242 [address] [place], [place] [address]Dr. Lee ChangCreatinine [Mass/Vol]0.64 mg/dLCritically low0.70-1.30The [facility] HospitalComment on above:Performed By: #### BMP ####[facility] Yevviowmyz915[address] [place], [place] [address]Dr.Yilan ChangEGFR-AF YEMENI>60Normal>=60The [facility] HospitalComment on above:Performed By: #### BMP ####[facility] Gcyubskykh335[address] [place], [place] [address]Dr. Yilan ChangEGFR-NON AF YEMENI>60Normal>=60The [facility] HospitalComment on above:Performed By: #### BMP ####[facility] Ebwrzojbaj112[address] [place], [place] [address]Dr.Robynlan ChangGlucose [Mass/Vol]132 mg/dLCritically febn06-348Evw St. [facility] HospitalComment on above:Performed By: #### BMP ####[facility] Nsxntxbrhi148[address] [place], [place] [address]Dr. Robynlan ChangPotassium [Moles/Vol]3.6 mmol/LNormal3.5-5.1The [facility] Comment on above:Performed By: #### BMP ####[facility] Rlzuellfwa525[address] [place], [place] [address]Dr.Robynlan ChangSodium [Moles/Vol]141 mmol/L Zbmqlm153-773Plb [facility] HospitalComment on above:Performed By: #### BMP ####[facility] Uaihfjeylc0489[address] [place], [place] [address]Dr. Robynlan ChangUrea nitrogen [Mass/Vol]7.0 mg/dLNormal7.0-18.0The [facility] Comment on above:Performed By: #### BMP ####[facility] Gxsdcvqmsn28264[address] [place], [place] [address]Dr.Robynlan ChangUrea nitrogen/Creatinine [Mass ratio]10.9 mg/mgNormalThe St. Vincent HospitalComment on above:Performed By: #### BMP ####[facility] Tmytlyoewb033[address] [place], [place] [address]Dr. Robynlan ChangCBC AUTO DIFFon [id number] #0.0 103/ulNormal0.0-0.1The [facility] HospitalComment on above:Performed By: #### CVDTBH #### [facility] [address] [place] [address] Dr. Rosa TranBasophils/100 WBC (Bld)0.4 %Normal0.2-2.0The [facility] Comment on above:Performed By: #### CVDTBH #### [facility] [address] [place] [address] Dr. Rosa Carbajal #0.0 103/ulNormal0.0-0.7The [facility] HospitalComment on above: Performed By: #### CVDTBH #### [facility] [address] [place] [address] Dr. Rosa Dejesusosinophils/100 WBC (Bld)0.1 %Critically low0.9-7.0The [facility] HospitalComment on above:Performed By: #### CVDTBH #### [facility] [address] [place] [address] Dr. Rosa Dejesusrythrocyte distribution width (RBC) [Ratio]13.2 %Volajc54.0-15.[address] [facility] HospitalComment on above:Performed By: #### CVDTBH #### [facility] [address] [place] [address] Dr. Rosa TranHematocrit (Bld) [Volume fraction]36.5 %Critically low42.0-54.0 The [facility] on above:Performed By: #### CVDTBH #### [facility] [address] [place] [address] Dr. Rosa TranHemoglobin (Bld) [Mass/Vol]12.5 g/dLCritically low14.0-18.0The [facility] on above:Performed By: #### CVDTBH #### [facility] [address] [place] [address] Dr. Rosa Sanchez #0.03 10e3/ulNormal0.00-0.03The [facility] HospitalComment on above:Performed By: #### CVDTBH #### [facility] [address] [place] [address] Dr. Rosa Sanchez %0.3 %Normal0.0-0.5The [facility] HospitalComment on above: Performed By: #### CVDTBH #### [facility] [address] [place] [address] Dr. Rosa Martinez #1.7 103/ulNormal1.2-3.8The [facility] HospitalComment on above:Performed By: #### CVDTBH #### [facility] [address] [place] [address] Dr. Roas Bolandhocytes/100 WBC (Bld)16.2 %Critically low20.5-60.0The [facility] HospitalComment on above:Performed By: #### CVDTBH #### [facility] [address] [place] [address] Dr. Rosa Encarnacion DIFF REQNONormalThe St. [facility] HospitalComment on above: Performed By: #### CVDTBH #### [facility] [address] [place] [address] Dr. Rosa Delacruz (RBC) [Entitic mass]30.8 eoXsuupo49.9-34.0The [facility] HospitalComment on above:Performed By: #### CVDTBH #### [facility] [address] [place] [address] Dr. Rosa Peterson (RBC) [Mass/Vol]34.2 g/yMOdaele87.9-35.2The [facility] HospitalComment on above:Performed By: #### CVDTBH #### [facility] [address] [place] [address] Dr. Rosa Stone (RBC) [Entitic vol]89.9 mQFbbskw38.0-94.0The [facility] HospitalComment on above:Performed By: #### CVDTBH #### [facility] [address] [place] [address] Dr. Rosa Hatch #0.7 103/ulNormal0.3-0.8The [facility] HospitalComment on above:Performed By: #### CVDTBH #### [facility] [address] [place] [address] Dr. Rosa Staffordocytes/100 WBC (Bld)7.2 %Normal1.7-12.0The [facility] Comment on above:Performed By: #### CVDTBH #### [facility] [address] [place] [address] Dr. Rosa Nevarez #7.7 103/ulCritically high1.4-6.5The [facility] Comment on above:Performed By: #### CVDTBH #### [facility] [address] [place] [address] Dr. Rosa Vargasutrophils/100 WBC (Bld)75.8 %Critically high43.0-75.0The [facility] HospitalComment on above:Performed By: #### CVDTBH #### [facility] [address] [place] [address] Dr. Rosa Wilson mean volume (Bld) [Entitic vol]9.1 fLCritically low 9.5-13.5The [facility] HospitalComment on above:Performed By: #### CVDTBH #### [facility] [address] [place] [address] Dr. Rosa TranPLT223 103/wrMdbnnz110-264Vpv St. [facility] HospitalComment on above: Performed By: #### CVDTBH #### [facility] [address] [place] [address] Dr. Rosa TranRBC4.06 106/ulCritically low4.70-6.10The [facility] HospitalComment on above:Performed By: #### CVDTBH #### [facility] [address] [place] [address] Dr. Rosa TranWBC10.2 103/ulNormal4.0-11.0The [facility] HospitalComment on above:Performed By: #### CVDTBH #### [facility] [address] [address] [address] Rosa Martins #0.0 103/ulNormal0.0-0.1The [facility] HospitalComment on above:Performed By: #### CBC #### [facility] [address] [place] [address] Dr. Rosa TranBasophils/100 WBC (Bld)0.2 %Normal0.2-2.0The [facility] Comment on above:Performed By: #### CBC #### [facility] [address] [place] [address] Dr. Rosa Carbajal #0.0 103/ulNormal0.0-0.7The [facility] HospitalComment on above: Performed By: #### CBC #### [facility] [address] [place] [address] Dr. Rosa Dejesusosinophils/100 WBC (Bld)0.0 %Critically low0.9-7.0The [facility] HospitalComment on above:Performed By: #### CBC #### [facility] [address] [place] [address] Dr. Rosa Dejesusrythrocyte distribution width (RBC) [Ratio]13.2 %Aighpz24.0-15.0 [facility] on above:Performed By: #### CBC #### [facility] [address] [place] [address] Dr. Rosa TranHematocrit (Bld) [Volume fraction]35.1 %Critically low42.0-54.[address] [facility] HospitalComment on above:Performed By: #### CBC #### [facility] [address] [place] [address] Dr. Rosa TranHemoglobin (Bld) [Mass/Vol]11.9 g/dLCritically low14.0-18.0The [facility] on above:Performed By: #### CBC #### [facility] [address] [place] [address] Dr. Rosa Sanchez #0.03 10e3/ulNormal0.00-0.03The [facility] on above:Performed By: #### CBC #### [facility] [address] [address] [address] Rosa Sanchez %0.3 %Normal0.0-0.5The [facility] HospitalComformerly [facility] on above: Performed By: #### CBC #### [facility] [address] [address] [address] Rosa Martinez #1.2 103/ulNormal1.2-3.8The [facility] HospitalComment on above:Performed By: #### CBC #### [facility] [address] [place] [address] Dr. Rosa Bolandhocytes/100 WBC (Bld)13.3 %Critically low20.5-60.0The [facility] on above:Performed By: #### CBC #### [facility] [address] [place] [address] Dr. Rosa SanchezUAL DIFF REQNONormalThe St. [facility] HospitalComment on above: Performed By: #### CBC #### [facility] [address] [place] [address] Dr. Rosa Peterson (RBC) [Entitic mass]30.6 klPbjwmg15.9-34.0The [facility] on above:Performed By: #### CBC #### [facility] [address] [place] [address] Dr. Rosa Peterson (RBC) [Mass/Vol]33.9 g/uTMotnff40.9-35.2The [facility] on above:Performed By: #### CBC #### [facility] [address] [place] [address] Dr. Rosa Peterson (RBC) [Entitic vol]90.2 iLFudxai15.0-94.0The [facility] HospitalComformerly [facility] on above:Performed By: #### CBC #### [facility] [address] [place] [address] Dr. Rosa Hatch #0.5 103/ulNormal0.3-0.8The [facility] HospitalComment on above:Performed By: #### CBC #### [facility] [address] [address] [address] Rosa Staffordocytes/100 WBC (Bld)5.4 %Normal1.7-12.0[facility] Comment on above:Performed By: #### CBC #### [facility] [address] [place] [address] Dr. Rosa Nevarez #7.3 103/ulCritically high1.4-6.5ThSelect Medical [facility] Comment on above:Performed By: #### CBC #### [facility] [address] [place] [address] Dr. Rosa Vargasutrophils/100 WBC (Bld)80.8 %Critically high43.0-75.0[facility] HospitalComment on above:Performed By: #### CBC #### [facility] [address] [place] [address] Dr. Rosa TranPlatelet mean volume (Bld) [Entitic vol]10.0 fLNormal9.5-13.5The [facility] HospitalComment on above:Performed By: #### CBC #### [facility] [address] [place] [address] Dr. Rosa TranPLT225 103/bcLcdlrf795-540Yra St[facility] HospitalComment on above: Performed By: #### CBC #### [facility] [address] [place] [address] Dr. Rosa TranRBC3.89 106/ulCritically low4.70-6.10The [facility] HospitalComment on above:Performed By: #### CBC #### [facility] [address] [place] [address] Dr. Rosa TranWBC9.1 103/ulNormal4.0-11.0The [facility] HospitalComment on above: Performed By: #### CBC #### [facility] [address] [place] [address] Dr. Rosa Mcgregorvid-19 PCR (CVDTBH)on 08-91-0950MGEB-CoV-2 (COVID-19) RNA VIKAS+probe Ql (Unsp spec)Not detectedNormalNOT DETECTEDDayton Osteopathic Hospital Comment on above:Result Comment: When diagnostic testing is negative, the [...] for this test is supported by the [employer] Clerk of Health and Human Service's declaration that circumstances exist to justify the emergency use of in vitro diagnostics for the detection and/or diagnosis of the virus that causes COVID-19. This EUA will remain in effect for the duration of the COVID-19 declaration justifying emergency of IVDs, unless it is terminated or revoked by the FDA (after which the test may no longer be used).Performed By: #### CVDTBH #### [facility] [address] [place] [address] Dr. Rosa TranDRUG SCREEN RAPID (URINE)on [id number]I [facility] HospitalComment on above:Performed By: #### CVDTBH #### [facility] [address] [place] [address] Dr. Rosa TrnaBARNegativeNormalNEGATIVEDayton Osteopathic HospitalComment on above: Performed By: #### CVDTBH #### [facility] [address] [place] [address] Dr. Rosa TranBUPNegativeNormalNEGATIVEDayton Osteopathic HospitalComment on above: Performed By: #### CVDTBH #### [facility] [address] [place] [address] Dr. Rosa TranBZONegativeNormalNEGATIVEDayton Osteopathic HospitalComment on above: Performed By: #### CVDTBH #### [facility] [address] [place] [address] Dr. Rosa TranCOCNegativeNormalNEGATIVEPike Community Hospitalment on above: Performed By: #### CVDTBH #### [facility] [address] [place] [address] Dr. Rosa SimmonsKettering Health MiamisburgComformerly [facility] on above: Result Comment: AMP (Amphetamine): 500ng/mL, BAR (Barbituates): 200 ng/mL, BZO (Benzodiazepines): 150 ng/mL, BUP (Buprenorphine): 10 ng/mL, JOSE LUIS (Cocaine): 150 ng/mL, mAMP (Methamphetamine): 500 ng/mL, MTD (Methadone): 200 ng/mL, OPI (Opiates): 100 ng/mL, OXY (Oxycodone): 100 ng/mL, PCP (Phencyclidine): 25 ng/mL, PPX (Propoxyphene): 300 ng/mL, THC (Cannabinoids): 50 ng/mL, TCA (Trycyclic Antidepressants): 300 ng/mLPerformed By: #### CVDTBH #### [facility] [address] [place] [address] Dr. Rosa TranDRUG CUT HEADERDRUG CLASS TEST SYSTEM CUT-OFF CONCENTRATIONS ARE FOLLOWS:NormalUC Health on above:Performed By: #### CVDTBH #### [facility] [address] [place] [address] Dr. Rosa TranmAMPNegativeNoalNEGATIVEUC Health on above: Performed By: #### CVDTBH #### [facility] [address] [place] [address] Dr. Rosa TranMTDNegativeNormalNEGATIVEDayton Osteopathic HospitalComformerly [facility] on above: Performed By: #### CVDTBH #### [facility] [address] [place] [address] Dr. Rosa QuinteroINegativeNormalNEGATIVEUC Health on above: Performed By: #### CVDTBH #### [facility] [address] [place] [address] Dr. Rosa TranOXYNegativeNormalNEGATIVEDayton Osteopathic HospitalComformerly [facility] on above: Performed By: #### CVDTB #### [facility] [address] [address] [address] Rosa TranPCPNegativeNormalNEGATIVEThe St. Vincent HospitalComment on above: Performed By: #### CVDTBH #### [facility] [address] [place] [address] Dr. Rosa TranPPXNegativeNormalNEGATIVEDayton Osteopathic HospitalComment on above: Performed By: #### CVDTBH #### [facility] [address] [address] [address] Rosa TranTCAPositiveAbnormalNEGATIVEThe St. Vincent HospitalComment on above: Performed By: #### CVDTBH #### [facility] [address] [address] [address] Rosa TranTHCPositiveAbnormalNEGATIVEDayton Osteopathic HospitalComment on above: Performed By: #### CVDTBH #### [facility] [address] [place] [address] Dr. Rosa TranLACTATE/LACTIC ACIDon [id number] [Moles/Vol]1.4 mmol/L Normal0.4-2.0The St. Vincent HospitalComment on above:Performed By: #### CVDTBH #### [facility] [address] [place] [address] Dr. Rosa TranLIPASEon 39-11-6599Bkwddg [Catalytic activity/Vol]56.0 U/L Critically low73.0-393.0The St. Vincent HospitalComment on above:Performed By: #### CMP, LIPA ####[facility] [address] [address]Dr. Rosa TranPROF 14(COMP METB)on 59-58-5794Vhwltkj [Mass/Vol]3.5 g/dL Normal3.4-5.0The St. Vincent HospitalComment on above:Performed By: #### CMP, LIPA ####[facility] [address] [address]Dr. Rosa TranAlbumin/Globulin [Mass ratio]1.2 {ratio}NormalThe [facility] Comment on above:Performed By: #### CMP, LIPA ####[facility] [address] [address]Dr. Yilan ChangALP [Catalytic activity/Vol]72 U/OQmfbwa27-222Ivj St. [facility] HospitalComment on above:Performed By: #### CMP, LIPA ####[facility] [address] [address]Dr. Yilan ChangALT [Catalytic activity/Vol]27 U/L Jpqsnu77-85Edl St. [facility] HospitalComment on above:Performed By: #### CMP, LIPA ####[facility] [address] [place], [place] [address]Dr. Yilan ChangAnion gap [Moles/Vol]11.9 mmol/LNormalThe St. Vincent HospitalComment on above:Performed By: #### CMP, LIPA ####[facility] L[address]ma[address] [place], [place] [address]Dr. Yilan ChangAST [Catalytic activity/Vol]22 U/L Qkhwsk76-51Gct St[facility] HospitalComment on above:Performed By: #### CMP, LIPA ####[facility] Myszjiorcg[address] [place], [place] [address]Dr. Yilan ChangBilirubin [Mass/Vol]0.3 mg/dLNormal0.2-1.0The [facility] Comment on above:Performed By: #### CMP, LIPA ####[facility] [address]fjc[address]or[address] [place], [place] [address]Dr. Yilan ChangCalcium [Mass/Vol]8.5 mg/dLNormal8.5-10.1The [facility] HospitalComment on above:Performed By: #### CMP, LIPA ####[facility] [address]rdjypenmb[address] [place], [place] [address]Dr. Yilan ChangChloride [Moles/Vol]108 mmol/L Critically ixin68-799Syx St. [facility] HospitalComment on above:Performed By: #### CMP, LIPA ####[facility] Lykxetijmy[address] [place], [place] [address]Dr. Yilan ChangCO2 [Moles/Vol]26.9 mmol/MVrdgoe99.0-32.0The [facility] HospitalComment on above:Performed By: #### CMP, LIPA ####[facility] [address]qhgpvgh[address] [place], [place] [address]Dr. Yilan ChangCreatinine [Mass/Vol]0.69 mg/dLCritically low0.70-1.30The St[facility] HospitalComment on above:Performed By: #### CMP, LIPA ####[facility] Qrwvckaenr[address] [place], [place] [address]Dr. Yilan ChangEGFR-AF YEMENI>60Normal>=60The [facility] HospitalComformerly [facility] on above:Performed By: #### CMP, LIPA ####[facility] Tbdwuxshif[address] [place], [place] [address]Dr. Yilan ChangEGFR- NON AF YEMENI>60Normal>=60The [facility] HospitalComment on above:Performed By: #### CMP, LIPA ####[facility] [address]myejypngr[address] [place], [place] [address]Dr. Yilan ChangGlobulin (S) [Mass/Vol]2.9 g/dLNormalThSelect Medical TriHealth Rehabilitation HospitalComformerly [facility] on above:Performed By: #### CMP, LIPA ####[facility] [address]eajrvfsjv[address] [place], [place] [address]Dr. Yilan ChangGlucose [Mass/Vol]113 mg/dLCritically nntz64-779Rck [facility] HospitalComformerly [facility] on above: Performed By: #### CMP, LIPA ####[facility] Vlpmqkbyxl[address] [place], [place] [address]Dr. Yilan ChangPotassium [Moles/Vol]3.8 mmol/LNormal 3.5-5.1The [facility] HospitalComment on above:Performed By: #### CMP, LIPA ####[facility] Eqrgzheinc[address] [place], [place] [address]Dr. Yilan ChangProtein [Mass/Vol]6.4 g/dLNormal6.4-8.2The St[facility] HospitalComment on above:Performed By: #### CMP, LIPA ####[facility] [address] [id number]. Rosa ChangSodium [Moles/Vol]143 mmol/LNormal 136-145The St. [facility] HospitalComment on above:Performed By: #### CMP, LIPA ####[facility] [address] [id number]. Rosa ChangUrea nitrogen [Mass/Vol]8.0 mg/dLNormal7.0-18.0The [facility] Comment on above:Performed By: #### CMP, LIPA ####[facility] [address] [address]Dr. Rosa ChangUrea nitrogen/Creatinine [Mass ratio]11.6 mg/mgNormalThe St. Vincent HospitalComment on above:Performed By: #### CMP, LIPA ####[facility] [address] [address]Dr. Rosa ChangAlbumin [Mass/Vol]3.2 g/dL Critically low3.4-5.0The [facility] HospitalComment on above:Performed By: #### CVDTBH #### [facility] [address] [address] [address] Rosa TranAlbumin/Globulin [Mass ratio]1.2 {ratio}NormalThe St. Vincent HospitalComment on above:Performed By: #### CVDTBH #### [facility] [address] [address] [address] Rosa Santoyo [Catalytic activity/Vol]75 U/PHrzbca35-897Jka St. [facility] HospitalComment on above:Performed By: #### CVDTBH #### [facility] [address] [address] [address] Rosa Macdonald [Catalytic activity/Vol]24 U/XYeiiiy99-24Hyo St[facility] HospitalComment on above:Performed By: #### CVDTBH #### [facility] [address] [address] [address] Rosa Diaz gap [Moles/Vol]10.7 mmol/LNormalThe [facility] Comment on above:Performed By: #### CVDTBH #### [facility] [address] [address] [address] Rosa TranAST [Catalytic activity/Vol]18 U/WWtczap57-63Vkq St. [facility] HospitalComment on above:Performed By: #### CVDTBH #### [facility] [address] [address] [address] Rosa TranBilirubin [Mass/Vol]0.4 mg/dLNormal0.2-1.0The [facility] Comment on above:Performed By: #### CVDTBH #### [facility] [address] [address] [address] Rosa TranCalcium [Mass/Vol]8.2 mg/dLCritically low8.5-10.1The [facility] HospitalComment on above:Performed By: #### CVDTBH #### [facility] [address] [place] [address] Dr. Rosa TranChloride [Moles/Vol]106 mmol/YKlgiir90-158Hne [facility] Comment on above:Performed By: #### CVDTBH #### [facility] [address] [place] [address] Dr. Rosa TranCO2 [Moles/Vol]24.8 mmol/HMgqiud50.0-32.0The [facility] Comment on above:Performed By: #### CVDTBH #### [facility] [address] [place] [address] Dr. Rosa TranCreatinine [Mass/Vol]0.74 mg/dLNormal0.70-1.30The [facility] HospitalComment on above:Performed By: #### CVDTBH #### [facility] [address] [address] [address] Lee ChangEGFR-AF YEMENI>60Normal>=60The [facility] HospitalComment on above:Performed By: #### CVDTBH #### [facility] [address] [place] [address] Dr. Rosa DejesusGFR-NON AF YEMENI>60Normal>=60The [facility] HospitalComment on above:Performed By: #### CVDTBH #### [facility] [address] [address] [address] Rosa TranGlobulin (S) [Mass/Vol]2.7 g/dLNoAvita Health System Ontario HospitalComment on above:Performed By: #### CVDTBH #### [facility] [address] [address] [address] Rosa TranGlucose [Mass/Vol]111 mg/dLCritically vcmr46-563Slr [facility] HospitalComment on above:Performed By: #### CVDTBH #### [facility] [address] [address] [address] Rosa TranPotassium [Moles/Vol]3.5 mmol/LNormal3.5-5.1The [facility] Comment on above:Performed By: #### CVDTBH #### [facility] [address] [place] [address] Dr. Rosa TranProtein [Mass/Vol]5.9 g/dLCritically low6.4-8.2The [facility] HospitalComment on above:Performed By: #### CVDTBH #### [facility] [address] [address] [address] Rosa TarnSodium [Moles/Vol]138 mmol/EPztzry316-462Sco [facility] Comment on above:Performed By: #### CVDTBH #### [facility] [address] [place] [address] Dr. Rosa TranUrea nitrogen [Mass/Vol]9.0 mg/dLNormal7.0-18.0The [facility] HospitalComment on above:Performed By: #### CVDTBH #### [facility] [address] [address] [address] Rosa TranUrea nitrogen/Creatinine [Mass ratio]12.2 mg/mgNoAvita Health System Ontario HospitalComment on above:Performed By: #### CVDTBH #### [facility] [address] [place] [address] Dr. Rosa TranAMYLASEon 64-40-4607Ewmscfe [Catalytic activity/Vol]75 U/LNormal 25-115The St. [facility] HospitalComment on above:Performed By: #### JASON, CMP, LIPA ####[facility] [address] [address]Dr. Rosa Gardner AUTO DIFFon [id number] #0.1 103/ulNormal0.0-0.1The St. [facility] HospitalComment on above:Performed By: #### CBC #### [facility] [address] [address] [address] Rosa TranBasophils/100 WBC (Bld)0.5 %Normal0.2-2.0The [facility] Comment on above:Performed By: #### CBC #### [facility] [address] [address] [address] Rosa Carbajal #0.2 103/ulNormal0.0-0.7The [facility] HospitalComment on above: Performed By: #### CBC #### [facility] [address] [address] [address] Rosa Dejesusosinophils/100 WBC (Bld)1.4 %Normal0.9-7.0The [facility] Comment on above:Performed By: #### CBC #### [facility] [address] [place] [address] Dr. Rosa Dejesusrythrocyte distribution width (RBC) [Ratio]13.2 %Hsisfi80.0-15.[address] [facility] HospitalComment on above:Performed By: #### CBC #### [facility] [address] [address] [address] Rosa TranHematocrit (Bld) [Volume fraction]42.7 %Zqbnar54.0-54.0The [facility] HospitalComment on above:Performed By: #### CBC #### [facility] [address] [address] [address] Rosa TranHemoglobin (Bld) [Mass/Vol]14.5 g/zGLpewds51.0-18.0The [facility] HospitalComment on above:Performed By: #### CBC #### [facility] [address] [place] [address] Dr. Rosa Sanchez #0.03 10e3/ulNormal0.00-0.03The [facility] HospitalComment on above:Performed By: #### CBC #### [facility] [address] [place] [address] Dr. Rosa Sanchez %0.2 %Normal0.0-0.5The [facility] HospitalComment on above: Performed By: #### CBC #### [facility] [address] [place] [address] Dr. [facility] AlmeidaGOWAN[facility] #2.0 103/ulNormal1.2-3.8The [facility] HospitalComment on above:Performed By: #### CBC #### [facility] [address] [place] [address] Dr. Rosa Bolandhocytes/100 WBC (Bld)16.1 %Critically low20.5-60.0The [facility] on above:Performed By: #### CBC #### [facility] [address] [place] [address] Dr. Rosa SanchezUAL DIFF REQNONormalThe St. [facility] HospitalComment on above: Performed By: #### CBC #### [facility] [address] [place] [address] Dr. Rosa Peterson (RBC) [Entitic mass]30.4 roKlkrmr35.9-34.0The [facility] HospitalComment on above:Performed By: #### CBC #### [facility] [address] [place] [address] Dr. Rosa Peterson (RBC) [Mass/Vol]34.0 g/rFUkiwxp25.9-35.2The [facility] HospitalComformerly [facility] on above:Performed By: #### CBC #### [facility] [address] [place] [address] Dr. Rosa Peterson (RBC) [Entitic vol]89.5 bAZrrqzn09.0-94.0The [facility] HospitalComment on above:Performed By: #### CBC #### [facility] [address] [address] [address] Rosa Hatch #0.6 103/ulNormal0.3-0.8The [facility] HospitalComment on above:Performed By: #### CBC #### [facility] [address] [address] [address] Rosa Staffordocytes/100 WBC (Bld)4.6 %Normal1.7-12.0[facility] Comment on above:Performed By: #### CBC #### [facility] [address] [place] [address] Dr. Rosa Nevarez #9.7 103/ulCritically high1.4-6.5The [facility] Comment on above:Performed By: #### CBC #### [facility] [address] [place] [address] Dr. Rosa Vargasutrophils/100 WBC (Bld)77.2 %Critically high43.0-75.0The [facility] HospitalComment on above:Performed By: #### CBC #### [facility] [address] [place] [address] Dr. Rosa Wilson mean volume (Bld) [Entitic vol]9.7 fLNormal9.5-13.5The [facility] HospitalComment on above:Performed By: #### CBC #### [facility] [address] [place] [address] Dr. Rosa TranPLT284 103/yeEdbeer439-991Gox St. [facility] HospitalComment on above: Performed By: #### CBC #### [facility] [address] [place] [address] Dr. Rosa TranRBC4.77 106/ulNormal4.70-6.10The [facility] HospitalComment on above:Performed By: #### CBC #### [facility] [address] [place] [address] Dr. Rosa TranWBC12.5 103/ulCritically high4.0-11.0The [facility] HospitalComment on above:Performed By: #### CBC #### [facility] [address] [address] [address] Rosa TranCovid-19 PCR (CVDTB)on 50-77-5987JTDA-CoV-2 (COVID-19) RNA VIKAS+probe Ql (Unsp spec)Not detectedNormalNOT DETECTEDDayton Osteopathic Hospital Comment on above:Result Comment: When diagnostic testing is negative, the [...] for this test is supported by the [place] of Health and Human Service's declaration that circumstances exist to justify the emergency use of in vitro diagnostics for the detection and/or diagnosis of the virus that causes COVID-19. This EUA will remain in effect for the duration of the COVID-19 declaration justifying emergency of IVDs, unless it is terminated or revoked by the FDA (after which the test may no longer be used).Performed By: #### CVDTBH #### [facility] [address] [place] [address] Dr. Rosa TranDRUG SCREEN RAPID (URINE)on 27-49-2084DFEDswkldkhEipvetPTNACWEK The St[facility] HospitalComment on above:Performed By: #### DRUGRPD ####[facility] [address] [place], [place] [address]Dr. Rosa TranBAR NegativeNormalNEGATIVEDayton Osteopathic HospitalComment on above:Performed By: #### DRUGRPD ####[facility] [address] [address]Dr. Rosa TranBUPNegativeNormalNEGATIVEDayton Osteopathic HospitalComment on above:Performed By: #### DRUGRPD ####[facility] [address] [place], [place] [address]Dr. Rosa TranBZONegativeNormalNEGATIVEDayton Osteopathic HospitalComment on above:Performed By: #### DRUGRPD ####[facility] [address]vcajnebx[address] [place], [place] [address]Dr. Rosa TranCOCNegative NormalNEGATIVEDayton Osteopathic HospitalComment on above:Performed By: #### DRUGRPD ####[facility] [address]xvkxxx[address] [place], [place] [address]Dr. Rosa TranCUT-OFFSSEE BELOWNoalThe St. [facility] HospitalComment on above:Result Comment: AMP (Amphetamine): 500ng/mL, BAR (Barbituates): 200 ng/mL, BZO (Benzodiazepines): 150 ng/mL, BUP (Buprenorphine): 10 ng/mL, JOSE LUIS (Cocaine): 150 ng/mL, mAMP (Methamphetamine): 500 ng/mL, MTD (Methadone): 200 ng/mL, OPI (Opiates): 100 ng/mL, OXY (Oxycodone): 100 ng/mL, PCP (Phencyclidine): 25 ng/mL, PPX (Propoxyphene): 300 ng/mL, THC (Cannabinoids): 50 ng/mL, TCA (Trycyclic Antidepressants): 300 ng/mLPerformed By: #### DRUGRPD ####[facility] Egkkourixl[address] [place], [place] [address]Dr. Rosa TranDRUG CUT HEADERDRUG CLASS TEST SYSTEM CUT-OFF CONCENTRATIONS ARE FOLLOWS:NormalThe [facility] Cleveland-Fairhillment on above:Performed By: #### DRUGRPD ####[facility] Urxbnzgzgh[address] [place], [place] [address]Dr. Rosa TranmAMP NegativeNormalNEGATIVEDayton Osteopathic HospitalComment on above:Performed By: #### DRUGRPD ####[facility] Rnwjkkoiyb[address] [place], [place] [address]Dr. Rosa TranMTDNegativeNormalNEGATIVEDayton Osteopathic HospitalComment on above:Performed By: #### DRUGRPD ####[facility] [address]cbzrtup[address] [place], [place] [address]Dr. Rosa TranOPINegativeNormalNEGATIVEDayton Osteopathic HospitalComment on above:Performed By: #### DRUGRPD ####[facility] Ehwxteoics[address] [place], [place] [address]Dr. Yilan ChangOXYNegative NormalNEGATIVEPeoples Hospital HospitalComment on above:Performed By: #### DRUGRPD ####[facility] Ktzhgacoim[address] [place], [place] [address]Dr. Yiyoselin TranPCPNegativeNormalNEGATIVEPeoples Hospital HospitalComment on above: Performed By: #### DRUGRPD ####[facility] [address]ccvujmnr[address] [place], [place] [address]Dr. Yilan ChangPPXNegativeNormalNEGATIVEThe [facility] HospitalComment on above:Performed By: #### DRUGRPD ####[facility] Rnsgrqjdtg[address] [place], [place] [address]Dr. Robynyoselin MarcTCAPositive AbnormalNEGATIVEDayton Osteopathic HospitalComment on above:Performed By: #### DRUGRPD ####[facility] Bjwrgtvohf[address] [place], [place] [address]Dr. Robynyoselin MarcTHCPositiveAbnormalNEGATIVEDayton Osteopathic HospitalComment on above: Performed By: #### DRUGRPD ####[facility] [address]zvhqeh[address] [place], [place] [address]Dr. Rosa ChangLACTATE/LACTIC ACIDon 57-78-8088Fghndnj [Moles/Vol]1.8 mmol/LNormal0.4-2.0[facility] HospitalComment on above: Performed By: #### LACT ####[facility] Ydkqryvqzl[address] [place], [place] [address]Dr. Robynyoselin MarcLIPASEon 30-91-8833Mrpxgn [Catalytic activity/Vol]84.0 U/WLxlsgt03.0-393.0The [facility] HospitalComment on above: Performed By: #### JASON, CMP, LIPA ####[facility] Yklsffmmbe[address] [place], [place] [address]Dr. Robynyoseiln ChangPROF 14(COMP METB)on 07-50-2490Anarajm [Mass/Vol]4.2 g/dLNormal3.4-5.0The [facility] HospitalComment on above:Performed By: #### CVDTBH #### [facility] [address] [address] [address] Rosa TranAlbumin/Globulin [Mass ratio]1.3 {ratio}NormalThe St. [facility] HospitalComment on above:Performed By: #### CVDTBH #### [facility] [address] [address] [address] Rosa PatiñoP [Catalytic activity/Vol]104 U/SJkjawn86-114Fka [facility]hillment on above:Performed By: #### CVDTBH #### [facility] [address] [address] [address] Rosa PatiñoT [Catalytic activity/Vol]32 U/YZkcjua78-52Xgk [facility] HospitalComment on above:Performed By: #### CVDTBH #### [facility] [address] [place] [address] Dr. Rosa Greenon gap [Moles/Vol]12.6 mmol/LNormalThe [facility] Comment on above:Performed By: #### CVDTBH #### [facility] [address] [place] [address] Dr. Rosa TranAST [Catalytic activity/Vol]18 U/XRmxojh96-80Pob [facility]-Fairhillment on above:Performed By: #### CVDTBH #### [facility] [address] [place] [address] Dr. Rosa TranBilirubin [Mass/Vol]0.3 mg/dLNormal0.2-1.0The [facility] Comment on above:Performed By: #### CVDTBH #### [facility] [address] [place] [address] Dr. Rosa TranCalcium [Mass/Vol]9.3 mg/dLNormal8.5-10.1The [facility] Comment on above:Performed By: #### CVDTBH #### [facility] [address] [address] [address] Rosa TranChloride [Moles/Vol]104 mmol/TYejzxb28-221Fek [facility] Comment on above:Performed By: #### CVDTBH #### [facility] [address] [address] [address] Rosa TranCO2 [Moles/Vol]26.2 mmol/BUhptwc79.0-32.0The [facility] Comment on above:Performed By: #### CVDTBH #### [facility] [address] [address] [address] Rosa TranCreatinine [Mass/Vol]1.00 mg/dLNormal0.70-1.30The [facility] HospitalComment on above:Performed By: #### CVDTBH #### [facility] [address] [address] [address] Lee ChangEGFR-AF YEMENI>60Normal>=60The [facility] HospitalComment on above:Performed By: #### CVDTBH #### [facility] [address] [place] [address] Dr. Rosa DejesusGFR-NON AF YEMENI>60Normal>=60The [facility] HospitalComment on above:Performed By: #### CVDTBH #### [facility] [address] [address] [address] Rosa TranGlobulin (S) [Mass/Vol]3.3 g/dLNormalThe St. [facility] HospitalComment on above:Performed By: #### CVDTBH #### [facility] [address] [address] [address] Rosa TranGlucose [Mass/Vol]136 mg/dLCritically pxjx58-598Jbd [facility] HospitalComment on above:Performed By: #### CVDTBH #### [facility] [address] [address] [address] Rosa TranPotassium [Moles/Vol]3.8 mmol/LNormal3.5-5.1The [facility] Comment on above:Performed By: #### CVDTBH #### [facility] [address] [address] [address] Rosa TranProtein [Mass/Vol]7.5 g/dLNormal6.4-8.2The [facility] Comment on above:Performed By: #### CVDTBH #### [facility] [address] [address] [address] Rosa TranSodium [Moles/Vol]139 mmol/OCtfkzc263-834Yly [facility] Comment on above:Performed By: #### CVDTBH #### [facility] [address] [address] [address] Rosa TranUrea nitrogen [Mass/Vol]11.0 mg/dLNormal7.0-18.0The [facility] HospitalComment on above:Performed By: #### CVDTBH #### [facility] [address] [address] [address] Rosa TranUrea nitrogen/Creatinine [Mass ratio]11.0 mg/mgNoAvita Health System Ontario HospitalComment on above:Performed By: #### CVDTBH #### [facility] [address] [address] [address] Rosa TranXR ABD FLAT UP_PA Parish [id number] ABD FLAT UP_PA CHEXAM: XR ABD FLAT UP_PA CH HISTORY: NAUSEA WITH VOMITING, UNSPECIFIED COMPARISON: 08/12/2022.. TECHNIQUE: Chest X-ray, 1 view. Abdominal x-ray, 1 view. FINDINGS: Support devices: None. Bowel: Unremarkable bowel gas pattern. No bowel dilatation. Moderate volume stool throughout much the colon. Additional findings: None. IMPRESSION: No acute abnormality on radiographic exam. Moderate volume stool throughout colon. Electronically authenticated by: GUERA HUNTER Date: 2022-10-10 05:31[facility] HospitalUS V[facility] DOPPLER R Jerry [id number] VENOUS DOPPLER R ARM EXAMINATION: US VENOUS [...] Electronically authenticated by: MISAEL DENNY Date: 2022-10-07 11:01NormalThe St. Vincent HospitalAMMONIAon 22-55-8605Uzewgqg (P) [Moles/Vol]50 umol/LCritically mtgc24-56Rpw St. [facility] HospitalComment on above:Performed By: #### AMM #### [facility] [address] [address] [address] Rosa TranAMYLASEon 10-95-8143Svculbs [Catalytic activity/Vol]39 U/LNormal 25-115The St. [facility] HospitalComment on above:Performed By: #### JASON, CMP, LIPA ####[facility] [address] [address]Dr. Rosa ChangCBC AUTO DIFFon [id number] #0.1 103/ulNormal0.0-0.1The St. [facility] HospitalComment on above:Performed By: #### CBC ####[facility] [address] [address]Dr.Robynlan ChangBasophils/100 WBC (Bld)0.7 %Normal0.2-2.0The [facility]. [facility] HospitalComment on above:Performed By: #### CBC ####[facility] [address] [address]Dr.Yilan ChangEO #0.1 103/ulNormal0.0-0.7The St. [facility] HospitalComment on above:Performed By: #### CBC ####[facility] [address] [address]Dr.Robynlan ChangEosinophils/100 WBC (Bld)0.7 %Critically low0.9-7.0The [facility] HospitalComment on above:Performed By: #### CBC ####[facility] [address] [address]Dr. Robynlan ChangErythrocyte distribution width (RBC) [Ratio]13.2 %Vlpoiu15.0-15.0The [facility]. [facility] HospitalComment on above:Performed By: #### CBC ####[facility] [address] [address]Dr.Rosa TranHematocrit (Bld) [Volume fraction]33.1 %Critically low42.0-54.0The [facility] HospitalComment on above:Performed By: #### CBC ####[facility] Bsfjkawafk[address] [place], [place] [address]Dr.Robynyoselin MarcHemoglobin (Bld) [Mass/Vol]11.2 g/dL Critically low14.0-18.0The [facility] HospitalComment on above:Performed By: #### CBC ####[facility] Arrtjmgijb[address] [place], [place] [address]Dr. Yilan ChangIG #0.02 10e3/ulNormal0.00-0.03The [facility] HospitalComment on above: Performed By: #### CBC ####[facility] Taaweexmql[address] [place], [place] [address]Dr.Robynlan ChangIG %0.3 %Normal0.0-0.5The [facility] HospitalComment on above:Performed By: #### CBC ####[facility] Pcuzhzsrgx[address] [place], [place] [address]Dr.Robynlan ChangLYMPH #2.9 103/ulNormal1.2-3.8The [facility] HospitalComment on above:Performed By: #### CBC ####[facility] Lnengdvrgv[address] [place], [place] [address]Dr. Robynyoselin TranLymphocytes/100 WBC (Bld)39.6 %Slqwlw76.5-60.0The [facility] Comment on above:Performed By: #### CBC ####[facility] Xaighxjjry[address] [place], [place] [address]Dr.Robynlan ChangMANUAL DIFF REQNONormalThe St. Vincent HospitalComment on above:Performed By: #### CBC ####[facility] Tsnbmwdsbk[address] [place], [place] [address]Dr.Rosa TranMCH (RBC) [Entitic mass]30.6 scEekejt63.9-34.0The [facility] HospitalComment on above: Performed By: #### CBC ####[facility] [address] [address]Dr.Rosa MarcMCHC (RBC) [Mass/Vol]33.8 g/dLNormal 29.9-35.2The [facility] HospitalComment on above:Performed By: #### CBC ####[facility] Qawmujjgut4[address] [place], [place] [address]Dr. Rosa TranMCV (RBC) [Entitic vol]90.4 hYEjxlxh47.0-94.0The [facility] Comment on above:Performed By: #### CBC ####[facility] Uuhozbktrc[address] [place], [place] [address]Dr.Rosa TranMONO #0.6 103/ulNormal0.3-0.8 [facility] HospitalComment on above:Performed By: #### CBC ####[facility] Jdrljjokla07[address] [place], [place] [address]Dr.Rosa Tran Monocytes/100 WBC (Bld)7.6 %Normal1.7-12.0The [facility] HospitalComment on above: Performed By: #### CBC ####[facility] Tnnhremcmk[address] [place], [place] [address]Dr.Rosa TranNEUT #3.8 103/ulNormal1.4-6.5The [facility] HospitalComment on above:Performed By: #### CBC ####[facility] Ztflfinzkr[address] [place], [place] [address]Dr.Rosa TranNeutrophils/100 WBC (Bld)51.1 %Qmlrga22.0-75.0The [facility] HospitalComment on above:Performed By: #### CBC ####[facility] Vtmnesplie016[address] [place], [place] [address]Dr.Rosa TranPlatelet mean volume (Bld) [Entitic vol]9.7 fLNormal9.5-13.[address] [facility] HospitalComment on above:Performed By: #### CBC ####[facility] Ablwsslfju006[address] [place], [place] [address]Dr.Rosa TranPLT208 103/jwWqlnsp510-855Wbe [facility] on above:Performed By: #### CBC ####[facility] [address] [address]Dr. Rosa TranRBC3.66 106/ulCritically low4.70-6.10The [facility] on above:Performed By: #### CBC ####[facility] [address]uc[address] [address]Dr.Rosa TranWBC7.3 103/ulNormal4.0-11.0The [facility] on above:Performed By: #### CBC ####[facility] Jiuyewlwhh[address] [place], [place] [address]Dr.Rosa TranLIPASEon 07-14-1204Ffvpzg [Catalytic activity/Vol]60.0 U/LCritically low73.0-393.0The [facility] on above:Performed By: #### JASON, CMP, LIPA ####[facility] Dpwlkzcltz[address] [place], [place] [address]Dr. Rosa TranPROF 14(COMP METB)on 56-62-4987Hcvueef [Mass/Vol]2.9 g/dLCritically low3.4-5.0The [facility] on above:Performed By: #### JASON, CMP, LIPA ####[facility] Cnwnduhtsf196[address] [place], [place] [address]Dr. Rosa Tran Albumin/Globulin [Mass ratio]1.2 {ratio}NormalThe [facility] on above:Performed By: #### JASON, CMP, LIPA ####[facility] [address]rs[address] [address]Dr. Rosa TranALP [Catalytic activity/Vol] 64 U/TRaqntc17-121Lqw [facility] on above:Performed By: #### JASON, CMP, LIPA ####[facility] [address] [address]Dr. Rosa TranALT [Catalytic activity/Vol]41 U/LZomlmn48-50Krn [facility] on above:Performed By: #### JASON, CMP, LIPA ####[facility] [address] [address]Dr. Yilan ChangAnion gap [Moles/Vol]8.7 mmol/LNormalThe St. [facility] HospitalComment on above:Performed By: #### JASON, CMP, LIPA ####[facility] [address] [address]Dr. Yilan ChangAST [Catalytic activity/Vol]31 U/L Hsywnx96-18Ypk St[facility] HospitalComment on above:Performed By: #### JASON, CMP, LIPA ####[facility] Uiwltrxrit[address] [place], [place] [address]Dr. Yilan ChangBilirubin [Mass/Vol]0.5 mg/dLNormal0.2-1.0The [facility] HospitalComment on above:Performed By: #### JASON, CMP, LIPA ####[facility] Uraamrjwkv[address] [place], [place] [address]Dr. Yilan ChangCalcium [Mass/Vol]8.3 mg/dLCritically low8.5-10.1The [facility] HospitalComment on above: Performed By: #### JASON, CMP, LIPA ####[facility] Lyaghnjnrb[address] [place], [place] [address]Dr. Yilan ChangChloride [Moles/Vol]110 mmol/L Critically ekpy39-223Rnr [facility] HospitalComment on above:Performed By: #### JASON, CMP, LIPA ####[facility] Lkfsxigazv[address] [place], [place] [address]Dr. Yilan ChangCO2 [Moles/Vol]27.0 mmol/XHtlkcf02.0-32.0The [facility] HospitalComment on above:Performed By: #### JASON, CMP, LIPA ####[facility] Diklgutghv[address] [place], [place] [address]Dr. Yilan ChangCreatinine [Mass/Vol]0.77 mg/dLNormal0.70-1.30The [facility] HospitalComment on above: Performed By: #### JASON, CMP, LIPA ####[facility] [address] [address]Dr. Yilan ChangEGFR-AF YEMENI>60Normal>=60The [facility] HospitalComment on above:Performed By: #### JASON, CMP, LIPA ####[facility] [address] [address]Dr. Yilan Tran EGFR-NON AF YEMENI>60Normal>=60The [facility] HospitalComment on above:Performed By: #### JASON, CMP, LIPA ####[facility] Mxguotjzow[address] [place], [place] [address]Dr. Yilan ChangGlobulin (S) [Mass/Vol]2.4 g/dLNormal The [facility] HospitalComment on above:Performed By: #### JASON, CMP, LIPA ####[facility] Awjqsbkpxn[address] [place], [place] [address]Dr. Yilan ChangGlucose [Mass/Vol]128 mg/dLCritically bcua99-793Bzf [facility] Comment on above:Performed By: #### JASON, CMP, LIPA ####[facility] Fotvdzhefc[address] [place], [place] [address]Dr. Yilan ChangPotassium [Moles/Vol]3.6 mmol/LNormal3.5-5.1The [facility] HospitalComment on above: Performed By: #### JASON, CMP, LIPA ####[facility] Idxgwjpkfg02[address] [place], [place] [address]Dr. Yilan ChangProtein [Mass/Vol]5.3 g/dLCritically low6.4-8.2The [facility] HospitalComment on above:Performed By: #### JASON, CMP, LIPA ####[facility] Hwwcflivzt[address] [place], [place] [address]Dr. Yilan ChangSodium [Moles/Vol]142 mmol/WSjvuua826-585Rsf [facility] HospitalComment on above:Performed By: #### JASON, CMP, LIPA ####[facility] Vzexrssuje[address] [place], [place] [address]Dr. Yilan ChangUrea nitrogen [Mass/Vol]6.0 mg/dLCritically low7.0-18.0The [facility] HospitalComment on above: Performed By: #### JASON, CMP, LIPA ####[facility] [address] [address]DrArgelia TranUrea nitrogen/Creatinine [Mass ratio] 7.8 mg/mgNormalThe St. [facility] HospitalComment on above:Performed By: #### JASON, CMP, LIPA ####[facility] [address]ptg[address] [address]DrArgelia TranAMMONIAon 76-91-8787Uvqfruv (P) [Moles/Vol]37 umol/L Critically qafm97-28Jol [facility] HospitalComment on above:Performed By: #### CVDTBH #### [facility] [address] [place] [address] Dr. Rosa TranAMYLASEon 11-20-9180Biapgbt [Catalytic activity/Vol]42 U/LNormal 25-115The [facility] HospitalComment on above:Performed By: #### JASON, LIPA, CMP ####[facility] [address] [address]DrArgelia HathawayC AUTO DIFFon 75-42-0830DKSG #0.0 103/ulNormal0.0-0.1The [facility] HospitalComment on above:Performed By: #### CVDTBH #### [facility] [address] [address] [address] Rosa TranBasophils/100 WBC (Bld)0.3 %Normal0.2-2.0The [facility] Comment on above:Performed By: #### CVDTBH #### [facility] [address] [address] [address] Rosa Carbajal #0.0 103/ulNormal0.0-0.7The [facility] HospitalComment on above: Performed By: #### CVDTBH #### [facility] [address] [place] [address] Dr. Rosa Dejesusosinophils/100 WBC (Bld)0.1 %Critically low0.9-7.0The [facility] HospitalComment on above:Performed By: #### CVDTBH #### [facility] [address] [place] [address] Dr. Rosa Djeesusrythrocyte distribution width (RBC) [Ratio]13.2 %Oouttk41.0-15.0 [facility] HospitalComment on above:Performed By: #### CVDTBH #### [facility] [address] [place] [address] Dr. Rosa TranHematocrit (Bld) [Volume fraction]32.5 %Critically low42.0-54.[address] [facility] HospitalComment on above:Performed By: #### CVDTBH #### [facility] [address] [place] [address] Dr. Rosa TranHemoglobin (Bld) [Mass/Vol]11.3 g/dLCritically low14.0-18.0The [facility] HospitalComment on above:Performed By: #### CVDTBH #### [facility] [address] [place] [address] Dr. Rosa Sanchez #0.02 10e3/ulNormal0.00-0.03The [facility] HospitalComment on above:Performed By: #### CVDTBH #### [facility] [address] [place] [address] Dr. Rosa Sanchez %0.3 %Normal0.0-0.5The [facility] HospitalComment on above: Performed By: #### CVDTBH #### [facility] [address] [place] [address] Dr. Rosa Martinez #1.8 103/ulNormal1.2-3.8The [facility] HospitalComment on above:Performed By: #### CVDTBH #### [facility] [address] [place] [address] Dr. Rosa Almeidamphocytes/100 WBC (Bld)23.0 %Fgvohs92.5-60.0[facility] HospitalComment on above:Performed By: #### CVDTBH #### [facility] [address] [place] [address] Dr. Rosa Encarnacion DIFF REQNONormalThe St. [facility] HospitalComment on above: Performed By: #### CVDTBH #### [facility] [address] [place] [address] Dr. Rosa Peterson (RBC) [Entitic mass]31.5 ikTatcee93.9-34.0The [facility] HospitalComment on above:Performed By: #### CVDTBH #### [facility] [address] [place] [address] Dr. Rosa Peterson (RBC) [Mass/Vol]34.8 g/jFUhomgw18.9-35.2The [facility] HospitalComment on above:Performed By: #### CVDTBH #### [facility] [address] [place] [address] Dr. Rosa Peterson (RBC) [Entitic vol]90.5 sLWzkoee14.0-94.0The [facility] HospitalComment on above:Performed By: #### CVDTBH #### [facility] [address] [place] [address] Dr. Rosa Hatch #0.5 103/ulNormal0.3-0.8The [facility] HospitalComment on above:Performed By: #### CVDTBH #### [facility] [address] [place] [address] Dr. Rosa Staffordocytes/100 WBC (Bld)6.8 %Normal1.7-12.0The [facility] Comment on above:Performed By: #### CVDTBH #### [facility] [address] [place] [address] Dr. Rosa Nevarez #5.4 103/ulNormal1.4-6.5The [facility] HospitalComment on above:Performed By: #### CVDTBH #### [facility] [address] [place] [address] Dr. Rosa Vargasutrophils/100 WBC (Bld)69.5 %Fdyfxu19.0-75.0The [facility] HospitalComment on above:Performed By: #### CVDTBH #### [facility] [address] [address] [address] Rosa Valerolet mean volume (Bld) [Entitic vol]9.9 fLNormal9.5-13.5The [facility] HospitalComment on above:Performed By: #### CVDTBH #### [facility] [address] [address] [address] Rosa TranPLT197 103/ppQejdjy149-685Glk [facility] HospitalComment on above: Performed By: #### CVDTBH #### [facility] [address] [address] [address] Rosa TranRBC3.59 106/ulCritically low4.70-6.10The [facility] HospitalComment on above:Performed By: #### CVDTBH #### [facility] [address] [address] [address] Rosa TranWBC7.8 103/ulNormal4.0-11.0The [facility] HospitalComment on above: Performed By: #### CVDTBH #### [facility] [address] [address] [address] Rosa TranLIPASEon 56-38-2621Jqsasc [Catalytic activity/Vol]52.0 U/L Critically low73.0-393.0The [facility] HospitalComment on above:Performed By: #### JASON, LIPA, CMP ####[facility] Mbtiebirsz[address] [place], [place] [address]DrArgelia TranPROF 14(COMP METB)on 34-77-6909Kcwnlqe [Mass/Vol]3.3 g/dLCritically low3.4-5.0The [facility] HospitalComment on above:Performed By: #### JASON, LIPA, CMP ####[facility] [address] [address]DrArgelia TranAlbumin/Globulin [Mass ratio]1.4 {ratio}NormalThe St. [facility] HospitalComment on above:Performed By: #### JASON, LIPA, CMP ####[facility] [address] [address]Dr. Yilan ChangALP [Catalytic activity/Vol]70 U/RDkzqhj64-565Swm [facility] Comment on above:Performed By: #### JASON, LIPA, CMP ####[facility] [address] [address]Dr. Yilan ChangALT [Catalytic activity/Vol]31 U/XKxihns04-72Fuj [facility] HospitalComment on above:Performed By: #### JASON, LIPA, CMP ####[facility] Isemnpzpuz0[address] [place], [place] [address]Dr. Yilan ChangAnion gap [Moles/Vol]12.0 mmol/LNormal The [facility] HospitalComment on above:Performed By: #### JASON, LIPA, CMP ####[facility] Rshyksgawv4[address] [place], [place] [address]Dr. Yilan ChangAST [Catalytic activity/Vol]30 U/HWfznny44-26Cuo [facility] Comment on above:Performed By: #### JASON, LIPA, CMP ####[facility] Glsamuudjr[address] [place], [place] [address]Dr. Yilan ChangBilirubin [Mass/Vol]0.5 mg/dLNormal0.2-1.0The [facility] HospitalComment on above:Performed By: #### JASON, LIPA, CMP ####[facility] Xzgkfugxll[address] [place], [place] [address]Dr. Yilan ChangCalcium [Mass/Vol]8.2 mg/dLCritically low8.5-10.1The [facility] HospitalComment on above:Performed By: #### JASON, LIPA, CMP ####[facility] Eszflvaqii7[address] [place], [place] [address]Dr. Yilan ChangChloride [Moles/Vol]108 mmol/LCritically ofxq59-454Gjw [facility] HospitalComment on above:Performed By: #### JASON, LIPA, CMP ####[facility] Sslqlqcivu[address] [place], [place] [address]Dr. Yilan ChangCO2 [Moles/Vol]25.5 mmol/JWhqxvn38.0-32.0The [facility] HospitalComment on above: Performed By: #### JASON LIPA, CMP ####[facility] [address] [address]Dr. Yilan ChangCreatinine [Mass/Vol]0.68 mg/dL Critically low0.70-1.30The [facility] HospitalComment on above:Performed By: #### JASON LIPA, CMP ####[facility] Wpuaaoamsd[address] [place], [place] [address]Dr. Yilan ChangEGFR-AF YEMENI>60Normal>=60The [facility] Comment on above:Performed By: #### JASON, LIPA, CMP ####[facility] Mwcbonwywf7[address] [place], [place] [address]Dr. Yilan ChangEGFR-NON AF YEMENI>60Normal>=60The [facility] HospitalComment on above:Performed By: #### JASON LIPA, CMP ####[facility] Drwxzqphmc82[address] [place], [place] [address]Dr. Yilan ChangGlobulin (S) [Mass/Vol]2.4 g/dLNormalThe St. [facility] HospitalComment on above:Performed By: #### JASON LIPA, CMP ####[facility] Nuliqioqyc[address] [place], [place] [address]Dr. Yilan ChangGlucose [Mass/Vol]109 mg/dLCritically dyod37-451Lrh [facility] HospitalComment on above: Performed By: #### JASON, LIPA, CMP ####[facility] Cfernxbnay[address] [place], [place] [address]Dr. Yilan ChangPotassium [Moles/Vol]3.5 mmol/LNormal 3.5-5.1The [facility] HospitalComment on above:Performed By: #### JASON, LIPA, CMP ####[facility] Tcljwmaxwr[address] [place], [place] [address]Dr. Yilan ChangProtein [Mass/Vol]5.7 g/dLCritically low6.4-8.2[facility] Comment on above:Performed By: #### JASON, LIPA, CMP ####[facility] [address] [address]Dr. Rosa ChangSodium [Moles/Vol]142 mmol/SIrflth447-796Hkt [facility] HospitalComment on above: Performed By: #### ADRIANO GOMEZ, CMP ####[facility] [address]xwg[address] [address]Dr. Rosa ChangUrea nitrogen [Mass/Vol]9.0 mg/dL Normal7.0-18.0The [facility] HospitalComment on above:Performed By: #### ADRIANO GOMEZ, CMP ####[facility] [address]qfscx[address] [address]Dr. Rosa ChangUrea nitrogen/Creatinine [Mass ratio]13.2 mg/mgNormalThe St. [facility] HospitalComment on above:Performed By: #### ADRIANO GOMEZ, CMP ####[facility] [address]crgcr[address] [address]Dr. Rosa TranCBC AUTO DIFFon 79-98-9534GMGC #0.0 103/ulNormal0.0-0.1The [facility]ment on above:Performed By: #### CVDTBH #### [facility] [address] [address] [address] Rosa Pearlsophils/100 WBC (Bld)0.3 %Normal0.2-2.0The [facility] Comment on above:Performed By: #### CVDTBH #### [facility] [address] [address] [address] Rosa Carbajal #0.0 103/ulNormal0.0-0.7The [facility] HospitalComment on above: Performed By: #### CVDTBH #### [facility] [address] [address] [address] Rosa Dejesusosinophils/100 WBC (Bld)0.0 %Critically low0.9-7.0The [facility] HospitalComment on above:Performed By: #### CVDTBH #### [facility] [address] [address] [address] Rosa Dejesusrythrocyte distribution width (RBC) [Ratio]13.0 %Moqsyb42.0-15.0 [facility]Comment on above:Performed By: #### CVDTBH #### [facility] [address] [place] [address] Dr. Rosa TranHematocrit (Bld) [Volume fraction]36.9 %Critically low42.0-54.[address] [facility] HospitalComment on above:Performed By: #### CVDTBH #### [facility] [address] [place] [address] Dr. Rosa TranHemoglobin (Bld) [Mass/Vol]12.9 g/dLCritically low14.0-18.0The [facility] HospitalComment on above:Performed By: #### CVDTBH #### [facility] [address] [place] [address] Dr. Rosa TranIG #0.04 10e3/ulCritically high0.00-0.03The [facility] Comment on above:Performed By: #### CVDTBH #### [facility] [address] [place] [address] Dr. Rosa Sanchez %0.3 %Normal0.0-0.5The [facility] HospitalComment on above: Performed By: #### CVDTBH #### [facility] [address] [place] [address] Dr. Rosa Martinez #1.4 103/ulNormal1.2-3.8The [facility] HospitalComment on above:Performed By: #### CVDTBH #### [facility] [address] [place] [address] Dr. Rosa Almeidamphocytes/100 WBC (Bld)11.4 %Critically low20.5-60.0The [facility] HospitalComment on above:Performed By: #### CVDTBH #### [facility] [address] [place] [address] Dr. Rosa TranMANUAL DIFF REQNONormalThe St[facility] HospitalComment on above: Performed By: #### CVDTBH #### [facility] [address] [address] [address] Rosa Peterson (RBC) [Entitic mass]30.8 [address]jKsnvgp40.9-34.0The [facility] HospitalComment on above:Performed By: #### CVDTBH #### [facility] [address] [place] [address] Dr. Rosa Peterson (RBC) [Mass/Vol]35.0 g/jONrfgde88.9-35.2The [facility] HospitalComment on above:Performed By: #### CVDTBH #### [facility] [address] [place] [address] Dr. Rosa Peterson (RBC) [Entitic vol]88.[address] qUVrfuwy84.0-94.0The [facility] HospitalComment on above:Performed By: #### CVDTBH #### [facility] [address] [place] [address] Dr. Rosa Hatch #0.3 103/ulNormal0.3-0.8The [facility] HospitalComment on above:Performed By: #### CVDTBH #### [facility] [address] [place] [address] Dr. Rosa Staffordocytes/100 WBC (Bld)2.7 %Normal1.7-12.0[facility] Comment on above:Performed By: #### CVDTBH #### [facility] [address] [place] [address] Dr. Rosa Nevarez #10.1 103/ulCritically high1.4-6.5The [facility] Comment on above:Performed By: #### CVDTBH #### [facility] [address] [place] [address] Dr. Rosa Vargasutrophils/100 WBC (Bld)85.3 %Critically high43.0-75.0The [facility] HospitalComment on above:Performed By: #### CVDTBH #### [facility] [address] [place] [address] Dr. Rosa Valerolet mean volume (Bld) [Entitic vol]10.2 fLNormal9.5-13.5The [facility] HospitalComment on above:Performed By: #### CVDTBH #### [facility] [address] [place] [address] Dr. Rosa TranPLT248 103/lgColljg316-732Acn [facility] HospitalComment on above: Performed By: #### CVDTBH #### [facility] [address] [place] [address] Dr. Rosa TranRBC4.19 106/ulCritically low4.70-6.10The [facility] HospitalComment on above:Performed By: #### CVDTBH #### [facility] [address] [place] [address] Dr. Rosa TranWBC11.8 103/ulCritically high4.0-11.0The [facility] HospitalComment on above:Performed By: #### CVDTBH #### [facility] [address] [place] [address] Dr. Rosa Herrera ABD/PELVIS WO W CONon [id number] ABD/PELVIS WO W CON EXAMINATION: CTA ABD/PELVIS [...] Gastrointestinal tract: Nondilated. The appendix is normal. Peritoneum/retroperitoneum: No free fluid or gas. Vasculature: Patent. [...] Electronically authenticated by: ALIYAH LAL Date: 2022-08-12 08:48NormMercy Health St. Anne HospitalCovid-19 PCR (CVDTBH)on 06-84-1733SIGF-CoV-2 (COVID-19) RNA VIKAS+probe Ql (Unsp spec)Not detectedNormalNOT DETECTEDDayton Osteopathic Hospital Comment on above:Result Comment: When diagnostic testing is negative, the [...] for this test is supported by the Motor Pool Clerk of Health and Human Service's declaration that circumstances exist to justify the emergency use of in vitro diagnostics for the detection and/or diagnosis of the virus that causes COVID-19. This EUA will remain in effect for the duration of the COVID-19 declaration justifying emergency of IVDs, unless it is terminated or revoked by the FDA (after which the test may no longer be used).Performed By: #### CVDTBH #### [facility] [address] [place] [address] Dr. Rosa TranDRUG SCREEN RAPID (URINE)on 38-47-4640MKAVhhhrlyhEknzxqZOCMJVOB The [facility]. Vincent HospitalComment on above:Performed By: #### DRUGRPD #### [facility] [address] [place] [address] Dr. Rosa TranBARNegativeNormalNEGATIVEThe St. Vincent HospitalComment on above: Performed By: #### DRUGRPD #### [facility] [address] [address] [address] Rosa VelascoPNegativeNormalNEGATIVEDayton Osteopathic HospitalComment on above: Performed By: #### DRUGRPD #### [facility] [address] [address] [address] Rosa TranBZONegativeNormalNEGATIVEDayton Osteopathic HospitalComment on above: Performed By: #### DRUGRPD #### [facility] [address] [address] [address] Rosa TranCOCNegativeNormalNEGATIVEDayton Osteopathic HospitalComment on above: Performed By: #### DRUGRPD #### [facility] [address] [place] [address] Dr. Rosa SimmonsKettering Health MiamisburgComment on above: Result Comment: AMP (Amphetamine): 500ng/mL, BAR (Barbituates): 200 ng/mL, BZO (Benzodiazepines): 150 ng/mL, BUP (Buprenorphine): 10 ng/mL, JOSE LUIS (Cocaine): 150 ng/mL, mAMP (Methamphetamine): 500 ng/mL, MTD (Methadone): 200 ng/mL, OPI (Opiates): 100 ng/mL, OXY (Oxycodone): 100 ng/mL, PCP (Phencyclidine): 25 ng/mL, PPX (Propoxyphene): 300 ng/mL, THC (Cannabinoids): 50 ng/mL, TCA (Trycyclic Antidepressants): 300 ng/mLPerformed By: #### DRUGRPD #### [facility] [address] [place] [address] Dr. Rosa TranDRUG CUT HEADERDRUG CLASS TEST SYSTEM CUT-OFF CONCENTRATIONS ARE FOLLOWS:NormalThe St. [facility] HospitalComformerly [facility] on above:Performed By: #### DRUGRPD #### [facility] [address] [place] [address] Dr. Rosa TranmAMPNegativeNormalNEGATIVEDayton Osteopathic HospitalComformerly [facility] on above: Performed By: #### DRUGRPD #### [facility] [address] [address] [address] Rosa TranMTDNegativeNormalNEGATIVEDayton Osteopathic HospitalComment on above: Performed By: #### DRUGRPD #### [facility] [address] [address] [address] Rosa QuinteroINegativeNormalNEGATIVEDayton Osteopathic HospitalComment on above: Performed By: #### DRUGRPD #### [facility] [address] [address] [address] Rosa TranOXYNegativeNormalNEGATIVEDayton Osteopathic HospitalComment on above: Performed By: #### DRUGRPD #### [facility] [address] [address] [address] Rosa TranPCPNegativeNormalNEGATIVEDayton Osteopathic HospitalComment on above: Performed By: #### DRUGRPD #### [facility] [address] [place] [address] Dr. Rosa TranPPXNegativeNormalNEGATIVEDayton Osteopathic HospitalComment on above: Performed By: #### DRUGRPD #### [facility] [address] [place] [address] Dr. Rosa TranTCAPositiveAbnormalNEGATIVEDayton Osteopathic HospitalComformerly [facility] on above: Performed By: #### DRUGRPD #### [facility] [address] [place] [address] Dr. Rosa TranTHCPositiveAbnormalNEGATIVEDayton Osteopathic HospitalComment on above: Performed By: #### DRUGRPD #### [facility] [address] [address] [address] Rosa TranLACTATE/LACTIC ACIDon 18-15-0719Zzhcxei [Moles/Vol]1.1 mmol/L Normal0.4-1.9The [facility] HospitalComformerly [facility] on above:Performed By: #### LACT ####[facility] [address] [address]Dr. Rosa TranLIPASEon 18-81-4635Ftvcdn [Catalytic activity/Vol]55.0 U/LCritically low73.0-393.0The St. [facility] HospitalComment on above:Performed By: #### CVDTBH #### [facility] [address] [place] [address] Dr. Rosa Del Rosario 14(COMP METB)on 97-99-1804Uvjjebd [Mass/Vol]4.0 g/dLNormal 3.4-5.0The [facility]. [facility] HospitalComment on above:Performed By: #### CVDTBH #### [facility] [address] [place] [address] Dr. Rosa TranAlbumin/Globulin [Mass ratio]1.3 {ratio}NormalThe St. Vincent HospitalComment on above:Performed By: #### CVDTBH #### [facility] [address] [place] [address] Dr. Rosa Santoyo [Catalytic activity/Vol]94 U/FQxsueu43-936Raa St. [facility] HospitalComment on above:Performed By: #### CVDTBH #### [facility] [address] [place] [address] Dr. Rosa Macdonald [Catalytic activity/Vol]32 U/TPustah84-30Kzt St. Vincent HospitalComment on above:Performed By: #### CVDTBH #### [facility] [address] [place] [address] Dr. Rosa Diaz gap [Moles/Vol]12.2 mmol/LNormalThe [facility] Comment on above:Performed By: #### CVDTBH #### [facility] [address] [place] [address] Dr. Roas Engle [Catalytic activity/Vol]23 U/EBwrcfn57-74Dpi St. Vincent HospitalComment on above:Performed By: #### CVDTBH #### [facility] [address] [place] [address] Dr. Rosa TranBilirubin [Mass/Vol]0.5 mg/dLNormal0.2-1.0The [facility] Comment on above:Performed By: #### CVDTBH #### [facility] [address] [place] [address] Dr. Rosa TranCalcium [Mass/Vol]9.4 mg/dLNormal8.5-10.1The [facility] Comment on above:Performed By: #### CVDTBH #### [facility] [address] [place] [address] Dr. Rosa TranChloride [Moles/Vol]106 mmol/BZpclvm71-653Cmb [facility] Comment on above:Performed By: #### CVDTBH #### [facility] [address] [place] [address] Dr. Rosa TranCO2 [Moles/Vol]25.3 mmol/LUtpbdp08.0-32.0The [facility] Comment on above:Performed By: #### CVDTBH #### [facility] [address] [place] [address] Dr. Rosa TranCreatinine [Mass/Vol]0.76 mg/dLNormal0.70-1.30The [facility] HospitalComment on above:Performed By: #### CVDTBH #### [facility] [address] [place] [address] Dr. Rosa DejesusGFR-AF YEMENI>60Normal>=60The St. [facility] HospitalComment on above:Performed By: #### CVDTBH #### [facility] [address] [place] [address] Dr. Rosa DejesusGFR-NON AF YEMENI>60Normal>=60The [facility]. [facility] HospitalComment on above:Performed By: #### CVDTBH #### [facility] [address] [place] [address] Dr. Rosa TranGlobulin (S) [Mass/Vol]3.0 g/dLNormalThe St. Vincent HospitalComment on above:Performed By: #### CVDTBH #### [facility] [address] [place] [address] Dr. Rosa TranGlucose [Mass/Vol]129 mg/dLCritically aeua12-584Nwx St. [facility] HospitalComment on above:Performed By: #### CVDTBH #### [facility] [address] [place] [address] Dr. Rosa TranPotassium [Moles/Vol]3.5 mmol/LNormal3.5-5.1The [facility] Comment on above:Performed By: #### CVDTBH #### [facility] [address] [place] [address] Dr. Rosa TranProtein [Mass/Vol]7.0 g/dLNormal6.4-8.2[facility] Comment on above:Performed By: #### CVDTBH #### [facility] [address] [place] [address] Dr. Rosa TranSodium [Moles/Vol]140 mmol/AQqwknp860-329Huz [facility] Comment on above:Performed By: #### CVDTBH #### [facility] [address] [place] [address] Dr. Rosa TranUrea nitrogen [Mass/Vol]11.0 mg/dLNormal7.0-18.0The [facility] HospitalComment on above:Performed By: #### CVDTBH #### [facility] [address] [place] [address] Dr. Rosa Doan nitrogen/Creatinine [Mass ratio]14.5 mg/mgNormalThe St. Vincent HospitalComment on above:Performed By: #### CVDTBH #### [facility] [address] [place] [address] Dr. Rosa TranAMYLASEon 89-50-8803Isnmltu [Catalytic activity/Vol]67 U/LNormal 25-115The [facility]. [facility] HospitalComment on above:Performed By: #### CVDTBH #### [facility] [address] [place] [address] Dr. Rosa HathawayC AUTO DIFFon 28-28-9526OEMK #0.1 103/ulNormal0.0-0.1The St[facility] HospitalComment on above:Performed By: #### CVDTBH #### [facility] [address] [place] [address] Dr. Rosa TranBasophils/100 WBC (Bld)0.4 %Normal0.2-2.0[facility] Comment on above:Performed By: #### CVDTBH #### [facility] [address] [place] [address] Dr. Rosa Carbajal #0.1 103/ulNormal0.0-0.7The [facility] HospitalComment on above: Performed By: #### CVDTBH #### [facility] [address] [place] [address] Dr. Rosa Dejesusosinophils/100 WBC (Bld)0.6 %Critically low0.9-7.0The [facility] HospitalComment on above:Performed By: #### CVDTBH #### [facility] [address] [place] [address] Dr. Rosa Dejesusrythrocyte distribution width (RBC) [Ratio]12.9 %Uzdsmk97.0-15.0 [facility] HospitalComment on above:Performed By: #### CVDTBH #### [facility] [address] [place] [address] Dr. Rosa TranHematocrit (Bld) [Volume fraction]38.4 %Critically low42.0-54.0 [facility] HospitalComment on above:Performed By: #### CVDTBH #### [facility] [address] [place] [address] Dr. Rosa TranHemoglobin (Bld) [Mass/Vol]13.1 g/dLCritically low14.0-18.0[facility] HospitalComment on above:Performed By: #### CVDTBH #### [facility] [address] [place] [address] Dr. Rosa Sanchez #0.05 10e3/ulCritically high0.00-0.03The [facility] Comment on above:Performed By: #### CVDTBH #### [facility] [address] [place] [address] Dr. Rosa Sanchez %0.4 %Normal0.0-0.5ThSelect Medical TriHealth Rehabilitation HospitalComment on above: Performed By: #### CVDTBH #### [facility] [address] [place] [address] Dr. Rosa Martinez #1.6 103/ulNormal1.2-3.8The [facility] HospitalComment on above:Performed By: #### CVDTBH #### [facility] [address] [place] [address] Dr. Rosa Almeidamphocytes/100 WBC (Bld)12.2 %Critically low20.5-60.0The [facility] HospitalComment on above:Performed By: #### CVDTBH #### [facility] [address] [place] [address] Dr. Rosa Peterson (RBC) [Entitic mass]30.3 lkLjrhvu28.9-34.0The [facility] HospitalComment on above:Performed By: #### CVDTBH #### [facility] [address] [place] [address] Dr. Rosa Peterson (RBC) [Mass/Vol]34.1 g/xUYkhluw99.9-35.2The [facility] HospitalComment on above:Performed By: #### CVDTBH #### [facility] [address] [place] [address] Dr. Rosa Peterson (RBC) [Entitic vol]88.9 vKLewohd91.0-94.0The [facility] HospitalComment on above:Performed By: #### CVDTBH #### [facility] [address] [place] [address] Dr. Rosa Hatch #0.6 103/ulNormal0.3-0.8The [facility] HospitalComment on above:Performed By: #### CVDTBH #### [facility] [address] [place] [address] Dr. Rosa Staffordocytes/100 WBC (Bld)4.6 %Normal1.7-12.0The [facility] Comment on above:Performed By: #### CVDTBH #### [facility] [address] [place] [address] Dr. Rosa Nevarez #11.0 103/ulCritically high1.4-6.5The [facility] Comment on above:Performed By: #### CVDTBH #### [facility] [address] [place] [address] Dr. Rosa Vargasutrophils/100 WBC (Bld)81.8 %Critically high43.0-75.0The [facility] HospitalComment on above:Performed By: #### CVDTBH #### [facility] [address] [place] [address] Dr. Rosa TranPlatelet mean volume (Bld) [Entitic vol]10.0 fLNormal9.5-13.5The St. [facility] HospitalComment on above:Performed By: #### CVDTBH #### [facility] [address] [place] [address] Dr. Rosa TranPLT226 103/pkFlptpq838-381Uiw St. [facility] HospitalComment on above: Performed By: #### CVDTBH #### [facility] [address] [place] [address] Dr. Rosa TranRBC4.32 106/ulCritically low4.70-6.10The [facility] HospitalComment on above:Performed By: #### CVDTBH #### [facility] [address] [place] [address] Dr. Rosa TranWBC13.4 103/ulCritically high4.0-11.0The [facility] on above:Performed By: #### CVDTBH #### [facility] [address] [place] [address] Dr. Rosa TranCT ABD/PELV W CONon 10-41-8282MW ABD/PELV W CONEXAMINATION: CT ABD/PELV W CON HISTORY: Spinal muscular atrophy ; [...] Electronically authenticated by: MISAEL DENNY Date: 2022-08-11 08:55NoAvita Health System Ontario HospitalCovid-19 PCR (CVDTBH)on 40-51-9430PUUA-CoV-2 (COVID-19) RNA VIKAS+probe Ql (Unsp spec)Not detectedNormalNOT DETECTEDThe [facility] Comment on above:Result Comment: When diagnostic testing is negative, the [...] for this test is supported by the Motor Pool Clerk of Health and Human Service's declaration that circumstances exist to justify the emergency use of in vitro diagnostics for the detection and/or diagnosis of the virus that causes COVID-19. This EUA will remain in effect for the duration of the COVID-19 declaration justifying emergency of IVDs, unless it is terminated or revoked by the FDA (after which the test may no longer be used).Performed By: #### CVDTBH #### [facility] [address] [place] [address] Dr. Rosa TranLACTATE/LACTIC ACIDon 81-89-3468Mkqfmzc [Moles/Vol]0.5 mmol/L Normal0.4-1.9The [facility]i HospitalComment on above:Performed By: #### CVDTBH #### [facility] [address] [place] [address] Dr. Rosa TranLIPASEon 41-44-8397Ujsfky [Catalytic activity/Vol]73.0 U/LNormal 73.0-393.0The [facility] HospitalComment on above:Performed By: #### CVDTBH #### [facility] [address] [place] [address] Dr. Rosa TranPROF 14(COMP METB)on 00-23-8603Rqkmwtn [Mass/Vol]3.9 g/dLNormal 3.4-5.0The [facility] HospitalComment on above:Performed By: #### CVDTBH #### [facility] [address] [place] [address] Dr. Rosa PatiñoP [Catalytic activity/Vol]91 U/GXgzcgk37-353Khf [facility] HospitalComment on above:Performed By: #### CVDTBH #### [facility] [address] [place] [address] Dr. Rosa PatiñoT [Catalytic activity/Vol]34 U/JVxwmdx28-96Eoj [facility] HospitalComment on above:Performed By: #### CVDTBH #### [facility] [address] [place] [address] Dr. Rosa Diaz gap [Moles/Vol]12.6 mmol/LNormalThe [facility] Comment on above:Performed By: #### CVDTBH #### [facility] [address] [place] [address] Dr. Rosa TranAST [Catalytic activity/Vol]20 U/EMnlesa70-59Qin [facility] HospitalComment on above:Performed By: #### CVDTBH #### [facility] [address] [place] [address] Dr. Rosa TranBilirubin [Mass/Vol]0.3 mg/dLNormal0.2-1.0The [facility] Comment on above:Performed By: #### CVDTBH #### [facility] [address] [address] [address] Rosa TranCalcium [Mass/Vol]9.0 mg/dLNormal8.5-10.1The [facility] Comment on above:Performed By: #### CVDTBH #### [facility] [address] [address] [address] Rosa TranChloride [Moles/Vol]105 mmol/CKxmelc49-016Ogx [facility] Comment on above:Performed By: #### CVDTBH #### [facility] [address] [place] [address] Dr. Rosa TranCO2 [Moles/Vol]26.9 mmol/JFajceq44.0-32.0The [facility] Comment on above:Performed By: #### CVDTBH #### [facility] [address] [place] [address] Dr. Rosa TranCreatinine [Mass/Vol]0.72 mg/dLNormal0.70-1.30The [facility] HospitalComment on above:Performed By: #### CVDTBH #### [facility] [address] [address] [address] Rosa TranGlobulin (S) [Mass/Vol]2.9 g/dLNormalThe St. [facility] HospitalComment on above:Performed By: #### CVDTBH #### [facility] [address] [place] [address] Dr. Rosa TranGlucose [Mass/Vol]125 mg/dLCritically mdnt31-910Ske [facility] HospitalComment on above:Performed By: #### CVDTBH #### [facility] [address] [address] [address] Rosa TranProtein [Mass/Vol]6.8 g/dLNormal6.4-8.2The [facility] Comment on above:Performed By: #### CVDTBH #### [facility] [address] [place] [address] Dr. Rosa TranSodium [Moles/Vol]141 mmol/CVwgyqk999-661Obm [facility] Comment on above:Performed By: #### CVDTBH #### [facility] [address] [address] [address] Rosa Doan nitrogen/Creatinine [Mass ratio]15.3 mg/mgNoAvita Health System Ontario HospitalComment on above:Performed By: #### CVDTBH #### [facility] [address] [place], [place] [address] Dr. Rosa Ruiz 75-84-7342PHAFZrzwmk Visit (GENBMI) TIM CASTELLON ([id number]) 1990 M Date Time Provider Department 04/09/21 2:15 PM [facility] During your visit today, we recorded the [...] left renal vein a (more content not included)...NormalOhioHealth Van Wert HospitalPNon 37-73-0598NOCF Telephone (GENVICKIN) TIM CASTELLON ([id number]) 1990 M Date Time Provider Department 04/09/21 [...] (None) Encounter Status:Closed by MELANI BRANCH on 04/09/21NoSt. [facility] Encounters Encounter DateEncounter [facility] ProviderFacilityStart: 10-16-2024 End: 03-54-5210Nktjzlihc encounterJaclin Antoine CMAProMedica Physicians Saint Luke'S Hospitalt VascularStart: 08-30-2024 End: 40-19-7591jnttphohygGpegcst [facility] Work Phone: Start: 08-30-2024 End: 89-76-9062Sylzqjkw ReferredEliasjulisa Vu DO Work Phone: [facility]-LAB Path Spec [facility] HospStart: 08-28-2024 End: 31-14-9713Jyihzizjk department patient visitPANEWYORK-[facility] S [facility] Hospitaltart: 10-12-2022 End: 42-02-6293yycuiorbiqXJ ANKUSH CARROLL .Facility:S6Olcej: 10-10-2022 End: 59-01-7965jxtoqefivaOT ANKUSH CARROLL .Facility:E3Futhd: 10-07-2022 End: 13-72-4339zmnxrgwritDE MISAEL DENNYFacility:D1Ldosx: 08-12-2022 End: 36-32-6339rysomlnyfuUR ANKUSH CARROLL .Facility:B8Mlbpr: 08-11-2022 End: 31-69-9114euhkgaeasxCR ANKUSH CARROLL .Facility:V4Xzary: 02-06-2022 End: 81-14-2982oawqjlsvhoEZ MERT VU .Facility:H1 Plan of Treatment DateCare ActivityDetailAuthorStart: 57-85-0994NHnI,Tdap and Td Vaccines (2 - Td or Tdap)DTaP,Tdap and Td Vaccines (2 - Td or Tdap)ProMCambridge Medical Center SystemStart: 80-20-9845Rqxog BMI ScreeningAdult BMI ScreeningCenterville SystemStart: 94-96-7255Htaucke ScreeningTobacco ScreeningProUk Healthcare SystemStart: 87-58-6987Inoafqszl vaccinationInfluenza VaccineProUk Healthcare SystemStart: 95-39-2747Nyjjeghz identified in Urine by CultureUrine [facility] Hospitaltart: 93-41-8453Pmicd [facility] Start: 77-48-4274IZXFU-19 Vaccine ( season)COVID-19 Vaccine ( season)[facility] Healthtart: 85-46-7389Roqckxaqgj Screening Depression ScreeningAtrium Healthtart: 60-77-9209Vfavqjr Counseling Tobacco CounselingMercy Health Fairfield Hospital Immunizations Immunization DateImmunizationNotesCare ZkfxorfjEtcauvij58-75-8083TUVBX-34 Vaccine, vector-nr, rS-Ad26, PF, 0.5mLJaclin Antoine CMAMercy Health Fairfield Hospital03-11-2019tetanus toxoid, reduced diphtheria toxoid, and acellular pertussis vaccine, adsorbedJeffrey Pay DO Work Phone: [facility] Payers DatePayer CategoryPayerPolicy [id number] Care Other (unspecified)[employer] Member Subscriber Plan / Payer (Effective 2024-Present) Name: Tim Castellon Relation to Subscriber: Self Name: Tim Castellon Payer ID: [id number] (NAIC) Type: Not on file Address: [facility] [address] [place] [id number] [id number] .1.328552.3.5[id number] .1.573681.3.57[id number] .1.960638.3.5[id number] .1.991005.3.57[id number] 2.0.1.775868.3.57[id number] 2.0.1.582310.3.57[id number] 2.0.1.643527.3.57[id number] 138vu6r6-[id number] 2.0.1.751321.3.579.2.531 Social History DateTypeDetailFacilityTobacco smoking status NHISUnknown if ever smokedSelect [facility] Work Phone: Start: 02-05-2015 End: 89-62-8088RovPchp (finding)[facility] Hospitaltart: 42-22-6817Tyx Assigned At [facility] Hospitaltart: 23-66-3876Sztnwtc smoking status NHISSmokes tobacco dailyCenterville System History of tobacco useCigarette SmokerCenterville SystemStart: 08-13-2020 End: 51-89-5446Uabjzyehra smoked current (pack per day) - Iaxqxfaf0JpzFwydqf Health SystemStart: 38-27-3432Prespbf use and exposureSmokeless tobacco non-user [place] SystemStart: 73-94-6978Ayaeyliao beverage intakeEx-drinker (finding)[place] SystemStart: 08-13-2020 End: 29-31-1431Nacbgg connection and isolation panelProUk Healthcare SystemDo you belong to any clubs or organizations such as zoroastrian groups, unions, fraternal or athletic groups, or school groups?NoPUniversity Hospitals TriPoint Medical Center SystemAre you now , , , , never or living with a partner?Never marriedCenterville SystemHow hard is it for you to pay for the very basics like food, housing, medical care, and heatingNot hard at all [facility] HospitalOn [facility] Software SystemDo you feel stress - tense, restless, nervous, or anxious, or unable to sleep at night because yourmind is troubled all the time - these days [OSQ]To some extentMayo Memorial HospitalKumu Networks SystemStart: 92-15-1482Kfuvaqg Commentpatient refusedProGogirotart: 89-08-0573Nqx assigned at birthNot on fileMemorial Hospitalensembli System Goals DatePatient GoalDesired Activity/StatePersonal health goalComment on above: Evaluation of progress towards goal: Patient plans to discharge home with self care and with assistance from family. Note 10-16-2024 Note Date & BovwLqxoLjptuhet26-04-1572 Miscellaneous Notes* Telephone Encounter - Romi Schultz CMA - 10/16/2024 9:22 AM EDT Made 3 attempts to contact patient for new patient appointment with Vascular with no success. documented in this encounterMemorial Hospitalensembli System Telephone encounter Note 10-16-2024 Note Date & SxjuMnbaRsyfdlbq33-26-1725 Telephone encounter Note* Telephone Encounter - Romi Shcultz CMA - 10/16/2024 9:22 AM EDT Made 3 attempts to contact patient for new patient appointment with Vascular with no success. [facility] HospitalOn [facility] System Progress note 04-09-2021 Note Date & GujgQednQqaziwgv72-78-9092 NoteHNO ID: [id number] Author: Karl Rodrigues PA-C Service: ? Author Type: Physician Cutting Table Operator Type: Progress Notes Filed: 05/21/2021 8:57 AM [...] April 09, 2021 TIME: 2:24 PM PAGER/CONTACT #:[facility] Progress note 04-09-2021 Note Date & HogiLeeiJxadsbfy70-21-9959 NoteHNO ID: [id number] Author: Karma Isabel MD Service: ? Author [...] April 09, 2021 TIME: 2:16 PM PAGER/CONTACT #:[facility] Evaluation note Note Date & TypeNoteFacilityEvaluation noteNo assessment information available [facility] Work Phone: Instructions Note Date & TypeNoteFacilityInstructionsNot on filedocumented in this encounter [facility] Summary Purpose Family History No Family History Records FoundNo Family History Records FoundNo Family History Records FoundNo Family History Records Found Advance Directives Advance Directive Response Recorded Date/ Time Advance Directives No February 20, 2024 12:14pm Date ActivatedDate InactivatedComments01/22/2021 3:07 PM01/25/2021 5:03 PMDate ActivatedDate InactivatedComments01/18/2021 12:41 PM01/19/2021 6:20 PMDate ActivatedDate InactivatedComments10/10/2020 5:30 AM10/11/2020 6:25 PMDate ActivatedDate InactivatedComments01/27/2020 8:39 AM02/02/2020 1:21 PMDate Activated Date InactivatedComments01/25/2020 10:51 AM01/27/2020 7:44 AM Additional Source Comments (unrecognized sect ion and content) No Status Records FoundNo Status Records FoundNo Status Records FoundNo Status Records Found INFORMATION SOURCE (unrecogn ized section and content) DATE CREATED AUTHOR 08/07/2021 [facility] DATE CREATED AUTHOR AUTHOR'S ORGANIZ ATION 10/21/[address] [facility] DATE CREATED AUTHOR AUTHOR'S ORGANIZ ATION 08/30/2024 [facility] DATE CREATED AUTHOR AUTHOR'S ORGANIZ ATION 09/01/2024 [facility] Care Teams (unrecognized sec tion and content) Team Status: Inactive Member Role Status Dates Mert Vu DO Attending Provider Active Start : August 30, 2024 End: August 30, 2024Team MemberRelationshipSpecialtyStart DateEnd Date Sara Hilario, [employer] [address] [place] [address] PCP - GeneralFamily Medicine08/28/24 Goals (unrecognized section and content) Goals may [...] BE BASED ON THE PRIMARY CLINICAL RECORDS. [place] [facility]. provides no warranty or guarantee of the accuracy or completeness of information in this document.
== END 2025-05-27 09:30 | disposition home or self-care (01) ==
PROVIDERS: Emergency Provider Emergency Medicine; PCP Nurse Practitioner Family
DX: T23.101A Burn of first degree of right hand, unspecified site, initial encounter (principal); X10.1XXA Contact with hot food, initial encounter; Z23 Encounter for immunization
CPT/HCPCS: 90471; 90715; 99284